=== PATIENT | female | born 1940 | race African-American/Black ===

== ENCOUNTER 2017-03-29 13:45 | Inpatient (IN) | payer OTHER ==
--- NOTE | 2017-03-29 14:21 | PDOC ---
History of Present Illness <Flor Liang - Last Filed: 03/29/17 16:38> - General History Source: Patient, Family Exam Limitations: No Limitations - History of Present Illness Initial Comments: 03/29/17 14:46 CC: R HIP PAIN, Difficulty ambulating, sent by PCP for CT concerning for septic arthritis Patient is a 76 y.o. female with a PMH of HTN, ESRD (on T,Th,Sat HD), HLD, Ovarian CA who presents today via daughter after daughter recieved a phone call from PMD, Dr. Driscoll, that patient's R hip "was gone." Patient provides a copy of CT and MRI reports with CT showing pleural effusion concerning for septic arthritis. Patient notes she has been unable to ambulate for approximately 1 month. Patient denies any subjective fever, chills, nausea of vomiting. Patient's daughter @ bedside who often assists her mother with ADL's notes that she has not noticed any erythema or swelling of the R hip though she has noted some tenderness to palpation. PMD: Dr. Driscoll Past Surgical: R knee replacement (2009); Hysterectomy (date unknown) Social: (-) nicotine, (-) alcohol, (-) marijuana/cocaine/heroin <Nemo Keane - Last Filed: 03/29/17 19:17> - General Chief Complaint: Pain Stated Complaint: ADMIT (PCP SENT) Time Seen by Provider: 03/29/17 14:05 Past History <Flor Liang - Last Filed: 03/29/17 16:38> - Past Medical History Anemia: Yes Asthma: No Cancer: No Cardiac Disorders: Yes (HTN) CVA: No COPD: No CHF: No Dementia: No Diabetes: Yes Dialysis: Yes (M-W-F) GI Disorders: No Disorders: No HTN: Yes Hypercholesterolemia: Yes Liver Disease: No Seizures: No Thyroid Disease: No - Surgical History Abdominal Surgery: No Cholecystectomy: Yes Lung Surgery: No Orthopedic Surgery: Yes (RT KNEE REPLACEMENT) - Immunization History Immunization Up to Date: Yes - Psycho/Social/Smoking Cessation Hx Anxiety: No Suicidal Ideation: No Smoking History: Never smoked Have you smoked in the past 12 months: No Number of Cigarettes Smoked Daily: 0 Hx Alcohol Use: No Drug/Substance Use Hx: No Substance Use Type: None Hx Substance Use Treatment: No <Nemo eKane - Last Filed: 03/29/17 19:17> - Past Medical History Allergies/Adverse Reactions: Allergies Allergy/AdvReac Type Severity Reaction Status Date / Time No Known Drug Allergies Allergy Verified 03/29/17 13:49 Home Medications: Ambulatory Orders Amlodipine Besylate [Norvasc -] 10 mg PO DAILY 08/02/14 Losartan Potassium 100 mg PO DAILY 08/02/14 Ranitidine HCl 150 mg PO BID #0 08/06/14 Atorvastatin Ca [Lipitor] 10 mg PO HS 03/29/17 Labetalol HCl [Normodyne -] 300 mg PO BID 03/29/17 Sevelamer Carbonate [Renvela] 800 mg PO TID 03/29/17 Review of Systems - Review of Systems Constitutional: No: Chills, Diaphoresis, Fever, Malaise HEENTM: No: Blurred Vision, Double Vision, Tinnitus, Hearing Loss Respiratory: No: Cough, Orthopnea, Shortness of Breath, Wheezing Cardiac (ROS): No: Chest Pain, Edema, Lightheadedness, Palpitations ABD/GI: No: Constipated, Diarrhea : No: Burning, Dysuria Musculoskeletal: No: Back Pain, Gout, Joint Pain, Joint Swelling Psychiatric: No: Anxiety, Depression All Other Systems: Reviewed and Negative <Betsy Keaneica - Last Filed: 03/29/17 19:17> *Physical Exam - Vital Signs Last Vital Signs Temp Pulse Resp BP Pulse Ox 97.7 F 62 20 144/72 97 03/29/17 13:46 03/29/17 13:46 03/29/17 13:46 03/29/17 13:46 03/29/17 13:46 <Flor Liang - Last Filed: 03/29/17 16:38> - Vital Signs Last Vital Signs Temp Pulse Resp BP Pulse Ox 97.7 F 62 20 144/72 97 03/29/17 13:46 03/29/17 13:46 03/29/17 13:46 03/29/17 13:46 03/29/17 13:46 - Physical Exam General Appearance: Yes: Nourished, Appropriately Dressed HEENT: positive: EOMI, NI Neck: positive: Trachea midline, Supple Respiratory/Chest: positive: Lungs Clear, Normal Breath Sounds Cardiovascular: positive: Regular Rhythm, Regular Rate, S1, S2 Gastrointestinal/Abdominal: positive: Flat, Soft Musculoskeletal: positive: Decreased Range of Motion (Neurovascularly intact in B/L LE (3+ pedal pulses) ), Other Extremity: positive: Tender (R hip TTP, no appreciable erythema, swelling ), Other. negative: Swelling, Erythema Integumentary: positive: Normal Color, Dry, Warm, Other (Full integumentary examination revealed no ulcers) Neurologic: positive: manager manufacturing II-XII NML intact, Fully Oriented, Alert, Other (B/L LE strength 4/5) <Nemo Keane - Last Filed: 03/29/17 19:17> ED Treatment Course - LABORATORY CBC & Chemistry Diagram: 03/29/17 14:45 03/29/17 14:45 - ADDITIONAL ORDERS Additional order review: Laboratory Results 03/29/17 03/29/17 16:00 14:45 Sodium 131 L Potassium 4.6 Chloride 91 L D Carbon Dioxide 30 Anion Gap 10 BUN 32 H D Creatinine 5.1 H D Random Glucose 101 Calcium 9.9 D C-Reactive Protein 0.7 H 03/29/17 14:45 RBC 4.03 D MCV 89.7 MCHC 32.7 RDW 17.3 H MPV 8.5 D Neutrophils % 59.4 Lymphocytes % 26.2 D Monocytes % 9.2 Eosinophils % 3.7 Basophils % 1.5 <Flor Liang - Last Filed: 03/29/17 16:38> - LABORATORY CBC & Chemistry Diagram: 03/29/17 14:45 03/29/17 14:45 <Nemo Keane - Last Filed: 03/29/17 19:17> Medical Decision Making - Medical Decision Making 03/29/17 14:58 Patient is a 76 y.o. female who presents for CT concerning for R hip septic arthritis. On PE patient is neurovascularly intact and has limited ROM of RLE without any appreciable erythema or swelling of R hip. Bilateral LE strength is 4/5 Full integumentary exam shows no ulcerations thus not a likely source of infection. Phone call by received Dr. Guidry (ID) - will evaluate patient @ bedside in ED - holding Abx until that time. Differential Diagnosis includes Avascular necrosis of the hip vs. Septic arthritis of hip joint vs. spinal pathology. PLAN 1. Blood Cultures x2 2. CBC, BMP 3. ESR, CRP 4. CXR, EKG - for admission 03/29/17 16:16 Patient's CBC remarkable for no leukocytosis. Patient remains afebrile. Patient evaluated by Dr. Shaw (avionics integration engineer for patient's PCP Dr. Driscoll) will be admitted to inpatient medicine service. 03/29/17 18:[address] Guidry in ED -Lumbar spine MRI showed possible osteomyelitis of lumbar spine. <Nemo Keane - Last Filed: 03/29/17 19:17> *DC/Admit/Observation/Transfer - Discharge Dispostion Admit: Yes <Flor Liang - Last Filed: 03/29/17 16:38> - Discharge Dispostion Admit: Yes - Attestations Physician Attestion: Physician Attestation: All decision making and procedures as documented in this note were under my medical decision making. - Dr. Nemo Keane 03/29/17 18:09 <Nemo Keane - Last Filed: 03/29/17 19:17> Diagnosis at time of Disposition: Osteomyelitis - Referrals
[2017-03-29 15:05] LABS: BASOPHIL 1.5 % (0-2.0); EOSINOPHIL 3.7 % (0-4.5); MCH 29.4 pg (25.7-33.7); MCHC 32.7 g/dl (32.0-36.0); MEAN CELL VOLUME 89.7 fl (80-96); MEAN PLT VOLUME 8.5 fl (7.5-11.1); NEUTROPHILS 59.4 % (42.8-82.8); PLATELET COUNT 186 K/MM3 (134-434); RDW 17.3 % (11.6-15.6); WHITE BLOOD COUNT 5.4 K/mm3 (4.0-10.0)
[2017-03-29 15:25] LABS: ANION GAP 10 (8-16); CALCIUM 9.9 mg/dL (8.5-10.1); CO2 30 mmol/L (21-32); CREATININE 5.1 mg/dL (0.55-1.02); GLUCOSE,RANDOM 101 mg/dL (74-106)
--- NOTE | 2017-03-29 16:15 | HP ---
Admitting History and Physical - Primary Care Physician PCP: Gautam Driscoll - Admission Chief Complaint: My hip hurts History of Present Illness: Ms Crain is a very pleasant 76 year old female who was asked to come in by her PCP Dr Driscoll for concern for a R septic hip joint. She says that approximately 2 weeks ago she developed pain in her R hip. She has not had any trauma to the area. She has not noticed any skin breakage either. She says it came on spontaneously. She describes the pain as an ache, constant, 8/10, radiating to her mid thigh. She says the pain is making it difficult for her to ambulate. She was seen by Dr Driscoll and had an MRI of the spine and CT scan of the hip performed last week. After results were obtained, Dr Driscoll requested patient go to the hospital but at that time she was not feeling bad enough and declined. However the pain and difficulty walking worsened and she was asked to come in again today which she did. Aside from pain she is without complaint. She denies fevers, chills, lightheadedness, dizziness, falls, passing out, chest pain or pressure, shortness of breath, coughing, abdominal pain, nausea, vomiting, anorexia, diarrhea, or swelling. She says she has chronic constipation and this has not changed. She does not make urine secondary to ESRD. History Source: Patient Limitations to Obtaining History: No Limitations - Past Medical History Cardiovascular: Yes: HTN, Hyperlipdemia Renal/: Yes: Renal Failure, Hemodialysis Heme/Onc: Yes: Other (ovarian cancer s/p tahbswo) Endocrine: Yes: Diabetes Mellitus (diet controlled) - Past Surgical History Past Surgical History: Yes: AV Fistula/Graft (recent), Hysterectomy (for ovar ca ), Joint Replacement (R knee), Oopherectomy (for ovar ca), Upper Endoscopy ( several mos ago, negative) - Smoking History Smoking history: Never smoked Have you smoked in the past 12 months: No Aproximately how many cigarettes per day: 0 - Alcohol/Substance Use Hx Alcohol Use: No History of Substance Use: reports: None - Social History ADL: Support Services History of Recent Travel: No Home Medications - Allergies Allergies/Adverse Reactions: Allergies Allergy/AdvReac Type Severity Reaction Status Date / Time No Known Drug Allergies Allergy Verified 03/29/17 13:49 - Home Medications Home Medications: Ambulatory Orders Amlodipine Besylate [Norvasc -] 10 mg PO DAILY 08/02/14 Ferrous Sulfate [Feosol] 325 mg PO TID 08/02/14 Losartan Potassium 25 mg PO DAILY 08/02/14 Pantoprazole Sodium [Protonix -] 40 mg PO DAILY 08/02/14 Simvastatin [Zocor -] 20 mg PO DAILY 08/02/14 Labetalol HCl [Normodyne -] 200 mg PO BID #0 08/06/14 Ranitidine HCl 150 mg PO BID #0 08/06/14 Docusate Sodium [Colace -] 100 mg PO HS 08/19/14 Magnesium Oxide 400 mg PO DAILY 02/27/15 Family Disease History - Family Disease History Family Disease History: Diabetes: Sister, Heart Disease: Sister, Other: Mother ( hypertension) Review of Systems Findings/Remarks: Full review of systems obtained, as per HPI and otherwise negative Physical Examination Vital Signs: Vital Signs Temperature 36.5 C 03/29/17 13:46 Pulse Rate 62 03/29/17 13:46 Respiratory Rate 20 03/29/17 13:46 Blood Pressure 144/72 03/29/17 13:46 O2 Sat by Pulse Oximetry (%) 97 03/29/17 13:46 Constitutional: Yes: Well Nourished, No Distress, Calm Eyes: Yes: Conjunctiva Clear, EOM Intact, PERRL HENT: Yes: Atraumatic, Normocephalic Cardiovascular: Yes: Regular Rate and Rhythm. No: Gallop, Murmur, Rub Respiratory: Yes: Regular, CTA Bilaterally. No: Rales, Rhonchi, Wheezes Gastrointestinal: Yes: Normal Bowel Sounds, Soft. No: Distention, Tenderness Extremities: Yes: WNL Edema: No Integumentary: Yes: WNL. No: Rash Labs: CBC, BMP 03/29/17 14:45 03/29/17 14:45 Imaging - Results Cat Scan: Report Reviewed MRI: Report Reviewed Problem List - Problems (1) Avascular necrosis Assessment/Plan: -patient presents with R hip pain and abnormal CT scan -while concern for septic joint, patient does not appear septic at this time -no signs of infection -possible avascular necrosis, but needs evaluation for possible septic joint -admit to the hospital -ID consulted to evaluate -blood cultures -ortho consult -pain control and PT Code(s): M87.00 - IDIOPATHIC ASEPTIC NECROSIS OF UNSPECIFIED BONE (2) Diabetes Assessment/Plan: -diet controlled -diabetic diet Code(s): E11.9 - TYPE 2 DIABETES MELLITUS WITHOUT COMPLICATIONS (3) ESRD (end stage renal disease) Assessment/Plan: -consult nephrology -continue HD per schedule Code(s): N18.6 - END STAGE RENAL DISEASE (4) Hyperlipidemia Assessment/Plan: -continue lipitor Code(s): E78.5 - HYPERLIPIDEMIA, UNSPECIFIED (5) Hypertension Assessment/Plan: -continue amlodipine, losartan, and labetalol -monitor Code(s): I10 - ESSENTIAL (PRIMARY) HYPERTENSION (6) GERD (gastroesophageal reflux disease) Assessment/Plan: -continue ranitidine Code(s): K21.9 - GASTRO-ESOPHAGEAL REFLUX DISEASE WITHOUT ESOPHAGITIS
--- NOTE | 2017-03-29 16:37 | PDOC ---
Attending Attestation - Resident Resident Name: Nemo Keane - ED Attending Attestation I have performed the following: I have examined & evaluated the patient, The case was reviewed & discussed with the resident, I agree w/resident's findings & plan, Exceptions are as noted - HPI HPI: 03/29/17 16:35 76 yo female with a PMH of HTN, ESRD (on T,Th,Sat HD), HLD, Ovarian CA here with c/o hip pain cant walk . had recent mri concerns for hip effusion, possible septic arthritis. no f/c no other compalints. - Physicial Exam PE: 03/29/17 16:37 awake alert lungs clear heart RRR no mrg abd soft nt nd . ext wwp - Medical Decision Making 03/29/17 16:37 plan will admit for possible ir tap. per IDn, no abx as of yet labs cultures.
[2017-03-29] MEDS ORDERED: HEPARIN NA (PORCINE) 5,000 UNITS/ML 1ML VIAL ONE (18:00)
[2017-03-29] MEDS: HEPARIN NA (PORCINE) 5,000 UNITS/ML 1ML VIAL SQ SCH (18:01)
--- NOTE | 2017-03-29 18:55 | CONSULT ---
Consult Consult Specialty:: infectious diseases Reason for Consultation:: pain in hip - History of Present Illness Chief Complaint: hip pain History of Present Illness: 76 year old female who was asked to come in concern for a R septic hip joint. She says that approximately 2 weeks ago she developed pain in her R hip. She has not had any trauma to the area. She has not noticed any skin breakage either. She says it came on spontaneously. She describes the pain as an ache, constant, 8/10, radiating to her mid thigh. She says the pain is making it difficult for her to ambulate. She was seen by Dr Driscoll and had an MRI of the spine and CT scan of the hip performed last week. After results were obtained, Dr Driscoll requested patient go to the hospital but at that time she was not feeling bad enough and declined. However the pain and difficulty walking worsened and she was asked to come in again today which she did. Aside from pain she is without complaint. She denies fevers, chills, lightheadedness, dizziness, falls, passing out, chest pain or pressure, shortness of breath, coughing, abdominal pain, nausea, vomiting, anorexia, diarrhea, or swelling. patient complaining of r hip pain which is still present .apart from hip pain patient has no other issues no fever,the left side does not have any pain - History Source History Provided By: Patient, Medical Record Limitations to Obtaining History: Poor Historian - Past Medical History Cardio/Vascular: Yes: HTN, Hyperlipdemia Renal/: Yes: Renal Failure, Hemodialysis Endocrine: Yes: Diabetes Mellitus (diet controlled) - Past Surgical History Past Surgical History: Yes: AV Fistula/Graft (recent), Hysterectomy (for ovar ca ), Joint Replacement (R knee), Oopherectomy (for ovar ca), Upper Endoscopy ( several mos ago, negative) - Alcohol/Substance Use Hx Alcohol Use: No History of Substance Use: reports: None - Smoking History Smoking history: Never smoked Have you smoked in the past 12 months: No Aproximately how many cigarettes per day: 0 - Social History Usual Living Arrangement: With Child ADL: Support Services History of Recent Travel: No Home Medications - Allergies Allergies/Adverse Reactions: Allergies Allergy/AdvReac Type Severity Reaction Status Date / Time No Known Drug Allergies Allergy Verified 03/29/17 13:49 - Home Medications Home Medications: Ambulatory Orders Amlodipine Besylate [Norvasc -] 10 mg PO DAILY 08/02/14 Losartan Potassium 100 mg PO DAILY 08/02/14 Ranitidine HCl 150 mg PO BID #0 08/06/14 Atorvastatin Ca [Lipitor] 10 mg PO HS 03/29/17 Labetalol HCl [Normodyne -] 300 mg PO BID 03/29/17 Sevelamer Carbonate [Renvela -] 800 mg PO TID 03/29/17 Docusate Sodium [Colace -] 100 mg PO BID #60 cap 03/30/17 Oxycodone HCl [Roxicodone -] 5 mg PO Q4H PRN #30 tablet MDD 30mg 03/30/17 Polyethylene Glycol 3350 [Miralax 119 gm Btl -] 17 gm PO DAILY #1 bottle Family Disease History - Family Disease History Family Disease History: Diabetes: Sister, Heart Disease: Sister, Other: Mother ( hypertension) Review of Systems - Review of Systems Constitutional: reports: No Symptoms Eyes: reports: No Symptoms HENT: reports: No Symptoms Neck: reports: No Symptoms Cardiovascular: reports: No Symptoms Respiratory: reports: No Symptoms Gastrointestinal: reports: No Symptoms Genitourinary: reports: No Symptoms Musculoskeletal: reports: Joint Pain (rt hip) Integumentary: reports: No Symptoms Neurological: reports: No Symptoms Endocrine: reports: No Symptoms Hematology/Lymphatic: reports: No Symptoms Psychiatric: reports: No Symptoms Physical Exam Vital Signs: Vital Signs Temperature 98.0 F 03/29/17 18:16 Pulse Rate 64 03/29/17 18:38 Respiratory Rate 20 03/29/17 18:38 Blood Pressure 160/73 03/29/17 18:38 O2 Sat by Pulse Oximetry (%) 95 03/29/17 18:38 Constitutional: Yes: Calm, Moderate Distress Eyes: Yes: Conjunctiva Clear HENT: Yes: Atraumatic Neck: Yes: Supple Respiratory: Yes: Regular, CTA Bilaterally Gastrointestinal: Yes: Normal Bowel Sounds, Soft Musculoskeletal: Yes: Other Extremities: Yes: Other Neurological: Yes: Alert, Oriented Psychiatric: Yes: Alert, Oriented Imaging - Results Cat Scan: Report Reviewed, Image Reviewed MRI: Report Reviewed, Image Reviewed Assessment/Plan Problem List - Problems (1) Avascular necrosis Code(s): M87.00 - IDIOPATHIC ASEPTIC NECROSIS OF UNSPECIFIED BONE (2) Diabetes Code(s): E11.9 - TYPE 2 DIABETES MELLITUS WITHOUT COMPLICATIONS (3) ESRD (end stage renal disease) Code(s): N18.6 - END STAGE RENAL DISEASE (4) Hyperlipidemia Code(s): E78.5 - HYPERLIPIDEMIA, UNSPECIFIED (5) Hypertension Code(s): I10 - ESSENTIAL (PRIMARY) HYPERTENSION (6) GERD (gastroesophageal reflux disease) Code(s): K21.9 - GASTRO-ESOPHAGEAL REFLUX DISEASE WITHOUT ESOPHAGITIS changes in the lumbar spine looked at the mri i do not think patient has septic joint,but interestingly patient does have changes in the lumbar region and i am worried looking at the images there could be destruction of vertebras which could be discitis ,osteo or also could be malignancy or just plain artritis destruction her crp and other lab work is normal but her changes are little worrisome plan will not start on any abx i suggest patient get bone biopsy to figure out what exactly is happening rest continue to monitor ortho to see the patient
[2017-03-29 21:02] VITALS: BMI 25.0
[2017-03-29] MEDS: LABETALOL HCL 100 MG TABLET (FP) PO SCH (21:12)
[2017-03-29] MEDS: DOCUSATE SODIUM 100 MG CAPSULE (FP) PO SCH (21:12)
[2017-03-29] MEDS: ATORVASTATIN CA 10 MG TABLET (FP) PO SCH (21:13)
[2017-03-29] MEDS: SEVELAMER CARBONATE 800 MG TAB (FP) PO SCH (21:13)
[2017-03-29] MEDS: oxyCODONE HCL 5 MG TABLET PO PRN (21:13)
[2017-03-30] MEDS: HEPARIN NA (PORCINE) 5,000 UNITS/ML 1ML VIAL SQ SCH ×3 (02:42→18:39)
[2017-03-30] MEDS: oxyCODONE HCL 5 MG TABLET PO PRN ×2 (05:48→21:12)
[2017-03-30] MEDS: SEVELAMER CARBONATE 800 MG TAB (FP) PO SCH ×3 (08:14→17:15)
[2017-03-30 08:43] LABS: EOSINOPHIL 5.9 % (0-4.5); MCH 29.3 pg (25.7-33.7); MCHC 32.9 g/dl (32.0-36.0); MEAN CELL VOLUME 89.3 fl (80-96); MEAN PLT VOLUME 8.6 fl (7.5-11.1); PLATELET COUNT 137 K/MM3 (134-434); WHITE BLOOD COUNT 4.4 K/mm3 (4.0-10.0)
--- NOTE | 2017-03-30 09:00 | CONSULT ---
Consult - text type - Consultation Consultation Note: FULL CONSULT DICTATED IMP: RA RIGHT HIP WITH SEVERE CHANGES AND PROTRUSIO. NO EVIDENCE OF INFECTION PLAN: PATIENT NEEDS AND ELECTIVE TOTAL HIP REPLACEMENT. WE WILL SCHEDULE THE PATIENT ELECTIVELY UPON DC
[2017-03-30 09:06] LABS: ANION GAP 13 (8-16); CALCIUM 9.6 mg/dL (8.5-10.1); CO2 29 mmol/L (21-32); GLUCOSE,RANDOM 76 mg/dL (74-106); MAGNESIUM 2.6 mg/dL (1.8-2.4); PHOSPHOROUS 4.3 mg/dL (2.5-4.9)
--- NOTE | 2017-03-30 09:28 | CONS ---
DATE OF CONSULTATION: 03/30/2017 ORTHOPEDIC CONSULTATION HISTORY OF PRESENT ILLNESS: This is a 76-year-old rheumatoid arthritic patient complaining of worsening pain in her right hip. No recent history of fall or trauma. No fever, no chills. Patient has undergone a right total knee replacement many years ago and was doing quite well there. PHYSICAL EXAMINATION: She has poor motion in all planes of her right hip. No erythema, swelling, ecchymosis. No point tenderness. She has a wound length discrepancy of approximately 1.5 cm., left greater than right. She has excellent range of motion of her right knee with a total knee replacement scar, well healed. No point tenderness. Good stability. Calf is soft, nontender, neurovascularly intact. IMAGING: X-rays which I reviewed in the hospital showed a severely arthritic right hip with protrusio acetabulum. The right total knee replacement appears to be well placed with no evidence of loosening. LABORATORY DATA: Labs appear to be within normal limits. Normal white count. No effusion. 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 Risks, benefits, and alternatives were discussed with the patient. Patient will need an elective right total hip replacement. This can be done electively as an outpatient. Patient can be out of bed, weightbearing as tolerated, and discharged. DEL JEFFRIES M.D. [id number]
[2017-03-30] MEDS: RANITIDINE HCL 150 MG TABLET (FP) PO SCH (09:48)
[2017-03-30] MEDS: amLODIPine BESYLATE 10 MG TABLET (FP) PO SCH (09:49)
[2017-03-30] MEDS: LABETALOL HCL 100 MG TABLET (FP) PO SCH ×2 (09:49→21:12)
[2017-03-30] MEDS: LOSARTAN POTASSIUM 50 MG TABLET (FP) PO SCH (09:49)
[2017-03-30] MEDS: DOCUSATE SODIUM 100 MG CAPSULE (FP) PO SCH ×2 (09:49→21:12)
--- NOTE | 2017-03-30 10:54 | EKG ---
Test Reason : Blood Pressure : / mmHG Vent. Rate : 059 BPM Atrial Rate : 059 BPM P-R Int : 200 ms QRS Dur : 090 ms QT Int : 456 ms P-R-T Axes : 048 -20 121 degrees QTc Int : 451 ms SINUS BRADYCARDIA WITH PREMATURE ATRIAL COMPLEXES MODERATE VOLTAGE CRITERIA FOR LVH, MAY BE NORMAL VARIANT CANNOT RULE OUT SEPTAL INFARCT (CITED ON OR BEFORE 12-AUG-2014) ABNORMAL ECG WHEN COMPARED WITH ECG OF 12-AUG-2014 18:11, PREMATURE ATRIAL COMPLEXES ARE NOW PRESENT Confirmed by ALVARO MOULTON MD ([id number]) on 03/30/2017 10:53:47 AM Referred By: Confirmed By:ALVARO MOULTON MD
[2017-03-30] MEDS: POLYETHYLENE GLYCOL 3350 119 GM BTL PO SCH (11:12)
--- NOTE | 2017-03-30 12:47 | CON.NEP ---
Consult Consult Specialty:: Nephrology Referred by:: Dr. Shaw Reason for Consultation:: ESRD on HD - History of Present Illness Chief Complaint: Hip pain History of Present Illness: This is a 76 year old woman with PMhx of ESRD on HD (TTS at [facility]) x 5 years, Hypertension, Ovarian Ca who presented with hip pain and outpatient imaging studies consistent with joint effusion concerning for septic joint. Pt states that he hip has been painful and ambulation had been worsening x 2 weeks. No fever or chills. Last dialysis was Monday w/o complication. - History Source History Provided By: Patient Limitations to Obtaining History: No Limitations - Past Medical History Cardio/Vascular: Yes: HTN, Hyperlipdemia Renal/: Yes: Renal Failure, Hemodialysis Endocrine: Yes: Diabetes Mellitus (diet controlled) - Past Surgical History Past Surgical History: Yes: AV Fistula/Graft (recent), Hysterectomy (for ovar ca ), Joint Replacement (R knee), Oopherectomy (for ovar ca), Upper Endoscopy ( several mos ago, negative) - Alcohol/Substance Use Hx Alcohol Use: No History of Substance Use: reports: None - Smoking History Smoking history: Never smoked Have you smoked in the past 12 months: No Aproximately how many cigarettes per day: 0 - Social History Usual Living Arrangement: With Child ADL: Support Services History of Recent Travel: No Home Medications - Allergies Allergies/Adverse Reactions: Allergies Allergy/AdvReac Type Severity Reaction Status Date / Time No Known Drug Allergies Allergy Verified 03/29/17 13:49 - Home Medications Home Medications: Ambulatory Orders Amlodipine Besylate [Norvasc -] 10 mg PO DAILY 08/02/14 Losartan Potassium 100 mg PO DAILY 08/02/14 Ranitidine HCl 150 mg PO BID #0 08/06/14 Atorvastatin Ca [Lipitor] 10 mg PO HS 03/29/17 Labetalol HCl [Normodyne -] 300 mg PO BID 03/29/17 Sevelamer Carbonate [Renvela -] 800 mg PO TID 03/29/17 Docusate Sodium [Colace -] 100 mg PO BID #60 cap 03/30/17 Oxycodone HCl [Roxicodone -] 5 mg PO Q4H PRN #30 tablet MDD 30mg 03/30/17 Polyethylene Glycol 3350 [Miralax 119 gm Btl -] 17 gm PO DAILY #1 bottle Family Disease History - Family Disease History Family Disease History: Diabetes: Sister, Heart Disease: Sister, Other: Mother ( hypertension) Review of Systems - Review of Systems Constitutional: reports: No Symptoms Eyes: reports: No Symptoms HENT: reports: No Symptoms Neck: reports: No Symptoms Cardiovascular: reports: No Symptoms Respiratory: reports: No Symptoms Gastrointestinal: reports: No Symptoms Genitourinary: reports: No Symptoms Musculoskeletal: reports: Joint Pain Integumentary: reports: No Symptoms Neurological: reports: No Symptoms Nephrology Consult - Height Height: 5 ft 5 in - Weight Weight: 150 lb 4 oz - BMI Body Mass Index (BMI): 25.0 - Lab Results Anion Gap: Anion Gap Anion Gap 13 (8-16) 03/30/17 07:30 - Imaging Chest X-ray: Report Reviewed - Physical Examination Vital Signs: Vital Signs Temperature 97.8 F 03/30/17 11:50 Pulse Rate 58 L 03/30/17 12:25 Respiratory Rate 18 03/30/17 12:25 Blood Pressure 131/68 03/30/17 12:25 O2 Sat by Pulse Oximetry (%) 96 03/29/17 20:50 Constitutional: Yes: Well Nourished, No Distress, Calm Eyes: Yes: Conjunctiva Clear HENT: Yes: Atraumatic, Normocephalic Neck: Yes: Supple Cardiovascular: Yes: Regular Rate and Rhythm, S1, S2. No: JVD, Murmur, Rub Respiratory: Yes: Regular, CTA Bilaterally. No: Rales, Wheezes Gastrointestinal: Yes: Normal Bowel Sounds, Soft Neurological: Yes: Alert, Oriented Problem List - Problems (1) Avascular necrosis Code(s): M87.00 - IDIOPATHIC ASEPTIC NECROSIS OF UNSPECIFIED BONE (2) Diabetes Code(s): E11.9 - TYPE 2 DIABETES MELLITUS WITHOUT COMPLICATIONS (3) ESRD (end stage renal disease) Code(s): N18.6 - END STAGE RENAL DISEASE (4) Hypertension Code(s): I10 - ESSENTIAL (PRIMARY) HYPERTENSION Assessment/Plan 76 year old woman with PMhx of ESRD on HD (TTS at [facility]) x 5 years, Hypertension, Ovarian Ca who presented with hip pain and outpatient imaging studies consistent with joint effusion concerning for septic joint. #ESRD on HD Pt for her maintenance dialysis today as inpatient will plan for 3.5 hour treatment with UF as tolerated Dose all meds for intermittent HD #Degenerative Hip joint for elective hip replacement as outpatient no evidence of septic joint as per Ortho pain control Supportive care #CKD related Anemia Hgb is at goal no SHARA needed at this time #Hypertenion Continue Labetalol, Losartan, Amlodipine #Renal Osteodystrophy Continue Renvela with meals Thanks Asa Smith DO
--- NOTE | 2017-03-30 14:41 | PN ---
Progress Note, Physician Chief Complaint: Ms Crain has no new complaints. Still with pain in her right hip. No cp, sob, n/ v. Walked with PT today. Confirmed that she does not have pain in her back or numbness. - Current Medication List Current Medications: Active Medications Acetaminophen (Tylenol -) 650 mg PO Q4H PRN PRN Reason: FEVER OR PAIN Amlodipine Besylate (Norvasc -) 10 mg PO DAILY [facility] Last Admin: 03/30/17 09:49 Dose: 10 mg Atorvastatin Calcium (Lipitor -) 10 mg PO HS [facility] Last Admin: 03/29/17 21:13 Dose: 10 mg Docusate Sodium (Colace -) 100 mg PO BID [facility] Last Admin: 03/30/17 09:49 Dose: 100 mg Heparin Sodium (Porcine) (Heparin -) 5,000 unit SQ Q8H-IV [facility] Last Admin: 03/30/17 09:49 Dose: 5,000 unit Labetalol HCl (Normodyne -) 300 mg PO BID [facility] Last Admin: 03/30/17 09:49 Dose: 300 mg Losartan Potassium (Cozaar -) 100 mg PO DAILY [facility] Last Admin: 03/30/17 09:49 Dose: 100 mg Oxycodone HCl (Roxicodone -) 5 mg PO Q4H PRN PRN Reason: PAIN Last Admin: 03/30/17 05:48 Dose: 5 mg Polyethylene Glycol (Miralax (For Daily Use) -) 17 gm PO DAILY [facility] Last Admin: 03/30/17 11:12 Dose: 17 gm Ranitidine HCl (Zantac -) 150 mg PO DAILY [facility] Last Admin: 03/30/17 09:48 Dose: 150 mg Sevelamer Carbonate (Renvela -) 800 mg PO TIDCM [facility] Last Admin: 03/30/17 12:45 Dose: Not Given - Objective Vital Signs: Vital Signs Temperature 36.6 C 03/30/17 11:50 Pulse Rate 58 L 03/30/17 14:25 Respiratory Rate 18 03/30/17 14:25 Blood Pressure 128/74 03/30/17 14:25 O2 Sat by Pulse Oximetry (%) 96 03/30/17 12:09 Constitutional: Yes: Well Nourished, No Distress, Calm Cardiovascular: Yes: Regular Rate and Rhythm. No: Gallop, Murmur, Rub Respiratory: Yes: Regular, CTA Bilaterally. No: Rales, Rhonchi, Wheezes Gastrointestinal: Yes: Normal Bowel Sounds, Soft. No: Distention, Tenderness Extremities: Yes: WNL Edema: No Labs: CBC, BMP 03/30/17 07:30 03/30/17 07:30 Problem List - Problems (1) Discitis of lumbosacral region Code(s): M46.47 - DISCITIS, UNSPECIFIED, LUMBOSACRAL REGION (2) Rheumatoid arthritis involving both hips Code(s): M06.9 - RHEUMATOID ARTHRITIS, UNSPECIFIED (3) Diabetes Code(s): E11.9 - TYPE 2 DIABETES MELLITUS WITHOUT COMPLICATIONS (4) ESRD (end stage renal disease) Code(s): N18.6 - END STAGE RENAL DISEASE (5) Hyperlipidemia Code(s): E78.5 - HYPERLIPIDEMIA, UNSPECIFIED (6) Hypertension Code(s): I10 - ESSENTIAL (PRIMARY) HYPERTENSION (7) GERD (gastroesophageal reflux disease) Code(s): K21.9 - GASTRO-ESOPHAGEAL REFLUX DISEASE WITHOUT ESOPHAGITIS Assessment/Plan (1) Lumbrosacral discitis with destruction Assessment/Plan: -case d/w Dr Guidry and MRI reviewed -will obtain biopsy as concern for infection or malignancy -holdign on antibiotics until after biopsy (2) Rheumatoid arthritis of the R hip -appreciate ortho assistance -outpatient elective hip replacement -continue PT while here (3) Diabetes Assessment/Plan: -diet controlled -diabetic diet Code(s): E11.9 - TYPE 2 DIABETES MELLITUS WITHOUT COMPLICATIONS (4) ESRD (end stage renal disease) Assessment/Plan: -case d/w Dr Smith - TRS Code(s): N18.6 - END STAGE RENAL DISEASE (5) Hyperlipidemia Assessment/Plan: -continue lipitor Code(s): E78.5 - HYPERLIPIDEMIA, UNSPECIFIED (6) Hypertension Assessment/Plan: -continue amlodipine, losartan, and labetalol -monitor Code(s): I10 - ESSENTIAL (PRIMARY) HYPERTENSION (7) GERD (gastroesophageal reflux disease) Assessment/Plan: -continue ranitidine Code(s): K21.9 - GASTRO-ESOPHAGEAL REFLUX DISEASE WITHOUT ESOPHAGITIS
--- NOTE | 2017-03-30 15:24 | PN ---
Progress Note, Physician History of Present Illness: patient stable no new issues plan is for bone biopsy - Current Medication List Current Medications: Active Medications Acetaminophen (Tylenol -) 650 mg PO Q4H PRN PRN Reason: FEVER OR PAIN Amlodipine Besylate (Norvasc -) 10 mg PO DAILY [facility] Last Admin: 03/30/17 09:49 Dose: 10 mg Atorvastatin Calcium (Lipitor -) 10 mg PO HS [facility] Last Admin: 03/29/17 21:13 Dose: 10 mg Docusate Sodium (Colace -) 100 mg PO BID [facility] Last Admin: 03/30/17 09:49 Dose: 100 mg Heparin Sodium (Porcine) (Heparin -) 5,000 unit SQ Q8H-IV [facility] Last Admin: 03/30/17 09:49 Dose: 5,000 unit Labetalol HCl (Normodyne -) 300 mg PO BID [facility] Last Admin: 03/30/17 09:49 Dose: 300 mg Losartan Potassium (Cozaar -) 100 mg PO DAILY [facility] Last Admin: 03/30/17 09:49 Dose: 100 mg Oxycodone HCl (Roxicodone -) 5 mg PO Q4H PRN PRN Reason: PAIN Last Admin: 03/30/17 05:48 Dose: 5 mg Polyethylene Glycol (Miralax (For Daily Use) -) 17 gm PO DAILY [facility] Last Admin: 03/30/17 11:12 Dose: 17 gm Ranitidine HCl (Zantac -) 150 mg PO DAILY [facility] Last Admin: 03/30/17 09:48 Dose: 150 mg Sevelamer Carbonate (Renvela -) 800 mg PO TIDCM [facility] Last Admin: 03/30/17 12:45 Dose: Not Given - Objective Vital Signs: Vital Signs Temperature 97.8 F 03/30/17 11:50 Pulse Rate 58 L 03/30/17 14:55 Respiratory Rate 18 03/30/17 14:55 Blood Pressure 144/74 03/30/17 14:55 O2 Sat by Pulse Oximetry (%) 96 03/30/17 12:09 Constitutional: Yes: No Distress, Calm Cardiovascular: Yes: Regular Rate and Rhythm Respiratory: Yes: Regular, CTA Bilaterally Gastrointestinal: Yes: Normal Bowel Sounds, Soft Musculoskeletal: Yes: WNL Extremities: Yes: Other Neurological: Yes: Alert, Oriented Psychiatric: Yes: Alert, Oriented Assessment/Plan Problem List - Problems (1) Avascular necrosis Code(s): M87.00 - IDIOPATHIC ASEPTIC NECROSIS OF UNSPECIFIED BONE (2) Diabetes Code(s): E11.9 - TYPE 2 DIABETES MELLITUS WITHOUT COMPLICATIONS (3) ESRD (end stage renal disease) Code(s): N18.6 - END STAGE RENAL DISEASE (4) Hyperlipidemia Code(s): E78.5 - HYPERLIPIDEMIA, UNSPECIFIED (5) Hypertension Code(s): I10 - ESSENTIAL (PRIMARY) HYPERTENSION (6) GERD (gastroesophageal reflux disease) Code(s): K21.9 - GASTRO-ESOPHAGEAL REFLUX DISEASE WITHOUT ESOPHAGITIS changes in the lumbar spine plan await for biopsy rest continue current mgmt
[2017-03-30] MEDS: ATORVASTATIN CA 10 MG TABLET (FP) PO SCH (21:12)
[2017-03-31 06:06] LABS: HEP B SURFACE AB Reactive (.)
[2017-03-31] MEDS: oxyCODONE HCL 5 MG TABLET PO PRN ×2 (08:10→12:35)
[2017-03-31] MEDS: ACETAMINOPHEN 325 MG TABLET (FP) PO PRN ×2 (08:11→12:35)
[2017-03-31] MEDS: SEVELAMER CARBONATE 800 MG TAB (FP) PO SCH ×3 (08:12→17:16)
[2017-03-31 08:48] LABS: BASOPHIL 1.4 % (0-2.0); EOSINOPHIL 4.5 % (0-4.5); MCHC 32.5 g/dl (32.0-36.0); MEAN CELL VOLUME 89.3 fl (80-96); MEAN PLT VOLUME 8.3 fl (7.5-11.1); NEUTROPHILS 53.8 % (42.8-82.8); PLATELET COUNT 148 K/MM3 (134-434); RDW 17.1 % (11.6-15.6); WHITE BLOOD COUNT 4.4 K/mm3 (4.0-10.0)
[2017-03-31] MEDS: LABETALOL HCL 100 MG TABLET (FP) PO SCH ×2 (08:59→21:09)
[2017-03-31] MEDS: DOCUSATE SODIUM 100 MG CAPSULE (FP) PO SCH ×2 (08:59→21:09)
[2017-03-31] MEDS: LOSARTAN POTASSIUM 50 MG TABLET (FP) PO SCH (08:59)
[2017-03-31] MEDS: amLODIPine BESYLATE 10 MG TABLET (FP) PO SCH (08:59)
[2017-03-31] MEDS: RANITIDINE HCL 150 MG TABLET (FP) PO SCH (08:59)
[2017-03-31] MEDS: POLYETHYLENE GLYCOL 3350 119 GM BTL PO SCH (09:02)
[2017-03-31 09:19] LABS: MAGNESIUM 2.4 mg/dL (1.8-2.4); PHOSPHOROUS 3.4 mg/dL (2.5-4.9)
[2017-03-31 10:02] LABS: INR 1.09 (0.82-1.09)
[2017-03-31 10:36] LABS: ANION GAP 12 (8-16); CO2 30 mmol/L (21-32); CREATININE 4.2 mg/dL (0.55-1.02); GLUCOSE,RANDOM 84 mg/dL (74-106)
--- NOTE | 2017-03-31 11:59 | PN ---
Progress Note (short form) - Note Progress Note: Ortho Pt seen and examined feeling better today decr pain, incr rom nvi a/p right hip severe djd with protrusio PT pain control elective thr as outpt if continues to have pain may d/c from ortho pov d/w Dr. Huerta
--- NOTE | 2017-03-31 12:23 | PN ---
Progress Note (short form) - Note Progress Note: Renal Follow up for ESRD on HD Pt seen and examined at the bedside reports continued hip discomfort that is helped by pain meds no sob, chest pain s/p dialysis yesterday w/o complication Vital Signs Temperature 98.2 F 03/31/17 07:59 Pulse Rate 64 03/31/17 07:59 Respiratory Rate 18 03/31/17 07:59 Blood Pressure 180/76 03/31/17 07:59 O2 Sat by Pulse Oximetry (%) 96 03/31/17 08:46 Intake & Output 03/28/17 03/29/17 03/30/17 03/31/17 23:59 23:59 23:59 23:59 Intake Total 200 800 325 Balance 200 800 325 Weight 150 lb 4 oz 150 lb 4 oz Gen: NAD CVS: RRR Lungs: CTA Abd: soft NT Ext: No edema CBC, BMP 03/31/17 07:00 03/31/17 07:00 Current Medications Acetaminophen (Tylenol -) 650 mg PO Q4H PRN PRN Reason: FEVER OR PAIN Last Admin: 03/31/17 08:11 Dose: 650 mg Amlodipine Besylate (Norvasc -) 10 mg PO DAILY [facility] Last Admin: 03/31/17 08:59 Dose: 10 mg Atorvastatin Calcium (Lipitor -) 10 mg PO HS [facility] Last Admin: 03/30/17 21:12 Dose: 10 mg Docusate Sodium (Colace -) 100 mg PO BID [facility] Last Admin: 03/31/17 08:59 Dose: 100 mg Heparin Sodium (Porcine) (Heparin -) 5,000 unit SQ Q8H-IV [facility] Last Admin: 03/30/17 18:39 Dose: 5,000 unit Labetalol HCl (Normodyne -) 300 mg PO BID [facility] Last Admin: 03/31/17 08:59 Dose: 300 mg Losartan Potassium (Cozaar -) 100 mg PO DAILY [facility] Last Admin: 03/31/17 08:59 Dose: 100 mg Oxycodone HCl (Roxicodone -) 5 mg PO Q4H PRN PRN Reason: PAIN Last Admin: 03/31/17 08:10 Dose: 5 mg Polyethylene Glycol (Miralax (For Daily Use) -) 17 gm PO DAILY [facility] Last Admin: 03/31/17 09:02 Dose: 17 gm Ranitidine HCl (Zantac -) 150 mg PO DAILY [facility] Last Admin: 03/31/17 08:59 Dose: 150 mg Sevelamer Carbonate (Renvela -) 800 mg PO TIDCM [facility] Last Admin: 03/31/17 11:40 Dose: 800 mg A/P 76 year old woman with PMhx of ESRD on HD (TTS at [facility]) x 5 years, Hypertension, Ovarian Ca who presented with hip pain and outpatient imaging studies consistent with joint effusion concerning for septic joint. #ESRD on HD s/p dialysis yesterday, no acute indication for dialysis today will maintain on TTS schedule while inpatient dose all meds for intermittent HD #Degenerative Hip joint for elective hip replacement as outpatient no evidence of septic joint as per Ortho #Hypertenion Continue Labetalol, Losartan, Amlodipine BP elevated overnight, related to pain? trend BP after she gets all her meds this am #Renal Osteodystrophy Continue Renvela with meals Thanks Asa Smith DO Problem List - Problems (1) Diabetes Code(s): E11.9 - TYPE 2 DIABETES MELLITUS WITHOUT COMPLICATIONS (2) ESRD (end stage renal disease) Code(s): N18.6 - END STAGE RENAL DISEASE (3) Hypertension Code(s): I10 - ESSENTIAL (PRIMARY) HYPERTENSION
--- NOTE | 2017-03-31 12:29 | PN ---
Progress Note, Physician Chief Complaint: Ms Crain has no new complaints. Still with pain in her R hip. No cp, sob, n/v. - Current Medication List Current Medications: Active Medications Acetaminophen (Tylenol -) 650 mg PO Q4H PRN PRN Reason: FEVER OR PAIN Last Admin: 03/31/17 08:11 Dose: 650 mg Amlodipine Besylate (Norvasc -) 10 mg PO DAILY [facility] Last Admin: 03/31/17 08:59 Dose: 10 mg Atorvastatin Calcium (Lipitor -) 10 mg PO HS [facility] Last Admin: 03/30/17 21:12 Dose: 10 mg Docusate Sodium (Colace -) 100 mg PO BID [facility] Last Admin: 03/31/17 08:59 Dose: 100 mg Heparin Sodium (Porcine) (Heparin -) 5,000 unit SQ Q8H-IV [facility] Last Admin: 03/30/17 18:39 Dose: 5,000 unit Labetalol HCl (Normodyne -) 300 mg PO BID [facility] Last Admin: 03/31/17 08:59 Dose: 300 mg Losartan Potassium (Cozaar -) 100 mg PO DAILY [facility] Last Admin: 03/31/17 08:59 Dose: 100 mg Oxycodone HCl (Roxicodone -) 5 mg PO Q4H PRN PRN Reason: PAIN Last Admin: 03/31/17 08:10 Dose: 5 mg Polyethylene Glycol (Miralax (For Daily Use) -) 17 gm PO DAILY [facility] Last Admin: 03/31/17 09:02 Dose: 17 gm Ranitidine HCl (Zantac -) 150 mg PO DAILY [facility] Last Admin: 03/31/17 08:59 Dose: 150 mg Sevelamer Carbonate (Renvela -) 800 mg PO TIDCM [facility] Last Admin: 03/31/17 11:40 Dose: 800 mg - Objective Vital Signs: Vital Signs Temperature 36.8 C 03/31/17 07:59 Pulse Rate 64 03/31/17 07:59 Respiratory Rate 18 03/31/17 07:59 Blood Pressure 180/76 03/31/17 07:59 O2 Sat by Pulse Oximetry (%) 96 03/31/17 08:46 Constitutional: Yes: Well Nourished, No Distress, Calm Cardiovascular: Yes: Regular Rate and Rhythm. No: Gallop, Murmur, Rub Respiratory: Yes: Regular, CTA Bilaterally. No: Rales, Rhonchi, Wheezes Gastrointestinal: Yes: Normal Bowel Sounds, Soft. No: Distention, Tenderness Extremities: Yes: WNL Edema: No Labs: CBC, BMP 03/31/17 07:00 03/31/17 07:00 INR, PTT INR 1.09 (0.82-1.09) 03/31/17 07:00 Problem List - Problems (1) Discitis of lumbosacral region Code(s): M46.47 - DISCITIS, UNSPECIFIED, LUMBOSACRAL REGION (2) Rheumatoid arthritis involving both hips Code(s): M06.9 - RHEUMATOID ARTHRITIS, UNSPECIFIED (3) Diabetes Code(s): E11.9 - TYPE 2 DIABETES MELLITUS WITHOUT COMPLICATIONS (4) ESRD (end stage renal disease) Code(s): N18.6 - END STAGE RENAL DISEASE (5) Hyperlipidemia Code(s): E78.5 - HYPERLIPIDEMIA, UNSPECIFIED (6) Hypertension Code(s): I10 - ESSENTIAL (PRIMARY) HYPERTENSION (7) GERD (gastroesophageal reflux disease) Code(s): K21.9 - GASTRO-ESOPHAGEAL REFLUX DISEASE WITHOUT ESOPHAGITIS Assessment/Plan (1) Lumbrosacral discitis with destruction Assessment/Plan: -planning for biopsy today (2) Rheumatoid arthritis of the R hip -appreciate ortho assistance -outpatient elective hip replacement -continue PT while here (3) Diabetes Assessment/Plan: -diet controlled -diabetic diet Code(s): E11.9 - TYPE 2 DIABETES MELLITUS WITHOUT COMPLICATIONS (4) ESRD (end stage renal disease) Assessment/Plan: -nephrology following -HD TRS Code(s): N18.6 - END STAGE RENAL DISEASE (5) Hyperlipidemia Assessment/Plan: -continue lipitor Code(s): E78.5 - HYPERLIPIDEMIA, UNSPECIFIED (6) Hypertension Assessment/Plan: -continue amlodipine, losartan, and labetalol -monitor Code(s): I10 - ESSENTIAL (PRIMARY) HYPERTENSION (7) GERD (gastroesophageal reflux disease) Assessment/Plan: -continue ranitidine Code(s): K21.9 - GASTRO-ESOPHAGEAL REFLUX DISEASE WITHOUT ESOPHAGITIS
--- NOTE | 2017-03-31 13:32 | PN ---
Progress Note, Physician History of Present Illness: patient stable daughter in room pain continues patient for biopsy today - Current Medication List Current Medications: Active Medications Acetaminophen (Tylenol -) 650 mg PO Q4H PRN PRN Reason: FEVER OR PAIN Last Admin: 03/31/17 12:35 Dose: 650 mg Amlodipine Besylate (Norvasc -) 10 mg PO DAILY [facility] Last Admin: 03/31/17 08:59 Dose: 10 mg Atorvastatin Calcium (Lipitor -) 10 mg PO HS [facility] Last Admin: 03/30/17 21:12 Dose: 10 mg Docusate Sodium (Colace -) 100 mg PO BID [facility] Last Admin: 03/31/17 08:59 Dose: 100 mg Heparin Sodium (Porcine) (Heparin -) 5,000 unit SQ Q8H-IV [facility] Last Admin: 03/30/17 18:39 Dose: 5,000 unit Labetalol HCl (Normodyne -) 300 mg PO BID [facility] Last Admin: 03/31/17 08:59 Dose: 300 mg Losartan Potassium (Cozaar -) 100 mg PO DAILY [facility] Last Admin: 03/31/17 08:59 Dose: 100 mg Oxycodone HCl (Roxicodone -) 5 mg PO Q4H PRN PRN Reason: PAIN Last Admin: 03/31/17 12:35 Dose: 5 mg Polyethylene Glycol (Miralax (For Daily Use) -) 17 gm PO DAILY [facility] Last Admin: 03/31/17 09:02 Dose: 17 gm Ranitidine HCl (Zantac -) 150 mg PO DAILY [facility] Last Admin: 03/31/17 08:59 Dose: 150 mg Sevelamer Carbonate (Renvela -) 800 mg PO TIDCM [facility] Last Admin: 03/31/17 11:40 Dose: 800 mg - Objective Vital Signs: Vital Signs Temperature 98.8 F 03/31/17 13:28 Pulse Rate 60 03/31/17 12:00 Respiratory Rate 18 03/31/17 12:00 Blood Pressure 165/79 03/31/17 12:00 O2 Sat by Pulse Oximetry (%) 96 03/31/17 08:46 Constitutional: Yes: No Distress, Calm Cardiovascular: Yes: Regular Rate and Rhythm Respiratory: Yes: Regular, CTA Bilaterally Gastrointestinal: Yes: Normal Bowel Sounds, Soft Musculoskeletal: Yes: Other Extremities: Yes: Other Neurological: Yes: Alert, Oriented Psychiatric: Yes: Alert Labs: CBC, BMP 03/31/17 07:00 03/31/17 07:00 INR, PTT INR 1.09 (0.82-1.09) 03/31/17 07:00 Assessment/Plan Problem List - Problems (1) Avascular necrosis Code(s): M87.00 - IDIOPATHIC ASEPTIC NECROSIS OF UNSPECIFIED BONE (2) Diabetes Code(s): E11.9 - TYPE 2 DIABETES MELLITUS WITHOUT COMPLICATIONS (3) ESRD (end stage renal disease) Code(s): N18.6 - END STAGE RENAL DISEASE (4) Hyperlipidemia Code(s): E78.5 - HYPERLIPIDEMIA, UNSPECIFIED (5) Hypertension Code(s): I10 - ESSENTIAL (PRIMARY) HYPERTENSION (6) GERD (gastroesophageal reflux disease) Code(s): K21.9 - GASTRO-ESOPHAGEAL REFLUX DISEASE WITHOUT ESOPHAGITIS changes in the lumbar spine plan await for biopsy rest continue current mgmt once we have biopsy then further mgmt
[2017-03-31] MEDS: HEPARIN NA (PORCINE) 5,000 UNITS/ML 1ML VIAL SQ SCH (17:16)
[2017-03-31] MEDS: ATORVASTATIN CA 10 MG TABLET (FP) PO SCH (21:09)
[2017-04-01] MEDS: HEPARIN NA (PORCINE) 5,000 UNITS/ML 1ML VIAL SQ SCH ×3 (01:53→18:43)
[2017-04-01] MEDS: SEVELAMER CARBONATE 800 MG TAB (FP) PO SCH ×3 (07:42→17:26)
[2017-04-01 09:29] LABS: MCH 29.4 pg (25.7-33.7); MCHC 32.7 g/dl (32.0-36.0); MEAN CELL VOLUME 89.9 fl (80-96); MEAN PLT VOLUME 8.9 fl (7.5-11.1); PLATELET COUNT 141 K/MM3 (134-434); RDW 17.2 % (11.6-15.6); WHITE BLOOD COUNT 4.7 K/mm3 (4.0-10.0)
[2017-04-01 09:55] LABS: ALBUMIN 2.6 g/dl (3.4-5.0); ALK PHOS 76 U/L (45-117); ANION GAP 12 (8-16); BILIRUBIN,TOTAL 2.1 mg/dL (0.2-1.0); CALCIUM 9.5 mg/dL (8.5-10.1); CO2 29 mmol/L (21-32); CREATININE 5.4 mg/dL (0.55-1.02); GLUCOSE,RANDOM 140 mg/dL (74-106); PHOSPHOROUS 3.8 mg/dL (2.5-4.9); SGOT/AST 17 U/L (15-37); SGPT/ALT 12 U/L (12-78); TOT PROT 6.9 g/dl (6.4-8.2)
--- NOTE | 2017-04-01 10:59 | PN ---
Physical Exam: Hospitalist covering Dr. Shaw. SUBJECTIVE: Patient seen and examined. Complaining of back pain. No fevers/ chills. OBJECTIVE: Vital Signs Period Temp Pulse Resp BP Sys/Jha Pulse Ox Last 24 Hr 98.4 F-99.0 F 53-63 16-20 162-185/70-92 97-97 GENERAL: The patient is awake, alert, and fully oriented, in no acute distress. HEAD: Normal with no signs of trauma. EYES: PERRL, extraocular movements intact, sclera anicteric, conjunctiva clear. No ptosis. ENT: Ears normal, nares patent, oropharynx clear without exudates, moist mucous membranes. NECK: Trachea midline, full range of motion, supple. LUNGS: Breath sounds equal, clear to auscultation bilaterally, no wheezes, no crackles, no accessory muscle use. HEART: Regular rate and rhythm, S1, S2 . Soft systolic murmur. No rub or gallop. ABDOMEN: Soft, nontender, nondistended, normoactive bowel sounds, no guarding, no rebound, no hepatosplenomegaly, no masses. EXTREMITIES: 2+ pulses, warm, well-perfused, no edema. NEUROLOGICAL: Cranial nerves II through XII grossly intact. 5/5 upper and lower extremity strength bilaterally, no saddle anesthesia. Normal speech, gait not observed. PSYCH: Normal mood, normal affect. SKIN: Warm, dry, normal turgor, no rashes or lesions noted Laboratory Results - last 24 hr 04/01/17 04/01/17 07:45 07:45 WBC 4.7 RBC 3.51 L Hgb 10.3 L Hct 31.5 L MCV 89.9 MCH 29.4 MCHC 32.7 RDW 17.2 H Plt Count 141 MPV 8.9 Sodium 134 L Potassium 4.1 Chloride 93 L Carbon Dioxide 29 Anion Gap 12 BUN 35 H D Creatinine 5.4 H D Creat Clearance w eGFR 7.68 Random Glucose 140 H D Calcium 9.5 Phosphorus 3.8 Total Bilirubin 2.1 H D AST 17 ALT 12 D Alkaline Phosphatase 76 D Total Protein 6.9 Albumin 2.6 L Active Medications Generic Name Dose Route Start Last Admin Trade Name Freq PRN Reason Stop Dose Admin Acetaminophen 650 mg 03/29/17 16:06 03/31/17 12:35 Tylenol - PO 650 mg Q4H PRN Administration FEVER OR PAIN Amlodipine Besylate 10 mg 03/30/17 10:00 03/31/17 08:59 Norvasc - PO 10 mg DAILY NOE Administration Atorvastatin Calcium 10 mg 03/29/17 22:00 03/31/17 21:09 Lipitor - PO 10 mg HS NOE Administration Docusate Sodium 100 mg 03/29/17 22:00 03/31/17 21:09 Colace - PO 100 mg BID NOE Administration Heparin Sodium (Porcine) 5,000 unit 03/29/17 18:00 04/01/17 01:53 Heparin - SQ 5,000 unit Q8H-IV NOE Administration Labetalol HCl 300 mg 03/29/17 22:00 03/31/17 21:09 Normodyne - PO 300 mg BID NOE Administration Losartan Potassium 100 mg 03/30/17 10:00 03/31/17 08:59 Cozaar - PO 100 mg DAILY NOE Administration Oxycodone HCl 5 mg 03/29/17 16:06 03/31/17 12:35 Roxicodone - PO 5 mg Q4H PRN Administration PAIN Polyethylene Glycol 17 gm 03/30/17 10:00 03/31/17 09:02 Miralax (For Daily Use) - PO 17 gm DAILY NOE Administration Ranitidine HCl 150 mg 03/30/17 10:00 03/31/17 08:59 Zantac - PO 150 mg DAILY NOE Administration Sevelamer Carbonate 800 mg 03/29/17 17:30 04/01/17 07:42 Renvela - PO Not Given TIDCM NOE ASSESSMENT/PLAN: 76 year old female with possible discitis. Assessment/Plan (1) Lumbrosacral discitis with destruction Assessment/Plan: -Observe off abx per ID -Plan for biopsy Monday (2) Rheumatoid arthritis of the R hip -No septic arthritis per orthopedics -Plan per elective THR (3) Diabetes Assessment/Plan: -Diet-controlled Code(s): E11.9 - TYPE 2 DIABETES MELLITUS WITHOUT COMPLICATIONS (4) ESRD (end stage renal disease) Assessment/Plan: -HD today -Nephrology following Code(s): N18.6 - END STAGE RENAL DISEASE (5) Hyperlipidemia Assessment/Plan: -Continue Lipitor Code(s): E78.5 - HYPERLIPIDEMIA, UNSPECIFIED (6) Hypertension Assessment/Plan: -Continue amlodipine, losartan, and labetalol -BP above goal; re-assess s/p HD, may need to titrate regimen Code(s): I10 - ESSENTIAL (PRIMARY) HYPERTENSION (7) GERD (gastroesophageal reflux disease) Assessment/Plan: -Continue ranitidine Code(s): K21.9 - GASTRO-ESOPHAGEAL REFLUX DISEASE WITHOUT ESOPHAGITIS Ppx: [facility] Dispo: Observation status. Visit type - Emergency Visit Emergency Visit: Yes ED Registration Date: 03/30/17 Care time: The patient presented to the Emergency Department on the above date and was hospitalized for further evaluation of their emergent condition. - New Patient This patient is new to me today: Yes Date on this admission: 04/02/17 - Critical Care Critical Care patient: No
--- NOTE | 2017-04-01 11:24 | PN ---
Progress Note (short form) - Note Progress Note: Renal Follow up for ESRD on HD Pt seen and examined during dialysis BP 160/80s access with good flow pt w/o complaints Vital Signs Temperature 98.4 F 04/01/17 06:00 Pulse Rate 53 L 04/01/17 10:10 Respiratory Rate 18 04/01/17 10:10 Blood Pressure 178/76 04/01/17 10:10 O2 Sat by Pulse Oximetry (%) 97 04/01/17 06:40 Intake & Output 03/29/17 03/30/17 03/31/17 04/01/17 23:59 23:59 23:59 23:59 Intake Total 528 669 0955 300 Balance 434 244 6757 300 Weight 150 lb 4 oz 150 lb 4 oz Gen: NAD CVS: RRR Lungs: CTA Abd: soft NT Ext: No edema CBC, BMP 04/01/17 07:45 Laboratory Tests 04/01/17 07:45 Sodium 134 L Potassium 4.1 Chloride 93 L Carbon Dioxide 29 Anion Gap 12 BUN 35 H D Creatinine 5.4 H D Calcium 9.5 Phosphorus 3.8 Current Medications Acetaminophen (Tylenol -) 650 mg PO Q4H PRN PRN Reason: FEVER OR PAIN Last Admin: 03/31/17 12:35 Dose: 650 mg Amlodipine Besylate (Norvasc -) 10 mg PO DAILY [facility] Last Admin: 03/31/17 08:59 Dose: 10 mg Atorvastatin Calcium (Lipitor -) 10 mg PO HS [facility] Last Admin: 03/31/17 21:09 Dose: 10 mg Docusate Sodium (Colace -) 100 mg PO BID [facility] Last Admin: 03/31/17 21:09 Dose: 100 mg Heparin Sodium (Porcine) (Heparin -) 5,000 unit SQ Q8H-IV [facility]E Last Admin: 04/01/17 01:53 Dose: 5,000 unit Labetalol HCl (Normodyne -) 300 mg PO BID [facility] Last Admin: 03/31/17 21:09 Dose: 300 mg Losartan Potassium (Cozaar -) 100 mg PO DAILY [facility] Last Admin: 03/31/17 08:59 Dose: 100 mg Oxycodone HCl (Roxicodone -) 5 mg PO Q4H PRN PRN Reason: PAIN Last Admin: 03/31/17 12:35 Dose: 5 mg Polyethylene Glycol (Miralax (For Daily Use) -) 17 gm PO DAILY [facility] Last Admin: 03/31/17 09:02 Dose: 17 gm Ranitidine HCl (Zantac -) 150 mg PO DAILY [facility] Last Admin: 03/31/17 08:59 Dose: 150 mg Sevelamer Carbonate (Renvela -) 800 mg PO TIDCM [facility] Last Admin: 04/01/17 07:42 Dose: Not Given A/P 76 year old woman with PMhx of ESRD on HD (TTS at [facility]) x 5 years, Hypertension, Ovarian Ca who presented with hip pain and outpatient imaging studies consistent with joint effusion concerning for septic joint. #ESRD on HD tolerating dialysis well will maintain on TTS schedule as inpatient #Degenerative Hip joint for elective hip replacement as outpatient no evidence of septic joint as per Ortho #Hypertenion Continue Labetalol, Losartan d/c amlodpine, start nifedpine xl 30mg Daily goal BP < 140/90 #Renal Osteodystrophy Continue Renvela with meals Thanks Asa Smith DO Problem List - Problems (1) Diabetes Code(s): E11.9 - TYPE 2 DIABETES MELLITUS WITHOUT COMPLICATIONS (2) ESRD (end stage renal disease) Code(s): N18.6 - END STAGE RENAL DISEASE (3) Hypertension Code(s): I10 - ESSENTIAL (PRIMARY) HYPERTENSION
[2017-04-01 11:35] LABS: CREATININE 1.9 mg/dL (0.55-1.02)
[2017-04-01] MEDS: NIFEdipine E.R. 30 MG TABLET (FP) PO SCH (11:44)
[2017-04-01] MEDS: RANITIDINE HCL 150 MG TABLET (FP) PO SCH (11:44)
[2017-04-01] MEDS: LABETALOL HCL 100 MG TABLET (FP) PO SCH ×2 (11:45→21:40)
[2017-04-01] MEDS: DOCUSATE SODIUM 100 MG CAPSULE (FP) PO SCH ×2 (11:45→21:45)
[2017-04-01] MEDS: LOSARTAN POTASSIUM 50 MG TABLET (FP) PO SCH (11:45)
[2017-04-01] MEDS: POLYETHYLENE GLYCOL 3350 119 GM BTL PO SCH (11:45)
[2017-04-01] MEDS: amLODIPine BESYLATE 10 MG TABLET (FP) PO SCH (11:59)
--- NOTE | 2017-04-01 12:34 | PN ---
Progress Note, Physician History of Present Illness: patient stable no new issues - Current Medication List Current Medications: Active Medications Acetaminophen (Tylenol -) 650 mg PO Q4H PRN PRN Reason: FEVER OR PAIN Last Admin: 03/31/17 12:35 Dose: 650 mg Atorvastatin Calcium (Lipitor -) 10 mg PO HS [facility] Last Admin: 03/31/17 21:09 Dose: 10 mg Docusate Sodium (Colace -) 100 mg PO BID [facility] Last Admin: 04/01/17 11:45 Dose: 100 mg Heparin Sodium (Porcine) (Heparin -) 5,000 unit SQ Q8H-IV [facility] Last Admin: 04/01/17 11:45 Dose: 5,000 unit Labetalol HCl (Normodyne -) 300 mg PO BID [facility] Last Admin: 04/01/17 11:45 Dose: 300 mg Losartan Potassium (Cozaar -) 100 mg PO DAILY [facility] Last Admin: 04/01/17 11:45 Dose: 100 mg Nifedipine (Procardia Xl -) 30 mg PO DAILY [facility] Last Admin: 04/01/17 11:44 Dose: 30 mg Oxycodone HCl (Roxicodone -) 5 mg PO Q4H PRN PRN Reason: PAIN Last Admin: 03/31/17 12:35 Dose: 5 mg Polyethylene Glycol (Miralax (For Daily Use) -) 17 gm PO DAILY [facility] Last Admin: 04/01/17 11:45 Dose: 17 gm Ranitidine HCl (Zantac -) 150 mg PO DAILY [facility] Last Admin: 04/01/17 11:44 Dose: 150 mg Sevelamer Carbonate (Renvela -) 800 mg PO TIDCM [facility] Last Admin: 04/01/17 11:44 Dose: 800 mg - Objective Vital Signs: Vital Signs Temperature 98.4 F 04/01/17 06:00 Pulse Rate 55 L 04/01/17 10:55 Respiratory Rate 18 04/01/17 10:55 Blood Pressure 184/76 04/01/17 10:55 O2 Sat by Pulse Oximetry (%) 97 04/01/17 06:40 Constitutional: Yes: No Distress, Calm Cardiovascular: Yes: Regular Rate and Rhythm Respiratory: Yes: Regular, CTA Bilaterally Gastrointestinal: Yes: Normal Bowel Sounds, Soft Musculoskeletal: Yes: Other Extremities: Yes: Other Neurological: Yes: Alert, Oriented Psychiatric: Yes: Alert, Oriented Labs: CBC, BMP 08/26/17 07:45 04/01/17 11:00 INR, PTT INR 1.09 (0.82-1.09) 03/31/17 07:00 Assessment/Plan Problem List - Problems (1) Avascular necrosis Code(s): M87.00 - IDIOPATHIC ASEPTIC NECROSIS OF UNSPECIFIED BONE (2) Diabetes Code(s): E11.9 - TYPE 2 DIABETES MELLITUS WITHOUT COMPLICATIONS (3) ESRD (end stage renal disease) Code(s): N18.6 - END STAGE RENAL DISEASE (4) Hyperlipidemia Code(s): E78.5 - HYPERLIPIDEMIA, UNSPECIFIED (5) Hypertension Code(s): I10 - ESSENTIAL (PRIMARY) HYPERTENSION (6) GERD (gastroesophageal reflux disease) Code(s): K21.9 - GASTRO-ESOPHAGEAL REFLUX DISEASE WITHOUT ESOPHAGITIS r/o discitis of the spine plan await for repeat mri'once we have repeat procedure then we will decide further plan
[2017-04-01] MEDS: oxyCODONE HCL 5 MG TABLET PO PRN (13:13)
[2017-04-01] MEDS: ATORVASTATIN CA 10 MG TABLET (FP) PO SCH (21:45)
[2017-04-02] MEDS: HEPARIN NA (PORCINE) 5,000 UNITS/ML 1ML VIAL SQ SCH ×3 (02:06→17:22)
[2017-04-02] MEDS: SEVELAMER CARBONATE 800 MG TAB (FP) PO SCH ×3 (08:07→17:22)
[2017-04-02 08:13] LABS: BASOPHIL 1.4 % (0-2.0); EOSINOPHIL 4.8 % (0-4.5); MCH 29.3 pg (25.7-33.7); MCHC 32.8 g/dl (32.0-36.0); MEAN CELL VOLUME 89.2 fl (80-96); MEAN PLT VOLUME 8.4 fl (7.5-11.1); NEUTROPHILS 50.6 % (42.8-82.8); PLATELET COUNT 134 K/MM3 (134-434); RDW 16.9 % (11.6-15.6); WHITE BLOOD COUNT 4.6 K/mm3 (4.0-10.0)
[2017-04-02 08:43] LABS: ANION GAP 10 (8-16); CO2 29 mmol/L (21-32); CREATININE 4.1 mg/dL (0.55-1.02); GLUCOSE,RANDOM 75 mg/dL (74-106)
[2017-04-02] MEDS: NIFEdipine E.R. 30 MG TABLET (FP) PO SCH (09:21)
[2017-04-02] MEDS: RANITIDINE HCL 150 MG TABLET (FP) PO SCH (09:21)
[2017-04-02] MEDS: POLYETHYLENE GLYCOL 3350 119 GM BTL PO SCH (09:21)
[2017-04-02] MEDS: LOSARTAN POTASSIUM 50 MG TABLET (FP) PO SCH (09:21)
[2017-04-02] MEDS: DOCUSATE SODIUM 100 MG CAPSULE (FP) PO SCH ×2 (09:21→21:05)
[2017-04-02] MEDS: LABETALOL HCL 100 MG TABLET (FP) PO SCH ×2 (09:21→21:05)
--- NOTE | 2017-04-02 10:48 | PN ---
Physical Exam: SUBJECTIVE: Patient seen and examined. Pain is controlled with oxycodone. No BM since admission. OBJECTIVE: HTN up to 207 systolic today. Vital Signs Period Temp Pulse Resp BP Sys/Jha Pulse Ox Last 24 Hr 97.7 F-98.4 F 55-65 18-18 160-192/75-85 97 GENERAL: The patient is awake, alert, and fully oriented, in no acute distress. EYES: PERRL, extraocular movements intact, sclera anicteric, conjunctiva clear. No ptosis. ENT: Ears normal, nares patent, oropharynx clear without exudates, moist mucous membranes. NECK: Trachea midline, full range of motion, supple. LUNGS: Breath sounds equal, clear to auscultation bilaterally, no wheezes, no crackles, no accessory muscle use. HEART: Regular rate and rhythm, S1, S2, soft systolic murmur, no rub or gallop. ABDOMEN: Soft, nontender, nondistended, normoactive bowel sounds, no guarding, no rebound, no hepatosplenomegaly, no masses. EXTREMITIES: 2+ pulses, warm, well-perfused, no edema. NEUROLOGICAL: Cranial nerves II through XII grossly intact. Normal speech, gait not observed. PSYCH: Normal mood, normal affect. SKIN: Warm, dry, normal turgor, no rashes or lesions noted. Laboratory Results - last 24 hr 04/01/17 04/02/17 04/02/17 11:00 07:40 07:40 WBC 4.6 RBC 3.51 L Hgb 10.3 L Hct 31.3 L MCV 89.2 MCH 29.3 MCHC 32.8 RDW 16.9 H Plt Count 134 MPV 8.4 Neutrophils % 50.6 Lymphocytes % 32.4 Monocytes % 10.8 H Eosinophils % 4.8 H Basophils % 1.4 Sodium 132 L Potassium 4.2 Chloride 93 L Carbon Dioxide 29 Anion Gap 10 BUN 9 D 23 H D Creatinine 1.9 H D 4.1 H D Random Glucose 75 D Calcium 9.0 Active Medications Generic Name Dose Route Start Last Admin Trade Name Freq PRN Reason Stop Dose Admin Acetaminophen 650 mg 03/29/17 16:06 03/31/17 12:35 Tylenol - PO 650 mg Q4H PRN Administration FEVER OR PAIN Atorvastatin Calcium 10 mg 03/29/17 22:00 04/01/17 21:45 Lipitor - PO 10 mg HS NOE Administration Docusate Sodium 100 mg 03/29/17 22:00 04/02/17 09:21 Colace - PO 100 mg BID NOE Administration Heparin Sodium (Porcine) 5,000 unit 03/29/17 18:00 04/02/17 09:22 Heparin - SQ 5,000 unit Q8H-IV NOE Administration Labetalol HCl 300 mg 03/29/17 22:00 04/02/17 09:21 Normodyne - PO 300 mg BID NOE Administration Losartan Potassium 100 mg 03/30/17 10:00 04/02/17 09:21 Cozaar - PO 100 mg DAILY NOE Administration Nifedipine 30 mg 04/01/17 11:30 04/02/17 09:21 Procardia Xl - PO 30 mg DAILY NOE Administration Oxycodone HCl 5 mg 03/29/17 16:06 04/01/17 13:13 Roxicodone - PO 5 mg Q4H PRN Administration PAIN Polyethylene Glycol 17 gm 03/30/17 10:00 04/02/17 09:21 Miralax (For Daily Use) - PO 17 gm DAILY NOE Administration Ranitidine HCl 150 mg 03/30/17 10:00 04/02/17 09:21 Zantac - PO 150 mg DAILY NOE Administration Sevelamer Carbonate 800 mg 03/29/17 17:30 04/02/17 08:07 Renvela - PO 800 mg TIDCM NOE Administration ASSESSMENT/PLAN: 76 year old female with possible discitis. Assessment/Plan (1) Lumbrosacral discitis with destruction Assessment/Plan: -Observe off abx per ID -Plan for biopsy tomorrow (2) Rheumatoid arthritis of the R hip -No septic arthritis per orthopedics -Plan per elective THR (3) Diabetes Assessment/Plan: -Diet-controlled Code(s): E11.9 - TYPE 2 DIABETES MELLITUS WITHOUT COMPLICATIONS (4) ESRD (end stage renal disease) Assessment/Plan: -HD yesterday -Nephrology following Code(s): N18.6 - END STAGE RENAL DISEASE (5) Hyperlipidemia Assessment/Plan: -Continue Lipitor Code(s): E78.5 - HYPERLIPIDEMIA, UNSPECIFIED (6) Hypertension Assessment/Plan: -Persistently above goal -Continue Losartan, and Labetalol -Increase Nifedipine ER to 60mg daily Code(s): I10 - ESSENTIAL (PRIMARY) HYPERTENSION (7) GERD (gastroesophageal reflux disease) Assessment/Plan: -Continue ranitidine Code(s): K21.9 - GASTRO-ESOPHAGEAL REFLUX DISEASE WITHOUT ESOPHAGITIS Ppx: Hold [facility] for biopsy. Dispo: Observation status. Visit type - Emergency Visit Emergency Visit: Yes ED Registration Date: 03/30/17 Care time: The patient presented to the Emergency Department on the above date and was hospitalized for further evaluation of their emergent condition. - New Patient This patient is new to me today: No - Critical Care Critical Care patient: No
[2017-04-02] MEDS ORDERED: NIFEdipine E.R. 30 MG TABLET (FP) PO ONE (12:48)
--- NOTE | 2017-04-02 12:58 | PN ---
Progress Note, Physician History of Present Illness: patient stable no new issues - Current Medication List Current Medications: Active Medications Acetaminophen (Tylenol -) 650 mg PO Q4H PRN PRN Reason: FEVER OR PAIN Last Admin: 03/31/17 12:35 Dose: 650 mg Atorvastatin Calcium (Lipitor -) 10 mg PO HS [facility] Last Admin: 04/01/17 21:45 Dose: 10 mg Docusate Sodium (Colace -) 100 mg PO BID [facility] Last Admin: 04/02/17 09:21 Dose: 100 mg Heparin Sodium (Porcine) (Heparin -) 5,000 unit SQ Q8H-IV [facility] Last Admin: 04/02/17 09:22 Dose: 5,000 unit Labetalol HCl (Normodyne -) 300 mg PO BID [facility] Last Admin: 04/02/17 09:21 Dose: 300 mg Losartan Potassium (Cozaar -) 100 mg PO DAILY [facility] Last Admin: 04/02/17 09:21 Dose: 100 mg Nifedipine (Procardia Xl -) 60 mg PO DAILY [facility] Nifedipine (Procardia Xl -) 30 mg PO ONCE ONE Stop: 04/02/17 12:49 Oxycodone HCl (Roxicodone -) 5 mg PO Q4H PRN PRN Reason: PAIN Last Admin: 04/01/17 13:13 Dose: 5 mg Polyethylene Glycol (Miralax (For Daily Use) -) 17 gm PO DAILY [facility] Last Admin: 04/02/17 09:21 Dose: 17 gm Ranitidine HCl (Zantac -) 150 mg PO DAILY [facility] Last Admin: 04/02/17 09:21 Dose: 150 mg Senna (Senna -) 1 tab PO [facility] Sevelamer Carbonate (Renvela -) 800 mg PO TIDCM [facility] Last Admin: 04/02/17 11:56 Dose: 800 mg - Objective Vital Signs: Vital Signs Temperature 98.1 F 04/02/17 10:00 Pulse Rate 66 04/02/17 10:00 Respiratory Rate 18 04/02/17 10:00 Blood Pressure 207/87 04/02/17 10:00 O2 Sat by Pulse Oximetry (%) 97 04/01/17 15:00 Constitutional: Yes: No Distress, Calm Cardiovascular: Yes: Regular Rate and Rhythm Respiratory: Yes: Regular, CTA Bilaterally Gastrointestinal: Yes: Normal Bowel Sounds, Soft Musculoskeletal: Yes: WNL Extremities: Yes: Other Neurological: Yes: Alert, Oriented Psychiatric: Yes: Alert, Oriented Labs: CBC, BMP 04/02/17 07:40 04/02/17 07:40 INR, PTT INR 1.09 (0.82-1.09) 03/31/17 07:00 Assessment/Plan Problem List - Problems (1) Avascular necrosis Code(s): M87.00 - IDIOPATHIC ASEPTIC NECROSIS OF UNSPECIFIED BONE (2) Diabetes Code(s): E11.9 - TYPE 2 DIABETES MELLITUS WITHOUT COMPLICATIONS (3) ESRD (end stage renal disease) Code(s): N18.6 - END STAGE RENAL DISEASE (4) Hyperlipidemia Code(s): E78.5 - HYPERLIPIDEMIA, UNSPECIFIED (5) Hypertension Code(s): I10 - ESSENTIAL (PRIMARY) HYPERTENSION (6) GERD (gastroesophageal reflux disease) Code(s): K21.9 - GASTRO-ESOPHAGEAL REFLUX DISEASE WITHOUT ESOPHAGITIS r/o discitis of the spine plan repeat mri awaited final plan after that family in room rest as per primary team
[2017-04-02] MEDS: ATORVASTATIN CA 10 MG TABLET (FP) PO SCH (21:05)
[2017-04-02] MEDS: SENNOSIDES 8.6MG TABLET (FP) PO SCH (21:05)
[2017-04-03 07:20] LABS: BASOPHIL 0.7 % (0-2.0); EOSINOPHIL 4.3 % (0-4.5); MCH 29.7 pg (25.7-33.7); MCHC 33.5 g/dl (32.0-36.0); MEAN CELL VOLUME 88.8 fl (80-96); MEAN PLT VOLUME 8.6 fl (7.5-11.1); NEUTROPHILS 50.7 % (42.8-82.8); PLATELET COUNT 141 K/MM3 (134-434); RDW 16.3 % (11.6-15.6); WHITE BLOOD COUNT 4.9 K/mm3 (4.0-10.0)
[2017-04-03] MEDS: SEVELAMER CARBONATE 800 MG TAB (FP) PO SCH ×3 (07:52→17:05)
[2017-04-03 07:58] LABS: CALCIUM 9.4 mg/dL (8.5-10.1)
[2017-04-03 08:01] LABS: ANION GAP 15 (8-16); CO2 28 mmol/L (21-32); CREATININE 5.2 mg/dL (0.55-1.02); GLUCOSE,RANDOM 73 mg/dL (74-106)
[2017-04-03 08:06] LABS: INR 1.03 (0.82-1.09); PROTHROMBIN TIME (PATIENT) 11.3 SEC (9.98-11.88)
[2017-04-03] MEDS ORDERED: PT OWN MED DRAWER 7, Y5N ONE (09:24)
[2017-04-03] MEDS: LABETALOL HCL 100 MG TABLET (FP) PO SCH ×2 (09:25→21:25)
[2017-04-03] MEDS: DOCUSATE SODIUM 100 MG CAPSULE (FP) PO SCH ×2 (09:25→21:25)
[2017-04-03] MEDS: LOSARTAN POTASSIUM 50 MG TABLET (FP) PO SCH (09:25)
[2017-04-03] MEDS: RANITIDINE HCL 150 MG TABLET (FP) PO SCH (09:25)
[2017-04-03] MEDS: POLYETHYLENE GLYCOL 3350 119 GM BTL PO SCH (09:26)
[2017-04-03] MEDS ORDERED: NIFEdipine E.R 60 MG TABLET (UD) PO SCH (10:00)
[2017-04-03] MEDS: ACETAMINOPHEN 325 MG TABLET (FP) PO PRN (11:24)
[2017-04-03] MEDS: oxyCODONE HCL 5 MG TABLET PO PRN (11:25)
--- NOTE | 2017-04-03 11:52 | PN ---
Progress Note (short form) - Note Progress Note: Renal Follow up for ESRD on HD Pt seen and examined at the bedside reports some back and hip discomfort no fevers, CP, SOB, N/V/D Pt denies drinking a lot of water last dialysis was Monday Vital Signs Temperature 99.3 F 04/03/17 07:49 Pulse Rate 66 04/03/17 07:49 Respiratory Rate 18 04/03/17 07:49 Blood Pressure 163/83 04/03/17 07:49 O2 Sat by Pulse Oximetry (%) 98 04/03/17 08:43 Intake & Output 03/31/17 04/01/17 04/02/17 04/03/17 23:59 23:59 23:59 23:59 Intake Total 1150 850 500 100 Balance 1150 850 500 100 Gen: NAD CVS: RRR Lungs: CTA Abd: soft NT Ext: No edema CBC, BMP 04/03/17 06:00 04/03/17 05:40 Current Medications Acetaminophen (Tylenol -) 650 mg PO Q4H PRN PRN Reason: FEVER OR PAIN Last Admin: 04/03/17 11:24 Dose: 650 mg Atorvastatin Calcium (Lipitor -) 10 mg PO HS [facility] Last Admin: 04/02/17 21:05 Dose: 10 mg Docusate Sodium (Colace -) 100 mg PO BID [facility] Last Admin: 04/03/17 09:25 Dose: 100 mg Heparin Sodium (Porcine) (Heparin -) 5,000 unit SQ Q8H-IV [facility] Last Admin: 04/02/17 17:22 Dose: 5,000 unit Labetalol HCl (Normodyne -) 300 mg PO BID [facility] Last Admin: 04/03/17 09:25 Dose: 300 mg Losartan Potassium (Cozaar -) 100 mg PO DAILY [facility] Last Admin: 04/03/17 09:25 Dose: 100 mg Nifedipine (Procardia Xl -) 60 mg PO DAILY [facility] Last Admin: 04/03/17 09:26 Dose: 60 mg Oxycodone HCl (Roxicodone -) 5 mg PO Q4H PRN PRN Reason: PAIN Last Admin: 04/03/17 11:25 Dose: 5 mg Polyethylene Glycol (Miralax (For Daily Use) -) 17 gm PO DAILY [facility] Last Admin: 04/03/17 09:26 Dose: 17 gm Ranitidine HCl (Zantac -) 150 mg PO DAILY [facility] Last Admin: 04/03/17 09:25 Dose: 150 mg Senna (Senna -) 1 tab PO HS [facility] Last Admin: 04/02/17 21:05 Dose: 1 tab Sevelamer Carbonate (Renvela -) 800 mg PO TIDCM [facility] Last Admin: 04/03/17 11:22 Dose: 800 mg A/P 76 year old woman with PMhx of ESRD on HD (TTS at [facility]) x 5 years, Hypertension, Ovarian Ca who presented with hip pain and outpatient imaging studies consistent with joint effusion concerning for septic joint. #ESRD on HD no acute indication for dialysis today next treatment is for tomorrow dose all meds for intermittent HD #Degenerative Hip joint/Lumbar Osteomylitis for elective hip replacement as outpatient no evidence of septic joint as per Ortho MRI findings noted Pending Biopsy #Hypertenion Continue Labetalol, Losartan BP remains above gaol increased Nifedpine XL to 60mg BID #Renal Osteodystrophy Continue Renvela with meals Thanks Asa Smith DO Problem List - Problems (1) Diabetes Code(s): E11.9 - TYPE 2 DIABETES MELLITUS WITHOUT COMPLICATIONS (2) ESRD (end stage renal disease) Code(s): N18.6 - END STAGE RENAL DISEASE (3) Hypertension Code(s): I10 - ESSENTIAL (PRIMARY) HYPERTENSION
--- NOTE | 2017-04-03 12:15 | PN ---
Progress Note, Physician History of Present Illness: patient stable no new issues - Current Medication List Current Medications: Active Medications Acetaminophen (Tylenol -) 650 mg PO Q4H PRN PRN Reason: FEVER OR PAIN Last Admin: 04/03/17 11:24 Dose: 650 mg Atorvastatin Calcium (Lipitor -) 10 mg PO HS [facility] Last Admin: 04/02/17 21:05 Dose: 10 mg Docusate Sodium (Colace -) 100 mg PO BID [facility] Last Admin: 04/03/17 09:25 Dose: 100 mg Heparin Sodium (Porcine) (Heparin -) 5,000 unit SQ Q8H-IV [facility] Last Admin: 04/02/17 17:22 Dose: 5,000 unit Labetalol HCl (Normodyne -) 300 mg PO BID [facility] Last Admin: 04/03/17 09:25 Dose: 300 mg Losartan Potassium (Cozaar -) 100 mg PO DAILY [facility] Last Admin: 04/03/17 09:25 Dose: 100 mg Nifedipine (Procardia Xl -) 60 mg PO BID [facility] Oxycodone HCl (Roxicodone -) 5 mg PO Q4H PRN PRN Reason: PAIN Last Admin: 04/03/17 11:25 Dose: 5 mg Polyethylene Glycol (Miralax (For Daily Use) -) 17 gm PO DAILY [facility] Last Admin: 04/03/17 09:26 Dose: 17 gm Ranitidine HCl (Zantac -) 150 mg PO DAILY [facility] Last Admin: 04/03/17 09:25 Dose: 150 mg Senna (Senna -) 1 tab PO HS [facility] Last Admin: 04/02/17 21:05 Dose: 1 tab Sevelamer Carbonate (Renvela -) 800 mg PO TIDCM [facility] Last Admin: 04/03/17 11:22 Dose: 800 mg - Objective Vital Signs: Vital Signs Temperature 99.3 F 04/03/17 07:49 Pulse Rate 66 04/03/17 07:49 Respiratory Rate 18 04/03/17 07:49 Blood Pressure 163/83 04/03/17 07:49 O2 Sat by Pulse Oximetry (%) 98 04/03/17 08:43 Constitutional: Yes: No Distress, Calm Eyes: Yes: Conjunctiva Clear Cardiovascular: Yes: Regular Rate and Rhythm Respiratory: Yes: Regular, CTA Bilaterally Gastrointestinal: Yes: Normal Bowel Sounds, Soft Musculoskeletal: Yes: WNL Extremities: Yes: WNL Neurological: Yes: Alert, Oriented Psychiatric: Yes: Alert, Oriented Labs: CBC, BMP 04/03/17 06:00 04/03/17 05:40 INR, PTT INR 1.03 (0.82-1.09) 04/03/17 06:00 - ....Imaging MRI: Report Reviewed, Image Reviewed Assessment/Plan Problem List - Problems (1) Avascular necrosis Code(s): M87.00 - IDIOPATHIC ASEPTIC NECROSIS OF UNSPECIFIED BONE (2) Diabetes Code(s): E11.9 - TYPE 2 DIABETES MELLITUS WITHOUT COMPLICATIONS (3) ESRD (end stage renal disease) Code(s): N18.6 - END STAGE RENAL DISEASE (4) Hyperlipidemia Code(s): E78.5 - HYPERLIPIDEMIA, UNSPECIFIED (5) Hypertension Code(s): I10 - ESSENTIAL (PRIMARY) HYPERTENSION (6) GERD (gastroesophageal reflux disease) Code(s): K21.9 - GASTRO-ESOPHAGEAL REFLUX DISEASE WITHOUT ESOPHAGITIS r/o discitis of the spine repeat mri note noted patient as suspected has mri/or discitits patient needs a biopsy rest as per primary
--- NOTE | 2017-04-03 12:41 | PN ---
Progress Note, Physician Chief Complaint: Ms Crain has no new complaints. Still with pain in her R hip. No cp, sob, n/v. - Current Medication List Current Medications: Active Medications Acetaminophen (Tylenol -) 650 mg PO Q4H PRN PRN Reason: FEVER OR PAIN Last Admin: 04/03/17 11:24 Dose: 650 mg Atorvastatin Calcium (Lipitor -) 10 mg PO HS [facility] Last Admin: 04/02/17 21:05 Dose: 10 mg Docusate Sodium (Colace -) 100 mg PO BID [facility] Last Admin: 04/03/17 09:25 Dose: 100 mg Heparin Sodium (Porcine) (Heparin -) 5,000 unit SQ Q8H-IV [facility] Last Admin: 04/02/17 17:22 Dose: 5,000 unit Labetalol HCl (Normodyne -) 300 mg PO BID [facility] Last Admin: 04/03/17 09:25 Dose: 300 mg Losartan Potassium (Cozaar -) 100 mg PO DAILY [facility] Last Admin: 04/03/17 09:25 Dose: 100 mg Nifedipine (Procardia Xl -) 60 mg PO BID [facility] Oxycodone HCl (Roxicodone -) 5 mg PO Q4H PRN PRN Reason: PAIN Last Admin: 04/03/17 11:25 Dose: 5 mg Polyethylene Glycol (Miralax (For Daily Use) -) 17 gm PO DAILY [facility] Last Admin: 04/03/17 09:26 Dose: 17 gm Ranitidine HCl (Zantac -) 150 mg PO DAILY [facility] Last Admin: 04/03/17 09:25 Dose: 150 mg Senna (Senna -) 1 tab PO HS [facility] Last Admin: 04/02/17 21:05 Dose: 1 tab Sevelamer Carbonate (Renvela -) 800 mg PO TIDCM [facility] Last Admin: 04/03/17 11:22 Dose: 800 mg - Objective Vital Signs: Vital Signs Temperature 37.4 C 04/03/17 07:49 Pulse Rate 66 04/03/17 07:49 Respiratory Rate 18 04/03/17 07:49 Blood Pressure 163/83 04/03/17 07:49 O2 Sat by Pulse Oximetry (%) 98 04/03/17 08:43 Constitutional: Yes: Well Nourished, No Distress, Calm Cardiovascular: Yes: Regular Rate and Rhythm. No: Gallop, Murmur, Rub Respiratory: Yes: Regular, CTA Bilaterally. No: Rales, Rhonchi, Wheezes Gastrointestinal: Yes: Normal Bowel Sounds, Soft. No: Distention, Tenderness Extremities: Yes: WNL Edema: No Labs: INR, PTT INR 1.03 (0.82-1.09) 04/03/17 06:00 Problem List - Problems (1) Discitis of lumbosacral region Code(s): M46.47 - DISCITIS, UNSPECIFIED, LUMBOSACRAL REGION (2) Rheumatoid arthritis involving both hips Code(s): M06.9 - RHEUMATOID ARTHRITIS, UNSPECIFIED (3) Diabetes Code(s): E11.9 - TYPE 2 DIABETES MELLITUS WITHOUT COMPLICATIONS (4) ESRD (end stage renal disease) Code(s): N18.6 - END STAGE RENAL DISEASE (5) Hyperlipidemia Code(s): E78.5 - HYPERLIPIDEMIA, UNSPECIFIED (6) Hypertension Code(s): I10 - ESSENTIAL (PRIMARY) HYPERTENSION (7) GERD (gastroesophageal reflux disease) Code(s): K21.9 - GASTRO-ESOPHAGEAL REFLUX DISEASE WITHOUT ESOPHAGITIS Assessment/Plan (1) Lumbrosacral discitis with destruction Assessment/Plan: -planning for biopsy today -evaluate for possible infectious process (2) Rheumatoid arthritis of the R hip -appreciate ortho assistance -outpatient elective hip replacement -continue PT while here (3) Diabetes Assessment/Plan: -diet controlled -diabetic diet Code(s): E11.9 - TYPE 2 DIABETES MELLITUS WITHOUT COMPLICATIONS (4) ESRD (end stage renal disease) Assessment/Plan: -nephrology following -HD TRS Code(s): N18.6 - END STAGE RENAL DISEASE (5) Hyperlipidemia Assessment/Plan: -continue lipitor Code(s): E78.5 - HYPERLIPIDEMIA, UNSPECIFIED (6) Hypertension Assessment/Plan: -continue losartan and labetalol -amlodipine changed to nifedipine -monitor for improvement Code(s): I10 - ESSENTIAL (PRIMARY) HYPERTENSION (7) GERD (gastroesophageal reflux disease) Assessment/Plan: -continue ranitidine Code(s): K21.9 - GASTRO-ESOPHAGEAL REFLUX DISEASE WITHOUT ESOPHAGITIS
[2017-04-03] MEDS: ATORVASTATIN CA 10 MG TABLET (FP) PO SCH (21:25)
[2017-04-03] MEDS: NIFEdipine E.R. 30 MG TABLET (FP) PO SCH (21:25)
[2017-04-03] MEDS: SENNOSIDES 8.6MG TABLET (FP) PO SCH (21:25)
[2017-04-04] MEDS ORDERED: LABETALOL HCL 100 MG TABLET (FP) PO ONE (01:56)
--- NOTE | 2017-04-04 02:13 | HOSP ---
Physical Examination Vital Signs: Vital Signs Temperature 98.2 F 04/03/17 22:00 Pulse Rate 70 04/03/17 22:00 Respiratory Rate 20 04/04/17 00:00 Blood Pressure 176/85 04/03/17 22:00 O2 Sat by Pulse Oximetry (%) 98 04/04/17 00:00 Hospitalist Encounter Assessment: Paged by RN. Patient found to have BP 200's/100's. Repeat BP was 200's/95. Patient asymptomatic. Patient given 1x dose of labetelol 100 mg PO Visit type - Emergency Visit Emergency Visit: No - New Patient This patient is new to me today: Yes Date on this admission: 04/04/17 - Critical Care Critical Care patient: No
[2017-04-04] MEDS: SEVELAMER CARBONATE 800 MG TAB (FP) PO SCH ×3 (09:00→17:50)
[2017-04-04] MEDS: NIFEdipine E.R. 30 MG TABLET (FP) PO SCH ×2 (09:54→21:28)
[2017-04-04] MEDS: LOSARTAN POTASSIUM 50 MG TABLET (FP) PO SCH (09:54)
[2017-04-04] MEDS: DOCUSATE SODIUM 100 MG CAPSULE (FP) PO SCH ×2 (11:42→21:26)
[2017-04-04] MEDS: RANITIDINE HCL 150 MG TABLET (FP) PO SCH (11:42)
[2017-04-04] MEDS: SPIRONOLACTONE 25 MG TABLET (FP) PO SCH (11:43)
[2017-04-04] MEDS: LABETALOL HCL 100 MG TABLET (FP) PO SCH ×2 (11:43→21:26)
[2017-04-04] MEDS: POLYETHYLENE GLYCOL 3350 119 GM BTL PO SCH (11:43)
--- NOTE | 2017-04-04 12:41 | PN ---
Progress Note (short form) - Note Progress Note: Renal Follow up for ESRD on HD Pt seen and examined at the bedside went down to IR for bone biopsy but was not able to have the procedure done because of very elevated BPs Pt without any acute complaints at this time was given BP dose of Nifedipine last night Vital Signs Temperature 98.5 F 04/04/17 09:50 Pulse Rate 67 04/04/17 11:40 Respiratory Rate 18 04/04/17 11:40 Blood Pressure 193/94 04/04/17 11:40 O2 Sat by Pulse Oximetry (%) 100 04/04/17 10:54 Intake & Output 04/01/17 04/02/17 04/03/17 04/04/17 23:59 23:59 23:59 23:59 Intake Total 850 500 550 0 Balance 850 500 550 0 Gen: NAD CVS: RRR Lungs: CTA Abd: soft NT Ext: No edema CBC, BMP 04/03/17 06:00 04/03/17 05:40 Laboratory Tests 04/03/17 05:40 Calcium 9.4 Current Medications Acetaminophen (Tylenol -) 650 mg PO Q4H PRN PRN Reason: FEVER OR PAIN Last Admin: 04/03/17 11:24 Dose: 650 mg Atorvastatin Calcium (Lipitor -) 10 mg PO HS [facility] Last Admin: 04/03/17 21:25 Dose: 10 mg Docusate Sodium (Colace -) 100 mg PO BID [facility] Last Admin: 04/04/17 11:42 Dose: 100 mg Heparin Sodium (Porcine) (Heparin -) 5,000 unit SQ Q8H-IV [facility] Last Admin: 04/02/17 17:22 Dose: 5,000 unit Labetalol HCl (Normodyne -) 300 mg PO BID [facility] Last Admin: 04/04/17 11:43 Dose: 300 mg Losartan Potassium (Cozaar -) 100 mg PO DAILY [facility] Last Admin: 04/04/17 09:54 Dose: 100 mg Nifedipine (Procardia Xl -) 60 mg PO BID [facility] Last Admin: 04/04/17 09:54 Dose: 60 mg Oxycodone HCl (Roxicodone -) 5 mg PO Q4H PRN PRN Reason: PAIN Last Admin: 04/03/17 11:25 Dose: 5 mg Polyethylene Glycol (Miralax (For Daily Use) -) 17 gm PO DAILY [facility] Last Admin: 04/04/17 11:43 Dose: Not Given Ranitidine HCl (Zantac -) 150 mg PO DAILY [facility] Last Admin: 04/04/17 11:42 Dose: 150 mg Senna (Senna -) 1 tab PO HS [facility] Last Admin: 04/03/17 21:25 Dose: 1 tab Sevelamer Carbonate (Renvela -) 800 mg PO TIDCM [facility] Last Admin: 04/04/17 11:42 Dose: 800 mg Spironolactone (Aldactone -) 25 mg PO DAILY [facility] Last Admin: 04/04/17 11:43 Dose: 25 mg A/P 76 year old woman with PMhx of ESRD on HD (TTS at [facility]) x 5 years, Hypertension, Ovarian Ca who presented with hip pain and outpatient imaging studies consistent with joint effusion concerning for septic joint. #ESRD on HD for dialysis today with gaol UF of 2.5-3L as tolerated #Degenerative Hip joint/Lumbar Osteomylitis IR biopsy deferred to tomorrow because of uncontrolled hypertenson #Hypertenion BP remains above goal Nifedipne increased to 60mg BID (max dose), on Losartan 100mg, Labetalol Cannot titrate BB because of HR Will add aldactone 25mg This am goal BP < 140/90 will UF as tolerated with HD as well if BP remains high prior to procedure tomorrow can given PRN Hydralazine #Renal Osteodystrophy Continue Renvela with meals Thanks Asa Smith DO Problem List - Problems (1) Diabetes Code(s): E11.9 - TYPE 2 DIABETES MELLITUS WITHOUT COMPLICATIONS (2) ESRD (end stage renal disease) Code(s): N18.6 - END STAGE RENAL DISEASE (3) Hypertension Code(s): I10 - ESSENTIAL (PRIMARY) HYPERTENSION
--- NOTE | 2017-04-04 13:10 | PN ---
Progress Note, Physician History of Present Illness: stable for biopsy today - Current Medication List Current Medications: Active Medications Acetaminophen (Tylenol -) 650 mg PO Q4H PRN PRN Reason: FEVER OR PAIN Last Admin: 04/03/17 11:24 Dose: 650 mg Atorvastatin Calcium (Lipitor -) 10 mg PO HS [facility] Last Admin: 04/03/17 21:25 Dose: 10 mg Docusate Sodium (Colace -) 100 mg PO BID [facility] Last Admin: 04/04/17 11:42 Dose: 100 mg Heparin Sodium (Porcine) (Heparin -) 5,000 unit SQ Q8H-IV [facility] Last Admin: 04/02/17 17:22 Dose: 5,000 unit Labetalol HCl (Normodyne -) 300 mg PO BID [facility] Last Admin: 04/04/17 11:43 Dose: 300 mg Losartan Potassium (Cozaar -) 100 mg PO DAILY [facility] Last Admin: 04/04/17 09:54 Dose: 100 mg Nifedipine (Procardia Xl -) 60 mg PO BID [facility] Last Admin: 04/04/17 09:54 Dose: 60 mg Oxycodone HCl (Roxicodone -) 5 mg PO Q4H PRN PRN Reason: PAIN Last Admin: 04/03/17 11:25 Dose: 5 mg Polyethylene Glycol (Miralax (For Daily Use) -) 17 gm PO DAILY [facility] Last Admin: 04/04/17 11:43 Dose: Not Given Ranitidine HCl (Zantac -) 150 mg PO DAILY [facility] Last Admin: 04/04/17 11:42 Dose: 150 mg Senna (Senna -) 1 tab PO HS [facility] Last Admin: 04/03/17 21:25 Dose: 1 tab Sevelamer Carbonate (Renvela -) 800 mg PO TIDCM [facility] Last Admin: 04/04/17 11:42 Dose: 800 mg Spironolactone (Aldactone -) 25 mg PO DAILY [facility] Last Admin: 04/04/17 11:43 Dose: 25 mg - Objective Vital Signs: Vital Signs Temperature 98.5 F 04/04/17 09:50 Pulse Rate 66 04/04/17 12:56 Respiratory Rate 18 04/04/17 12:56 Blood Pressure 157/71 04/04/17 12:56 O2 Sat by Pulse Oximetry (%) 100 04/04/17 10:54 Constitutional: Yes: No Distress, Calm Cardiovascular: Yes: Regular Rate and Rhythm Respiratory: Yes: Regular, CTA Bilaterally Gastrointestinal: Yes: Normal Bowel Sounds, Soft Musculoskeletal: Yes: WNL Extremities: Yes: WNL Neurological: Yes: Alert, Oriented Psychiatric: Yes: Alert, Oriented Labs: INR, PTT INR 1.03 (0.82-1.09) 04/03/17 06:00 - ....Imaging MRI: Report Reviewed, Image Reviewed Assessment/Plan Problem List - Problems (1) Avascular necrosis Code(s): M87.00 - IDIOPATHIC ASEPTIC NECROSIS OF UNSPECIFIED BONE (2) Diabetes Code(s): E11.9 - TYPE 2 DIABETES MELLITUS WITHOUT COMPLICATIONS (3) ESRD (end stage renal disease) Code(s): N18.6 - END STAGE RENAL DISEASE (4) Hyperlipidemia Code(s): E78.5 - HYPERLIPIDEMIA, UNSPECIFIED (5) Hypertension Code(s): I10 - ESSENTIAL (PRIMARY) HYPERTENSION (6) GERD (gastroesophageal reflux disease) Code(s): K21.9 - GASTRO-ESOPHAGEAL REFLUX DISEASE WITHOUT ESOPHAGITIS discitis of the spine r/o osteo plan we will start patient on vanco post biopsy once we have the biopsy culture and sensitivity then we will decide rest as per primary
[2017-04-04 13:55] LABS: MCH 29.2 pg (25.7-33.7); MCHC 32.7 g/dl (32.0-36.0); MEAN CELL VOLUME 89.4 fl (80-96); MEAN PLT VOLUME 8.5 fl (7.5-11.1); PLATELET COUNT 137 K/MM3 (134-434); RDW 16.9 % (11.6-15.6)
[2017-04-04 14:35] LABS: ANION GAP 11 (8-16); CO2 29 mmol/L (21-32); CREATININE 6.5 mg/dL (0.55-1.02); GLUCOSE,RANDOM 99 mg/dL (74-106); MAGNESIUM 2.4 mg/dL (1.8-2.4)
--- NOTE | 2017-04-04 17:16 | PN ---
Progress Note, Physician Chief Complaint: Ms Crain has no new complaints. No cp, sob, n/v. Hip pain currently controlled - Current Medication List Current Medications: Active Medications Acetaminophen (Tylenol -) 650 mg PO Q4H PRN PRN Reason: FEVER OR PAIN Last Admin: 04/03/17 11:24 Dose: 650 mg Atorvastatin Calcium (Lipitor -) 10 mg PO HS [facility] Last Admin: 04/03/17 21:25 Dose: 10 mg Docusate Sodium (Colace -) 100 mg PO BID [facility] Last Admin: 04/04/17 11:42 Dose: 100 mg Heparin Sodium (Porcine) (Heparin -) 5,000 unit SQ Q8H-IV [facility] Last Admin: 04/02/17 17:22 Dose: 5,000 unit Labetalol HCl (Normodyne -) 300 mg PO BID [facility] Last Admin: 04/04/17 11:43 Dose: 300 mg Losartan Potassium (Cozaar -) 100 mg PO DAILY [facility] Last Admin: 04/04/17 09:54 Dose: 100 mg Nifedipine (Procardia Xl -) 60 mg PO BID [facility] Last Admin: 04/04/17 09:54 Dose: 60 mg Oxycodone HCl (Roxicodone -) 5 mg PO Q4H PRN PRN Reason: PAIN Last Admin: 04/03/17 11:25 Dose: 5 mg Polyethylene Glycol (Miralax (For Daily Use) -) 17 gm PO DAILY [facility] Last Admin: 04/04/17 11:43 Dose: Not Given Ranitidine HCl (Zantac -) 150 mg PO DAILY [facility] Last Admin: 04/04/17 11:42 Dose: 150 mg Senna (Senna -) 1 tab PO HS [facility] Last Admin: 04/03/17 21:25 Dose: 1 tab Sevelamer Carbonate (Renvela -) 800 mg PO TIDCM [facility] Last Admin: 04/04/17 11:42 Dose: 800 mg Spironolactone (Aldactone -) 25 mg PO DAILY [facility] Last Admin: 04/04/17 11:43 Dose: 25 mg - Objective Vital Signs: Vital Signs Temperature 36.8 C 04/04/17 13:00 Pulse Rate 66 04/04/17 16:40 Respiratory Rate 18 04/04/17 16:40 Blood Pressure 173/84 04/04/17 16:40 O2 Sat by Pulse Oximetry (%) 100 04/04/17 10:54 Constitutional: Yes: Well Nourished, No Distress, Calm Cardiovascular: Yes: Regular Rate and Rhythm. No: Gallop, Murmur, Rub Respiratory: Yes: Regular, CTA Bilaterally. No: Rales, Rhonchi, Wheezes Gastrointestinal: Yes: Normal Bowel Sounds, Soft. No: Distention, Tenderness Extremities: Yes: WNL Edema: No Labs: CBC, BMP 04/04/17 13:00 04/04/17 13:00 INR, PTT INR 1.03 (0.82-1.09) 04/03/17 06:00 Problem List - Problems (1) Discitis of lumbosacral region Code(s): M46.47 - DISCITIS, UNSPECIFIED, LUMBOSACRAL REGION (2) Rheumatoid arthritis involving both hips Code(s): M06.9 - RHEUMATOID ARTHRITIS, UNSPECIFIED (3) Diabetes Code(s): E11.9 - TYPE 2 DIABETES MELLITUS WITHOUT COMPLICATIONS (4) ESRD (end stage renal disease) Code(s): N18.6 - END STAGE RENAL DISEASE (5) Hyperlipidemia Code(s): E78.5 - HYPERLIPIDEMIA, UNSPECIFIED (6) Hypertension Code(s): I10 - ESSENTIAL (PRIMARY) HYPERTENSION (7) GERD (gastroesophageal reflux disease) Code(s): K21.9 - GASTRO-ESOPHAGEAL REFLUX DISEASE WITHOUT ESOPHAGITIS Assessment/Plan (1) Lumbrosacral discitis with destruction Assessment/Plan: -biopsy cancelled secondary to elevated blood pressure -attempt tomorrow (2) Rheumatoid arthritis of the R hip -appreciate ortho assistance -outpatient elective hip replacement -continue PT while here (3) Diabetes Assessment/Plan: -diet controlled -diabetic diet Code(s): E11.9 - TYPE 2 DIABETES MELLITUS WITHOUT COMPLICATIONS (4) ESRD (end stage renal disease) Assessment/Plan: -nephrology following -HD TRS Code(s): N18.6 - END STAGE RENAL DISEASE (5) Hyperlipidemia Assessment/Plan: -continue lipitor Code(s): E78.5 - HYPERLIPIDEMIA, UNSPECIFIED (6) Hypertension Assessment/Plan: -elevated -Dr Smith aware and aldactone added Code(s): I10 - ESSENTIAL (PRIMARY) HYPERTENSION (7) GERD (gastroesophageal reflux disease) Assessment/Plan: -continue ranitidine Code(s): K21.9 - GASTRO-ESOPHAGEAL REFLUX DISEASE WITHOUT ESOPHAGITIS
[2017-04-04] MEDS: ATORVASTATIN CA 10 MG TABLET (FP) PO SCH (21:26)
[2017-04-04] MEDS: SENNOSIDES 8.6MG TABLET (FP) PO SCH (21:26)
[2017-04-05] MEDS: HEPARIN NA (PORCINE) 5,000 UNITS/ML 1ML VIAL SQ SCH ×3 (02:13→09:18)
[2017-04-05 08:00] LABS: BASOPHIL 0.3 % (0-2.0); EOSINOPHIL 2.4 % (0-4.5); MCH 29.6 pg (25.7-33.7); MCHC 33.1 g/dl (32.0-36.0); MEAN CELL VOLUME 89.4 fl (80-96); MEAN PLT VOLUME 8.4 fl (7.5-11.1); NEUTROPHILS 68.7 % (42.8-82.8); PLATELET COUNT 136 K/MM3 (134-434); RDW 16.6 % (11.6-15.6); WHITE BLOOD COUNT 6.9 K/mm3 (4.0-10.0)
[2017-04-05 08:30] LABS: ANION GAP 11 (8-16); CALCIUM 9.2 mg/dL (8.5-10.1); CO2 32 mmol/L (21-32); GLUCOSE,RANDOM 72 mg/dL (74-106); MAGNESIUM 2.2 mg/dL (1.8-2.4)
[2017-04-05 08:31] LABS: CREATININE 4.6 mg/dL (0.55-1.02); PHOSPHOROUS 2.9 mg/dL (2.5-4.9)
[2017-04-05] MEDS: SEVELAMER CARBONATE 800 MG TAB (FP) PO SCH ×3 (09:06→17:12)
[2017-04-05] MEDS: SPIRONOLACTONE 25 MG TABLET (FP) PO SCH (09:07)
[2017-04-05] MEDS: DOCUSATE SODIUM 100 MG CAPSULE (FP) PO SCH ×2 (09:07→21:27)
[2017-04-05] MEDS: RANITIDINE HCL 150 MG TABLET (FP) PO SCH (09:07)
[2017-04-05] MEDS: LOSARTAN POTASSIUM 50 MG TABLET (FP) PO SCH (09:07)
[2017-04-05] MEDS: LABETALOL HCL 100 MG TABLET (FP) PO SCH ×2 (09:07→21:27)
[2017-04-05] MEDS: NIFEdipine E.R. 30 MG TABLET (FP) PO SCH ×2 (09:07→21:26)
[2017-04-05] MEDS: POLYETHYLENE GLYCOL 3350 119 GM BTL PO SCH (09:11)
--- NOTE | 2017-04-05 11:53 | EKG ---
Test Reason : Blood Pressure : / mmHG Vent. 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
--- NOTE | 2017-04-05 13:35 | PN ---
Progress Note, Physician Chief Complaint: Ms Crain has no new complaints. No cp, sob, n/v. Hip pain currently controlled - Current Medication List Current Medications: Active Medications Acetaminophen (Tylenol -) 650 mg PO Q4H PRN PRN Reason: FEVER OR PAIN Last Admin: 04/03/17 11:24 Dose: 650 mg Atorvastatin Calcium (Lipitor -) 10 mg PO HS [facility] Last Admin: 04/04/17 21:26 Dose: 10 mg Docusate Sodium (Colace -) 100 mg PO BID [facility] Last Admin: 04/05/17 09:07 Dose: 100 mg Heparin Sodium (Porcine) (Heparin -) 5,000 unit SQ Q8H-IV [facility] Last Admin: 04/05/17 09:18 Dose: Not Given Labetalol HCl (Normodyne -) 300 mg PO BID [facility] Last Admin: 04/05/17 09:07 Dose: 300 mg Losartan Potassium (Cozaar -) 100 mg PO DAILY [facility] Last Admin: 04/05/17 09:07 Dose: 100 mg Nifedipine (Procardia Xl -) 60 mg PO BID [facility] Last Admin: 04/05/17 09:07 Dose: 60 mg Oxycodone HCl (Roxicodone -) 5 mg PO Q4H PRN PRN Reason: PAIN Last Admin: 04/03/17 11:25 Dose: 5 mg Polyethylene Glycol (Miralax (For Daily Use) -) 17 gm PO DAILY [facility] Last Admin: 04/04/17 11:43 Dose: Not Given Ranitidine HCl (Zantac -) 150 mg PO DAILY [facility] Last Admin: 04/05/17 09:07 Dose: 150 mg Senna (Senna -) 1 tab PO HS [facility] Last Admin: 04/04/17 21:26 Dose: 1 tab Sevelamer Carbonate (Renvela -) 800 mg PO TIDCM [facility] Last Admin: 04/05/17 09:06 Dose: Not Given Spironolactone (Aldactone -) 25 mg PO DAILY [facility] Last Admin: 04/05/17 09:07 Dose: 25 mg - Objective Vital Signs: Vital Signs Temperature 37.0 C 04/05/17 09:00 Pulse Rate 77 04/05/17 09:00 Respiratory Rate 18 04/05/17 09:00 Blood Pressure 179/89 04/05/17 09:00 O2 Sat by Pulse Oximetry (%) 97 04/05/17 09:00 Constitutional: Yes: Well Nourished, No Distress, Calm Cardiovascular: Yes: Regular Rate and Rhythm. No: Gallop, Murmur, Rub Respiratory: Yes: Regular, CTA Bilaterally. No: Rales, Rhonchi, Wheezes Gastrointestinal: Yes: Normal Bowel Sounds, Soft. No: Distention, Tenderness Extremities: Yes: WNL Edema: No Labs: CBC, BMP 04/05/17 06:00 04/05/17 06:00 INR, PTT INR 1.03 (0.82-1.09) 04/03/17 06:00 Problem List - Problems (1) Discitis of lumbosacral region Code(s): M46.47 - DISCITIS, UNSPECIFIED, LUMBOSACRAL REGION (2) Rheumatoid arthritis involving both hips Code(s): M06.9 - RHEUMATOID ARTHRITIS, UNSPECIFIED (3) Diabetes Code(s): E11.9 - TYPE 2 DIABETES MELLITUS WITHOUT COMPLICATIONS (4) ESRD (end stage renal disease) Code(s): N18.6 - END STAGE RENAL DISEASE (5) Hyperlipidemia Code(s): E78.5 - HYPERLIPIDEMIA, UNSPECIFIED (6) Hypertension Code(s): I10 - ESSENTIAL (PRIMARY) HYPERTENSION (7) GERD (gastroesophageal reflux disease) Code(s): K21.9 - GASTRO-ESOPHAGEAL REFLUX DISEASE WITHOUT ESOPHAGITIS Assessment/Plan (1) Lumbrosacral discitis with destruction Assessment/Plan: -unable to obtain biopsy, secondary to hypertension and changes on telemetry monitoring -patient asymptomatic and EKG performed, unchanged -will d/w ID about feasability of obtaining biopsy -? possible empiric antibiotics (2) Rheumatoid arthritis of the R hip -appreciate ortho assistance -outpatient elective hip replacement -continue PT while here (3) Diabetes Assessment/Plan: -diet controlled -diabetic diet Code(s): E11.9 - TYPE 2 DIABETES MELLITUS WITHOUT COMPLICATIONS (4) ESRD (end stage renal disease) Assessment/Plan: -nephrology following -HD TRS Code(s): N18.6 - END STAGE RENAL DISEASE (5) Hyperlipidemia Assessment/Plan: -continue lipitor Code(s): E78.5 - HYPERLIPIDEMIA, UNSPECIFIED (6) Hypertension Assessment/Plan: -continues to elevate during attempts at biopsy -may be secondary to positioning (patient lying on stomach, increased CO2 retention and compression or aorta) -Dr Smith following and to adjust as needed -? benefit from hydralazine -aldactone added this hospital stay Code(s): I10 - ESSENTIAL (PRIMARY) HYPERTENSION (7) GERD (gastroesophageal reflux disease) Assessment/Plan: -continue ranitidine Code(s): K21.9 - GASTRO-ESOPHAGEAL REFLUX DISEASE WITHOUT ESOPHAGITIS
--- NOTE | 2017-04-05 13:54 | PN ---
Progress Note (short form) - Note Progress Note: Renal Follow up for ESRD on HD Pt seen and examined at the bedside s/p IR bone biopsy this am BP has been better s/p dialysis yesterday Vital Signs Temperature 98.6 F 04/05/17 09:00 Pulse Rate 77 04/05/17 09:00 Respiratory Rate 18 04/05/17 09:00 Blood Pressure 179/89 04/05/17 09:00 O2 Sat by Pulse Oximetry (%) 97 04/05/17 09:00 Gen: NAD Ext: No edema CBC, BMP 04/05/17 06:00 04/05/17 06:00 Current Medications Acetaminophen (Tylenol -) 650 mg PO Q4H PRN PRN Reason: FEVER OR PAIN Last Admin: 04/03/17 11:24 Dose: 650 mg Atorvastatin Calcium (Lipitor -) 10 mg PO HS [facility] Last Admin: 04/04/17 21:26 Dose: 10 mg Docusate Sodium (Colace -) 100 mg PO BID [facility] Last Admin: 04/05/17 09:07 Dose: 100 mg Heparin Sodium (Porcine) (Heparin -) 5,000 unit SQ Q8H-IV [facility] Last Admin: 04/05/17 09:18 Dose: Not Given Labetalol HCl (Normodyne -) 300 mg PO BID [facility] Last Admin: 04/05/17 09:07 Dose: 300 mg Losartan Potassium (Cozaar -) 100 mg PO DAILY [facility] Last Admin: 04/05/17 09:07 Dose: 100 mg Nifedipine (Procardia Xl -) 60 mg PO BID [facility] Last Admin: 04/05/17 09:07 Dose: 60 mg Oxycodone HCl (Roxicodone -) 5 mg PO Q4H PRN PRN Reason: PAIN Last Admin: 04/03/17 11:25 Dose: 5 mg Polyethylene Glycol (Miralax (For Daily Use) -) 17 gm PO DAILY [facility] Last Admin: 04/04/17 11:43 Dose: Not Given Ranitidine HCl (Zantac -) 150 mg PO DAILY [facility] Last Admin: 04/05/17 09:07 Dose: 150 mg Senna (Senna -) 1 tab PO HS [facility] Last Admin: 04/04/17 21:26 Dose: 1 tab Sevelamer Carbonate (Renvela -) 800 mg PO TIDCM [facility] Last Admin: 04/05/17 09:06 Dose: Not Given Spironolactone (Aldactone -) 25 mg PO DAILY [facility] Last Admin: 04/05/17 09:07 Dose: 25 mg A/P 76 year old woman with PMhx of ESRD on HD (TTS at [facility]) x 5 years, Hypertension, Ovarian Ca who presented with hip pain and outpatient imaging studies consistent with joint effusion concerning for septic joint. #ESRD on HD no acute indication for dialysis today next treatment planned for tomorrow #Degenerative Hip joint/Lumbar Osteomylitis s/p IR bone biopsy today f/u pathology being followed by ID, ABx as needed once path is reviewed #Hypertenion BP improved today continue Losartan, Procardia, Labetalol, Aldactone Low salt diet pain control w/o NSIADs if possible #Renal Osteodystrophy Continue Renvela with meals Trend Phos levels Thanks Asa Smith DO Problem List - Problems (1) Diabetes Code(s): E11.9 - TYPE 2 DIABETES MELLITUS WITHOUT COMPLICATIONS (2) ESRD (end stage renal disease) Code(s): N18.6 - END STAGE RENAL DISEASE (3) Hypertension Code(s): I10 - ESSENTIAL (PRIMARY) HYPERTENSION
[2017-04-05] MEDS ORDERED: hydrALAZINE HCL 10 MG TABLET PO PRN (14:11)
[2017-04-05] MEDS: ATORVASTATIN CA 10 MG TABLET (FP) PO SCH (21:27)
[2017-04-05] MEDS: SENNOSIDES 8.6MG TABLET (FP) PO SCH (21:27)
[2017-04-06] MEDS: HEPARIN NA (PORCINE) 5,000 UNITS/ML 1ML VIAL SQ SCH ×3 (07:22→17:55)
[2017-04-06] MEDS: SEVELAMER CARBONATE 800 MG TAB (FP) PO SCH ×3 (07:59→17:55)
[2017-04-06 08:42] LABS: BASOPHIL 0.9 % (0-2.0); EOSINOPHIL 3.7 % (0-4.5); MCH 29.4 pg (25.7-33.7); MCHC 32.7 g/dl (32.0-36.0); MEAN CELL VOLUME 89.7 fl (80-96); MEAN PLT VOLUME 8.6 fl (7.5-11.1); NEUTROPHILS 59.7 % (42.8-82.8); PLATELET COUNT 128 K/MM3 (134-434); RDW 16.3 % (11.6-15.6); WHITE BLOOD COUNT 5.6 K/mm3 (4.0-10.0)
[2017-04-06 09:07] LABS: ANION GAP 12 (8-16); CALCIUM 9.1 mg/dL (8.5-10.1); CO2 29 mmol/L (21-32); CREATININE 5.8 mg/dL (0.55-1.02); GLUCOSE,RANDOM 64 mg/dL (74-106); MAGNESIUM 2.4 mg/dL (1.8-2.4); PHOSPHOROUS 3.6 mg/dL (2.5-4.9)
[2017-04-06] MEDS: NIFEdipine E.R. 30 MG TABLET (FP) PO SCH ×2 (12:26→21:39)
[2017-04-06] MEDS: LABETALOL HCL 100 MG TABLET (FP) PO SCH ×2 (12:26→21:39)
[2017-04-06] MEDS: LOSARTAN POTASSIUM 50 MG TABLET (FP) PO SCH (12:26)
[2017-04-06] MEDS: RANITIDINE HCL 150 MG TABLET (FP) PO SCH (12:26)
[2017-04-06] MEDS: SPIRONOLACTONE 25 MG TABLET (FP) PO SCH (12:27)
[2017-04-06] MEDS: DOCUSATE SODIUM 100 MG CAPSULE (FP) PO SCH ×2 (12:27→21:38)
[2017-04-06] MEDS: POLYETHYLENE GLYCOL 3350 119 GM BTL PO SCH (12:27)
--- NOTE | 2017-04-06 12:27 | PN ---
Progress Note, Physician Chief Complaint: Ms Crain has no new complaints. No cp, sob, n/v. Saying she is ready to go home. - Current Medication List Current Medications: Active Medications Acetaminophen (Tylenol -) 650 mg PO Q4H PRN PRN Reason: FEVER OR PAIN Last Admin: 04/03/17 11:24 Dose: 650 mg Atorvastatin Calcium (Lipitor -) 10 mg PO HS [facility] Last Admin: 04/05/17 21:27 Dose: 10 mg Docusate Sodium (Colace -) 100 mg PO BID [facility] Last Admin: 04/05/17 21:27 Dose: 100 mg Heparin Sodium (Porcine) (Heparin -) 5,000 unit SQ Q8H-IV [facility] Last Admin: 04/06/17 12:01 Dose: Not Given Hydralazine HCl (Apresoline -) 10 mg PO Q6H PRN PRN Reason: HYPERTENSION Labetalol HCl (Normodyne -) 300 mg PO BID [facility] Last Admin: 04/05/17 21:27 Dose: 300 mg Losartan Potassium (Cozaar -) 100 mg PO DAILY [facility] Last Admin: 04/05/17 09:07 Dose: 100 mg Nifedipine (Procardia Xl -) 60 mg PO BID [facility] Last Admin: 04/05/17 21:26 Dose: 60 mg Oxycodone HCl (Roxicodone -) 5 mg PO Q4H PRN PRN Reason: PAIN Last Admin: 04/03/17 11:25 Dose: 5 mg Polyethylene Glycol (Miralax (For Daily Use) -) 17 gm PO DAILY [facility] Last Admin: 04/05/17 09:11 Dose: Not Given Ranitidine HCl (Zantac -) 150 mg PO DAILY [facility] Last Admin: 04/05/17 09:07 Dose: 150 mg Senna (Senna -) 1 tab PO HS [facility] Last Admin: 04/05/17 21:27 Dose: 1 tab Sevelamer Carbonate (Renvela -) 800 mg PO TIDCM [facility] Last Admin: 04/06/17 07:59 Dose: Not Given Spironolactone (Aldactone -) 25 mg PO DAILY [facility] Last Admin: 04/05/17 09:07 Dose: 25 mg - Objective Vital Signs: Vital Signs Temperature 36.9 C 04/06/17 11:35 Pulse Rate 66 04/06/17 11:35 Respiratory Rate 18 04/06/17 11:35 Blood Pressure 185/81 04/06/17 11:35 O2 Sat by Pulse Oximetry (%) 100 04/05/17 20:22 Constitutional: Yes: Well Nourished, No Distress, Calm Cardiovascular: Yes: Regular Rate and Rhythm. No: Gallop, Murmur, Rub Respiratory: Yes: Regular, CTA Bilaterally. No: Rales, Rhonchi, Wheezes Gastrointestinal: Yes: Normal Bowel Sounds, Soft. No: Distention, Tenderness Extremities: Yes: WNL Edema: No Labs: CBC, BMP 04/06/17 08:00 04/06/17 08:00 INR, PTT INR 1.03 (0.82-1.09) 04/03/17 06:00 Problem List - Problems (1) Discitis of lumbosacral region Code(s): M46.47 - DISCITIS, UNSPECIFIED, LUMBOSACRAL REGION (2) Rheumatoid arthritis involving both hips Code(s): M06.9 - RHEUMATOID ARTHRITIS, UNSPECIFIED (3) Diabetes Code(s): E11.9 - TYPE 2 DIABETES MELLITUS WITHOUT COMPLICATIONS (4) ESRD (end stage renal disease) Code(s): N18.6 - END STAGE RENAL DISEASE (5) Hyperlipidemia Code(s): E78.5 - HYPERLIPIDEMIA, UNSPECIFIED (6) Hypertension Code(s): I10 - ESSENTIAL (PRIMARY) HYPERTENSION (7) GERD (gastroesophageal reflux disease) Code(s): K21.9 - GASTRO-ESOPHAGEAL REFLUX DISEASE WITHOUT ESOPHAGITIS Assessment/Plan (1) Lumbrosacral discitis with destruction Assessment/Plan: -attempting to obtain biopsy but may not be able -will d/w ID about other options (2) Rheumatoid arthritis of the R hip -appreciate ortho assistance -outpatient elective hip replacement -continue PT while here (3) Diabetes Assessment/Plan: -diet controlled -diabetic diet Code(s): E11.9 - TYPE 2 DIABETES MELLITUS WITHOUT COMPLICATIONS (4) ESRD (end stage renal disease) Assessment/Plan: -nephrology following -HD TRS Code(s): N18.6 - END STAGE RENAL DISEASE (5) Hyperlipidemia Assessment/Plan: -continue lipitor Code(s): E78.5 - HYPERLIPIDEMIA, UNSPECIFIED (6) Hypertension Assessment/Plan: -nephrology following and managing -still elevated -? if would benefit from scheduled hydralazine Code(s): I10 - ESSENTIAL (PRIMARY) HYPERTENSION (7) GERD (gastroesophageal reflux disease) Assessment/Plan: -continue ranitidine Code(s): K21.9 - GASTRO-ESOPHAGEAL REFLUX DISEASE WITHOUT ESOPHAGITIS
--- NOTE | 2017-04-06 13:34 | PN ---
Progress Note (short form) - Note Progress Note: Renal Follow up for ESRD on HD Pt seen and examined during dialysis BP 170's/80's, access with good flow, Pressures WNL UF goal is 3L pt without any acute complaints. Vital Signs Temperature 98.5 F 04/06/17 11:35 Pulse Rate 66 04/06/17 11:35 Respiratory Rate 18 04/06/17 11:35 Blood Pressure 185/81 04/06/17 11:35 O2 Sat by Pulse Oximetry (%) 98 04/06/17 09:00 Intake & Output 04/03/17 04/04/17 04/05/17 04/06/17 23:59 23:59 23:59 23:59 Intake Total 550 120 400 Output Total 0 0 Balance 550 120 400 Gen: NAD CVS: RRR Lungs: CTA Ext: No edema CBC, BMP 04/06/17 08:00 04/06/17 08:00 Current Medications Acetaminophen (Tylenol -) 650 mg PO Q4H PRN PRN Reason: FEVER OR PAIN Last Admin: 04/03/17 11:24 Dose: 650 mg Atorvastatin Calcium (Lipitor -) 10 mg PO HS [facility] Last Admin: 04/05/17 21:27 Dose: 10 mg Docusate Sodium (Colace -) 100 mg PO BID [facility] Last Admin: 04/06/17 12:27 Dose: 100 mg Heparin Sodium (Porcine) (Heparin -) 5,000 unit SQ Q8H-IV [facility] Last Admin: 04/06/17 12:01 Dose: Not Given Hydralazine HCl (Apresoline -) 10 mg PO Q6H PRN PRN Reason: HYPERTENSION Labetalol HCl (Normodyne -) 300 mg PO BID [facility] Last Admin: 04/06/17 12:26 Dose: 300 mg Losartan Potassium (Cozaar -) 100 mg PO DAILY [facility] Last Admin: 04/06/17 12:26 Dose: 100 mg Nifedipine (Procardia Xl -) 60 mg PO BID [facility] Last Admin: 04/06/17 12:26 Dose: 60 mg Oxycodone HCl (Roxicodone -) 5 mg PO Q4H PRN PRN Reason: PAIN Last Admin: 04/03/17 11:25 Dose: 5 mg Polyethylene Glycol (Miralax (For Daily Use) -) 17 gm PO DAILY [facility] Last Admin: 04/06/17 12:27 Dose: 17 gm Ranitidine HCl (Zantac -) 150 mg PO DAILY [facility] Last Admin: 04/06/17 12:26 Dose: 150 mg Senna (Senna -) 1 tab PO HS [facility] Last Admin: 04/05/17 21:27 Dose: 1 tab Sevelamer Carbonate (Renvela -) 800 mg PO TIDCM [facility] Last Admin: 04/06/17 12:27 Dose: 800 mg Spironolactone (Aldactone -) 25 mg PO DAILY [facility] Last Admin: 04/06/17 12:27 Dose: 25 mg A/P 76 year old woman with PMhx of ESRD on HD (TTS at [facility]) x 5 years, Hypertension, Ovarian Ca who presented with hip pain and outpatient imaging studies consistent with joint effusion concerning for septic joint. #ESRD on HD Tolerated dialysis well today UF goal is 3L Next scheduled dialysis is monday dose all meds for intermittent HD #Degenerative Hip joint/Lumbar Osteomylitis Bone biopsy unable to be performed because of elevated BP pain control #Hypertenion BP remained high during dialysis, will get all BP meds following and can trend BP during the day PRN hydralazine #Renal Osteodystrophy Continue Renvela with meals Thanks Asa Smith DO Problem List - Problems (1) Diabetes Code(s): E11.9 - TYPE 2 DIABETES MELLITUS WITHOUT COMPLICATIONS (2) ESRD (end stage renal disease) Code(s): N18.6 - END STAGE RENAL DISEASE (3) Hypertension Code(s): I10 - ESSENTIAL (PRIMARY) HYPERTENSION
--- NOTE | 2017-04-06 14:10 | PN ---
Progress Note, Physician History of Present Illness: stable still not got biopsy - Current Medication List Current Medications: Active Medications Acetaminophen (Tylenol -) 650 mg PO Q4H PRN PRN Reason: FEVER OR PAIN Last Admin: 04/03/17 11:24 Dose: 650 mg Atorvastatin Calcium (Lipitor -) 10 mg PO HS [facility] Last Admin: 04/05/17 21:27 Dose: 10 mg Docusate Sodium (Colace -) 100 mg PO BID [facility] Last Admin: 04/06/17 12:27 Dose: 100 mg Heparin Sodium (Porcine) (Heparin -) 5,000 unit SQ Q8H-IV [facility] Last Admin: 04/06/17 12:01 Dose: Not Given Hydralazine HCl (Apresoline -) 10 mg PO Q6H PRN PRN Reason: HYPERTENSION Labetalol HCl (Normodyne -) 300 mg PO BID [facility] Last Admin: 04/06/17 12:26 Dose: 300 mg Losartan Potassium (Cozaar -) 100 mg PO DAILY [facility] Last Admin: 04/06/17 12:26 Dose: 100 mg Nifedipine (Procardia Xl -) 60 mg PO BID [facility] Last Admin: 04/06/17 12:26 Dose: 60 mg Oxycodone HCl (Roxicodone -) 5 mg PO Q4H PRN PRN Reason: PAIN Last Admin: 04/03/17 11:25 Dose: 5 mg Polyethylene Glycol (Miralax (For Daily Use) -) 17 gm PO DAILY [facility] Last Admin: 04/06/17 12:27 Dose: 17 gm Ranitidine HCl (Zantac -) 150 mg PO DAILY [facility] Last Admin: 04/06/17 12:26 Dose: 150 mg Senna (Senna -) 1 tab PO HS [facility] Last Admin: 04/05/17 21:27 Dose: 1 tab Sevelamer Carbonate (Renvela -) 800 mg PO TIDCM [facility] Last Admin: 04/06/17 12:27 Dose: 800 mg Spironolactone (Aldactone -) 25 mg PO DAILY [facility] Last Admin: 04/06/17 12:27 Dose: 25 mg - Objective Vital Signs: Vital Signs Temperature 98.2 F 04/06/17 14:00 Pulse Rate 68 04/06/17 14:00 Respiratory Rate 17 04/06/17 14:00 Blood Pressure 149/66 04/06/17 14:00 O2 Sat by Pulse Oximetry (%) 98 04/06/17 09:00 Constitutional: Yes: No Distress, Calm Cardiovascular: Yes: Regular Rate and Rhythm Respiratory: Yes: Regular, CTA Bilaterally Gastrointestinal: Yes: Normal Bowel Sounds, Soft Musculoskeletal: Yes: WNL Extremities: Yes: Other Neurological: Yes: Alert, Oriented Psychiatric: Yes: Alert, Oriented Labs: CBC, BMP 04/06/17 08:00 04/06/17 08:00 INR, PTT INR 1.03 (0.82-1.09) 04/03/17 06:00 Assessment/Plan Problem List - Problems (1) Avascular necrosis Code(s): M87.00 - IDIOPATHIC ASEPTIC NECROSIS OF UNSPECIFIED BONE (2) Diabetes Code(s): E11.9 - TYPE 2 DIABETES MELLITUS WITHOUT COMPLICATIONS (3) ESRD (end stage renal disease) Code(s): N18.6 - END STAGE RENAL DISEASE (4) Hyperlipidemia Code(s): E78.5 - HYPERLIPIDEMIA, UNSPECIFIED (5) Hypertension Code(s): I10 - ESSENTIAL (PRIMARY) HYPERTENSION (6) GERD (gastroesophageal reflux disease) Code(s): K21.9 - GASTRO-ESOPHAGEAL REFLUX DISEASE WITHOUT ESOPHAGITIS discitis of the spine r/o osteo plan await for biopsy rest as per primary
[2017-04-06] MEDS: SENNOSIDES 8.6MG TABLET (FP) PO SCH (21:38)
[2017-04-06] MEDS: ATORVASTATIN CA 10 MG TABLET (FP) PO SCH (21:38)
[2017-04-07] MEDS: HEPARIN NA (PORCINE) 5,000 UNITS/ML 1ML VIAL SQ SCH ×3 (01:05→17:08)
[2017-04-07] MEDS: SEVELAMER CARBONATE 800 MG TAB (FP) PO SCH ×3 (07:55→17:06)
[2017-04-07] MEDS ORDERED: PT OWN MED DRAWER 7, Y5N ONE (10:09)
[2017-04-07] MEDS: LABETALOL HCL 100 MG TABLET (FP) PO SCH ×2 (10:12→21:48)
[2017-04-07] MEDS: LOSARTAN POTASSIUM 50 MG TABLET (FP) PO SCH (10:12)
[2017-04-07] MEDS: RANITIDINE HCL 150 MG TABLET (FP) PO SCH (10:13)
[2017-04-07] MEDS: NIFEdipine E.R. 30 MG TABLET (FP) PO SCH ×2 (10:13→21:48)
[2017-04-07] MEDS: SPIRONOLACTONE 25 MG TABLET (FP) PO SCH (10:13)
[2017-04-07] MEDS: DOCUSATE SODIUM 100 MG CAPSULE (FP) PO SCH ×2 (10:13→21:48)
[2017-04-07] MEDS: POLYETHYLENE GLYCOL 3350 119 GM BTL PO SCH (10:14)
--- NOTE | 2017-04-07 12:44 | PN ---
Progress Note, Physician Chief Complaint: Ms Crain has no new complaints. No cp, sob, n/v. Tolerated biopsy without difficulty. - Current Medication List Current Medications: Active Medications Acetaminophen (Tylenol -) 650 mg PO Q4H PRN PRN Reason: FEVER OR PAIN Last Admin: 04/03/17 11:24 Dose: 650 mg Atorvastatin Calcium (Lipitor -) 10 mg PO HS [facility] Last Admin: 04/06/17 21:38 Dose: 10 mg Docusate Sodium (Colace -) 100 mg PO BID [facility] Last Admin: 04/07/17 10:13 Dose: 100 mg Heparin Sodium (Porcine) (Heparin -) 5,000 unit SQ Q8H-IV [facility] Last Admin: 04/07/17 10:13 Dose: 5,000 unit Hydralazine HCl (Apresoline -) 10 mg PO Q6H PRN PRN Reason: HYPERTENSION Labetalol HCl (Normodyne -) 300 mg PO BID [facility] Last Admin: 04/07/17 10:12 Dose: 300 mg Losartan Potassium (Cozaar -) 100 mg PO DAILY [facility] Last Admin: 04/07/17 10:12 Dose: 100 mg Nifedipine (Procardia Xl -) 60 mg PO BID [facility] Last Admin: 04/07/17 10:13 Dose: 60 mg Oxycodone HCl (Roxicodone -) 5 mg PO Q4H PRN PRN Reason: PAIN Last Admin: 04/03/17 11:25 Dose: 5 mg Polyethylene Glycol (Miralax (For Daily Use) -) 17 gm PO DAILY [facility] Last Admin: 04/07/17 10:14 Dose: 17 gm Ranitidine HCl (Zantac -) 150 mg PO DAILY [facility] Last Admin: 04/07/17 10:13 Dose: 150 mg Senna (Senna -) 1 tab PO HS [facility] Last Admin: 04/06/17 21:38 Dose: 1 tab Sevelamer Carbonate (Renvela -) 800 mg PO TIDCM [facility] Last Admin: 04/07/17 12:02 Dose: 800 mg Spironolactone (Aldactone -) 25 mg PO DAILY [facility] Last Admin: 04/07/17 10:13 Dose: 25 mg - Objective Vital Signs: Vital Signs Temperature 36.6 C 04/07/17 08:00 Pulse Rate 70 04/07/17 08:00 Respiratory Rate 18 04/07/17 08:00 Blood Pressure 160/76 04/07/17 08:00 O2 Sat by Pulse Oximetry (%) 100 04/06/17 20:23 Constitutional: Yes: Well Nourished, No Distress, Calm Cardiovascular: Yes: Regular Rate and Rhythm. No: Gallop, Murmur, Rub Respiratory: Yes: Regular, CTA Bilaterally. No: Rales, Rhonchi, Wheezes Gastrointestinal: Yes: Normal Bowel Sounds, Soft. No: Distention, Tenderness Extremities: Yes: WNL Edema: No Labs: CBC, BMP 04/06/17 08:00 04/06/17 08:00 INR, PTT INR 1.03 (0.82-1.09) 04/03/17 06:00 Problem List - Problems (1) Discitis of lumbosacral region Code(s): M46.47 - DISCITIS, UNSPECIFIED, LUMBOSACRAL REGION (2) Rheumatoid arthritis involving both hips Code(s): M06.9 - RHEUMATOID ARTHRITIS, UNSPECIFIED (3) Diabetes Code(s): E11.9 - TYPE 2 DIABETES MELLITUS WITHOUT COMPLICATIONS (4) ESRD (end stage renal disease) Code(s): N18.6 - END STAGE RENAL DISEASE (5) Hyperlipidemia Code(s): E78.5 - HYPERLIPIDEMIA, UNSPECIFIED (6) Hypertension Code(s): I10 - ESSENTIAL (PRIMARY) HYPERTENSION (7) GERD (gastroesophageal reflux disease) Code(s): K21.9 - GASTRO-ESOPHAGEAL REFLUX DISEASE WITHOUT ESOPHAGITIS Assessment/Plan (1) Lumbrosacral discitis with destruction Assessment/Plan: -biopsy obtained -await results -will d/w Dr Guidry about disposition and possible antibiotic regimen (2) Rheumatoid arthritis of the R hip -appreciate ortho assistance -outpatient elective hip replacement -continue PT while here (3) Diabetes Assessment/Plan: -diet controlled -diabetic diet Code(s): E11.9 - TYPE 2 DIABETES MELLITUS WITHOUT COMPLICATIONS (4) ESRD (end stage renal disease) Assessment/Plan: -nephrology following -HD TRS Code(s): N18.6 - END STAGE RENAL DISEASE (5) Hyperlipidemia Assessment/Plan: -continue lipitor Code(s): E78.5 - HYPERLIPIDEMIA, UNSPECIFIED (6) Hypertension Assessment/Plan: -nephrology following and managing Code(s): I10 - ESSENTIAL (PRIMARY) HYPERTENSION (7) GERD (gastroesophageal reflux disease) Assessment/Plan: -continue ranitidine Code(s): K21.9 - GASTRO-ESOPHAGEAL REFLUX DISEASE WITHOUT ESOPHAGITIS
--- NOTE | 2017-04-07 14:18 | PN ---
Progress Note (short form) - Note Progress Note: Renal Follow up for ESRD on HD Pt seen and examined at the bedside s/p biopsy yesterday pt without any acute complaints continues to have some hip discomfort no N/V/D, CP, SOb, Abd pain s/p dialysis yesterday Vital Signs Temperature 98 F 04/07/17 08:00 Pulse Rate 70 04/07/17 08:00 Respiratory Rate 18 04/07/17 08:00 Blood Pressure 160/76 04/07/17 08:00 O2 Sat by Pulse Oximetry (%) 96 04/07/17 09:00 Intake & Output 04/04/17 04/05/17 04/06/17 04/07/17 23:59 23:59 23:59 23:59 Intake Total 120 400 550 100 Output Total 0 0 0 Balance 120 400 550 100 Gen: NAD CVS: RRR Lungs: CTA Ext: No edema CBC, BMP 04/06/17 08:00 04/06/17 08:00 Laboratory Tests 04/06/17 08:00 Calcium 9.1 Phosphorus 3.6 D Magnesium 2.4 Current Medications Acetaminophen (Tylenol -) 650 mg PO Q4H PRN PRN Reason: FEVER OR PAIN Last Admin: 04/03/17 11:24 Dose: 650 mg Atorvastatin Calcium (Lipitor -) 10 mg PO HS [facility] Last Admin: 04/06/17 21:38 Dose: 10 mg Docusate Sodium (Colace -) 100 mg PO BID [facility] Last Admin: 04/07/17 10:13 Dose: 100 mg Heparin Sodium (Porcine) (Heparin -) 5,000 unit SQ Q8H-IV [facility] Last Admin: 04/07/17 10:13 Dose: 5,000 unit Hydralazine HCl (Apresoline -) 10 mg PO Q6H PRN PRN Reason: HYPERTENSION Labetalol HCl (Normodyne -) 300 mg PO BID [facility] Last Admin: 04/07/17 10:12 Dose: 300 mg Losartan Potassium (Cozaar -) 100 mg PO DAILY [facility] Last Admin: 04/07/17 10:12 Dose: 100 mg Nifedipine (Procardia Xl -) 60 mg PO BID [facility] Last Admin: 04/07/17 10:13 Dose: 60 mg Oxycodone HCl (Roxicodone -) 5 mg PO Q4H PRN PRN Reason: PAIN Last Admin: 04/03/17 11:25 Dose: 5 mg Polyethylene Glycol (Miralax (For Daily Use) -) 17 gm PO DAILY [facility] Last Admin: 04/07/17 10:14 Dose: 17 gm Ranitidine HCl (Zantac -) 150 mg PO DAILY [facility] Last Admin: 04/07/17 10:13 Dose: 150 mg Senna (Senna -) 1 tab PO HS [facility] Last Admin: 04/06/17 21:38 Dose: 1 tab Sevelamer Carbonate (Renvela -) 800 mg PO TIDCM [facility] Last Admin: 04/07/17 12:02 Dose: 800 mg Spironolactone (Aldactone -) 25 mg PO DAILY [facility] Last Admin: 04/07/17 10:13 Dose: 25 mg A/P 76 year old woman with PMhx of ESRD on HD (TTS at [facility]) x 5 years, Hypertension, Ovarian Ca who presented with hip pain and outpatient imaging studies consistent with joint effusion concerning for septic joint. #ESRD on HD no acute indication for dialysis today, next treatment planned for tomorrow #Degenerative Hip joint/Lumbar Osteomylitis Bone biopsy done, results pending #Hypertenion BP improved, continue Nifedipine, Labetalol, Aldactone, Losartan Goal BP < 140/90 #Renal Osteodystrophy Continue Renvela with meals Thanks Asa Smith DO Problem List - Problems (1) Diabetes Code(s): E11.9 - TYPE 2 DIABETES MELLITUS WITHOUT COMPLICATIONS (2) ESRD (end stage renal disease) Code(s): N18.6 - END STAGE RENAL DISEASE (3) Hypertension Code(s): I10 - ESSENTIAL (PRIMARY) HYPERTENSION
--- NOTE | 2017-04-07 15:10 | PN ---
Progress Note, Physician History of Present Illness: patient post biopsy tolerated procedure no complaints - Current Medication List Current Medications: Active Medications Acetaminophen (Tylenol -) 650 mg PO Q4H PRN PRN Reason: FEVER OR PAIN Last Admin: 04/03/17 11:24 Dose: 650 mg Atorvastatin Calcium (Lipitor -) 10 mg PO HS [facility] Last Admin: 04/06/17 21:38 Dose: 10 mg Docusate Sodium (Colace -) 100 mg PO BID [facility] Last Admin: 04/07/17 10:13 Dose: 100 mg Epoetin Kin (Epogen -) 4,000 units IVPUSH ONCE ONE Stop: 04/08/17 06:01 Heparin Sodium (Porcine) (Heparin -) 5,000 unit SQ Q8H-IV [facility] Last Admin: 04/07/17 10:13 Dose: 5,000 unit Hydralazine HCl (Apresoline -) 10 mg PO Q6H PRN PRN Reason: HYPERTENSION Labetalol HCl (Normodyne -) 300 mg PO BID [facility] Last Admin: 04/07/17 10:12 Dose: 300 mg Losartan Potassium (Cozaar -) 100 mg PO DAILY [facility] Last Admin: 04/07/17 10:12 Dose: 100 mg Nifedipine (Procardia Xl -) 60 mg PO BID [facility] Last Admin: 04/07/17 10:13 Dose: 60 mg Oxycodone HCl (Roxicodone -) 5 mg PO Q4H PRN PRN Reason: PAIN Last Admin: 04/03/17 11:25 Dose: 5 mg Polyethylene Glycol (Miralax (For Daily Use) -) 17 gm PO DAILY [facility] Last Admin: 04/07/17 10:14 Dose: 17 gm Ranitidine HCl (Zantac -) 150 mg PO DAILY [facility] Last Admin: 04/07/17 10:13 Dose: 150 mg Senna (Senna -) 1 tab PO HS [facility] Last Admin: 04/06/17 21:38 Dose: 1 tab Sevelamer Carbonate (Renvela -) 800 mg PO TIDCM [facility] Last Admin: 04/07/17 12:02 Dose: 800 mg Spironolactone (Aldactone -) 25 mg PO DAILY [facility] Last Admin: 04/07/17 10:13 Dose: 25 mg - Objective Vital Signs: Vital Signs Temperature 98.0 F 04/07/17 14:00 Pulse Rate 65 04/07/17 14:00 Respiratory Rate 20 04/07/17 14:00 Blood Pressure 140/66 04/07/17 14:00 O2 Sat by Pulse Oximetry (%) 96 04/07/17 09:00 Constitutional: Yes: No Distress, Calm Cardiovascular: Yes: Regular Rate and Rhythm Respiratory: Yes: Regular, CTA Bilaterally Gastrointestinal: Yes: Normal Bowel Sounds, Soft Musculoskeletal: Yes: Other Extremities: Yes: Other Neurological: Yes: Alert, Oriented Psychiatric: Yes: Alert, Oriented Labs: CBC, BMP 04/06/17 08:00 04/06/17 08:00 INR, PTT INR 1.03 (0.82-1.09) 04/03/17 06:00 Assessment/Plan Problem List - Problems (1) Avascular necrosis Code(s): M87.00 - IDIOPATHIC ASEPTIC NECROSIS OF UNSPECIFIED BONE (2) Diabetes Code(s): E11.9 - TYPE 2 DIABETES MELLITUS WITHOUT COMPLICATIONS (3) ESRD (end stage renal disease) Code(s): N18.6 - END STAGE RENAL DISEASE (4) Hyperlipidemia Code(s): E78.5 - HYPERLIPIDEMIA, UNSPECIFIED (5) Hypertension Code(s): I10 - ESSENTIAL (PRIMARY) HYPERTENSION (6) GERD (gastroesophageal reflux disease) Code(s): K21.9 - GASTRO-ESOPHAGEAL REFLUX DISEASE WITHOUT ESOPHAGITIS discitis of the spine r/o osteo plan await for cx reports once we have reports then will decide on further mgmt
[2017-04-07] MEDS: SENNOSIDES 8.6MG TABLET (FP) PO SCH (21:48)
[2017-04-07] MEDS: ATORVASTATIN CA 10 MG TABLET (FP) PO SCH (21:48)
[2017-04-08] MEDS: HEPARIN NA (PORCINE) 5,000 UNITS/ML 1ML VIAL SQ SCH ×3 (01:34→17:20)
[2017-04-08] MEDS: SEVELAMER CARBONATE 800 MG TAB (FP) PO SCH ×3 (07:28→17:16)
[2017-04-08] MEDS ORDERED: EPOETIN ALFA 2,000 UNITS/1 ML VIAL IVPUSH ONE (08:00)
[2017-04-08 09:10] LABS: MCH 29.2 pg (25.7-33.7); MCHC 32.5 g/dl (32.0-36.0); MEAN CELL VOLUME 89.7 fl (80-96); MEAN PLT VOLUME 8.9 fl (7.5-11.1); PLATELET COUNT 164 K/MM3 (134-434); RDW 16.4 % (11.6-15.6); WHITE BLOOD COUNT 4.7 K/mm3 (4.0-10.0)
[2017-04-08 09:24] LABS: ANION GAP 13 (8-16); CALCIUM 9.8 mg/dL (8.5-10.1); CO2 30 mmol/L (21-32); CREATININE 5.8 mg/dL (0.55-1.02); GLUCOSE,RANDOM 129 mg/dL (74-106); PHOSPHOROUS 2.6 mg/dL (2.5-4.9)
--- NOTE | 2017-04-08 11:09 | PN ---
Progress Note, Physician History of Present Illness: Received biopsy of lumbar disc yesterday. Other than some pain, feeling OK, currently receiving dialysis. - Current Medication List Current Medications: Active Medications Acetaminophen (Tylenol -) 650 mg PO Q4H PRN PRN Reason: FEVER OR PAIN Last Admin: 04/03/17 11:24 Dose: 650 mg Atorvastatin Calcium (Lipitor -) 10 mg PO HS [facility] Last Admin: 04/07/17 21:48 Dose: 10 mg Docusate Sodium (Colace -) 100 mg PO BID [facility] Last Admin: 04/07/17 21:48 Dose: 100 mg Heparin Sodium (Porcine) (Heparin -) 5,000 unit SQ Q8H-IV [facility] Last Admin: 04/08/17 01:34 Dose: 5,000 unit Hydralazine HCl (Apresoline -) 10 mg PO Q6H PRN PRN Reason: HYPERTENSION Labetalol HCl (Normodyne -) 300 mg PO BID [facility] Last Admin: 04/07/17 21:48 Dose: 300 mg Losartan Potassium (Cozaar -) 100 mg PO DAILY [facility] Last Admin: 04/07/17 10:12 Dose: 100 mg Nifedipine (Procardia Xl -) 60 mg PO BID [facility] Last Admin: 04/07/17 21:48 Dose: 60 mg Oxycodone HCl (Roxicodone -) 5 mg PO Q4H PRN PRN Reason: PAIN Last Admin: 04/03/17 11:25 Dose: 5 mg Polyethylene Glycol (Miralax (For Daily Use) -) 17 gm PO DAILY [facility] Last Admin: 04/07/17 10:14 Dose: 17 gm Ranitidine HCl (Zantac -) 150 mg PO DAILY [facility] Last Admin: 04/07/17 10:13 Dose: 150 mg Senna (Senna -) 1 tab PO HS [facility] Last Admin: 04/07/17 21:48 Dose: 1 tab Sevelamer Carbonate (Renvela -) 800 mg PO TIDCM [facility] Last Admin: 04/08/17 07:28 Dose: Not Given Spironolactone (Aldactone -) 25 mg PO DAILY [facility] Last Admin: 04/07/17 10:13 Dose: 25 mg - Objective Vital Signs: Vital Signs Temperature 98.2 F 04/08/17 07:55 Pulse Rate 60 04/08/17 10:30 Respiratory Rate 18 04/08/17 10:30 Blood Pressure 151/66 04/08/17 10:30 O2 Sat by Pulse Oximetry (%) 96 04/07/17 21:00 Constitutional: Yes: No Distress, Calm HENT: Yes: Atraumatic, Normocephalic Neck: Yes: Supple, Trachea Midline Cardiovascular: Yes: Regular Rate and Rhythm, S1, S2. No: Murmur Respiratory: Yes: Regular, CTA Bilaterally. No: Rales, Rhonchi, Wheezes Gastrointestinal: Yes: Normal Bowel Sounds, Soft. No: Distention, Tenderness Extremities: Yes: Other (left arm AV graft) Edema: No Neurological: Yes: Alert, Oriented Labs: CBC, BMP 04/08/17 08:49 04/08/17 08:49 INR, PTT INR 1.03 (0.82-1.09) 04/03/17 06:00 Assessment/Plan Current Active Problems Discitis of lumbosacral region (Acute) GERD (gastroesophageal reflux disease) (Acute) Osteomyelitis (Acute) Rheumatoid arthritis involving both hips (Acute) ESRD on dialysis -cont abx -awaiting biopsy results for further treatment planning
[2017-04-08] MEDS: LOSARTAN POTASSIUM 50 MG TABLET (FP) PO SCH (12:25)
[2017-04-08] MEDS: NIFEdipine E.R. 30 MG TABLET (FP) PO SCH ×2 (12:25→21:07)
[2017-04-08] MEDS: RANITIDINE HCL 150 MG TABLET (FP) PO SCH (12:26)
[2017-04-08] MEDS: LABETALOL HCL 100 MG TABLET (FP) PO SCH ×2 (12:26→21:08)
[2017-04-08] MEDS: DOCUSATE SODIUM 100 MG CAPSULE (FP) PO SCH ×2 (12:26→21:07)
[2017-04-08] MEDS: SPIRONOLACTONE 25 MG TABLET (FP) PO SCH (12:26)
[2017-04-08] MEDS: POLYETHYLENE GLYCOL 3350 119 GM BTL PO SCH (12:27)
--- NOTE | 2017-04-08 12:43 | PN ---
Progress Note, Physician Chief Complaint: The patient seen on dialysis in the Acute unit. BP stable. Orders reviewed with the RN. Still with back pain. Had bone biopsy. Results pending. - Current Medication List Current Medications: Active Medications Acetaminophen (Tylenol -) 650 mg PO Q4H PRN PRN Reason: FEVER OR PAIN Last Admin: 04/03/17 11:24 Dose: 650 mg Atorvastatin Calcium (Lipitor -) 10 mg PO HS [facility] Last Admin: 04/07/17 21:48 Dose: 10 mg Docusate Sodium (Colace -) 100 mg PO BID [facility] Last Admin: 04/08/17 12:26 Dose: 100 mg Heparin Sodium (Porcine) (Heparin -) 5,000 unit SQ Q8H-IV [facility] Last Admin: 04/08/17 12:26 Dose: 5,000 unit Hydralazine HCl (Apresoline -) 10 mg PO Q6H PRN PRN Reason: HYPERTENSION Labetalol HCl (Normodyne -) 300 mg PO BID [facility] Last Admin: 04/08/17 12:26 Dose: 300 mg Losartan Potassium (Cozaar -) 100 mg PO DAILY [facility] Last Admin: 04/08/17 12:25 Dose: 100 mg Nifedipine (Procardia Xl -) 60 mg PO BID [facility] Last Admin: 04/08/17 12:25 Dose: 60 mg Oxycodone HCl (Roxicodone -) 5 mg PO Q4H PRN PRN Reason: PAIN Last Admin: 04/03/17 11:25 Dose: 5 mg Polyethylene Glycol (Miralax (For Daily Use) -) 17 gm PO DAILY [facility] Last Admin: 04/08/17 12:27 Dose: 17 gm Ranitidine HCl (Zantac -) 150 mg PO DAILY [facility] Last Admin: 04/08/17 12:26 Dose: 150 mg Senna (Senna -) 1 tab PO HS [facility] Last Admin: 04/07/17 21:48 Dose: 1 tab Sevelamer Carbonate (Renvela -) 800 mg PO TIDCM [facility] Last Admin: 04/08/17 12:26 Dose: 800 mg Spironolactone (Aldactone -) 25 mg PO DAILY [facility] Last Admin: 04/08/17 12:26 Dose: 25 mg - Objective Vital Signs: Vital Signs Temperature 98 F 04/08/17 12:24 Pulse Rate 74 04/08/17 12:24 Respiratory Rate 18 04/08/17 12:24 Blood Pressure 164/78 04/08/17 12:24 O2 Sat by Pulse Oximetry (%) 98 04/08/17 07:30 Constitutional: Yes: Well Nourished, No Distress, Anxious, Pallor Eyes: Yes: Conjunctiva Clear HENT: Yes: Normocephalic Neck: Yes: Trachea Midline Cardiovascular: Yes: S1, S2 Respiratory: Yes: Regular, CTA Bilaterally, Diminished Gastrointestinal: Yes: Normal Bowel Sounds, Soft Musculoskeletal: Yes: Back Pain, Muscle Pain Neurological: Yes: Alert, Oriented Psychiatric: Yes: Alert, Oriented Labs: CBC, BMP 04/08/17 08:49 04/08/17 08:49 INR, PTT INR 1.03 (0.82-1.09) 04/03/17 06:00 Problem List - Problems (1) Discitis of lumbosacral region Code(s): M46.47 - DISCITIS, UNSPECIFIED, LUMBOSACRAL REGION (2) Osteomyelitis Code(s): M86.9 - OSTEOMYELITIS, UNSPECIFIED (3) Rheumatoid arthritis involving both hips Code(s): M06.9 - RHEUMATOID ARTHRITIS, UNSPECIFIED (4) AVF (arteriovenous fistula) Code(s): I77.0 - ARTERIOVENOUS FISTULA, ACQUIRED (5) Anemia Code(s): D64.9 - ANEMIA, UNSPECIFIED (6) Diabetes Code(s): E11.9 - TYPE 2 DIABETES MELLITUS WITHOUT COMPLICATIONS (7) ESRD (end stage renal disease) Code(s): N18.6 - END STAGE RENAL DISEASE (8) Osteoarthritis Code(s): M19.90 - UNSPECIFIED OSTEOARTHRITIS, UNSPECIFIED SITE Assessment/Plan 76 y/o female with ESRD admitted with severe back pain, with focal lesions of the spine. Biopsy of the bone done, results pending. Hemodialysis in progress. Tolerates well. Orders reviewed with the RN. Concur with the current management. Will follow with you. Ursula Echavarria MD
--- NOTE | 2017-04-08 15:02 | PN ---
Progress Note, Physician History of Present Illness: Pt seen and examined. Chart/labs/imaging reviewed. Pt is s/p biopsy. Remains afebrile, states she is without pain. Can ambulate with walker now. Has no specific complaints. - Current Medication List Current Medications: Active Medications Acetaminophen (Tylenol -) 650 mg PO Q4H PRN PRN Reason: FEVER OR PAIN Last Admin: 04/03/17 11:24 Dose: 650 mg Atorvastatin Calcium (Lipitor -) 10 mg PO HS [facility] Last Admin: 04/07/17 21:48 Dose: 10 mg Docusate Sodium (Colace -) 100 mg PO BID [facility] Last Admin: 04/08/17 12:26 Dose: 100 mg Heparin Sodium (Porcine) (Heparin -) 5,000 unit SQ Q8H-IV [facility] Last Admin: 04/08/17 12:26 Dose: 5,000 unit Hydralazine HCl (Apresoline -) 10 mg PO Q6H PRN PRN Reason: HYPERTENSION Labetalol HCl (Normodyne -) 300 mg PO BID [facility] Last Admin: 04/08/17 12:26 Dose: 300 mg Losartan Potassium (Cozaar -) 100 mg PO DAILY [facility] Last Admin: 04/08/17 12:25 Dose: 100 mg Nifedipine (Procardia Xl -) 60 mg PO BID [facility] Last Admin: 04/08/17 12:25 Dose: 60 mg Oxycodone HCl (Roxicodone -) 5 mg PO Q4H PRN PRN Reason: PAIN Last Admin: 04/03/17 11:25 Dose: 5 mg Polyethylene Glycol (Miralax (For Daily Use) -) 17 gm PO DAILY [facility] Last Admin: 04/08/17 12:27 Dose: 17 gm Ranitidine HCl (Zantac -) 150 mg PO DAILY [facility] Last Admin: 04/08/17 12:26 Dose: 150 mg Senna (Senna -) 1 tab PO HS [facility] Last Admin: 04/07/17 21:48 Dose: 1 tab Sevelamer Carbonate (Renvela -) 800 mg PO TIDCM [facility] Last Admin: 04/08/17 12:26 Dose: 800 mg Spironolactone (Aldactone -) 25 mg PO DAILY [facility] Last Admin: 04/08/17 12:26 Dose: 25 mg - Objective Vital Signs: Vital Signs Temperature 98.8 F 04/08/17 13:58 Pulse Rate 72 04/08/17 13:58 Respiratory Rate 20 04/08/17 13:58 Blood Pressure 159/78 04/08/17 13:58 O2 Sat by Pulse Oximetry (%) 98 04/08/17 07:30 Constitutional: Yes: No Distress, Calm Eyes: Yes: WNL HENT: Yes: Atraumatic Neck: Yes: WNL Cardiovascular: Yes: Regular Rate and Rhythm Respiratory: Yes: CTA Bilaterally Gastrointestinal: Yes: Normal Bowel Sounds, Soft Genitourinary: Yes: WNL Musculoskeletal: Yes: Other (no lumbar spinal/paraspinal tenderness) Extremities: Yes: WNL Integumentary: Yes: WNL Neurological: Yes: Alert, Oriented Labs: CBC, BMP 04/08/17 08:49 04/08/17 08:49 INR, PTT INR 1.03 (0.82-1.09) 04/03/17 06:00 Problem List - Problems (1) Discitis of lumbosacral region Code(s): M46.47 - DISCITIS, UNSPECIFIED, LUMBOSACRAL REGION (2) Rheumatoid arthritis involving both hips Code(s): M06.9 - RHEUMATOID ARTHRITIS, UNSPECIFIED (3) Anemia Code(s): D64.9 - ANEMIA, UNSPECIFIED (4) ESRD (end stage renal disease) Code(s): N18.6 - END STAGE RENAL DISEASE Assessment/Plan Pt s/p spinal biopsy remains clinically stable follow up biopsy/culture results monitor for now
[2017-04-08] MEDS: SENNOSIDES 8.6MG TABLET (FP) PO SCH (21:07)
[2017-04-08] MEDS: ATORVASTATIN CA 10 MG TABLET (FP) PO SCH (21:07)
[2017-04-09] MEDS: HEPARIN NA (PORCINE) 5,000 UNITS/ML 1ML VIAL SQ SCH ×3 (02:32→17:07)
--- NOTE | 2017-04-09 08:35 | PN ---
Progress Note, Physician History of Present Illness: Feels OK, gets back pain, but waxes and wanes in intensity. - Current Medication List Current Medications: Active Medications Acetaminophen (Tylenol -) 650 mg PO Q4H PRN PRN Reason: FEVER OR PAIN Last Admin: 04/03/17 11:24 Dose: 650 mg Atorvastatin Calcium (Lipitor -) 10 mg PO HS [facility] Last Admin: 04/08/17 21:07 Dose: 10 mg Docusate Sodium (Colace -) 100 mg PO BID [facility] Last Admin: 04/08/17 21:07 Dose: 100 mg Heparin Sodium (Porcine) (Heparin -) 5,000 unit SQ Q8H-IV [facility] Last Admin: 04/09/17 02:32 Dose: 5,000 unit Hydralazine HCl (Apresoline -) 10 mg PO Q6H PRN PRN Reason: HYPERTENSION Labetalol HCl (Normodyne -) 300 mg PO BID [facility] Last Admin: 04/08/17 21:08 Dose: 300 mg Losartan Potassium (Cozaar -) 100 mg PO DAILY [facility] Last Admin: 04/08/17 12:25 Dose: 100 mg Nifedipine (Procardia Xl -) 60 mg PO BID [facility] Last Admin: 04/08/17 21:07 Dose: 60 mg Oxycodone HCl (Roxicodone -) 5 mg PO Q4H PRN PRN Reason: PAIN Last Admin: 04/03/17 11:25 Dose: 5 mg Polyethylene Glycol (Miralax (For Daily Use) -) 17 gm PO DAILY [facility] Last Admin: 04/08/17 12:27 Dose: 17 gm Ranitidine HCl (Zantac -) 150 mg PO DAILY [facility] Last Admin: 04/08/17 12:26 Dose: 150 mg Senna (Senna -) 1 tab PO HS [facility] Last Admin: 04/08/17 21:07 Dose: 1 tab Sevelamer Carbonate (Renvela -) 800 mg PO TIDCM [facility] Last Admin: 04/08/17 17:16 Dose: 800 mg Spironolactone (Aldactone -) 25 mg PO DAILY [facility] Last Admin: 04/08/17 12:26 Dose: 25 mg - Objective Vital Signs: Vital Signs Temperature 98.7 F 04/09/17 06:00 Pulse Rate 80 04/09/17 06:00 Respiratory Rate 20 04/09/17 06:00 Blood Pressure 159/89 04/09/17 06:00 O2 Sat by Pulse Oximetry (%) 98 04/08/17 20:02 Constitutional: Yes: No Distress, Calm HENT: Yes: Atraumatic, Normocephalic Cardiovascular: Yes: Regular Rate and Rhythm, S1, S2. No: Murmur Respiratory: Yes: Regular, CTA Bilaterally Gastrointestinal: Yes: Normal Bowel Sounds, Soft. No: Distention, Tenderness Extremities: Yes: Other (left UE AVG) Edema: No Neurological: Yes: Alert, Oriented Labs: CBC, BMP 04/08/17 08:49 04/08/17 08:49 INR, PTT INR 1.03 (0.82-1.09) 04/03/17 06:00 Assessment/Plan Current Active Problems Discitis of lumbosacral region (Acute) GERD (gastroesophageal reflux disease) (Acute) Osteomyelitis (Acute) Rheumatoid arthritis involving both hips (Acute) ESRD on dialysis -cont abx -awaiting biopsy results/ culture
[2017-04-09] MEDS: LABETALOL HCL 100 MG TABLET (FP) PO SCH ×2 (09:16→21:16)
[2017-04-09] MEDS: NIFEdipine E.R. 30 MG TABLET (FP) PO SCH ×2 (09:17→21:16)
[2017-04-09] MEDS: RANITIDINE HCL 150 MG TABLET (FP) PO SCH (09:17)
[2017-04-09] MEDS: SPIRONOLACTONE 25 MG TABLET (FP) PO SCH (09:17)
[2017-04-09] MEDS: LOSARTAN POTASSIUM 50 MG TABLET (FP) PO SCH (09:17)
[2017-04-09] MEDS: DOCUSATE SODIUM 100 MG CAPSULE (FP) PO SCH ×2 (09:17→21:12)
[2017-04-09] MEDS: SEVELAMER CARBONATE 800 MG TAB (FP) PO SCH ×3 (09:17→17:07)
[2017-04-09] MEDS: POLYETHYLENE GLYCOL 3350 119 GM BTL PO SCH (09:18)
--- NOTE | 2017-04-09 12:59 | PN ---
Progress Note, Physician History of Present Illness: Pt states she feels well. Denies having any specific complaints. Able to walk with walker. Denies back pain. - Current Medication List Current Medications: Active Medications Acetaminophen (Tylenol -) 650 mg PO Q4H PRN PRN Reason: FEVER OR PAIN Last Admin: 04/03/17 11:24 Dose: 650 mg Atorvastatin Calcium (Lipitor -) 10 mg PO HS [facility] Last Admin: 04/08/17 21:07 Dose: 10 mg Docusate Sodium (Colace -) 100 mg PO BID [facility] Last Admin: 04/09/17 09:17 Dose: 100 mg Heparin Sodium (Porcine) (Heparin -) 5,000 unit SQ Q8H-IV [facility] Last Admin: 04/09/17 09:16 Dose: 5,000 unit Hydralazine HCl (Apresoline -) 10 mg PO Q6H PRN PRN Reason: HYPERTENSION Labetalol HCl (Normodyne -) 300 mg PO BID [facility] Last Admin: 04/09/17 09:16 Dose: 300 mg Losartan Potassium (Cozaar -) 100 mg PO DAILY [facility] Last Admin: 04/09/17 09:17 Dose: 100 mg Nifedipine (Procardia Xl -) 60 mg PO BID [facility] Last Admin: 04/09/17 09:17 Dose: 60 mg Oxycodone HCl (Roxicodone -) 5 mg PO Q4H PRN PRN Reason: PAIN Last Admin: 04/03/17 11:25 Dose: 5 mg Polyethylene Glycol (Miralax (For Daily Use) -) 17 gm PO DAILY [facility] Last Admin: 04/09/17 09:18 Dose: 17 gm Ranitidine HCl (Zantac -) 150 mg PO DAILY [facility] Last Admin: 04/09/17 09:17 Dose: 150 mg Senna (Senna -) 1 tab PO HS [facility] Last Admin: 04/08/17 21:07 Dose: 1 tab Sevelamer Carbonate (Renvela -) 800 mg PO TIDCM [facility] Last Admin: 04/09/17 09:17 Dose: 800 mg Spironolactone (Aldactone -) 25 mg PO DAILY [facility] Last Admin: 04/09/17 09:17 Dose: 25 mg - Objective Vital Signs: Vital Signs Temperature 98.1 F 04/09/17 08:00 Pulse Rate 74 04/09/17 08:00 Respiratory Rate 20 04/09/17 08:00 Blood Pressure 157/67 04/09/17 08:00 O2 Sat by Pulse Oximetry (%) 98 04/09/17 08:00 Constitutional: Yes: No Distress, Calm HENT: Yes: WNL Neck: Yes: WNL Cardiovascular: Yes: WNL Respiratory: Yes: WNL Gastrointestinal: Yes: WNL Musculoskeletal: Yes: Other (denies back pain) Integumentary: Yes: WNL Neurological: Yes: Alert, Oriented Psychiatric: Yes: Alert, Oriented Labs: CBC, BMP 04/08/17 08:49 04/08/17 08:49 INR, PTT INR 1.03 (0.82-1.09) 04/03/17 06:00 Microbiology 04/06/17 17:00 Gram Stain - Final Aspirate Body Fluid Culture - Preliminary NO AEROBIC GROWTH, 24 HRS Anaerobic Culture - Final NO ANAEROBES WERE ISOLATED Problem List - Problems (1) Discitis of lumbosacral region Code(s): M46.47 - DISCITIS, UNSPECIFIED, LUMBOSACRAL REGION (2) Rheumatoid arthritis involving both hips Code(s): M06.9 - RHEUMATOID ARTHRITIS, UNSPECIFIED (3) Anemia Code(s): D64.9 - ANEMIA, UNSPECIFIED (4) ESRD (end stage renal disease) Code(s): N18.6 - END STAGE RENAL DISEASE Assessment/Plan Pt remains stable No growth on aspirate thus far continue monitor for now
--- NOTE | 2017-04-09 14:35 | PN ---
Progress Note, Physician Chief Complaint: The patient seen on her bed. Comfortable. Denies any new complaints. Has back pain. - Current Medication List Current Medications: Active Medications Acetaminophen (Tylenol -) 650 mg PO Q4H PRN PRN Reason: FEVER OR PAIN Last Admin: 04/03/17 11:24 Dose: 650 mg Atorvastatin Calcium (Lipitor -) 10 mg PO HS [facility] Last Admin: 04/08/17 21:07 Dose: 10 mg Docusate Sodium (Colace -) 100 mg PO BID [facility] Last Admin: 04/09/17 09:17 Dose: 100 mg Heparin Sodium (Porcine) (Heparin -) 5,000 unit SQ Q8H-IV [facility] Last Admin: 04/09/17 09:16 Dose: 5,000 unit Hydralazine HCl (Apresoline -) 10 mg PO Q6H PRN PRN Reason: HYPERTENSION Labetalol HCl (Normodyne -) 300 mg PO BID [facility] Last Admin: 04/09/17 09:16 Dose: 300 mg Losartan Potassium (Cozaar -) 100 mg PO DAILY [facility] Last Admin: 04/09/17 09:17 Dose: 100 mg Nifedipine (Procardia Xl -) 60 mg PO BID [facility] Last Admin: 04/09/17 09:17 Dose: 60 mg Oxycodone HCl (Roxicodone -) 5 mg PO Q4H PRN PRN Reason: PAIN Last Admin: 04/03/17 11:25 Dose: 5 mg Polyethylene Glycol (Miralax (For Daily Use) -) 17 gm PO DAILY [facility] Last Admin: 04/09/17 09:18 Dose: 17 gm Ranitidine HCl (Zantac -) 150 mg PO DAILY [facility] Last Admin: 04/09/17 09:17 Dose: 150 mg Senna (Senna -) 1 tab PO HS [facility] Last Admin: 04/08/17 21:07 Dose: 1 tab Sevelamer Carbonate (Renvela -) 800 mg PO TIDCM [facility] Last Admin: 04/09/17 13:17 Dose: 800 mg Spironolactone (Aldactone -) 25 mg PO DAILY [facility] Last Admin: 04/09/17 09:17 Dose: 25 mg - Objective Vital Signs: Vital Signs Temperature 98.5 F 04/09/17 14:26 Pulse Rate 66 04/09/17 14:26 Respiratory Rate 20 04/09/17 08:00 Blood Pressure 158/74 04/09/17 14:26 O2 Sat by Pulse Oximetry (%) 98 04/09/17 08:00 Constitutional: Yes: Anxious, Mild Distress Eyes: Yes: Conjunctiva Clear HENT: Yes: Normocephalic Cardiovascular: Yes: Regular Rate and Rhythm, S1, S2 Respiratory: Yes: Regular, CTA Bilaterally Gastrointestinal: Yes: Normal Bowel Sounds, Soft Musculoskeletal: Yes: Back Pain Labs: CBC, BMP 04/08/17 08:49 04/08/17 08:49 INR, PTT INR 1.03 (0.82-1.09) 04/03/17 06:00 Problem List - Problems (1) Discitis of lumbosacral region Code(s): M46.47 - DISCITIS, UNSPECIFIED, LUMBOSACRAL REGION (2) Osteomyelitis Code(s): M86.9 - OSTEOMYELITIS, UNSPECIFIED (3) Rheumatoid arthritis involving both hips Code(s): M06.9 - RHEUMATOID ARTHRITIS, UNSPECIFIED (4) AVF (arteriovenous fistula) Code(s): I77.0 - ARTERIOVENOUS FISTULA, ACQUIRED (5) Anemia Code(s): D64.9 - ANEMIA, UNSPECIFIED (6) Diabetes Code(s): E11.9 - TYPE 2 DIABETES MELLITUS WITHOUT COMPLICATIONS (7) ESRD (end stage renal disease) Code(s): N18.6 - END STAGE RENAL DISEASE (8) Osteoarthritis Code(s): M19.90 - UNSPECIFIED OSTEOARTHRITIS, UNSPECIFIED SITE Assessment/Plan 76 y/o female with ESRD admitted with severe back pain, with focal lesions of the spine. Biopsy of the bone done, Culture and Histopathology results pending. Hemodialysis was given yesterday. Next HD on Monday. Concur with the current management. Will follow with you. Ursula Echavarria MD
[2017-04-09] MEDS: ATORVASTATIN CA 10 MG TABLET (FP) PO SCH (21:12)
[2017-04-09] MEDS: SENNOSIDES 8.6MG TABLET (FP) PO SCH (21:12)
[2017-04-10] MEDS: HEPARIN NA (PORCINE) 5,000 UNITS/ML 1ML VIAL SQ SCH ×3 (02:05→17:21)
[2017-04-10] MEDS: SEVELAMER CARBONATE 800 MG TAB (FP) PO SCH ×3 (08:08→17:21)
[2017-04-10] MEDS: LOSARTAN POTASSIUM 50 MG TABLET (FP) PO SCH (09:17)
[2017-04-10] MEDS: DOCUSATE SODIUM 100 MG CAPSULE (FP) PO SCH ×2 (09:17→21:48)
[2017-04-10] MEDS: SPIRONOLACTONE 25 MG TABLET (FP) PO SCH (09:17)
[2017-04-10] MEDS: LABETALOL HCL 100 MG TABLET (FP) PO SCH ×2 (09:20→21:47)
[2017-04-10] MEDS: NIFEdipine E.R. 30 MG TABLET (FP) PO SCH ×2 (09:21→21:48)
[2017-04-10] MEDS: RANITIDINE HCL 150 MG TABLET (FP) PO SCH (09:21)
--- NOTE | 2017-04-10 10:43 | PN ---
Progress Note (short form) - Note Progress Note: Renal Follow up for ESRD on HD Pt seen and examined at the bedside no acute complaints s/p dialysis on Monday denies any sob, chest pain, and pain, N/V has hip pain off and on Vital Signs Temperature 98.3 F 04/10/17 05:19 Pulse Rate 68 04/10/17 05:19 Respiratory Rate 20 04/10/17 05:19 Blood Pressure 168/78 04/10/17 05:19 O2 Sat by Pulse Oximetry (%) 99 04/09/17 21:00 Intake & Output 04/07/17 04/08/17 04/09/17 04/10/17 23:59 23:59 23:59 23:59 Intake Total 700 450 675 Output Total 0 0 Balance 700 450 675 Gen: NAD CVS: RRR Lungs: CTA Ext: No edema CBC, BMP 04/08/17 08:49 04/08/17 08:49 Laboratory Tests 04/08/17 08:49 Calcium 9.8 Phosphorus 2.6 D Current Medications Acetaminophen (Tylenol -) 650 mg PO Q4H PRN PRN Reason: FEVER OR PAIN Last Admin: 04/03/17 11:24 Dose: 650 mg Atorvastatin Calcium (Lipitor -) 10 mg PO HS [facility] Last Admin: 04/09/17 21:12 Dose: 10 mg Docusate Sodium (Colace -) 100 mg PO BID [facility] Last Admin: 04/10/17 09:17 Dose: 100 mg Heparin Sodium (Porcine) (Heparin -) 5,000 unit SQ Q8H-IV [facility] Last Admin: 04/10/17 02:05 Dose: 5,000 unit Hydralazine HCl (Apresoline -) 10 mg PO Q6H PRN PRN Reason: HYPERTENSION Labetalol HCl (Normodyne -) 300 mg PO BID [facility] Last Admin: 04/10/17 09:20 Dose: 300 mg Losartan Potassium (Cozaar -) 100 mg PO DAILY [facility] Last Admin: 04/10/17 09:17 Dose: 100 mg Nifedipine (Procardia Xl -) 60 mg PO BID [facility] Last Admin: 04/10/17 09:21 Dose: 60 mg Oxycodone HCl (Roxicodone -) 5 mg PO Q4H PRN PRN Reason: PAIN Last Admin: 04/03/17 11:25 Dose: 5 mg Polyethylene Glycol (Miralax (For Daily Use) -) 17 gm PO DAILY [facility] Last Admin: 04/09/17 09:18 Dose: 17 gm Ranitidine HCl (Zantac -) 150 mg PO DAILY [facility] Last Admin: 04/10/17 09:21 Dose: 150 mg Senna (Senna -) 1 tab PO HS [facility] Last Admin: 04/09/17 21:12 Dose: 1 tab Sevelamer Carbonate (Renvela -) 800 mg PO TIDCM [facility] Last Admin: 04/10/17 08:08 Dose: 800 mg Spironolactone (Aldactone -) 25 mg PO DAILY [facility] Last Admin: 04/10/17 09:17 Dose: 25 mg A/P 76 year old woman with PMhx of ESRD on HD (TTS at [facility]) x 5 years, Hypertension, Ovarian Ca who presented with hip pain and outpatient imaging studies consistent with joint effusion concerning for septic joint. #ESRD on HD next dialysis planned for tomorrow dose all meds for intermittent Hd #Degenerative Hip joint/Lumbar Osteomylitis Bone biopsy done, results pending #Hypertenion BP improved, continue Nifedipine, Labetalol, Aldactone, Losartan Goal BP < 140/90 #Renal Osteodystrophy Continue Renvela with meals Thanks Asa Smith DO Problem List - Problems (1) Diabetes Code(s): E11.9 - TYPE 2 DIABETES MELLITUS WITHOUT COMPLICATIONS (2) ESRD (end stage renal disease) Code(s): N18.6 - END STAGE RENAL DISEASE (3) Hypertension Code(s): I10 - ESSENTIAL (PRIMARY) HYPERTENSION
--- NOTE | 2017-04-10 11:41 | PN ---
Progress Note, Physician History of Present Illness: Feeling OK, pain on and off in back and hip. - Current Medication List Current Medications: Active Medications Acetaminophen (Tylenol -) 650 mg PO Q4H PRN PRN Reason: FEVER OR PAIN Last Admin: 04/03/17 11:24 Dose: 650 mg Atorvastatin Calcium (Lipitor -) 10 mg PO HS [facility] Last Admin: 04/09/17 21:12 Dose: 10 mg Docusate Sodium (Colace -) 100 mg PO BID [facility] Last Admin: 04/10/17 09:17 Dose: 100 mg Epoetin Kin (Epogen -) 4,000 units IVPUSH ONCE ONE Stop: 04/11/17 06:01 Heparin Sodium (Porcine) (Heparin -) 5,000 unit SQ Q8H-IV [facility] Last Admin: 04/10/17 02:05 Dose: 5,000 unit Hydralazine HCl (Apresoline -) 10 mg PO Q6H PRN PRN Reason: HYPERTENSION Labetalol HCl (Normodyne -) 300 mg PO BID [facility] Last Admin: 04/10/17 09:20 Dose: 300 mg Losartan Potassium (Cozaar -) 100 mg PO DAILY [facility] Last Admin: 04/10/17 09:17 Dose: 100 mg Nifedipine (Procardia Xl -) 60 mg PO BID [facility] Last Admin: 04/10/17 09:21 Dose: 60 mg Oxycodone HCl (Roxicodone -) 5 mg PO Q4H PRN PRN Reason: PAIN Last Admin: 04/03/17 11:25 Dose: 5 mg Polyethylene Glycol (Miralax (For Daily Use) -) 17 gm PO DAILY [facility] Last Admin: 04/09/17 09:18 Dose: 17 gm Ranitidine HCl (Zantac -) 150 mg PO DAILY [facility] Last Admin: 04/10/17 09:21 Dose: 150 mg Senna (Senna -) 1 tab PO HS [facility] Last Admin: 04/09/17 21:12 Dose: 1 tab Sevelamer Carbonate (Renvela -) 800 mg PO TIDCM [facility] Last Admin: 04/10/17 08:08 Dose: 800 mg Spironolactone (Aldactone -) 25 mg PO DAILY [facility] Last Admin: 04/10/17 09:17 Dose: 25 mg - Objective Vital Signs: Vital Signs Temperature 98.3 F 04/10/17 05:19 Pulse Rate 68 04/10/17 05:19 Respiratory Rate 20 04/10/17 05:19 Blood Pressure 168/78 04/10/17 05:19 O2 Sat by Pulse Oximetry (%) 99 04/09/17 21:00 Constitutional: Yes: No Distress, Calm Neck: Yes: Supple, Trachea Midline Cardiovascular: Yes: Regular Rate and Rhythm, S1, S2. No: Murmur Respiratory: Yes: Regular, CTA Bilaterally. No: Rales, Rhonchi, Wheezes Gastrointestinal: Yes: Normal Bowel Sounds, Soft. No: Distention, Tenderness Extremities: Yes: Other (left UE AVG) Edema: No Labs: CBC, BMP 04/08/17 08:49 04/08/17 08:49 INR, PTT INR 1.03 (0.82-1.09) 04/03/17 06:00 Assessment/Plan Current Active Problems Discitis of lumbosacral region (Acute) GERD (gastroesophageal reflux disease) (Acute) Osteomyelitis (Acute) Rheumatoid arthritis involving both hips (Acute) ESRD on dialysis -cont abx -awaiting biopsy results/ culture -if no osteomyelitis then ?d/c planning -ID following
[2017-04-10] MEDS: POLYETHYLENE GLYCOL 3350 119 GM BTL PO SCH (11:49)
[2017-04-10] MEDS ORDERED: PT OWN MED DRAWER 7, Y5N ONE (12:47)
--- NOTE | 2017-04-10 15:42 | PN ---
Progress Note, Physician History of Present Illness: patient post biopsy no issues - Current Medication List Current Medications: Active Medications Acetaminophen (Tylenol -) 650 mg PO Q4H PRN PRN Reason: FEVER OR PAIN Last Admin: 04/03/17 11:24 Dose: 650 mg Atorvastatin Calcium (Lipitor -) 10 mg PO HS [facility] Last Admin: 04/09/17 21:12 Dose: 10 mg Docusate Sodium (Colace -) 100 mg PO BID [facility] Last Admin: 04/10/17 09:17 Dose: 100 mg Epoetin Kin (Epogen -) 4,000 units IVPUSH ONCE ONE Stop: 04/11/17 06:01 Heparin Sodium (Porcine) (Heparin -) 5,000 unit SQ Q8H-IV [facility] Last Admin: 04/10/17 09:15 Dose: 5,000 unit Hydralazine HCl (Apresoline -) 10 mg PO Q6H PRN PRN Reason: HYPERTENSION Labetalol HCl (Normodyne -) 300 mg PO BID [facility] Last Admin: 04/10/17 09:20 Dose: 300 mg Losartan Potassium (Cozaar -) 100 mg PO DAILY [facility] Last Admin: 04/10/17 09:17 Dose: 100 mg Nifedipine (Procardia Xl -) 60 mg PO BID [facility] Last Admin: 04/10/17 09:21 Dose: 60 mg Oxycodone HCl (Roxicodone -) 5 mg PO Q4H PRN PRN Reason: PAIN Last Admin: 04/03/17 11:25 Dose: 5 mg Polyethylene Glycol (Miralax (For Daily Use) -) 17 gm PO DAILY [facility] Last Admin: 04/10/17 11:49 Dose: 17 gm Ranitidine HCl (Zantac -) 150 mg PO DAILY [facility] Last Admin: 04/10/17 09:21 Dose: 150 mg Senna (Senna -) 1 tab PO HS [facility] Last Admin: 04/09/17 21:12 Dose: 1 tab Sevelamer Carbonate (Renvela -) 800 mg PO TIDCM [facility] Last Admin: 04/10/17 11:48 Dose: 800 mg Spironolactone (Aldactone -) 25 mg PO DAILY [facility] Last Admin: 04/10/17 09:17 Dose: 25 mg - Objective Vital Signs: Vital Signs Temperature 98.8 F 04/10/17 10:00 Pulse Rate 72 04/10/17 10:00 Respiratory Rate 20 04/10/17 10:00 Blood Pressure 154/89 04/10/17 10:00 O2 Sat by Pulse Oximetry (%) 96 04/10/17 09:00 Constitutional: Yes: No Distress, Calm Cardiovascular: Yes: Regular Rate and Rhythm Respiratory: Yes: Regular, CTA Bilaterally Gastrointestinal: Yes: Normal Bowel Sounds, Soft Musculoskeletal: Yes: WNL Extremities: Yes: Other Neurological: Yes: Alert, Oriented Psychiatric: Yes: Alert, Oriented Labs: CBC, BMP 04/08/17 08:49 04/08/17 08:49 INR, PTT INR 1.03 (0.82-1.09) 04/03/17 06:00 Assessment/Plan Problem List - Problems (1) Avascular necrosis Code(s): M87.00 - IDIOPATHIC ASEPTIC NECROSIS OF UNSPECIFIED BONE (2) Diabetes Code(s): E11.9 - TYPE 2 DIABETES MELLITUS WITHOUT COMPLICATIONS (3) ESRD (end stage renal disease) Code(s): N18.6 - END STAGE RENAL DISEASE (4) Hyperlipidemia Code(s): E78.5 - HYPERLIPIDEMIA, UNSPECIFIED (5) Hypertension Code(s): I10 - ESSENTIAL (PRIMARY) HYPERTENSION (6) GERD (gastroesophageal reflux disease) Code(s): K21.9 - GASTRO-ESOPHAGEAL REFLUX DISEASE WITHOUT ESOPHAGITIS discitis of the spine r/o osteo plan still cx results not showing anything will treat patient as discitits/osteo patient should get 1 gm of vanco during dialysis total of 14 doses
[2017-04-10] MEDS: SENNOSIDES 8.6MG TABLET (FP) PO SCH (21:48)
[2017-04-10] MEDS: ATORVASTATIN CA 10 MG TABLET (FP) PO SCH (21:48)
[2017-04-11] MEDS: HEPARIN NA (PORCINE) 5,000 UNITS/ML 1ML VIAL SQ SCH ×3 (02:37→17:22)
[2017-04-11] MEDS ORDERED: PT OWN MED DRAWER 7, Y5N ONE (08:07)
[2017-04-11] MEDS: SEVELAMER CARBONATE 800 MG TAB (FP) PO SCH ×3 (08:08→17:21)
[2017-04-11 09:12] LABS: MCH 29.1 pg (25.7-33.7); MCHC 32.4 g/dl (32.0-36.0); MEAN CELL VOLUME 89.8 fl (80-96); MEAN PLT VOLUME 8.2 fl (7.5-11.1); PLATELET COUNT 192 K/MM3 (134-434); RDW 16.3 % (11.6-15.6); WHITE BLOOD COUNT 5.1 K/mm3 (4.0-10.0)
[2017-04-11] MEDS ORDERED: VANCOMYCIN 1,000 MG in SODIUM CHLORIDE 250 ML IVPB SCH (09:25)
[2017-04-11] MEDS ORDERED: VANCOMYCIN 1,000 MG in DEXTROSE 5%-WATER - 250 ML IVPB ONE (09:30)
[2017-04-11 09:36] LABS: ANION GAP 11 (8-16); CO2 31 mmol/L (21-32); GLUCOSE,RANDOM 119 mg/dL (74-106); PHOSPHOROUS 2.3 mg/dL (2.5-4.9)
[2017-04-11 09:38] LABS: CALCIUM 9.4 mg/dL (8.5-10.1); CREATININE 6.8 mg/dL (0.55-1.02); MAGNESIUM 2.3 mg/dL (1.8-2.4)
[2017-04-11] MEDS ORDERED: EPOETIN ALFA 2,000 UNITS/1 ML VIAL IVPUSH ONE (10:00)
--- NOTE | 2017-04-11 11:18 | PN ---
Progress Note (short form) - Note Progress Note: Renal Follow up for ESRD on HD Pt seen and examined during dialysis BP very high 190's/80's AVF with good flow, pressures WNL Goal UF is 3L pt without complaints getting Vanco with HD Vital Signs Temperature 98.1 F 04/11/17 05:33 Pulse Rate 56 L 04/11/17 10:50 Respiratory Rate 18 04/11/17 10:50 Blood Pressure 181/79 04/11/17 10:50 O2 Sat by Pulse Oximetry (%) 95 04/10/17 20:37 Intake & Output 04/08/17 04/09/17 04/10/17 04/11/17 23:59 23:59 23:59 23:59 Intake Total 450 675 350 Output Total 0 Balance 450 675 350 Gen: NAD CVS: RRR Lungs: CTA Ext: No edema CBC, BMP 04/11/17 08:30 04/11/17 08:30 Laboratory Tests 04/11/17 08:30 Calcium 9.4 Phosphorus 2.3 L Magnesium 2.3 Current Medications Acetaminophen (Tylenol -) 650 mg PO Q4H PRN PRN Reason: FEVER OR PAIN Last Admin: 04/03/17 11:24 Dose: 650 mg Atorvastatin Calcium (Lipitor -) 10 mg PO HS [facility] Last Admin: 04/10/17 21:48 Dose: 10 mg Docusate Sodium (Colace -) 100 mg PO BID [facility] Last Admin: 04/10/17 21:48 Dose: 100 mg Heparin Sodium (Porcine) (Heparin -) 5,000 unit SQ Q8H-IV [facility] Last Admin: 04/11/17 02:37 Dose: 5,000 unit Hydralazine HCl (Apresoline -) 10 mg PO Q6H PRN PRN Reason: HYPERTENSION Vancomycin HCl 1,000 mg/ (Sodium Chloride) 250 mls @ 166.667 mls/hr IVPB TuThSa [facility] Stop: 05/09/17 10:54 Labetalol HCl (Normodyne -) 300 mg PO BID [facility] Last Admin: 04/10/17 21:47 Dose: 300 mg Losartan Potassium (Cozaar -) 100 mg PO DAILY [facility] Last Admin: 04/10/17 09:17 Dose: 100 mg Nifedipine (Procardia Xl -) 60 mg PO BID [facility] Last Admin: 04/10/17 21:48 Dose: 60 mg Oxycodone HCl (Roxicodone -) 5 mg PO Q4H PRN PRN Reason: PAIN Last Admin: 04/03/17 11:25 Dose: 5 mg Polyethylene Glycol (Miralax (For Daily Use) -) 17 gm PO DAILY [facility] Last Admin: 04/10/17 11:49 Dose: 17 gm Ranitidine HCl (Zantac -) 150 mg PO DAILY [facility] Last Admin: 04/10/17 09:21 Dose: 150 mg Senna (Senna -) 1 tab PO HS [facility] Last Admin: 04/10/17 21:48 Dose: 1 tab Sevelamer Carbonate (Renvela -) 800 mg PO TIDCM [facility] Last Admin: 04/11/17 08:08 Dose: 800 mg Spironolactone (Aldactone -) 25 mg PO DAILY [facility] Last Admin: 04/10/17 09:17 Dose: 25 mg A/P 76 year old woman with PMhx of ESRD on HD (TTS at [facility]) x 5 years, Hypertension, Ovarian Ca who presented with hip pain and outpatient imaging studies consistent with joint effusion concerning for septic joint. #ESRD on HD Pt is tolerating dialysis well UF goal is 3L Access with good function #Degenerative Hip joint/Lumbar Osteomylitis Bone biopsy done, results pending started on IV Vanco as per ID to get 14 doses with HD, will make arrangements to continue as outpatient with HD unit #Hypertenion BP improved, continue Nifedipine, Labetalol, Aldactone, Losartan Goal BP < 140/90 did not get BP meds this am, asked HD nurse to get and give now #Renal Osteodystrophy Continue Renvela with meals Thanks Asa Smith DO Problem List - Problems (1) Diabetes Code(s): E11.9 - TYPE 2 DIABETES MELLITUS WITHOUT COMPLICATIONS (2) ESRD (end stage renal disease) Code(s): N18.6 - END STAGE RENAL DISEASE (3) Hypertension Code(s): I10 - ESSENTIAL (PRIMARY) HYPERTENSION
[2017-04-11] MEDS: LABETALOL HCL 100 MG TABLET (FP) PO SCH (11:33)
[2017-04-11] MEDS: SPIRONOLACTONE 25 MG TABLET (FP) PO SCH (11:33)
[2017-04-11] MEDS: LOSARTAN POTASSIUM 50 MG TABLET (FP) PO SCH (11:33)
[2017-04-11] MEDS: NIFEdipine E.R. 30 MG TABLET (FP) PO SCH (11:33)
[2017-04-11] MEDS: RANITIDINE HCL 150 MG TABLET (FP) PO SCH (12:33)
[2017-04-11] MEDS: POLYETHYLENE GLYCOL 3350 119 GM BTL PO SCH (12:34)
[2017-04-11] MEDS: DOCUSATE SODIUM 100 MG CAPSULE (FP) PO SCH (12:34)
[2017-04-11 13:03] LABS: CREATININE 2.3 mg/dL (0.55-1.02)
--- NOTE | 2017-04-11 13:59 | DS ---
Physical Examination Vital Signs: Vital Signs Temperature 36.7 C 04/11/17 05:33 Pulse Rate 61 04/11/17 12:20 Respiratory Rate 18 04/11/17 12:20 Blood Pressure 183/85 04/11/17 12:20 O2 Sat by Pulse Oximetry (%) 95 04/10/17 20:37 Constitutional: Yes: Well Nourished, No Distress, Calm Cardiovascular: Yes: Regular Rate and Rhythm. No: Gallop, Murmur, Rub Respiratory: Yes: Regular, CTA Bilaterally. No: Rales, Rhonchi, Wheezes Gastrointestinal: Yes: Normal Bowel Sounds, Soft. No: Distention, Tenderness Extremities: Yes: WNL Edema: No Labs: CBC, BMP 04/11/17 08:30 04/11/17 12:00 Discharge Summary Reason For Visit: SEPTIC ARTHRITIS Current Active Problems Discitis of lumbosacral region (Acute) GERD (gastroesophageal reflux disease) (Acute) Osteomyelitis (Acute) Rheumatoid arthritis involving both hips (Acute) Hospital Course: (1) Lumbrosacral discitis with destruction (2) Rheumatoid arthritis of the R hip (3) Diabetes Code(s): E11.9 - TYPE 2 DIABETES MELLITUS WITHOUT COMPLICATIONS (4) ESRD (end stage renal disease) Code(s): N18.6 - END STAGE RENAL DISEASE (5) Hyperlipidemia Code(s): E78.5 - HYPERLIPIDEMIA, UNSPECIFIED (6) Hypertension Code(s): I10 - ESSENTIAL (PRIMARY) HYPERTENSION (7) GERD (gastroesophageal reflux disease) Code(s): K21.9 - GASTRO-ESOPHAGEAL REFLUX DISEASE WITHOUT ESOPHAGITIS Ms Crain is a very pleasant 76 year old female who was sent in after being found to have lumbrosacreal discitis with destruction on MRI. She was seen by ID as there was concern for possible osteomyelitis. A repeat MRI was performed which was unchanged. After multiple attempts biopsy was obtained. Currently awaiting results but patient is stable. Will have vancomycin with HD for 14 doses and close follow up as an outpatient. She also was hypertensive and aldactone was added as well. There was destruction of her right hip and she will have outpatient follow up with orthopedics as well. She is currently stable for discharge home. 32 minutes spent in preparation of this discharge Condition: Good - Instructions Diet, Activity, Other Instructions: resume previous diet and activity Referrals: Gautam Driscoll MD [Primary Care Provider] - Castro Huerta MD [Staff Physician] - Disposition: HOME - Home Medications Comprehensive Discharge Medication List: Ambulatory Orders Amlodipine Besylate [Norvasc -] 10 mg PO DAILY 08/02/14 Losartan Potassium 100 mg PO DAILY 08/02/14 Ranitidine HCl 150 mg PO BID #0 08/06/14 Atorvastatin Ca [Lipitor] 10 mg PO HS 03/29/17 Labetalol HCl [Normodyne -] 300 mg PO BID 03/29/17 Sevelamer Carbonate [Renvela -] 800 mg PO TID 03/29/17 Docusate Sodium [Colace -] 100 mg PO BID #60 cap 03/30/17 Oxycodone HCl [Roxicodone -] 5 mg PO Q4H PRN #30 tablet MDD 30mg 03/30/17 Polyethylene Glycol 3350 [Miralax 119 gm Btl -] 17 gm PO DAILY #1 bottle
--- NOTE | 2017-04-11 14:25 | PN ---
Progress Note, Physician History of Present Illness: doing well no complaints - Current Medication List Current Medications: Active Medications Acetaminophen (Tylenol -) 650 mg PO Q4H PRN PRN Reason: FEVER OR PAIN Last Admin: 04/03/17 11:24 Dose: 650 mg Atorvastatin Calcium (Lipitor -) 10 mg PO HS [facility] Last Admin: 04/10/17 21:48 Dose: 10 mg Docusate Sodium (Colace -) 100 mg PO BID [facility] Last Admin: 04/11/17 12:34 Dose: 100 mg Heparin Sodium (Porcine) (Heparin -) 5,000 unit SQ Q8H-IV [facility] Last Admin: 04/11/17 12:31 Dose: Not Given Hydralazine HCl (Apresoline -) 10 mg PO Q6H PRN PRN Reason: HYPERTENSION Vancomycin HCl 1,000 mg/ (Sodium Chloride) 250 mls @ 166.667 mls/hr IVPB TuTa [facility] [place] Stop: 05/09/17 10:54 Labetalol HCl (Normodyne -) 300 mg PO BID [facility] [place] Last Admin: 04/11/17 11:33 Dose: 300 mg Losartan Potassium (Cozaar -) 100 mg PO DAILY [facility] Last Admin: 04/11/17 11:33 Dose: 100 mg Nifedipine (Procardia Xl -) 60 mg PO BID [facility] [place] Last Admin: 04/11/17 11:33 Dose: 60 mg Oxycodone HCl (Roxicodone -) 5 mg PO Q4H PRN PRN Reason: PAIN Last Admin: 04/03/17 11:25 Dose: 5 mg Polyethylene Glycol (Miralax (For Daily Use) -) 17 gm PO DAILY [facility] Last Admin: 04/11/17 12:34 Dose: 17 gm Ranitidine HCl (Zantac -) 150 mg PO DAILY [facility] Last Admin: 04/11/17 12:33 Dose: 150 mg Senna (Senna -) 1 tab PO HS [facility] [place] Last Admin: 04/10/17 21:48 Dose: 1 tab Sevelamer Carbonate (Renvela -) 800 mg PO TIDCM [facility] [place] Last Admin: 04/11/17 12:33 Dose: 800 mg Spironolactone (Aldactone -) 25 mg PO DAILY [facility] Last Admin: 04/11/17 11:33 Dose: 25 mg - Objective Vital Signs: Vital Signs Temperature 98.1 F 04/11/17 05:33 Pulse Rate 61 04/11/17 12:20 Respiratory Rate 18 04/11/17 12:20 Blood Pressure 183/85 04/11/17 12:20 O2 Sat by Pulse Oximetry (%) 95 04/10/17 20:37 Constitutional: Yes: No Distress, Calm Cardiovascular: Yes: Regular Rate and Rhythm Respiratory: Yes: Regular, CTA Bilaterally Gastrointestinal: Yes: Normal Bowel Sounds, Soft Musculoskeletal: Yes: Other Extremities: Yes: Other Neurological: Yes: Alert, Oriented Psychiatric: Yes: Alert, Oriented Labs: CBC, BMP 04/11/17 08:30 04/11/17 12:00 INR, PTT INR 1.03 (0.82-1.09) 04/03/17 06:00 Assessment/Plan Problem List - Problems (1) Avascular necrosis Code(s): M87.00 - IDIOPATHIC ASEPTIC NECROSIS OF UNSPECIFIED BONE (2) Diabetes Code(s): E11.9 - TYPE 2 DIABETES MELLITUS WITHOUT COMPLICATIONS (3) ESRD (end stage renal disease) Code(s): N18.6 - END STAGE RENAL DISEASE (4) Hyperlipidemia Code(s): E78.5 - HYPERLIPIDEMIA, UNSPECIFIED (5) Hypertension Code(s): I10 - ESSENTIAL (PRIMARY) HYPERTENSION (6) GERD (gastroesophageal reflux disease) Code(s): K21.9 - GASTRO-ESOPHAGEAL REFLUX DISEASE WITHOUT ESOPHAGITIS discitis of the spine r/o osteo plan still cx results not showing anything will treat patient as discitits/osteo patient should get 1 gm of vanco during dialysis total of 14 doses
[2017-04-11 14:46] VITALS: BP 160/74; PULSE 64; TEMP 97.7
== END 2017-04-11 18:02 | disposition home or self-care (01) | DRG 564 ==
LOC: JER 13:45 → JERBED 16:39 → UNDOADMOB 16:39 → INTOOBSV 16:39 → JERBED 19:35 → J6S 19:35 → JERBED 03-30 12:08 → J6S 03-30 12:08 → OBSVTOIN 04-03 12:10
PROVIDERS: ADMIT Internal Medicine; ATTEND Internal Medicine
PROC: 5A1D60Z (ICD-10-PCS; 2017-04-04)
PROC: 0SB Lower Joints, Excision (ICD-10-PCS; principal; 2017-04-06)
PROC: 0S923ZX Drainage of Lumbar Vertebral Disc, Percutaneous Approach, Diagnostic (ICD-10-PCS; 2017-04-06)
DX: M24.7 Protrusio acetabuli (principal); N18.6 End stage renal disease; M87.00 Idiopathic aseptic necrosis of unspecified bone; I12.0 Hypertensive chronic kidney disease with stage 5 chronic kidney disease or end stage renal disease; E87.1 Hypo-osmolality and hyponatremia; M46.26 Osteomyelitis of vertebra, lumbar region; M16.11 Unilateral primary osteoarthritis, right hip; M46.47 Discitis, unspecified, lumbosacral region; E11.22 Type 2 diabetes mellitus with diabetic chronic kidney disease; E78.5 Hyperlipidemia, unspecified; K21.9 Gastro-esophageal reflux disease without esophagitis; M06.851 Other specified rheumatoid arthritis, right hip; E11.69 Type 2 diabetes mellitus with other specified complication; Z85.43 Personal history of malignant neoplasm of ovary; Z96.651 Presence of right artificial knee joint; Z90.721 Acquired absence of ovaries, unilateral; Z99.2 Dependence on renal dialysis
CPT/HCPCS: 20225; 36415; 71010-TC; 72148-TC; 73721-RT-TC; 76098-TC; 80048; 80053; 82565; 83735; 84100; 84520; 85025; 85027; 85610; 85651; 85730; 86140; 86704; 86706; 86708; 86803; 87040; 87070; 87075; 87102; 87116; 87205; 87206; 87210; 87340; 87899; 93005; 93010; 97116-GP; 97161-GP; 99285-25; G0378; J0885; J1644

== ENCOUNTER 2018-07-18 16:10 | Inpatient (IN) | payer OTHER ==
--- NOTE | 2018-07-18 16:29 | PDOC ---
Rapid Medical Evaluation Medical Evaluation: Allergies Allergy/AdvReac Type Severity Reaction Status Date / Time No Known Drug Allergies Allergy Verified 03/29/17 13:49 07/18/18 16:18 I have performed a brief in-person evaluation of this patient. The patient presents with a chief complaint of: Currently on bactrim for L foot wound, ecoli on cx per daughter, here because wound more painful and discolored , no f/c. H/o diet controlled DM, ESRD via fistula (T/R/S), up to date w/ HD Pertinent physical exam findings:stable, defer to ED provider I have ordered the following:labs/xr The patient will proceed to the ED for further evaluation Discharge Disposition - Diagnosis Foot ulcer Qualifiers: Laterality: left Non-pressure ulcer stage: unspecified non-pressure ulcer stage Qualified Code(s): L97.529 - Non-pressure chronic ulcer of other part of left foot with unspecified severity - Referrals - Patient Instructions - Post Discharge Activity
[2018-07-18] MEDS ORDERED: VANCOMYCIN 1,000 MG in DEXTROSE 5%-WATER - 250 ML IVPB ONE (17:29)
[2018-07-18] MEDS ORDERED: PIPERACILLIN/TAZOB 3.375 GM 3.375 GM in DEXTROSE 5%-WATER - 50 ML IVPB SCH (17:30)
[2018-07-18 17:42] LABS: BASO % 0.7 % (0-2.0); EOS % 1.6 % (0-4.5); HEMATOCRIT 27.4 % (32.4-45.2); HEMOGLOBIN 9.6 GM/dL (10.7-15.3); LYMPH % 12.5 % (8-40); MCH 31.5 pg (25.7-33.7); MEAN CELL VOLUME 89.9 fl (80-96); MEAN PLT VOLUME 7.8 fl (7.5-11.1); MONO % 8.2 % (3.8-10.2); PLATELET COUNT 291 K/MM3 (134-434); RBC 3.05 M/mm3 (3.60-5.2); RDW 16.9 % (11.6-15.6); WHITE BLOOD COUNT 9.7 K/mm3 (4.0-10.0)
[2018-07-18] MEDS ORDERED: PIPERACILLIN/TAZOB 3.375 GM 3.375 GM/50 ML BAG IVPB ONE (17:57)
[2018-07-18 18:06] LABS: ALBUMIN 2.6 g/dl (3.4-5.0); ALK PHOS 115 U/L (45-117); ANION GAP 12 MMOL/L (8-16); BILIRUBIN,TOTAL 2.3 mg/dL (0.2-1); BLOOD UREA NITROGEN 38 mg/dL (7-18); CALCIUM 8.9 mg/dL (8.5-10.1); CHLORIDE 98 mmol/L (98-107); CO2 29 mmol/L (21-32); GLUCOSE,RANDOM 113 mg/dL (74-106); POTASSIUM 3.8 mmol/L (3.5-5.1); SGOT/AST 34 U/L (15-37); SGPT/ALT 22 U/L (13-61); SODIUM 139 mmol/L (136-145); TOT PROT 7.1 g/dl (6.4-8.2)
--- NOTE | 2018-07-18 18:23 | PDOC ---
History of Present Illness - General Chief Complaint: Wound Stated Complaint: L. 4th/5th toe wound Time Seen by Provider: 07/18/18 16:32 History Source: Patient Exam Limitations: No Limitations - History of Present Illness Initial Comments: 07/18/18 17:18 77-year-old female with history of end-stage renal disease and diet-controlled diabetes receives dialysis Monday and Monday presents to the emergency room with a nonhealing left fourth toe wound achievement on Bactrim for the past 13 days by her staff counselor. When her daughter came to visit today and patient had complaints of toe pain with skin discoloration along with home health aid stating her toe was black the daughter called the staff counselor who referred her to the emergency room for further evaluation. Patient denies fever , chills but states is unable to feel the left fourth toe tip and has a throbbing pain to the base of her toe Timing/Duration: getting worse Severity: moderate Associated Symptoms: reports: other Past History - Travel Traveled outside of the country in the last 30 days: No Close contact w/someone who was outside of country & ill: No - Past Medical History Allergies/Adverse Reactions: Allergies Allergy/AdvReac Type Severity Reaction Status Date / Time No Known Drug Allergies Allergy Verified 07/18/18 16:35 Home Medications: Ambulatory Orders Amlodipine Besylate [Norvasc -] 10 mg PO DAILY 08/02/14 Atorvastatin Ca [Lipitor] 10 mg PO HS 03/29/17 Labetalol HCl [Normodyne -] 300 mg PO DAILY 03/29/17 Sevelamer Carbonate [Renvela -] 800 mg PO TID 03/29/17 Vancomycin 1,000 mg IVPB TuThSa vial 04/11/17 Anemia: Yes Asthma: No Cancer: No Cardiac Disorders: Yes (HTN) CVA: No COPD: No CHF: No Dementia: No Diabetes: Yes Dialysis: Yes () GI Disorders: No Disorders: No HTN: Yes (ESRD) Hypercholesterolemia: Yes Liver Disease: No Seizures: No Thyroid Disease: No - Surgical History Abdominal Surgery: No Cholecystectomy: Yes Lung Surgery: No Orthopedic Surgery: Yes (RT KNEE REPLACEMENT) - Immunization History Immunization Up to Date: Yes - Suicide/Smoking/Psychosocial Hx Smoking History: Never smoked Have you smoked in the past 12 months: No Number of Cigarettes Smoked Daily: 0 Information on smoking cessation initiated: No Hx Alcohol Use: No Drug/Substance Use Hx: No Substance Use Type: None Hx Substance Use Treatment: No Patient Lives Alone: No Lives with/in: [employer] Review of Systems - Review of Systems Able to Perform ROS?: Yes Constitutional: No: Symptoms Reported HEENTM: No: Symptoms Reported Respiratory: No: Symptoms reported Cardiac (ROS): No: Symptoms Reported Musculoskeletal: Yes: Joint Pain (lt 4 th toe) Integumentary: Yes: Change in Color Neurological: Yes: Numbness (to lt 4th toe) *Physical Exam - Vital Signs Last Vital Signs Temp Pulse Resp BP Pulse Ox 97.5 F L 63 16 112/59 L 100 07/18/18 16:29 07/18/18 16:29 07/18/18 16:29 07/18/18 16:29 07/18/18 16:29 - Physical Exam General Appearance: Yes: Nourished, Appropriately Dressed. No: Apparent Distress HEENT: positive: EOMI, NI, TMs Normal, Pharynx Normal. negative: Pale Conjunctivae Neck: positive: Supple Respiratory/Chest: positive: Lungs Clear, Normal Breath Sounds. negative: Respiratory Distress, Accessory Muscle Use Cardiovascular: positive: Regular Rhythm, Regular Rate. negative: Murmur Integumentary: positive: Other (Noted hardened black eschar to the left toe generally. Surrounding skin hyperpigmented) Neurologic: positive: Normal Mood/Affect Moderate Sedation - Procedure Monitoring Vital Signs: Procedure Monitoring Vital Signs Temperature 97.5 F L 07/18/18 16:29 Pulse Rate 63 07/18/18 16:29 Respiratory Rate 16 07/18/18 16:29 Blood Pressure 112/59 L 07/18/18 16:29 O2 Sat by Pulse Oximetry (%) 100 07/18/18 16:29 ED Treatment Course - LABORATORY CBC & Chemistry Diagram: 07/20/18 06:00 07/19/18 06:30 - ADDITIONAL ORDERS Additional order review: Laboratory Results 07/18/18 07/18/18 17:20 17:20 Sodium 139 Potassium 3.8 Chloride 98 Carbon Dioxide 29 Anion Gap 12 BUN 38 H Creatinine 4.0 H Creat Clearance w eGFR 10.83 Random Glucose 113 H Calcium 8.9 Total Bilirubin 2.3 H AST 34 ALT 22 Alkaline Phosphatase 115 C-Reactive Protein 3.6 H Total Protein 7.1 Albumin 2.6 L 07/18/18 17:20 RBC 3.05 L MCV 89.9 MCHC 35.0 RDW 16.9 H MPV 7.8 Neutrophils % 77.0 D Lymphocytes % 12.5 D Monocytes % 8.2 Eosinophils % 1.6 Basophils % 0.7 - RADIOLOGY Radiology Studies Ordered: Category Date Time Status LOWER EXTREMITY CT W/O CONTR [CT] Stat CT Scan 07/18/18 17:34 Ordered Medical Decision Making - Medical Decision Making 07/18/18 17:21 Chief complaint: Worsening left fourth toe wound despite being on Bactrim for the past 13 days. Patient now with dark blackened hard skin to the area. Patient with diabetes and end-stage renal disease. Patient last dialysis was yesterday. Exam: Noted generalized blackened eschar to left fourth toe. Plan: Labs, imaging including a lower extremity CT, IV Zosyn and Vanco. Pt concerning for gangrene. Will place consult to hospitalist for admission. 07/18/18 18:24 Laboratory Tests 07/18/18 07/18/18 07/18/18 17:20 17:20 17:20 WBC 9.7 Hgb 9.6 L Hct 27.4 L RDW 16.9 H Plt Count 291 D Absolute Neuts (auto) 7.5 Neutrophils % 77.0 D Monocytes % 8.2 Nucleated RBC % 1 H ESR Pending Sodium Potassium Carbon Dioxide Anion Gap BUN Creatinine Random Glucose Calcium Total Bilirubin AST ALT Alkaline Phosphatase C-Reactive Protein 3.6 H Total Protein Albumin 07/18/18 17:20 WBC Hgb Hct RDW Plt Count Absolute Neuts (auto) Neutrophils % Monocytes % Nucleated RBC % ESR Sodium 139 Potassium 3.8 Carbon Dioxide 29 Anion Gap 12 BUN 38 H Creatinine 4.0 H Random Glucose 113 H Calcium 8.9 Total Bilirubin 2.3 H AST 34 ALT 22 Alkaline Phosphatase 115 C-Reactive Protein Total Protein 7.1 Albumin 2.6 L 07/18/18 18:38 Spoke to hospitalist and will admit to inpt m/s *DC/Admit/Observation/Transfer Diagnosis at time of Disposition: Chronic kidney disease, stage 5, kidney failure, Failure of outpatient treatment Foot ulcer Qualifiers: Laterality: left Non-pressure ulcer stage: unspecified non-pressure ulcer stage Qualified Code(s): L97.529 - Non-pressure chronic ulcer of other part of left foot with unspecified severity - Discharge Dispostion Decision to Admit order: Yes - Referrals - Patient Instructions - Post Discharge Activity
[2018-07-18] MEDS ORDERED: VANCOMYCIN 1 GRAM (PRE-DOCKED) 1,000 MG/250 ML BAG IVPB ONE (18:43)
[2018-07-18] MEDS ORDERED: SEVELAMER CARBONATE 800 MG TAB (FP) PO SCH (19:00)
[2018-07-18] MEDS ORDERED: ACETAMINOPHEN 325 MG TABLET (FP) PO PRN (20:31)
--- NOTE | 2018-07-18 21:15 | HP ---
CHIEF COMPLAINT: Left foot wound/pain PCP: Americo HISTORY OF PRESENT ILLNESS: 77 yo Female with PMH of ESRD (HD on ,,), NIDDM, HTN, HLD, admitted with Left 4th toe wound and pain for 1 month. She states that she has been seen by her vehicle body maker who began oral bactrim about two weeks ago which has not led to any improvement. Her daughter visited her today and noted the wound to look worse than it had and her mother was complaining of pain so she called the vehicle body maker who recommended going to the ED for evaluation and likely IV Abx. She also states that for about one month she has had small ulcerations form in the skin on her arms and some on her legs. She does not know what is causing them and initially attributed them to her diet. She states they are nonpruritic and mostly nonpainful and says they occur and heal randomly with multiple ulcers in different stages of healing. She currently denies any fevers, chills, SOB, chest pain, n/v/d. Of note she states she has been on dialysis for about 6 years or so but only recently had her AVF created in the left arm in November or so of this year. She thinks that a port was used for her dialysis prior to the AVF. She endorses occasional urine production. ER course was notable for: (1) Vanc/Zosyn (2) X-ray, CT noted gas/air consistent with gas forming infection (3) Recent Travel: none PAST MEDICAL HISTORY: ESRD (HD on ,,S), NIDDM, HTN, HLD PAST SURGICAL HISTORY: Cholecystectomy, R knee replacement Social History: Smoking: Denies ever Alcohol: Rare Drugs: Denies Family History: Allergies No Known Drug Allergies Allergy (Verified 07/18/18 16:35) HOME MEDICATIONS: Home Medications Medication Instructions Recorded Amlodipine Besylate [Norvasc -] 10 mg PO DAILY 08/02/14 Atorvastatin Ca [Lipitor] 10 mg PO HS 03/29/17 Labetalol HCl [Normodyne -] 300 mg PO DAILY 03/29/17 Sevelamer Carbonate [Renvela -] 800 mg PO TID 03/29/17 Vancomycin 1,000 mg IVPB TuThSa vial 04/11/17 REVIEW OF SYSTEMS CONSTITUTIONAL: Absent: fever, chills, diaphoresis, generalized weakness, malaise, loss of appetite, weight change HEENT: Absent: rhinorrhea, nasal congestion, throat pain, throat swelling, difficulty swallowing, mouth swelling, ear pain, eye pain, visual changes CARDIOVASCULAR: Absent: chest pain, syncope, palpitations, irregular heart rate, lightheadedness , peripheral edema RESPIRATORY: Absent: cough, shortness of breath, dyspnea with exertion, orthopnea, wheezing, stridor, hemoptysis GASTROINTESTINAL: Absent: abdominal pain, abdominal distension, nausea, vomiting, diarrhea, constipation, melena, hematochezia GENITOURINARY: Absent: dysuria, frequency, urgency, hesitancy, hematuria, flank pain, genital pain MUSCULOSKELETAL: Absent: myalgia, arthralgia, joint swelling, back pain, neck pain SKIN: numerous skin ulcerations, wound left fourth toe Absent: rash, itching, pallor HEMATOLOGIC/IMMUNOLOGIC: Absent: easy bleeding, easy bruising, lymphadenopathy, frequent infections ENDOCRINE: Absent: unexplained weight gain, unexplained weight loss, heat intolerance, cold intolerance NEUROLOGIC: Absent: headache, focal weakness or paresthesias, dizziness, unsteady gait, seizure, mental status changes, bladder or bowel incontinence PSYCHIATRIC: Absent: anxiety, depression, suicidal or homicidal ideation, hallucinations. PHYSICAL EXAMINATION Vital Signs - 24 hr 07/18/18 16:29 Temperature 97.5 F L Pulse Rate 63 Respiratory 16 Rate Blood Pressure 112/59 L O2 Sat by Pulse 100 Oximetry (%) GENERAL: A&O, no acute distress HEAD: Normocephalic, atraumatic. EYES: PERRL, no scleral icterus EARS, NOSE, THROAT: oropharynx clear without exudates. Moist mucous membranes. NECK: supple without lymphadenopathy LUNGS: CTA b/l, no crackles or wheezes HEART: Regular rate and rhythm, normal S1 and S2 without murmur ABDOMEN: Soft, nontender to palpation, normoactive bowel sounds MUSCULOSKELETAL: No bony deformities or tenderness. EXTREMITIES: 1+ palpable pulses in b/l DP, warm, well-perfused. No peripheral edema. Eschar surrounding left 4th toe and extending proximally into the distal foot. No fluctuance noted, malodorous NEUROLOGICAL: Cranial nerves II-XII grossly intact. Normal speech. PSYCHIATRIC: Cooperative. Good eye contact. Appropriate mood and affect. SKIN: Warm, dry, no rashes or lesions noted Laboratory Results - last 24 hr 07/18/18 07/18/18 07/18/18 17:20 17:20 17:20 WBC 9.7 RBC 3.05 L Hgb 9.6 L Hct 27.4 L MCV 89.9 MCH 31.5 MCHC 35.0 RDW 16.9 H Plt Count 291 D MPV 7.8 Absolute Neuts (auto) 7.5 Neutrophils % 77.0 D Lymphocytes % 12.5 D Monocytes % 8.2 Eosinophils % 1.6 Basophils % 0.7 Nucleated RBC % 1 H ESR 94 H Sodium Potassium Chloride Carbon Dioxide Anion Gap BUN Creatinine Creat Clearance w eGFR Random Glucose Calcium Total Bilirubin AST ALT Alkaline Phosphatase C-Reactive Protein 3.6 H Total Protein Albumin 07/18/18 17:20 WBC RBC Hgb Hct MCV MCH MCHC RDW Plt Count MPV Absolute Neuts (auto) Neutrophils % Lymphocytes % Monocytes % Eosinophils % Basophils % Nucleated RBC % ESR Sodium 139 Potassium 3.8 Chloride 98 Carbon Dioxide 29 Anion Gap 12 BUN 38 H Creatinine 4.0 H Creat Clearance w eGFR 10.83 Random Glucose 113 H Calcium 8.9 Total Bilirubin 2.3 H AST 34 ALT 22 Alkaline Phosphatase 115 C-Reactive Protein Total Protein 7.1 Albumin 2.6 L ASSESSMENT/PLAN: 77 yo Female with PMH of ESRD (HD on ,,), NIDDM, HTN, HLD, admitted with Left 4th toe wound and pain for 1 month. Necrotic left 4th Toe secondary to likely Gas forming infection, rule out osteomyelitis -Pt failed outpatient therapy with Bactrim -CT scan noted with air in the soft tissue surrounding toe -Podiatry consulted for evaluation of Gas Gangrene -Discussed case with podiatry, unable to evaluate tonight but will plan for possible OR tomorrow -Vascular surgery consulted, discussed with Dr. Rodriguez -Pt currently stable, afebrile with no white count and palpable pulses -Does not feel this is emergent for OR or immediate evaluation at this time, will see the pt first thing in the morning -Will monitor for any signs of rapidly worsening infection/clinical decline and recall if necessary -ID consulted -WBC count 9.7, Afebrile -Vanc/Zosyn/Clinda -NPO for OR likely in AM -Stat Lactic Acid pending -ESR 94, CRP 3.6 ESRD on HD -HD on ,, -Pt will require HD tomorrow -Renally dose Abx -Nephrology consulted NIDDM -BGMs ACHS -A1C -Insulin Sliding Scale for glycemic control HTN -Hold home amlodipine for now with somewhat low b.p. -Restart as needed HLD -Lipitor 10 mg PO HS Anemia -Stable, likely secondary to ESRD -Will monitor H/H DVT Prophylaxis -Heparin 5000 units SQ TID FEN -Fluids: NS @ 50 cc/hr, monitor for fluid overload -Electrolytes: No electrolyte abnormalities, BMP in AM -Nutrition: NPO Disposition Med/Surg Visit type - Emergency Visit Emergency Visit: Yes ED Registration Date: 07/18/18 Care time: The patient presented to the Emergency Department on the above date and was hospitalized for further evaluation of their emergent condition. - New Patient This patient is new to me today: Yes Date on this admission: 07/23/18 - Critical Care Critical Care patient: No
--- NOTE | 2018-07-18 21:16 | PN ---
Teaching Attending Note Name of Resident: Max Miller ATTENDING PHYSICIAN STATEMENT I saw and evaluated the patient. I reviewed the resident's note and discussed the case with the resident. I agree with the resident's findings and plan as documented. SUBJECTIVE: Seen and examined; please refer to the resident note for further information. Briefly, this is a 77 y/o AAF with a PMH significant for ESRD on HD (TTS, LUE AVF, dry weight not documented) presents with a 4th toe wound that has been resistent to Bactrim tx (got from water main pipe layer earlier this month). She has been compliant with meds. Unfortunately she is a poor historian and family isn't present at the time of our encounter so it is difficult to delineate the trajectory of her illness. She admits to pain in the area that is worse with movement and palpation. Our service discussed the case with podiatry and surgery who will see the patient in the AM. Air seen on CT suspicious for gas- forming infection. Admit to medicine on tele given the risk of decompensation. 10 sys ROS done and negative aside from HPI PMH and PSH reviewed FH asked and noncontributory Social history reviewed Medication list reviewed with resident and is pending reconciliation OBJECTIVE: VS, labs, imaging reviewed Mild distress, AAO, resting comfortably in bed. RRR s1/2 no mgr 4th toe is black with hazy margins up the metatarsal; painful to palpation, minimal movement when prompted. NT ND +BS Lungs CTAB w/ sym exp CN2-12 wnl, no fnd Labs reviewed; elevated ESR in 90s with normal white count. BMP stereotyped of ESRD without any profound electrolyte abnormalities CT shows air at the 4th toe suspicious for gas-forming infection XR reviewed ASSESSMENT AND PLAN: Mrs. Crain is a 77 y/o AAF presenting with a likely gas-forming infection in her 4th toe 1) Acute DM foot infection with likely gas forming organism -NPO, IVF (low rate for ESRD), ID/sgy/podiatry consults -Blood cultures pending -ESR elevated; trend WBC -Likely will need operative intervention. This was discussed with consultants overnight. Continue with vanc/zosyn/clinda. Further tx per ID and sgy -Check venous and arterial dopplers 2) DM -SSI 3) ESRD -Consult her oven roaster for HD; monitor BMP and UOP 4) HTN -Hold antihypertensives; resume when clinically appropriate. FENA -NS@50 -PRN replete -NPO -OOBTC Full Code
[2018-07-18] MEDS ORDERED: ATORVASTATIN CA 10 MG TABLET (FP) PO SCH (22:00)
[2018-07-18] MEDS ORDERED: SODIUM CHLORIDE 1,000 ML IV SCH (22:15)
[2018-07-18] MEDS: CLINDAMYCIN 600MG PREMIX IVPB 600 MG/50 ML BAG IVPB SCH ×2 (22:30→23:03)
[2018-07-19 00:07] VITALS: BMI 26.4
[2018-07-19] MEDS ORDERED: PIPERACILLIN/TAZOBACTAM 2.25 GM VIAL IVPB ONE ×3 (01:07→18:24)
[2018-07-19] MEDS ORDERED: DEXTROSE 5%-WATER - 50 ML IVPB ONE ×3 (01:07→18:25)
[2018-07-19 01:19] LABS: ANION GAP 10 MMOL/L (8-16); BLOOD UREA NITROGEN 41 mg/dL (7-18); CALCIUM 8.8 mg/dL (8.5-10.1); CHLORIDE 98 mmol/L (98-107); CO2 29 mmol/L (21-32); CREATININE 4.3 mg/dL (0.55-1.3); GLUCOSE,RANDOM 83 mg/dL (74-106); POTASSIUM 3.8 mmol/L (3.5-5.1); SODIUM 138 mmol/L (136-145)
[2018-07-19] MEDS: CLINDAMYCIN 600MG PREMIX IVPB 600 MG/50 ML BAG IVPB SCH ×3 (01:52→19:56)
[2018-07-19] MEDS ORDERED: PIPERACILLIN/TAZOB 2.25 GM 2.25 GM in DEXTROSE 5%-WATER - 50 ML IVPB SCH (02:00)
[2018-07-19] MEDS: HEPARIN NA (PORCINE) 5,000 UNITS/ML 1ML VIAL SQ SCH ×3 (05:14→21:03)
[2018-07-19] MEDS ORDERED: DEXTROSE 50%-WATER - 25 GM/50 ML VIAL IVPUSH ONE (05:16)
[2018-07-19] MEDS ORDERED: DEXTROSE 50%-WATER 25 GM/50 ML DISP.SYRIN ONE (05:25)
[2018-07-19] MEDS ORDERED: DEXTROSE 50%-WATER 25 GM/50 ML DISP.SYRIN IVPUSH ONE (05:30)
[2018-07-19] MEDS ORDERED: HEPARIN NA (PORCINE) 5,000 UNITS/ML 1ML VIAL SQ SCH (06:00)
[2018-07-19 08:28] LABS: HEMATOCRIT 26.1 % (32.4-45.2); HEMOGLOBIN 9.1 GM/dL (10.7-15.3); MCH 31.6 pg (25.7-33.7); MCHC 34.8 g/dl (32.0-36.0); MEAN CELL VOLUME 90.9 fl (80-96); MEAN PLT VOLUME 7.8 fl (7.5-11.1); PLATELET COUNT 243 K/MM3 (134-434); RBC 2.87 M/mm3 (3.60-5.2); WHITE BLOOD COUNT 9.9 K/mm3 (4.0-10.0)
[2018-07-19] MEDS: SEVELAMER CARBONATE 800 MG TAB (FP) PO SCH ×3 (09:00→19:09)
[2018-07-19] MEDS: PIPERACILLIN/TAZOB 2.25 GM 2.25 GM in DEXTROSE 5%-WATER - 50 ML IVPB SCH ×2 (09:02→19:09)
[2018-07-19] MEDS: ACETAMINOPHEN 325 MG TABLET (FP) PO PRN ×2 (09:03→18:27)
[2018-07-19 09:10] LABS: ANION GAP 13 MMOL/L (8-16); BLOOD UREA NITROGEN 42 mg/dL (7-18); CALCIUM 8.6 mg/dL (8.5-10.1); CHLORIDE 98 mmol/L (98-107); CO2 27 mmol/L (21-32); CREATININE 4.5 mg/dL (0.55-1.3); GLUCOSE,RANDOM 112 mg/dL (74-106); MAGNESIUM 2.4 mg/dL (1.8-2.4); POTASSIUM 3.3 mmol/L (3.5-5.1); SODIUM 138 mmol/L (136-145)
[2018-07-19] MEDS ORDERED: SODIUM CHLORIDE 0.9%/KCL 20 MEQ/1,000 ML INFUS.BAG IV SCH (09:22)
--- NOTE | 2018-07-19 09:35 | PN ---
Physical Exam: SUBJECTIVE: Patient seen and examined at bedside. Events noted. No events on tele. No new complaints. Denies CP,ELLIS, SOB, palpitations, abdominal pain, nausea or vomiting. OBJECTIVE: Vital Signs Period Temp Pulse Resp BP Sys/Jha Pulse Ox Last 24 Hr 97.5 F-98.2 F 57-67 16-18 101-136/50-64 95-100 GENERAL: Awake and alert, NAD HEAD: NCAT EYES: PERRL, EOMI, sclera anicteric, conjunctiva clear. No ptosis. ENT: moist mucous membranes. NECK: supple, no jvd LUNGS: CTAB, no wheezes, no crackles, no accessory muscle use. HEART: RRR, S1, S2 without murmur, rub or gallop. ABDOMEN: Soft, obese,nontender, nondistended, normoactive bowel sounds EXTREMITIES: 1+ pulses bilat. gangrenous 4th toe of left foot +foul smelling. NEUROLOGICAL: Cranial nerves II through XII grossly intact. Normal speech, gait not observed. PSYCH: Normal mood, normal affect. SKIN: stage 2 sacral decubitus ulcer. Multiple circular wounds on arms and legs with white plaques. Laboratory Results - last 24 hr 07/18/1818 07/18/18 17:20 17:20 17:20 WBC 9.7 RBC 3.05 L Hgb 9.6 L Hct 27.4 L MCV 89.9 MCH 31.5 MCHC 35.0 RDW 16.9 H Plt Count 291 D MPV 7.8 Absolute Neuts (auto) 7.5 Neutrophils % 77.0 D Lymphocytes % 12.5 D Monocytes % 8.2 Eosinophils % 1.6 Basophils % 0.7 Nucleated RBC % 1 H ESR 94 H Sodium Potassium Chloride Carbon Dioxide Anion Gap BUN Creatinine Creat Clearance w eGFR POC Glucometer Random Glucose Hemoglobin A1c % Lactic Acid Calcium Magnesium Total Bilirubin AST ALT Alkaline Phosphatase C-Reactive Protein 3.6 H Total Protein Albumin 07/18/1818 07/19/18 17:20 00:35 00:35 WBC RBC Hgb Hct MCV MCH MCHC RDW Plt Count MPV Absolute Neuts (auto) Neutrophils % Lymphocytes % Monocytes % Eosinophils % Basophils % Nucleated RBC % ESR Sodium 139 138 Potassium 3.8 3.8 Chloride 98 98 Carbon Dioxide 29 29 Anion Gap 12 10 BUN 38 H 41 H Creatinine 4.0 H 4.3 H Creat Clearance w eGFR 10.83 9.96 POC Glucometer Random Glucose 113 H 83 Hemoglobin A1c % Lactic Acid 1.0 Calcium 8.9 8.8 Magnesium Total Bilirubin 2.3 H AST 34 ALT 22 Alkaline Phosphatase 115 C-Reactive Protein Total Protein 7.1 Albumin 2.6 L 07/19/18 07/19/18 07/19/18 05:12 06:00 06:00 WBC RBC Hgb Hct MCV MCH MCHC RDW Plt Count MPV Absolute Neuts (auto) Neutrophils % Lymphocytes % Monocytes % Eosinophils % Basophils % Nucleated RBC % ESR Sodium Potassium Chloride Carbon Dioxide Anion Gap BUN Creatinine Creat Clearance w eGFR POC Glucometer 67 112 Random Glucose Hemoglobin A1c % 4.7 Lactic Acid Calcium Magnesium Total Bilirubin AST ALT Alkaline Phosphatase C-Reactive Protein Total Protein Albumin 07/19/18 07/19/18 06:30 06:30 WBC 9.9 RBC 2.87 L Hgb 9.1 L Hct 26.1 L MCV 90.9 MCH 31.6 MCHC 34.8 RDW 17.0 H Plt Count 243 MPV 7.8 Absolute Neuts (auto) Neutrophils % Lymphocytes % Monocytes % Eosinophils % Basophils % Nucleated RBC % ESR Sodium 138 Potassium 3.3 L Chloride 98 Carbon Dioxide 27 Anion Gap 13 BUN 42 H Creatinine 4.5 H Creat Clearance w eGFR 9.45 POC Glucometer Random Glucose 112 H Hemoglobin A1c % Lactic Acid Calcium 8.6 Magnesium 2.4 Total Bilirubin AST ALT Alkaline Phosphatase C-Reactive Protein Total Protein Albumin Active Medications Generic Name Dose Route Start Last Admin Trade Name Freq PRN Reason Stop Dose Admin Acetaminophen 650 mg 07/19/18 04:17 07/19/18 09:03 Tylenol - PO 650 mg Q4H PRN Administration FEVER Atorvastatin Calcium 10 mg 07/19/18 22:00 Lipitor - PO HS [facility] Heparin Sodium (Porcine) 5,000 unit 07/19/18 06:00 07/19/18 05:14 Heparin - SQ Not Given TID [facility] Clindamycin Phosphate 600 mg in 50 mls @ 100 mls/hr 07/19/18 10:00 Cleocin 600 Mg Premix Ivpb - IVPB Q8H-IV NOE Protocol Piperacillin Sod/Tazobactam 50 mls @ 100 mls/hr 07/19/18 10:00 07/19/18 09:02 Sod 2.25 gm/ Dextrose IVPB 100 mls/hr Q8H-IV NOE Administration Protocol Potassium Chloride 20 meq/ 1,010 mls @ 50 mls/hr 07/19/18 09:22 Sodium Chloride IVPB 07/19/18 22:13 ASDIR NOE Sevelamer Carbonate 800 mg 07/19/18 08:00 07/19/18 09:00 Renvela - PO Not Given TIDCM NOE ASSESSMENT/PLAN: 77 yo Female with PMH of ESRD (HD on ,,S), NIDDM, HTN, HLD, admitted with Left 4th toe wound and pain for 1 month. Problem List - Problems (1) Gas gangrene of foot Assessment/Plan: CT imaging shows air in soft tissue surrounding tube, * Zosyn,. Vanco and Clinda ; ID on board. * Vascular Dr. Rodriguez ; CTA pending * Podiatry consulted and will wait for vascular to schedule amputation. * NPO for OR in AM * ESR 94 CRP3.6 * Lactic acid pending. (2) ESRD (end stage renal disease) Assessment/Plan: * Nephrology consulted * HD on ,,S * Pt will require HD tomorrow * renally dose Abx (3) Anemia Assessment/Plan: stable; 2/2 ESRD * will monitor H/H (4) Diabetes Assessment/Plan: * ADA renal diet * ISS ACHS * BGM ACHS (5) Hyperlipidemia Assessment/Plan: lipitor 10mg HS (6) Hypertension Assessment/Plan: BP meds on hold for low BP * Will resume Amlodipine PRN (7) DVT prophylaxis Assessment/Plan: Heparin SQ TID Visit type - Emergency Visit Emergency Visit: Yes ED Registration Date: 07/18/18 Care time: The patient presented to the Emergency Department on the above date and was hospitalized for further evaluation of their emergent condition. - New Patient This patient is new to me today: Yes Date on this admission: 07/19/18 - Critical Care Critical Care patient: No
[2018-07-19] MEDS ORDERED: amLODIPine BESYLATE 10 MG TABLET (FP) PO SCH (10:00)
[2018-07-19] MEDS ORDERED: LABETALOL HCL 200 MG TABLET (FP) PO SCH (10:00)
--- NOTE | 2018-07-19 10:32 | CONSULT ---
Consult Consult Specialty:: Podiatry Reason for Consultation:: Gangarene left foot - History of Present Illness Chief Complaint: Pain - History Source History Provided By: Medical Record - Past Medical History Cardio/Vascular: Yes: HTN, Hyperlipdemia Renal/: Yes: Renal Failure, Hemodialysis Endocrine: Yes: Diabetes Mellitus (diet controlled) - Past Surgical History Past Surgical History: Yes: AV Fistula/Graft (recent), Hysterectomy (for ovar ca ), Joint Replacement (R knee), Oopherectomy (for ovar ca), Upper Endoscopy ( several mos ago, negative) - Alcohol/Substance Use Hx Alcohol Use: No History of Substance Use: reports: None - Smoking History Smoking history: Never smoked Have you smoked in the past 12 months: No Aproximately how many cigarettes per day: 0 - Social History Usual Living Arrangement: With Child ADL: Support Services History of Recent Travel: No Home Medications - Allergies Allergies/Adverse Reactions: Allergies Allergy/AdvReac Type Severity Reaction Status Date / Time No Known Drug Allergies Allergy Verified 07/18/18 16:35 - Home Medications Home Medications: Ambulatory Orders Amlodipine Besylate [Norvasc -] 10 mg PO DAILY 08/02/14 Atorvastatin Ca [Lipitor] 10 mg PO HS 03/29/17 Labetalol HCl [Normodyne -] 300 mg PO DAILY 03/29/17 Sevelamer Carbonate [Renvela -] 800 mg PO TID 03/29/17 Vancomycin 1,000 mg IVPB TuThSa vial 04/11/17 Family Disease History - Family Disease History Family Disease History: Diabetes: Sister, Heart Disease: Sister, Other: Mother ( hypertension) Physical Exam Vital Signs: Vital Signs Temperature 97.6 F 07/19/18 09:10 Pulse Rate 61 07/19/18 09:10 Respiratory Rate 18 07/19/18 09:10 Blood Pressure 132/62 07/19/18 09:10 O2 Sat by Pulse Oximetry (%) 98 07/18/18 22:00 Extremities: Yes: Other (+gangarene left foot, +dry, +no clinical signs of acute distress from gas in foot, non palpable pulses,) Labs: CBC, BMP 07/19/18 06:30 07/19/18 06:30 Imaging - Results X-ray: Image Reviewed Cat Scan: Image Reviewed Assessment/Plan gangarene pvd Discussed with Dr. Rodriguez. Would like to evaluate vascular status before any intervention. Will follow. Dry steril dressing for now on left foot.
--- NOTE | 2018-07-19 10:56 | PN ---
Progress Note (short form) - Note Progress Note: Vascular Surgery Pt seen and examined. Left foot 4th toe gangrene no palpable pulses. Palpable popliteal pulse. Will order CTA for today -- then pt can get HD Pt will probably need angioplasty zenobia. Pt has normal WBC, and is afebrile. Boris kang DO
[2018-07-19] MEDS ORDERED: SODIUM CHLORIDE 250 ML IV PRN ×2 (11:19→15:33)
[2018-07-19 11:55] LABS: PHOSPHOROUS 3.6 mg/dL (2.5-4.9)
--- NOTE | 2018-07-19 12:48 | EKG ---
Test Reason : Blood Pressure : / mmHG Vent. 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
--- NOTE | 2018-07-19 13:59 | CON.ID ---
Consult Consult Specialty:: infectious diseases Reason for Consultation:: gangrene of the foot - History of Present Illness Chief Complaint: paing swelling erythem and discoloration of the foot History of Present Illness: 77 yo Female with PMH of ESRD (HD on T,Th,S), NIDDM, HTN, HLD, admitted with Left 4th toe wound and pain for 1 month. She states that she has been seen by her air defense control officer who began oral bactrim about two weeks ago which has not led to any improvement. Her daughter visited her today and noted the wound to look worse than it had and her mother was complaining of pain so she called the air defense control officer who recommended going to the ED for evaluation and likely IV Abx. She also states that for about one month she has had small ulcerations form in the skin on her arms and some on her legs. She does not know what is causing them and initially attributed them to her diet. She states they are nonpruritic and mostly nonpainful and says they occur and heal randomly with multiple ulcers in different stages of healing. She currently denies any fevers, chills, SOB, chest pain, n/v/d. Of note she states she has been on dialysis for about 6 years or so but only recently had her AVF created in the left arm in November or so of this year. She thinks that a port was used for her dialysis prior to the AVF. She endorses occasional urine production. patient other garcia stable - History Source History Provided By: Patient, Family Member Limitations to Obtaining History: No Limitations - Past Medical History Cardio/Vascular: Yes: HTN, Hyperlipdemia Renal/: Yes: Renal Failure, Hemodialysis Endocrine: Yes: Diabetes Mellitus (diet controlled) - Past Surgical History Past Surgical History: Yes: AV Fistula/Graft (recent), Hysterectomy (for ovar ca ), Joint Replacement (R knee), Oopherectomy (for ovar ca), Upper Endoscopy ( several mos ago, negative) - Alcohol/Substance Use Hx Alcohol Use: No History of Substance Use: reports: None - Smoking History Smoking history: Never smoked Have you smoked in the past 12 months: No Aproximately how many cigarettes per day: 0 - Social History Usual Living Arrangement: With Child ADL: Support Services History of Recent Travel: No Home Medications - Allergies Allergies/Adverse Reactions: Allergies Allergy/AdvReac Type Severity Reaction Status Date / Time No Known Drug Allergies Allergy Verified 07/18/18 16:35 - Home Medications Home Medications: Ambulatory Orders RX: Amlodipine Besylate [Norvasc -] 10 mg PO DAILY 08/02/14 RX: Atorvastatin Ca [Lipitor] 10 mg PO HS 03/29/17 RX: Labetalol HCl [Normodyne -] 300 mg PO DAILY 03/29/17 RX: Sevelamer Carbonate [Renvela -] 800 mg PO TID 03/29/17 RX: Vancomycin 1,000 mg IVPB TuThSa vial 04/11/17 Family Disease History - Family Disease History Family Disease History: Diabetes: Sister, Heart Disease: Sister, Other: Mother ( hypertension) Review of Systems - Review of Systems Constitutional: reports: No Symptoms Eyes: reports: No Symptoms HENT: reports: No Symptoms Neck: reports: No Symptoms Cardiovascular: reports: No Symptoms Respiratory: reports: No Symptoms Gastrointestinal: reports: No Symptoms Genitourinary: reports: No Symptoms Musculoskeletal: reports: Other Integumentary: reports: Change in Color, Erythema, Wound Neurological: reports: No Symptoms Endocrine: reports: No Symptoms Hematology/Lymphatic: reports: No Symptoms Psychiatric: reports: No Symptoms Physical Exam Vital Signs: Vital Signs Temperature 98.1 F 07/19/18 13:45 Pulse Rate 64 07/19/18 13:45 Respiratory Rate 16 07/19/18 13:45 Blood Pressure 133/68 07/19/18 13:45 O2 Sat by Pulse Oximetry (%) 96 07/19/18 09:00 Constitutional: Yes: Well Nourished, No Distress, Calm Cardiovascular: Yes: Regular Rate and Rhythm Respiratory: Yes: Regular, CTA Bilaterally Gastrointestinal: Yes: Normal Bowel Sounds, Soft Musculoskeletal: Yes: WNL Extremities: Yes: Erythema, Other (discoloration of the foot) Wound/Incision: Yes: Other (patient with discoloration of the foot which looks like gangrene) Neurological: Yes: Alert, Oriented Psychiatric: Yes: Alert, Oriented Labs: CBC, BMP 07/19/18 06:30 07/19/18 06:30 Imaging - Results Chest X-ray: Report Reviewed, Image Reviewed X-ray: Report Reviewed, Image Reviewed Cat Scan: Report Reviewed, Image Reviewed Assessment/Plan 77 yo Female with PMH of ESRD (HD on T,,S), NIDDM, HTN, HLD, admitted with Left 4th toe wound and pain for 1 month. Necrotic left 4th Toe ESRD on HD NIDDM HTN HLD plan will start patient on abx wound care patient needs amputation podiatry vascular rest as per the team
--- NOTE | 2018-07-19 14:18 | PN ---
Teaching Attending Note Name of Resident: Jose Mccann ATTENDING PHYSICIAN STATEMENT I saw and evaluated the patient. I reviewed the resident's note and discussed the case with the resident. I agree with the resident's findings and plan as documented. SUBJECTIVE: Ms Crain says her foot is hurting. She also notes multiple painful ulcerations along her arms. No cp, sob, n/v. 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 - OTHER DISORDERS OF CALCIUM METABOLISM (3) Chronic kidney disease, stage 5, kidney failure Code(s): N18.5 - CHRONIC KIDNEY DISEASE, STAGE 5 (4) GERD (gastroesophageal reflux disease) Code(s): K21.9 - GASTRO-ESOPHAGEAL REFLUX DISEASE WITHOUT ESOPHAGITIS (5) Hyperlipidemia Code(s): E78.5 - HYPERLIPIDEMIA, UNSPECIFIED (6) Hypertension Code(s): I10 - ESSENTIAL (PRIMARY) HYPERTENSION (7) Osteoarthritis Code(s): M19.90 - UNSPECIFIED OSTEOARTHRITIS, UNSPECIFIED SITE (8) Rheumatoid arthritis involving both hips Code(s): M06.9 - RHEUMATOID ARTHRITIS, UNSPECIFIED (9) Hypokalemia Code(s): E87.6 - HYPOKALEMIA
[2018-07-19] MEDS ORDERED: EPOETIN ALFA 10,000 UNIT/1 ML VIAL IVPUSH ONE (15:45)
--- NOTE | 2018-07-19 16:53 | CONSULT ---
Consult - text type - Consultation Consultation Note: Renal Consult for ESRD on HD This is a 77 year old AA woman with hx of ESRD on HD, DM, hypertension who presented with worsening infection of her foot. As per daughter they first noticed bruising of the foot 3 weeks ago. Was taking oral Abx. Last dialysis was Monday. No N/V/D. No SOB or CP. PMhx: as above Allergies: NKDA Family Hx: NC Social hx: No T/A/D ROS: as per HPI Home Medications Medication Instructions Recorded Amlodipine Besylate [Norvasc -] 10 mg PO DAILY 08/02/14 Atorvastatin Ca [Lipitor] 10 mg PO HS 03/29/17 Labetalol HCl [Normodyne -] 300 mg PO DAILY 03/29/17 Sevelamer Carbonate [Renvela -] 800 mg PO TID 03/29/17 Vancomycin 1,000 mg IVPB TuThSa vial 04/11/17 Vital Signs Temperature 97.7 F 07/19/18 15:00 Pulse Rate 60 07/19/18 16:15 Respiratory Rate 18 07/19/18 16:15 Blood Pressure 115/66 07/19/18 16:15 O2 Sat by Pulse Oximetry (%) 96 07/19/18 09:00 NAD awake and alert neck supple RRR CTA No LE edmea foot in dressing CBC, BMP 07/19/18 06:30 07/19/18 06:30 Current Medications Acetaminophen (Tylenol -) 650 mg PO Q4H PRN PRN Reason: FEVER Last Admin: 07/19/18 09:03 Dose: 650 mg Atorvastatin Calcium (Lipitor -) 10 mg PO [facility] Heparin Sodium (Porcine) (Heparin -) 5,000 unit SQ TID NOE Last Admin: 07/19/18 15:00 Dose: 5,000 unit Clindamycin Phosphate (Cleocin 600 Mg Premix Ivpb -) 600 mg in 50 mls @ 100 mls /hr IVPB Q8H-IV NOE; Protocol Last Admin: 07/19/18 10:25 Dose: 100 mls/hr Piperacillin Sod/Tazobactam (Sod 2.25 gm/ Dextrose) 50 mls @ 100 mls/hr IVPB Q8H-IV NOE; Protocol Last Admin: 07/19/18 09:02 Dose: 100 mls/hr Potassium Chloride/Sodium Chloride (Ns+20 Meq Kcl -) 20 meq in 1,000 mls @ 50 mls/hr IV ASDIR NOE Stop: 07/19/18 22:13 Last Admin: 07/19/18 10:24 Dose: 50 mls/hr Sodium Chloride (Normal Saline -) 250 mls @ 3,000 mls/hr IV PRN PRN PRN Reason: Hypotension during Dialysis Stop: 07/20/18 15:32 Sodium Chloride (Normal Saline -) 1,000 mls @ 50 mls/hr IV ASDIR NOE Sevelamer Carbonate (Renvela -) 800 mg PO TIDCM [facility] Last Admin: 07/19/18 12:00 Dose: Not Given 77 year old AA woman with hx of ESRD on HD, DM, hypertension who presented with worsening infection of her foot #Gangrene of LE #suspected arterial insuffiency of LE #ESRD on HD #DM #Anemia #Renal Osteodystrophy Continue Abx as per ID for CTA of LE today HD following CT scan VAscular follow up supportive care Renal diet can d/c IVF once able to tolerate diet Asa Smith DO
[2018-07-19] MEDS: ATORVASTATIN CA 10 MG TABLET (FP) PO SCH (21:04)
[2018-07-19] MEDS ORDERED: oxyCODONE HCL 5 MG TABLET PO ONE (21:45)
[2018-07-19] MEDS ORDERED: SODIUM CHLORIDE 1,000 ML IV SCH (22:10)
[2018-07-20] MEDS ORDERED: DEXTROSE 5%-WATER - 50 ML IVPB ONE ×3 (01:02→17:17)
[2018-07-20] MEDS ORDERED: PIPERACILLIN/TAZOBACTAM 2.25 GM VIAL IVPB ONE ×3 (01:02→17:17)
[2018-07-20] MEDS: CLINDAMYCIN 600MG PREMIX IVPB 600 MG/50 ML BAG IVPB SCH ×3 (01:12→09:31)
[2018-07-20] MEDS: PIPERACILLIN/TAZOB 2.25 GM 2.25 GM in DEXTROSE 5%-WATER - 50 ML IVPB SCH ×3 (01:56→18:30)
[2018-07-20 04:20] LABS: SERUM IRON SATURATION 21 % (15-55); TOTAL IRON BINDING CAPACITY 197 ug/dL (250-450); UIBC 156 ug/dL (118-369)
[2018-07-20] MEDS: HEPARIN NA (PORCINE) 5,000 UNITS/ML 1ML VIAL SQ SCH ×3 (05:12→21:48)
[2018-07-20] MEDS ORDERED: DEXTROSE 50%-WATER - 25 GM/50 ML VIAL IVPUSH ONE (05:43)
[2018-07-20] MEDS ORDERED: DEXTROSE 50%-WATER 25 GM/50 ML DISP.SYRIN IVPUSH ONE (05:43)
[2018-07-20] MEDS ORDERED: DEXTROSE 50%-WATER 25 GM/50 ML DISP.SYRIN ONE (05:44)
[2018-07-20 07:21] LABS: BASO % 0.7 % (0-2.0); EOS % 2.2 % (0-4.5); HEMATOCRIT 28.3 % (32.4-45.2); HEMOGLOBIN 9.3 GM/dL (10.7-15.3); LYMPH % 13.4 % (8-40); MCH 30.3 pg (25.7-33.7); MCHC 32.9 g/dl (32.0-36.0); MEAN CELL VOLUME 92.2 fl (80-96); MEAN PLT VOLUME 7.2 fl (7.5-11.1); MONO % 9.9 % (3.8-10.2); NEUT % 73.8 % (42.8-82.8); PLATELET COUNT 240 K/MM3 (134-434); RBC 3.07 M/mm3 (3.60-5.2); RDW 16.7 % (11.6-15.6); WHITE BLOOD COUNT 9.6 K/mm3 (4.0-10.0)
[2018-07-20 08:01] LABS: ALBUMIN 2.4 g/dl (3.4-5.0); ALK PHOS 98 U/L (45-117); ANION GAP 9 MMOL/L (8-16); BILIRUBIN,TOTAL 1.4 mg/dL (0.2-1); BLOOD UREA NITROGEN 20 mg/dL (7-18); CALCIUM 8.7 mg/dL (8.5-10.1); CHLORIDE 99 mmol/L (98-107); CO2 29 mmol/L (21-32); GLUCOSE,RANDOM 90 mg/dL (74-106); POTASSIUM 3.3 mmol/L (3.5-5.1); SGOT/AST 29 U/L (15-37); SGPT/ALT 20 U/L (13-61); SODIUM 137 mmol/L (136-145); TOT PROT 6.8 g/dl (6.4-8.2)
[2018-07-20] MEDS: SEVELAMER CARBONATE 800 MG TAB (FP) PO SCH ×3 (08:31→17:24)
[2018-07-20] MEDS: ACETAMINOPHEN 325 MG TABLET (FP) PO PRN (09:30)
[2018-07-20] MEDS ORDERED: oxyCODONE HCL 5 MG TABLET PO PRN (10:48)
[2018-07-20] MEDS: POLYETHYLENE GLYCOL 3350 119 GM BTL PO SCH ×2 (10:48→21:49)
--- NOTE | 2018-07-20 11:42 | PN ---
Progress Note (short form) - Note Progress Note: Renal follow up for ESRD on HD Pt seen and examined at the bedside had some pain in her foot from time to time no sob, cp, fever, chills on IVF, remains NPO Vital Signs Temperature 98.3 F 07/20/18 09:00 Pulse Rate 68 07/20/18 09:00 Respiratory Rate 16 07/20/18 09:00 Blood Pressure 152/62 07/20/18 09:00 O2 Sat by Pulse Oximetry (%) 98 07/19/18 20:08 Intake & Output 07/17/18 07/18/18 07/19/18 07/20/18 23:59 23:59 23:59 23:59 Intake Total 50 895 475 Balance 50 895 475 Weight 72.178 kg 72.121 kg NAD awake and alert No Le edema left foot with necrotic toe CBC, BMP 07/20/18 06:00 07/20/18 06:00 Current Medications Acetaminophen (Tylenol -) 650 mg PO Q4H PRN PRN Reason: FEVER Last Admin: 07/20/18 09:30 Dose: 650 mg Atorvastatin Calcium (Lipitor -) 10 mg PO HS NOE Last Admin: 07/19/18 21:04 Dose: 10 mg Heparin Sodium (Porcine) (Heparin -) 5,000 unit SQ TID NOE Last Admin: 07/20/18 05:12 Dose: Not Given Clindamycin Phosphate (Cleocin 600 Mg Premix Ivpb -) 600 mg in 50 mls @ 100 mls /hr IVPB Q8H-IV NOE; Protocol Last Admin: 07/20/18 09:31 Dose: 100 mls/hr Piperacillin Sod/Tazobactam (Sod 2.25 gm/ Dextrose) 50 mls @ 100 mls/hr IVPB Q8H-IV NOE; Protocol Last Admin: 07/20/18 10:47 Dose: 100 mls/hr Oxycodone HCl (Roxicodone -) 2.5 mg PO Q6H PRN PRN Reason: PAIN LEVEL 7 - 10 Polyethylene Glycol (Miralax (For Daily Use) -) 17 gm PO BID NOE Last Admin: 07/20/18 10:48 Dose: 17 gm Sevelamer Carbonate (Renvela -) 800 mg PO TIDCM NOE Last Admin: 07/20/18 08:31 Dose: Not Given 77 year old AA woman with hx of ESRD on HD, DM, hypertension who presented with worsening infection of her foot #Gangrene of LE #suspected arterial insuffiency of LE #ESRD on HD #DM #Anemia #Renal Osteodystrophy s/p dialysis yesterday, tolerated it well no indication for [employer] today Vascular follow up and angiogram CTA read pending continue Abx as per ID Renal diet continue Renvela with meals Asa Smith DO
--- NOTE | 2018-07-20 13:44 | PN ---
Progress Note (short form) - Note Progress Note: Patient seen with family present. vss, Tmax 98.3 +gangarene, +pvd, -drainage, +dry, extending to mid foot over 4th metatarsal, wbc=9.6 PVD Gangarene Pt being optimized for vascular intervention than debridement of foot once revascularized. Will follow. Family present throughout.
--- NOTE | 2018-07-20 14:46 | PN ---
Progress Note, Physician History of Present Illness: stable tolerating dialysis probably for angio today - Current Medication List Current Medications: Active Medications Acetaminophen (Tylenol -) 650 mg PO Q4H PRN PRN Reason: FEVER Last Admin: 07/20/18 09:30 Dose: 650 mg Atorvastatin Calcium (Lipitor -) 10 mg PO HS [facility] Last Admin: 07/19/18 21:04 Dose: 10 mg Heparin Sodium (Porcine) (Heparin -) 5,000 unit SQ TID [facility] Last Admin: 07/20/18 05:12 Dose: Not Given Clindamycin Phosphate (Cleocin 600 Mg Premix Ivpb -) 600 mg in 50 mls @ 100 mls /hr IVPB Q8H-IV NOE; Protocol Last Admin: 07/20/18 09:31 Dose: 100 mls/hr Piperacillin Sod/Tazobactam (Sod 2.25 gm/ Dextrose) 50 mls @ 100 mls/hr IVPB Q8H-IV NOE; Protocol Last Admin: 07/20/18 10:47 Dose: 100 mls/hr Oxycodone HCl (Roxicodone -) 2.5 mg PO Q6H PRN PRN Reason: PAIN LEVEL 7 - 10 Polyethylene Glycol (Miralax (For Daily Use) -) 17 gm PO BID [facility] Last Admin: 07/20/18 10:48 Dose: 17 gm Sevelamer Carbonate (Renvela -) 800 mg PO TIDCM [facility] Last Admin: 07/20/18 12:28 Dose: Not Given - Objective Vital Signs: Vital Signs Temperature 98.3 F 07/20/18 09:00 Pulse Rate 68 07/20/18 09:00 Respiratory Rate 16 07/20/18 09:00 Blood Pressure 152/62 07/20/18 09:00 O2 Sat by Pulse Oximetry (%) 98 07/19/18 20:08 Constitutional: Yes: No Distress, Calm Cardiovascular: Yes: Regular Rate and Rhythm Respiratory: Yes: Regular, CTA Bilaterally Gastrointestinal: Yes: Normal Bowel Sounds, Soft Musculoskeletal: Yes: Other Extremities: Yes: Other Integumentary: Yes: Erythema, Other (gangrene of the 4th toe) Wound/Incision: Yes: Clean/Dry Neurological: Yes: Alert, Oriented Psychiatric: Yes: Alert, Oriented Labs: CBC, BMP 07/20/18 06:00 12/14/18 06:00 Assessment/Plan 77 yo Female with PMH of ESRD (HD on T,Th,S), NIDDM, HTN, HLD, admitted with Left 4th toe wound and pain for 1 month. Necrotic left 4th Toe ESRD on HD NIDDM HTN HLD plan abx wound care patient needs amputation podiatry vascular rest as per the team await for angio
--- NOTE | 2018-07-20 16:19 | PN ---
Physical Exam: SUBJECTIVE: Patient seen and examined at bedside. Events noted. No events on tele. No new complaints. Denies CP,ELLIS, SOB, palpitations, abdominal pain, nausea or vomiting. OBJECTIVE: Vital Signs Period Temp Pulse Resp BP Sys/Jha Pulse Ox Last 24 Hr 97.5 F-98.2 F 57-67 16-18 101-136/50-64 95-100 GENERAL: Awake and alert, NAD HEAD: NCAT EYES: PERRL, EOMI, sclera anicteric, conjunctiva clear. No ptosis. ENT: moist mucous membranes. NECK: supple, no jvd LUNGS: CTAB, no wheezes, no crackles, no accessory muscle use. HEART: RRR, S1, S2 without murmur, rub or gallop. ABDOMEN: Soft, obese,nontender, nondistended, normoactive bowel sounds EXTREMITIES: 1+ pulses bilat. gangrenous 4th toe of left foot +foul smelling. NEUROLOGICAL: Cranial nerves II through XII grossly intact. Normal speech, gait not observed. PSYCH: Normal mood, normal affect. SKIN: stage 2 sacral decubitus ulcer. Multiple circular wounds on arms and legs with white plaques. Laboratory Results - last 24 hr 07/19/18 07/19/18 07/19/18 11:33 16:06 20:41 WBC RBC Hgb Hct MCV MCH MCHC RDW Plt Count MPV Absolute Neuts (auto) Neutrophils % Lymphocytes % Monocytes % Eosinophils % Basophils % Nucleated RBC % Sodium Potassium Chloride Carbon Dioxide Anion Gap BUN Creatinine Creat Clearance w eGFR POC Glucometer 136 200 Random Glucose Calcium Iron 41 TIBC 197 L Iron Saturation 21 Total Bilirubin AST ALT Alkaline Phosphatase Total Protein Albumin 07/20/18 07/20/18 07/20/18 05:38 06:00 06:00 WBC 9.6 RBC 3.07 L Hgb 9.3 L Hct 28.3 L MCV 92.2 MCH 30.3 MCHC 32.9 RDW 16.7 H Plt Count 240 MPV 7.2 L Absolute Neuts (auto) 7.1 Neutrophils % 73.8 Lymphocytes % 13.4 Monocytes % 9.9 Eosinophils % 2.2 Basophils % 0.7 Nucleated RBC % 0 Sodium 137 Potassium 3.3 L Chloride 99 Carbon Dioxide 29 Anion Gap 9 BUN 20 H Creatinine 3.0 H Creat Clearance w eGFR 15.09 POC Glucometer 65 Random Glucose 90 Calcium 8.7 Iron TIBC Iron Saturation Total Bilirubin 1.4 H AST 29 ALT 20 Alkaline Phosphatase 98 Total Protein 6.8 Albumin 2.4 L 07/20/18 07/20/18 06:21 11:27 WBC RBC Hgb Hct MCV MCH MCHC RDW Plt Count MPV Absolute Neuts (auto) Neutrophils % Lymphocytes % Monocytes % Eosinophils % Basophils % Nucleated RBC % Sodium Potassium Chloride Carbon Dioxide Anion Gap BUN Creatinine Creat Clearance w eGFR POC Glucometer 110 82 Random Glucose Calcium Iron TIBC Iron Saturation Total Bilirubin AST ALT Alkaline Phosphatase Total Protein Albumin Active Medications Generic Name Dose Route Start Last Admin Trade Name Freq PRN Reason Stop Dose Admin Acetaminophen 650 mg 07/19/18 04:17 07/20/18 09:30 Tylenol - PO 650 mg Q4H PRN Administration FEVER Atorvastatin Calcium 10 mg 07/19/18 22:00 07/19/18 21:04 Lipitor - PO 10 mg HS NOE Administration Heparin Sodium (Porcine) 5,000 unit 07/19/18 06:00 07/20/18 05:12 Heparin - SQ Not Given TID NOE Clindamycin Phosphate 600 mg in 50 mls @ 100 mls/hr 07/19/18 10:00 07/20/18 09:31 Cleocin 600 Mg Premix Ivpb - IVPB 100 mls/hr Q8H-IV NOE Administration Protocol Piperacillin Sod/Tazobactam 50 mls @ 100 mls/hr 07/19/18 10:00 07/20/18 10:47 Sod 2.25 gm/ Dextrose IVPB 100 mls/hr Q8H-IV NOE Administration Protocol Oxycodone HCl 5 mg 07/20/18 15:41 Roxicodone - PO Q4H PRN PAIN LEVEL 7 - 10 Polyethylene Glycol 17 gm 07/20/18 10:45 07/20/18 10:48 Miralax (For Daily Use) - PO 17 gm BID NOE Administration Sevelamer Carbonate 800 mg 07/19/18 08:00 07/20/18 12:28 Renvela - PO Not Given TIDCM NOE ASSESSMENT/PLAN: 77 yo Female with PMH of ESRD (HD on T,Th,S), NIDDM, HTN, HLD, admitted with Left 4th toe wound and pain for 1 month. Problem List - Problems (1) Gas gangrene of foot Assessment/Plan: CT imaging shows air in soft tissue surrounding tube, * Zosyn,. Vanco and Clinda ; ID on board. * Vascular Dr. Rodriguez ; CTA shows very poor circulation. * Will need most likely BKA for monday. * Will obtain Echo for pre-op evaluation. (2) ESRD (end stage renal disease) Assessment/Plan: * Nephrology consulted * HD on T,,S * Pt will require HD tomorrow * renally dose Abx (3) Anemia Assessment/Plan: stable; 2/2 ESRD * will monitor H/H (4) Diabetes Assessment/Plan: * ADA renal diet * ISS ACHS * BGM ACHS (5) Hyperlipidemia Assessment/Plan: lipitor 10mg HS (6) Hypertension Assessment/Plan: BP meds on hold for low BP * Will resume Amlodipine PRN (7) DVT prophylaxis Assessment/Plan: Heparin SQ TID Visit type - Emergency Visit Emergency Visit: Yes ED Registration Date: 07/18/18 Care time: The patient presented to the Emergency Department on the above date and was hospitalized for further evaluation of their emergent condition. - New Patient This patient is new to me today: No - Critical Care Critical Care patient: No
--- NOTE | 2018-07-20 16:27 | PN ---
Teaching Attending Note Name of Resident: Jose Mccann ATTENDING PHYSICIAN STATEMENT I saw and evaluated the patient. I reviewed the resident's note and discussed the case with the resident. I agree with the resident's findings and plan as documented. SUBJECTIVE: Ms Crain is having some pain in her foot today. Also complains of constipation. 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 - OTHER DISORDERS OF CALCIUM METABOLISM (3) Chronic kidney disease, stage 5, kidney failure Code(s): N18.5 - CHRONIC KIDNEY DISEASE, STAGE 5 (4) GERD (gastroesophageal reflux disease) Code(s): K21.9 - GASTRO-ESOPHAGEAL REFLUX DISEASE WITHOUT ESOPHAGITIS (5) Hyperlipidemia Code(s): E78.5 - HYPERLIPIDEMIA, UNSPECIFIED Qualifiers: Hyperlipidemia type: pure hypercholesterolemia Qualified Code(s): E78.00 - Pure hypercholesterolemia, unspecified; E78.0 - Pure hypercholesterolemia (6) Hypertension Code(s): I10 - ESSENTIAL (PRIMARY) HYPERTENSION Qualifiers: Hypertension type: essential hypertension Qualified Code(s): I10 - Essential (primary) hypertension (7) Osteoarthritis Code(s): M19.90 - UNSPECIFIED OSTEOARTHRITIS, UNSPECIFIED SITE (8) Rheumatoid arthritis involving both hips Code(s): M06.9 - RHEUMATOID ARTHRITIS, UNSPECIFIED (9) Hypokalemia Code(s): E87.6 - HYPOKALEMIA
--- NOTE | 2018-07-20 17:11 | PN ---
Progress Note (short form) - Note Progress Note: VAscular surgery Pt seen and examined. Spoke to daughters at bedside. CTA official result pending. Looks like pt has tibial disease in left foot. Please clear from medical and cardiology standpoint for angiogram. Boris Rodriguez DO
[2018-07-20] MEDS: ATORVASTATIN CA 10 MG TABLET (FP) PO SCH (21:49)
[2018-07-20] MEDS: oxyCODONE HCL 5 MG TABLET PO PRN (21:57)
[2018-07-21] MEDS ORDERED: PIPERACILLIN/TAZOBACTAM 2.25 GM VIAL IVPB ONE ×3 (02:16→16:37)
[2018-07-21] MEDS: CLINDAMYCIN 600MG PREMIX IVPB 600 MG/50 ML BAG IVPB SCH ×3 (02:28→18:16)
[2018-07-21] MEDS: PIPERACILLIN/TAZOB 2.25 GM 2.25 GM in DEXTROSE 5%-WATER - 50 ML IVPB SCH ×3 (02:29→17:14)
[2018-07-21 03:16] LABS: HBSAG SCREEN Negative (Negative); HEP B CORE AB, TOT Negative (Negative)
[2018-07-21] MEDS: oxyCODONE HCL 5 MG TABLET PO PRN ×3 (03:58→21:19)
[2018-07-21] MEDS: HEPARIN NA (PORCINE) 5,000 UNITS/ML 1ML VIAL SQ SCH ×3 (06:46→21:18)
[2018-07-21] MEDS: ACETAMINOPHEN 325 MG TABLET (FP) PO PRN (06:58)
[2018-07-21] MEDS ORDERED: DEXTROSE 5%-WATER - 50 ML IVPB ONE ×2 (09:14→16:38)
[2018-07-21] MEDS: SEVELAMER CARBONATE 800 MG TAB (FP) PO SCH ×3 (09:25→16:34)
[2018-07-21] MEDS: POLYETHYLENE GLYCOL 3350 119 GM BTL PO SCH ×2 (09:26→21:25)
--- NOTE | 2018-07-21 09:54 | PN ---
Progress Note, Physician Chief Complaint: Ms Crain is without complaint. No cp, sob, n/v. Still without BM. - Current Medication List Current Medications: Active Medications Acetaminophen (Tylenol -) 650 mg PO Q4H PRN PRN Reason: FEVER Last Admin: 07/21/18 06:58 Dose: 650 mg Atorvastatin Calcium (Lipitor -) 10 mg PO HS NOE Last Admin: 07/20/18 21:49 Dose: 10 mg Epoetin Kin (Epogen -) 10,000 unit IVPUSH ONCE ONE Stop: 07/21/18 08:42 Heparin Sodium (Porcine) (Heparin -) 5,000 unit SQ TID NOE Last Admin: 07/21/18 06:46 Dose: 5,000 unit Clindamycin Phosphate (Cleocin 600 Mg Premix Ivpb -) 600 mg in 50 mls @ 100 mls /hr IVPB Q8H-IV NOE; Protocol Last Admin: 07/21/18 09:23 Dose: 100 mls/hr Piperacillin Sod/Tazobactam (Sod 2.25 gm/ Dextrose) 50 mls @ 100 mls/hr IVPB Q8H-IV NOE; Protocol Last Admin: 07/21/18 09:22 Dose: 100 mls/hr Sodium Chloride (Normal Saline -) 250 mls @ 3,000 mls/hr IV PRN PRN PRN Reason: Hypotension during Dialysis Stop: 07/22/18 08:41 Oxycodone HCl (Roxicodone -) 5 mg PO Q4H PRN PRN Reason: PAIN LEVEL 7 - 10 Last Admin: 07/21/18 03:58 Dose: 5 mg Polyethylene Glycol (Miralax (For Daily Use) -) 17 gm PO BID NOE Last Admin: 07/21/18 09:26 Dose: 17 gm Sevelamer Carbonate (Renvela -) 800 mg PO TIDCM NOE Last Admin: 07/21/18 09:25 Dose: 800 mg - Objective Vital Signs: Vital Signs Temperature 36.6 C 07/21/18 08:12 Pulse Rate 62 07/21/18 08:12 Respiratory Rate 18 07/21/18 08:12 Blood Pressure 131/54 L 07/21/18 08:12 O2 Sat by Pulse Oximetry (%) 94 L 07/21/18 08:15 Constitutional: Yes: Well Nourished, No Distress, Calm Cardiovascular: Yes: Regular Rate and Rhythm. No: Gallop, Murmur, Rub Respiratory: Yes: Regular, CTA Bilaterally. No: Rales, Rhonchi, Wheezes Gastrointestinal: Yes: Normal Bowel Sounds, Soft. No: Distention, Tenderness Extremities: Yes: Other (ulceration on all extremities, gangrene of R 4th toe) Edema: No Labs: CBC, BMP 07/20/18 06:00 07/20/18 06:00 Problem List - Problems (1) Gas gangrene of foot Assessment/Plan: -appreciate vascular surgery and podiatry assistance -continue zosyn and clindamycin -will consult cardiology for cardiac clearance -medically optimized for surgery -planning for BKA Code(s): A48.0 - GAS GANGRENE (2) Calciphylaxis Assessment/Plan: -noted -nephrology following Code(s): E83.59 - OTHER DISORDERS OF CALCIUM METABOLISM (3) Chronic kidney disease, stage 5, kidney failure Assessment/Plan: -nephrology following -continue HD Code(s): N18.5 - CHRONIC KIDNEY DISEASE, STAGE 5 (4) GERD (gastroesophageal reflux disease) Assessment/Plan: -controlled Code(s): K21.9 - GASTRO-ESOPHAGEAL REFLUX DISEASE WITHOUT ESOPHAGITIS (5) Hyperlipidemia Assessment/Plan: -continue lipitor Code(s): E78.5 - HYPERLIPIDEMIA, UNSPECIFIED Qualifiers: Hyperlipidemia type: pure hypercholesterolemia Qualified Code(s): E78.00 - Pure hypercholesterolemia, unspecified; E78.0 - Pure hypercholesterolemia (6) Hypertension Assessment/Plan: -blood pressure labile but controlled this am -continue current management Code(s): I10 - ESSENTIAL (PRIMARY) HYPERTENSION Qualifiers: Hypertension type: essential hypertension Qualified Code(s): I10 - Essential (primary) hypertension (7) Hypokalemia Assessment/Plan: -resolved Code(s): E87.6 - HYPOKALEMIA
--- NOTE | 2018-07-21 09:59 | PN ---
Progress Note (short form) - Note Progress Note: Renal follow up for ESRD on HD Pt seen and examined at the bedside no acute complaints denies any sob, cp, abd pain Vital Signs Temperature 98 F 07/21/18 08:12 Pulse Rate 62 07/21/18 08:12 Respiratory Rate 18 07/21/18 08:12 Blood Pressure 131/54 L 07/21/18 08:12 O2 Sat by Pulse Oximetry (%) 94 L 07/21/18 08:15 NAD awake and alert No Le edema left foot with necrotic toe CBC, BMP 07/20/18 06:00 07/20/18 06:00 Current Medications Acetaminophen (Tylenol -) 650 mg PO Q4H PRN PRN Reason: FEVER Last Admin: 07/21/18 06:58 Dose: 650 mg Atorvastatin Calcium (Lipitor -) 10 mg PO HS NOE Last Admin: 07/20/18 21:49 Dose: 10 mg Epoetin Kin (Epogen -) 10,000 unit IVPUSH ONCE ONE Stop: 07/21/18 08:42 Heparin Sodium (Porcine) (Heparin -) 5,000 unit SQ TID NOE Last Admin: 07/21/18 06:46 Dose: 5,000 unit Clindamycin Phosphate (Cleocin 600 Mg Premix Ivpb -) 600 mg in 50 mls @ 100 mls /hr IVPB Q8H-IV NOE; Protocol Last Admin: 07/21/18 09:23 Dose: 100 mls/hr Piperacillin Sod/Tazobactam (Sod 2.25 gm/ Dextrose) 50 mls @ 100 mls/hr IVPB Q8H-IV NOE; Protocol Last Admin: 07/21/18 09:22 Dose: 100 mls/hr Sodium Chloride (Normal Saline -) 250 mls @ 3,000 mls/hr IV PRN PRN PRN Reason: Hypotension during Dialysis Stop: 07/22/18 08:41 Oxycodone HCl (Roxicodone -) 5 mg PO Q4H PRN PRN Reason: PAIN LEVEL 7 - 10 Last Admin: 07/21/18 03:58 Dose: 5 mg Polyethylene Glycol (Miralax (For Daily Use) -) 17 gm PO BID NOE Last Admin: 07/21/18 09:26 Dose: 17 gm Sevelamer Carbonate (Renvela -) 800 mg PO TIDCM NOE Last Admin: 07/21/18 09:25 Dose: 800 mg 77 year old AA woman with hx of ESRD on HD, DM, hypertension who presented with worsening infection of her foot #Gangrene of LE #suspected arterial insuffiency of LE #ESRD on HD #DM #Anemia #Renal Osteodystrophy for dialysis today continue renal diet will give SHARA with HD for anemia vascular follow up, for angiogram dose all meds for intermittent HD Asa Smith DO
--- NOTE | 2018-07-21 11:36 | CONSULT ---
Consult Consult Specialty:: Cardiology Referred by:: Vascular surgery Reason for Consultation:: Pre-operative cardiovascular evaluation - History of Present Illness Chief Complaint: Left foot pain History of Present Illness: 77 yo AA female History of ESRD on HD, NIDDM, HTN and HPL Now admitted with left foot/toe gangrene that will require peripheral angiography She reports no prior CV history. No prior WV, PCI/CABG, CVA She ambulates with a walker and denies chest pains or dyspnea No other CV complaints such as dizziness, syncope, palpitations No known valvular heart disease or CHF - History Source History Provided By: Patient, Medical Record Limitations to Obtaining History: No Limitations - Past Medical History Cardio/Vascular: Yes: HTN, Hyperlipdemia Renal/: Yes: Renal Failure, Hemodialysis Endocrine: Yes: Diabetes Mellitus (diet controlled) - Past Surgical History Past Surgical History: Yes: AV Fistula/Graft (recent), Hysterectomy (for ovar ca ), Joint Replacement (R knee), Oopherectomy (for ovar ca), Upper Endoscopy ( several mos ago, negative) - Alcohol/Substance Use Hx Alcohol Use: No History of Substance Use: reports: None - Smoking History Smoking history: Never smoked Have you smoked in the past 12 months: No Aproximately how many cigarettes per day: 0 - Social History Usual Living Arrangement: With Child ADL: Support Services History of Recent Travel: No Home Medications - Allergies Allergies/Adverse Reactions: Allergies Allergy/AdvReac Type Severity Reaction Status Date / Time No Known Drug Allergies Allergy Verified 07/18/18 16:35 - Home Medications Home Medications: Ambulatory Orders Amlodipine Besylate [Norvasc -] 10 mg PO DAILY 08/02/14 Atorvastatin Ca [Lipitor] 10 mg PO HS 03/29/17 Labetalol HCl [Normodyne -] 300 mg PO DAILY 03/29/17 Sevelamer Carbonate [Renvela -] 800 mg PO TID 03/29/17 Vancomycin 1,000 mg IVPB TuThSa vial 04/11/17 Family Disease History - Family Disease History Family Disease History: Diabetes: Sister, Heart Disease: Sister, Other: Mother ( hypertension) Physical Exam Vital Signs: Vital Signs Temperature 98 F 07/21/18 08:12 Pulse Rate 62 07/21/18 08:12 Respiratory Rate 18 07/21/18 08:12 Blood Pressure 131/54 L 07/21/18 08:12 O2 Sat by Pulse Oximetry (%) 94 L 07/21/18 08:15 Constitutional: Yes: No Distress, Calm Eyes: Yes: WNL HENT: Yes: WNL Neck: Yes: WNL Cardiovascular: Yes: Regular Rate and Rhythm, Murmur ((+) 2/6 systolic murmur at RUSB) Respiratory: Yes: CTA Bilaterally Gastrointestinal: Yes: Normal Bowel Sounds Musculoskeletal: Yes: WNL Extremities: Yes: Other (Left 4th toe with dry gangrenous changes) Edema: LLE: Trace, RLE: Trace Labs: CBC, BMP 07/20/18 06:00 07/20/18 06:00 Imaging - Results EKG: Image Reviewed (ECG done on 07/24/2018 at 19:56 showed NSR at 62/min with anteroseptal Qs and T wave inversions in I and aVL.) Assessment/Plan 77 yo A female with ESRD on HD, NIDDM, HTN and HPL now admitted with gangrenous left 4th toe that will require a peripheral angiogram with possible BKA. 1) Pre-operative assessment for presumed BKA -Has multiple cardiovascular risk factors with ESRD o HD, NIDDM, HTN, HPL and presumed PAD and a calculated RCRI of 2 (CKD and DM) -Has an abnormal ECG suggestive of possible CAD (anteroseptal Q pattern) -I am unable to accurately assess her functional capacity given her unerlyling issue of toe gangrene and that she ambulation with a walker These aspect in total would point towards pursuing a further non-invasive risk stratification approach, irrespective of this surgical procedure Will order stress MPI.
[2018-07-21 12:03] LABS: BASO % 0.7 % (0-2.0); EOS % 2.6 % (0-4.5); HEMATOCRIT 27.6 % (32.4-45.2); HEMOGLOBIN 9.6 GM/dL (10.7-15.3); LYMPH % 12.4 % (8-40); MCH 31.8 pg (25.7-33.7); MCHC 34.7 g/dl (32.0-36.0); MEAN CELL VOLUME 91.7 fl (80-96); MEAN PLT VOLUME 7.7 fl (7.5-11.1); MONO % 11.6 % (3.8-10.2); NEUT % 72.7 % (42.8-82.8); PLATELET COUNT 293 K/MM3 (134-434); RBC 3.02 M/mm3 (3.60-5.2); RDW 16.8 % (11.6-15.6); WHITE BLOOD COUNT 9.4 K/mm3 (4.0-10.0)
[2018-07-21 12:31] LABS: ALBUMIN 2.3 g/dl (3.4-5.0); ALK PHOS 97 U/L (45-117); ANION GAP 12 MMOL/L (8-16); BILIRUBIN,TOTAL 1.4 mg/dL (0.2-1); BLOOD UREA NITROGEN 30 mg/dL (7-18); CALCIUM 8.7 mg/dL (8.5-10.1); CHLORIDE 95 mmol/L (98-107); CO2 28 mmol/L (21-32); CREATININE 4.2 mg/dL (0.55-1.3); GLUCOSE,RANDOM 159 mg/dL (74-106); PHOSPHOROUS 4.7 mg/dL (2.5-4.9); POTASSIUM 4.2 mmol/L (3.5-5.1); SGOT/AST 33 U/L (15-37); SGPT/ALT 24 U/L (13-61); SODIUM 135 mmol/L (136-145)
[2018-07-21] MEDS ORDERED: SODIUM CHLORIDE 250 ML IV PRN (12:37)
[2018-07-21] MEDS ORDERED: EPOETIN ALFA 10,000 UNIT/1 ML VIAL IVPUSH ONE (12:45)
--- NOTE | 2018-07-21 14:48 | PN ---
Progress Note, Physician History of Present Illness: stable vascular note note patient tolerating dialysis no other issues - Current Medication List Current Medications: Active Medications Acetaminophen (Tylenol -) 650 mg PO Q4H PRN PRN Reason: FEVER Last Admin: 07/21/18 06:58 Dose: 650 mg Atorvastatin Calcium (Lipitor -) 10 mg PO HS [facility] Last Admin: 07/20/18 21:49 Dose: 10 mg Heparin Sodium (Porcine) (Heparin -) 5,000 unit SQ TID [facility] Last Admin: 07/21/18 06:46 Dose: 5,000 unit Clindamycin Phosphate (Cleocin 600 Mg Premix Ivpb -) 600 mg in 50 mls @ 100 mls /hr IVPB Q8H-IV NOE; Protocol Last Admin: 07/21/18 09:23 Dose: 100 mls/hr Piperacillin Sod/Tazobactam (Sod 2.25 gm/ Dextrose) 50 mls @ 100 mls/hr IVPB Q8H-IV NOE; Protocol Last Admin: 07/21/18 09:22 Dose: 100 mls/hr Sodium Chloride (Normal Saline -) 250 mls @ 3,000 mls/hr IV PRN PRN PRN Reason: Hypotension during Dialysis Stop: 07/22/18 12:36 Oxycodone HCl (Roxicodone -) 5 mg PO Q4H PRN PRN Reason: PAIN LEVEL 7 - 10 Last Admin: 07/21/18 03:58 Dose: 5 mg Polyethylene Glycol (Miralax (For Daily Use) -) 17 gm PO BID [facility] Last Admin: 07/21/18 09:26 Dose: 17 gm Sevelamer Carbonate (Renvela -) 800 mg PO TIDCM [facility] Last Admin: 07/21/18 09:25 Dose: 800 mg - Objective Vital Signs: Vital Signs Temperature 98.8 F 07/21/18 11:25 Pulse Rate 68 07/21/18 14:30 Respiratory Rate 18 07/21/18 14:30 Blood Pressure 148/75 07/21/18 14:30 O2 Sat by Pulse Oximetry (%) 94 L 07/21/18 08:15 Constitutional: Yes: No Distress, Calm Cardiovascular: Yes: S1, S2 Gastrointestinal: Yes: Normal Bowel Sounds, Soft Musculoskeletal: Yes: WNL Extremities: Yes: Erythema (improving), Other (gangrene) Neurological: Yes: Alert, Oriented Psychiatric: Yes: Alert, Oriented Labs: CBC, BMP 07/21/18 11:30 07/21/18 11:30 Assessment/Plan 77 yo Female with PMH of ESRD (HD on ,,S), NIDDM, HTN, HLD, admitted with Left 4th toe wound and pain for 1 month. Necrotic left 4th Toe ESRD on HD NIDDM HTN HLD plan abx await for final plan podiatry rest as per the team
[2018-07-21] MEDS: ATORVASTATIN CA 10 MG TABLET (FP) PO SCH (21:18)
[2018-07-22] MEDS ORDERED: DEXTROSE 5%-WATER - 50 ML IVPB ONE ×3 (00:43→17:10)
[2018-07-22] MEDS ORDERED: PIPERACILLIN/TAZOBACTAM 2.25 GM VIAL IVPB ONE ×3 (00:43→17:10)
[2018-07-22] MEDS: PIPERACILLIN/TAZOB 2.25 GM 2.25 GM in DEXTROSE 5%-WATER - 50 ML IVPB SCH ×3 (01:09→17:25)
[2018-07-22] MEDS: CLINDAMYCIN 600MG PREMIX IVPB 600 MG/50 ML BAG IVPB SCH (01:09)
[2018-07-22] MEDS: oxyCODONE HCL 5 MG TABLET PO PRN ×3 (06:18→21:13)
[2018-07-22] MEDS: HEPARIN NA (PORCINE) 5,000 UNITS/ML 1ML VIAL SQ SCH ×3 (06:21→21:13)
[2018-07-22] MEDS: SEVELAMER CARBONATE 800 MG TAB (FP) PO SCH ×3 (08:43→17:24)
[2018-07-22] MEDS: POLYETHYLENE GLYCOL 3350 119 GM BTL PO SCH ×2 (09:12→21:15)
--- NOTE | 2018-07-22 09:57 | PN ---
Progress Note (short form) - Note Progress Note: Renal follow up for ESRD on HD Pt seen and examined at the bedside no acute complaints denies any sob, cp, abd pain s/p dialysis yesterday with 2kg UF Vital Signs Temperature 98.4 F 07/22/18 08:00 Pulse Rate 73 07/22/18 08:00 Respiratory Rate 18 07/22/18 08:00 Blood Pressure 147/75 07/22/18 08:00 O2 Sat by Pulse Oximetry (%) 94 L 07/21/18 20:47 NAD awake and alert No Le edema CBC, BMP 07/21/18 11:30 07/21/18 11:30 Current Medications Acetaminophen (Tylenol -) 650 mg PO Q4H PRN PRN Reason: FEVER Last Admin: 07/21/18 06:58 Dose: 650 mg Atorvastatin Calcium (Lipitor -) 10 mg PO HS [facility] Last Admin: 07/21/18 21:18 Dose: 10 mg Heparin Sodium (Porcine) (Heparin -) 5,000 unit SQ TID [facility] Last Admin: 07/22/18 06:21 Dose: 5,000 unit Clindamycin Phosphate (Cleocin 600 Mg Premix Ivpb -) 600 mg in 50 mls @ 100 mls /hr IVPB Q8H-IV NOE; Protocol Last Admin: 07/22/18 01:09 Dose: 100 mls/hr Piperacillin Sod/Tazobactam (Sod 2.25 gm/ Dextrose) 50 mls @ 100 mls/hr IVPB Q8H-IV NOE; Protocol Last Admin: 07/22/18 09:10 Dose: 100 mls/hr Sodium Chloride (Normal Saline -) 250 mls @ 3,000 mls/hr IV PRN PRN PRN Reason: Hypotension during Dialysis Stop: 07/22/18 12:36 Oxycodone HCl (Roxicodone -) 5 mg PO Q4H PRN PRN Reason: PAIN LEVEL 7 - 10 Last Admin: 07/22/18 06:18 Dose: 5 mg Polyethylene Glycol (Miralax (For Daily Use) -) 17 gm PO BID [facility] Last Admin: 07/22/18 09:12 Dose: 17 gm Sevelamer Carbonate (Renvela -) 800 mg PO TIDCM [facility] Last Admin: 07/22/18 08:43 Dose: 800 mg 77 year old AA woman with hx of ESRD on HD, DM, hypertension who presented with worsening infection of her foot #Gangrene of LE #suspected arterial insufficiency of LE #ESRD on HD #DM #Anemia #Renal Osteodystrophy s/p dialysis yesterday, no indication for STEREOTYPER today. Next planned dialysis is Monday for stress test as per cardiology for pre-procedure clearance will continue SHARA with HD for Anemia continue Abx as per Id pain control Asa Smith DO
--- NOTE | 2018-07-22 10:17 | PN ---
Progress Note, Physician History of Present Illness: No complaints Tele: No events - Current Medication List Current Medications: Active Medications Acetaminophen (Tylenol -) 650 mg PO Q4H PRN PRN Reason: FEVER Last Admin: 07/21/18 06:58 Dose: 650 mg Atorvastatin Calcium (Lipitor -) 10 mg PO HS [facility] Last Admin: 07/21/18 21:18 Dose: 10 mg Heparin Sodium (Porcine) (Heparin -) 5,000 unit SQ TID NO[facility] Last Admin: 07/22/18 06:21 Dose: 5,000 unit Piperacillin Sod/Tazobactam (Sod 2.25 gm/ Dextrose) 50 mls @ 100 mls/hr IVPB Q8H-IV NOE; Protocol Last Admin: 07/22/18 09:10 Dose: 100 mls/hr Sodium Chloride (Normal Saline -) 250 mls @ 3,000 mls/hr IV PRN PRN PRN Reason: Hypotension during Dialysis Stop: 07/22/18 12:36 Oxycodone HCl (Roxicodone -) 5 mg PO Q4H PRN PRN Reason: PAIN LEVEL 7 - 10 Last Admin: 07/22/18 06:18 Dose: 5 mg Polyethylene Glycol (Miralax (For Daily Use) -) 17 gm PO BID [facility] Last Admin: 07/22/18 09:12 Dose: 17 gm Sevelamer Carbonate (Renvela -) 800 mg PO TIDCM [facility] Last Admin: 07/22/18 08:43 Dose: 800 mg - Objective Vital Signs: Vital Signs Temperature 98.4 F 07/22/18 08:00 Pulse Rate 73 07/22/18 08:00 Respiratory Rate 18 07/22/18 08:00 Blood Pressure 147/75 07/22/18 08:00 O2 Sat by Pulse Oximetry (%) 94 L 07/21/18 20:47 Constitutional: Yes: No Distress, Calm Eyes: Yes: WNL HENT: Yes: WNL Neck: Yes: WNL Cardiovascular: Yes: Regular Rate and Rhythm Respiratory: Yes: CTA Bilaterally Gastrointestinal: Yes: WNL Extremities: Yes: Other (Left 4th oes gangrene) Labs: CBC, BMP 07/21/18 11:30 07/21/18 11:30 Assessment/Plan 77 yo A female with ESRD on HD, NIDDM, HTN and HPL now admitted with gangrenous left 4th toe that will require a peripheral angiogram with possible BKA. 1) Left toe gangrene -Abx as per primary team -Pre-op for ?BKA with abnormal ECG and inability to assess functional capacity -For pharma stress MPI tomorrow 2) HTN -Well controlled (not on meds) -Continue to follow HPL -Stable on low intensity statin ESRD -HD as per primary team
--- NOTE | 2018-07-22 12:01 | PN ---
Progress Note, Physician Chief Complaint: Ms Crain is without complaint. No cp, sob, n/v. +bm today. - Current Medication List Current Medications: Active Medications Acetaminophen (Tylenol -) 650 mg PO Q4H PRN PRN Reason: FEVER Last Admin: 07/21/18 06:58 Dose: 650 mg Atorvastatin Calcium (Lipitor -) 10 mg PO HS NOE Last Admin: 07/21/18 21:18 Dose: 10 mg Heparin Sodium (Porcine) (Heparin -) 5,000 unit SQ TID NOE Last Admin: 07/22/18 06:21 Dose: 5,000 unit Piperacillin Sod/Tazobactam (Sod 2.25 gm/ Dextrose) 50 mls @ 100 mls/hr IVPB Q8H-IV NOE; Protocol Last Admin: 07/22/18 09:10 Dose: 100 mls/hr Sodium Chloride (Normal Saline -) 250 mls @ 3,000 mls/hr IV PRN PRN PRN Reason: Hypotension during Dialysis Stop: 07/22/18 12:36 Oxycodone HCl (Roxicodone -) 5 mg PO Q4H PRN PRN Reason: PAIN LEVEL 7 - 10 Last Admin: 07/22/18 11:56 Dose: 5 mg Polyethylene Glycol (Miralax (For Daily Use) -) 17 gm PO BID [facility] Last Admin: 07/22/18 09:12 Dose: 17 gm Sevelamer Carbonate (Renvela -) 800 mg PO TIDCM [facility] Last Admin: 07/22/18 11:56 Dose: 800 mg - Objective Vital Signs: Vital Signs Temperature 36.9 C 07/22/18 08:00 Pulse Rate 73 07/22/18 08:00 Respiratory Rate 18 07/22/18 08:00 Blood Pressure 147/75 07/22/18 08:00 O2 Sat by Pulse Oximetry (%) 94 L 07/22/18 09:00 Constitutional: Yes: Well Nourished, No Distress, Calm Cardiovascular: Yes: Regular Rate and Rhythm. No: Gallop, Murmur, Rub Respiratory: Yes: Regular, CTA Bilaterally. No: Rales, Rhonchi, Wheezes Gastrointestinal: Yes: Normal Bowel Sounds, Soft. No: Distention, Tenderness Extremities: Yes: Other (L 4th toe ulceration, multiple areas of ulceration on extremities) Edema: No Labs: CBC, BMP 07/21/18 11:30 07/21/18 11:30 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 - OTHER DISORDERS OF CALCIUM METABOLISM (3) Chronic kidney disease, stage 5, kidney failure Code(s): N18.5 - CHRONIC KIDNEY DISEASE, STAGE 5 (4) GERD (gastroesophageal reflux disease) Code(s): K21.9 - GASTRO-ESOPHAGEAL REFLUX DISEASE WITHOUT ESOPHAGITIS (5) Hyperlipidemia Code(s): E78.5 - HYPERLIPIDEMIA, UNSPECIFIED Qualifiers: Hyperlipidemia type: pure hypercholesterolemia Qualified Code(s): E78.00 - Pure hypercholesterolemia, unspecified; E78.0 - Pure hypercholesterolemia (6) Hypertension Code(s): I10 - ESSENTIAL (PRIMARY) HYPERTENSION Qualifiers: Hypertension type: essential hypertension Qualified Code(s): I10 - Essential (primary) hypertension (7) Hypokalemia Code(s): E87.6 - HYPOKALEMIA Assessment/Plan (1) Gas gangrene of foot Assessment/Plan: -appreciate vascular surgery and podiatry assistance -continue zosyn and clindamycin -case d/w Dr Murphy, would benefit from stress testing prior to surgery -ECHO and stress test ordered for tomorrow -defer to surgery timing of R BKA Code(s): A48.0 - GAS GANGRENE (2) Calciphylaxis Assessment/Plan: -noted -nephrology following Code(s): E83.59 - OTHER DISORDERS OF CALCIUM METABOLISM (3) Chronic kidney disease, stage 5, kidney failure Assessment/Plan: -nephrology following -continue HD Code(s): N18.5 - CHRONIC KIDNEY DISEASE, STAGE 5 (4) GERD (gastroesophageal reflux disease) Assessment/Plan: -controlled Code(s): K21.9 - GASTRO-ESOPHAGEAL REFLUX DISEASE WITHOUT ESOPHAGITIS (5) Hyperlipidemia Assessment/Plan: -continue lipitor Code(s): E78.5 - HYPERLIPIDEMIA, UNSPECIFIED Qualifiers: Hyperlipidemia type: pure hypercholesterolemia Qualified Code(s): E78.00 - Pure hypercholesterolemia, unspecified; E78.0 - Pure hypercholesterolemia (6) Hypertension Assessment/Plan: -controlled today -continue current management Code(s): I10 - ESSENTIAL (PRIMARY) HYPERTENSION Qualifiers: Hypertension type: essential hypertension Qualified Code(s): I10 - Essential (primary) hypertension (7) Hypokalemia Assessment/Plan: -resolved Code(s): E87.6 - HYPOKALEMIA
--- NOTE | 2018-07-22 14:01 | PN ---
Progress Note, Physician History of Present Illness: stable no complaints - Current Medication List Current Medications: Active Medications Acetaminophen (Tylenol -) 650 mg PO Q4H PRN PRN Reason: FEVER Last Admin: 07/21/18 06:58 Dose: 650 mg Atorvastatin Calcium (Lipitor -) 10 mg PO HS NOE Last Admin: 07/21/18 21:18 Dose: 10 mg Heparin Sodium (Porcine) (Heparin -) 5,000 unit SQ TID NO[facility] Last Admin: 07/22/18 13:41 Dose: 5,000 unit Piperacillin Sod/Tazobactam (Sod 2.25 gm/ Dextrose) 50 mls @ 100 mls/hr IVPB Q8H-IV NOE; Protocol Last Admin: 07/22/18 09:10 Dose: 100 mls/hr Oxycodone HCl (Roxicodone -) 5 mg PO Q4H PRN PRN Reason: PAIN LEVEL 7 - 10 Last Admin: 07/22/18 11:56 Dose: 5 mg Polyethylene Glycol (Miralax (For Daily Use) -) 17 gm PO BID [facility] Last Admin: 07/22/18 09:12 Dose: 17 gm Sevelamer Carbonate (Renvela -) 800 mg PO TIDCM [facility] Last Admin: 07/22/18 11:56 Dose: 800 mg - Objective Vital Signs: Vital Signs Temperature 98.4 F 07/22/18 08:00 Pulse Rate 73 07/22/18 08:00 Respiratory Rate 18 07/22/18 08:00 Blood Pressure 147/75 07/22/18 08:00 O2 Sat by Pulse Oximetry (%) 94 L 07/22/18 09:00 Constitutional: Yes: No Distress, Calm Cardiovascular: Yes: S1, S2 Respiratory: Yes: Regular, CTA Bilaterally Gastrointestinal: Yes: Normal Bowel Sounds, Soft Musculoskeletal: Yes: WNL Extremities: Yes: Other Wound/Incision: Yes: Other Neurological: Yes: Alert, Oriented Psychiatric: Yes: Alert, Oriented Labs: CBC, BMP 07/21/18 11:30 07/21/18 11:30 Assessment/Plan Problem List - Problems (1) gangrene of foot Code(s): A48.0 - GAS GANGRENE (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 - OTHER DISORDERS OF CALCIUM METABOLISM (3) Chronic kidney disease, stage 5, kidney failure Code(s): N18.5 - CHRONIC KIDNEY DISEASE, STAGE 5 (4) GERD (gastroesophageal reflux disease) Code(s): K21.9 - GASTRO-ESOPHAGEAL REFLUX DISEASE WITHOUT ESOPHAGITIS (5) Hyperlipidemia Code(s): E78.5 - HYPERLIPIDEMIA, UNSPECIFIED Qualifiers: Hyperlipidemia type: pure hypercholesterolemia Qualified Code(s): E78.00 - Pure hypercholesterolemia, unspecified; E78.0 - Pure hypercholesterolemia (6) Hypertension Code(s): I10 - ESSENTIAL (PRIMARY) HYPERTENSION Qualifiers: Hypertension type: essential hypertension Qualified Code(s): I10 - Essential (primary) hypertension (7) Osteoarthritis Code(s): M19.90 - UNSPECIFIED OSTEOARTHRITIS, UNSPECIFIED SITE (8) Rheumatoid arthritis involving both hips Code(s): M06.9 - RHEUMATOID ARTHRITIS, UNSPECIFIED (9) Hypokalemia Code(s): E87.6 - HYPOKALEMIA plan continue abx await for final paln wound care dialysis rest as per the team
[2018-07-22] MEDS: ACETAMINOPHEN 325 MG TABLET (FP) PO PRN (17:06)
[2018-07-22] MEDS: ATORVASTATIN CA 10 MG TABLET (FP) PO SCH (21:13)
[2018-07-23] MEDS ORDERED: DEXTROSE 5%-WATER - 50 ML IVPB ONE ×3 (00:32→16:57)
[2018-07-23] MEDS ORDERED: PIPERACILLIN/TAZOBACTAM 2.25 GM VIAL IVPB ONE ×3 (00:32→16:56)
[2018-07-23] MEDS: PIPERACILLIN/TAZOB 2.25 GM 2.25 GM in DEXTROSE 5%-WATER - 50 ML IVPB SCH ×3 (01:01→17:00)
[2018-07-23] MEDS: HEPARIN NA (PORCINE) 5,000 UNITS/ML 1ML VIAL SQ SCH ×3 (06:14→21:45)
[2018-07-23 06:52] LABS: ANION GAP 8 MMOL/L (8-16); BLOOD UREA NITROGEN 22 mg/dL (7-18); CALCIUM 8.8 mg/dL (8.5-10.1); CHLORIDE 98 mmol/L (98-107); CO2 30 mmol/L (21-32); CREATININE 3.9 mg/dL (0.55-1.3); GLUCOSE,RANDOM 67 mg/dL (74-106); MAGNESIUM 2.2 mg/dL (1.8-2.4); PHOSPHOROUS 4.4 mg/dL (2.5-4.9); POTASSIUM 4.6 mmol/L (3.5-5.1); SODIUM 136 mmol/L (136-145)
[2018-07-23 06:53] LABS: BASO % 0.6 % (0-2.0); HEMATOCRIT 29.2 % (32.4-45.2); HEMOGLOBIN 9.4 GM/dL (10.7-15.3); LYMPH % 15.6 % (8-40); MCH 30.6 pg (25.7-33.7); MCHC 32.2 g/dl (32.0-36.0); MEAN CELL VOLUME 94.9 fl (80-96); MEAN PLT VOLUME 7.2 fl (7.5-11.1); MONO % 11.4 % (3.8-10.2); NEUT % 70.4 % (42.8-82.8); PLATELET COUNT 249 K/MM3 (134-434); RBC 3.08 M/mm3 (3.60-5.2); RDW 17.1 % (11.6-15.6); WHITE BLOOD COUNT 9.5 K/mm3 (4.0-10.0)
[2018-07-23] MEDS: oxyCODONE HCL 5 MG TABLET PO PRN ×3 (08:33→18:06)
[2018-07-23] MEDS: SEVELAMER CARBONATE 800 MG TAB (FP) PO SCH ×3 (08:44→17:00)
--- NOTE | 2018-07-23 08:52 | SPA.PREOP ---
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 Planned Procedure: LLE angiogram, possible angioplasty, possible stent Surgeon: Boris Rodriguez Last Vital Signs Temp Pulse Resp BP Pulse Ox 97.6 F 77 20 163/90 98 07/23/18 06:00 07/23/18 06:00 07/23/18 06:00 07/23/18 06:00 07/22/18 21:00 Lab Results WBC 9.5 K/mm3 (4.0-10.0) 07/23/18 05:30 RBC 3.08 M/mm3 (3.60-5.2) L 07/23/18 05:30 Hgb 9.4 GM/dL (10.7-15.3) L 07/23/18 05:30 Hct 29.2 % (32.4-45.2) L 07/23/18 05:30 MCV 94.9 fl (80-96) 07/23/18 05:30 MCHC 32.2 g/dl (32.0-36.0) 07/23/18 05:30 RDW 17.1 % (11.6-15.6) H 07/23/18 05:30 Plt Count 249 K/MM3 (134-434) 07/23/18 05:30 Sodium 136 mmol/L (136-145) 07/23/18 05:30 Potassium 4.6 mmol/L (3.5-5.1) 07/23/18 05:30 Chloride 98 mmol/L (98-107) 07/23/18 05:30 Carbon Dioxide 30 mmol/L (21-32) 07/23/18 05:30 Anion Gap 8 MMOL/L (8-16) 07/23/18 05:30 BUN 22 mg/dL (7-18) H 07/23/18 05:30 Creatinine 3.9 mg/dL (0.55-1.3) H 07/23/18 05:30 Random Glucose 67 mg/dL (74-106) L 07/23/18 05:30 Calcium 8.8 mg/dL (8.5-10.1) 07/23/18 05:30 - ASSESSMENT/PLAN 1. Make NPO after midnight except po meds 2. GI/DVT PPX 3. Medical optimization / clearance 4. Type and screen 5. Consent to be obtained by surgeon after risks, benefits and alternatives discussed with patient and or Health Care Proxy. 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
--- NOTE | 2018-07-23 08:57 | PN ---
Progress Note, Physician - Current Medication List Current Medications: Active Medications Acetaminophen (Tylenol -) 650 mg PO Q4H PRN PRN Reason: FEVER Last Admin: 07/22/18 17:06 Dose: 650 mg Atorvastatin Calcium (Lipitor -) 10 mg PO HS [facility] Last Admin: 07/22/18 21:13 Dose: 10 mg Heparin Sodium (Porcine) (Heparin -) 5,000 unit SQ TID [facility] Last Admin: 07/23/18 06:14 Dose: 5,000 unit Piperacillin Sod/Tazobactam (Sod 2.25 gm/ Dextrose) 50 mls @ 100 mls/hr IVPB Q8H-IV NOE; Protocol Last Admin: 07/23/18 01:01 Dose: 100 mls/hr Oxycodone HCl (Roxicodone -) 5 mg PO Q4H PRN PRN Reason: PAIN LEVEL 7 - 10 Last Admin: 07/23/18 08:33 Dose: 5 mg Polyethylene Glycol (Miralax (For Daily Use) -) 17 gm PO BID [facility] Last Admin: 07/22/18 21:15 Dose: Not Given Sevelamer Carbonate (Renvela -) 800 mg PO TIDCM [facility] Last Admin: 07/23/18 08:44 Dose: Not Given - Objective Vital Signs: Vital Signs Temperature 98.2 F 07/23/18 08:30 Pulse Rate 74 07/23/18 08:30 Respiratory Rate 20 07/23/18 08:30 Blood Pressure 142/65 07/23/18 08:30 O2 Sat by Pulse Oximetry (%) 97 07/23/18 08:30 Labs: CBC, BMP 07/23/18 05:30 07/23/18 05:30 Assessment/Plan 77 yo A female with ESRD on HD, NIDDM, HTN and HPL now admitted with gangrenous left 4th toe that will require a peripheral angiogram with possible BKA. Left toe gangrene, preop for angiogram, ? angioplasty, ? BKA: -Abx as per primary team -Pre-op for ?BKA with abnormal ECG and inability to assess functional capacity -For pharma stress MPI tomorrow HTN -reasonably controlled (not on meds) -observe trend HPL -Stable on low intensity statin ESRD -HD as per primary team
[2018-07-23] MEDS: POLYETHYLENE GLYCOL 3350 119 GM BTL PO SCH ×2 (10:00→21:45)
[2018-07-23] MEDS ORDERED: REGADENOSON 0.4 MG/5 ML PRE-FILLED SYRINGE IVPUSH ONE ×2 (10:00→10:03)
--- NOTE | 2018-07-23 10:53 | ECHO ---
Name: REJI LY Exam:Adult Echocardiogram Study Date: 07/23/2018 07:26 AM Age: 77 yrs Reason For Study: LV Function Height: 65 in Weight: 159 lb BSA: 1.8 m2 MMode/2D Measurements & Calculations IVSd: 2.2 cm Ao root diam: 3.1 cm LVIDd: 3.1 cm LA dimension: 2.4 cm LVIDs: 2.1 cm LVPWd: 1.4 cm EDV(Teich): 38.4 ml LAV (MOD-bp): 66.8 ml ESV(Teich): 14.8 ml Doppler Measurements & Calculations MV E max emeka: 107.0 cm/sec AI P1/2t: 715.4 msec MV A max emeka: 101.9 cm/sec MV E/A: 1.1 MV dec time: 0.19 sec AI max emeka: 260.6 cm/sec TR max emeka: 133.0 cm/sec AI max P.2 mmHg TR max P.1 mmHg AI dec slope: 106.7 cm/sec2 Med Peak E' Emeka: 7.7 cm/sec PI Vmax: 164.2 cm/sec Med E/e': 13.9 Lat Peak E' Emeka: 6.2 cm/sec Lat E/e': 17.3 Procedure A complete two-dimensional transthoracic echocardiogram was performed (2D, M-mode, Doppler and color flow Doppler). Left Ventricle The left ventricle is normal in size. There is severe concentric left ventricular hypertrophy. Left ventricular systolic function is normal. Ejection Fraction = 60-65%. No regional wall motion abnormal ities noted. Right Ventricle The right ventricle is normal size. The right ventricular systolic function is normal. Atria The left atrial size is normal. Right atrial size is normal. Mitral Valve There is mild mitral annular calcification. There is mild mitral regurgitation. Tricuspid Valve The tricuspid valve is normal in structure and function. No tricuspid regurgitation. Aortic Valve There is mild aortic sclerosis.;. Mild aortic regurgitation. Pulmonic Valve The pulmonic valve is not well visualized. Mild pulmonic valvular regurgitation. Great Vessels The aortic root is normal size. Pericardium/Pleura There is no pericardial effusion. Interpretation Summary The left ventricle is normal in size. There is severe concentric left ventricular hypertrophy. Left ventricular systolic function is normal. No regional wall motion abnormalities noted. Ejection Fraction = 60-65%. The right ventricular systolic function is normal. The left atrial size is normal. Right atrial size is normal. There is mild mitral annular calcification. There is mild mitral regurgitation. There is mild aortic sclerosis. Mild aortic regurgitation. Mild pulmonic valvular regurgitation. There is no pericardial effusion. Previous study is not available for comparison Tony Ruiz MD 07/23/2018 10:51 AM
--- NOTE | 2018-07-23 13:40 | PN ---
Progress Note, Physician History of Present Illness: patient stable patient echo done today cardiac clearance probably for surgery today - Current Medication List Current Medications: Active Medications Acetaminophen (Tylenol -) 650 mg PO Q4H PRN PRN Reason: FEVER Last Admin: 07/22/18 17:06 Dose: 650 mg Atorvastatin Calcium (Lipitor -) 10 mg PO HS NOE Last Admin: 07/22/18 21:13 Dose: 10 mg Heparin Sodium (Porcine) (Heparin -) 5,000 unit SQ TID NOE Last Admin: 07/23/18 13:11 Dose: 5,000 unit Piperacillin Sod/Tazobactam (Sod 2.25 gm/ Dextrose) 50 mls @ 100 mls/hr IVPB Q8H-IV NOE; Protocol Last Admin: 07/23/18 13:08 Dose: 100 mls/hr Oxycodone HCl (Roxicodone -) 5 mg PO Q4H PRN PRN Reason: PAIN LEVEL 7 - 10 Last Admin: 07/23/18 13:11 Dose: 5 mg Polyethylene Glycol (Miralax (For Daily Use) -) 17 gm PO BID [facility] Last Admin: 07/23/18 10:00 Dose: Not Given Sevelamer Carbonate (Renvela -) 800 mg PO TIDCM [facility] Last Admin: 07/23/18 13:07 Dose: 800 mg - Objective Vital Signs: Vital Signs Temperature 98.2 F 07/23/18 08:30 Pulse Rate 74 07/23/18 08:30 Respiratory Rate 20 07/23/18 08:30 Blood Pressure 142/65 07/23/18 08:30 O2 Sat by Pulse Oximetry (%) 97 07/23/18 08:30 Constitutional: Yes: No Distress, Calm Cardiovascular: Yes: Regular Rate and Rhythm Respiratory: Yes: Regular, CTA Bilaterally Gastrointestinal: Yes: Normal Bowel Sounds, Soft Musculoskeletal: Yes: WNL Extremities: Yes: Other Wound/Incision: Yes: Other Neurological: Yes: Alert, Oriented Psychiatric: Yes: Alert, Oriented Labs: CBC, BMP 07/23/18 05:30 07/23/18 05:30 Assessment/Plan 77 yo Female with PMH of ESRD (HD on T,Th,S), NIDDM, HTN, HLD, admitted with Left 4th toe wound and pain for 1 month. Necrotic left 4th Toe ESRD on HD NIDDM HTN HLD plan continue abx await for surgery rest as as per the team cx to be send post op
[2018-07-23] MEDS ORDERED: VANCOMYCIN 1,250 MG in DEXTROSE 5%-WATER - 250 ML IVPB ONE (13:43)
--- NOTE | 2018-07-23 15:14 | PN ---
Progress Note (short form) - Note Progress Note: Progress Note, Physician History of Present Illness: No complaints, no chest pain palps. dizziness, lightheadedness Tele: No events, sinus Current Medications Acetaminophen (Tylenol -) 650 mg PO Q4H PRN PRN Reason: FEVER Last Admin: 07/22/18 17:06 Dose: 650 mg Atorvastatin Calcium (Lipitor -) 10 mg PO HS [facility] Last Admin: 07/22/18 21:13 Dose: 10 mg Heparin Sodium (Porcine) (Heparin -) 5,000 unit SQ TID NOE Last Admin: 07/23/18 13:11 Dose: 5,000 unit Piperacillin Sod/Tazobactam (Sod 2.25 gm/ Dextrose) 50 mls @ 100 mls/hr IVPB Q8H-IV NOE; Protocol Last Admin: 07/23/18 13:08 Dose: 100 mls/hr Oxycodone HCl (Roxicodone -) 5 mg PO Q4H PRN PRN Reason: PAIN LEVEL 7 - 10 Last Admin: 07/23/18 13:11 Dose: 5 mg Polyethylene Glycol (Miralax (For Daily Use) -) 17 gm PO BID [facility] Last Admin: 07/23/18 10:00 Dose: Not Given Sevelamer Carbonate (Renvela -) 800 mg PO TIDCM [facility] Last Admin: 07/23/18 13:07 Dose: 800 mg Vital Signs Period Temp Pulse Resp BP Sys/Jha Pulse Ox Last 24 Hr 97.6 F-98.8 F 71-78 18-20 134-187/54-90 97-98 Constitutional: Yes: No Distress, Calm Eyes: Yes: WNL HENT: Yes: WNL Neck: Yes: WNL Cardiovascular: Yes: Regular Rate and Rhythm Respiratory: Yes: CTA Bilaterally Gastrointestinal: Yes: WNL Extremities: Yes: Other (Left 4th oes gangrene) echo 07/2018 severe conc LVH, nl LVfunction, mild MR, mild AR mibi 07/2018 mod zone of inferolateral fixed defect c/w diaphragmatic attenuation, EF 87% Assessment/Plan 77 yo A female with ESRD on HD, NIDDM, HTN and HPL now admitted with gangrenous left 4th toe that will require a peripheral angiogram with possible BKA. Left toe gangrene -Abx as per primary team -Pre-op for ?BKA with abnormal ECG and inability to assess functional capacity - echo shows nl EF, mibi with no ischemia, no further testing prior to peripheral angiogram and possible BKA, may proceed as planned HTN - controlled (not on meds) -Continue to follow HPL -Stable on low intensity statin ESRD -HD as per primary team
--- NOTE | 2018-07-23 15:53 | PN ---
Progress Note, Physician Chief Complaint: Ms Crain is without complaint. No cp, sob, n/v. - Current Medication List Current Medications: Active Medications Acetaminophen (Tylenol -) 650 mg PO Q4H PRN PRN Reason: FEVER Last Admin: 07/22/18 17:06 Dose: 650 mg Atorvastatin Calcium (Lipitor -) 10 mg PO HS [facility] Last Admin: 07/22/18 21:13 Dose: 10 mg Heparin Sodium (Porcine) (Heparin -) 5,000 unit SQ TID NOE Last Admin: 07/23/18 13:11 Dose: 5,000 unit Piperacillin Sod/Tazobactam (Sod 2.25 gm/ Dextrose) 50 mls @ 100 mls/hr IVPB Q8H-IV NOE; Protocol Last Admin: 07/23/18 13:08 Dose: 100 mls/hr Polyethylene Glycol (Miralax (For Daily Use) -) 17 gm PO BID [facility] Last Admin: 07/23/18 10:00 Dose: Not Given Sevelamer Carbonate (Renvela -) 800 mg PO TIDCM [facility] Last Admin: 07/23/18 13:07 Dose: 800 mg - Objective Vital Signs: Vital Signs Temperature 36.7 C 07/23/18 14:20 Pulse Rate 78 07/23/18 14:20 Respiratory Rate 18 07/23/18 14:20 Blood Pressure 187/77 H 07/23/18 14:20 O2 Sat by Pulse Oximetry (%) 97 07/23/18 08:30 Constitutional: Yes: Well Nourished, No Distress, Calm Cardiovascular: Yes: Regular Rate and Rhythm. No: Gallop, Murmur, Rub Respiratory: Yes: Regular, CTA Bilaterally. No: Rales, Rhonchi, Wheezes Gastrointestinal: Yes: Normal Bowel Sounds, Soft. No: Distention, Tenderness Extremities: Yes: Other (gangrenous 4th toe L foot) Edema: No Labs: CBC, BMP 07/23/18 05:30 07/23/18 05:30 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 - OTHER DISORDERS OF CALCIUM METABOLISM (3) Chronic kidney disease, stage 5, kidney failure Code(s): N18.5 - CHRONIC KIDNEY DISEASE, STAGE 5 (4) GERD (gastroesophageal reflux disease) Code(s): K21.9 - GASTRO-ESOPHAGEAL REFLUX DISEASE WITHOUT ESOPHAGITIS (5) Hyperlipidemia Code(s): E78.5 - HYPERLIPIDEMIA, UNSPECIFIED Qualifiers: Hyperlipidemia type: pure hypercholesterolemia Qualified Code(s): E78.00 - Pure hypercholesterolemia, unspecified; E78.0 - Pure hypercholesterolemia (6) Hypertension Code(s): I10 - ESSENTIAL (PRIMARY) HYPERTENSION Qualifiers: Hypertension type: essential hypertension Qualified Code(s): I10 - Essential (primary) hypertension (7) Hypokalemia Code(s): E87.6 - HYPOKALEMIA Assessment/Plan (1) Gas gangrene of foot Assessment/Plan: -appreciate vascular surgery and podiatry assistance -continue zosyn and clindamycin -stress test and ECHO performed and reviewed -vascular surgery to decide on timing of BKA Code(s): A48.0 - GAS GANGRENE (2) Calciphylaxis Assessment/Plan: -noted -nephrology following Code(s): E83.59 - OTHER DISORDERS OF CALCIUM METABOLISM (3) Chronic kidney disease, stage 5, kidney failure Assessment/Plan: -nephrology following -continue HD Code(s): N18.5 - CHRONIC KIDNEY DISEASE, STAGE 5 (4) GERD (gastroesophageal reflux disease) Assessment/Plan: -controlled Code(s): K21.9 - GASTRO-ESOPHAGEAL REFLUX DISEASE WITHOUT ESOPHAGITIS (5) Hyperlipidemia Assessment/Plan: -continue lipitor Code(s): E78.5 - HYPERLIPIDEMIA, UNSPECIFIED Qualifiers: Hyperlipidemia type: pure hypercholesterolemia Qualified Code(s): E78.00 - Pure hypercholesterolemia, unspecified; E78.0 - Pure hypercholesterolemia (6) Hypertension Assessment/Plan: -elevated today -may need HD today for control Code(s): I10 - ESSENTIAL (PRIMARY) HYPERTENSION Qualifiers: Hypertension type: essential hypertension Qualified Code(s): I10 - Essential (primary) hypertension (7) Hypokalemia Assessment/Plan: -resolved Code(s): E87.6 - HYPOKALEMIA Case d/w resident who is also seeing today and plan formulated.
--- NOTE | 2018-07-23 16:02 | PN ---
Physical Exam: SUBJECTIVE: Patient seen and examined after she had the stress test this afternoon. No complaints. Denies chest pain, sob, cough, palpitation, abdominal pain, nausea or vomiting. No acute overnight events. OBJECTIVE: Vital Signs Period Temp Pulse Resp BP Sys/Jha Pulse Ox Last 24 Hr 97.6 F-98.8 F 71-78 18-20 134-187/54-90 97-98 GENERAL: Elderly female, is awake, alert, and fully oriented, in no acute distress. HEAD: Normal with no signs of trauma. EYES: EOM intact ,no pallor or icterus. ENT: Ears normal, moist mucous membranes. NECK: Supple. LUNGS: B.L Breath sounds equal, clear to auscultation bilaterally, no wheezes, no crackles, no accessory muscle use. HEART: Regular rate and rhythm, S1, S2 without murmur, rub or gallop. ABDOMEN: Soft, nontender, nondistended, normoactive bowel sounds, no guarding, no rebound, no hepatosplenomegaly, no masses. UPPER EXTREMITIES: Left upper forearm-fistula functioning, 2+ pulses, warm, well -perfused, no edema. LOWER EXTREMITIES: Dressing applied over the LLE (patient refused to be examined as dressing had just been placed) NEUROLOGICAL: Cranial nerves II through XII grossly intact. Normal speech, gait not observed. PSYCH: Normal mood, normal affect. SKIN: Warm, dry, normal turgor, no rashes or lesions noted Laboratory Results - last 24 hr 07/22/18 07/22/18 07/23/18 17:01 20:37 05:09 WBC RBC Hgb Hct MCV MCH MCHC RDW Plt Count MPV Absolute Neuts (auto) Neutrophils % Lymphocytes % Monocytes % Eosinophils % Basophils % Nucleated RBC % Sodium Potassium Chloride Carbon Dioxide Anion Gap BUN Creatinine Creat Clearance w eGFR POC Glucometer 88 119 77 Random Glucose Calcium Phosphorus Magnesium 07/23/18 07/23/18 07/23/18 05:30 05:30 13:02 WBC 9.5 RBC 3.08 L Hgb 9.4 L Hct 29.2 L MCV 94.9 MCH 30.6 MCHC 32.2 RDW 17.1 H Plt Count 249 MPV 7.2 L Absolute Neuts (auto) 6.7 Neutrophils % 70.4 Lymphocytes % 15.6 D Monocytes % 11.4 H Eosinophils % 2.0 Basophils % 0.6 Nucleated RBC % 0 Sodium 136 Potassium 4.6 Chloride 98 Carbon Dioxide 30 Anion Gap 8 BUN 22 H Creatinine 3.9 H Creat Clearance w eGFR 11.15 POC Glucometer 89 Random Glucose 67 L Calcium 8.8 Phosphorus 4.4 Magnesium 2.2 Active Medications Generic Name Dose Route Start Last Admin Trade Name Freq PRN Reason Stop Dose Admin Acetaminophen 650 mg 07/19/18 04:17 07/22/18 17:06 Tylenol - PO 650 mg Q4H PRN Administration FEVER Atorvastatin Calcium 10 mg 07/19/18 22:00 07/22/18 21:13 Lipitor - PO 10 mg HS NOE Administration Heparin Sodium (Porcine) 5,000 unit 07/19/18 06:00 07/23/18 13:11 Heparin - SQ 5,000 unit TID NOE Administration Piperacillin Sod/Tazobactam 50 mls @ 100 mls/hr 07/19/18 10:00 07/23/18 13:08 Sod 2.25 gm/ Dextrose IVPB 100 mls/hr Q8H-IV NOE Administration Protocol Oxycodone HCl 5 mg 07/23/18 15:53 Roxicodone - PO Q4H PRN PAIN LEVEL 6-10 Polyethylene Glycol 17 gm 07/20/18 10:45 07/23/18 10:00 Miralax (For Daily Use) - PO Not Given BID NOE Sevelamer Carbonate 800 mg 07/19/18 08:00 07/23/18 13:07 Renvela - PO 800 mg TIDCM NOE Administration ASSESSMENT/PLAN: Patient is a 77 year old female PMHx of ESRD (T,Th,S), DM, HTN, HLD, admitted with Left 4th toe wound and pain for a month. 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 EF 87 % NPO after breakfast Type and screen Medically cleared from cardio standpoint. Ortho planning for amputation. CT angio at 4pm tomorrow. # Hypertension-controlled Diet controlled # ESRD (TTS) Creatinine 4.2---> 3.9 Continue Sevelamer Avoid nephrotoxic drugs # Hyperlipidemia Continue Statin 10mg # FEN Not on IV fluids, Can tolerate PO Electrolytes WNl Renal diet # Prophylaxis For DVT: ON Heparin sq 5000 TID For GI: Not indicated # Code Status: Full Code Illness, Investigation and PLan of care explained to the patient. She verbalized understanding. Case discussed with Dr. Shaw. Problem List - Problems (1) Chronic kidney disease, stage 5, kidney failure Code(s): N18.5 - CHRONIC KIDNEY DISEASE, STAGE 5 (2) DVT prophylaxis Code(s): [id number] - (3) Foot ulcer Code(s): L97.509 - NON-PRESSURE CHRONIC ULCER OTH PRT UNSP FOOT W UNSP SEVERITY Qualifiers: Laterality: left Non-pressure ulcer stage: unspecified non-pressure ulcer stage Qualified Code(s): L97.529 - Non-pressure chronic ulcer of other part of left foot with unspecified severity (4) Gas gangrene of foot Code(s): A48.0 - GAS GANGRENE (5) Hypokalemia Code(s): E87.6 - HYPOKALEMIA (6) ESRD (end stage renal disease) Code(s): N18.6 - END STAGE RENAL DISEASE Visit type - Emergency Visit Emergency Visit: Yes ED Registration Date: 07/18/18 Care time: The patient presented to the Emergency Department on the above date and was hospitalized for further evaluation of their emergent condition. - New Patient This patient is new to me today: Yes Date on this admission: 07/23/18 - Critical Care Critical Care patient: No - Discharge Referral Referred to [facility] Med P.C.: No
[2018-07-23 17:05] LABS: INR 1.16 (0.83-1.09); PROTHROMBIN TIME (PATIENT) 13.7 SEC (9.7-13.0)
[2018-07-23] MEDS ORDERED: PT OWN MED DRAWER 7, Y5N ONE (18:57)
--- NOTE | 2018-07-23 19:33 | PN ---
Progress Note (short form) - Note Progress Note: Patient seen in bed. vss, Tmax 98.2 +gangarene, +pvd, -drainage, +dry, extending to mid foot over 4th metatarsal, wbc=9.5 PVD Gangarene Angiogram tomorrow. Pt being optimized for vascular intervention than debridement of foot once re-vascularized. Will follow.
[2018-07-23] MEDS: ATORVASTATIN CA 10 MG TABLET (FP) PO SCH (21:45)
[2018-07-23] MEDS: CLINDAMYCIN 600MG PREMIX IVPB 600 MG/50 ML BAG IVPB SCH (21:45)
[2018-07-24] MEDS ORDERED: DEXTROSE 5%-WATER - 50 ML IVPB ONE ×2 (01:23→08:59)
[2018-07-24] MEDS ORDERED: PIPERACILLIN/TAZOBACTAM 2.25 GM VIAL IVPB ONE ×2 (01:23→08:59)
[2018-07-24] MEDS: PIPERACILLIN/TAZOB 2.25 GM 2.25 GM in DEXTROSE 5%-WATER - 50 ML IVPB SCH ×2 (01:30→09:03)
[2018-07-24] MEDS: CLINDAMYCIN 600MG PREMIX IVPB 600 MG/50 ML BAG IVPB SCH ×3 (02:31→22:03)
[2018-07-24] MEDS ORDERED: SODIUM CHLORIDE 250 ML IV PRN ×2 (06:00→23:00)
[2018-07-24] MEDS ORDERED: EPOETIN ALFA 10,000 UNIT/1 ML VIAL IVPUSH ONE ×2 (06:00→23:00)
[2018-07-24] MEDS: HEPARIN NA (PORCINE) 5,000 UNITS/ML 1ML VIAL SQ SCH ×2 (06:42→22:03)
[2018-07-24] MEDS: SEVELAMER CARBONATE 800 MG TAB (FP) PO SCH ×2 (09:02→12:00)
[2018-07-24] MEDS: POLYETHYLENE GLYCOL 3350 119 GM BTL PO SCH ×2 (09:03→22:03)
[2018-07-24] MEDS: oxyCODONE HCL 5 MG TABLET PO PRN (09:04)
--- NOTE | 2018-07-24 10:40 | PN ---
Progress Note (short form) - Note Progress Note: Renal follow up for ESRD on HD Pt seen and examined at the bedside no acute complaints Vital Signs Temperature 97.5 F L 07/24/18 08:40 Pulse Rate 84 07/24/18 08:40 Respiratory Rate 20 07/24/18 08:40 Blood Pressure 149/62 07/24/18 08:40 O2 Sat by Pulse Oximetry (%) 93 L 07/23/18 21:00 NAD awake and alert no Le edema CBC, BMP 07/23/18 05:30 07/23/18 05:30 77 year old AA woman with hx of ESRD on HD, DM, hypertension who presented with worsening infection of her foot #Gangrene of LE #suspected arterial insufficiency of LE #ESRD on HD #DM #Anemia #Renal Osteodystrophy for Hd today with UF as tolerated angiogram to be done today but later in the afternoon, if any signs of volume overload following angiogram can arrange for additional HD/UF tomorrow SHARA with HD for management of edema Asa Smith DO
--- NOTE | 2018-07-24 10:45 | PN ---
Progress Note (short form) - Note Progress Note: History of Present Illness: no chest pain, palps, dizziness, lightheadedness Current Medications Acetaminophen (Tylenol -) 650 mg PO Q4H PRN PRN Reason: FEVER Last Admin: 07/22/18 17:06 Dose: 650 mg Atorvastatin Calcium (Lipitor -) 10 mg PO HS NOE Last Admin: 07/23/18 21:45 Dose: 10 mg Epoetin Kin (Procrit -) 10,000 unit IVPUSH ONCE ONE Stop: 07/24/18 06:01 Heparin Sodium (Porcine) (Heparin -) 5,000 unit SQ TID NOE Last Admin: 07/24/18 06:42 Dose: Not Given Piperacillin Sod/Tazobactam (Sod 2.25 gm/ Dextrose) 50 mls @ 100 mls/hr IVPB Q8H-IV NOE; Protocol Last Admin: 07/24/18 09:03 Dose: 100 mls/hr Clindamycin Phosphate (Cleocin 600 Mg Premix Ivpb -) 600 mg in 50 mls @ 100 mls /hr IVPB Q6H-IV NOE; Protocol Last Admin: 07/24/18 09:03 Dose: 100 mls/hr Sodium Chloride (Normal Saline -) 250 mls @ 3,000 mls/hr IV PRN PRN PRN Reason: Hypotension during Dialysis Stop: 07/25/18 06:00 Oxycodone HCl (Roxicodone -) 5 mg PO Q4H PRN PRN Reason: PAIN LEVEL 6-10 Last Admin: 07/24/18 09:04 Dose: 5 mg Polyethylene Glycol (Miralax (For Daily Use) -) 17 gm PO BID NOE Last Admin: 07/24/18 09:03 Dose: 17 gm Sevelamer Carbonate (Renvela -) 800 mg PO TIDCM NOE Last Admin: 07/24/18 09:02 Dose: 800 mg Vital Signs Period Temp Pulse Resp BP Sys/Jha Pulse Ox Last 24 Hr 97.5 F-98.5 F 75-84 18-20 139-187/62-88 93 Constitutional: Yes: No Distress, Calm Eyes: Yes: WNL HENT: Yes: WNL Neck: Yes: WNL Cardiovascular: Yes: Regular Rate and Rhythm Respiratory: Yes: CTA Bilaterally Gastrointestinal: Yes: WNL Extremities: Yes: Other (Left 4th oes gangrene) echo 07/2018 severe conc LVH, nl LVfunction, mild MR, mild AR mibi 07/2018 mod zone of inferolateral fixed defect c/w diaphragmatic attenuation, EF 87% Tele: No events, sinus Assessment/Plan 77 yo A female with ESRD on HD, NIDDM, HTN and HPL now admitted with gangrenous left 4th toe that will require a peripheral angiogram with possible BKA. Left toe gangrene -Abx as per primary team -Pre-op for ?BKA with abnormal ECG and inability to assess functional capacity - echo shows nl EF, mibi with no ischemia, no further testing prior to peripheral angiogram and possible BKA, may proceed as planned - angiogram scheduled for this afternoon HTN - controlled (not on meds) -Continue to follow HPL -Stable on low intensity statin ESRD -HD as per primary team
--- NOTE | 2018-07-24 12:08 | PN ---
Physical Exam: SUBJECTIVE: Patient seen and examined at bed side this morning. Ate breakfast. Feels better. Has pain in the left foot on/off. Denies chest pain, sob, cough, palpitation, abdominal pain, nausea or vomiting. BM yesterday. ] Now NPO for Angiogram of the left foot this afternoon at 4 pm. No acute overnight events. OBJECTIVE: Vital Signs Period Temp Pulse Resp BP Sys/Jha Pulse Ox Last 24 Hr 97.5 F-98.5 F 75-84 18-20 139-187/62-88 93-95 GENERAL: Elderly female, is awake, alert, and fully oriented, in no acute distress. HEAD: Normal with no signs of trauma. EYES: EOM intact , pallor +, No icterus. ENT: Ears normal, moist mucous membranes. NECK: Supple. LUNGS: B.L Breath sounds equal, clear to auscultation bilaterally, no wheezes, no crackles, no accessory muscle use. HEART: Regular rate and rhythm, S1, S2 without murmur, rub or gallop. ABDOMEN: Soft, nontender, no organomegaly, BS + UPPER EXTREMITIES: Left upper forearm-fistula functioning, 2+ pulses, warm, well -perfused, no edema. LOWER EXTREMITIES: Dressing applied over the LLE (patient refused to be examined due to pain) NEUROLOGICAL: No facial droop. Normal speech, gait not observed. PSYCH: Normal mood, normal affect. SKIN: Warm, dry, normal turgor, no rashes or lesions noted Laboratory Results - last 24 hr 07/23/18 07/23/18 07/23/18 13:02 16:00 16:00 PT with INR 13.70 H INR 1.16 H POC Glucometer 89 Blood Type AB POSITIVE Antibody Screen Negative 07/23/18 07/23/18 07/24/18 16:46 21:43 05:28 PT with INR INR POC Glucometer 122 119 76 Blood Type Antibody Screen Active Medications Generic Name Dose Route Start Last Admin Trade Name Freq PRN Reason Stop Dose Admin Acetaminophen 650 mg 07/19/18 04:17 07/22/18 17:06 Tylenol - PO 650 mg Q4H PRN Administration FEVER Atorvastatin Calcium 10 mg 07/19/18 22:00 07/23/18 21:45 Lipitor - PO 10 mg HS NOE Administration Epoetin Kin 10,000 unit 07/24/18 06:00 Procrit - IVPUSH 07/24/18 06:01 ONCE ONE Heparin Sodium (Porcine) 5,000 unit 07/19/18 06:00 07/24/18 06:42 Heparin - SQ Not Given TID NOE Piperacillin Sod/Tazobactam 50 mls @ 100 mls/hr 07/19/18 10:00 07/24/18 09:03 Sod 2.25 gm/ Dextrose IVPB 100 mls/hr Q8H-IV NOE Administration Protocol Clindamycin Phosphate 600 mg in 50 mls @ 100 mls/hr 07/23/18 21:00 07/24/18 09:03 Cleocin 600 Mg Premix Ivpb - IVPB 100 mls/hr Q6H-IV NOE Administration Protocol Sodium Chloride 250 mls @ 3,000 mls/hr 07/24/18 06:00 Normal Saline - IV 07/25/18 06:00 PRN PRN Hypotension during Dialysis Oxycodone HCl 5 mg 07/23/18 15:53 07/24/18 09:04 Roxicodone - PO 5 mg Q4H PRN Administration PAIN LEVEL 6-10 Polyethylene Glycol 17 gm 07/20/18 10:45 07/24/18 09:03 Miralax (For Daily Use) - PO 17 gm BID NOE Administration Sevelamer Carbonate 800 mg 07/19/18 08:00 07/24/18 09:02 Renvela - PO 800 mg TIDCM NOE Administration ASSESSMENT/PLAN: Patient is a 77 year old female PMHx of ESRD (T,Th,S), DM, HTN, HLD, admitted with Left 4th toe wound and pain for a month. 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 EF 87 % NPO after breakfast for Angiogram at 4pm today. Heparin on hold. HD after the procedure. Planning for amputation depending on the angioplasty result. # Hypertension-controlled Diet controlled # ESRD (TTS) Creatinine 4.2---> 3.9--- pending Continue Sevelamer Avoid nephrotoxic drugs # Hyperlipidemia Continue Statin 10mg # FEN Not on IV fluids. Electrolytes WNl NPO # Prophylaxis For DVT: ON Heparin sq 5000 TID (will hold heparin today) For GI: Not indicated # Code Status: Full Code Illness, Investigation and PLan of care explained to the patient. She verbalized understanding. Case discussed with Dr. Shaw. Problem List - Problems (1) Chronic kidney disease, stage 5, kidney failure Code(s): N18.5 - CHRONIC KIDNEY DISEASE, STAGE 5 (2) DVT prophylaxis Code(s): [id number] - (3) Foot ulcer Code(s): L97.509 - NON-PRESSURE CHRONIC ULCER OTH PRT UNSP FOOT W UNSP SEVERITY Qualifiers: Laterality: left Non-pressure ulcer stage: unspecified non-pressure ulcer stage Qualified Code(s): L97.529 - Non-pressure chronic ulcer of other part of left foot with unspecified severity (4) Gas gangrene of foot Code(s): A48.0 - GAS GANGRENE (5) Hypokalemia Code(s): E87.6 - HYPOKALEMIA (6) ESRD (end stage renal disease) Code(s): N18.6 - END STAGE RENAL DISEASE Visit type - Emergency Visit Emergency Visit: Yes ED Registration Date: 07/18/18 Care time: The patient presented to the Emergency Department on the above date and was hospitalized for further evaluation of their emergent condition. - New Patient This patient is new to me today: No - Critical Care Critical Care patient: No - Discharge Referral Referred to [facility] Med P.C.: No
--- NOTE | 2018-07-24 14:40 | PN ---
Teaching Attending Note Name of Resident: Pati Salazar ATTENDING PHYSICIAN STATEMENT I saw and evaluated the patient. I reviewed the resident's note and discussed the case with the resident. I agree with the resident's findings and plan as documented. SUBJECTIVE: Ms Crain is without complaint today and says she is feeling fine. No cp, sob, n/v. 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 - OTHER DISORDERS OF CALCIUM METABOLISM (3) Chronic kidney disease, stage 5, kidney failure Code(s): N18.5 - CHRONIC KIDNEY DISEASE, STAGE 5 (4) GERD (gastroesophageal reflux disease) Code(s): K21.9 - GASTRO-ESOPHAGEAL REFLUX DISEASE WITHOUT ESOPHAGITIS (5) Hyperlipidemia Code(s): E78.5 - HYPERLIPIDEMIA, UNSPECIFIED Qualifiers: Hyperlipidemia type: pure hypercholesterolemia Qualified Code(s): E78.00 - Pure hypercholesterolemia, unspecified; E78.0 - Pure hypercholesterolemia (6) Hypertension Code(s): I10 - ESSENTIAL (PRIMARY) HYPERTENSION Qualifiers: Hypertension type: essential hypertension Qualified Code(s): I10 - Essential (primary) hypertension (7) Hypokalemia Code(s): E87.6 - HYPOKALEMIA
[2018-07-24] MEDS ORDERED: HEPARIN NA (PORCINE) 5,000 UNITS/ML 1ML VIAL ONE ×3 (15:10→16:51)
[2018-07-24] MEDS ORDERED: LIDOCAINE HCL 1%, 10 MG/ML (20ML VIAL) ONE (15:18)
[2018-07-24] MEDS ORDERED: MIDAZOLAM HCL 2 MG/2 ML SINGLE DOSE VIAL ONE (15:32)
[2018-07-24] MEDS ORDERED: LIDOCAINE HCL 1%, 10 MG/ML (20ML VIAL) INF ONE (15:57)
--- NOTE | 2018-07-24 17:54 | OP ---
Operative Note - Note: Operative Date: 07/24/18 Pre-Operative Diagnosis: Left foot gangrene Operation: Aortogram, LLE angiogram, Anterior tibial artery angioplasty Findings: Anterior tibial artery occlusion. Good dopplerable pulse in Pacu Post-Operative Diagnosis: Same as Pre-op Surgeon: Boris Rodriguez Anesthesia: Fractional Estimated Blood Loss (mls): 75 Operative Report Dictated: Yes
--- NOTE | 2018-07-24 18:38 | PN ---
Progress Note, Physician History of Present Illness: stable for angio and ballon angio - Current Medication List Current Medications: Active Medications Acetaminophen (Tylenol -) 650 mg PO Q4H PRN PRN Reason: FEVER Last Admin: 07/22/18 17:06 Dose: 650 mg Atorvastatin Calcium (Lipitor -) 10 mg PO HS [facility] Last Admin: 07/23/18 21:45 Dose: 10 mg Clopidogrel Bisulfate (Plavix -) 75 mg PO DAILY [facility] Epoetin Kin (Procrit -) 10,000 unit IVPUSH ONCE ONE Stop: 07/24/18 06:01 Fentanyl (Sublimaze Injection -) 25 mcg IVPUSH [id number] PRN PRN Reason: PAIN-PACU ORDER X 4 DOSES ONLY Heparin Sodium (Porcine) (Heparin -) 5,000 unit SQ TID [facility] Last Admin: 07/24/18 06:42 Dose: Not Given Piperacillin Sod/Tazobactam (Sod 2.25 gm/ Dextrose) 50 mls @ 100 mls/hr IVPB Q8H-IV NOE; Protocol Last Admin: 07/24/18 09:03 Dose: 100 mls/hr Clindamycin Phosphate (Cleocin 600 Mg Premix Ivpb -) 600 mg in 50 mls @ 100 mls /hr IVPB Q6H-IV NOE; Protocol Last Admin: 07/24/18 09:03 Dose: 100 mls/hr Sodium Chloride (Normal Saline -) 250 mls @ 3,000 mls/hr IV PRN PRN PRN Reason: Hypotension during Dialysis Stop: 07/25/18 06:00 Oxycodone HCl (Roxicodone -) 5 mg PO Q4H PRN PRN Reason: PAIN LEVEL 6-10 Last Admin: 07/24/18 09:04 Dose: 5 mg Polyethylene Glycol (Miralax (For Daily Use) -) 17 gm PO BID [facility] Last Admin: 07/24/18 09:03 Dose: 17 gm Sevelamer Carbonate (Renvela -) 800 mg PO TIDCM [facility] Last Admin: 07/24/18 12:00 Dose: Not Given - Objective Vital Signs: Vital Signs Temperature 97.6 F 07/24/18 14:01 Pulse Rate 82 07/24/18 14:06 Respiratory Rate 16 07/24/18 14:01 Blood Pressure 153/80 07/24/18 14:06 O2 Sat by Pulse Oximetry (%) 95 07/24/18 09:00 Constitutional: Yes: No Distress, Calm Cardiovascular: Yes: Regular Rate and Rhythm Respiratory: Yes: Regular, CTA Bilaterally Gastrointestinal: Yes: Normal Bowel Sounds, Soft Musculoskeletal: Yes: WNL Extremities: Yes: Other Neurological: Yes: Alert, Oriented Psychiatric: Yes: Alert, Oriented Labs: CBC, BMP 07/23/18 05:30 07/23/18 05:30 INR, PTT INR 1.16 (0.83-1.09) H 07/23/18 16:00 Assessment/Plan 77 yo Female with PMH of ESRD (HD on T,Th,S), NIDDM, HTN, HLD, admitted with Left 4th toe wound and pain for 1 month. Necrotic left 4th Toe ESRD on HD NIDDM HTN HLD plan continue abx ballon angio as per vascular rest as per theam final plan awaited
--- NOTE | 2018-07-24 18:41 | PN ---
Progress Note (short form) - Note Progress Note: Vascular Surgery S/P tibial artery angioplasty Pt has strong DP pulse in forefoot. Would watch forefoot now. See if it starts to heal. Pt can also get HBO. If it gets worse, pt can get toe amputation. Boris kang DO
[2018-07-24] MEDS ORDERED: INSULIN SLIDING SCALE (NOVOLOG) 1 VIAL SQ ONE (18:48)
[2018-07-24] MEDS ORDERED: ACETAMINOPHEN 325 MG TABLET (FP) PO PRN (18:57)
[2018-07-24] MEDS ORDERED: oxyCODONE HCL 5 MG TABLET PO PRN (18:57)
[2018-07-24] MEDS ORDERED: ATORVASTATIN CA 10 MG TABLET (FP) PO SCH (22:00)
[2018-07-24 22:12] LABS: ANION GAP 10 MMOL/L (8-16); BLOOD UREA NITROGEN 37 mg/dL (7-18); CALCIUM 8.2 mg/dL (8.5-10.1); CHLORIDE 95 mmol/L (98-107); CO2 28 mmol/L (21-32); CREATININE 5.4 mg/dL (0.55-1.3); GLUCOSE,RANDOM 99 mg/dL (74-106); POTASSIUM 4.9 mmol/L (3.5-5.1); SODIUM 134 mmol/L (136-145)
[2018-07-24 22:22] LABS: HEMATOCRIT 25.3 % (32.4-45.2); HEMOGLOBIN 8.8 GM/dL (10.7-15.3); MCH 32.2 pg (25.7-33.7); MCHC 34.8 g/dl (32.0-36.0); MEAN CELL VOLUME 92.7 fl (80-96); MEAN PLT VOLUME 7.5 fl (7.5-11.1); PLATELET COUNT 242 K/MM3 (134-434); RBC 2.73 M/mm3 (3.60-5.2); RDW 17.3 % (11.6-15.6); WHITE BLOOD COUNT 8.4 K/mm3 (4.0-10.0)
[2018-07-24 22:24] LABS: INR 1.19 (0.83-1.09); PROTHROMBIN TIME (PATIENT) 14.1 SEC (9.7-13.0)
[2018-07-25] MEDS ORDERED: PIPERACILLIN/TAZOBACTAM 2.25 GM VIAL IVPB ONE ×3 (01:12→16:48)
[2018-07-25] MEDS ORDERED: DEXTROSE 5%-WATER - 50 ML IVPB ONE ×3 (01:12→16:48)
[2018-07-25] MEDS: PIPERACILLIN/TAZOB 2.25 GM 2.25 GM in DEXTROSE 5%-WATER - 50 ML IVPB SCH ×4 (01:29→17:07)
[2018-07-25] MEDS: CLINDAMYCIN 600MG PREMIX IVPB 600 MG/50 ML BAG IVPB SCH ×5 (02:03→22:10)
[2018-07-25 02:28] LABS: CREATININE 1.7 mg/dL (0.55-1.3)
[2018-07-25] MEDS: HEPARIN NA (PORCINE) 5,000 UNITS/ML 1ML VIAL SQ SCH ×3 (05:43→22:10)
[2018-07-25] MEDS: SEVELAMER CARBONATE 800 MG TAB (FP) PO SCH ×4 (07:17→17:07)
[2018-07-25 08:04] LABS: ANION GAP 11 MMOL/L (8-16); BLOOD UREA NITROGEN 13 mg/dL (7-18); CALCIUM 8.5 mg/dL (8.5-10.1); CHLORIDE 96 mmol/L (98-107); CO2 30 mmol/L (21-32); CREATININE 2.9 mg/dL (0.55-1.3); GLUCOSE,RANDOM 77 mg/dL (74-106); POTASSIUM 3.9 mmol/L (3.5-5.1); SODIUM 136 mmol/L (136-145)
[2018-07-25] MEDS: CLOPIDOGREL BISULFATE 75 MG TABLET (FP) PO SCH ×2 (08:24→09:39)
--- NOTE | 2018-07-25 08:34 | PN ---
Progress Note (short form) - Note Progress Note: POD 1, s/p Aortogram, LLE angiogram, Anterior tibial artery angioplasty for L foot gangrene Pt seen and examined states she is feeling well after surgery yesterday. Reports less pain in L foot. Tolerating PO. Has not been oob. Denies cp/sob, n/v /d. Vital Signs Temp 99.1 F 07/25/18 07:00 Pulse 90 07/25/18 07:00 Resp 18 07/25/18 07:00 BP 144/67 07/25/18 07:00 Pulse Ox 95 07/24/18 20:32 Intake & Output 07/24/18 07/24/18 07/25/18 11:59 23:59 11:59 Intake Total 620 170 350 Balance 620 170 350 Intake: IV 0 IVPB 100 50 100 Oral 520 120 250 Other: Voiding Method Diaper Diaper Incontinent # Unmeasured Voids Void 1 1 Bowel Movement Yes # Bowel Movements 1 CBC, BMP 07/25/18 05:50 Gen: awake, alert, nad. Laying in bed in nad Resp: unlabored Groin: R groin with dressing c/d/i. No palpable hematoma, no thrill. L foot with dry gangrene of 2nd/3rd toes extending onto forefoot. No erythema, no drainage. Minimal edema. A/P: 77 y/o F w/ PMHx of ESRD (T,Th,S), DM, HTN, HLD, admitted with Left 4th toe wound and pain for a month, now s/p POD 1, s/p Aortogram, LLE angiogram, Anterior tibial artery angioplasty for L foot gangrene. -[place] areas of dry gangrene with Betadine solution -Keep dry 4x4 gauze between toes at all times -Pt should f/u with Dr Rodriguez within 1 week after d/c
[2018-07-25 09:02] LABS: HEMATOCRIT 28.2 % (32.4-45.2); HEMOGLOBIN 8.9 GM/dL (10.7-15.3); MCH 29.9 pg (25.7-33.7); MCHC 31.5 g/dl (32.0-36.0); MEAN PLT VOLUME 7.7 fl (7.5-11.1); PLATELET COUNT 236 K/MM3 (134-434); RBC 2.97 M/mm3 (3.60-5.2); WHITE BLOOD COUNT 10.2 K/mm3 (4.0-10.0)
[2018-07-25] MEDS: POLYETHYLENE GLYCOL 3350 119 GM BTL PO SCH ×2 (09:39→22:09)
--- NOTE | 2018-07-25 09:58 | PN ---
Progress Note (short form) - Note Progress Note: History of Present Illness: s/p tibial artery angioplasty yesterday. no chest pain, palps, dizziness, lightheadedness Current Medications Acetaminophen (Tylenol -) 650 mg PO Q4H PRN PRN Reason: FEVER Atorvastatin Calcium (Lipitor -) 10 mg PO HS [facility] Last Admin: 07/24/18 22:02 Dose: 10 mg Clopidogrel Bisulfate (Plavix -) 75 mg PO DAILY [facility] Last Admin: 07/25/18 09:39 Dose: 75 mg Heparin Sodium (Porcine) (Heparin -) 5,000 unit SQ TID [facility] Last Admin: 07/25/18 05:43 Dose: 5,000 unit Clindamycin Phosphate (Cleocin 600 Mg Premix Ivpb -) 600 mg in 50 mls @ 100 mls /hr IVPB Q6H-IV [facility]; Protocol Last Admin: 07/25/18 09:38 Dose: 100 mls/hr Piperacillin Sod/Tazobactam (Sod 2.25 gm/ Dextrose) 50 mls @ 100 mls/hr IVPB Q8H-IV [facility]; Protocol Last Admin: 07/25/18 09:37 Dose: 100 mls/hr Oxycodone HCl (Roxicodone -) 5 mg PO Q4H PRN PRN Reason: PAIN LEVEL 6-10 Last Admin: 07/25/18 09:39 Dose: 5 mg Polyethylene Glycol (Miralax (For Daily Use) -) 17 gm PO BID [facility] Last Admin: 07/25/18 09:39 Dose: Not Given Sevelamer Carbonate (Renvela -) 800 mg PO TIDCM [facility] Last Admin: 07/25/18 09:39 Dose: 800 mg Vital Signs Period Temp Pulse Resp BP Sys/Jha Pulse Ox Last 24 Hr 97.6 F-99.1 F 55-94 - 135-195/57-93 95-100 Constitutional: Yes: No Distress, Calm Eyes: Yes: WNL HENT: Yes: WNL Neck: Yes: WNL Cardiovascular: Yes: Regular Rate and Rhythm Respiratory: Yes: CTA Bilaterally Gastrointestinal: Yes: WNL Extremities: Yes: Other (Left 4th oes gangrene) echo 07/2018 severe conc LVH, nl LVfunction, mild MR, mild AR mibi 07/2018 mod zone of inferolateral fixed defect c/w diaphragmatic attenuation, EF 87% Tele: No events, sinus Assessment/Plan 77 yo A female with ESRD on HD, NIDDM, HTN and HPL now admitted with gangrenous left 4th toe that will require a peripheral angiogram with possible BKA. Left toe gangrene -Abx as per primary team - s/p tibial artery angioplasty, plan per vascular HTN - controlled (not on meds) -Continue to follow HPL -Stable on low intensity statin ESRD -HD as per primary team
--- NOTE | 2018-07-25 12:37 | PN ---
Physical Exam: SUBJECTIVE: Patient seen and examined at bed side this morning. States she feels better. Her pain in the left leg is better. Denies chest pain, sob, cough , palpitation, abdominal pain, nausea or vomiting. No acute overnight events. OBJECTIVE: Vital Signs Period Temp Pulse Resp BP Sys/Jha Pulse Ox Last 24 Hr 97.6 F-99.1 F 55-94 12-18 135-195/57-93 95-100 GENERAL: Elderly female, is awake, alert, and fully oriented, in no acute distress. HEAD: Normal with no signs of trauma. EYES: EOM intact , pallor +, No icterus. ENT: Ears normal, moist mucous membranes. NECK: Supple. LUNGS: B.L Breath sounds equal, clear to auscultation bilaterally, no wheezes, no crackles, no accessory muscle use. HEART: Regular rate and rhythm, S1, S2 without murmur, rub or gallop. ABDOMEN: Soft, nontender, no organomegaly, BS + UPPER EXTREMITIES: Left upper forearm-fistula functioning, 2+ pulses, warm, well -perfused, no edema. LOWER EXTREMITIES: LEFT: blackish discoloration from the 3 Left digits till the bases. NEUROLOGICAL: No facial droop. Normal speech, gait not observed. PSYCH: Normal mood, normal affect. SKIN: Warm, dry, normal turgor, no rashes or lesions noted Laboratory Results - last 24 hr 07/24/18 07/24/18 07/24/18 19:05 21:30 21:30 WBC 8.4 RBC 2.73 L Hgb 8.8 L Hct 25.3 L MCV 92.7 MCH 32.2 MCHC 34.8 RDW 17.3 H Plt Count 242 MPV 7.5 PT with INR 14.10 H INR 1.19 H Sodium Potassium Chloride Carbon Dioxide Anion Gap BUN Creatinine Creat Clearance w eGFR POC Glucometer 76 Random Glucose Calcium 07/24/18 07/24/18 07/25/18 21:30 22:01 01:00 WBC RBC Hgb Hct MCV MCH MCHC RDW Plt Count MPV PT with INR INR Sodium 134 L Potassium 4.9 Chloride 95 L Carbon Dioxide 28 Anion Gap 10 BUN 37 H 9 Creatinine 5.4 H 1.7 H Creat Clearance w eGFR 7.66 POC Glucometer 145 Random Glucose 99 Calcium 8.2 L 07/25/18 07/25/18 07/25/18 05:49 05:50 05:50 WBC 10.2 H RBC 2.97 L Hgb 8.9 L Hct 28.2 L MCV 95.0 MCH 29.9 MCHC 31.5 L RDW 17.0 H Plt Count 236 MPV 7.7 PT with INR INR Sodium 136 Potassium 3.9 Chloride 96 L Carbon Dioxide 30 Anion Gap 11 BUN 13 Creatinine 2.9 H Creat Clearance w eGFR 15.69 POC Glucometer 80 Random Glucose 77 Calcium 8.5 07/25/18 11:47 WBC RBC Hgb Hct MCV MCH MCHC RDW Plt Count MPV PT with INR INR Sodium Potassium Chloride Carbon Dioxide Anion Gap BUN Creatinine Creat Clearance w eGFR POC Glucometer 141 Random Glucose Calcium Active Medications Generic Name Dose Route Start Last Admin Trade Name Freq PRN Reason Stop Dose Admin Acetaminophen 650 mg 07/24/18 18:57 Tylenol - PO Q4H PRN FEVER Atorvastatin Calcium 10 mg 07/24/18 22:00 07/24/18 22:02 Lipitor - PO 10 mg HS NOE Administration Clopidogrel Bisulfate 75 mg 07/24/18 18:00 07/25/18 09:39 Plavix - PO 75 mg DAILY NOE Administration Heparin Sodium (Porcine) 5,000 unit 07/24/18 22:00 07/25/18 05:43 Heparin - SQ 5,000 unit TID NOE Administration Clindamycin Phosphate 600 mg in 50 mls @ 100 mls/hr 07/24/18 21:00 07/25/18 09:38 Cleocin 600 Mg Premix Ivpb - IVPB 100 mls/hr Q6H-IV NOE Administration Protocol Piperacillin Sod/Tazobactam 50 mls @ 100 mls/hr 07/25/18 02:00 07/25/18 09:37 Sod 2.25 gm/ Dextrose IVPB 100 mls/hr Q8H-IV NOE Administration Protocol Oxycodone HCl 5 mg 07/24/18 18:57 07/25/18 09:39 Roxicodone - PO 5 mg Q4H PRN Administration PAIN LEVEL 6-10 Polyethylene Glycol 17 gm 07/24/18 22:00 07/25/18 09:39 Miralax (For Daily Use) - PO Not Given BID NOE Sevelamer Carbonate 800 mg 07/25/18 08:00 07/25/18 09:39 Renvela - PO 800 mg TIDCM NOE Administration Lower ext CT 07/18/18 shows Air/Gas accumulation is seen within the soft tissues surrounding the fourth toe consistent with gas forming infection Stress test done 07/23: Overall negative pharmacologic stress test. EF 87 % ASSESSMENT/PLAN: Patient is a 77 year old female PMHx of ESRD (T,Th,S), DM, HTN, HLD, admitted with Left 4th toe wound and pain for a month. 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 Heparin sq started post procedure. Amputation if it gets worse. # Leukocytosis 10.2 Could be reactive. On antibiotics. # Hypertension-controlled Diet controlled # ESRD (TTS) Creatinine 2.9 today. HD was done yesterday 07/24/18 post Angio Continue Sevelamer 800 mg PO TID Avoid nephrotoxic drugs Fluid restriction 1.2L/day # Hyperlipidemia Continue Statin 10mg # FEN Not on IV fluids, can tolerate PO. Electrolytes WNl Sodium/Diabetic diet # Prophylaxis For DVT: On Heparin sq 5000 TID For GI: Not indicated # Code Status: Full Code # Dispo: Admitted in Tele- no acute events since admission. Will downgrade to Med-Surg. Illness, Investigation and Plan of care explained to the patient. She verbalized understanding. Case discussed with Dr. Moon. Problem List - Problems (1) Chronic kidney disease, stage 5, kidney failure Code(s): N18.5 - CHRONIC KIDNEY DISEASE, STAGE 5 (2) DVT prophylaxis Code(s): [id number] - (3) Foot ulcer Code(s): L97.509 - NON-PRESSURE CHRONIC ULCER OTH PRT UNSP FOOT W UNSP SEVERITY Qualifiers: Laterality: left Non-pressure ulcer stage: unspecified non-pressure ulcer stage Qualified Code(s): L97.529 - Non-pressure chronic ulcer of other part of left foot with unspecified severity (4) Gas gangrene of foot Code(s): A48.0 - GAS GANGRENE (5) Hypokalemia Code(s): E87.6 - HYPOKALEMIA (6) ESRD (end stage renal disease) Code(s): N18.6 - END STAGE RENAL DISEASE Visit type - Emergency Visit Emergency Visit: Yes ED Registration Date: 07/18/18 Care time: The patient presented to the Emergency Department on the above date and was hospitalized for further evaluation of their emergent condition. - New Patient This patient is new to me today: No - Critical Care Critical Care patient: No - Discharge Referral Referred to [facility] Med [facility] No
[2018-07-25] MEDS ORDERED: ACETAMINOPHEN 325 MG TABLET (FP) PO PRN (12:47)
[2018-07-25] MEDS ORDERED: SODIUM CHLORIDE 250 ML IV PRN (13:29)
--- NOTE | 2018-07-25 13:29 | PN ---
Progress Note (short form) - Note Progress Note: Renal follow up for ESRD on HD Pt seen and examined at the bedside no acute complaints, denies any sob s/p angiogram and angioplasty yesterday s/p dialysis yesterday Vital Signs Temperature 97.5 F L 07/24/18 08:40 Pulse Rate 84 07/24/18 08:40 Respiratory Rate 20 07/24/18 08:40 Blood Pressure 149/62 07/24/18 08:40 O2 Sat by Pulse Oximetry (%) 93 L 07/23/18 21:00 NAD on NC O awake and alert no Le edema 07/25/18 05:50 07/25/18 05:50 Current Medications Acetaminophen (Tylenol -) 650 mg PO Q4H PRN PRN Reason: FEVER Atorvastatin Calcium (Lipitor -) 10 mg PO HS NOE Clopidogrel Bisulfate (Plavix -) 75 mg PO DAILY NOE Heparin Sodium (Porcine) (Heparin -) 5,000 unit SQ TID NOE Clindamycin Phosphate (Cleocin 600 Mg Premix Ivpb -) 600 mg in 50 mls @ 100 mls /hr IVPB Q6H-IV NOE; Protocol Piperacillin Sod/Tazobactam (Sod 2.25 gm/ Dextrose) 50 mls @ 100 mls/hr IVPB Q8H-IV NOE; Protocol Oxycodone HCl (Roxicodone -) 5 mg PO Q4H PRN PRN Reason: PAIN LEVEL 6-10 Polyethylene Glycol (Miralax (For Daily Use) -) 17 gm PO BID NOE Sevelamer Carbonate (Renvela -) 800 mg PO TIDCM [facility] 77 year old AA woman with hx of ESRD on HD, DM, hypertension who presented with worsening infection of her foot #Gangrene of LE #suspected arterial insufficiency of LE #ESRD on HD #DM #Anemia #Renal Osteodystrophy no acute indication for dialysis today next session to be done tomorrow continue Abx as per ID wound care Renal diet, 1.2L Fluis restriction Asa Smith DO
--- NOTE | 2018-07-25 14:10 | PN ---
Teaching Attending Note Name of Resident: Pati Salazar ATTENDING PHYSICIAN STATEMENT I saw and evaluated the patient. I reviewed the resident's note and discussed the case with the resident. I agree with the resident's findings and plan as documented. SUBJECTIVE: Patient has no complaints. She denies pain in her left foot. OBJECTIVE: Vital Signs Period Temp Pulse Resp BP Sys/Jha Pulse Ox Last 24 Hr 97.7 F-99.1 F 55-94 12-18 135-195/57-93 95-100 HEART: S1S2, RRR LUNGS: Clear ABDOMEN: Soft, non-tender, non-distended, normal BS EXTREMITIES: No edema, left foot warm, gangrene of left 3rd and 4th toes extending to the dorsal surface of the foot Laboratory Results - last 24 hr 07/24/18 07/24/18 07/24/18 19:05 21:30 21:30 WBC 8.4 RBC 2.73 L Hgb 8.8 L Hct 25.3 L MCV 92.7 MCH 32.2 MCHC 34.8 RDW 17.3 H Plt Count 242 MPV 7.5 PT with INR 14.10 H INR 1.19 H Sodium Potassium Chloride Carbon Dioxide Anion Gap BUN Creatinine Creat Clearance w eGFR POC Glucometer 76 Random Glucose Calcium 07/24/18 07/24/18 07/25/18 21:30 22:01 01:00 WBC RBC Hgb Hct MCV MCH MCHC RDW Plt Count MPV PT with INR INR Sodium 134 L Potassium 4.9 Chloride 95 L Carbon Dioxide 28 Anion Gap 10 BUN 37 H 9 Creatinine 5.4 H 1.7 H Creat Clearance w eGFR 7.66 POC Glucometer 145 Random Glucose 99 Calcium 8.2 L 07/25/18 07/25/18 07/25/18 05:49 05:50 05:50 WBC 10.2 H RBC 2.97 L Hgb 8.9 L Hct 28.2 L MCV 95.0 MCH 29.9 MCHC 31.5 L RDW 17.0 H Plt Count 236 MPV 7.7 PT with INR INR Sodium 136 Potassium 3.9 Chloride 96 L Carbon Dioxide 30 Anion Gap 11 BUN 13 Creatinine 2.9 H Creat Clearance w eGFR 15.69 POC Glucometer 80 Random Glucose 77 Calcium 8.5 07/25/18 11:47 WBC RBC Hgb Hct MCV MCH MCHC RDW Plt Count MPV PT with INR INR Sodium Potassium Chloride Carbon Dioxide Anion Gap BUN Creatinine Creat Clearance w eGFR POC Glucometer 141 Random Glucose Calcium Current Medications Generic Name Dose Route Start Last Admin Trade Name Zeny PRN Reason Stop Dose Admin Acetaminophen 650 mg 07/25/18 12:47 Tylenol - PO Q4H PRN FEVER Atorvastatin Calcium 10 mg 07/25/18 22:00 Lipitor - PO HS NOE Clopidogrel Bisulfate 75 mg 07/26/18 10:00 Plavix - PO DAILY NOE Epoetin Kin 10,000 unit 07/26/18 08:00 Procrit - IVPUSH 07/26/18 08:01 ONCE ONE Heparin Sodium (Porcine) 5,000 unit 07/25/18 14:00 Heparin - SQ TID NOE Clindamycin Phosphate 600 mg in 50 mls @ 100 mls/hr 07/25/18 15:00 Cleocin 600 Mg Premix Ivpb - IVPB Q6H-IV NOE Protocol Piperacillin Sod/Tazobactam 50 mls @ 100 mls/hr 07/25/18 18:00 Sod 2.25 gm/ Dextrose IVPB Q8H-IV NOE Protocol Sodium Chloride 250 mls @ 3,000 mls/hr 07/25/18 13:29 Normal Saline - IV 07/26/18 13:29 PRN PRN Hypotension during Dialysis Oxycodone HCl 5 mg 07/25/18 12:47 Roxicodone - PO Q4H PRN PAIN LEVEL 6-10 Polyethylene Glycol 17 gm 07/25/18 22:00 Miralax (For Daily Use) - PO BID NOE Sevelamer Carbonate 800 mg 07/25/18 17:30 Renvela - PO TIDCM [facility] ASSESSMENT AND PLAN: This is a 77 year old woman with a history of ESRD, type 2 DM, HTN, hyperlipidemia who presented to the ED with pain in her left foot. 1. PAD with gas gangrene of left 4th toe - s/p tibial artery angioplasty 07/24 - Continue Zosyn, Clindamycin, Plavix - Will monitor for healing - Consider hyperbaric oxygen therapy 2. Hypertension - On no meds - Will monitor BP 3. ESRD with renal osteodystrophy - Continue HD, Renvela 4. Hyperlipidemia - Continue Lipitor 5. Type 2 DM - Diet controlled 6. Anemia secondary to chronic illness/CKD - Continue Procrit
--- NOTE | 2018-07-25 15:04 | PN ---
Progress Note, Physician History of Present Illness: stable no complaints - Current Medication List Current Medications: Active Medications Acetaminophen (Tylenol -) 650 mg PO Q4H PRN PRN Reason: FEVER Atorvastatin Calcium (Lipitor -) 10 mg PO HS NOE Clopidogrel Bisulfate (Plavix -) 75 mg PO DAILY NOE Epoetin Kin (Procrit -) 10,000 unit IVPUSH ONCE ONE Stop: 07/26/18 08:01 Heparin Sodium (Porcine) (Heparin -) 5,000 unit SQ TID NOE Clindamycin Phosphate (Cleocin 600 Mg Premix Ivpb -) 600 mg in 50 mls @ 100 mls /hr IVPB Q6H-IV NOE; Protocol Piperacillin Sod/Tazobactam (Sod 2.25 gm/ Dextrose) 50 mls @ 100 mls/hr IVPB Q8H-IV NOE; Protocol Sodium Chloride (Normal Saline -) 250 mls @ 3,000 mls/hr IV PRN PRN PRN Reason: Hypotension during Dialysis Stop: 07/26/18 13:29 Oxycodone HCl (Roxicodone -) 5 mg PO Q4H PRN PRN Reason: PAIN LEVEL 6-10 Polyethylene Glycol (Miralax (For Daily Use) -) 17 gm PO BID NOE Sevelamer Carbonate (Renvela -) 800 mg PO TIDCM [facility] - Objective Vital Signs: Vital Signs Temperature 99.1 F 07/25/18 09:45 Pulse Rate 91 H 07/25/18 09:45 Respiratory Rate 18 07/25/18 09:45 Blood Pressure 135/61 07/25/18 09:45 O2 Sat by Pulse Oximetry (%) 98 07/25/18 09:00 Constitutional: Yes: No Distress, Calm Cardiovascular: Yes: S1, S2 Respiratory: Yes: Regular, CTA Bilaterally Gastrointestinal: Yes: Normal Bowel Sounds, Soft Musculoskeletal: Yes: WNL Extremities: Yes: Other Integumentary: Yes: Erythema, Other Wound/Incision: Yes: Other Neurological: Yes: Alert, Oriented Psychiatric: Yes: Alert, Oriented Labs: CBC, BMP 07/25/18 05:50 07/25/18 05:50 INR, PTT INR 1.19 (0.83-1.09) H 07/24/18 21:30 Assessment/Plan Problem List - Problems (1) gas gangrene of foot Code(s): A48.0 - GAS GANGRENE (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 - OTHER DISORDERS OF CALCIUM METABOLISM (3) Chronic kidney disease, stage 5, kidney failure Code(s): N18.5 - CHRONIC KIDNEY DISEASE, STAGE 5 (4) GERD (gastroesophageal reflux disease) Code(s): K21.9 - GASTRO-ESOPHAGEAL REFLUX DISEASE WITHOUT ESOPHAGITIS (5) Hyperlipidemia Code(s): E78.5 - HYPERLIPIDEMIA, UNSPECIFIED Qualifiers: Hyperlipidemia type: pure hypercholesterolemia Qualified Code(s): E78.00 - Pure hypercholesterolemia, unspecified; E78.0 - Pure hypercholesterolemia (6) Hypertension Code(s): I10 - ESSENTIAL (PRIMARY) HYPERTENSION Qualifiers: Hypertension type: essential hypertension Qualified Code(s): I10 - Essential (primary) hypertension (7) Osteoarthritis Code(s): M19.90 - UNSPECIFIED OSTEOARTHRITIS, UNSPECIFIED SITE (8) Rheumatoid arthritis involving both hips Code(s): M06.9 - RHEUMATOID ARTHRITIS, UNSPECIFIED (9) Hypokalemia Code(s): E87.6 - HYPOKALEMIA plan continue abx await for final paln wound care dialysis rest as per the team needs amputation
[2018-07-25] MEDS: ATORVASTATIN CA 10 MG TABLET (FP) PO SCH (22:10)
[2018-07-26] MEDS ORDERED: PIPERACILLIN/TAZOBACTAM 2.25 GM VIAL IVPB ONE ×3 (01:20→17:43)
[2018-07-26] MEDS ORDERED: DEXTROSE 5%-WATER - 50 ML IVPB ONE ×3 (01:20→17:43)
[2018-07-26] MEDS: PIPERACILLIN/TAZOB 2.25 GM 2.25 GM in DEXTROSE 5%-WATER - 50 ML IVPB SCH ×3 (01:43→18:13)
[2018-07-26] MEDS: CLINDAMYCIN 600MG PREMIX IVPB 600 MG/50 ML BAG IVPB SCH ×4 (02:12→20:32)
[2018-07-26] MEDS: oxyCODONE HCL 5 MG TABLET PO PRN ×2 (05:14→10:30)
[2018-07-26] MEDS: HEPARIN NA (PORCINE) 5,000 UNITS/ML 1ML VIAL SQ SCH ×3 (05:14→22:35)
[2018-07-26] MEDS: SEVELAMER CARBONATE 800 MG TAB (FP) PO SCH ×3 (08:30→18:13)
[2018-07-26] MEDS: CLOPIDOGREL BISULFATE 75 MG TABLET (FP) PO SCH (10:11)
--- NOTE | 2018-07-26 10:46 | PN ---
Progress Note (short form) - Note Progress Note: History of Present Illness: no chest pain, palps, dizziness, lightheadedness, sob Current Medications Generic Name Dose Route Start Last Admin Trade Name Megaq PRN Reason Stop Dose Admin Acetaminophen 650 mg 07/25/18 12:47 Tylenol - PO Q4H PRN FEVER Atorvastatin Calcium 10 mg 07/25/18 22:00 07/25/18 22:10 Lipitor - PO 10 mg HS NOE Administration Clopidogrel Bisulfate 75 mg 07/26/18 10:00 Plavix - PO DAILY NOE Epoetin Kin 10,000 unit 07/26/18 08:00 Procrit - IVPUSH 07/26/18 08:01 ONCE ONE Heparin Sodium (Porcine) 5,000 unit 07/25/18 14:00 07/26/18 05:14 Heparin - SQ 5,000 unit TID NOE Administration Clindamycin Phosphate 600 mg in 50 mls @ 100 mls/hr 07/25/18 15:00 07/26/18 02:12 Cleocin 600 Mg Premix Ivpb - IVPB 100 mls/hr Q6H-IV NOE Administration Protocol Piperacillin Sod/Tazobactam 50 mls @ 100 mls/hr 07/25/18 18:00 07/26/18 01:43 Sod 2.25 gm/ Dextrose IVPB 100 mls/hr Q8H-IV NOE Administration Protocol Sodium Chloride 250 mls @ 3,000 mls/hr 07/25/18 13:29 Normal Saline - IV 07/26/18 13:29 PRN PRN Hypotension during Dialysis Oxycodone HCl 5 mg 07/25/18 12:47 07/26/18 05:14 Roxicodone - PO 5 mg Q4H PRN Administration PAIN LEVEL 6-10 Polyethylene Glycol 17 gm 07/25/18 22:00 07/25/18 22:09 Miralax (For Daily Use) - PO Not Given BID NOE Sevelamer Carbonate 800 mg 07/25/18 17:30 07/25/18 17:07 Renvela - PO 800 mg TIDCM NOE Administration Vital Signs Period Temp Pulse Resp BP Sys/Jha Pulse Ox Last 24 Hr 97.9 F-99.6 F 77-96 18-20 113-151/58-86 nad no jvd rrr s1s2 no mrg cta bl nl eff aaox3 no le edema abd nt nd pos bs no jaundice diaphoresis CBC, BMP 07/25/18 05:50 07/25/18 05:50 echo 07/2018 severe conc LVH, nl LVfunction, mild MR, mild AR mibi 07/2018 mod zone of inferolateral fixed defect c/w diaphragmatic attenuation, EF 87% Tele: sr Assessment/Plan 77 yo A female with ESRD on HD, NIDDM, HTN and HPL now admitted with gangrenous left 4th toe that will require a peripheral angiogram with possible BKA. Left toe gangrene -Abx as per primary team - s/p tibial artery angioplasty, plan per vascular-->HBO, med rx for now HTN - controlled (not on meds) -Continue to follow HPL -Stable on low intensity statin ESRD -HD as per primary team cardiac garcia nick, dc tele
--- NOTE | 2018-07-26 11:05 | PN ---
Progress Note (short form) - Note Progress Note: Patient seen in bed. No distress. vss, Tmax 98.1 +gangarene 4th toe complete left, 3rd toe demarcating left, +changes tip of great toe today left, +pvd, -drainage, +dry, extending to mid foot over 4th metatarsal, wbc=10.2 PVD Gangarene Discussed with vascular. Will allow to demarcate. Will consider debridement once stabilizes. No evidence of gas. Dressing as per vascular.
[2018-07-26] MEDS: POLYETHYLENE GLYCOL 3350 119 GM BTL PO SCH ×2 (11:12→22:35)
[2018-07-26] MEDS ORDERED: EPOETIN ALFA 10,000 UNIT/1 ML VIAL IVPUSH ONE (11:15)
--- NOTE | 2018-07-26 11:54 | PN ---
Teaching Attending Note Name of Resident: Pati Salazar ATTENDING PHYSICIAN STATEMENT I saw and evaluated the patient. I reviewed the resident's note and discussed the case with the resident. I agree with the resident's findings and plan as documented. SUBJECTIVE: Patient has no complaints. OBJECTIVE: Vital Signs Period Temp Pulse Resp BP Sys/Jha Pulse Ox Last 24 Hr 97.9 F-99.6 F 77-96 18-20 113-151/58-86 98 HEART: S1S2, RRR LUNGS: Clear ABDOMEN: Soft, non-tender, non-distended, normal BS EXTREMITIES: No edema, left foot warm, gangrene of left 3rd and 4th toes extending to the dorsal surface of the foot Laboratory Results - last 24 hr 07/25/18 07/25/18 07/25/18 11:47 17:15 20:56 POC Glucometer 141 153 159 07/26/18 05:27 POC Glucometer 82 Current Medications Generic Name Dose Route Start Last Admin Trade Name Freq PRN Reason Stop Dose Admin Acetaminophen 650 mg 07/25/18 12:47 Tylenol - PO Q4H PRN FEVER Atorvastatin Calcium 10 mg 07/25/18 22:00 07/25/18 22:10 Lipitor - PO 10 mg HS NOE Administration Clopidogrel Bisulfate 75 mg 07/26/18 10:00 07/26/18 10:11 Plavix - PO 75 mg DAILY NOE Administration Heparin Sodium (Porcine) 5,000 unit 07/25/18 14:00 07/26/18 05:14 Heparin - SQ 5,000 unit TID NOE Administration Clindamycin Phosphate 600 mg in 50 mls @ 100 mls/hr 07/25/18 15:00 07/26/18 09:09 Cleocin 600 Mg Premix Ivpb - IVPB 100 mls/hr Q6H-IV NOE Administration Protocol Piperacillin Sod/Tazobactam 50 mls @ 100 mls/hr 07/25/18 18:00 07/26/18 11:10 Sod 2.25 gm/ Dextrose IVPB 100 mls/hr Q8H-IV NOE Administration Protocol Sodium Chloride 250 mls @ 3,000 mls/hr 07/25/18 13:29 Normal Saline - IV 07/26/18 13:29 PRN PRN Hypotension during Dialysis Oxycodone HCl 5 mg 07/25/18 12:47 07/26/18 10:30 Roxicodone - PO 5 mg Q4H PRN Administration PAIN LEVEL 6-10 Polyethylene Glycol 17 gm 07/25/18 22:00 07/26/18 11:12 Miralax (For Daily Use) - PO Not Given BID NOE Sevelamer Carbonate 800 mg 07/25/18 17:30 07/26/18 11:12 Renvela - PO 800 mg TIDCM ONE Administration ASSESSMENT AND PLAN: This is a 77 year old woman with a history of ESRD, type 2 DM, HTN, hyperlipidemia who presented to the ED with pain in her left foot. 1. 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 Hypertension - On no meds - Continue to monitor BP 3. ESRD with renal osteodystrophy - Continue HD, Renvela 4. Hyperlipidemia - Continue Lipitor 5. Type 2 DM - Diet controlled 6. Anemia secondary to chronic illness/CKD - Continue Procrit
--- NOTE | 2018-07-26 12:26 | PN ---
Progress Note (short form) - Note Progress Note: Renal follow up for ESRD on HD Pt seen and examined during dialysis BP stable, goal UF is 2.5L access with good flow pt without any acute complaints Vital Signs Temperature 98.4 F 07/26/18 11:20 Pulse Rate 66 07/26/18 12:00 Respiratory Rate 16 07/26/18 12:00 Blood Pressure 149/68 07/26/18 12:00 O2 Sat by Pulse Oximetry (%) 98 07/26/18 10:00 Intake & Output 07/23/18 07/24/18 07/25/18 07/26/18 23:59 23:59 23:59 23:59 Intake Total 0685 850 8124 160 Balance 0816 277 0176 160 NAD no Le edema CBC, BMP 07/25/18 05:50 07/25/18 05:50 Current Medications Acetaminophen (Tylenol -) 650 mg PO Q4H PRN PRN Reason: FEVER Atorvastatin Calcium (Lipitor -) 10 mg PO HS NOE Last Admin: 07/25/18 22:10 Dose: 10 mg Clopidogrel Bisulfate (Plavix -) 75 mg PO DAILY NOE Last Admin: 07/26/18 10:11 Dose: 75 mg Heparin Sodium (Porcine) (Heparin -) 5,000 unit SQ TID NOE Last Admin: 07/26/18 05:14 Dose: 5,000 unit Clindamycin Phosphate (Cleocin 600 Mg Premix Ivpb -) 600 mg in 50 mls @ 100 mls /hr IVPB Q6H-IV NOE; Protocol Last Admin: 07/26/18 09:09 Dose: 100 mls/hr Piperacillin Sod/Tazobactam (Sod 2.25 gm/ Dextrose) 50 mls @ 100 mls/hr IVPB Q8H-IV NOE; Protocol Last Admin: 07/26/18 11:10 Dose: 100 mls/hr Sodium Chloride (Normal Saline -) 250 mls @ 3,000 mls/hr IV PRN PRN PRN Reason: Hypotension during Dialysis Stop: 07/26/18 13:29 Oxycodone HCl (Roxicodone -) 5 mg PO Q4H PRN PRN Reason: PAIN LEVEL 6-10 Last Admin: 07/26/18 10:30 Dose: 5 mg Polyethylene Glycol (Miralax (For Daily Use) -) 17 gm PO BID NOE Last Admin: 07/26/18 11:12 Dose: Not Given Sevelamer Carbonate (Renvela -) 800 mg PO TIDCM [facility] Last Admin: 07/26/18 11:12 Dose: 800 mg 77 year old AA woman with hx of ESRD on HD, DM, hypertension who presented with worsening infection of her foot #Gangrene of LE #suspected arterial insufficiency of LE #ESRD on HD #DM #Anemia #Renal Osteodystrophy Tolerating dialysis well, UF as tolerated will maintain on TTS HD schedule while inpatient dose all meds for intermittent HD Renal diet, 1.2L fluid restriction Vascular follow up on IV Abx Asa Smith DO
[2018-07-26 12:58] LABS: HEMATOCRIT 24.5 % (32.4-45.2); HEMOGLOBIN 7.8 GM/dL (10.7-15.3); MCH 30.6 pg (25.7-33.7); MEAN CELL VOLUME 95.6 fl (80-96); MEAN PLT VOLUME 7.6 fl (7.5-11.1); PLATELET COUNT 211 K/MM3 (134-434); RBC 2.56 M/mm3 (3.60-5.2); RDW 17.6 % (11.6-15.6); WHITE BLOOD COUNT 9.9 K/mm3 (4.0-10.0)
[2018-07-26 13:22] LABS: ANION GAP 8 MMOL/L (8-16); BLOOD UREA NITROGEN 25 mg/dL (7-18); CALCIUM 8.4 mg/dL (8.5-10.1); CHLORIDE 94 mmol/L (98-107); CO2 33 mmol/L (21-32); CREATININE 4.3 mg/dL (0.55-1.3); GLUCOSE,RANDOM 107 mg/dL (74-106); POTASSIUM 4.1 mmol/L (3.5-5.1); SODIUM 135 mmol/L (136-145)
--- NOTE | 2018-07-26 14:45 | PN ---
Physical Exam: SUBJECTIVE: Patient seen and examined at bed side this morning. Feels better. NO complaints. Denies chest pain, sob, cough, palpitation, abdominal pain, nausea or vomiting. No BM today. No acute overnight events. OBJECTIVE: Vital Signs Period Temp Pulse Resp BP Sys/Jha Pulse Ox Last 24 Hr 97.9 F-99.6 F 66-88 16-20 122-151/58-86 98 GENERAL: Elderly female, is awake, alert, and fully oriented, in no acute distress. HEAD: Normal with no signs of trauma. EYES: EOM intact , pallor +, No icterus. ENT: Ears normal, moist mucous membranes. NECK: Supple. LUNGS: B.L Breath sounds equal, clear to auscultation bilaterally, no wheezes, no crackles, no accessory muscle use. HEART: Regular rate and rhythm, S1, S2 without murmur, rub or gallop. ABDOMEN: Soft, nontender, no organomegaly, BS + UPPER EXTREMITIES: Left upper forearm-fistula functioning, 2+ pulses, warm, well -perfused, no edema. LOWER EXTREMITIES: LEFT: blackish discoloration from the 3 Left digits till the bases, DP TP + by doppler. NEUROLOGICAL: No facial droop. Normal speech, gait not observed. PSYCH: Normal mood, normal affect. SKIN: Warm, dry, normal turgor, no rashes or lesions noted Laboratory Results - last 24 hr 07/25/18 07/25/18 07/26/18 17:15 20:56 05:27 WBC RBC Hgb Hct MCV MCH MCHC RDW Plt Count MPV Sodium Potassium Chloride Carbon Dioxide Anion Gap BUN Creatinine Creat Clearance w eGFR POC Glucometer 153 159 82 Random Glucose Calcium 07/26/18 07/26/18 11:30 11:30 WBC 9.9 RBC 2.56 L Hgb 7.8 L Hct 24.5 L MCV 95.6 MCH 30.6 MCHC 32.0 RDW 17.6 H Plt Count 211 MPV 7.6 Sodium 135 L Potassium 4.1 Chloride 94 L Carbon Dioxide 33 H Anion Gap 8 BUN 25 H Creatinine 4.3 H Creat Clearance w eGFR 9.96 POC Glucometer Random Glucose 107 H Calcium 8.4 L Active Medications Generic Name Dose Route Start Last Admin Trade Name Freq PRN Reason Stop Dose Admin Acetaminophen 650 mg 07/25/18 12:47 Tylenol - PO Q4H PRN FEVER Atorvastatin Calcium 10 mg 07/25/18 22:00 07/25/18 22:10 Lipitor - PO 10 mg HS NOE Administration Clopidogrel Bisulfate 75 mg 07/26/18 10:00 07/26/18 10:11 Plavix - PO 75 mg DAILY NOE Administration Heparin Sodium (Porcine) 5,000 unit 07/25/18 14:00 07/26/18 05:14 Heparin - SQ 5,000 unit TID NOE Administration Clindamycin Phosphate 600 mg in 50 mls @ 100 mls/hr 07/25/18 15:00 07/26/18 09:09 Cleocin 600 Mg Premix Ivpb - IVPB 100 mls/hr Q6H-IV NOE Administration Protocol Piperacillin Sod/Tazobactam 50 mls @ 100 mls/hr 07/25/18 18:00 07/26/18 11:10 Sod 2.25 gm/ Dextrose IVPB 100 mls/hr Q8H-IV NOE Administration Protocol Oxycodone HCl 5 mg 07/25/18 12:47 07/26/18 10:30 Roxicodone - PO 5 mg Q4H PRN Administration PAIN LEVEL 6-10 Polyethylene Glycol 17 gm 07/25/18 22:00 07/26/18 11:12 Miralax (For Daily Use) - PO Not Given BID NOE Sevelamer Carbonate 800 mg 07/25/18 17:30 07/26/18 11:12 Renvela - PO 800 mg TIDCM NOE Administration ASSESSMENT/PLAN: Lower ext CT 07/18/18 shows Air/Gas accumulation is seen within the soft tissues surrounding the fourth toe consistent with gas forming infection Stress test done 07/23: Overall negative pharmacologic stress test. EF 87 % ASSESSMENT/PLAN: Patient is a 77 year old female PMHx of ESRD (T,Th,S), DM, HTN, HLD, admitted with Left 4th toe wound and pain for a month. 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 Heparin sq started post procedure. Seen by Podiatry today. Amputation if it gets worse. # Leukocytosis resolved # Hypertension-controlled Diet controlled # ESRD (TTS) Creatinine 4.3 today. HD today Continue Sevelamer 800 mg PO TID Avoid nephrotoxic drugs Fluid restriction 1.2L/day # Hyperlipidemia Continue Statin 10mg # FEN Not on IV fluids, can tolerate PO. Electrolytes WNl Sodium/Diabetic diet # Prophylaxis For DVT: On Heparin sq 5000 TID For GI: Not indicated # Code Status: Full Code # Dispo: Admitted in Tele- no acute events since admission. Will downgrade to Med-Surg. Illness, Investigation and Plan of care explained to the patient. She verbalized understanding. Case discussed with Dr. Moon. Problem List - Problems (1) Chronic kidney disease, stage 5, kidney failure Code(s): N18.5 - CHRONIC KIDNEY DISEASE, STAGE 5 (2) DVT prophylaxis Code(s): [id number] - (3) Foot ulcer Code(s): L97.509 - NON-PRESSURE CHRONIC ULCER OTH PRT UNSP FOOT W UNSP SEVERITY Qualifiers: Laterality: left Non-pressure ulcer stage: unspecified non-pressure ulcer stage Qualified Code(s): L97.529 - Non-pressure chronic ulcer of other part of left foot with unspecified severity (4) Gas gangrene of foot Code(s): A48.0 - GAS GANGRENE (5) Hypokalemia Code(s): E87.6 - HYPOKALEMIA (6) ESRD (end stage renal disease) Code(s): N18.6 - END STAGE RENAL DISEASE Visit type - Emergency Visit Emergency Visit: Yes ED Registration Date: 07/18/18 Care time: The patient presented to the Emergency Department on the above date and was hospitalized for further evaluation of their emergent condition. - New Patient This patient is new to me today: No - Critical Care Critical Care patient: No - Discharge Referral Referred to [facility] Med [facility] No
--- NOTE | 2018-07-26 14:57 | PN ---
Progress Note, Physician History of Present Illness: stable no complaints - Current Medication List Current Medications: Active Medications Acetaminophen (Tylenol -) 650 mg PO Q4H PRN PRN Reason: FEVER Atorvastatin Calcium (Lipitor -) 10 mg PO HS [facility] Last Admin: 07/25/18 22:10 Dose: 10 mg Clopidogrel Bisulfate (Plavix -) 75 mg PO DAILY [facility] Last Admin: 07/26/18 10:11 Dose: 75 mg Heparin Sodium (Porcine) (Heparin -) 5,000 unit SQ TID [facility] Last Admin: 07/26/18 05:14 Dose: 5,000 unit Clindamycin Phosphate (Cleocin 600 Mg Premix Ivpb -) 600 mg in 50 mls @ 100 mls /hr IVPB Q6H-IV [facility]; Protocol Last Admin: 07/26/18 09:09 Dose: 100 mls/hr Piperacillin Sod/Tazobactam (Sod 2.25 gm/ Dextrose) 50 mls @ 100 mls/hr IVPB Q8H-IV NOE; Protocol Last Admin: 07/26/18 11:10 Dose: 100 mls/hr Oxycodone HCl (Roxicodone -) 5 mg PO Q4H PRN PRN Reason: PAIN LEVEL 6-10 Last Admin: 07/26/18 10:30 Dose: 5 mg Polyethylene Glycol (Miralax (For Daily Use) -) 17 gm PO BID [facility] Last Admin: 07/26/18 11:12 Dose: Not Given Sevelamer Carbonate (Renvela -) 800 mg PO TIDCM [facility] Last Admin: 07/26/18 11:12 Dose: 800 mg - Objective Vital Signs: Vital Signs Temperature 98.4 F 07/26/18 11:20 Pulse Rate 66 07/26/18 14:30 Respiratory Rate 18 07/26/18 14:30 Blood Pressure 135/60 07/26/18 14:30 O2 Sat by Pulse Oximetry (%) 98 07/26/18 10:00 Constitutional: Yes: No Distress, Calm Cardiovascular: Yes: Regular Rate and Rhythm Respiratory: Yes: Regular, CTA Bilaterally Gastrointestinal: Yes: Normal Bowel Sounds, Soft Musculoskeletal: Yes: Other Extremities: Yes: Other Neurological: Yes: Alert, Oriented Psychiatric: Yes: Alert, Oriented Labs: CBC, BMP 07/26/18 11:30 07/26/18 11:30 INR, PTT INR 1.19 (0.83-1.09) H 07/24/18 21:30 Assessment/Plan Problem List - Problems (1) gas gangrene of foot Code(s): A48.0 - GAS GANGRENE (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 - OTHER DISORDERS OF CALCIUM METABOLISM (3) Chronic kidney disease, stage 5, kidney failure Code(s): N18.5 - CHRONIC KIDNEY DISEASE, STAGE 5 (4) GERD (gastroesophageal reflux disease) Code(s): K21.9 - GASTRO-ESOPHAGEAL REFLUX DISEASE WITHOUT ESOPHAGITIS (5) Hyperlipidemia Code(s): E78.5 - HYPERLIPIDEMIA, UNSPECIFIED Qualifiers: Hyperlipidemia type: pure hypercholesterolemia Qualified Code(s): E78.00 - Pure hypercholesterolemia, unspecified; E78.0 - Pure hypercholesterolemia (6) Hypertension Code(s): I10 - ESSENTIAL (PRIMARY) HYPERTENSION Qualifiers: Hypertension type: essential hypertension Qualified Code(s): I10 - Essential (primary) hypertension (7) Osteoarthritis Code(s): M19.90 - UNSPECIFIED OSTEOARTHRITIS, UNSPECIFIED SITE (8) Rheumatoid arthritis involving both hips Code(s): M06.9 - RHEUMATOID ARTHRITIS, UNSPECIFIED (9) Hypokalemia Code(s): E87.6 - HYPOKALEMIA plan continue abx await for final paln wound care dialysis rest as per the team needs amputation
[2018-07-26] MEDS: ATORVASTATIN CA 10 MG TABLET (FP) PO SCH (22:35)
[2018-07-27] MEDS ORDERED: PIPERACILLIN/TAZOBACTAM 2.25 GM VIAL IVPB ONE ×3 (02:17→16:39)
[2018-07-27] MEDS ORDERED: DEXTROSE 5%-WATER - 50 ML IVPB ONE ×3 (02:17→16:39)
[2018-07-27] MEDS: CLINDAMYCIN 600MG PREMIX IVPB 600 MG/50 ML BAG IVPB SCH ×4 (02:32→21:24)
[2018-07-27] MEDS: PIPERACILLIN/TAZOB 2.25 GM 2.25 GM in DEXTROSE 5%-WATER - 50 ML IVPB SCH ×3 (02:32→16:59)
[2018-07-27] MEDS: oxyCODONE HCL 5 MG TABLET PO PRN (02:42)
[2018-07-27] MEDS ORDERED: PT OWN MED DRAWER 7, Y5N ONE (06:44)
[2018-07-27] MEDS: HEPARIN NA (PORCINE) 5,000 UNITS/ML 1ML VIAL SQ SCH ×3 (06:57→21:23)
[2018-07-27 07:40] LABS: HEMATOCRIT 27.1 % (32.4-45.2); HEMOGLOBIN 8.5 GM/dL (10.7-15.3); MCH 30.2 pg (25.7-33.7); MCHC 31.2 g/dl (32.0-36.0); MEAN CELL VOLUME 96.7 fl (80-96); MEAN PLT VOLUME 7.4 fl (7.5-11.1); PLATELET COUNT 235 K/MM3 (134-434); RBC 2.81 M/mm3 (3.60-5.2); RDW 17.9 % (11.6-15.6); WHITE BLOOD COUNT 10.1 K/mm3 (4.0-10.0)
[2018-07-27 08:10] LABS: ANION GAP 12 MMOL/L (8-16); BLOOD UREA NITROGEN 14 mg/dL (7-18); CALCIUM 8.7 mg/dL (8.5-10.1); CHLORIDE 97 mmol/L (98-107); CO2 29 mmol/L (21-32); GLUCOSE,RANDOM 66 mg/dL (74-106); POTASSIUM 3.9 mmol/L (3.5-5.1); SODIUM 138 mmol/L (136-145)
[2018-07-27] MEDS: SEVELAMER CARBONATE 800 MG TAB (FP) PO SCH ×3 (08:59→17:01)
--- NOTE | 2018-07-27 10:42 | PN ---
Progress Note (short form) - Note Progress Note: History of Present Illness: no chest pain, palps, dizziness, lightheadedness, sob Current Medications Acetaminophen (Tylenol -) 650 mg PO Q4H PRN PRN Reason: FEVER Atorvastatin Calcium (Lipitor -) 10 mg PO HS [facility] Last Admin: 07/26/18 22:35 Dose: 10 mg Clopidogrel Bisulfate (Plavix -) 75 mg PO DAILY [facility] Last Admin: 07/26/18 10:11 Dose: 75 mg Heparin Sodium (Porcine) (Heparin -) 5,000 unit SQ TID [facility] Last Admin: 07/27/18 06:57 Dose: 5,000 unit Clindamycin Phosphate (Cleocin 600 Mg Premix Ivpb -) 600 mg in 50 mls @ 100 mls /hr IVPB Q6H-IV NOE; Protocol Last Admin: 07/27/18 02:32 Dose: 100 mls/hr Piperacillin Sod/Tazobactam (Sod 2.25 gm/ Dextrose) 50 mls @ 100 mls/hr IVPB Q8H-IV NOE; Protocol Last Admin: 07/27/18 02:32 Dose: 100 mls/hr Oxycodone HCl (Roxicodone -) 5 mg PO Q4H PRN PRN Reason: PAIN LEVEL 6-10 Last Admin: 07/27/18 02:42 Dose: 5 mg Polyethylene Glycol (Miralax (For Daily Use) -) 17 gm PO BID [facility] Last Admin: 07/26/18 22:35 Dose: Not Given Sevelamer Carbonate (Renvela -) 800 mg PO TIDCM [facility] Last Admin: 07/26/18 18:13 Dose: 800 mg Vital Signs Period Temp Pulse Resp BP Sys/Jha Pulse Ox Last 24 Hr 97.6 F-99.6 F 66-84 16-20 123-150/54-74 98 nad no jvd rrr s1s2 no mrg cta bl nl eff aaox3 no le edema abd nt nd pos bs no jaundice diaphoresis CBC, BMP 07/27/18 06:15 07/27/18 06:15 echo 07/2018 severe conc LVH, nl LVfunction, mild MR, mild AR mibi 07/2018 mod zone of inferolateral fixed defect c/w diaphragmatic attenuation, EF 87% Tele: sr Assessment/Plan 77 yo A female with ESRD on HD, NIDDM, HTN and HPL now admitted with gangrenous left 4th toe that will require a peripheral angiogram with possible BKA. Left toe gangrene -Abx as per primary team - s/p tibial artery angioplasty, plan per vascular-->HBO, med rx for now HTN - controlled (not on meds) -Continue to follow HPL -Stable on low intensity statin ESRD -HD as per primary team cardiac garcia stable, dc tele
[2018-07-27] MEDS: CLOPIDOGREL BISULFATE 75 MG TABLET (FP) PO SCH (10:58)
[2018-07-27] MEDS: POLYETHYLENE GLYCOL 3350 119 GM BTL PO SCH ×2 (10:59→21:24)
--- NOTE | 2018-07-27 12:24 | PN ---
Progress Note (short form) - Note Progress Note: Renal follow up for ESRD on HD Pt seen and examined at the bedside awake and alert no complaints feels better overall. Vital Signs Temperature 98.0 F 07/27/18 06:00 Pulse Rate 75 07/27/18 06:00 Respiratory Rate 20 07/27/18 09:00 Blood Pressure 133/54 L 07/27/18 06:00 O2 Sat by Pulse Oximetry (%) 98 07/27/18 09:00 NAD No LE edema CBC, BMP 07/27/18 06:15 07/27/18 06:15 Current Medications Acetaminophen (Tylenol -) 650 mg PO Q4H PRN PRN Reason: FEVER Atorvastatin Calcium (Lipitor -) 10 mg PO HS [facility] Last Admin: 07/26/18 22:35 Dose: 10 mg Clopidogrel Bisulfate (Plavix -) 75 mg PO DAILY [facility] Last Admin: 07/27/18 10:58 Dose: 75 mg Heparin Sodium (Porcine) (Heparin -) 5,000 unit SQ TID [facility] Last Admin: 07/27/18 06:57 Dose: 5,000 unit Clindamycin Phosphate (Cleocin 600 Mg Premix Ivpb -) 600 mg in 50 mls @ 100 mls /hr IVPB Q6H-IV [facility]; Protocol Last Admin: 07/27/18 10:59 Dose: 100 mls/hr Piperacillin Sod/Tazobactam (Sod 2.25 gm/ Dextrose) 50 mls @ 100 mls/hr IVPB Q8H-IV [facility]; Protocol Last Admin: 07/27/18 10:58 Dose: 100 mls/hr Oxycodone HCl (Roxicodone -) 5 mg PO Q4H PRN PRN Reason: PAIN LEVEL 6-10 Last Admin: 07/27/18 02:42 Dose: 5 mg Polyethylene Glycol (Miralax (For Daily Use) -) 17 gm PO BID NOE Last Admin: 07/27/18 10:59 Dose: 17 grams Sevelamer Carbonate (Renvela -) 800 mg PO TIDCM [facility] Last Admin: 07/27/18 12:13 Dose: 800 mg 77 year old AA woman with hx of ESRD on HD, DM, hypertension who presented with worsening infection of her foot #Gangrene of LE #suspected arterial insufficiency of LE #ESRD on HD #DM #Anemia #Renal Osteodystrophy s/p Angioplasty by vascular surgery will maintain on TIW HD schedule while inpatient on Zosyn and clindamycin for management of LE gangrene will continue to give epogen with dialysis for management of edema Asa Smith DO
--- NOTE | 2018-07-27 13:39 | PN ---
Progress Note (short form) - Note Progress Note: Patient seen in bed. No distress. vss, Tmax 98.0 +gangarene, unchanged from yesterday, +pvd, -drainage, +dry, extending to mid foot over 4th metatarsal, wbc=10.2 PVD Gangarene Discussed with Dr. Rodriguez. Will allow to demarcate. Dressing as per vascular.
--- NOTE | 2018-07-27 14:30 | PN ---
Teaching Attending Note Name of Resident: Pati Salazar ATTENDING PHYSICIAN STATEMENT I saw and evaluated the patient. I reviewed the resident's note and discussed the case with the resident. I agree with the resident's findings and plan as documented. SUBJECTIVE: No complaints. OBJECTIVE: Vital Signs Period Temp Pulse Resp BP Sys/Jha Pulse Ox Last 24 Hr 97.6 F-99.6 F 74-84 18-20 123-150/54-74 98-98 HEART: S1S2, RRR LUNGS: Clear ABDOMEN: Soft, non-tender, non-distended, normal BS EXTREMITIES: No edema, left foot warm, gangrene of left 3rd and 4th toes extending to the dorsal surface of the foot Laboratory Results - last 24 hr 07/26/18 07/27/18 07/27/18 21:15 05:34 06:15 WBC 10.1 H RBC 2.81 L Hgb 8.5 L Hct 27.1 L MCV 96.7 H MCH 30.2 MCHC 31.2 L RDW 17.9 H Plt Count 235 MPV 7.4 L Sodium Potassium Chloride Carbon Dioxide Anion Gap BUN Creatinine Creat Clearance w eGFR POC Glucometer 146 74 Random Glucose Calcium 07/27/18 06:15 WBC RBC Hgb Hct MCV MCH MCHC RDW Plt Count MPV Sodium 138 Potassium 3.9 Chloride 97 L Carbon Dioxide 29 Anion Gap 12 BUN 14 Creatinine 3.0 H Creat Clearance w eGFR 15.09 POC Glucometer Random Glucose 66 L Calcium 8.7 Current Medications Generic Name Dose Route Start Last Admin Trade Name Freq PRN Reason Stop Dose Admin Acetaminophen 650 mg 07/25/18 12:47 Tylenol - PO Q4H PRN FEVER Atorvastatin Calcium 10 mg 07/25/18 22:00 07/26/18 22:35 Lipitor - PO 10 mg HS NOE Administration Clopidogrel Bisulfate 75 mg 07/26/18 10:00 07/27/18 10:58 Plavix - PO 75 mg DAILY NOE Administration Heparin Sodium (Porcine) 5,000 unit 07/25/18 14:00 07/27/18 13:55 Heparin - SQ 5,000 unit TID NOE Administration Clindamycin Phosphate 600 mg in 50 mls @ 100 mls/hr 07/25/18 15:00 07/27/18 14:00 Cleocin 600 Mg Premix Ivpb - IVPB 100 mls/hr Q6H-IV NOE Administration Protocol Piperacillin Sod/Tazobactam 50 mls @ 100 mls/hr 07/25/18 18:00 07/27/18 10:58 Sod 2.25 gm/ Dextrose IVPB 100 mls/hr Q8H-IV NOE Administration Protocol Oxycodone HCl 5 mg 07/25/18 12:47 07/27/18 02:42 Roxicodone - PO 5 mg Q4H PRN Administration PAIN LEVEL 6-10 Polyethylene Glycol 17 gm 07/25/18 22:00 07/27/18 10:59 Miralax (For Daily Use) - PO 17 grams BID NOE Administration Sevelamer Carbonate 800 mg 07/25/18 17:30 07/27/18 12:13 Renvela - PO 800 mg TIDCM NOE Administration ASSESSMENT AND PLAN: This is a 77 year old woman with a history of ESRD, type 2 DM, HTN, hyperlipidemia who presented to the ED with pain in her left foot. 1. 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 Hypertension - On no meds - Continue to monitor BP 3. ESRD with renal osteodystrophy - Continue HD, Renvela 4. Hyperlipidemia - Continue Lipitor 5. Type 2 DM - Diet controlled 6. Anemia secondary to chronic illness/CKD - Continue Procrit
--- NOTE | 2018-07-27 14:57 | PN ---
Progress Note, Physician History of Present Illness: stable tolerating dialysis - Current Medication List Current Medications: Active Medications Acetaminophen (Tylenol -) 650 mg PO Q4H PRN PRN Reason: FEVER Atorvastatin Calcium (Lipitor -) 10 mg PO HS [facility] Last Admin: 07/26/18 22:35 Dose: 10 mg Clopidogrel Bisulfate (Plavix -) 75 mg PO DAILY [facility] Last Admin: 07/27/18 10:58 Dose: 75 mg Heparin Sodium (Porcine) (Heparin -) 5,000 unit SQ TID [facility] Last Admin: 07/27/18 13:55 Dose: 5,000 unit Clindamycin Phosphate (Cleocin 600 Mg Premix Ivpb -) 600 mg in 50 mls @ 100 mls /hr IVPB Q6H-IV [facility]; Protocol Last Admin: 07/27/18 14:00 Dose: 100 mls/hr Piperacillin Sod/Tazobactam (Sod 2.25 gm/ Dextrose) 50 mls @ 100 mls/hr IVPB Q8H-IV [facility]; Protocol Last Admin: 07/27/18 10:58 Dose: 100 mls/hr Oxycodone HCl (Roxicodone -) 5 mg PO Q4H PRN PRN Reason: PAIN LEVEL 6-10 Last Admin: 07/27/18 02:42 Dose: 5 mg Polyethylene Glycol (Miralax (For Daily Use) -) 17 gm PO BID [facility] Last Admin: 07/27/18 10:59 Dose: 17 grams Sevelamer Carbonate (Renvela -) 800 mg PO TIDCM [facility] Last Admin: 07/27/18 12:13 Dose: 800 mg - Objective Vital Signs: Vital Signs Temperature 98.0 F 07/27/18 14:35 Pulse Rate 82 07/27/18 14:35 Respiratory Rate 20 07/27/18 14:35 Blood Pressure 123/56 L 07/27/18 14:35 O2 Sat by Pulse Oximetry (%) 98 07/27/18 09:00 Constitutional: Yes: No Distress, Calm Cardiovascular: Yes: Regular Rate and Rhythm Respiratory: Yes: Regular, CTA Bilaterally Gastrointestinal: Yes: Normal Bowel Sounds, Soft Musculoskeletal: Yes: WNL Extremities: Yes: Other Wound/Incision: Yes: Other Neurological: Yes: Alert, Oriented Psychiatric: Yes: Alert, Oriented Labs: CBC, BMP 07/27/18 06:15 07/27/18 06:15 INR, PTT INR 1.19 (0.83-1.09) H 07/24/18 21:30 Assessment/Plan Problem List - Problems (1) gas gangrene of foot Code(s): A48.0 - GAS GANGRENE (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 - OTHER DISORDERS OF CALCIUM METABOLISM (3) Chronic kidney disease, stage 5, kidney failure Code(s): N18.5 - CHRONIC KIDNEY DISEASE, STAGE 5 (4) GERD (gastroesophageal reflux disease) Code(s): K21.9 - GASTRO-ESOPHAGEAL REFLUX DISEASE WITHOUT ESOPHAGITIS (5) Hyperlipidemia Code(s): E78.5 - HYPERLIPIDEMIA, UNSPECIFIED Qualifiers: Hyperlipidemia type: pure hypercholesterolemia Qualified Code(s): E78.00 - Pure hypercholesterolemia, unspecified; E78.0 - Pure hypercholesterolemia (6) Hypertension Code(s): I10 - ESSENTIAL (PRIMARY) HYPERTENSION Qualifiers: Hypertension type: essential hypertension Qualified Code(s): I10 - Essential (primary) hypertension (7) Osteoarthritis Code(s): M19.90 - UNSPECIFIED OSTEOARTHRITIS, UNSPECIFIED SITE (8) Rheumatoid arthritis involving both hips Code(s): M06.9 - RHEUMATOID ARTHRITIS, UNSPECIFIED (9) Hypokalemia Code(s): E87.6 - HYPOKALEMIA plan continue abx await for final paln wound care dialysis rest as per the team needs amputation
--- NOTE | 2018-07-27 17:05 | PN ---
Physical Exam: SUBJECTIVE: Patient seen and examined at bed side this morning. No complaints. Denies chest pain, sob, cough, palpitation, abdominal pain, nausea or vomiting. No BM today. No acute overnight events. OBJECTIVE: Vital Signs Period Temp Pulse Resp BP Sys/Jha Pulse Ox Last 24 Hr 97.8 F-99.6 F 75-84 18-20 123-150/54-66 98-98 GENERAL: Elderly female, is awake, alert, and fully oriented, in no acute distress. HEAD: Normal with no signs of trauma. EYES: EOM intact , pallor +, No icterus. ENT: Ears normal, moist mucous membranes. NECK: Supple. LUNGS: B.L Breath sounds equal, clear to auscultation bilaterally, no wheezes, no crackles, no accessory muscle use. HEART: Regular rate and rhythm, S1, S2 without murmur, rub or gallop. ABDOMEN: Soft, nontender, no organomegaly, BS + UPPER EXTREMITIES: Left upper forearm-fistula functioning, 2+ pulses, warm, well -perfused, no edema. LOWER EXTREMITIES: LEFT: blackish discoloration from the 3 Left digits till the bases, DP TP + by doppler. NEUROLOGICAL: No facial droop. Normal speech, gait not observed. PSYCH: Normal mood, normal affect. SKIN: Warm, dry, normal turgor, no rashes or lesions noted Laboratory Results - last 24 hr 07/26/18 07/27/18 07/27/18 21:15 05:34 06:15 WBC 10.1 H RBC 2.81 L Hgb 8.5 L Hct 27.1 L MCV 96.7 H MCH 30.2 MCHC 31.2 L RDW 17.9 H Plt Count 235 MPV 7.4 L Sodium Potassium Chloride Carbon Dioxide Anion Gap BUN Creatinine Creat Clearance w eGFR POC Glucometer 146 74 Random Glucose Calcium 07/27/18 06:15 WBC RBC Hgb Hct MCV MCH MCHC RDW Plt Count MPV Sodium 138 Potassium 3.9 Chloride 97 L Carbon Dioxide 29 Anion Gap 12 BUN 14 Creatinine 3.0 H Creat Clearance w eGFR 15.09 POC Glucometer Random Glucose 66 L Calcium 8.7 Active Medications Generic Name Dose Route Start Last Admin Trade Name Freq PRN Reason Stop Dose Admin Acetaminophen 650 mg 07/25/18 12:47 Tylenol - PO Q4H PRN FEVER Atorvastatin Calcium 10 mg 07/25/18 22:00 07/26/18 22:35 Lipitor - PO 10 mg HS NOE Administration Clopidogrel Bisulfate 75 mg 07/26/18 10:00 07/27/18 10:58 Plavix - PO 75 mg DAILY NOE Administration Heparin Sodium (Porcine) 5,000 unit 07/25/18 14:00 07/27/18 13:55 Heparin - SQ 5,000 unit TID NOE Administration Clindamycin Phosphate 600 mg in 50 mls @ 100 mls/hr 07/25/18 15:00 07/27/18 14:00 Cleocin 600 Mg Premix Ivpb - IVPB 100 mls/hr Q6H-IV NOE Administration Protocol Piperacillin Sod/Tazobactam 50 mls @ 100 mls/hr 07/25/18 18:00 07/27/18 16:59 Sod 2.25 gm/ Dextrose IVPB 100 mls/hr Q8H-IV NOE Administration Protocol Oxycodone HCl 5 mg 07/25/18 12:47 07/27/18 02:42 Roxicodone - PO 5 mg Q4H PRN Administration PAIN LEVEL 6-10 Polyethylene Glycol 17 gm 07/25/18 22:00 07/27/18 10:59 Miralax (For Daily Use) - PO 17 grams BID NOE Administration Sevelamer Carbonate 800 mg 07/25/18 17:30 07/27/18 17:01 Renvela - PO 800 mg TIDCM NOE Administration ASSESSMENT/PLAN: Lower ext CT 07/18/18 shows Air/Gas accumulation is seen within the soft tissues surrounding the fourth toe consistent with gas forming infection Stress test done 07/23: Overall negative pharmacologic stress test. EF 87 % ASSESSMENT/PLAN: Patient is a 77 year old female PMHx of ESRD (T,Th,S), DM, HTN, HLD, admitted with Left 4th toe wound and pain for a month. # Gas gangrene of left 4th toe s/p tibial artery angioplasty 07/24/2018 Continue Zosyn 2.25 gm Q8H Day 8 Continue Clindamycin 600mg IV Q6H Day 5 Continue Plavix 75 mg PO daily Diet advanced to Diabetic/sodium controlled diet. Heparin sq started post procedure. Seen by Podiatry today. Amputation if it gets worse. # Normocytic anemia likely from ESRD # Leukocytosis resolved # Hypertension-controlled Diet controlled # ESRD (TTS) Creatinine 4.3 --> 3 today. HD done yesterday 07/26/18 Continue Sevelamer 800 mg PO TID Avoid nephrotoxic drugs Fluid restriction 1.2L/day # Hyperlipidemia Continue Statin 10mg # FEN Not on IV fluids, can tolerate PO. Electrolytes WNl Sodium/Diabetic diet # Prophylaxis For DVT: On Heparin sq 5000 TID For GI: Not indicated # Code Status: Full Code # Dispo: Admitted in Tele- no acute events since admission. Will downgrade to Med-Surg. Illness, Investigation and Plan of care explained to the patient. She verbalized understanding. Case discussed with Dr. Moon. Problem List - Problems (1) Chronic kidney disease, stage 5, kidney failure Code(s): N18.5 - CHRONIC KIDNEY DISEASE, STAGE 5 (2) DVT prophylaxis Code(s): [id number] - (3) Foot ulcer Code(s): L97.509 - NON-PRESSURE CHRONIC ULCER OTH PRT UNSP FOOT W UNSP SEVERITY Qualifiers: Laterality: left Non-pressure ulcer stage: unspecified non-pressure ulcer stage Qualified Code(s): L97.529 - Non-pressure chronic ulcer of other part of left foot with unspecified severity (4) Gas gangrene of foot Code(s): A48.0 - GAS GANGRENE (5) Hypokalemia Code(s): E87.6 - HYPOKALEMIA (6) ESRD (end stage renal disease) Code(s): N18.6 - END STAGE RENAL DISEASE Visit type - Emergency Visit Emergency Visit: Yes ED Registration Date: 07/18/18 Care time: The patient presented to the Emergency Department on the above date and was hospitalized for further evaluation of their emergent condition. - New Patient This patient is new to me today: No - Critical Care Critical Care patient: No - Discharge Referral Referred to [facility] Med [facility].C[facility] No
[2018-07-27] MEDS: ATORVASTATIN CA 10 MG TABLET (FP) PO SCH (21:23)
[2018-07-28] MEDS ORDERED: PIPERACILLIN/TAZOBACTAM 2.25 GM VIAL IVPB ONE ×2 (01:20→17:09)
[2018-07-28] MEDS ORDERED: DEXTROSE 5%-WATER - 50 ML IVPB ONE ×2 (01:20→17:09)
[2018-07-28] MEDS: PIPERACILLIN/TAZOB 2.25 GM 2.25 GM in DEXTROSE 5%-WATER - 50 ML IVPB SCH ×3 (01:31→17:37)
[2018-07-28] MEDS: CLINDAMYCIN 600MG PREMIX IVPB 600 MG/50 ML BAG IVPB SCH ×4 (03:34→20:47)
[2018-07-28] MEDS: HEPARIN NA (PORCINE) 5,000 UNITS/ML 1ML VIAL SQ SCH ×3 (05:27→21:32)
[2018-07-28] MEDS ORDERED: SODIUM CHLORIDE 250 ML IV PRN (07:21)
[2018-07-28 07:55] LABS: HEMATOCRIT 26.3 % (32.4-45.2); HEMOGLOBIN 8.6 GM/dL (10.7-15.3); MCH 31.1 pg (25.7-33.7); MCHC 32.5 g/dl (32.0-36.0); MEAN CELL VOLUME 95.6 fl (80-96); MEAN PLT VOLUME 7.3 fl (7.5-11.1); PLATELET COUNT 244 K/MM3 (134-434); RBC 2.76 M/mm3 (3.60-5.2); RDW 17.7 % (11.6-15.6); WHITE BLOOD COUNT 7.7 K/mm3 (4.0-10.0)
[2018-07-28 08:26] LABS: ANION GAP 12 MMOL/L (8-16); BLOOD UREA NITROGEN 24 mg/dL (7-18); CALCIUM 8.8 mg/dL (8.5-10.1); CHLORIDE 92 mmol/L (98-107); CO2 30 mmol/L (21-32); CREATININE 4.1 mg/dL (0.55-1.3); GLUCOSE,RANDOM 97 mg/dL (74-106); POTASSIUM 3.9 mmol/L (3.5-5.1); SODIUM 133 mmol/L (136-145)
[2018-07-28] MEDS: SEVELAMER CARBONATE 800 MG TAB (FP) PO SCH ×3 (08:46→17:37)
[2018-07-28] MEDS ORDERED: EPOETIN ALFA 20,000 UNIT/1 ML VIAL IVPUSH ONE (10:00)
--- NOTE | 2018-07-28 10:15 | PN ---
Progress Note (short form) - Note Progress Note: - Note Progress Note: History of Present Illness: no chest pain, palps, dizziness, lightheadedness, sob Current Medications Acetaminophen (Tylenol -) 650 mg PO Q4H PRN PRN Reason: FEVER Atorvastatin Calcium (Lipitor -) 10 mg PO HS [facility] Last Admin: 07/27/18 21:23 Dose: 10 mg Clopidogrel Bisulfate (Plavix -) 75 mg PO DAILY [facility] Last Admin: 07/27/18 10:58 Dose: 75 mg Heparin Sodium (Porcine) (Heparin -) 5,000 unit SQ TID [facility] Last Admin: 07/28/18 05:27 Dose: 5,000 unit Clindamycin Phosphate (Cleocin 600 Mg Premix Ivpb -) 600 mg in 50 mls @ 100 mls /hr IVPB Q6H-IV [facility]; Protocol Last Admin: 07/28/18 03:34 Dose: 100 mls/hr Piperacillin Sod/Tazobactam (Sod 2.25 gm/ Dextrose) 50 mls @ 100 mls/hr IVPB Q8H-IV [facility]; Protocol Last Admin: 07/28/18 01:31 Dose: 100 mls/hr Sodium Chloride (Normal Saline -) 250 mls @ 3,000 mls/hr IV PRN PRN PRN Reason: Hypotension during Dialysis Stop: 07/28/18 18:00 Oxycodone HCl (Roxicodone -) 5 mg PO Q4H PRN PRN Reason: PAIN LEVEL 6-10 Last Admin: 07/27/18 02:42 Dose: 5 mg Polyethylene Glycol (Miralax (For Daily Use) -) 17 gm PO BID [facility] Last Admin: 07/27/18 21:24 Dose: 17 grams Sevelamer Carbonate (Renvela -) 800 mg PO TIDCM [facility] Last Admin: 07/28/18 08:46 Dose: Not Given Vital Signs Period Temp Pulse Resp BP Sys/Jha Pulse Ox Last 24 Hr 97.7 F-98.2 F 69-82 18-20 123-161/56-77 95 nad no jvd rrr s1s2 no mrg cta bl nl eff aaox3 no le edema abd nt nd pos bs no jaundice diaphoresis echo 07/2018 severe conc LVH, nl LVfunction, mild MR, mild AR mibi 07/2018 mod zone of inferolateral fixed defect c/w diaphragmatic attenuation, EF 87% Tele: sinus Assessment/Plan 77 yo A female with ESRD on HD, NIDDM, HTN and HPL now admitted with gangrenous left 4th toe that will require a peripheral angiogram with possible BKA. Left toe gangrene, preop -Abx as per primary team - s/p tibial artery angioplasty -->HBO, med rx for now - no cardiac contraindication to possible TMA or BKA, plan per vascular HTN - controlled (not on meds) -Continue to follow HPL -Stable on low intensity statin ESRD -HD as per primary team cardiac garcia nick, dc tele
--- NOTE | 2018-07-28 11:56 | PN ---
Progress Note (short form) - Note Progress Note: Patient seen in dialysis bed. No distress. vss, Tmax 98.0 +gangarene progressing, +mal ododor, +pvd, -drainage, +dry, extending to mid foot over 4th metatarsal, wbc=7.7 PVD Gangarene Patient needs at least a TMA possibly BKA left. will discuss with vascular and proceed with possible intervention..
[2018-07-28] MEDS: POLYETHYLENE GLYCOL 3350 119 GM BTL PO SCH ×2 (12:37→21:32)
--- NOTE | 2018-07-28 13:57 | PN ---
Progress Note (short form) - Note Progress Note: covering dr kaufman Problems 77 year old AA woman with hx of ESRD on HD, DM, hypertension presented with worsening infection of her foot #Gangrene of LE #suspected arterial insufficiency of LE #ESRD on HD #DM #Anemia #Renal Osteodystrophy Current Medications Acetaminophen (Tylenol -) 650 mg PO Q4H PRN PRN Reason: FEVER Atorvastatin Calcium (Lipitor -) 10 mg PO HS [facility] Last Admin: 07/27/18 21:23 Dose: 10 mg Clopidogrel Bisulfate (Plavix -) 75 mg PO DAILY [facility] Last Admin: 07/27/18 10:58 Dose: 75 mg Heparin Sodium (Porcine) (Heparin -) 5,000 unit SQ TID [facility] Last Admin: 07/28/18 05:27 Dose: 5,000 unit Clindamycin Phosphate (Cleocin 600 Mg Premix Ivpb -) 600 mg in 50 mls @ 100 mls /hr IVPB Q6H-IV [facility]; Protocol Last Admin: 07/28/18 10:00 Dose: Not Given Piperacillin Sod/Tazobactam (Sod 2.25 gm/ Dextrose) 50 mls @ 100 mls/hr IVPB Q8H-IV [facility]; Protocol Last Admin: 07/28/18 01:31 Dose: 100 mls/hr Sodium Chloride (Normal Saline -) 250 mls @ 3,000 mls/hr IV PRN PRN PRN Reason: Hypotension during Dialysis Stop: 07/28/18 18:00 Oxycodone HCl (Roxicodone -) 5 mg PO Q4H PRN PRN Reason: PAIN LEVEL 6-10 Last Admin: 07/27/18 02:42 Dose: 5 mg Polyethylene Glycol (Miralax (For Daily Use) -) 17 gm PO BID [facility] Last Admin: 07/28/18 12:37 Dose: Not Given Sevelamer Carbonate (Renvela -) 800 mg PO TIDCM [facility] Last Admin: 07/28/18 08:46 Dose: Not Given Last Vital Signs Temp Pulse Resp BP Pulse Ox 97.7 F 74 18 144/75 95 07/28/18 08:40 07/28/18 12:20 07/28/18 12:20 07/28/18 12:20 07/28/18 09:00 CBC, BMP 07/28/18 06:07/28/18 06:30 s/p uneventful hd today next hd on monday because of holiday schedule s/p Angioplasty by vascular surgery will maintain on TIW HD schedule while inpatient on Zosyn and clindamycin for management of LE gangrene will continue to give epogen with dialysis for management of edema
[2018-07-28] MEDS: CLOPIDOGREL BISULFATE 75 MG TABLET (FP) PO SCH (14:13)
--- NOTE | 2018-07-28 14:14 | PN ---
Progress Note, Physician History of Present Illness: Pt seen and examined. Events noted. Pt is s/p angioplasty. Denies Lt foot pain, remains afebrile. - Current Medication List Current Medications: Active Medications Acetaminophen (Tylenol -) 650 mg PO Q4H PRN PRN Reason: FEVER Atorvastatin Calcium (Lipitor -) 10 mg PO HS [facility] Last Admin: 07/27/18 21:23 Dose: 10 mg Clopidogrel Bisulfate (Plavix -) 75 mg PO DAILY [facility] Last Admin: 07/27/18 10:58 Dose: 75 mg Heparin Sodium (Porcine) (Heparin -) 5,000 unit SQ TID [facility] Last Admin: 07/28/18 05:27 Dose: 5,000 unit Clindamycin Phosphate (Cleocin 600 Mg Premix Ivpb -) 600 mg in 50 mls @ 100 mls /hr IVPB Q6H-IV [facility]; Protocol Last Admin: 07/28/18 10:00 Dose: Not Given Piperacillin Sod/Tazobactam (Sod 2.25 gm/ Dextrose) 50 mls @ 100 mls/hr IVPB Q8H-IV [facility]; Protocol Last Admin: 07/28/18 01:31 Dose: 100 mls/hr Sodium Chloride (Normal Saline -) 250 mls @ 3,000 mls/hr IV PRN PRN PRN Reason: Hypotension during Dialysis Stop: 07/28/18 18:00 Oxycodone HCl (Roxicodone -) 5 mg PO Q4H PRN PRN Reason: PAIN LEVEL 6-10 Last Admin: 07/27/18 02:42 Dose: 5 mg Polyethylene Glycol (Miralax (For Daily Use) -) 17 gm PO BID [facility] Last Admin: 07/28/18 12:37 Dose: Not Given Sevelamer Carbonate (Renvela -) 800 mg PO TIDCM [facility] Last Admin: 07/28/18 08:46 Dose: Not Given - Objective Vital Signs: Vital Signs Temperature 97.7 F 07/28/18 08:40 Pulse Rate 74 07/28/18 12:20 Respiratory Rate 18 07/28/18 12:20 Blood Pressure 144/75 07/28/18 12:20 O2 Sat by Pulse Oximetry (%) 95 07/28/18 09:00 Constitutional: Yes: No Distress, Calm Cardiovascular: Yes: Regular Rate and Rhythm Respiratory: Yes: Regular Gastrointestinal: Yes: Normal Bowel Sounds, Soft Extremities: Yes: Other (Lt 3rd/4th toe gangrenous +malodor) Neurological: Yes: Alert Labs: CBC, BMP 07/28/18 06:30 07/28/18 06:30 INR, PTT INR 1.19 (0.83-1.09) H 07/24/18 21:30 Problem List - Problems (1) Gas gangrene of foot Code(s): A48.0 - GAS GANGRENE (2) AVF (arteriovenous fistula) Code(s): I77.0 - ARTERIOVENOUS FISTULA, ACQUIRED (3) Anemia Code(s): D64.9 - ANEMIA, UNSPECIFIED Qualifiers: Anemia type: due to chronic kidney disease Chronic kidney disease stage: on chronic dialysis Qualified Code(s): N18.6 - End stage renal disease; D63.1 - Anemia in chronic kidney disease; Z99.2 - Dependence on renal dialysis (4) Diabetes Code(s): E11.9 - TYPE 2 DIABETES MELLITUS WITHOUT COMPLICATIONS Qualifiers: Diabetes mellitus type: type 2 Diabetes mellitus stamper blocker insulin use: without stamper blocker use Diabetes mellitus complication status: with kidney complications Diabetes mellitus complication detail: with chronic kidney disease Chronic kidney disease stage: on chronic dialysis Qualified Code(s) : E11.22 - Type 2 diabetes mellitus with diabetic chronic kidney disease; N18.6 - End stage renal disease; Z99.2 - Dependence on renal dialysis (5) ESRD (end stage renal disease) Code(s): N18.6 - END STAGE RENAL DISEASE (6) Hyperlipidemia Code(s): E78.5 - HYPERLIPIDEMIA, UNSPECIFIED Qualifiers: Hyperlipidemia type: pure hypercholesterolemia Qualified Code(s): E78.00 - Pure hypercholesterolemia, unspecified; E78.0 - Pure hypercholesterolemia (7) Hypertension Code(s): I10 - ESSENTIAL (PRIMARY) HYPERTENSION Qualifiers: Hypertension type: essential hypertension Qualified Code(s): I10 - Essential (primary) hypertension Assessment/Plan Lt 3rd/4th toe gangrene s/p angioplasty PAD ESRD on HD DM HTN HLD -- continue Zosyn/Clindamycin -- Podiatry/Vascular surgery to f/u for possible amputation -- continue wound care -- pt currently afebrile
--- NOTE | 2018-07-28 15:41 | PN ---
Physical Exam: SUBJECTIVE: Patient seen and examined. She has no complaints. OBJECTIVE: Vital Signs Period Temp Pulse Resp BP Sys/Jha Pulse Ox Last 24 Hr 97.7 F-98.5 F 68-82 18-18 134-161/65-101 95-95 GENERAL: The patient is awake, alert, and fully oriented, in no acute distress. LUNGS: Breath sounds equal, clear to auscultation bilaterally, no wheezes, no crackles, no accessory muscle use. HEART: Regular rate and rhythm, S1, S2 (+) 2/6 SM. ABDOMEN: Soft, nontender, nondistended, normoactive bowel sounds, no guarding, no rebound, no hepatosplenomegaly, no masses. EXTREMITIES: No edema, left foot warm, worsening gangrene of left 3rd and 4th toes extending to the dorsal surface of the foot Laboratory Results - last 24 hr 07/27/18 07/28/18 07/28/18 20:35 05:35 06:30 WBC 7.7 RBC 2.76 L Hgb 8.6 L Hct 26.3 L MCV 95.6 MCH 31.1 MCHC 32.5 RDW 17.7 H Plt Count 244 MPV 7.3 L Sodium Potassium Chloride Carbon Dioxide Anion Gap BUN Creatinine Creat Clearance w eGFR POC Glucometer 164 81 Random Glucose Calcium 07/28/18 06:30 WBC RBC Hgb Hct MCV MCH MCHC RDW Plt Count MPV Sodium 133 L Potassium 3.9 Chloride 92 L Carbon Dioxide 30 Anion Gap 12 BUN 24 H Creatinine 4.1 H Creat Clearance w eGFR 10.52 POC Glucometer Random Glucose 97 Calcium 8.8 Active Medications Generic Name Dose Route Start Last Admin Trade Name Freq PRN Reason Stop Dose Admin Acetaminophen 650 mg 07/25/18 12:47 Tylenol - PO Q4H PRN FEVER Atorvastatin Calcium 10 mg 07/25/18 22:00 07/27/18 21:23 Lipitor - PO 10 mg HS NOE Administration Clopidogrel Bisulfate 75 mg 07/26/18 10:00 07/28/18 14:13 Plavix - PO 75 mg DAILY [facility] Administration Heparin Sodium (Porcine) 5,000 unit 07/25/18 14:00 07/28/18 14:13 Heparin - SQ 5,000 unit TID NOE Administration Clindamycin Phosphate 600 mg in 50 mls @ 100 mls/hr 07/25/18 15:00 07/28/18 14:15 Cleocin 600 Mg Premix Ivpb - IVPB 100 mls/hr Q6H-IV [facility] Administration Protocol Piperacillin Sod/Tazobactam 50 mls @ 100 mls/hr 07/25/18 18:00 07/28/18 11:00 Sod 2.25 gm/ Dextrose IVPB Not Given Q8H-IV [facility] Protocol Sodium Chloride 250 mls @ 3,000 mls/hr 07/28/18 07:21 Normal Saline - IV 07/28/18 18:00 PRN PRN Hypotension during Dialysis Oxycodone HCl 5 mg 07/25/18 12:47 07/27/18 02:42 Roxicodone - PO 5 mg Q4H PRN Administration PAIN LEVEL 6-10 Polyethylene Glycol 17 gm 07/25/18 22:00 07/28/18 12:37 Miralax (For Daily Use) - PO Not Given BID NOE Sevelamer Carbonate 800 mg 07/25/18 17:30 07/28/18 14:12 Renvela - PO 800 mg TIDCM NOE Administration ASSESSMENT/PLAN: This is a 77 year old woman with a history of ESRD, type 2 DM, HTN, hyperlipidemia who presented to the ED with pain in her left foot. 1. 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 Hypertension - On no meds - Continue to monitor BP 3. ESRD with renal osteodystrophy - Continue HD, Renvela 4. Hyperlipidemia - Continue Lipitor 5. Type 2 DM - Diet controlled 6. Anemia secondary to chronic illness/CKD - Continue Procrit Visit type - Emergency Visit Emergency Visit: Yes ED Registration Date: 07/18/18 Care time: The patient presented to the Emergency Department on the above date and was hospitalized for further evaluation of their emergent condition. - New Patient This patient is new to me today: No - Critical Care Critical Care patient: No - Discharge Referral Referred to [facility] No
[2018-07-28] MEDS: ATORVASTATIN CA 10 MG TABLET (FP) PO SCH (21:32)
[2018-07-29] MEDS ORDERED: DEXTROSE 5%-WATER - 50 ML IVPB ONE ×3 (00:50→16:43)
[2018-07-29] MEDS ORDERED: PIPERACILLIN/TAZOBACTAM 2.25 GM VIAL IVPB ONE ×3 (00:50→16:43)
[2018-07-29] MEDS: PIPERACILLIN/TAZOB 2.25 GM 2.25 GM in DEXTROSE 5%-WATER - 50 ML IVPB SCH ×3 (01:05→17:07)
[2018-07-29] MEDS: CLINDAMYCIN 600MG PREMIX IVPB 600 MG/50 ML BAG IVPB SCH ×4 (02:09→21:38)
[2018-07-29] MEDS: HEPARIN NA (PORCINE) 5,000 UNITS/ML 1ML VIAL SQ SCH ×3 (06:17→21:38)
[2018-07-29 08:21] LABS: HEMATOCRIT 26.3 % (32.4-45.2); HEMOGLOBIN 8.5 GM/dL (10.7-15.3); MCH 30.8 pg (25.7-33.7); MCHC 32.2 g/dl (32.0-36.0); MEAN CELL VOLUME 95.6 fl (80-96); MEAN PLT VOLUME 7.4 fl (7.5-11.1); PLATELET COUNT 247 K/MM3 (134-434); RBC 2.75 M/mm3 (3.60-5.2); RDW 18.1 % (11.6-15.6); WHITE BLOOD COUNT 8.1 K/mm3 (4.0-10.0)
[2018-07-29] MEDS ORDERED: PT OWN MED DRAWER 7, Y5N ONE (08:28)
[2018-07-29] MEDS: SEVELAMER CARBONATE 800 MG TAB (FP) PO SCH ×3 (08:35→16:44)
[2018-07-29 08:47] LABS: ANION GAP 9 MMOL/L (8-16); BLOOD UREA NITROGEN 11 mg/dL (7-18); CALCIUM 8.7 mg/dL (8.5-10.1); CHLORIDE 97 mmol/L (98-107); CO2 31 mmol/L (21-32); CREATININE 2.9 mg/dL (0.55-1.3); GLUCOSE,RANDOM 90 mg/dL (74-106); POTASSIUM 3.8 mmol/L (3.5-5.1); SODIUM 137 mmol/L (136-145)
[2018-07-29] MEDS: POLYETHYLENE GLYCOL 3350 119 GM BTL PO SCH ×2 (09:13→21:37)
[2018-07-29] MEDS: CLOPIDOGREL BISULFATE 75 MG TABLET (FP) PO SCH (09:13)
--- NOTE | 2018-07-29 10:00 | PN ---
Progress Note (short form) - Note Progress Note: - Note Progress Note: History of Present Illness: no chest pain, palps, dizziness, lightheadedness, sob Current Medications Acetaminophen (Tylenol -) 650 mg PO Q4H PRN PRN Reason: FEVER Atorvastatin Calcium (Lipitor -) 10 mg PO HS [facility] Last Admin: 07/28/18 21:32 Dose: 10 mg Clopidogrel Bisulfate (Plavix -) 75 mg PO DAILY [facility] Last Admin: 07/29/18 09:13 Dose: 75 mg Heparin Sodium (Porcine) (Heparin -) 5,000 unit SQ TID [facility] Last Admin: 07/29/18 06:17 Dose: 5,000 unit Clindamycin Phosphate (Cleocin 600 Mg Premix Ivpb -) 600 mg in 50 mls @ 100 mls /hr IVPB Q6H-IV [facility]; Protocol Last Admin: 07/29/18 08:35 Dose: 100 mls/hr Piperacillin Sod/Tazobactam (Sod 2.25 gm/ Dextrose) 50 mls @ 100 mls/hr IVPB Q8H-IV [facility]; Protocol Last Admin: 07/29/18 09:13 Dose: 100 mls/hr Oxycodone HCl (Roxicodone -) 5 mg PO Q4H PRN PRN Reason: PAIN LEVEL 6-10 Last Admin: 07/27/18 02:42 Dose: 5 mg Polyethylene Glycol (Miralax (For Daily Use) -) 17 gm PO BID [facility] Last Admin: 07/29/18 09:13 Dose: Not Given Sevelamer Carbonate (Renvela -) 800 mg PO TIDCM [facility] Last Admin: 07/29/18 08:35 Dose: 800 mg Vital Signs Period Temp Pulse Resp BP Sys/Jha Pulse Ox Last 24 Hr 97.8 F-98.6 F 71-84 18-20 141-156/70-101 95-96 nad no jvd rrr s1s2 no mrg cta bl nl eff aaox3 no le edema abd nt nd pos bs no jaundice diaphoresis echo 07/2018 severe conc LVH, nl LVfunction, mild MR, mild AR mibi 07/2018 mod zone of inferolateral fixed defect c/w diaphragmatic attenuation, EF 87% Assessment/Plan 77 yo A female with ESRD on HD, NIDDM, HTN and HPL now admitted with gangrenous left 4th toe that will require a peripheral angiogram with possible BKA. Left toe gangrene, preop -Abx as per primary team - s/p tibial artery angioplasty -->HBO, med rx for now - no cardiac contraindication to possible TMA or BKA, plan per vascular HTN - controlled (not on meds) -Continue to follow HPL -Stable on low intensity statin ESRD -HD as per primary team cardiac garcia stable, dc tele
--- NOTE | 2018-07-29 10:35 | PN ---
Progress Note, Physician History of Present Illness: Pt remains alert, afebrile. She has no specific complaints. Denies pain in left foot. Tolerating antibiotics. - Current Medication List Current Medications: Active Medications Acetaminophen (Tylenol -) 650 mg PO Q4H PRN PRN Reason: FEVER Atorvastatin Calcium (Lipitor -) 10 mg PO HS [facility] Last Admin: 07/28/18 21:32 Dose: 10 mg Clopidogrel Bisulfate (Plavix -) 75 mg PO DAILY [facility] Last Admin: 07/29/18 09:13 Dose: 75 mg Heparin Sodium (Porcine) (Heparin -) 5,000 unit SQ TID [facility] Last Admin: 07/29/18 06:17 Dose: 5,000 unit Clindamycin Phosphate (Cleocin 600 Mg Premix Ivpb -) 600 mg in 50 mls @ 100 mls /hr IVPB Q6H-IV [facility]; Protocol Last Admin: 07/29/18 08:35 Dose: 100 mls/hr Piperacillin Sod/Tazobactam (Sod 2.25 gm/ Dextrose) 50 mls @ 100 mls/hr IVPB Q8H-IV [facility]; Protocol Last Admin: 07/29/18 09:13 Dose: 100 mls/hr Oxycodone HCl (Roxicodone -) 5 mg PO Q4H PRN PRN Reason: PAIN LEVEL 6-10 Last Admin: 07/27/18 02:42 Dose: 5 mg Polyethylene Glycol (Miralax (For Daily Use) -) 17 gm PO BID [facility] Last Admin: 07/29/18 09:13 Dose: Not Given Sevelamer Carbonate (Renvela -) 800 mg PO TIDCM [facility] Last Admin: 07/29/18 08:35 Dose: 800 mg - Objective Vital Signs: Vital Signs Temperature 97.8 F 07/29/18 05:38 Pulse Rate 81 07/29/18 05:38 Respiratory Rate 18 07/29/18 09:00 Blood Pressure 156/77 07/29/18 05:38 O2 Sat by Pulse Oximetry (%) 96 07/29/18 09:00 Constitutional: Yes: No Distress, Calm Cardiovascular: Yes: Regular Rate and Rhythm Respiratory: Yes: Regular Gastrointestinal: Yes: Normal Bowel Sounds, Soft Wound/Incision: Yes: Dressing Dry and Intact (Lt foot , gangrenous toe) Neurological: Yes: Alert Labs: CBC, BMP 07/29/18 07:50 07/29/18 07:50 INR, PTT INR 1.19 (0.83-1.09) H 07/24/18 21:30 Problem List - Problems (1) Gas gangrene of foot Code(s): A48.0 - GAS GANGRENE (2) AVF (arteriovenous fistula) Code(s): I77.0 - ARTERIOVENOUS FISTULA, ACQUIRED (3) Anemia Code(s): D64.9 - ANEMIA, UNSPECIFIED Qualifiers: Anemia type: due to chronic kidney disease Chronic kidney disease stage: on chronic dialysis Qualified Code(s): N18.6 - End stage renal disease; D63.1 - Anemia in chronic kidney disease; Z99.2 - Dependence on renal dialysis (4) Diabetes Code(s): E11.9 - TYPE 2 DIABETES MELLITUS WITHOUT COMPLICATIONS Qualifiers: Diabetes mellitus type: type 2 Diabetes mellitus alf insulin use: without termite renewal inspector use Diabetes mellitus complication status: with kidney complications Diabetes mellitus complication detail: with chronic kidney disease Chronic kidney disease stage: on chronic dialysis Qualified Code(s) : E11.22 - Type 2 diabetes mellitus with diabetic chronic kidney disease; N18.6 - End stage renal disease; Z99.2 - Dependence on renal dialysis (5) ESRD (end stage renal disease) Code(s): N18.6 - END STAGE RENAL DISEASE (6) Hyperlipidemia Code(s): E78.5 - HYPERLIPIDEMIA, UNSPECIFIED Qualifiers: Hyperlipidemia type: pure hypercholesterolemia Qualified Code(s): E78.00 - Pure hypercholesterolemia, unspecified; E78.0 - Pure hypercholesterolemia (7) Hypertension Code(s): I10 - ESSENTIAL (PRIMARY) HYPERTENSION Qualifiers: Hypertension type: essential hypertension Qualified Code(s): I10 - Essential (primary) hypertension Assessment/Plan Lt toe gangrene s/p angioplasty PAD ESRD on HD DM HTN HLD -- continue current antibiotics -- Podiatry following, Vascular evaluation for possible TMA vs BKA -- continue wound care -- pt currently appears stable
--- NOTE | 2018-07-29 17:30 | PN ---
Physical Exam: SUBJECTIVE: Patient seen and examined at bed side this morning. No complaints. Denies chest pain, sob, cough, palpitation, abdominal pain, nausea or vomiting. BM today. No acute overnight events. OBJECTIVE: Vital Signs Period Temp Pulse Resp BP Sys/Jha Pulse Ox Last 24 Hr 97.8 F-98.6 F 67-84 18-20 144-156/70-81 95-96 GENERAL: Elderly female, is awake, alert, and fully oriented, in no acute distress. HEAD: Normal with no signs of trauma. EYES: EOM intact , pallor +, No icterus. ENT: Ears normal, moist mucous membranes. NECK: Supple. LUNGS: B.L Breath sounds equal, clear to auscultation bilaterally, no wheezes, no crackles, no accessory muscle use. HEART: Regular rate and rhythm, S1, S2 without murmur, rub or gallop. ABDOMEN: Soft, nontender, no organomegaly, BS + UPPER EXTREMITIES: Left upper forearm-fistula functioning, 2+ pulses, warm, well -perfused, no edema. LOWER EXTREMITIES: LEFT: Dressing had just been placed , pt refusing to examine. NEUROLOGICAL: No facial droop. Normal speech, gait not observed. PSYCH: Normal mood, normal affect. SKIN: Warm, dry, normal turgor, no rashes or lesions noted Laboratory Results - last 24 hr 07/28/18 07/29/18 07/29/18 21:35 05:37 07:50 WBC 8.1 RBC 2.75 L Hgb 8.5 L Hct 26.3 L MCV 95.6 MCH 30.8 MCHC 32.2 RDW 18.1 H Plt Count 247 MPV 7.4 L Sodium Potassium Chloride Carbon Dioxide Anion Gap BUN Creatinine Creat Clearance w eGFR POC Glucometer 146 73 Random Glucose Calcium 07/29/18 07/29/18 07/29/18 07:50 11:26 16:14 WBC RBC Hgb Hct MCV MCH MCHC RDW Plt Count MPV Sodium 137 Potassium 3.8 Chloride 97 L Carbon Dioxide 31 Anion Gap 9 BUN 11 Creatinine 2.9 H Creat Clearance w eGFR 15.69 POC Glucometer 128 149 Random Glucose 90 Calcium 8.7 Active Medications Generic Name Dose Route Start Last Admin Trade Name Freq PRN Reason Stop Dose Admin Acetaminophen 650 mg 07/25/18 12:47 Tylenol - PO Q4H PRN FEVER Atorvastatin Calcium 10 mg 07/25/18 22:00 07/28/18 21:32 Lipitor - PO 10 mg HS NOE Administration Clopidogrel Bisulfate 75 mg 07/26/18 10:00 07/29/18 09:13 Plavix - PO 75 mg DAILY NOE Administration Heparin Sodium (Porcine) 5,000 unit 07/25/18 14:00 07/29/18 14:01 Heparin - SQ 5,000 unit TID NOE Administration Clindamycin Phosphate 600 mg in 50 mls @ 100 mls/hr 07/25/18 15:00 07/29/18 14:09 Cleocin 600 Mg Premix Ivpb - IVPB 100 mls/hr Q6H-IV NOE Administration Protocol Piperacillin Sod/Tazobactam 50 mls @ 100 mls/hr 07/25/18 18:00 07/29/18 17:07 Sod 2.25 gm/ Dextrose IVPB 100 mls/hr Q8H-IV NOE Administration Protocol Oxycodone HCl 5 mg 07/25/18 12:47 07/27/18 02:42 Roxicodone - PO 5 mg Q4H PRN Administration PAIN LEVEL 6-10 Polyethylene Glycol 17 gm 07/25/18 22:00 07/29/18 09:13 Miralax (For Daily Use) - PO Not Given BID [facility] Sevelamer Carbonate 800 mg 07/25/18 17:30 07/29/18 16:44 Renvela - PO 800 mg TIDCM NOE Administration ASSESSMENT/PLAN: Lower ext CT 07/18/18 shows Air/Gas accumulation is seen within the soft tissues surrounding the fourth toe consistent with gas forming infection Stress test done 07/23: Overall negative pharmacologic stress test. EF 87 % ASSESSMENT/PLAN: Patient is a 77 year old female PMHx of ESRD (T,Th,S), DM, HTN, HLD, admitted with Left 4th toe wound and pain for a month. 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 Heparin sq started post procedure. Planning for amputation. Medically stable from cardiac standpoint as per cardiology. # Normocytic anemia likely from ESRD # Leukocytosis resolved # Hypertension-controlled Diet controlled # ESRD (TTS) Creatinine 2.9. HD done yesterday. Continue Sevelamer 800 mg PO TID Avoid nephrotoxic drugs Fluid restriction 1.2L/day # Hyperlipidemia Continue Statin 10mg # FEN Not on IV fluids, can tolerate PO. Electrolytes WNl Sodium/Diabetic diet # Prophylaxis For DVT: On Heparin sq 5000 TID For GI: Not indicated # Code Status: Full Code # Dispo: Admitted in Tele- no acute events since admission. Will downgrade to Med-Surg. Illness, Investigation and Plan of care explained to the patient. She verbalized understanding. Case discussed with Dr. Moon. Problem List - Problems (1) Chronic kidney disease, stage 5, kidney failure Code(s): N18.5 - CHRONIC KIDNEY DISEASE, STAGE 5 (2) DVT prophylaxis Code(s): MMH8020 - (3) Foot ulcer Code(s): L97.509 - NON-PRESSURE CHRONIC ULCER OTH PRT UNSP FOOT W UNSP SEVERITY Qualifiers: Laterality: left Non-pressure ulcer stage: unspecified non-pressure ulcer stage Qualified Code(s): L97.529 - Non-pressure chronic ulcer of other part of left foot with unspecified severity (4) Gas gangrene of foot Code(s): A48.0 - GAS GANGRENE (5) Hypokalemia Code(s): E87.6 - HYPOKALEMIA (6) ESRD (end stage renal disease) Code(s): N18.6 - END STAGE RENAL DISEASE Visit type - Emergency Visit Emergency Visit: Yes ED Registration Date: 07/18/18 Care time: The patient presented to the Emergency Department on the above date and was hospitalized for further evaluation of their emergent condition. - New Patient This patient is new to me today: No - Critical Care Critical Care patient: No - Discharge Referral Referred to [facility] Med P.C.: No
--- NOTE | 2018-07-29 18:21 | PN ---
Teaching Attending Note Name of Resident: Pati Salazar ATTENDING PHYSICIAN STATEMENT I saw and evaluated the patient. I reviewed the resident's note and discussed the case with the resident. I agree with the resident's findings and plan as documented. SUBJECTIVE: Patient has no complaints. OBJECTIVE: Vital Signs Period Temp Pulse Resp BP Sys/Jha Pulse Ox Last 24 Hr 97.8 F-98.4 F 67-84 18-20 144-156/70-81 95-96 HEART: S1S2, RRR, (+) 2/6 SM LUNGS: Clear ABDOMEN: Soft, non-tender, non-distended, normal BS EXTREMITIES: Trace edema of LLE Laboratory Results - last 24 hr 07/28/18 07/29/18 07/29/18 21:35 05:37 07:50 WBC 8.1 RBC 2.75 L Hgb 8.5 L Hct 26.3 L MCV 95.6 MCH 30.8 MCHC 32.2 RDW 18.1 H Plt Count 247 MPV 7.4 L Sodium Potassium Chloride Carbon Dioxide Anion Gap BUN Creatinine Creat Clearance w eGFR POC Glucometer 146 73 Random Glucose Calcium 07/29/18 07/29/18 07/29/18 07:50 11:26 16:14 WBC RBC Hgb Hct MCV MCH MCHC RDW Plt Count MPV Sodium 137 Potassium 3.8 Chloride 97 L Carbon Dioxide 31 Anion Gap 9 BUN 11 Creatinine 2.9 H Creat Clearance w eGFR 15.69 POC Glucometer 128 149 Random Glucose 90 Calcium 8.7 Current Medications Generic Name Dose Route Start Last Admin Trade Name Freq PRN Reason Stop Dose Admin Acetaminophen 650 mg 07/25/18 12:47 Tylenol - PO Q4H PRN FEVER Atorvastatin Calcium 10 mg 07/25/18 22:00 07/28/18 21:32 Lipitor - PO 10 mg HS NOE Administration Clopidogrel Bisulfate 75 mg 07/26/18 10:00 07/29/18 09:13 Plavix - PO 75 mg DAILY NOE Administration Heparin Sodium (Porcine) 5,000 unit 07/25/18 14:00 07/29/18 14:01 Heparin - SQ 5,000 unit TID NOE Administration Clindamycin Phosphate 600 mg in 50 mls @ 100 mls/hr 07/25/18 15:00 07/29/18 14:09 Cleocin 600 Mg Premix Ivpb - IVPB 100 mls/hr Q6H-IV NOE Administration Protocol Piperacillin Sod/Tazobactam 50 mls @ 100 mls/hr 07/25/18 18:00 07/29/18 17:07 Sod 2.25 gm/ Dextrose IVPB 100 mls/hr Q8H-IV NOE Administration Protocol Oxycodone HCl 5 mg 07/25/18 12:47 07/27/18 02:42 Roxicodone - PO 5 mg Q4H PRN Administration PAIN LEVEL 6-10 Polyethylene Glycol 17 gm 07/25/18 22:00 07/29/18 09:13 Miralax (For Daily Use) - PO Not Given BID NOE Sevelamer Carbonate 800 mg 07/25/18 17:30 07/29/18 16:44 Renvela - PO 800 mg TIDCM NOE Administration ASSESSMENT AND PLAN: This is a 77 year old woman with a history of ESRD, type 2 DM, HTN, hyperlipidemia who presented to the ED with pain in her left foot. 1. 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 Hypertension - On no meds - Continue to monitor BP 3. ESRD with renal osteodystrophy - Continue HD, Renvela 4. Hyperlipidemia - Continue Lipitor 5. Type 2 DM - Diet controlled 6. Anemia secondary to chronic illness/CKD - Continue Procrit
[2018-07-29] MEDS ORDERED: SODIUM CHLORIDE 250 ML IV PRN (18:45)
--- NOTE | 2018-07-29 18:57 | PN ---
Progress Note (short form) - Note Progress Note: covering dr kaufman Problems 77 year old AA woman with hx of ESRD on HD, DM, hypertension presented with worsening infection of her foot #Gangrene of LE #suspected arterial insufficiency of LE #ESRD on HD #DM #Anemia #Renal Osteodystrophy Current Medications Acetaminophen (Tylenol -) 650 mg PO Q4H PRN PRN Reason: FEVER Atorvastatin Calcium (Lipitor -) 10 mg PO HS NOE Last Admin: 07/28/18 21:32 Dose: 10 mg Clopidogrel Bisulfate (Plavix -) 75 mg PO DAILY NOE Last Admin: 07/29/18 09:13 Dose: 75 mg Heparin Sodium (Porcine) (Heparin -) 5,000 unit SQ TID NOE Last Admin: 07/29/18 14:01 Dose: 5,000 unit Clindamycin Phosphate (Cleocin 600 Mg Premix Ivpb -) 600 mg in 50 mls @ 100 mls /hr IVPB Q6H-IV NOE; Protocol Last Admin: 07/29/18 14:09 Dose: 100 mls/hr Piperacillin Sod/Tazobactam (Sod 2.25 gm/ Dextrose) 50 mls @ 100 mls/hr IVPB Q8H-IV NOE; Protocol Last Admin: 07/29/18 17:07 Dose: 100 mls/hr Sodium Chloride (Normal Saline -) 250 mls @ 3,000 mls/hr IV PRN PRN PRN Reason: Hypotension during Dialysis Stop: 07/30/18 18:45 Oxycodone HCl (Roxicodone -) 5 mg PO Q4H PRN PRN Reason: PAIN LEVEL 6-10 Last Admin: 07/27/18 02:42 Dose: 5 mg Polyethylene Glycol (Miralax (For Daily Use) -) 17 gm PO BID NOE Last Admin: 07/29/18 09:13 Dose: Not Given Sevelamer Carbonate (Renvela -) 800 mg PO TIDCM [facility] Last Admin: 07/29/18 16:44 Dose: 800 mg CBC, BMP 07/29/18 07:50 07/29/18 07:50 CBC, BMP 07/28/18 06:30 07/28/18 06:30 s/p uneventful hd yesterday next hd tomorrow monday because of holiday schedule
[2018-07-29] MEDS: ATORVASTATIN CA 10 MG TABLET (FP) PO SCH (21:38)
--- NOTE | 2018-07-29 22:47 | PN ---
Progress Note (short form) - Note Progress Note: Patient seen in dialysis bed. No distress. vss, Tmax 98.7 +gangarene progressing and demarcating, +mal ododor, +pvd, -drainage, +dry, extending to mid foot over 4th metatarsal, wbc=8.1 PVD Gangarene Patient needs TMA possibly BKA left. will discuss with vascular. will follow.
[2018-07-30] MEDS ORDERED: PIPERACILLIN/TAZOBACTAM 2.25 GM VIAL IVPB ONE ×3 (01:31→18:03)
[2018-07-30] MEDS ORDERED: DEXTROSE 5%-WATER - 50 ML IVPB ONE ×3 (01:31→18:03)
[2018-07-30] MEDS: PIPERACILLIN/TAZOB 2.25 GM 2.25 GM in DEXTROSE 5%-WATER - 50 ML IVPB SCH ×3 (02:00→18:04)
[2018-07-30] MEDS: CLINDAMYCIN 600MG PREMIX IVPB 600 MG/50 ML BAG IVPB SCH ×4 (03:10→20:26)
[2018-07-30] MEDS: HEPARIN NA (PORCINE) 5,000 UNITS/ML 1ML VIAL SQ SCH ×3 (06:06→21:04)
[2018-07-30] MEDS: SEVELAMER CARBONATE 800 MG TAB (FP) PO SCH ×3 (08:05→18:04)
--- NOTE | 2018-07-30 10:55 | PN ---
Progress Note (short form) - Note Progress Note: History of Present Illness: no chest pain, palps, dizziness, lightheadedness, sob Current Medications Generic Name Dose Route Start Last Admin Trade Name Megaq PRN Reason Stop Dose Admin Acetaminophen 650 mg 07/25/18 12:47 Tylenol - PO Q4H PRN FEVER Atorvastatin Calcium 10 mg 07/25/18 22:00 07/29/18 21:38 Lipitor - PO 10 mg HS NOE Administration Clopidogrel Bisulfate 75 mg 07/26/18 10:00 07/29/18 09:13 Plavix - PO 75 mg DAILY NOE Administration Heparin Sodium (Porcine) 5,000 unit 07/25/18 14:00 07/30/18 06:06 Heparin - SQ 5,000 unit TID NOE Administration Clindamycin Phosphate 600 mg in 50 mls @ 100 mls/hr 07/25/18 15:00 07/30/18 03:10 Cleocin 600 Mg Premix Ivpb - IVPB 100 mls/hr Q6H-IV NOE Administration Protocol Piperacillin Sod/Tazobactam 50 mls @ 100 mls/hr 07/25/18 18:00 07/30/18 02:00 Sod 2.25 gm/ Dextrose IVPB 100 mls/hr Q8H-IV NOE Administration Protocol Sodium Chloride 250 mls @ 3,000 mls/hr 07/29/18 18:45 Normal Saline - IV 07/30/18 18:45 PRN PRN Hypotension during Dialysis Oxycodone HCl 5 mg 07/25/18 12:47 07/27/18 02:42 Roxicodone - PO 5 mg Q4H PRN Administration PAIN LEVEL 6-10 Polyethylene Glycol 17 gm 07/25/18 22:00 07/29/18 21:37 Miralax (For Daily Use) - PO Not Given BID NOE Sevelamer Carbonate 800 mg 07/25/18 17:30 07/30/18 08:05 Renvela - PO 800 mg TIDCM NOE Administration Vital Signs Period Temp Pulse Resp BP Sys/Jha Pulse Ox Last 24 Hr 97.9 F-98.7 F 77-84 16-18 146-160/75-84 98-98 nad no jvd rrr s1s2 no mrg cta bl nl eff aaox3 no le edema abd nt nd pos bs no jaundice diaphoresis CBC, BMP 07/29/18 07:50 07/29/18 07:50 echo 07/2018 severe conc LVH, nl LVfunction, mild MR, mild AR mibi 07/2018 mod zone of inferolateral fixed defect c/w diaphragmatic attenuation, EF 87% Assessment/Plan 77 yo A female with ESRD on HD, NIDDM, HTN and HPL now admitted with gangrenous left 4th toe that will require a peripheral angiogram with possible BKA. Left toe gangrene, preop -Abx as per primary team - s/p tibial artery angioplasty -->HBO, med rx for now - no cardiac contraindication to possible TMA or BKA, plan per vascular HTN - controlled (not on meds) -Continue to follow HPL -Stable on low intensity statin ESRD -HD as per primary team
--- NOTE | 2018-07-30 10:58 | PN ---
Progress Note (short form) - Note Progress Note: Patient seen in dialysis bed. No distress. vss, Tmax 98.2 +gangarene progressing and demarcating, +mal ododor, +pvd, -drainage, +dry, extending to mid foot over 4th metatarsal, wbc=8.1 PVD Gangarene Patient needs TMA possibly BKA left. will discuss with vascular. Spoke to her daughter Mariia Crain after texting her other daughter to call me. [place] and could not talk. Mariia called me in office and we discussed options. Explained that TMA may not work. Gave her option of TMA vs BKA. They will decide by Monday 8am. They have my cell number if any questions. INR and xray ordered. Patient on schedule for 9:30am Monday. Please optimize for OR and clear. NPO after Midnight tomorrow.
[2018-07-30] MEDS: POLYETHYLENE GLYCOL 3350 119 GM BTL PO SCH ×2 (13:04→21:05)
[2018-07-30] MEDS: CLOPIDOGREL BISULFATE 75 MG TABLET (FP) PO SCH (13:04)
--- NOTE | 2018-07-30 15:43 | PN ---
Progress Note, Physician History of Present Illness: patient stable no new issues plan for surgery - Current Medication List Current Medications: Active Medications Acetaminophen (Tylenol -) 650 mg PO Q4H PRN PRN Reason: FEVER Atorvastatin Calcium (Lipitor -) 10 mg PO HS [facility] Last Admin: 07/29/18 21:38 Dose: 10 mg Clopidogrel Bisulfate (Plavix -) 75 mg PO DAILY [facility] Last Admin: 07/30/18 13:04 Dose: 75 mg Heparin Sodium (Porcine) (Heparin -) 5,000 unit SQ TID [facility] Last Admin: 07/30/18 14:17 Dose: 5,000 unit Clindamycin Phosphate (Cleocin 600 Mg Premix Ivpb -) 600 mg in 50 mls @ 100 mls /hr IVPB Q6H-IV [facility]; Protocol Last Admin: 07/30/18 15:26 Dose: Not Given Piperacillin Sod/Tazobactam (Sod 2.25 gm/ Dextrose) 50 mls @ 100 mls/hr IVPB Q8H-IV [facility]; Protocol Last Admin: 07/30/18 13:17 Dose: 100 mls/hr Sodium Chloride (Normal Saline -) 250 mls @ 3,000 mls/hr IV PRN PRN PRN Reason: Hypotension during Dialysis Stop: 07/30/18 18:45 Oxycodone HCl (Roxicodone -) 5 mg PO Q4H PRN PRN Reason: PAIN LEVEL 6-10 Last Admin: 07/27/18 02:42 Dose: 5 mg Polyethylene Glycol (Miralax (For Daily Use) -) 17 gm PO BID [facility] Last Admin: 07/30/18 13:04 Dose: Not Given Sevelamer Carbonate (Renvela -) 800 mg PO TIDCM [facility] Last Admin: 07/30/18 12:25 Dose: 800 mg - Objective Vital Signs: Vital Signs Temperature 98.2 F 07/30/18 14:00 Pulse Rate 87 07/30/18 14:00 Respiratory Rate 18 07/30/18 14:00 Blood Pressure 110/57 L 07/30/18 14:00 O2 Sat by Pulse Oximetry (%) 98 07/30/18 09:26 Constitutional: Yes: No Distress, Calm Cardiovascular: Yes: Regular Rate and Rhythm Respiratory: Yes: Regular, CTA Bilaterally Gastrointestinal: Yes: Normal Bowel Sounds, Soft Musculoskeletal: Yes: WNL Extremities: Yes: Other Neurological: Yes: Alert, Oriented Psychiatric: Yes: Alert, Oriented Labs: CBC, BMP 07/29/18 07:50 07/29/18 07:50 INR, PTT INR 1.19 (0.83-1.09) H 07/24/18 21:30 Assessment/Plan 77 yo Female with PMH of ESRD (HD on T,Th,S), NIDDM, HTN, HLD, admitted with Left 4th toe wound and pain for 1 month. Necrotic left 4th Toe ESRD on HD NIDDM HTN HLD plan continue abx plan for surgery
--- NOTE | 2018-07-30 17:31 | PN ---
Progress Note (short form) - Note Progress Note: covering dr kaufman Problems 77 year old AA woman with hx of ESRD on HD, DM, hypertension presented with worsening infection of her foot #Gangrene of LE #suspected arterial insufficiency of LE #ESRD on HD #DM #Anemia #Renal Osteodystrophy Current Medications Acetaminophen (Tylenol -) 650 mg PO Q4H PRN PRN Reason: FEVER Atorvastatin Calcium (Lipitor -) 10 mg PO HS NOE Last Admin: 07/29/18 21:38 Dose: 10 mg Clopidogrel Bisulfate (Plavix -) 75 mg PO DAILY NOE Last Admin: 07/30/18 13:04 Dose: 75 mg Heparin Sodium (Porcine) (Heparin -) 5,000 unit SQ TID NOE Last Admin: 07/30/18 14:17 Dose: 5,000 unit Clindamycin Phosphate (Cleocin 600 Mg Premix Ivpb -) 600 mg in 50 mls @ 100 mls /hr IVPB Q6H-IV NOE; Protocol Last Admin: 07/30/18 15:26 Dose: Not Given Piperacillin Sod/Tazobactam (Sod 2.25 gm/ Dextrose) 50 mls @ 100 mls/hr IVPB Q8H-IV NOE; Protocol Last Admin: 07/30/18 13:17 Dose: 100 mls/hr Sodium Chloride (Normal Saline -) 250 mls @ 3,000 mls/hr IV PRN PRN PRN Reason: Hypotension during Dialysis Stop: 07/30/18 18:45 Oxycodone HCl (Roxicodone -) 5 mg PO Q4H PRN PRN Reason: PAIN LEVEL 6-10 Last Admin: 07/27/18 02:42 Dose: 5 mg Polyethylene Glycol (Miralax (For Daily Use) -) 17 gm PO BID NOE Last Admin: 07/30/18 13:04 Dose: Not Given Sevelamer Carbonate (Renvela -) 800 mg PO TIDCM [facility] Last Admin: 07/30/18 12:25 Dose: 800 mg Last Vital Signs Temp Pulse Resp BP Pulse Ox 98.2 F 87 18 110/57 L 98 07/30/18 14:00 07/30/18 14:00 07/30/18 14:00 07/30/18 14:00 07/30/18 09:26 Lungs clear Heart reg Abd soft ext no edema CBC, BMP 07/29/18 07:50 07/29/18 07:50 IMP-ESRD PAD uneventful hd today next HD monday
--- NOTE | 2018-07-30 18:20 | PN ---
Physical Exam: SUBJECTIVE: Patient seen and examined. She has no complaints. OBJECTIVE: Vital Signs Period Temp Pulse Resp BP Sys/Jha Pulse Ox Last 24 Hr 97.4 F-98.7 F 62-87 16-18 110-160/47-84 98-98 GENERAL: The patient is awake, alert, and fully oriented, in no acute distress. LUNGS: Breath sounds equal, clear to auscultation bilaterally, no wheezes, no crackles, no accessory muscle use. HEART: Regular rate and rhythm, S1, S2 (+) 2/6 SM. ABDOMEN: Soft, nontender, nondistended, normoactive bowel sounds, no guarding, no rebound, no hepatosplenomegaly, no masses. EXTREMITIES: No edema, left foot warm, gangrene of left 3rd and 4th toes extending to the dorsal surface of the foot over 4th metatarsal Laboratory Results - last 24 hr 07/29/18 07/30/18 07/30/18 21:22 05:09 12:38 POC Glucometer 100 79 116 07/30/18 16:49 POC Glucometer 143 Active Medications Generic Name Dose Route Start Last Admin Trade Name Freq PRN Reason Stop Dose Admin Acetaminophen 650 mg 07/25/18 12:47 Tylenol - PO Q4H PRN FEVER Atorvastatin Calcium 10 mg 07/25/18 22:00 07/29/18 21:38 Lipitor - PO 10 mg HS NOE Administration Clopidogrel Bisulfate 75 mg 07/26/18 10:00 07/30/18 13:04 Plavix - PO 75 mg DAILY NOE Administration Heparin Sodium (Porcine) 5,000 unit 07/25/18 14:00 07/30/18 14:17 Heparin - SQ 5,000 unit TID NOE Administration Clindamycin Phosphate 600 mg in 50 mls @ 100 mls/hr 07/25/18 15:00 07/30/18 15:26 Cleocin 600 Mg Premix Ivpb - IVPB Not Given Q6H-IV NOE Protocol Piperacillin Sod/Tazobactam 50 mls @ 100 mls/hr 07/25/18 18:00 07/30/18 18:04 Sod 2.25 gm/ Dextrose IVPB 100 mls/hr Q8H-IV NOE Administration Protocol Sodium Chloride 250 mls @ 3,000 mls/hr 07/29/18 18:45 Normal Saline - IV 07/30/18 18:45 PRN PRN Hypotension during Dialysis Oxycodone HCl 5 mg 07/25/18 12:47 07/27/18 02:42 Roxicodone - PO 5 mg Q4H PRN Administration PAIN LEVEL 6-10 Polyethylene Glycol 17 gm 07/25/18 22:00 07/30/18 13:04 Miralax (For Daily Use) - PO Not Given BID NOE Sevelamer Carbonate 800 mg 07/25/18 17:30 07/30/18 18:04 Renvela - PO 800 mg TIDCM NOE Administration ASSESSMENT/PLAN: ASSESSMENT/PLAN: This is a 77 year old woman with a history of ESRD, type 2 DM, HTN, hyperlipidemia who presented to the ED with pain in her left foot. 1. 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 Hypertension - On no meds - Continue to monitor BP 3. ESRD with renal osteodystrophy - Continue HD, Renvela 4. Hyperlipidemia - Continue Lipitor 5. Type 2 DM - Diet controlled 6. Anemia secondary to chronic illness/CKD - Continue Procrit Visit type - Emergency Visit Emergency Visit: Yes ED Registration Date: 07/18/18 Care time: The patient presented to the Emergency Department on the above date and was hospitalized for further evaluation of their emergent condition. - New Patient This patient is new to me today: No - Critical Care Critical Care patient: No - Discharge Referral Referred to [facility] Med P.C.: No
[2018-07-30] MEDS: ATORVASTATIN CA 10 MG TABLET (FP) PO SCH (21:04)
[2018-07-31] MEDS ORDERED: PIPERACILLIN/TAZOBACTAM 2.25 GM VIAL IVPB ONE ×3 (01:13→17:08)
[2018-07-31] MEDS ORDERED: DEXTROSE 5%-WATER - 50 ML IVPB ONE ×3 (01:13→17:08)
[2018-07-31] MEDS: PIPERACILLIN/TAZOB 2.25 GM 2.25 GM in DEXTROSE 5%-WATER - 50 ML IVPB SCH ×3 (01:35→17:10)
[2018-07-31] MEDS: CLINDAMYCIN 600MG PREMIX IVPB 600 MG/50 ML BAG IVPB SCH ×4 (02:12→20:46)
[2018-07-31] MEDS: HEPARIN NA (PORCINE) 5,000 UNITS/ML 1ML VIAL SQ SCH ×3 (05:37→21:01)
[2018-07-31 08:11] LABS: HEMATOCRIT 27.6 % (32.4-45.2); HEMOGLOBIN 9.3 GM/dL (10.7-15.3); MCH 32.5 pg (25.7-33.7); MCHC 33.8 g/dl (32.0-36.0); MEAN CELL VOLUME 96.2 fl (80-96); MEAN PLT VOLUME 7.4 fl (7.5-11.1); PLATELET COUNT 298 K/MM3 (134-434); RBC 2.87 M/mm3 (3.60-5.2); RDW 18.1 % (11.6-15.6)
[2018-07-31] MEDS: SEVELAMER CARBONATE 800 MG TAB (FP) PO SCH ×3 (08:28→17:10)
[2018-07-31 08:38] LABS: INR 1.2 (0.83-1.09); PROTHROMBIN TIME (PATIENT) 14.2 SEC (9.7-13.0)
[2018-07-31 08:43] LABS: ANION GAP 12 MMOL/L (8-16); BLOOD UREA NITROGEN 13 mg/dL (7-18); CALCIUM 8.5 mg/dL (8.5-10.1); CHLORIDE 99 mmol/L (98-107); CO2 30 mmol/L (21-32); CREATININE 2.8 mg/dL (0.55-1.3); GLUCOSE,RANDOM 97 mg/dL (74-106); POTASSIUM 3.7 mmol/L (3.5-5.1); SODIUM 141 mmol/L (136-145)
--- NOTE | 2018-07-31 09:24 | PN ---
Physical Exam: SUBJECTIVE: Patient seen and examined at bed side this morning. No complaints. Eating breakfast. Denies chest pain, sob, cough, palpitation, abdominal pain, nausea or vomiting. BM today. This morning had an episode of hypertension (on two seperate readings BP was 180 /90 mmHg and 185/99 mmHg with HR of 55-60 bpm, completely asymptomatic. Patient was restarted on Home Amlodipine and dose increased to 10mg Daily. OBJECTIVE: Vital Signs Period Temp Pulse Resp BP Sys/Jha Pulse Ox Last 24 Hr 97.4 F-98.2 F 62-87 18-20 110-190/57-97 96-98 GENERAL: Elderly female, is awake, alert, and fully oriented, in no acute distress. HEAD: Normal with no signs of trauma. EYES: EOM intact , pallor +, No icterus. ENT: Ears normal, moist mucous membranes. NECK: Supple. LUNGS: B.L Breath sounds equal, clear to auscultation bilaterally, no wheezes, no crackles, no accessory muscle use. HEART: Regular rate and rhythm, S1, S2 without murmur, rub or gallop. ABDOMEN: Soft, nontender, no organomegaly, BS + UPPER EXTREMITIES: Left upper forearm-fistula functioning, 2+ pulses, warm, well -perfused, no edema. LOWER EXTREMITIES: LEFT: Gangrene of L second and third digit, blackish discoloration till the mid foot. NEUROLOGICAL: No facial droop. Normal speech, gait not observed. PSYCH: Normal mood, normal affect. SKIN: Warm, dry, normal turgor, no rashes or lesions noted Laboratory Results - last 24 hr 07/30/18 07/30/18 07/31/18 12:38 16:49 05:31 WBC RBC Hgb Hct MCV MCH MCHC RDW Plt Count MPV PT with INR INR Sodium Potassium Chloride Carbon Dioxide Anion Gap BUN Creatinine Creat Clearance w eGFR POC Glucometer 116 143 73 Random Glucose Calcium 07/31/18 07/31/18 07/31/18 07:50 07:50 07:50 WBC 7.0 RBC 2.87 L Hgb 9.3 L Hct 27.6 L MCV 96.2 H MCH 32.5 MCHC 33.8 RDW 18.1 H Plt Count 298 D MPV 7.4 L PT with INR 14.20 H INR 1.20 H Sodium 141 Potassium 3.7 Chloride 99 Carbon Dioxide 30 Anion Gap 12 BUN 13 Creatinine 2.8 H Creat Clearance w eGFR 16.34 POC Glucometer Random Glucose 97 Calcium 8.5 Active Medications Generic Name Dose Route Start Last Admin Trade Name Freq PRN Reason Stop Dose Admin Acetaminophen 650 mg 07/25/18 12:47 Tylenol - PO Q4H PRN FEVER Amlodipine Besylate 10 mg 07/31/18 10:00 Norvasc - PO DAILY NOE Atorvastatin Calcium 10 mg 07/25/18 22:00 07/30/18 21:04 Lipitor - PO 10 mg HS NOE Administration Clopidogrel Bisulfate 75 mg 07/26/18 10:00 07/30/18 13:04 Plavix - PO 75 mg DAILY NOE Administration Heparin Sodium (Porcine) 5,000 unit 07/25/18 14:00 07/31/18 05:37 Heparin - SQ 5,000 unit TID NOE Administration Clindamycin Phosphate 600 mg in 50 mls @ 100 mls/hr 07/25/18 15:00 07/31/18 08:28 Cleocin 600 Mg Premix Ivpb - IVPB 100 mls/hr Q6H-IV NOE Administration Protocol Piperacillin Sod/Tazobactam 50 mls @ 100 mls/hr 07/25/18 18:00 07/31/18 01:35 Sod 2.25 gm/ Dextrose IVPB 100 mls/hr Q8H-IV NOE Administration Protocol Sodium Chloride 250 mls @ 3,000 mls/hr 07/29/18 18:45 Normal Saline - IV 07/30/18 18:45 PRN PRN Hypotension during Dialysis Oxycodone HCl 5 mg 07/25/18 12:47 07/27/18 02:42 Roxicodone - PO 5 mg Q4H PRN Administration PAIN LEVEL 6-10 Polyethylene Glycol 17 gm 07/25/18 22:00 07/30/18 21:05 Miralax (For Daily Use) - PO Not Given BID [facility] Sevelamer Carbonate 800 mg 07/25/18 17:30 07/31/18 08:28 Renvela - PO 800 mg TIDCM NOE Administration ASSESSMENT/PLAN: Lower ext CT 07/18/18 shows Air/Gas accumulation is seen within the soft tissues surrounding the fourth toe consistent with gas forming infection Stress test done 07/23: Overall negative pharmacologic stress test. EF 87 % Patient is a 77 year old female PMHx of ESRD (T,Th,S), DM, HTN, HLD, admitted with Left 4th toe wound and pain for a month. # Hypertension Patient was taking Amlodipine and Labetolol at home and currently was being monitored off antihypertensives as her BP was in normal range. This morning had 2 episodes of high BP on two separate readings. Added Amlodipine 10mg PO daily (used to take 5mg at home), will continue to monitor. # Gas gangrene of left 4th toe s/p tibial artery angioplasty 07/24/2018 Continue Zosyn 2.25 gm Q8H Day 12 Continue Clindamycin 600mg IV Q6H Day 9 Continue Plavix 75 mg PO daily Continue Diabetic/sodium controlled diet. Heparin sq Planning for amputation. Medically stable from cardiac standpoint as per cardiology. Will discuss with Dr. Rodriguez tomorrow regarding the amputation. # Normocytic anemia likely from ESRD # Leukocytosis resolved # ESRD (MWF) Creatinine 2.8. HD done yesterday. Continue Sevelamer 800 mg PO TID Avoid nephrotoxic drugs Fluid restriction 1.2L/day # Hyperlipidemia Continue Statin 10mg # FEN Not on IV fluids, can tolerate PO. Electrolytes WNl Sodium/Diabetic diet # Prophylaxis For DVT: On Heparin sq 5000 TID For GI: Not indicated # Code Status: Full Code # Dispo: Admitted in Tele-can be transferred to Med-Surg. Illness, Investigation and Plan of care explained to the patient. She verbalized understanding. Case discussed with Dr. Moon. Problem List - Problems (1) Chronic kidney disease, stage 5, kidney failure Code(s): N18.5 - CHRONIC KIDNEY DISEASE, STAGE 5 (2) DVT prophylaxis Code(s): CCG3088 - (3) Foot ulcer Code(s): L97.509 - NON-PRESSURE CHRONIC ULCER OTH PRT UNSP FOOT W UNSP SEVERITY Qualifiers: Laterality: left Non-pressure ulcer stage: unspecified non-pressure ulcer stage Qualified Code(s): L97.529 - Non-pressure chronic ulcer of other part of left foot with unspecified severity (4) Gas gangrene of foot Code(s): A48.0 - GAS GANGRENE (5) Hypokalemia Code(s): E87.6 - HYPOKALEMIA (6) ESRD (end stage renal disease) Code(s): N18.6 - END STAGE RENAL DISEASE Visit type - Emergency Visit Emergency Visit: Yes ED Registration Date: 07/18/18 Care time: The patient presented to the Emergency Department on the above date and was hospitalized for further evaluation of their emergent condition. - New Patient This patient is new to me today: No - Critical Care Critical Care patient: No - Discharge Referral Referred to [facility] No
[2018-07-31] MEDS: amLODIPine BESYLATE 10 MG TABLET (FP) PO SCH (09:33)
[2018-07-31] MEDS: CLOPIDOGREL BISULFATE 75 MG TABLET (FP) PO SCH (09:34)
[2018-07-31] MEDS: POLYETHYLENE GLYCOL 3350 119 GM BTL PO SCH ×2 (09:34→21:01)
--- NOTE | 2018-07-31 10:35 | PN ---
Progress Note (short form) - Note Progress Note: Progress Note: History of Present Illness: no chest pain, palps, dizziness, lightheadedness, sob Current Medications Acetaminophen (Tylenol -) 650 mg PO Q4H PRN PRN Reason: FEVER Amlodipine Besylate (Norvasc -) 10 mg PO DAILY [facility] Last Admin: 07/31/18 09:33 Dose: 10 mg Atorvastatin Calcium (Lipitor -) 10 mg PO HS [facility] Last Admin: 07/30/18 21:04 Dose: 10 mg Clopidogrel Bisulfate (Plavix -) 75 mg PO DAILY [facility] Last Admin: 07/31/18 09:34 Dose: 75 mg Heparin Sodium (Porcine) (Heparin -) 5,000 unit SQ TID [facility] Last Admin: 07/31/18 05:37 Dose: 5,000 unit Clindamycin Phosphate (Cleocin 600 Mg Premix Ivpb -) 600 mg in 50 mls @ 100 mls /hr IVPB Q6H-IV NOE; Protocol Last Admin: 07/31/18 08:28 Dose: 100 mls/hr Piperacillin Sod/Tazobactam (Sod 2.25 gm/ Dextrose) 50 mls @ 100 mls/hr IVPB Q8H-IV NOE; Protocol Last Admin: 07/31/18 09:33 Dose: 100 mls/hr Sodium Chloride (Normal Saline -) 250 mls @ 3,000 mls/hr IV PRN PRN PRN Reason: Hypotension during Dialysis Stop: 07/30/18 18:45 Oxycodone HCl (Roxicodone -) 5 mg PO Q4H PRN PRN Reason: PAIN LEVEL 6-10 Last Admin: 07/27/18 02:42 Dose: 5 mg Polyethylene Glycol (Miralax (For Daily Use) -) 17 gm PO BID [facility] Last Admin: 07/31/18 09:34 Dose: Not Given Sevelamer Carbonate (Renvela -) 800 mg PO TIDCM [facility] Last Admin: 07/31/18 08:28 Dose: 800 mg Vital Signs Period Temp Pulse Resp BP Sys/Jha Pulse Ox Last 24 Hr 97.4 F-98.2 F 68-87 18-20 110-190/57-97 96-97 nad no jvd rrr s1s2 no mrg cta bl nl eff aaox3 no le edema abd nt nd pos bs no jaundice diaphoresis CBC, BMP 1223/18 07:50 07/29/18 07:50 echo 07/2018 severe conc LVH, nl LVfunction, mild MR, mild AR mibi 07/2018 mod zone of inferolateral fixed defect c/w diaphragmatic attenuation, EF 87% Assessment/Plan 77 yo A female with ESRD on HD, NIDDM, HTN and HPL now admitted with gangrenous left 4th toe that will require a peripheral angiogram with possible BKA. Left toe gangrene, preop -Abx as per primary team - s/p tibial artery angioplasty -->HBO, med rx for now - no cardiac contraindication to possible TMA or BKA, plan per vascular HTN - controlled on amlodipine -Continue to follow HPL -Stable on low intensity statin ESRD -HD as per primary team
--- NOTE | 2018-07-31 15:37 | PN ---
Teaching Attending Note Name of Resident: aPti Salazar ATTENDING PHYSICIAN STATEMENT I saw and evaluated the patient. I reviewed the resident's note and discussed the case with the resident. I agree with the resident's findings and plan as documented. SUBJECTIVE: Patient has no complaints. OBJECTIVE: Vital Signs Period Temp Pulse Resp BP Sys/Jha Pulse Ox Last 24 Hr 97.4 F-98.4 F 79-84 18-20 129-190/57-97 96-97 HEART: S1S2, RRR LUNGS: Clear ABDOMENL Soft, non-tender, non-distended, normal BS EXREMITIES: Trace edema LLE. Gangrene of left 3rd and 4th toes extending to dorsal surface of left foot over 4th metatarsal Laboratory Results - last 24 hr 07/30/18 07/31/18 07/31/18 16:49 05:31 07:50 WBC RBC Hgb Hct MCV MCH MCHC RDW Plt Count MPV PT with INR 14.20 H INR 1.20 H Sodium Potassium Chloride Carbon Dioxide Anion Gap BUN Creatinine Creat Clearance w eGFR POC Glucometer 143 73 Random Glucose Calcium 07/31/18 07/31/18 07/31/18 07:50 07:50 12:09 WBC 7.0 RBC 2.87 L Hgb 9.3 L Hct 27.6 L MCV 96.2 H MCH 32.5 MCHC 33.8 RDW 18.1 H Plt Count 298 D MPV 7.4 L PT with INR INR Sodium 141 Potassium 3.7 Chloride 99 Carbon Dioxide 30 Anion Gap 12 BUN 13 Creatinine 2.8 H Creat Clearance w eGFR 16.34 POC Glucometer 136 Random Glucose 97 Calcium 8.5 Current Medications Generic Name Dose Route Start Last Admin Trade Name Freq PRN Reason Stop Dose Admin Acetaminophen 650 mg 07/25/18 12:47 Tylenol - PO Q4H PRN FEVER Amlodipine Besylate 10 mg 07/31/18 10:00 07/31/18 09:33 Norvasc - PO 10 mg DAILY NOE Administration Atorvastatin Calcium 10 mg 07/25/18 22:00 07/30/18 21:04 Lipitor - PO 10 mg HS NOE Administration Clopidogrel Bisulfate 75 mg 07/26/18 10:00 07/31/18 09:34 Plavix - PO 75 mg DAILY NOE Administration Heparin Sodium (Porcine) 5,000 unit 07/25/18 14:00 07/31/18 14:40 Heparin - SQ 5,000 unit TID NOE Administration Clindamycin Phosphate 600 mg in 50 mls @ 100 mls/hr 07/25/18 15:00 07/31/18 14:40 Cleocin 600 Mg Premix Ivpb - IVPB 100 mls/hr Q6H-IV NOE Administration Protocol Piperacillin Sod/Tazobactam 50 mls @ 100 mls/hr 07/25/18 18:00 07/31/18 09:33 Sod 2.25 gm/ Dextrose IVPB 100 mls/hr Q8H-IV NOE Administration Protocol Sodium Chloride 250 mls @ 3,000 mls/hr 07/29/18 18:45 Normal Saline - IV 07/30/18 18:45 PRN PRN Hypotension during Dialysis Oxycodone HCl 5 mg 07/25/18 12:47 07/27/18 02:42 Roxicodone - PO 5 mg Q4H PRN Administration PAIN LEVEL 6-10 Polyethylene Glycol 17 gm 07/25/18 22:00 07/31/18 09:34 Miralax (For Daily Use) - PO Not Given BID NOE Sevelamer Carbonate 800 mg 07/25/18 17:30 07/31/18 12:10 Renvela - PO 800 mg TIDCM NOE Administration ASSESSMENT AND PLAN: This is a 77 year old woman with a history of ESRD, type 2 DM, HTN, hyperlipidemia who presented to the ED with pain in her left foot. 1. 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 Hypertension - BP has been increasing - Restart Norvsac 3. ESRD with renal osteodystrophy - Continue HD, Renvela 4. Hyperlipidemia - Continue Lipitor 5. Type 2 DM - Diet controlled 6. Anemia secondary to chronic illness/CKD - Continue Procrit
--- NOTE | 2018-07-31 17:19 | PN ---
Progress Note (short form) - Note Progress Note: covering dr kaufman Problems 77 year old AA woman with hx of ESRD on HD, DM, hypertension presented with worsening infection of her foot Gangrene of LE suspected arterial insufficiency of LE Anemia Renal Osteodystrophy Current Medications Acetaminophen (Tylenol -) 650 mg PO Q4H PRN PRN Reason: FEVER Amlodipine Besylate (Norvasc -) 10 mg PO DAILY [facility] Last Admin: 07/31/18 09:33 Dose: 10 mg Atorvastatin Calcium (Lipitor -) 10 mg PO HS NOE Last Admin: 07/30/18 21:04 Dose: 10 mg Clopidogrel Bisulfate (Plavix -) 75 mg PO DAILY [facility] Last Admin: 07/31/18 09:34 Dose: 75 mg Heparin Sodium (Porcine) (Heparin -) 5,000 unit SQ TID NOE Last Admin: 07/31/18 14:40 Dose: 5,000 unit Clindamycin Phosphate (Cleocin 600 Mg Premix Ivpb -) 600 mg in 50 mls @ 100 mls /hr IVPB Q6H-IV NOE; Protocol Last Admin: 07/31/18 14:40 Dose: 100 mls/hr Piperacillin Sod/Tazobactam (Sod 2.25 gm/ Dextrose) 50 mls @ 100 mls/hr IVPB Q8H-IV NOE; Protocol Last Admin: 07/31/18 17:10 Dose: 100 mls/hr Sodium Chloride (Normal Saline -) 250 mls @ 3,000 mls/hr IV PRN PRN PRN Reason: Hypotension during Dialysis Stop: 07/30/18 18:45 Oxycodone HCl (Roxicodone -) 5 mg PO Q4H PRN PRN Reason: PAIN LEVEL 6-10 Last Admin: 07/27/18 02:42 Dose: 5 mg Polyethylene Glycol (Miralax (For Daily Use) -) 17 gm PO BID [facility] Last Admin: 07/31/18 09:34 Dose: Not Given Sevelamer Carbonate (Renvela -) 800 mg PO TIDCM [facility] Last Admin: 07/31/18 17:10 Dose: 800 mg Last Vital Signs Temp Pulse Resp BP Pulse Ox 98.4 F 84 18 139/86 97 07/31/18 14:00 07/31/18 14:00 07/31/18 14:00 07/31/18 14:00 07/31/18 08:31 Lungs clear Heart reg Abd soft ext no edema CBC, BMP 07/29/18 07:50 07/29/18 07:50 IMP-ESRD PAD uneventful hd today next HD monday
[2018-07-31] MEDS ORDERED: SODIUM CHLORIDE 250 ML IV PRN (17:20)
[2018-07-31] MEDS: ATORVASTATIN CA 10 MG TABLET (FP) PO SCH (21:01)
[2018-08-01] MEDS ORDERED: DEXTROSE 5%-WATER - 50 ML IVPB ONE ×3 (01:04→17:10)
[2018-08-01] MEDS ORDERED: PIPERACILLIN/TAZOBACTAM 2.25 GM VIAL IVPB ONE ×3 (01:04→17:10)
[2018-08-01] MEDS: PIPERACILLIN/TAZOB 2.25 GM 2.25 GM in DEXTROSE 5%-WATER - 50 ML IVPB SCH ×3 (01:17→17:15)
[2018-08-01] MEDS: CLINDAMYCIN 600MG PREMIX IVPB 600 MG/50 ML BAG IVPB SCH ×2 (02:08→08:36)
[2018-08-01] MEDS: HEPARIN NA (PORCINE) 5,000 UNITS/ML 1ML VIAL SQ SCH ×2 (06:03→22:04)
[2018-08-01] MEDS: amLODIPine BESYLATE 10 MG TABLET (FP) PO SCH ×2 (06:57→09:19)
[2018-08-01 07:35] LABS: HEMATOCRIT 26.8 % (32.4-45.2); HEMOGLOBIN 9.2 GM/dL (10.7-15.3); MCH 33.1 pg (25.7-33.7); MCHC 34.3 g/dl (32.0-36.0); MEAN CELL VOLUME 96.6 fl (80-96); MEAN PLT VOLUME 7.7 fl (7.5-11.1); PLATELET COUNT 303 K/MM3 (134-434); RBC 2.78 M/mm3 (3.60-5.2); RDW 18.6 % (11.6-15.6); WHITE BLOOD COUNT 6.2 K/mm3 (4.0-10.0)
[2018-08-01 08:35] LABS: ANION GAP 8 MMOL/L (8-16); BLOOD UREA NITROGEN 20 mg/dL (7-18); CHLORIDE 98 mmol/L (98-107); CO2 30 mmol/L (21-32); CREATININE 3.8 mg/dL (0.55-1.3); GLUCOSE,RANDOM 73 mg/dL (74-106); POTASSIUM 4.5 mmol/L (3.5-5.1); SODIUM 137 mmol/L (136-145)
[2018-08-01] MEDS: SEVELAMER CARBONATE 800 MG TAB (FP) PO SCH ×3 (08:36→17:15)
--- NOTE | 2018-08-01 09:53 | PN ---
Progress Note (short form) - Note Progress Note: Patient seen in bed. No distress. vss, Tmax 98.4 +gangarene progressing and demarcating, +mal ododor, +pvd, -drainage, +dry, extending to mid foot over 4th metatarsal, wbc=8.1 PVD Gangarene Patient BP elevated. Xray not done. Spoke with family about planned procedure and modifications as necessary intra op. Explained step garcia fashion. Three toes, necrotic tissue, then possible toes 1&2 AND tma possible. Option of BKA given. Refusing BKA at this time. Both sisters and father present. They will sign consent added to Monday schedule Cancelled for today. Please stabilize BP and maximize pt for or Monday. Xray being done today. Will follow. Continue dressing changes.
--- NOTE | 2018-08-01 09:58 | PN ---
Progress Note (short form) - Note Progress Note: Progress Note: History of Present Illness: no chest pain, palps, dizziness, lightheadedness, sob Current Medications Acetaminophen (Tylenol -) 650 mg PO Q4H PRN PRN Reason: FEVER Amlodipine Besylate (Norvasc -) 10 mg PO DAILY [facility] Last Admin: 08/01/18 09:19 Dose: Not Given Atorvastatin Calcium (Lipitor -) 10 mg PO HS [facility] Last Admin: 07/31/18 21:01 Dose: 10 mg Clopidogrel Bisulfate (Plavix -) 75 mg PO DAILY [facility] Last Admin: 07/31/18 09:34 Dose: 75 mg Heparin Sodium (Porcine) (Heparin -) 5,000 unit SQ TID [facility] Last Admin: 08/01/18 06:03 Dose: Not Given Clindamycin Phosphate (Cleocin 600 Mg Premix Ivpb -) 600 mg in 50 mls @ 100 mls /hr IVPB Q6H-IV NOE; Protocol Last Admin: 08/01/18 08:36 Dose: 100 mls/hr Piperacillin Sod/Tazobactam (Sod 2.25 gm/ Dextrose) 50 mls @ 100 mls/hr IVPB Q8H-IV NOE; Protocol Last Admin: 08/01/18 01:17 Dose: 100 mls/hr Sodium Chloride (Normal Saline -) 250 mls @ 3,000 mls/hr IV PRN PRN PRN Reason: Hypotension during Dialysis Stop: 08/01/18 17:20 Oxycodone HCl (Roxicodone -) 5 mg PO Q4H PRN PRN Reason: PAIN LEVEL 6-10 Last Admin: 07/27/18 02:42 Dose: 5 mg Polyethylene Glycol (Miralax (For Daily Use) -) 17 gm PO BID [facility] Last Admin: 07/31/18 21:01 Dose: Not Given Sevelamer Carbonate (Renvela -) 800 mg PO TIDCM [facility] Last Admin: 08/01/18 08:36 Dose: Not Given Vital Signs Period Temp Pulse Resp BP Sys/Jha Pulse Ox Last 24 Hr 97.5 F-98.4 F 76-84 18-20 139-180/77-86 96 nad no jvd rrr s1s2 no mrg cta bl nl eff aaox3 no le edema abd nt nd pos bs no jaundice diaphoresis echo 07/2018 severe conc LVH, nl LVfunction, mild MR, mild AR mibi 07/2018 mod zone of inferolateral fixed defect c/w diaphragmatic attenuation, EF 87% Assessment/Plan 77 yo A female with ESRD on HD, NIDDM, HTN and HPL now admitted with gangrenous left 4th toe that will require a peripheral angiogram with possible BKA. Left toe gangrene, preop -Abx as per primary team - s/p tibial artery angioplasty -->HBO, med rx for now - no cardiac contraindication to possible TMA or BKA, plan per vascular HTN - elevated today on amlodipine - restart home labetolol 300 mg BID -Continue to follow HPL -Stable on low intensity statin ESRD -HD as per primary team
[2018-08-01] MEDS: POLYETHYLENE GLYCOL 3350 119 GM BTL PO SCH ×2 (11:07→22:04)
--- NOTE | 2018-08-01 12:27 | PN ---
Progress Note, Physician History of Present Illness: patient stable doing well no complaints - Current Medication List Current Medications: Active Medications Acetaminophen (Tylenol -) 650 mg PO Q4H PRN PRN Reason: FEVER Amlodipine Besylate (Norvasc -) 10 mg PO DAILY [facility] Last Admin: 08/01/18 09:19 Dose: Not Given Atorvastatin Calcium (Lipitor -) 10 mg PO HS [facility] Last Admin: 07/31/18 21:01 Dose: 10 mg Clopidogrel Bisulfate (Plavix -) 75 mg PO DAILY [facility] Last Admin: 07/31/18 09:34 Dose: 75 mg Heparin Sodium (Porcine) (Heparin -) 5,000 unit SQ TID [facility] Last Admin: 08/01/18 06:03 Dose: Not Given Piperacillin Sod/Tazobactam (Sod 2.25 gm/ Dextrose) 50 mls @ 100 mls/hr IVPB Q8H-IV [facility]; Protocol Last Admin: 08/01/18 11:07 Dose: 100 mls/hr Sodium Chloride (Normal Saline -) 250 mls @ 3,000 mls/hr IV PRN PRN PRN Reason: Hypotension during Dialysis Stop: 08/01/18 17:20 Labetalol HCl (Normodyne -) 300 mg PO BID [facility] Oxycodone HCl (Roxicodone -) 5 mg PO Q4H PRN PRN Reason: PAIN LEVEL 6-10 Last Admin: 07/27/18 02:42 Dose: 5 mg Polyethylene Glycol (Miralax (For Daily Use) -) 17 gm PO BID [facility] Last Admin: 08/01/18 11:07 Dose: 17 grams Sevelamer Carbonate (Renvela -) 800 mg PO TIDCM [facility] Last Admin: 08/01/18 08:36 Dose: Not Given - Objective Vital Signs: Vital Signs Temperature 97.5 F L 08/01/18 09:16 Pulse Rate 76 08/01/18 09:16 Respiratory Rate 18 08/01/18 09:16 Blood Pressure 180/84 H 08/01/18 09:16 O2 Sat by Pulse Oximetry (%) 96 07/31/18 21:00 Constitutional: Yes: No Distress, Calm Cardiovascular: Yes: Regular Rate and Rhythm Respiratory: Yes: Regular, CTA Bilaterally Gastrointestinal: Yes: Normal Bowel Sounds, Soft Musculoskeletal: Yes: WNL Extremities: Yes: Other Wound/Incision: Yes: Other Neurological: Yes: Alert, Oriented Psychiatric: Yes: Alert, Oriented Labs: CBC, BMP 08/01/18 06:10 08/01/18 06:10 INR, PTT INR 1.20 (0.83-1.09) H 07/31/18 07:50 Assessment/Plan Problem List - Problems (1) gas gangrene of foot Code(s): A48.0 - GAS GANGRENE (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 - OTHER DISORDERS OF CALCIUM METABOLISM (3) Chronic kidney disease, stage 5, kidney failure Code(s): N18.5 - CHRONIC KIDNEY DISEASE, STAGE 5 (4) GERD (gastroesophageal reflux disease) Code(s): K21.9 - GASTRO-ESOPHAGEAL REFLUX DISEASE WITHOUT ESOPHAGITIS (5) Hyperlipidemia Code(s): E78.5 - HYPERLIPIDEMIA, UNSPECIFIED Qualifiers: Hyperlipidemia type: pure hypercholesterolemia Qualified Code(s): E78.00 - Pure hypercholesterolemia, unspecified; E78.0 - Pure hypercholesterolemia (6) Hypertension Code(s): I10 - ESSENTIAL (PRIMARY) HYPERTENSION Qualifiers: Hypertension type: essential hypertension Qualified Code(s): I10 - Essential (primary) hypertension (7) Osteoarthritis Code(s): M19.90 - UNSPECIFIED OSTEOARTHRITIS, UNSPECIFIED SITE (8) Rheumatoid arthritis involving both hips Code(s): M06.9 - RHEUMATOID ARTHRITIS, UNSPECIFIED (9) Hypokalemia Code(s): E87.6 - HYPOKALEMIA plan continue abx await for final paln wound care dialysis rest as per the team patient doing well will change clinda to oral
[2018-08-01] MEDS: LABETALOL HCL 100 MG TABLET (FP) PO SCH ×2 (13:14→22:05)
--- NOTE | 2018-08-01 16:53 | PN ---
Physical Exam: SUBJECTIVE: Patient seen and examined at bed side this morning. No complaints. Denies chest pain, sob, cough, palpitation, abdominal pain, nausea or vomiting. BM yesterday. No acute overnight events. OBJECTIVE: Vital Signs Period Temp Pulse Resp BP Sys/Jha Pulse Ox Last 24 Hr 97.4 F-98.4 F 76-83 18-20 155-180/76-86 96-97 GENERAL: Elderly female, is awake, alert, and fully oriented, in no acute distress. HEAD: Normal with no signs of trauma. EYES: EOM intact , pallor +, No icterus. ENT: Ears normal, moist mucous membranes. NECK: Supple. LUNGS: B.L Breath sounds equal, clear to auscultation bilaterally, no wheezes, no crackles, no accessory muscle use. HEART: Regular rate and rhythm, S1, S2 without murmur, rub or gallop. ABDOMEN: Soft, nontender, no organomegaly, BS + UPPER EXTREMITIES: Left upper forearm-fistula functioning, 2+ pulses, warm, well -perfused, no edema. LOWER EXTREMITIES: LEFT: Gangrene of L second and third digit, blackish discoloration till the mid foot. NEUROLOGICAL: No facial droop. Normal speech, gait not observed. PSYCH: Normal mood, normal affect. SKIN: Warm, dry, normal turgor, no rashes or lesions noted Laboratory Results - last 24 hr 07/31/18 07/31/18 08/01/18 17:17 20:33 06:04 WBC RBC Hgb Hct MCV MCH MCHC RDW Plt Count MPV Sodium Potassium Chloride Carbon Dioxide Anion Gap BUN Creatinine Creat Clearance w eGFR POC Glucometer 99 141 78 Random Glucose Calcium 08/01/18 08/01/18 08/01/18 06:10 06:10 11:17 WBC 6.2 RBC 2.78 L Hgb 9.2 L Hct 26.8 L MCV 96.6 H MCH 33.1 MCHC 34.3 RDW 18.6 H Plt Count 303 MPV 7.7 Sodium 137 Potassium 4.5 Chloride 98 Carbon Dioxide 30 Anion Gap 8 BUN 20 H Creatinine 3.8 H Creat Clearance w eGFR 11.49 POC Glucometer 99 Random Glucose 73 L Calcium 9.0 08/01/18 16:19 WBC RBC Hgb Hct MCV MCH MCHC RDW Plt Count MPV Sodium Potassium Chloride Carbon Dioxide Anion Gap BUN Creatinine Creat Clearance w eGFR POC Glucometer 149 Random Glucose Calcium Active Medications Generic Name Dose Route Start Last Admin Trade Name Freq PRN Reason Stop Dose Admin Acetaminophen 650 mg 07/25/18 12:47 Tylenol - PO Q4H PRN FEVER Amlodipine Besylate 10 mg 07/31/18 10:00 08/01/18 09:19 Norvasc - PO Not Given DAILY NOE Atorvastatin Calcium 10 mg 07/25/18 22:00 07/31/18 21:01 Lipitor - PO 10 mg HS NOE Administration Clindamycin HCl 300 mg 08/01/18 18:00 Cleocin - PO Q6HPO NOE Clopidogrel Bisulfate 75 mg 07/26/18 10:00 07/31/18 09:34 Plavix - PO 75 mg DAILY NOE Administration Heparin Sodium (Porcine) 5,000 unit 07/25/18 14:00 08/01/18 06:03 Heparin - SQ Not Given TID NOE Piperacillin Sod/Tazobactam 50 mls @ 100 mls/hr 07/25/18 18:00 08/01/18 11:07 Sod 2.25 gm/ Dextrose IVPB 100 mls/hr Q8H-IV NOE Administration Protocol Sodium Chloride 250 mls @ 3,000 mls/hr 07/31/18 17:20 Normal Saline - IV 08/01/18 17:20 PRN PRN Hypotension during Dialysis Labetalol HCl 300 mg 08/01/18 12:00 08/01/18 13:14 Normodyne - PO 300 mg BID NOE Administration Oxycodone HCl 5 mg 07/25/18 12:47 07/27/18 02:42 Roxicodone - PO 5 mg Q4H PRN Administration PAIN LEVEL 6-10 Polyethylene Glycol 17 gm 07/25/18 22:00 08/01/18 11:07 Miralax (For Daily Use) - PO 17 grams BID NOE Administration Sevelamer Carbonate 800 mg 07/25/18 17:30 08/01/18 12:28 Renvela - PO 800 mg TIDCM NOE Administration ASSESSMENT/PLAN: Lower ext CT 07/18/18 shows Air/Gas accumulation is seen within the soft tissues surrounding the fourth toe consistent with gas forming infection Stress test done 07/23: Overall negative pharmacologic stress test. EF 87 % Patient is a 77 year old female PMHx of ESRD (T,Th,S), DM, HTN, HLD, admitted with Left 4th toe wound and pain for a month. 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 Will optimize. Surgery on Monday, hold plavix Continue Zosyn 2.25 gm Q8H Day 13 Switched IV to PO Clindamycin Day 1 (completed 10 day of IV Clindamycin) Hold Plavix 75 mg PO daily Continue Diabetic/sodium controlled diet. Heparin sq # Hypertension Started on Amlodipine 10mg daily since 07/31 due to HTN. Was off amlodipine during this admission due to hypotensive episodes. Started Labetolol 300 mg PO Daily today # Normocytic anemia likely from ESRD # Leukocytosis resolved # ESRD (TTS) HD as per nephro Continue Sevelamer 800 mg PO TID Avoid nephrotoxic drugs Fluid restriction 1.2L/day # Hyperlipidemia Continue Statin 10mg # FEN Not on IV fluids, can tolerate PO. Electrolytes WNl Sodium/Diabetic diet # Prophylaxis For DVT: On Heparin sq 5000 TID For GI: Not indicated # Code Status: Full Code # Dispo: Admitted in Tele-can be transferred to Med-Surg. Illness, Investigation and Plan of care explained to the patient. She verbalized understanding. Case discussed with Dr. Shaw. Problem List - Problems (1) Chronic kidney disease, stage 5, kidney failure Code(s): N18.5 - CHRONIC KIDNEY DISEASE, STAGE 5 (2) DVT prophylaxis Code(s): [id number] - (3) Foot ulcer Code(s): L97.509 - NON-PRESSURE CHRONIC ULCER OTH PRT UNSP FOOT W UNSP SEVERITY Qualifiers: Laterality: left Non-pressure ulcer stage: unspecified non-pressure ulcer stage Qualified Code(s): L97.529 - Non-pressure chronic ulcer of other part of left foot with unspecified severity (4) Gas gangrene of foot Code(s): A48.0 - GAS GANGRENE (5) Hypokalemia Code(s): E87.6 - HYPOKALEMIA (6) ESRD (end stage renal disease) Code(s): N18.6 - END STAGE RENAL DISEASE Visit type - Emergency Visit Emergency Visit: Yes ED Registration Date: 07/18/18 Care time: The patient presented to the Emergency Department on the above date and was hospitalized for further evaluation of their emergent condition. - New Patient This patient is new to me today: No - Critical Care Critical Care patient: No - Discharge Referral Referred to [facility] No
[2018-08-01] MEDS: CLINDAMYCIN HCL 150 MG CAPSULE (FP) PO SCH (17:15)
--- NOTE | 2018-08-01 17:57 | PN ---
Teaching Attending Note Name of Resident: Pati Salazar ATTENDING PHYSICIAN STATEMENT I saw and evaluated the patient. I reviewed the resident's note and discussed the case with the resident. I agree with the resident's findings and plan as documented. SUBJECTIVE: Ms Crain is without complaint. Denies cp, sob, n/v. 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 - OTHER DISORDERS OF CALCIUM METABOLISM (3) Chronic kidney disease, stage 5, kidney failure Code(s): N18.5 - CHRONIC KIDNEY DISEASE, STAGE 5 (4) GERD (gastroesophageal reflux disease) Code(s): K21.9 - GASTRO-ESOPHAGEAL REFLUX DISEASE WITHOUT ESOPHAGITIS (5) Hyperlipidemia Code(s): E78.5 - HYPERLIPIDEMIA, UNSPECIFIED Qualifiers: Hyperlipidemia type: pure hypercholesterolemia Qualified Code(s): E78.00 - Pure hypercholesterolemia, unspecified; E78.0 - Pure hypercholesterolemia (6) Hypertension Code(s): I10 - ESSENTIAL (PRIMARY) HYPERTENSION Qualifiers: Hypertension type: essential hypertension Qualified Code(s): I10 - Essential (primary) hypertension (7) Hypokalemia Code(s): E87.6 - HYPOKALEMIA
[2018-08-01] MEDS: ATORVASTATIN CA 10 MG TABLET (FP) PO SCH (22:05)
[2018-08-02] MEDS: CLINDAMYCIN HCL 150 MG CAPSULE (FP) PO SCH ×5 (00:59→23:04)
[2018-08-02] MEDS ORDERED: DEXTROSE 5%-WATER - 50 ML IVPB ONE ×2 (01:03→17:15)
[2018-08-02] MEDS ORDERED: PIPERACILLIN/TAZOBACTAM 2.25 GM VIAL IVPB ONE ×2 (01:03→17:14)
[2018-08-02] MEDS: PIPERACILLIN/TAZOB 2.25 GM 2.25 GM in DEXTROSE 5%-WATER - 50 ML IVPB SCH ×3 (01:20→17:18)
[2018-08-02] MEDS: HEPARIN NA (PORCINE) 5,000 UNITS/ML 1ML VIAL SQ SCH ×2 (06:24→14:28)
[2018-08-02 08:36] LABS: ANION GAP 12 MMOL/L (8-16); BLOOD UREA NITROGEN 27 mg/dL (7-18); CHLORIDE 96 mmol/L (98-107); CO2 27 mmol/L (21-32); CREATININE 4.7 mg/dL (0.55-1.3); GLUCOSE,RANDOM 76 mg/dL (74-106); POTASSIUM 4.8 mmol/L (3.5-5.1); SODIUM 135 mmol/L (136-145)
[2018-08-02] MEDS: SEVELAMER CARBONATE 800 MG TAB (FP) PO SCH ×3 (10:05→17:18)
--- NOTE | 2018-08-02 10:18 | PN ---
Progress Note (short form) - Note Progress Note: Renal follow up for ESRD on HD Pt seen and examined during dialysis. BP is stable, goal UF is ~2.5L pt without complaints no cp, sob, abd pain, N/V/D Vital Signs Temperature 98.2 F 08/02/18 05:36 Pulse Rate 72 08/02/18 05:36 Respiratory Rate 18 08/02/18 05:36 Blood Pressure 140/64 08/02/18 05:36 O2 Sat by Pulse Oximetry (%) 98 08/01/18 21:00 NAD awake and alert trace Le edema CBC, BMP 08/01/18 06:10 08/02/18 07:00 Current Medications Acetaminophen (Tylenol -) 650 mg PO Q4H PRN PRN Reason: FEVER Amlodipine Besylate (Norvasc -) 10 mg PO DAILY [facility] Last Admin: 08/01/18 09:19 Dose: Not Given Atorvastatin Calcium (Lipitor -) 10 mg PO HS [facility] Last Admin: 08/01/18 22:05 Dose: 10 mg Clindamycin HCl (Cleocin -) 300 mg PO Q6HPO [facility] Last Admin: 08/02/18 06:24 Dose: 300 mg Clopidogrel Bisulfate (Plavix -) 75 mg PO DAILY [facility] Last Admin: 07/31/18 09:34 Dose: 75 mg Heparin Sodium (Porcine) (Heparin -) 5,000 unit SQ TID [facility] Last Admin: 08/02/18 06:24 Dose: 5,000 unit Piperacillin Sod/Tazobactam (Sod 2.25 gm/ Dextrose) 50 mls @ 100 mls/hr IVPB Q8H-IV NOE; Protocol Last Admin: 08/02/18 01:20 Dose: 100 mls/hr Sodium Chloride (Normal Saline -) 250 mls @ 3,000 mls/hr IV PRN PRN PRN Reason: Hypotension during Dialysis Stop: 08/01/18 17:20 Labetalol HCl (Normodyne -) 300 mg PO BID [facility] Last Admin: 08/01/18 22:05 Dose: 300 mg Oxycodone HCl (Roxicodone -) 5 mg PO Q4H PRN PRN Reason: PAIN LEVEL 6-10 Last Admin: 07/27/18 02:42 Dose: 5 mg Polyethylene Glycol (Miralax (For Daily Use) -) 17 gm PO BID [facility] Last Admin: 08/01/18 22:04 Dose: 17 grams Sevelamer Carbonate (Renvela -) 800 mg PO TIDCM [facility] Last Admin: 08/02/18 10:05 Dose: Not Given 77 year old AA woman with hx of ESRD on HD, DM, hypertension who presented with worsening infection of her foot #Gangrene of LE #arterial insufficiency of LE #ESRD on HD #DM #Anemia #Renal Osteodystrophy tolerating dialysis well this am BP improved today, continue labetalol 300mg BID and Amlodipine 10mg Daily for debridement/toe amputations tomorrow will continue SHARA with HD today Abx as per ID continue renvela with meals Asa Smith DO
--- NOTE | 2018-08-02 11:24 | PN ---
Progress Note (short form) - Note Progress Note: History of Present Illness: no chest pain, palps, dizziness, lightheadedness, sob Current Medications Generic Name Dose Route Start Last Admin Trade Name Freq PRN Reason Stop Dose Admin Acetaminophen 650 mg 07/25/18 12:47 Tylenol - PO Q4H PRN FEVER Amlodipine Besylate 10 mg 07/31/18 10:00 08/01/18 09:19 Norvasc - PO Not Given DAILY NOE Atorvastatin Calcium 10 mg 07/25/18 22:00 08/01/18 22:05 Lipitor - PO 10 mg HS NOE Administration Clindamycin HCl 300 mg 08/01/18 18:00 08/02/18 06:24 Cleocin - PO 300 mg Q6HPO NOE Administration Clopidogrel Bisulfate 75 mg 07/26/18 10:00 07/31/18 09:34 Plavix - PO 75 mg DAILY NOE Administration Heparin Sodium (Porcine) 5,000 unit 08/01/18 22:00 08/02/18 06:24 Heparin - SQ 5,000 unit TID NOE Administration Piperacillin Sod/Tazobactam 50 mls @ 100 mls/hr 07/25/18 18:00 08/02/18 01:20 Sod 2.25 gm/ Dextrose IVPB 100 mls/hr Q8H-IV NOE Administration Protocol Sodium Chloride 250 mls @ 3,000 mls/hr 07/31/18 17:20 Normal Saline - IV 08/01/18 17:20 PRN PRN Hypotension during Dialysis Labetalol HCl 300 mg 08/01/18 12:00 08/01/18 22:05 Normodyne - PO 300 mg BID NOE Administration Oxycodone HCl 5 mg 07/25/18 12:47 07/27/18 02:42 Roxicodone - PO 5 mg Q4H PRN Administration PAIN LEVEL 6-10 Polyethylene Glycol 17 gm 07/25/18 22:00 08/01/18 22:04 Miralax (For Daily Use) - PO 17 grams BID NOE Administration Sevelamer Carbonate 800 mg 07/25/18 17:30 08/02/18 10:05 Renvela - PO Not Given TIDCM NOE Vital Signs Period Temp Pulse Resp BP Sys/Jha Pulse Ox Last 24 Hr 97.4 F-98.4 F 66-83 18-18 140-174/61-86 98 nad no jvd rrr s1s2 no mrg cta bl nl eff aaox3 no le edema abd nt nd pos bs no jaundice diaphoresis CBC, BMP 08/01/18 06:10 08/02/18 07:00 echo 07/2018 severe conc LVH, nl LVfunction, mild MR, mild AR mibi 07/2018 mod zone of inferolateral fixed defect c/w diaphragmatic attenuation, EF 87% Assessment/Plan 77 yo A female with ESRD on HD, NIDDM, HTN and HPL now admitted with gangrenous left 4th toe that will require a peripheral angiogram with possible BKA. Left toe gangrene, preop -Abx as per primary team -s/p tibial artery angioplasty -no cardiac contraindication to possible TMA or BKA, plan per vascular HTN -controlled -Continue to monitor HPL -Stable on low intensity statin ESRD -HD as per primary team
--- NOTE | 2018-08-02 12:08 | PN ---
Progress Note, Physician History of Present Illness: stable no new issues - Current Medication List Current Medications: Active Medications Acetaminophen (Tylenol -) 650 mg PO Q4H PRN PRN Reason: FEVER Amlodipine Besylate (Norvasc -) 10 mg PO DAILY [facility] Last Admin: 08/01/18 09:19 Dose: Not Given Atorvastatin Calcium (Lipitor -) 10 mg PO HS [facility] Last Admin: 08/01/18 22:05 Dose: 10 mg Clindamycin HCl (Cleocin -) 300 mg PO Q6HPO [facility] Last Admin: 08/02/18 06:24 Dose: 300 mg Clopidogrel Bisulfate (Plavix -) 75 mg PO DAILY [facility] Last Admin: 07/31/18 09:34 Dose: 75 mg Heparin Sodium (Porcine) (Heparin -) 5,000 unit SQ TID [facility] Last Admin: 08/02/18 06:24 Dose: 5,000 unit Piperacillin Sod/Tazobactam (Sod 2.25 gm/ Dextrose) 50 mls @ 100 mls/hr IVPB Q8H-IV [facility]; Protocol Last Admin: 08/02/18 01:20 Dose: 100 mls/hr Sodium Chloride (Normal Saline -) 250 mls @ 3,000 mls/hr IV PRN PRN PRN Reason: Hypotension during Dialysis Stop: 08/01/18 17:20 Labetalol HCl (Normodyne -) 300 mg PO BID [facility] Last Admin: 08/01/18 22:05 Dose: 300 mg Oxycodone HCl (Roxicodone -) 5 mg PO Q4H PRN PRN Reason: PAIN LEVEL 6-10 Last Admin: 07/27/18 02:42 Dose: 5 mg Polyethylene Glycol (Miralax (For Daily Use) -) 17 gm PO BID [facility] Last Admin: 08/01/18 22:04 Dose: 17 grams Sevelamer Carbonate (Renvela -) 800 mg PO TIDCM [facility] Last Admin: 08/02/18 10:05 Dose: Not Given - Objective Vital Signs: Vital Signs Temperature 97.7 F 08/02/18 09:30 Pulse Rate 66 08/02/18 11:15 Respiratory Rate 18 08/02/18 11:15 Blood Pressure 155/64 08/02/18 11:15 O2 Sat by Pulse Oximetry (%) 98 08/01/18 21:00 Constitutional: Yes: No Distress, Calm Cardiovascular: Yes: Regular Rate and Rhythm Respiratory: Yes: Regular, CTA Bilaterally Gastrointestinal: Yes: Normal Bowel Sounds, Soft Musculoskeletal: Yes: Other Extremities: Yes: Other Neurological: Yes: Alert, Oriented Psychiatric: Yes: Alert, Oriented Labs: CBC, BMP 08/01/18 06:10 08/02/18 07:00 INR, PTT INR 1.20 (0.83-1.09) H 07/31/18 07:50 Assessment/Plan Problem List - Problems (1) gas gangrene of foot Code(s): A48.0 - GAS GANGRENE (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 - OTHER DISORDERS OF CALCIUM METABOLISM (3) Chronic kidney disease, stage 5, kidney failure Code(s): N18.5 - CHRONIC KIDNEY DISEASE, STAGE 5 (4) GERD (gastroesophageal reflux disease) Code(s): K21.9 - GASTRO-ESOPHAGEAL REFLUX DISEASE WITHOUT ESOPHAGITIS (5) Hyperlipidemia Code(s): E78.5 - HYPERLIPIDEMIA, UNSPECIFIED Qualifiers: Hyperlipidemia type: pure hypercholesterolemia Qualified Code(s): E78.00 - Pure hypercholesterolemia, unspecified; E78.0 - Pure hypercholesterolemia (6) Hypertension Code(s): I10 - ESSENTIAL (PRIMARY) HYPERTENSION Qualifiers: Hypertension type: essential hypertension Qualified Code(s): I10 - Essential (primary) hypertension (7) Osteoarthritis Code(s): M19.90 - UNSPECIFIED OSTEOARTHRITIS, UNSPECIFIED SITE (8) Rheumatoid arthritis involving both hips Code(s): M06.9 - RHEUMATOID ARTHRITIS, UNSPECIFIED (9) Hypokalemia Code(s): E87.6 - HYPOKALEMIA plan continue abx await for final paln wound care dialysis rest as per the team patient doing well
[2018-08-02] MEDS: LABETALOL HCL 100 MG TABLET (FP) PO SCH ×2 (14:27→23:04)
[2018-08-02] MEDS: amLODIPine BESYLATE 10 MG TABLET (FP) PO SCH (14:28)
--- NOTE | 2018-08-02 14:43 | PN ---
Teaching Attending Note Name of Resident: Pati Salazar ATTENDING PHYSICIAN STATEMENT I saw and evaluated the patient. I reviewed the resident's note and discussed the case with the resident. I agree with the resident's findings and plan as documented. SUBJECTIVE: Ms Crain is without complaint today. She denies cp, sob, n/v. 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 - OTHER DISORDERS OF CALCIUM METABOLISM (3) Chronic kidney disease, stage 5, kidney failure Code(s): N18.5 - CHRONIC KIDNEY DISEASE, STAGE 5 (4) GERD (gastroesophageal reflux disease) Code(s): K21.9 - GASTRO-ESOPHAGEAL REFLUX DISEASE WITHOUT ESOPHAGITIS (5) Hyperlipidemia Code(s): E78.5 - HYPERLIPIDEMIA, UNSPECIFIED Qualifiers: Hyperlipidemia type: pure hypercholesterolemia Qualified Code(s): E78.00 - Pure hypercholesterolemia, unspecified; E78.0 - Pure hypercholesterolemia (6) Hypertension Code(s): I10 - ESSENTIAL (PRIMARY) HYPERTENSION Qualifiers: Hypertension type: essential hypertension Qualified Code(s): I10 - Essential (primary) hypertension (7) Hypokalemia Code(s): E87.6 - HYPOKALEMIA
--- NOTE | 2018-08-02 14:56 | PN ---
Physical Exam: SUBJECTIVE: Patient seen and examined at bed side this morning. No complaints. No acute overnight events. OBJECTIVE: Vital Signs Period Temp Pulse Resp BP Sys/Jha Pulse Ox Last 24 Hr 96.3 F-98.4 F 66-82 18-18 132-166/61-106 95-98 GENERAL: Elderly female, is awake, alert, and fully oriented, in no acute distress. HEAD: Normal with no signs of trauma. EYES: EOM intact , pallor +, No icterus. ENT: Ears normal, moist mucous membranes. NECK: Supple. LUNGS: B.L Breath sounds equal, clear to auscultation bilaterally, no wheezes, no crackles, no accessory muscle use. HEART: Regular rate and rhythm, S1, S2 without murmur, rub or gallop. ABDOMEN: Soft, nontender, no organomegaly, BS + UPPER EXTREMITIES: Left upper forearm-fistula functioning, 2+ pulses, warm, well -perfused, no edema. LOWER EXTREMITIES: LEFT: Gangrene of L second and third digit, blackish discoloration till the mid foot. NEUROLOGICAL: No facial droop. Normal speech, gait not observed. PSYCH: Normal mood, normal affect. SKIN: Warm, dry, normal turgor, no rashes or lesions noted Laboratory Results - last 24 hr 08/01/18 08/01/18 08/02/18 16:19 22:03 05:34 Sodium Potassium Chloride Carbon Dioxide Anion Gap BUN Creatinine Creat Clearance w eGFR POC Glucometer 149 131 85 Random Glucose Calcium 08/02/18 07:00 Sodium 135 L Potassium 4.8 Chloride 96 L Carbon Dioxide 27 Anion Gap 12 BUN 27 H Creatinine 4.7 H Creat Clearance w eGFR 8.99 POC Glucometer Random Glucose 76 Calcium 9.0 Active Medications Generic Name Dose Route Start Last Admin Trade Name Freq PRN Reason Stop Dose Admin Acetaminophen 650 mg 07/25/18 12:47 Tylenol - PO Q4H PRN FEVER Amlodipine Besylate 10 mg 07/31/18 10:00 08/02/18 14:28 Norvasc - PO 10 mg DAILY NOE Administration Atorvastatin Calcium 10 mg 07/25/18 22:00 08/01/18 22:05 Lipitor - PO 10 mg HS NOE Administration Clindamycin HCl 300 mg 08/01/18 18:00 08/02/18 14:28 Cleocin - PO 300 mg Q6HPO NOE Administration Clopidogrel Bisulfate 75 mg 07/26/18 10:00 07/31/18 09:34 Plavix - PO 75 mg DAILY NOE Administration Heparin Sodium (Porcine) 5,000 unit 08/01/18 22:00 08/02/18 14:28 Heparin - SQ 5,000 unit TID NEO Administration Piperacillin Sod/Tazobactam 50 mls @ 100 mls/hr 07/25/18 18:00 08/02/18 01:20 Sod 2.25 gm/ Dextrose IVPB 100 mls/hr Q8H-IV NOE Administration Protocol Sodium Chloride 250 mls @ 3,000 mls/hr 07/31/18 17:20 Normal Saline - IV 08/01/18 17:20 PRN PRN Hypotension during Dialysis Labetalol HCl 300 mg 08/01/18 12:00 08/02/18 14:27 Normodyne - PO 300 mg BID NOE Administration Oxycodone HCl 5 mg 07/25/18 12:47 07/27/18 02:42 Roxicodone - PO 5 mg Q4H PRN Administration PAIN LEVEL 6-10 Polyethylene Glycol 17 gm 07/25/18 22:00 08/01/18 22:04 Miralax (For Daily Use) - PO 17 grams BID NOE Administration Sevelamer Carbonate 800 mg 07/25/18 17:30 08/02/18 14:28 Renvela - PO 800 mg TIDCM NOE Administration ASSESSMENT/PLAN: Lower ext CT 07/18/18 shows Air/Gas accumulation is seen within the soft tissues surrounding the fourth toe consistent with gas forming infection Stress test done 07/23: Overall negative pharmacologic stress test. EF 87 % Patient is a 77 year old female PMHx of ESRD (T,Th,S), DM, HTN, HLD, admitted with Left 4th toe wound and pain for a month. 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 Hold plavix and Hold heparin. Continue Zosyn 2.25 gm Q8H Day 14 Switched IV to PO Clindamycin Day 2 (completed 10 day of IV Clindamycin) Hold Plavix 75 mg PO daily Continue Diabetic/sodium controlled diet. Heparin sq on hold. # Hypertension Started on Amlodipine 10mg daily since 07/31 due to HTN. Started Labetolol 300 mg PO Daily today # Normocytic anemia likely from ESRD # Leukocytosis resolved # ESRD (TTS) HD as per nephro Continue Sevelamer 800 mg PO TID Avoid nephrotoxic drugs Fluid restriction 1.2L/day # Hyperlipidemia Continue Statin 10mg # FEN Not on IV fluids, can tolerate PO. Electrolytes WNl Sodium/Diabetic diet # Prophylaxis For DVT: Heparin on hold for amputation. For GI: Not indicated # Code Status: Full Code # Dispo: Admitted in Tele-can be transferred to Med-Surg. Illness, Investigation and Plan of care explained to the patient. She verbalized understanding. Case discussed with Dr. Shaw. Problem List - Problems (1) Chronic kidney disease, stage 5, kidney failure Code(s): N18.5 - CHRONIC KIDNEY DISEASE, STAGE 5 (2) DVT prophylaxis Code(s): LSL0580 - (3) Foot ulcer Code(s): L97.509 - NON-PRESSURE CHRONIC ULCER OTH PRT UNSP FOOT W UNSP SEVERITY Qualifiers: Laterality: left Non-pressure ulcer stage: unspecified non-pressure ulcer stage Qualified Code(s): L97.529 - Non-pressure chronic ulcer of other part of left foot with unspecified severity (4) Gas gangrene of foot Code(s): A48.0 - GAS GANGRENE (5) Hypokalemia Code(s): E87.6 - HYPOKALEMIA (6) ESRD (end stage renal disease) Code(s): N18.6 - END STAGE RENAL DISEASE Visit type - Emergency Visit Emergency Visit: Yes ED Registration Date: 07/18/18 Care time: The patient presented to the Emergency Department on the above date and was hospitalized for further evaluation of their emergent condition. - New Patient This patient is new to me today: No - Critical Care Critical Care patient: No - Discharge Referral Referred to [facility] No
[2018-08-02] MEDS: POLYETHYLENE GLYCOL 3350 119 GM BTL PO SCH ×2 (15:12→23:04)
[2018-08-02] MEDS: ATORVASTATIN CA 10 MG TABLET (FP) PO SCH (23:04)
[2018-08-03] MEDS ORDERED: DEXTROSE 5%-WATER - 50 ML IVPB ONE ×2 (00:46→17:14)
[2018-08-03] MEDS ORDERED: PIPERACILLIN/TAZOBACTAM 2.25 GM VIAL IVPB ONE ×2 (00:46→17:14)
[2018-08-03] MEDS: PIPERACILLIN/TAZOB 2.25 GM 2.25 GM in DEXTROSE 5%-WATER - 50 ML IVPB SCH ×3 (01:03→20:24)
[2018-08-03] MEDS: CLINDAMYCIN HCL 150 MG CAPSULE (FP) PO SCH ×3 (05:01→17:18)
[2018-08-03 06:41] LABS: BASO % 1.1 % (0-2.0); HEMATOCRIT 26.5 % (32.4-45.2); HEMOGLOBIN 8.5 GM/dL (10.7-15.3); LYMPH % 17.7 % (8-40); MCH 31.1 pg (25.7-33.7); MCHC 31.9 g/dl (32.0-36.0); MEAN CELL VOLUME 97.4 fl (80-96); MEAN PLT VOLUME 7.3 fl (7.5-11.1); MONO % 10.6 % (3.8-10.2); NEUT % 66.6 % (42.8-82.8); PLATELET COUNT 278 K/MM3 (134-434); RBC 2.73 M/mm3 (3.60-5.2); RDW 18.7 % (11.6-15.6)
[2018-08-03 06:52] LABS: INR 1.18 (0.83-1.09); PROTHROMBIN TIME (PATIENT) 13.9 SEC (9.7-13.0)
[2018-08-03 07:21] LABS: ANION GAP 9 MMOL/L (8-16); BLOOD UREA NITROGEN 17 mg/dL (7-18); CALCIUM 8.1 mg/dL (8.5-10.1); CHLORIDE 97 mmol/L (98-107); CO2 34 mmol/L (21-32); CREATININE 3.1 mg/dL (0.55-1.3); GLUCOSE,RANDOM 86 mg/dL (74-106); PHOSPHOROUS 4.2 mg/dL (2.5-4.9); POTASSIUM 4.3 mmol/L (3.5-5.1); SODIUM 140 mmol/L (136-145)
[2018-08-03] MEDS: SEVELAMER CARBONATE 800 MG TAB (FP) PO SCH ×3 (08:08→17:18)
[2018-08-03] MEDS ORDERED: BUPIVACAINE HCL/PF 0.5% (5MG/ML) 10 ML VIAL ONE (08:50)
[2018-08-03] MEDS ORDERED: LIDOCAINE HCL 1%, 10 MG/ML (20ML VIAL) ONE (08:50)
[2018-08-03] MEDS ORDERED: LIDOCAINE HCL/PF 2% SDV 5ML VIAL ONE (09:08)
[2018-08-03] MEDS ORDERED: PROPOFOL 20 ML ONE (09:08)
[2018-08-03] MEDS ORDERED: MIDAZOLAM HCL 2 MG/2 ML SINGLE DOSE VIAL ONE (09:08)
[2018-08-03] MEDS ORDERED: BUPIVACAINE HCL/PF 0.5% (5MG/ML) 10 ML VIAL NR ONE (09:30)
[2018-08-03] MEDS ORDERED: LIDOCAINE HCL 1%, 10 MG/ML (20ML VIAL) NR ONE (09:30)
[2018-08-03] MEDS ORDERED: BACITRACIN 50,000 UNITS VIAL NR ONE (10:15)
[2018-08-03] MEDS ORDERED: LIDOCAINE HCL 1%, 10 MG/ML (20ML VIAL) INF ONE (10:20)
[2018-08-03] MEDS ORDERED: SODIUM CHLORIDE 1,000 ML IV SCH ×2 (10:45→11:00)
[2018-08-03] MEDS ORDERED: SODIUM CHLORIDE 250 ML IV PRN (11:00)
--- NOTE | 2018-08-03 11:34 | OP ---
Operative Note - Note: Operative Date: 08/03/18 Pre-Operative Diagnosis: gangarene, om left foot Operation: transmetatarsal amputation 3,4,5 left foot, debridement of necrotic tissue Findings: necrotic tissue, foul odor, soft bone, Post-Operative Diagnosis: Same as Pre-op Surgeon: Remi Paul Framing Manager: Nael Ford Anesthesia: Local, MAC Specimens Removed: bone and soft tissue Estimated Blood Loss (mls): 10 Instrument used (Debridements only): saw, 15 blade Drains & Tubes with Location: 08/10" iodoform packing Operative Report Dictated: Yes
[2018-08-03] MEDS: oxyCODONE HCL 5 MG TABLET PO PRN ×3 (11:54→20:45)
--- NOTE | 2018-08-03 12:24 | PN ---
Progress Note (short form) - Note Progress Note: History of Present Illness: no chest pain, palps, dizziness, lightheadedness, sob Current Medications Generic Name Dose Route Start Last Admin Trade Name Freq PRN Reason Stop Dose Admin Acetaminophen 650 mg 08/03/18 11:00 Tylenol - PO Q4H PRN FEVER Amlodipine Besylate 10 mg 08/04/18 10:00 Norvasc - PO DAILY NOE Atorvastatin Calcium 10 mg 08/03/18 22:00 Lipitor - PO HS NOE Clindamycin HCl 300 mg 08/03/18 12:00 08/03/18 11:53 Cleocin - PO 300 mg Q6HPO NOE Administration Clopidogrel Bisulfate 75 mg 08/04/18 10:00 Plavix - PO DAILY NOE Sodium Chloride 250 mls @ 3,000 mls/hr 08/03/18 11:00 Normal Saline - IV PRN PRN Hypotension during Dialysis Piperacillin Sod/Tazobactam 50 mls @ 100 mls/hr 08/03/18 18:00 Sod 2.25 gm/ Dextrose IVPB Q8H-IV NOE Protocol Labetalol HCl 300 mg 08/03/18 22:00 Normodyne - PO BID NOE Oxycodone HCl 5 mg 08/03/18 11:00 08/03/18 11:54 Roxicodone - PO 5 mg Q4H PRN Administration PAIN LEVEL 6-10 Polyethylene Glycol 17 gm 08/03/18 22:00 Miralax (For Daily Use) - PO BID NOE Sevelamer Carbonate 800 mg 08/03/18 12:00 08/03/18 11:53 Renvela - PO 800 mg TIDCM NOE Administration Vital Signs Period Temp Pulse Resp BP Sys/Jha Pulse Ox Last 24 Hr 96.3 F-98.3 F 66-82 15-21 120-162/60-106 95-100 nad no jvd rrr s1s2 no mrg cta bl nl eff aaox3 no le edema abd nt nd pos bs no jaundice diaphoresis CBC, BMP 08/03/18 05:45 08/03/18 05:45 echo 07/2018 severe conc LVH, nl LVfunction, mild MR, mild AR mibi 07/2018 mod zone of inferolateral fixed defect c/w diaphragmatic attenuation, EF 87% Assessment/Plan 77 yo A female with ESRD on HD, NIDDM, HTN and HPL now admitted with gangrenous left 4th toe that will require a peripheral angiogram with possible BKA. Left toe gangrene: -s/p TMA 08/03 -Abx as per primary team HTN -controlled -Continue to monitor HPL -Stable on low intensity statin ESRD -HD as per renal
--- NOTE | 2018-08-03 13:06 | PN ---
Progress Note, Physician History of Present Illness: patient stable no new issues - Current Medication List Current Medications: Active Medications Acetaminophen (Tylenol -) 650 mg PO Q4H PRN PRN Reason: FEVER Amlodipine Besylate (Norvasc -) 10 mg PO DAILY [facility] Atorvastatin Calcium (Lipitor -) 10 mg PO HS [facility] Clindamycin HCl (Cleocin -) 300 mg PO Q6HPO [facility] Last Admin: 08/03/18 11:53 Dose: 300 mg Clopidogrel Bisulfate (Plavix -) 75 mg PO DAILY [facility] Sodium Chloride (Normal Saline -) 250 mls @ 3,000 mls/hr IV PRN PRN PRN Reason: Hypotension during Dialysis Piperacillin Sod/Tazobactam (Sod 2.25 gm/ Dextrose) 50 mls @ 100 mls/hr IVPB Q8H-IV NOE; Protocol Labetalol HCl (Normodyne -) 300 mg PO BID [facility] Oxycodone HCl (Roxicodone -) 5 mg PO Q4H PRN PRN Reason: PAIN LEVEL 6-10 Last Admin: 08/03/18 11:54 Dose: 5 mg Polyethylene Glycol (Miralax (For Daily Use) -) 17 gm PO BID [facility] Sevelamer Carbonate (Renvela -) 800 mg PO TIDCM [facility] Last Admin: 08/03/18 11:53 Dose: 800 mg - Objective Vital Signs: Vital Signs Temperature 97.7 F 08/03/18 12:30 Pulse Rate 71 08/03/18 12:30 Respiratory Rate 18 08/03/18 12:30 Blood Pressure 154/79 08/03/18 12:30 O2 Sat by Pulse Oximetry (%) 97 08/03/18 12:31 Constitutional: Yes: No Distress, Calm HENT: Yes: Atraumatic Neck: Yes: Supple, Trachea Midline Cardiovascular: Yes: Regular Rate and Rhythm Respiratory: Yes: Regular, CTA Bilaterally Gastrointestinal: Yes: Normal Bowel Sounds, Soft Musculoskeletal: Yes: WNL Extremities: Yes: Other Wound/Incision: Yes: Dressing Dry and Intact Labs: CBC, BMP 08/03/18 05:45 08/03/18 05:45 INR, PTT INR 1.18 (0.83-1.09) H 08/03/18 05:45 Assessment/Plan Problem List - Problems (1) gas gangrene of foot Code(s): A48.0 - GAS GANGRENE (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 - OTHER DISORDERS OF CALCIUM METABOLISM (3) Chronic kidney disease, stage 5, kidney failure Code(s): N18.5 - CHRONIC KIDNEY DISEASE, STAGE 5 (4) GERD (gastroesophageal reflux disease) Code(s): K21.9 - GASTRO-ESOPHAGEAL REFLUX DISEASE WITHOUT ESOPHAGITIS (5) Hyperlipidemia Code(s): E78.5 - HYPERLIPIDEMIA, UNSPECIFIED Qualifiers: Hyperlipidemia type: pure hypercholesterolemia Qualified Code(s): E78.00 - Pure hypercholesterolemia, unspecified; E78.0 - Pure hypercholesterolemia (6) Hypertension Code(s): I10 - ESSENTIAL (PRIMARY) HYPERTENSION Qualifiers: Hypertension type: essential hypertension Qualified Code(s): I10 - Essential (primary) hypertension (7) Osteoarthritis Code(s): M19.90 - UNSPECIFIED OSTEOARTHRITIS, UNSPECIFIED SITE (8) Rheumatoid arthritis involving both hips Code(s): M06.9 - RHEUMATOID ARTHRITIS, UNSPECIFIED (9) Hypokalemia Code(s): E87.6 - HYPOKALEMIA plan continue abx await for final plan wound care dialysis rest as per the team patient doing well will deescalate abx
--- NOTE | 2018-08-03 13:21 | OP ---
DATE OF OPERATION: 08/03/2018 SURGEON: Remi Paul DPM ASSISTANTS: Nael Ford DPM and Dr. Ailyn Portillo, PGY-3 PREOPERATIVE DIAGNOSIS: Left forefoot gangrene with osteomyelitis. POSTOPERATIVE DIAGNOSIS: Left forefoot gangrene with osteomyelitis. PROCEDURE: Amputation of left foot 3rd, 4th, and 5th toes; possible tarsometatarsal amputation. ANESTHESIA: Local with MAC. PATHOLOGY: Bone and soft tissue. ESTIMATED BLOOD LOSS: About 5 mL. HEMOSTASIS: None. MATERIALS USED: 3-0 nylon suture, 1/4-inch Iodoform packing, Xeroform, and postoperative dressing such as 4x4 sterile gauze, Kerlix, and Jonathan. INJECTABLES: 24 mL of a 1:1 mixture of 1% lidocaine plain and 0.5% Marcaine plain injected preoperatively and 4 mL of 1% lidocaine plain injected postoperatively. CONDITION OF PATIENT: Stable. COMPLICATIONS: None. DESCRIPTION: The patient was brought to the operating room and placed on the operating table in a supine position. Following IV sedation, local anesthesia was obtained using a 1:1 mixture of 1% lidocaine plain and 0.5% Marcaine plain preoperatively; 24 mL total was injected throughout the surgical site. The left foot was then scrubbed, prepped, and draped in the usual aseptic manner. Attention was first directed to the left foot 3rd and 4th and 5th toes. Using number-15 blade, a linear incision was made around the 3rd, 4th, and 5th toes and the toes were disarticulated at the metatarsophalangeal joint and the gangrenous toes were sent to Pathology. Next, the soft tissue on dorsal aspect of the 3rd, 4th, and 5th toes was assessed and appeared to be necrotic dorsally. At this time, using number-15 blade, an incision was made on the dorsal aspect all the way to the mid-foot, mid-shaft of the 3rd, 4th, and 5th metatarsals, and the plantar flap was preserved at the level of metatarsophalangeal joint. Using sagittal saw, the 3rd, 4th, 5th metatarsals were resected at the level of mid-shaft area and sent to Pathology. At this time, the remaining necrotic tissue was cleaned, and some bleeding noted at the remaining soft tissue. The plantar flap appeared to be healthy with viable tissue and some bleeding. At this time, the wound was irrigated with copious amount of normal saline with bacitracin in it and retention sutures applied using 3-0 nylon suture across the plantar flap with the dorsal incision, and the plantar flap was moved dorsally. Distally, the wound was packed with 1/4-inch Iodoform packing. Postoperative dressing was applied. Prior to that, 4 mL of 1% lidocaine plain was infiltrated throughout the surgical site, and postoperative dressing such as Xeroform, 4 x 4's, sterile gauze, Kerlix, and abdominal pad and Jonathan bandage applied. Patient tolerated the procedure and anesthesia well and was transferred to the postanesthesia care unit with vital signs stable and vascular status intact to the left lower extremity. Patient will be transferred to the floor and will be followed by Medicine and podiatry team. Ailyn Portillo, PGY-2 dictating for PATTIE Farah DPM [id number]
--- NOTE | 2018-08-03 15:55 | PN ---
Physical Exam: SUBJECTIVE: Patient seen and examined at bed side soon after her surgery. States she has not pain. Eating lunch. Denies chest pain, sob, cough , palpitation, abdominal pain, nausea or vomiting. No acute overnight events. OBJECTIVE: Vital Signs Period Temp Pulse Resp BP Sys/Jha Pulse Ox Last 24 Hr 97.4 F-98.3 F 66-73 15-21 120-162/60-79 95-100 GENERAL: Elderly female, is awake, alert, and fully oriented, in no acute distress. HEAD: Normal with no signs of trauma. EYES: EOM intact , pallor +, No icterus. ENT: Ears normal, moist mucous membranes. NECK: Supple. LUNGS: B.L Breath sounds equal, clear to auscultation bilaterally, no wheezes, no crackles, no accessory muscle use. HEART: Regular rate and rhythm, S1, S2 without murmur, rub or gallop. ABDOMEN: Soft, nontender, no organomegaly, BS + UPPER EXTREMITIES: Left upper forearm-fistula functioning, 2+ pulses, warm, well -perfused, no edema. LOWER EXTREMITIES: LEFT: dressing applied after the surgery. NEUROLOGICAL: No facial droop. Normal speech, gait not observed. PSYCH: Normal mood, normal affect. SKIN: Warm, dry, normal turgor, no rashes or lesions noted Laboratory Results - last 24 hr 08/02/18 08/02/18 08/03/18 17:15 20:48 05:10 WBC RBC Hgb Hct MCV MCH MCHC RDW Plt Count MPV Absolute Neuts (auto) Neutrophils % Lymphocytes % Monocytes % Eosinophils % Basophils % Nucleated RBC % PT with INR INR Sodium Potassium Chloride Carbon Dioxide Anion Gap BUN Creatinine Creat Clearance w eGFR POC Glucometer 134 164 96 Random Glucose Calcium Phosphorus Blood Type Antibody Screen 08/03/18 08/03/18 08/03/18 05:45 05:45 05:45 WBC 6.0 RBC 2.73 L Hgb 8.5 L Hct 26.5 L MCV 97.4 H MCH 31.1 MCHC 31.9 L RDW 18.7 H Plt Count 278 MPV 7.3 L Absolute Neuts (auto) 4.0 Neutrophils % 66.6 Lymphocytes % 17.7 Monocytes % 10.6 H Eosinophils % 4.0 D Basophils % 1.1 Nucleated RBC % 0 PT with INR 13.90 H INR 1.18 H Sodium 140 Potassium 4.3 Chloride 97 L Carbon Dioxide 34 H Anion Gap 9 BUN 17 Creatinine 3.1 H Creat Clearance w eGFR 14.53 POC Glucometer Random Glucose 86 Calcium 8.1 L Phosphorus 4.2 Blood Type Antibody Screen 08/03/18 05:45 WBC RBC Hgb Hct MCV MCH MCHC RDW Plt Count MPV Absolute Neuts (auto) Neutrophils % Lymphocytes % Monocytes % Eosinophils % Basophils % Nucleated RBC % PT with INR INR Sodium Potassium Chloride Carbon Dioxide Anion Gap BUN Creatinine Creat Clearance w eGFR POC Glucometer Random Glucose Calcium Phosphorus Blood Type AB POSITIVE Antibody Screen Negative Active Medications Generic Name Dose Route Start Last Admin Trade Name Freq PRN Reason Stop Dose Admin Acetaminophen 650 mg 08/03/18 11:00 Tylenol - PO Q4H PRN FEVER Amlodipine Besylate 10 mg 08/04/18 10:00 Norvasc - PO DAILY NOE Atorvastatin Calcium 10 mg 08/03/18 22:00 Lipitor - PO HS NOE Clindamycin HCl 300 mg 08/03/18 12:00 08/03/18 11:53 Cleocin - PO 300 mg Q6HPO NOE Administration Clopidogrel Bisulfate 75 mg 08/04/18 10:00 Plavix - PO DAILY [facility] Sodium Chloride 250 mls @ 3,000 mls/hr 08/03/18 11:00 Normal Saline - IV PRN PRN Hypotension during Dialysis Piperacillin Sod/Tazobactam 50 mls @ 100 mls/hr 08/03/18 18:00 Sod 2.25 gm/ Dextrose IVPB Q8H-IV [facility] Protocol Labetalol HCl 300 mg 08/03/18 22:00 Normodyne - PO BID [facility] Oxycodone HCl 5 mg 08/03/18 11:00 08/03/18 11:54 Roxicodone - PO 5 mg Q4H PRN Administration PAIN LEVEL 6-10 Polyethylene Glycol 17 gm 08/03/18 22:00 Miralax (For Daily Use) - PO BID [facility] Sevelamer Carbonate 800 mg 08/03/18 12:00 08/03/18 11:53 Renvela - PO 800 mg TIDCM NOE Administration ASSESSMENT/PLAN: Lower ext CT 07/18/18 shows Air/Gas accumulation is seen within the soft tissues surrounding the fourth toe consistent with gas forming infection Stress test done 07/23: Overall negative pharmacologic stress test. EF 87 % Patient is a 77 year old female PMHx of ESRD (T,Th,S), DM, HTN, HLD, admitted with Left 4th toe wound and pain for a month. 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 Continue Diabetic/sodium controlled diet. # Hypertension Started on Amlodipine 10mg daily since 07/31 due to HTN. Started Labetolol 300 mg PO Daily today # Normocytic anemia likely from ESRD # Leukocytosis resolved # ESRD (TTS) HD as per nephro Continue Sevelamer 800 mg PO TID Avoid nephrotoxic drugs Fluid restriction 1.2L/day # Hyperlipidemia Continue Statin 10mg # FEN Not on IV fluids, can tolerate PO. Electrolytes WNl Sodium/Diabetic diet # Prophylaxis For DVT: Heparin on hold, restart as per surgeon. For GI: Not indicated # Code Status: Full Code # Dispo: Admitted in Med-Surg. Illness, Investigation and Plan of care explained to the patient. She verbalized understanding. Case discussed with Dr. Shaw. Problem List - Problems (1) Chronic kidney disease, stage 5, kidney failure Code(s): N18.5 - CHRONIC KIDNEY DISEASE, STAGE 5 (2) DVT prophylaxis Code(s): MIV9005 - (3) Foot ulcer Code(s): L97.509 - NON-PRESSURE CHRONIC ULCER OTH PRT UNSP FOOT W UNSP SEVERITY Qualifiers: Laterality: left Non-pressure ulcer stage: unspecified non-pressure ulcer stage Qualified Code(s): L97.529 - Non-pressure chronic ulcer of other part of left foot with unspecified severity (4) Gas gangrene of foot Code(s): A48.0 - GAS GANGRENE (5) Hypokalemia Code(s): E87.6 - HYPOKALEMIA (6) ESRD (end stage renal disease) Code(s): N18.6 - END STAGE RENAL DISEASE Visit type - Emergency Visit Emergency Visit: Yes ED Registration Date: 07/18/18 Care time: The patient presented to the Emergency Department on the above date and was hospitalized for further evaluation of their emergent condition. - New Patient This patient is new to me today: No - Critical Care Critical Care patient: No - Discharge Referral Referred to [facility] Med [facility] No
--- NOTE | 2018-08-03 17:22 | PN ---
Teaching Attending Note Name of Resident: Pati Salazar ATTENDING PHYSICIAN STATEMENT I saw and evaluated the patient. I reviewed the resident's note and discussed the case with the resident. I agree with the resident's findings and plan as documented. SUBJECTIVE: Ms Crain is without complaint. Denies cp, sob, n/v. 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 - OTHER DISORDERS OF CALCIUM METABOLISM (3) Chronic kidney disease, stage 5, kidney failure Code(s): N18.5 - CHRONIC KIDNEY DISEASE, STAGE 5 (4) GERD (gastroesophageal reflux disease) Code(s): K21.9 - GASTRO-ESOPHAGEAL REFLUX DISEASE WITHOUT ESOPHAGITIS (5) Hyperlipidemia Code(s): E78.5 - HYPERLIPIDEMIA, UNSPECIFIED Qualifiers: Hyperlipidemia type: pure hypercholesterolemia Qualified Code(s): E78.00 - Pure hypercholesterolemia, unspecified; E78.0 - Pure hypercholesterolemia (6) Hypertension Code(s): I10 - ESSENTIAL (PRIMARY) HYPERTENSION Qualifiers: Hypertension type: essential hypertension Qualified Code(s): I10 - Essential (primary) hypertension (7) Hypokalemia Code(s): E87.6 - HYPOKALEMIA
[2018-08-03] MEDS: ACETAMINOPHEN 325 MG TABLET (FP) PO PRN (20:00)
[2018-08-03] MEDS: POLYETHYLENE GLYCOL 3350 119 GM BTL PO SCH ×2 (20:23→22:13)
[2018-08-03] MEDS: LABETALOL HCL 100 MG TABLET (FP) PO SCH ×2 (20:24→22:12)
[2018-08-03] MEDS: CLOPIDOGREL BISULFATE 75 MG TABLET (FP) PO SCH (20:24)
[2018-08-03] MEDS: amLODIPine BESYLATE 10 MG TABLET (FP) PO SCH (20:24)
[2018-08-03] MEDS: ATORVASTATIN CA 10 MG TABLET (FP) PO SCH (22:12)
[2018-08-04] MEDS: oxyCODONE HCL 5 MG TABLET PO PRN ×5 (00:25→23:31)
[2018-08-04] MEDS: CLINDAMYCIN HCL 150 MG CAPSULE (FP) PO SCH ×5 (00:25→23:32)
[2018-08-04] MEDS ORDERED: PIPERACILLIN/TAZOBACTAM 2.25 GM VIAL IVPB ONE ×3 (00:28→16:49)
[2018-08-04] MEDS ORDERED: DEXTROSE 5%-WATER - 50 ML IVPB ONE ×3 (00:29→16:49)
[2018-08-04] MEDS: PIPERACILLIN/TAZOB 2.25 GM 2.25 GM in DEXTROSE 5%-WATER - 50 ML IVPB SCH ×3 (01:12→18:37)
[2018-08-04] MEDS ORDERED: SODIUM CHLORIDE 250 ML IV PRN (07:46)
[2018-08-04 08:24] LABS: HEMATOCRIT 26.1 % (32.4-45.2); HEMOGLOBIN 8.3 GM/dL (10.7-15.3); MCH 31.2 pg (25.7-33.7); MCHC 31.6 g/dl (32.0-36.0); MEAN CELL VOLUME 98.7 fl (80-96); MEAN PLT VOLUME 7.1 fl (7.5-11.1); PLATELET COUNT 268 K/MM3 (134-434); RBC 2.64 M/mm3 (3.60-5.2); RDW 18.7 % (11.6-15.6); WHITE BLOOD COUNT 8.1 K/mm3 (4.0-10.0)
[2018-08-04] MEDS: ACETAMINOPHEN 325 MG TABLET (FP) PO PRN (08:50)
[2018-08-04 08:52] LABS: ANION GAP 8 MMOL/L (8-16); BLOOD UREA NITROGEN 25 mg/dL (7-18); CALCIUM 8.2 mg/dL (8.5-10.1); CHLORIDE 98 mmol/L (98-107); CO2 31 mmol/L (21-32); CREATININE 4.3 mg/dL (0.55-1.3); GLUCOSE,RANDOM 97 mg/dL (74-106); POTASSIUM 4.2 mmol/L (3.5-5.1); SODIUM 137 mmol/L (136-145)
--- NOTE | 2018-08-04 09:50 | PN ---
Progress Note, Physician Chief Complaint: day 1 s/p TMA under MAC - Current Medication List Current Medications: Active Medications Acetaminophen (Tylenol -) 650 mg PO Q4H PRN PRN Reason: FEVER Last Admin: 08/04/18 08:50 Dose: 650 mg Amlodipine Besylate (Norvasc -) 10 mg PO DAILY [facility] Atorvastatin Calcium (Lipitor -) 10 mg PO HS [facility] Last Admin: 08/03/18 22:12 Dose: 10 mg Clindamycin HCl (Cleocin -) 300 mg PO Q6HPO [facility] Last Admin: 08/04/18 05:38 Dose: 300 mg Clopidogrel Bisulfate (Plavix -) 75 mg PO DAILY [facility] Epoetin Kin (Epogen -) 20,000 unit IVPUSH ONCE ONE Stop: 08/04/18 07:47 Sodium Chloride (Normal Saline -) 250 mls @ 3,000 mls/hr IV PRN PRN PRN Reason: Hypotension during Dialysis Piperacillin Sod/Tazobactam (Sod 2.25 gm/ Dextrose) 50 mls @ 100 mls/hr IVPB Q8H-IV NOE; Protocol Last Admin: 08/04/18 01:12 Dose: 100 mls/hr Sodium Chloride (Normal Saline -) 250 mls @ 3,000 mls/hr IV PRN PRN PRN Reason: Hypotension during Dialysis Stop: 08/05/18 07:46 Labetalol HCl (Normodyne -) 300 mg PO BID [facility] Last Admin: 08/03/18 22:12 Dose: 300 mg Oxycodone HCl (Roxicodone -) 5 mg PO Q4H PRN PRN Reason: PAIN LEVEL 6-10 Last Admin: 08/04/18 05:38 Dose: 5 mg Polyethylene Glycol (Miralax (For Daily Use) -) 17 gm PO BID [facility] Last Admin: 08/03/18 22:13 Dose: 17 gm Sevelamer Carbonate (Renvela -) 800 mg PO TIDCM [facility] Last Admin: 08/03/18 17:18 Dose: 800 mg - Objective Vital Signs: Vital Signs Temperature 98.1 F 08/04/18 07:52 Pulse Rate 78 08/04/18 07:52 Respiratory Rate 19 08/04/18 07:52 Blood Pressure 150/90 08/04/18 07:52 O2 Sat by Pulse Oximetry (%) 100 08/03/18 21:00 Labs: CBC, BMP 08/04/18 07:15 08/04/18 07:15 INR, PTT INR 1.18 (0.83-1.09) H 08/03/18 05:45 Assessment/Plan doing well after ankle block/MAC for TMA. No issues/complications from anesthetic
[2018-08-04] MEDS: amLODIPine BESYLATE 10 MG TABLET (FP) PO SCH (10:06)
[2018-08-04] MEDS: SEVELAMER CARBONATE 800 MG TAB (FP) PO SCH ×3 (10:06→16:59)
[2018-08-04] MEDS ORDERED: EPOETIN ALFA 20,000 UNIT/1 ML VIAL IVPUSH ONE (10:30)
[2018-08-04] MEDS: LABETALOL HCL 100 MG TABLET (FP) PO SCH ×2 (10:34→22:24)
--- NOTE | 2018-08-04 12:58 | PN ---
Progress Note, Physician Chief Complaint: Ms Crain is without complaint. No cp, sob, n/v. - Current Medication List Current Medications: Active Medications Acetaminophen (Tylenol -) 650 mg PO Q4H PRN PRN Reason: FEVER Last Admin: 08/04/18 08:50 Dose: 650 mg Amlodipine Besylate (Norvasc -) 10 mg PO DAILY [facility] BEDS AT [facility] Last Admin: 08/04/18 10:06 Dose: 10 mg Atorvastatin Calcium (Lipitor -) 10 mg PO HS [facility] 234 BEDS AT [facility] Last Admin: 08/03/18 22:12 Dose: 10 mg Clindamycin HCl (Cleocin -) 300 mg PO Q6HPO [facility] 234 BEDS AT [facility] Last Admin: 08/04/18 05:38 Dose: 300 mg Clopidogrel Bisulfate (Plavix -) 75 mg PO DAILY [facility] 234 BEDS AT [facility] Piperacillin Sod/Tazobactam (Sod 2.25 gm/ Dextrose) 50 mls @ 100 mls/hr IVPB Q8H-IV [facility]; Protocol Last Admin: 08/04/18 01:12 Dose: 100 mls/hr Sodium Chloride (Normal Saline -) 250 mls @ 3,000 mls/hr IV PRN PRN PRN Reason: Hypotension during Dialysis Stop: 08/05/18 07:46 Labetalol HCl (Normodyne -) 300 mg PO BID [facility] 234 BEDS [facility] Last Admin: 08/04/18 10:34 Dose: 300 mg Oxycodone HCl (Roxicodone -) 5 mg PO Q4H PRN PRN Reason: PAIN LEVEL 6-10 Last Admin: 08/04/18 10:09 Dose: 5 mg Polyethylene Glycol (Miralax (For Daily Use) -) 17 gm PO BID [facility] BEDS [facility] Last Admin: 08/03/18 22:13 Dose: 17 gm Sevelamer Carbonate (Renvela -) 800 mg PO TIDCM [facility] 234 BEDS AT [facility] Last Admin: 08/04/18 10:06 Dose: 800 mg - Objective Vital Signs: Vital Signs Temperature 36.6 C 08/04/18 08:45 Pulse Rate 71 08/04/18 10:30 Respiratory Rate 18 08/04/18 10:30 Blood Pressure 195/94 H 08/04/18 10:30 O2 Sat by Pulse Oximetry (%) 100 08/04/18 09:00 Constitutional: Yes: Well Nourished, No Distress, Calm Cardiovascular: Yes: Regular Rate and Rhythm. No: Gallop, Murmur, Rub Respiratory: Yes: Regular, CTA Bilaterally. No: Rales, Rhonchi, Wheezes Gastrointestinal: Yes: Normal Bowel Sounds, Soft. 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 - OTHER DISORDERS OF CALCIUM METABOLISM (3) Chronic kidney disease, stage 5, kidney failure Code(s): N18.5 - CHRONIC KIDNEY DISEASE, STAGE 5 (4) GERD (gastroesophageal reflux disease) Code(s): K21.9 - GASTRO-ESOPHAGEAL REFLUX DISEASE WITHOUT ESOPHAGITIS (5) Hyperlipidemia Code(s): E78.5 - HYPERLIPIDEMIA, UNSPECIFIED Qualifiers: Hyperlipidemia type: pure hypercholesterolemia Qualified Code(s): E78.00 - Pure hypercholesterolemia, unspecified; E78.0 - Pure hypercholesterolemia (6) Hypertension Code(s): I10 - ESSENTIAL (PRIMARY) HYPERTENSION Qualifiers: Hypertension type: essential hypertension Qualified Code(s): I10 - Essential (primary) hypertension (7) Hypokalemia Code(s): E87.6 - HYPOKALEMIA Assessment/Plan (1) Gas gangrene of foot Assessment/Plan: -s/p amputation -case d/w ID -stop abx tomorrow -plavix restarted -PT evaluation Code(s): A48.0 - GAS GANGRENE (2) Calciphylaxis Assessment/Plan: -noted -nephrology following Code(s): E83.59 - OTHER DISORDERS OF CALCIUM METABOLISM (3) Chronic kidney disease, stage 5, kidney failure Assessment/Plan: -nephrology following -continue HD, received HD today Code(s): N18.5 - CHRONIC KIDNEY DISEASE, STAGE 5 (4) GERD (gastroesophageal reflux disease) Assessment/Plan: -controlled Code(s): K21.9 - GASTRO-ESOPHAGEAL REFLUX DISEASE WITHOUT ESOPHAGITIS (5) Hyperlipidemia Assessment/Plan: -continue lipitor Code(s): E78.5 - HYPERLIPIDEMIA, UNSPECIFIED Qualifiers: Hyperlipidemia type: pure hypercholesterolemia Qualified Code(s): E78.00 - Pure hypercholesterolemia, unspecified; E78.0 - Pure hypercholesterolemia (6) Hypertension Assessment/Plan: -continue current regimen Code(s): I10 - ESSENTIAL (PRIMARY) HYPERTENSION Qualifiers: Hypertension type: essential hypertension Qualified Code(s): I10 - Essential (primary) hypertension (7) Hypokalemia Assessment/Plan: -resolved Code(s): E87.6 - HYPOKALEMIA
[2018-08-04] MEDS: POLYETHYLENE GLYCOL 3350 119 GM BTL PO SCH ×2 (13:26→22:24)
[2018-08-04] MEDS: CLOPIDOGREL BISULFATE 75 MG TABLET (FP) PO SCH (13:30)
--- NOTE | 2018-08-04 13:41 | PN ---
Progress Note (short form) - Note Progress Note: Renal follow up for ESRD on HD Pt seen and examined during dialysis. tolearting HD well access with good flow BP ok Vital Signs Temperature 97.8 F 08/04/18 13:18 Pulse Rate 73 08/04/18 13:18 Respiratory Rate 18 08/04/18 13:18 Blood Pressure 156/71 08/04/18 13:18 O2 Sat by Pulse Oximetry (%) 100 08/04/18 09:00 NAD awake and alert neck supple foot in dressing CBC, BMP 08/04/18 07:15 08/04/18 07:15 Current Medications Acetaminophen (Tylenol -) 650 mg PO Q4H PRN PRN Reason: FEVER Last Admin: 08/04/18 08:50 Dose: 650 mg Amlodipine Besylate (Norvasc -) 10 mg PO DAILY [facility] Last Admin: 08/04/18 10:06 Dose: 10 mg Atorvastatin Calcium (Lipitor -) 10 mg PO HS [facility] Last Admin: 08/03/18 22:12 Dose: 10 mg Clindamycin HCl (Cleocin -) 300 mg PO Q6HPO NOE Last Admin: 08/04/18 13:29 Dose: 300 mg Clopidogrel Bisulfate (Plavix -) 75 mg PO DAILY [facility] Last Admin: 08/04/18 13:30 Dose: 75 mg Piperacillin Sod/Tazobactam (Sod 2.25 gm/ Dextrose) 50 mls @ 100 mls/hr IVPB Q8H-IV NOE; Protocol Last Admin: 08/04/18 13:30 Dose: 100 mls/hr Sodium Chloride (Normal Saline -) 250 mls @ 3,000 mls/hr IV PRN PRN PRN Reason: Hypotension during Dialysis Stop: 08/05/18 07:46 Labetalol HCl (Normodyne -) 300 mg PO BID [facility] Last Admin: 08/04/18 10:34 Dose: 300 mg Oxycodone HCl (Roxicodone -) 5 mg PO Q4H PRN PRN Reason: PAIN LEVEL 6-10 Last Admin: 08/04/18 10:09 Dose: 5 mg Polyethylene Glycol (Miralax (For Daily Use) -) 17 gm PO BID NOE Last Admin: 08/04/18 13:26 Dose: 17 gm Sevelamer Carbonate (Renvela -) 800 mg PO TIDCM [facility] Last Admin: 08/04/18 13:29 Dose: 800 mg 77 year old AA woman with hx of ESRD on HD, DM, hypertension who presented with worsening infection of her foot #Gangrene of LE #arterial insufficiency of LE #ESRD on HD #DM #Anemia #Renal Osteodystrophy tolerating HD well pain control as needed will continue HD 3x weekly continue abx as per ELLI Smith DO
--- NOTE | 2018-08-04 13:54 | PN ---
Progress Note, Physician History of Present Illness: stable no new issues post op doing well - Current Medication List Current Medications: Active Medications Acetaminophen (Tylenol -) 650 mg PO Q4H PRN PRN Reason: FEVER Last Admin: 08/04/18 08:50 Dose: 650 mg Amlodipine Besylate (Norvasc -) 10 mg PO DAILY [facility] Last Admin: 08/04/18 10:06 Dose: 10 mg Atorvastatin Calcium (Lipitor -) 10 mg PO HS [facility] Last Admin: 08/03/18 22:12 Dose: 10 mg Clindamycin HCl (Cleocin -) 300 mg PO Q6HPO [facility] Last Admin: 08/04/18 13:29 Dose: 300 mg Clopidogrel Bisulfate (Plavix -) 75 mg PO DAILY [facility] Last Admin: 08/04/18 13:30 Dose: 75 mg Piperacillin Sod/Tazobactam (Sod 2.25 gm/ Dextrose) 50 mls @ 100 mls/hr IVPB Q8H-IV NOE; Protocol Last Admin: 08/04/18 13:30 Dose: 100 mls/hr Sodium Chloride (Normal Saline -) 250 mls @ 3,000 mls/hr IV PRN PRN PRN Reason: Hypotension during Dialysis Stop: 08/05/18 07:46 Labetalol HCl (Normodyne -) 300 mg PO BID [facility] Last Admin: 08/04/18 10:34 Dose: 300 mg Oxycodone HCl (Roxicodone -) 5 mg PO Q4H PRN PRN Reason: PAIN LEVEL 6-10 Last Admin: 08/04/18 10:09 Dose: 5 mg Polyethylene Glycol (Miralax (For Daily Use) -) 17 gm PO BID [facility] Last Admin: 08/04/18 13:26 Dose: 17 gm Sevelamer Carbonate (Renvela -) 800 mg PO TIDCM [facility] Last Admin: 08/04/18 13:29 Dose: 800 mg - Objective Vital Signs: Vital Signs Temperature 97.8 F 08/04/18 13:18 Pulse Rate 73 08/04/18 13:18 Respiratory Rate 18 08/04/18 13:18 Blood Pressure 156/71 08/04/18 13:18 O2 Sat by Pulse Oximetry (%) 100 08/04/18 09:00 Constitutional: Yes: No Distress, Calm, Obese Cardiovascular: Yes: S1, S2 Respiratory: Yes: Regular, CTA Bilaterally Gastrointestinal: Yes: Normal Bowel Sounds, Soft Musculoskeletal: Yes: WNL Extremities: Yes: Other Wound/Incision: Yes: Other Neurological: Yes: Alert, Oriented Psychiatric: Yes: Alert, Oriented Labs: CBC, BMP 08/04/18 07:15 08/04/18 07:15 INR, PTT INR 1.18 (0.83-1.09) H 08/03/18 05:45 Assessment/Plan Problem List - Problems (1) gas gangrene of foot Code(s): A48.0 - GAS GANGRENE (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 - OTHER DISORDERS OF CALCIUM METABOLISM (3) Chronic kidney disease, stage 5, kidney failure Code(s): N18.5 - CHRONIC KIDNEY DISEASE, STAGE 5 (4) GERD (gastroesophageal reflux disease) Code(s): K21.9 - GASTRO-ESOPHAGEAL REFLUX DISEASE WITHOUT ESOPHAGITIS (5) Hyperlipidemia Code(s): E78.5 - HYPERLIPIDEMIA, UNSPECIFIED Qualifiers: Hyperlipidemia type: pure hypercholesterolemia Qualified Code(s): E78.00 - Pure hypercholesterolemia, unspecified; E78.0 - Pure hypercholesterolemia (6) Hypertension Code(s): I10 - ESSENTIAL (PRIMARY) HYPERTENSION Qualifiers: Hypertension type: essential hypertension Qualified Code(s): I10 - Essential (primary) hypertension (7) Osteoarthritis Code(s): M19.90 - UNSPECIFIED OSTEOARTHRITIS, UNSPECIFIED SITE (8) Rheumatoid arthritis involving both hips Code(s): M06.9 - RHEUMATOID ARTHRITIS, UNSPECIFIED (9) Hypokalemia Code(s): E87.6 - HYPOKALEMIA plan can stop abx tomorrow wound care dialysis rest as per the team final plan awaited
[2018-08-04] MEDS: ATORVASTATIN CA 10 MG TABLET (FP) PO SCH (22:24)
[2018-08-05] MEDS ORDERED: PIPERACILLIN/TAZOBACTAM 2.25 GM VIAL IVPB ONE ×2 (01:47→09:38)
[2018-08-05] MEDS ORDERED: DEXTROSE 5%-WATER - 50 ML IVPB ONE ×2 (01:47→09:38)
[2018-08-05] MEDS: PIPERACILLIN/TAZOB 2.25 GM 2.25 GM in DEXTROSE 5%-WATER - 50 ML IVPB SCH ×2 (01:58→10:06)
[2018-08-05] MEDS: CLINDAMYCIN HCL 150 MG CAPSULE (FP) PO SCH ×2 (06:01→12:02)
[2018-08-05 07:48] LABS: BASO % 1.2 % (0-2.0); HEMATOCRIT 28.1 % (32.4-45.2); HEMOGLOBIN 9.6 GM/dL (10.7-15.3); LYMPH % 11.2 % (8-40); MCH 33.1 pg (25.7-33.7); MCHC 34.2 g/dl (32.0-36.0); MEAN CELL VOLUME 96.8 fl (80-96); MEAN PLT VOLUME 7.8 fl (7.5-11.1); MONO % 9.1 % (3.8-10.2); NEUT % 72.5 % (42.8-82.8); PLATELET COUNT 303 K/MM3 (134-434); RDW 18.4 % (11.6-15.6); WHITE BLOOD COUNT 8.9 K/mm3 (4.0-10.0)
[2018-08-05] MEDS: SEVELAMER CARBONATE 800 MG TAB (FP) PO SCH ×3 (08:31→18:00)
[2018-08-05] MEDS: oxyCODONE HCL 5 MG TABLET PO PRN ×2 (08:31→20:57)
[2018-08-05 08:34] LABS: ANION GAP 11 MMOL/L (8-16); BLOOD UREA NITROGEN 12 mg/dL (7-18); CALCIUM 8.9 mg/dL (8.5-10.1); CHLORIDE 94 mmol/L (98-107); CO2 30 mmol/L (21-32); GLUCOSE,RANDOM 82 mg/dL (74-106); MAGNESIUM 2.1 mg/dL (1.8-2.4); PHOSPHOROUS 3.9 mg/dL (2.5-4.9); POTASSIUM 3.8 mmol/L (3.5-5.1); SODIUM 136 mmol/L (136-145)
[2018-08-05] MEDS: ACETAMINOPHEN 325 MG TABLET (FP) PO PRN ×2 (10:05→20:31)
[2018-08-05] MEDS: POLYETHYLENE GLYCOL 3350 119 GM BTL PO SCH ×2 (10:06→22:32)
[2018-08-05] MEDS: amLODIPine BESYLATE 10 MG TABLET (FP) PO SCH (10:06)
[2018-08-05] MEDS: LABETALOL HCL 100 MG TABLET (FP) PO SCH ×2 (10:06→22:32)
[2018-08-05] MEDS: CLOPIDOGREL BISULFATE 75 MG TABLET (FP) PO SCH (10:06)
--- NOTE | 2018-08-05 11:06 | PN ---
Progress Note (short form) - Note Progress Note: History of Present Illness: no chest pain, palps, dizziness, lightheadedness, sob Current Medications Generic Name Dose Route Start Last Admin Trade Name Freq PRN Reason Stop Dose Admin Acetaminophen 650 mg 08/03/18 11:00 08/05/18 10:05 Tylenol - PO 650 mg Q4H PRN Administration FEVER Amlodipine Besylate 10 mg 08/04/18 10:00 08/05/18 10:06 Norvasc - PO 10 mg DAILY NOE Administration Atorvastatin Calcium 10 mg 08/03/18 22:00 08/04/18 22:24 Lipitor - PO 10 mg HS NOE Administration Clindamycin HCl 300 mg 08/03/18 12:00 08/05/18 06:01 Cleocin - PO 300 mg Q6HPO NOE Administration Clopidogrel Bisulfate 75 mg 08/04/18 10:00 08/05/18 10:06 Plavix - PO 75 mg DAILY NOE Administration Piperacillin Sod/Tazobactam 50 mls @ 100 mls/hr 08/03/18 18:00 08/05/18 10:06 Sod 2.25 gm/ Dextrose IVPB 100 mls/hr Q8H-IV NOE Administration Protocol Labetalol HCl 300 mg 08/03/18 22:00 08/05/18 10:06 Normodyne - PO 300 mg BID NOE Administration Oxycodone HCl 5 mg 08/03/18 11:00 08/05/18 08:31 Roxicodone - PO 5 mg Q4H PRN Administration PAIN LEVEL 6-10 Polyethylene Glycol 17 gm 08/03/18 22:00 08/05/18 10:06 Miralax (For Daily Use) - PO 17 gm BID NOE Administration Sevelamer Carbonate 800 mg 08/03/18 12:00 08/05/18 08:31 Renvela - PO 800 mg TIDCM NOE Administration Vital Signs Period Temp Pulse Resp BP Sys/Jha Pulse Ox Last 24 Hr 97.5 F-98.6 F 68-80 18-20 107-179/57-97 100 nad no jvd rrr s1s2 no mrg cta bl nl eff aaox3 no le edema abd nt nd pos bs no jaundice diaphoresis CBC, BMP 08/05/18 06:45 08/05/18 06:45 echo 07/2018 severe conc LVH, nl LVfunction, mild MR, mild AR mibi 07/2018 mod zone of inferolateral fixed defect c/w diaphragmatic attenuation, EF 87% Assessment/Plan 77 yo A female with ESRD on HD, NIDDM, HTN and HPL now admitted with gangrenous left 4th toe that will require a peripheral angiogram with possible BKA. Left toe gangrene: -s/p TMA 08/03 -Abx completed HTN -controlled HPL -Stable on low intensity statin ESRD -HD as per renal
--- NOTE | 2018-08-05 13:19 | PN ---
Progress Note (short form) - Note Progress Note: POD#2 vss, Tmax 98.7 +packing intact, +retention sutures in place, -drainage, -mal odor PVD POD#2 Packing pulled. Betadine dressing change. Will follow. Betadine dressing change daily. May be dc from Podiatry standpoint.
--- NOTE | 2018-08-05 13:25 | PN ---
Progress Note, Physician Chief Complaint: Ms Crain is without complaint. No cp, sob, n/v. - Current Medication List Current Medications: Active Medications Acetaminophen (Tylenol -) 650 mg PO Q4H PRN PRN Reason: FEVER Last Admin: 08/05/18 10:05 Dose: 650 mg Amlodipine Besylate (Norvasc -) 10 mg PO DAILY [facility] Last Admin: 08/05/18 10:06 Dose: 10 mg Atorvastatin Calcium (Lipitor -) 10 mg PO HS [facility] Last Admin: 08/04/18 22:24 Dose: 10 mg Clindamycin HCl (Cleocin -) 300 mg PO Q6HPO [facility] Last Admin: 08/05/18 12:02 Dose: 300 mg Clopidogrel Bisulfate (Plavix -) 75 mg PO DAILY [facility] Last Admin: 08/05/18 10:06 Dose: 75 mg Piperacillin Sod/Tazobactam (Sod 2.25 gm/ Dextrose) 50 mls @ 100 mls/hr IVPB Q8H-IV [facility]; Protocol Last Admin: 08/05/18 10:06 Dose: 100 mls/hr Labetalol HCl (Normodyne -) 300 mg PO BID [facility] Last Admin: 08/05/18 10:06 Dose: 300 mg Oxycodone HCl (Roxicodone -) 5 mg PO Q4H PRN PRN Reason: PAIN LEVEL 6-10 Last Admin: 08/05/18 08:31 Dose: 5 mg Polyethylene Glycol (Miralax (For Daily Use) -) 17 gm PO BID [facility] Last Admin: 08/05/18 10:06 Dose: 17 gm Sevelamer Carbonate (Renvela -) 800 mg PO TIDCM [facility] Last Admin: 08/05/18 12:02 Dose: 800 mg - Objective Vital Signs: Vital Signs Temperature 36.4 C L 08/05/18 07:00 Pulse Rate 80 08/05/18 07:00 Respiratory Rate 20 08/05/18 07:00 Blood Pressure 161/66 08/05/18 07:00 O2 Sat by Pulse Oximetry (%) 100 08/04/18 21:00 Constitutional: Yes: Well Nourished, No Distress, Calm Cardiovascular: Yes: Regular Rate and Rhythm. No: Gallop, Murmur, Rub Respiratory: Yes: Regular, CTA Bilaterally. No: Rales, Rhonchi, Wheezes Gastrointestinal: Yes: Normal Bowel Sounds, Soft. 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 - OTHER DISORDERS OF CALCIUM METABOLISM (3) Chronic kidney disease, stage 5, kidney failure Code(s): N18.5 - CHRONIC KIDNEY DISEASE, STAGE 5 (4) GERD (gastroesophageal reflux disease) Code(s): K21.9 - GASTRO-ESOPHAGEAL REFLUX DISEASE WITHOUT ESOPHAGITIS (5) Hyperlipidemia Code(s): E78.5 - HYPERLIPIDEMIA, UNSPECIFIED Qualifiers: Hyperlipidemia type: pure hypercholesterolemia Qualified Code(s): E78.00 - Pure hypercholesterolemia, unspecified; E78.0 - Pure hypercholesterolemia (6) Hypertension Code(s): I10 - ESSENTIAL (PRIMARY) HYPERTENSION Qualifiers: Hypertension type: essential hypertension Qualified Code(s): I10 - Essential (primary) hypertension (7) Hypokalemia Code(s): E87.6 - HYPOKALEMIA Assessment/Plan (1) Gas gangrene of foot Assessment/Plan: -plan for discharge tomorrow to [facility] Code(s): A48.0 - GAS GANGRENE (2) Calciphylaxis Assessment/Plan: -noted -nephrology following Code(s): E83.59 - OTHER DISORDERS OF CALCIUM METABOLISM (3) Chronic kidney disease, stage 5, kidney failure Assessment/Plan: -nephrology following -continue HD Code(s): N18.5 - CHRONIC KIDNEY DISEASE, STAGE 5 (4) GERD (gastroesophageal reflux disease) Assessment/Plan: -controlled Code(s): K21.9 - GASTRO-ESOPHAGEAL REFLUX DISEASE WITHOUT ESOPHAGITIS (5) Hyperlipidemia Assessment/Plan: -continue lipitor Code(s): E78.5 - HYPERLIPIDEMIA, UNSPECIFIED Qualifiers: Hyperlipidemia type: pure hypercholesterolemia Qualified Code(s): E78.00 - Pure hypercholesterolemia, unspecified; E78.0 - Pure hypercholesterolemia (6) Hypertension Assessment/Plan: -continue current regimen Code(s): I10 - ESSENTIAL (PRIMARY) HYPERTENSION Qualifiers: Hypertension type: essential hypertension Qualified Code(s): I10 - Essential (primary) hypertension (7) Hypokalemia Assessment/Plan: -resolved Code(s): E87.6 - HYPOKALEMIA
--- NOTE | 2018-08-05 15:15 | PN ---
Progress Note, Physician History of Present Illness: stable no issues - Current Medication List Current Medications: Active Medications Acetaminophen (Tylenol -) 650 mg PO Q4H PRN PRN Reason: FEVER Last Admin: 08/05/18 10:05 Dose: 650 mg Amlodipine Besylate (Norvasc -) 10 mg PO DAILY [facility] Last Admin: 08/05/18 10:06 Dose: 10 mg Atorvastatin Calcium (Lipitor -) 10 mg PO HS [facility] Last Admin: 08/04/18 22:24 Dose: 10 mg Clindamycin HCl (Cleocin -) 300 mg PO Q6HPO [facility] Last Admin: 08/05/18 12:02 Dose: 300 mg Clopidogrel Bisulfate (Plavix -) 75 mg PO DAILY [facility] Last Admin: 08/05/18 10:06 Dose: 75 mg Piperacillin Sod/Tazobactam (Sod 2.25 gm/ Dextrose) 50 mls @ 100 mls/hr IVPB Q8H-IV [facility]; Protocol Last Admin: 08/05/18 10:06 Dose: 100 mls/hr Labetalol HCl (Normodyne -) 300 mg PO BID [facility] Last Admin: 08/05/18 10:06 Dose: 300 mg Oxycodone HCl (Roxicodone -) 5 mg PO Q4H PRN PRN Reason: PAIN LEVEL 6-10 Last Admin: 08/05/18 08:31 Dose: 5 mg Polyethylene Glycol (Miralax (For Daily Use) -) 17 gm PO BID [facility] Last Admin: 08/05/18 10:06 Dose: 17 gm Sevelamer Carbonate (Renvela -) 800 mg PO TIDCM [facility] Last Admin: 08/05/18 12:02 Dose: 800 mg - Objective Vital Signs: Vital Signs Temperature 97.5 F L 08/05/18 07:00 Pulse Rate 80 08/05/18 07:00 Respiratory Rate 20 08/05/18 07:00 Blood Pressure 161/66 08/05/18 07:00 O2 Sat by Pulse Oximetry (%) 100 08/04/18 21:00 Constitutional: Yes: No Distress, Calm Cardiovascular: Yes: S1, S2 Respiratory: Yes: Regular, CTA Bilaterally Gastrointestinal: Yes: Normal Bowel Sounds, Soft Musculoskeletal: Yes: WNL Extremities: Yes: Other Wound/Incision: Yes: Dressing Dry and Intact Neurological: Yes: Alert, Oriented Psychiatric: Yes: Alert, Oriented Labs: CBC, BMP 08/05/18 06:45 08/05/18 06:45 INR, PTT INR 1.18 (0.83-1.09) H 08/03/18 05:45 Assessment/Plan Problem List - Problems (1) gas gangrene of foot Code(s): A48.0 - GAS GANGRENE (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 - OTHER DISORDERS OF CALCIUM METABOLISM (3) Chronic kidney disease, stage 5, kidney failure Code(s): N18.5 - CHRONIC KIDNEY DISEASE, STAGE 5 (4) GERD (gastroesophageal reflux disease) Code(s): K21.9 - GASTRO-ESOPHAGEAL REFLUX DISEASE WITHOUT ESOPHAGITIS (5) Hyperlipidemia Code(s): E78.5 - HYPERLIPIDEMIA, UNSPECIFIED Qualifiers: Hyperlipidemia type: pure hypercholesterolemia Qualified Code(s): E78.00 - Pure hypercholesterolemia, unspecified; E78.0 - Pure hypercholesterolemia (6) Hypertension Code(s): I10 - ESSENTIAL (PRIMARY) HYPERTENSION Qualifiers: Hypertension type: essential hypertension Qualified Code(s): I10 - Essential (primary) hypertension (7) Osteoarthritis Code(s): M19.90 - UNSPECIFIED OSTEOARTHRITIS, UNSPECIFIED SITE (8) Rheumatoid arthritis involving both hips Code(s): M06.9 - RHEUMATOID ARTHRITIS, UNSPECIFIED (9) Hypokalemia Code(s): E87.6 - HYPOKALEMIA plan stopped abx wound care dialysis rest as per the team final plan awaited
[2018-08-05] MEDS: ATORVASTATIN CA 10 MG TABLET (FP) PO SCH (22:32)
[2018-08-06] MEDS: oxyCODONE HCL 5 MG TABLET PO PRN (04:21)
[2018-08-06] MEDS: ACETAMINOPHEN 325 MG TABLET (FP) PO PRN (04:22)
[2018-08-06 07:42] LABS: EOS % 6.2 % (0-4.5); HEMATOCRIT 26.3 % (32.4-45.2); HEMOGLOBIN 8.4 GM/dL (10.7-15.3); LYMPH % 11.8 % (8-40); MCH 31.4 pg (25.7-33.7); MCHC 32.1 g/dl (32.0-36.0); MEAN CELL VOLUME 97.8 fl (80-96); MEAN PLT VOLUME 7.3 fl (7.5-11.1); MONO % 10.1 % (3.8-10.2); NEUT % 70.9 % (42.8-82.8); PLATELET COUNT 246 K/MM3 (134-434); RBC 2.69 M/mm3 (3.60-5.2); WHITE BLOOD COUNT 9.3 K/mm3 (4.0-10.0)
[2018-08-06 08:09] LABS: ANION GAP 8 MMOL/L (8-16); BLOOD UREA NITROGEN 19 mg/dL (7-18); CALCIUM 8.7 mg/dL (8.5-10.1); CHLORIDE 95 mmol/L (98-107); CO2 32 mmol/L (21-32); CREATININE 4.2 mg/dL (0.55-1.3); GLUCOSE,RANDOM 72 mg/dL (74-106); MAGNESIUM 2.3 mg/dL (1.8-2.4); POTASSIUM 3.8 mmol/L (3.5-5.1); SODIUM 135 mmol/L (136-145)
[2018-08-06] MEDS ORDERED: EPOETIN ALFA 20,000 UNIT/1 ML VIAL IVPUSH ONE ×2 (08:35→11:00)
[2018-08-06] MEDS ORDERED: SODIUM CHLORIDE 250 ML IV PRN (08:35)
[2018-08-06] MEDS: SEVELAMER CARBONATE 800 MG TAB (FP) PO SCH ×3 (08:55→17:12)
[2018-08-06] MEDS: amLODIPine BESYLATE 10 MG TABLET (FP) PO SCH ×2 (10:15→16:08)
[2018-08-06] MEDS: POLYETHYLENE GLYCOL 3350 119 GM BTL PO SCH ×2 (10:15→22:06)
[2018-08-06] MEDS: CLOPIDOGREL BISULFATE 75 MG TABLET (FP) PO SCH ×2 (10:15→16:08)
[2018-08-06] MEDS: LABETALOL HCL 100 MG TABLET (FP) PO SCH ×2 (10:15→22:06)
--- NOTE | 2018-08-06 11:31 | PN ---
Progress Note (short form) - Note Progress Note: Renal follow up for ESRD on HD Pt seen and examined during dialysis. BP stable 15 minutes into treatment access with good flow pt without any acute complaints Vital Signs Temperature 98.4 F 08/06/18 06:00 Pulse Rate 66 08/06/18 06:00 Respiratory Rate 18 08/06/18 06:00 Blood Pressure 128/56 L 08/06/18 06:00 O2 Sat by Pulse Oximetry (%) 100 08/05/18 21:00 NAD no LE edema CBC, BMP 08/06/18 06:50 08/06/18 06:50 Current Medications Acetaminophen (Tylenol -) 650 mg PO Q4H PRN PRN Reason: FEVER Last Admin: 08/06/18 04:22 Dose: 650 mg Amlodipine Besylate (Norvasc -) 10 mg PO DAILY [facility] Last Admin: 08/06/18 10:15 Dose: Not Given Atorvastatin Calcium (Lipitor -) 10 mg PO HS [facility] Last Admin: 08/05/18 22:32 Dose: 10 mg Clopidogrel Bisulfate (Plavix -) 75 mg PO DAILY [facility] Last Admin: 08/06/18 10:15 Dose: Not Given Sodium Chloride (Normal Saline -) 250 mls @ 3,000 mls/hr IV PRN PRN PRN Reason: Hypotension during Dialysis Stop: 08/07/18 08:35 Labetalol HCl (Normodyne -) 300 mg PO BID [facility] Last Admin: 08/06/18 10:15 Dose: Not Given Polyethylene Glycol (Miralax (For Daily Use) -) 17 gm PO BID [facility] Last Admin: 08/06/18 10:15 Dose: Not Given Sevelamer Carbonate (Renvela -) 800 mg PO TIDCM [facility] Last Admin: 08/06/18 08:55 Dose: 800 mg 77 year old AA woman with hx of ESRD on HD, DM, hypertension who presented with worsening infection of her foot #Gangrene of LE #arterial insufficiency of LE requiring TMA #ESRD on HD #DM #Anemia #Renal Osteodystrophy Tolerating dialysis well today, UF goal is 2.5L Continue Renal diet and 1.2L fluid restriction Will continue HD 3x weekly while inpatient Continue high shirley SHARA with HD, no acute indication for transfusion Continue renvela tid with meals Abx as per ID discharge planning as per primary Asa Smith DO
--- NOTE | 2018-08-06 14:01 | DS ---
Physical Exam: SUBJECTIVE: Patient seen and examined at bed side this morning. No complaints. Denies chest pain, sob, cough ,palpitation, abdominal pain, nausea or vomiting. No acute overnight events. OBJECTIVE: Vital Signs Period Temp Pulse Resp BP Sys/Jha Pulse Ox Last 24 Hr 97.4 F-98.7 F 62-74 18-18 120-154/55-77 100 PHYSICAL EXAM GENERAL: Elderly female, is awake, alert, and fully oriented, in no acute distress. HEAD: Normal with no signs of trauma. EYES: EOM intact , pallor +, No icterus. ENT: Ears normal, moist mucous membranes. NECK: Supple. LUNGS: B/L Breath sounds equal, clear to auscultation bilaterally, no wheezes, no crackles, no accessory muscle use. HEART: Regular rate and rhythm, S1, S2 without murmur, rub or gallop. ABDOMEN: Soft, nontender, no organomegaly, BS + UPPER EXTREMITIES: Left upper forearm-fistula functioning, 2+ pulses, warm, well -perfused, no edema. LOWER EXTREMITIES: LEFT: dressing in place, no soakage. NEUROLOGICAL: No facial droop. Normal speech, gait not observed. PSYCH: Normal mood, normal affect. SKIN: Warm, dry, normal turgor, no rashes or lesions noted LABS Laboratory Results - last 24 hr 08/05/18 08/05/18 08/06/18 18:02 20:59 05:58 WBC RBC Hgb Hct MCV MCH MCHC RDW Plt Count MPV Absolute Neuts (auto) Neutrophils % Lymphocytes % Monocytes % Eosinophils % Basophils % Nucleated RBC % Sodium Potassium Chloride Carbon Dioxide Anion Gap BUN Creatinine Creat Clearance w eGFR POC Glucometer 93 120 83 Random Glucose Calcium Phosphorus Magnesium 08/06/18 08/06/18 06:50 06:50 WBC 9.3 RBC 2.69 L Hgb 8.4 L Hct 26.3 L MCV 97.8 H MCH 31.4 MCHC 32.1 RDW 18.0 H Plt Count 246 MPV 7.3 L Absolute Neuts (auto) 6.6 Neutrophils % 70.9 Lymphocytes % 11.8 Monocytes % 10.1 Eosinophils % 6.2 H Basophils % 1.0 Nucleated RBC % 0 Sodium 135 L Potassium 3.8 Chloride 95 L Carbon Dioxide 32 Anion Gap 8 BUN 19 H Creatinine 4.2 H Creat Clearance w eGFR 10.24 POC Glucometer Random Glucose 72 L Calcium 8.7 Phosphorus 5.0 H Magnesium 2.[address] 07/18/18 shows Air/Gas accumulation is seen within the soft tissues surrounding the fourth toe consistent with gas forming infection Stress test done 07/23: Overall negative pharmacologic stress test. EF 87 % HOSPITAL COURSE: Date of Admission:07/18/18 Date of Discharge: 08/06/18 Patient is a 77 year old female PMHx of ESRD (T,Th,S), DM, HTN, HLD, admitted with Left 4th toe wound and pain for a month. Lower ext CT was done which showed Air/Gas accumulation is seen within the soft tissues surrounding the fourth toe consistent with gas forming infection. IV Zosyn and IV Clindamycin was started. Vascular surgeon and Podiatry was consulted. Tibial artery angioplasty was done on 07/24/2018. Since there was no improvement, transmetatarsal amputation of L foot 3rd 4th 5th digits and debridement of necrotic tissue was done on 08/03/18. Patient did well after surgery, there were no complications. Antibiotic course was completed. Plavix 75 mg started. Hypertension: Initially on admission, she was hypotensive so her home meds were held. Home dose Amlodipine 10mg and Labetolol 300 mg was restarted with good control in BP. Normocytic anemia likely from ESRD. H/H was stable, didn't require BT. ESRD (TTS) HD was done TTS. Sevelamer 800 mg PO TID was continued. Fluid restriction 1.2L/day Hyperlipidemia Continued Statin 10mg Patient is hemodynamically stable. Can be discharged to [facility] for short term rehabilitation. Plan of care explained to the patient. She verbalized understanding. Minutes to complete discharge: 45 Discharge Summary Reason For Visit: FAILURE OF OUT PATIENT TREATMENT Current Active Problems Calciphylaxis (Acute) Chronic kidney disease, stage 5, kidney failure (Acute) DVT prophylaxis (Acute) Failure of outpatient treatment (Acute) Foot ulcer (Acute) Gas gangrene of foot (Acute) Headache (Acute) Hypokalemia (Acute) Tibial artery disease (Acute) Condition: Improved - Instructions Diet, Activity, Other Instructions: You were admitted for the treatment of gas gangrene of the left 2-4th digits. Treated with IV antibiotics and angioplasty but it didn't get better. Hence was amputated. Please follow the instructions below: 1. You do not need antibiotics as you have completed the course 2. Betadine dressing change daily. 3. Follow up with your primary care physician, [employer] and [employer] 4. Continue your home medications and we added Plavix to your home medications. 5. Fall precautions. 6. Follow renal diet If your symptoms get worse or you develop any new symptoms, please call 911 and come to the ED immediately. Referrals: Gautam Driscoll MD [Primary Care Provider] - 1 Week Asa Smith MD [Staff Physician] - 1 Week Remi Paul DPM [Staff Physician] - 1 Week Disposition: [facility]ILITY - Home Medications Comprehensive Discharge Medication List: Ambulatory Orders Amlodipine Besylate [Norvasc -] 10 mg PO DAILY 08/02/14 Atorvastatin Ca [Lipitor] 10 mg PO HS 03/29/17 Labetalol HCl [Normodyne -] 300 mg PO DAILY 03/29/17 Sevelamer Carbonate [Renvela -] 800 mg PO TID 03/29/17 Acetaminophen [Tylenol .Regular Strength -] 650 mg PO Q4H PRN tablet 08/06/18 Clopidogrel Bisulfate [Clopidogrel] 75 mg PO DAILY #30 tablet 08/06/18 Problem List - Problems (1) Chronic kidney disease, stage 5, kidney failure Code(s): N18.5 - CHRONIC KIDNEY DISEASE, STAGE 5 (2) DVT prophylaxis Code(s): [id number] - (3) Foot ulcer Code(s): L97.509 - NON-PRESSURE CHRONIC ULCER OTH PRT UNSP FOOT W UNSP SEVERITY Qualifiers: Laterality: left Non-pressure ulcer stage: unspecified non-pressure ulcer stage Qualified Code(s): L97.529 - Non-pressure chronic ulcer of other part of left foot with unspecified severity (4) Gas gangrene of foot Code(s): A48.0 - GAS GANGRENE (5) Hypokalemia Code(s): E87.6 - HYPOKALEMIA (6) ESRD (end stage renal disease) Code(s): N18.6 - END STAGE RENAL DISEASE This patient is new to me today: Yes Date on this admission: 08/06/18 Emergency Visit: No Critical Care patient: No - Discharge Referral Referred to [facility] No
--- NOTE | 2018-08-06 15:15 | PN ---
Teaching Attending Note Name of Resident: Pati Salazar ATTENDING PHYSICIAN STATEMENT I saw and evaluated the patient. I reviewed the resident's note and discussed the case with the resident. I agree with the resident's findings and plan as documented. SUBJECTIVE: Ms Crain is without complaint. No cp, sob, n/v. OBJECTIVE: Gen: nad Pulm: ctab w/o w/r/r CV: rrr w/o m/r/g Abd: +bs, s/nt/nd Ext: LLE wrapped Ms Crain is a very pleasant 77 year old female who comes in with L 4th toe gas gangrene. She was placed on IV antibiotics by ID. She was seen by vascular surgery and podiatry. She underwent angiogram to attempt stenting. This was unsuccessful so she underwent amputation. She tolerated this without difficulty. She finished her antibiotics. She is safe for discharge to SNF. 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 - OTHER DISORDERS OF CALCIUM METABOLISM (3) Chronic kidney disease, stage 5, kidney failure Code(s): N18.5 - CHRONIC KIDNEY DISEASE, STAGE 5 (4) GERD (gastroesophageal reflux disease) Code(s): K21.9 - GASTRO-ESOPHAGEAL REFLUX DISEASE WITHOUT ESOPHAGITIS (5) Hyperlipidemia Code(s): E78.5 - HYPERLIPIDEMIA, UNSPECIFIED Qualifiers: Hyperlipidemia type: pure hypercholesterolemia Qualified Code(s): E78.00 - Pure hypercholesterolemia, unspecified; E78.0 - Pure hypercholesterolemia (6) Hypertension Code(s): I10 - ESSENTIAL (PRIMARY) HYPERTENSION Qualifiers: Hypertension type: essential hypertension Qualified Code(s): I10 - Essential (primary) hypertension (7) Hypokalemia Code(s): E87.6 - HYPOKALEMIA
--- NOTE | 2018-08-06 15:24 | PN ---
Progress Note (short form) - Note Progress Note: History of Present Illness: no chest pain, palps, dizziness, lightheadedness, sob Current Medications Generic Name Dose Route Start Last Admin Trade Name Freq PRN Reason Stop Dose Admin Acetaminophen 650 mg 08/03/18 11:00 08/06/18 04:22 Tylenol - PO 650 mg Q4H PRN Administration FEVER Amlodipine Besylate 10 mg 08/04/18 10:00 08/06/18 10:15 Norvasc - PO Not Given DAILY NOE Atorvastatin Calcium 10 mg 08/03/18 22:00 08/05/18 22:32 Lipitor - PO 10 mg HS NOE Administration Clopidogrel Bisulfate 75 mg 08/04/18 10:00 08/06/18 10:15 Plavix - PO Not Given DAILY NOE Sodium Chloride 250 mls @ 3,000 mls/hr 08/06/18 08:35 Normal Saline - IV 08/07/18 08:35 PRN PRN Hypotension during Dialysis Labetalol HCl 300 mg 08/03/18 22:00 08/06/18 10:15 Normodyne - PO Not Given BID NOE Polyethylene Glycol 17 gm 08/03/18 22:00 08/06/18 10:15 Miralax (For Daily Use) - PO Not Given BID NOE Sevelamer Carbonate 800 mg 08/03/18 12:00 08/06/18 12:54 Renvela - PO Not Given TIDCM NOE Vital Signs Period Temp Pulse Resp BP Sys/Jha Pulse Ox Last 24 Hr 97.4 F-98.7 F 62-82 - 120-163/55-90 100 nad no jvd rrr s1s2 no mrg cta bl nl eff aaox3 no le edema abd nt nd pos bs no jaundice diaphoresis CBC, BMP 08/06/18 06:50 08/06/18 06:50 echo 07/2018 severe conc LVH, nl LVfunction, mild MR, mild AR mibi 07/2018 mod zone of inferolateral fixed defect c/w diaphragmatic attenuation, EF 87% Assessment/Plan 77 yo A female with ESRD on HD, NIDDM, HTN and HPL now admitted with gangrenous left 4th toe that will require a peripheral angiogram with possible BKA. Left toe gangrene: -s/p TMA 08/03 -Abx completed HTN -controlled HPL -Stable on low intensity statin ESRD -HD as per renal stable for snf
--- NOTE | 2018-08-06 17:49 | PN ---
Progress Note, Physician History of Present Illness: stable doing well seen by podiatry dressing intact no complaints - Current Medication List Current Medications: Active Medications Acetaminophen (Tylenol -) 650 mg PO Q4H PRN PRN Reason: FEVER Last Admin: 08/06/18 04:22 Dose: 650 mg Amlodipine Besylate (Norvasc -) 10 mg PO DAILY [facility] Last Admin: 08/06/18 16:08 Dose: 10 mg Atorvastatin Calcium (Lipitor -) 10 mg PO HS [facility] Last Admin: 08/05/18 22:32 Dose: 10 mg Clopidogrel Bisulfate (Plavix -) 75 mg PO DAILY [facility] Last Admin: 08/06/18 16:08 Dose: 75 mg Sodium Chloride (Normal Saline -) 250 mls @ 3,000 mls/hr IV PRN PRN PRN Reason: Hypotension during Dialysis Stop: 08/07/18 08:35 Labetalol HCl (Normodyne -) 300 mg PO BID [facility] Last Admin: 08/06/18 10:15 Dose: Not Given Polyethylene Glycol (Miralax (For Daily Use) -) 17 gm PO BID [facility] Last Admin: 08/06/18 10:15 Dose: Not Given Sevelamer Carbonate (Renvela -) 800 mg PO TIDCM [facility] Last Admin: 08/06/18 17:12 Dose: 800 mg - Objective Vital Signs: Vital Signs Temperature 99.4 F 08/06/18 16:10 Pulse Rate 84 08/06/18 16:10 Respiratory Rate 20 08/06/18 16:10 Blood Pressure 136/78 08/06/18 16:10 O2 Sat by Pulse Oximetry (%) 100 08/05/18 21:00 Constitutional: Yes: No Distress, Calm Cardiovascular: Yes: Regular Rate and Rhythm Respiratory: Yes: Regular, CTA Bilaterally Gastrointestinal: Yes: Normal Bowel Sounds, Soft Musculoskeletal: Yes: Other Extremities: Yes: Other Wound/Incision: Yes: Dressing Dry and Intact Neurological: Yes: Alert, Oriented Psychiatric: Yes: Alert, Oriented Labs: CBC, BMP 08/06/18 06:50 08/06/18 06:50 INR, PTT INR 1.18 (0.83-1.09) H 08/03/18 05:45 Assessment/Plan Problem List - Problems (1) gas gangrene of foot Code(s): A48.0 - GAS GANGRENE (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 - OTHER DISORDERS OF CALCIUM METABOLISM (3) Chronic kidney disease, stage 5, kidney failure Code(s): N18.5 - CHRONIC KIDNEY DISEASE, STAGE 5 (4) GERD (gastroesophageal reflux disease) Code(s): K21.9 - GASTRO-ESOPHAGEAL REFLUX DISEASE WITHOUT ESOPHAGITIS (5) Hyperlipidemia Code(s): E78.5 - HYPERLIPIDEMIA, UNSPECIFIED Qualifiers: Hyperlipidemia type: pure hypercholesterolemia Qualified Code(s): E78.00 - Pure hypercholesterolemia, unspecified; E78.0 - Pure hypercholesterolemia (6) Hypertension Code(s): I10 - ESSENTIAL (PRIMARY) HYPERTENSION Qualifiers: Hypertension type: essential hypertension Qualified Code(s): I10 - Essential (primary) hypertension (7) Osteoarthritis Code(s): M19.90 - UNSPECIFIED OSTEOARTHRITIS, UNSPECIFIED SITE (8) Rheumatoid arthritis involving both hips Code(s): M06.9 - RHEUMATOID ARTHRITIS, UNSPECIFIED (9) Hypokalemia Code(s): E87.6 - HYPOKALEMIA plan stable off of abx wound care dialysis rest as per the team
[2018-08-06] MEDS: ATORVASTATIN CA 10 MG TABLET (FP) PO SCH (22:06)
[2018-08-07] MEDS: ACETAMINOPHEN 325 MG TABLET (FP) PO PRN ×2 (00:55→08:54)
[2018-08-07] MEDS: SEVELAMER CARBONATE 800 MG TAB (FP) PO SCH ×2 (08:54→12:19)
[2018-08-07] MEDS: LABETALOL HCL 100 MG TABLET (FP) PO SCH (09:14)
[2018-08-07] MEDS: CLOPIDOGREL BISULFATE 75 MG TABLET (FP) PO SCH (09:14)
[2018-08-07] MEDS: amLODIPine BESYLATE 10 MG TABLET (FP) PO SCH (09:14)
[2018-08-07] MEDS: POLYETHYLENE GLYCOL 3350 119 GM BTL PO SCH (09:14)
[2018-08-07 09:26] VITALS: BP 158/85; PULSE 75; TEMP 98.2
--- NOTE | 2018-08-07 10:34 | PN ---
Progress Note, Physician Chief Complaint: toe wound History of Present Illness: denies cp, sob, palpitations, syncope - Current Medication List Current Medications: Active Medications Acetaminophen (Tylenol -) 650 mg PO Q4H PRN PRN Reason: FEVER Last Admin: 08/07/18 08:54 Dose: 650 mg Amlodipine Besylate (Norvasc -) 10 mg PO DAILY [facility] Last Admin: 08/07/18 09:14 Dose: 10 mg Atorvastatin Calcium (Lipitor -) 10 mg PO HS [facility] Last Admin: 08/06/18 22:06 Dose: 10 mg Clopidogrel Bisulfate (Plavix -) 75 mg PO DAILY [facility] Last Admin: 08/07/18 09:14 Dose: 75 mg Labetalol HCl (Normodyne -) 300 mg PO BID [facility] Last Admin: 08/07/18 09:14 Dose: 300 mg Polyethylene Glycol (Miralax (For Daily Use) -) 17 gm PO BID [facility] Last Admin: 08/07/18 09:14 Dose: Not Given Sevelamer Carbonate (Renvela -) 800 mg PO TIDCM [facility] Last Admin: 08/07/18 08:54 Dose: 800 mg - Objective Vital Signs: Vital Signs Temperature 98.2 F 08/07/18 09:00 Pulse Rate 75 08/07/18 09:00 Respiratory Rate 20 08/07/18 09:00 Blood Pressure 158/85 08/07/18 09:00 O2 Sat by Pulse Oximetry (%) 100 08/06/18 21:00 Constitutional: Yes: No Distress, Calm, Obese Cardiovascular: Yes: Regular Rate and Rhythm, S1, S2. No: Gallop, Murmur Respiratory: Yes: Regular, CTA Bilaterally. No: Accessory Muscle Use, Wheezes Extremities: No: Cold Edema: No Neurological: Yes: Alert, Oriented Psychiatric: No: Agitated Labs: CBC, BMP 08/06/18 06:50 08/06/18 06:50 INR, PTT INR 1.18 (0.83-1.09) H 08/03/18 05:45 Assessment/Plan echo 07/2018 severe conc LVH, nl LVfunction, mild MR, mild AR mibi 07/2018 mod zone of inferolateral fixed defect c/w diaphragmatic attenuation, EF 87% Assessment/Plan 77 yo A female with ESRD on HD, NIDDM, HTN and HPL now admitted with gangrenous left 4th toe Left toe gangrene: -s/p TMA 08/03 -Abx completed HTN -controlled -same plan HPL -Stable on low intensity statin -same plan ESRD -HD as per renal
--- NOTE | 2018-08-07 12:36 | PN ---
Progress Note (short form) - Note Progress Note: Renal follow up for ESRD on HD Pt seen and examined at the bedside no acute complaints Vital Signs Temperature 98.2 F 08/07/18 09:00 Pulse Rate 75 08/07/18 09:00 Respiratory Rate 20 08/07/18 09:00 Blood Pressure 158/85 08/07/18 09:00 O2 Sat by Pulse Oximetry (%) 100 08/06/18 21:00 NAD awake and alert no LE edema CBC, BMP 08/06/18 06:50 08/06/18 06:50 Current Medications Acetaminophen (Tylenol -) 650 mg PO Q4H PRN PRN Reason: FEVER Last Admin: 08/07/18 08:54 Dose: 650 mg Amlodipine Besylate (Norvasc -) 10 mg PO DAILY [facility] Last Admin: 08/07/18 09:14 Dose: 10 mg Atorvastatin Calcium (Lipitor -) 10 mg PO HS [facility] Last Admin: 08/06/18 22:06 Dose: 10 mg Clopidogrel Bisulfate (Plavix -) 75 mg PO DAILY [facility] Last Admin: 08/07/18 09:14 Dose: 75 mg Labetalol HCl (Normodyne -) 300 mg PO BID [facility] Last Admin: 08/07/18 09:14 Dose: 300 mg Polyethylene Glycol (Miralax (For Daily Use) -) 17 gm PO BID [facility] Last Admin: 08/07/18 09:14 Dose: Not Given Sevelamer Carbonate (Renvela -) 800 mg PO TIDCM [facility] Last Admin: 08/07/18 12:19 Dose: 800 mg 77 year old AA woman with hx of ESRD on HD, DM, hypertension who presented with worsening infection of her foot #Gangrene of LE #arterial insufficiency of LE requiring TMA #ESRD on HD #DM #Anemia #Renal Osteodystrophy no indication for SASH 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
--- NOTE | 2018-08-07 13:15 | PN ---
Progress Note, Physician History of Present Illness: patient stable no new issues - Current Medication List Current Medications: Active Medications Acetaminophen (Tylenol -) 650 mg PO Q4H PRN PRN Reason: FEVER Last Admin: 08/07/18 08:54 Dose: 650 mg Amlodipine Besylate (Norvasc -) 10 mg PO DAILY [facility] Last Admin: 08/07/18 09:14 Dose: 10 mg Atorvastatin Calcium (Lipitor -) 10 mg PO HS [facility] Last Admin: 08/06/18 22:06 Dose: 10 mg Clopidogrel Bisulfate (Plavix -) 75 mg PO DAILY [facility] Last Admin: 08/07/18 09:14 Dose: 75 mg Labetalol HCl (Normodyne -) 300 mg PO BID [facility] Last Admin: 08/07/18 09:14 Dose: 300 mg Polyethylene Glycol (Miralax (For Daily Use) -) 17 gm PO BID [facility] Last Admin: 08/07/18 09:14 Dose: Not Given Sevelamer Carbonate (Renvela -) 800 mg PO TIDCM [facility] Last Admin: 08/07/18 12:19 Dose: 800 mg - Objective Vital Signs: Vital Signs Temperature 98.2 F 08/07/18 09:00 Pulse Rate 75 08/07/18 09:00 Respiratory Rate 20 08/07/18 09:00 Blood Pressure 158/85 08/07/18 09:00 O2 Sat by Pulse Oximetry (%) 100 08/07/18 09:00 Constitutional: Yes: No Distress, Calm, Obese Cardiovascular: Yes: S1, S2 Respiratory: Yes: Regular, CTA Bilaterally Gastrointestinal: Yes: Normal Bowel Sounds, Soft Musculoskeletal: Yes: WNL Extremities: Yes: Other Wound/Incision: Yes: Dressing Dry and Intact Neurological: Yes: Alert, Oriented Psychiatric: Yes: Alert, Oriented Labs: CBC, BMP 08/06/18 06:50 08/06/18 06:50 INR, PTT INR 1.18 (0.83-1.09) H 08/03/18 05:45 Assessment/Plan Problem List - Problems (1) gas gangrene of foot Code(s): A48.0 - GAS GANGRENE (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 - OTHER DISORDERS OF CALCIUM METABOLISM (3) Chronic kidney disease, stage 5, kidney failure Code(s): N18.5 - CHRONIC KIDNEY DISEASE, STAGE 5 (4) GERD (gastroesophageal reflux disease) Code(s): K21.9 - GASTRO-ESOPHAGEAL REFLUX DISEASE WITHOUT ESOPHAGITIS (5) Hyperlipidemia Code(s): E78.5 - HYPERLIPIDEMIA, UNSPECIFIED Qualifiers: Hyperlipidemia type: pure hypercholesterolemia Qualified Code(s): E78.00 - Pure hypercholesterolemia, unspecified; E78.0 - Pure hypercholesterolemia (6) Hypertension Code(s): I10 - ESSENTIAL (PRIMARY) HYPERTENSION Qualifiers: Hypertension type: essential hypertension Qualified Code(s): I10 - Essential (primary) hypertension (7) Osteoarthritis Code(s): M19.90 - UNSPECIFIED OSTEOARTHRITIS, UNSPECIFIED SITE (8) Rheumatoid arthritis involving both hips Code(s): M06.9 - RHEUMATOID ARTHRITIS, UNSPECIFIED (9) Hypokalemia Code(s): E87.6 - HYPOKALEMIA plan wound care physio rest as per the team stable
--- NOTE | 2018-08-07 13:33 | DS ---
Physical Examination Vital Signs: Vital Signs Temperature 36.8 C 08/07/18 09:00 Pulse Rate 75 08/07/18 09:00 Respiratory Rate 20 08/07/18 09:00 Blood Pressure 158/85 08/07/18 09:00 O2 Sat by Pulse Oximetry (%) 100 08/07/18 09:00 Constitutional: Yes: Well Nourished, No Distress, Calm Cardiovascular: Yes: Regular Rate and Rhythm. No: Gallop, Murmur, Rub Respiratory: Yes: Regular, CTA Bilaterally. No: Rales, Rhonchi, Wheezes Gastrointestinal: Yes: Normal Bowel Sounds, Soft. No: Distention, Tenderness Extremities: Yes: Other (LLE wrapped) Edema: No Labs: CBC, BMP 08/06/18 06:50 08/06/18 06:50 Discharge Summary Reason For Visit: FAILURE OF OUT PATIENT TREATMENT Current Active Problems Calciphylaxis (Acute) Chronic kidney disease, stage 5, kidney failure (Acute) DVT prophylaxis (Acute) Failure of outpatient treatment (Acute) Foot ulcer (Acute) Gas gangrene of foot (Acute) Headache (Acute) Hypokalemia (Acute) Tibial artery disease (Acute) Hospital Course: Please refer to discharge summary dictated on 08/06. Patient was discharged but did not go to SNF. Currently is doing well and medically stable. She is safe for discharge to SNF today. Condition: Improved - Instructions Diet, Activity, Other Instructions: You were admitted for the treatment of gas gangrene of the left 2-4th digits. Treated with IV antibiotics and angioplasty but it didn't get better. Hence was amputated. Please follow the instructions below: 1. You do not need antibiotics as you have completed the course 2. Betadine dressing change daily. 3. Follow up with your primary care physician, building services coordinator and annual campaign manager 4. Continue your home medications and we added Plavix to your home medications. 5. Fall precautions. 6. Follow renal diet If your symptoms get worse or you develop any new symptoms, please call 911 and come to the ED immediately. Referrals: Gautam Driscoll MD [Primary Care Provider] - 1 Week Asa Smith MD [Staff Physician] - 1 Week Remi Paul DPM [Staff Physician] - 1 Week [facility]position: [facility] - Home Medications Comprehensive Discharge Medication List: Ambulatory Orders Amlodipine Besylate [Norvasc -] 10 mg PO DAILY 08/02/14 Atorvastatin Ca [Lipitor] 10 mg PO HS 03/29/17 Labetalol HCl [Normodyne -] 300 mg PO DAILY 03/29/17 Sevelamer Carbonate [Renvela -] 800 mg PO TID 03/29/17 Acetaminophen [Tylenol .Regular Strength -] 650 mg PO Q4H PRN tablet 08/06/18 Clopidogrel Bisulfate [Clopidogrel] 75 mg PO DAILY #30 tablet 08/06/18
--- NOTE | 2018-08-08 15:30 | PATH ---
Surgical Pathology Report Patient Name: REJI LY [facility]. Rec. #: [id number] /Age/Gender: 1940 (Age: 77) / F Account: [id number] Location: [address] [place] [address]/[facility] Taken: 08/03/2018 Received: 08/03/2018 Reported: 08/08/2018 Physicians: PATTIE Farah M.D. Specimen(s) Received A: NECROTIC TISSUE LEFT FOOT B: 3RD AND 4TH TOE LEFT FOOT C: 5TH TOE LEFT FOOT D: 3RD METATARSAL HEAD LEFT FOOT E: 4TH METATARSAL HEAD LEFT FOOT F: 5TH METATARSAL HEAD LEFT FOOT Clinical History Gangrene, osteomyelitis left foot Final Diagnosis A. FOOT, LEFT, NECROTIC TISSUE, DEBRIDEMENT: SKIN AND SUBCUTANEOUS TISSUE WITH MARKED ACUTE INFLAMMATION AND GANGRENOUS NECROSIS. B. FOOT, LEFT, THIRD AND FOURTH TOES, TRANSMETATARSAL AMPUTATION: THIRD AND FOURTH DIGITS WITH MARKED ACUTE INFLAMMATION, GANGRENOUS NECROSIS, AND MILD TO MODERATE ACUTE OSTEOMYELITIS EXTENDING TO SURGICAL MARGINS. C. FOOT, LEFT, FIFTH TOE, AMPUTATION: DIGIT WITH MARKED ACUTE INFLAMMATION, GANGRENOUS NECROSIS, AND MILD ACUTE OSTEOMYELITIS EXTENDING TO SURGICAL MARGIN. MODERATE CALCIFIC ATHEROSCLEROSIS. D. FOOT, LEFT, THIRD METATARSAL HEAD, EXCISION: BONE WITH FATTY MARROW. NO ACUTE OSTEOMYELITIS IDENTIFIED. FIBROADIPOSE TISSUE, DENSE FIBROCONNECTIVE TISSUE, AND SKELETAL MUSCLE WITH FOCAL REACTIVE CHANGES. E. FOOT, LEFT, FOURTH METATARSAL HEAD, EXCISION: SEGMENT OF BONE WITH MILD ACUTE OSTEOMYELITIS AND REACTIVE CHANGES. F. FOOT, LEFT, FIFTH METATARSAL HEAD, EXCISION: BONE WITH FATTY MARROW AND FOCAL REACTIVE CHANGES. NO ACUTE OSTEOMYELITIS IDENTIFIED. Electronically Signed Maria Elena Gonzalez M.D. Gross Description A. Received in formalin labeled "necrotic tissue left foot," is a 4.0 x 3.8 x 0.2 cm black see, gangrenous portion of skin. Home Health Administrator sections are submitted in one cassette. B. Received in formalin labeled "third and fourth toes left foot," is a 4.5 x 3.5 x 1.9 cm transmetatarsal amputation specimen including 2 digits. The entire epidermal surface displays a black-see, gangrenous lesion involving skin and soft tissue margin. The lesion involves the underlying bone. Home Health Administrator sections are submitted in 4 cassettes as follows: 1-skin and soft tissue margin; 2-cross section of both digits, following decalcification; 3-third digit bone margin, following decalcification; 4-fourth digit bone margin, following decalcification. C. Received in formalin labeled "fifth toe left foot," is a 4.0 x 1.7 x 1.6 cm toe amputation specimen. The specimen displays a 2.5 cm in greatest dimension black see, gangrenous lesion which appears to involve the skin and soft tissue margin. The lesion possibly involves the underlying bone. Home Health Administrator sections are submitted in 3 cassettes as follows: 1-skin and soft tissue margin; 2-bone margin, following decalcification; 3-lesion with underlying bone, following decalcification. D. Received in formalin labeled "third metatarsal head left foot," is a 3.0 x 1.5 x 1.0 cm portion of bone with smooth articular cartilage at one end and smooth trabecular bone at the opposing end. Home Health Administrator sections are submitted in 2 cassettes as follows: 1-end with articular cartilage, following decalcification; 2-end with trabecular bone, following decalcification. E. Received in formalin labeled "fourth metatarsal head left foot," is a 2.8 x 1.6 I 1.3 cm portion of bone with smooth articular cartilage at one end and smooth trabecular bone at the opposing end. Home Health Administrator sections are submitted in 2 cassettes as follows: 1-end with articular cartilage, following decalcification; 2-end with trabecular bone, following decalcification. F. Received in formalin labeled "fifth metatarsal head left foot," is a 3.1 x 1.4 x 1.3 cm portion of bone with smooth articular cartilage at one end and smooth trabecular bone at the opposing end. Home Health Administrator sections are submitted in 2 cassettes as follows: 1-end with articular cartilage, following decalcification; 2-end with trabecular bone, following decalcification. 08/06/2018 saudi08/06/2018
--- NOTE | 2018-08-08 15:46 | OP ---
DATE OF OPERATION: 07/24/2018 PREOPERATIVE DIAGNOSIS: Left foot gangrene. POSTOPERATIVE DIAGNOSIS: Left foot gangrene. PROCEDURES: Aortogram. Left lower extremity angiogram. Tibial artery angioplasty. SURGEON: Boris Blake DO ANESTHESIA: Fractional. BLOOD LOSS: 50 mL. INDICATION FOR PROCEDURE: The patient is a 77-year-old female that comes in with left foot gangrene. It was decided that she would need an angiogram. The patient's family was consented for the procedure, understanding all risks, benefits, and alternatives. DESCRIPTION OF PROCEDURE: She was then taken to the operating room. Once in the operating room, she was laid on the operating table in a supine manner, and the area of the right and left groin was prepped and draped in a sterile surgical manner. We then injected 10 mL of lidocaine 1% over the right common femoral artery. We then used a Micropuncture needle and punctured the right common femoral artery. Micropuncture wire was inserted. Micropuncture sheath was inserted. A 0.035 floppy guide wire was inserted into the aorta followed by a 5-Palestinian sheath. We then inserted an Omni Flush catheter into the aorta and shot an aortogram via hand injection which showed that the aorta and the iliac arteries were without any disease. We then took our wire and brought it up and over to the left common femoral artery and our Omni Flush catheter followed. We then shot an angiogram of the left lower extremity which showed that the common femoral artery, the profunda, and the SFA were patent. The popliteal artery was patent. Patient had severe tibial disease, but had an anterior tibial artery that was diseased at the takeoff and then did go down into the foot. At this point, we decided that patient would need a tibial artery angioplasty. We next went ahead and placed a 0.035 stiff guide wire into the SFA. Removed our Omni Flush catheter. Placed a 6 x 45 crossover sheath. Five-thousand units of IV heparin was administered to the patient. We then went ahead and placed a 0.035 stiff guide wire down to the tibioperoneal trunk. We then went ahead and using a Quick-Cross catheter selectively navigated through and cross our anterior tibial artery lesion at the takeoff. We then exchanged for a steamboat pilot wire. We then used a 2.5 x 10 Ultraverse balloon and performed angioplasty of the anterior tibial artery and its takeoff. Completion angiogram now showed that the anterior tibial artery was patent and has good, brisk flow into the forefoot. At this point, there was no more intervention needed. We brought our sheath up and over. A StarClose device was successfully deployed in the right common femoral artery. Pressure was held for 5 minutes. After there was no more bleeding, the areas were then dried and Dermabond was placed. Patient tolerated the procedure without complication. Patient transferred to PACU in stable condition. BORIS BLAKE DO [id number]
== END 2018-08-07 16:52 | DRG 239 ==
LOC: JER 16:10 → JERBED 18:29 → J5S 21:17 → J4S 07-19 00:14 → J6S 08-03 11:40
PROVIDERS: ADMIT Internal Medicine; ATTEND Internal Medicine
PROC: 047Q341 Dilation of Left Anterior Tibial Artery with Drug-eluting Intraluminal Device, using Drug-Coated Balloon, Percutaneous Approach (ICD-10-PCS; 2018-07-24)
PROC: 047Q3ZZ Dilation of Left Anterior Tibial Artery, Percutaneous Approach (ICD-10-PCS; 2018-07-24)
PROC: 0Y6U0Z0 Detachment at Left 3rd Toe, Complete, Open Approach (ICD-10-PCS; 2018-08-03)
PROC: 0Y6N0ZD Detachment at Left Foot, Partial 4th Ray, Open Approach (ICD-10-PCS; 2018-08-03)
PROC: 0Y6N0ZF Detachment at Left Foot, Partial 5th Ray, Open Approach (ICD-10-PCS; 2018-08-03)
PROC: 0Y6Y0Z0 Detachment at Left 5th Toe, Complete, Open Approach (ICD-10-PCS; 2018-08-03)
PROC: 0Y6W0Z0 Detachment at Left 4th Toe, Complete, Open Approach (ICD-10-PCS; 2018-08-03)
PROC: 0SBN0ZZ Excision of Left Metatarsal-Phalangeal Joint, Open Approach (ICD-10-PCS; 2018-08-03)
PROC: 0Y6N0ZC Detachment at Left Foot, Partial 3rd Ray, Open Approach (ICD-10-PCS; principal; 2018-08-03 09:00)
DX: E11.52 Type 2 diabetes mellitus with diabetic peripheral angiopathy with gangrene (principal); A48.0 Gas gangrene; N18.6 End stage renal disease; I12.0 Hypertensive chronic kidney disease with stage 5 chronic kidney disease or end stage renal disease; E11.621 Type 2 diabetes mellitus with foot ulcer; E11.22 Type 2 diabetes mellitus with diabetic chronic kidney disease; L97.529 Non-pressure chronic ulcer of other part of left foot with unspecified severity; Z99.2 Dependence on renal dialysis; I77.89 Other specified disorders of arteries and arterioles; E83.59 Other disorders of calcium metabolism; E87.6 Hypokalemia; K21.9 Gastro-esophageal reflux disease without esophagitis; E78.5 Hyperlipidemia, unspecified; M06.9 Rheumatoid arthritis, unspecified; N25.0 Renal osteodystrophy; D63.1 Anemia in chronic kidney disease; D72.829 Elevated white blood cell count, unspecified
CPT/HCPCS: 36415; 73630-TC-LT; 73700-TC-RT; 75635-TC; 76000-TC-FY; 78452-TC; 80048; 80053; 82565; 82728; 82962; 83036; 83540; 83550; 83605; 83735; 84100; 84520; 85025; 85027; 85610; 85651; 86140; 86704; 86706; 86708; 86803; 86850; 86900; 86901; 87070; 87205; 87340; 88304-TC; 88305-TC; 88311-TC; 93005; 93010; 93017; 93306-TC; 93926-TC; 93970-TC; 94760; 97116-GP; 97162-GP; 99282-25; A9502; J0885; J1644; J2785; J7030

== ENCOUNTER 2018-09-06 09:51 | Inpatient (IN) | payer OTHER ==
--- NOTE | 2018-09-06 10:10 | PDOC ---
History of Present Illness - General History Source: Patient Exam Limitations: No Limitations <Danica Storey - Last Filed: 09/06/18 10:10> <Ivan Jimenez - Last Filed: 09/06/18 10:16> - General Stated Complaint: WOUND Time Seen by Provider: 09/06/18 10:08 Past History - Past Medical History Anemia: Yes Asthma: No Cancer: No Cardiac Disorders: Yes (HTN) CVA: No COPD: No CHF: No Dementia: No Diabetes: Yes Dialysis: Yes (t--mon) GI Disorders: No Disorders: No HTN: Yes (ESRD) Hypercholesterolemia: Yes Liver Disease: No Seizures: No Thyroid Disease: No - Surgical History Abdominal Surgery: No Cholecystectomy: Yes Lung Surgery: No Orthopedic Surgery: Yes (RT KNEE REPLACEMENT) - Immunization History Immunization Up to Date: Yes - Suicide/Smoking/Psychosocial Hx Smoking History: Unknown if ever smoked Have you smoked in the past 12 months: No Number of Cigarettes Smoked Daily: 0 Hx Alcohol Use: No Drug/Substance Use Hx: No Substance Use Type: None Hx Substance Use Treatment: No <Danica Storey - Last Filed: 09/06/18 10:10> <Ivan Jimenez - Last Filed: 09/06/18 10:16> - Past Medical History Allergies/Adverse Reactions: Allergies Allergy/AdvReac Type Severity Reaction Status Date / Time No Known Drug Allergies Allergy Verified 09/06/18 10:08 Home Medications: Ambulatory Orders Amlodipine Besylate [Norvasc -] 10 mg PO DAILY 08/02/14 Atorvastatin Ca [Lipitor] 10 mg PO HS 03/29/17 Labetalol HCl [Normodyne -] 300 mg PO DAILY 03/29/17 Sevelamer Carbonate [Renvela -] 800 mg PO TID 03/29/17 Acetaminophen [Tylenol .Regular Strength -] 650 mg PO Q4H PRN tablet 08/06/18 Clopidogrel Bisulfate [Clopidogrel] 75 mg PO DAILY #30 tablet 08/06/18 Calcium Acetate [Phoslo -] 667 mg PO TID 08/23/18 Collagenase Clostridium Hist. [Santyl] 1 applic TP DAILY 08/23/18 Ferrous Sulfate 325 mg PO DAILY 08/23/18 Povidone-Iodine [Betadine -] DAILY 08/23/18 *Physical Exam - Vital Signs Last Vital Signs Temp Pulse Resp BP Pulse Ox 97.5 F L 67 18 110/66 98 09/06/18 10:08 09/06/18 10:08 09/06/18 10:08 09/06/18 10:08 09/06/18 10:08 <Danica Storey - Last Filed: 09/06/18 10:10> - Vital Signs Last Vital Signs Temp Pulse Resp BP Pulse Ox 97.5 F L 67 18 110/66 98 09/06/18 10:08 09/06/18 10:08 09/06/18 10:08 09/06/18 10:08 09/06/18 10:08 <Ivan Jimenez - Last Filed: 09/06/18 10:16> Moderate Sedation - Procedure Monitoring Vital Signs: Procedure Monitoring Vital Signs Temperature 97.5 F L 09/06/18 10:08 Pulse Rate 67 09/06/18 10:08 Respiratory Rate 18 09/06/18 10:08 Blood Pressure 110/66 09/06/18 10:08 O2 Sat by Pulse Oximetry (%) 98 09/06/18 10:08 <Danica Storey - Last Filed: 09/06/18 10:10> - Procedure Monitoring Vital Signs: Procedure Monitoring Vital Signs Temperature 97.5 F L 09/06/18 10:08 Pulse Rate 09/06/18 10:08 Respiratory Rate 18 09/06/18 10:08 Blood Pressure 110/66 09/06/18 10:08 O2 Sat by Pulse Oximetry (%) 98 09/06/18 10:08 <Ivan Jimenez - Last Filed: 09/06/18 10:16>
--- NOTE | 2018-09-06 10:32 | PDOC ---
History of Present Illness - General History Source: Patient Exam Limitations: No Limitations - History of Present Illness Initial Comments: 09/06/18 10:33 Ms Crain is a 77 yo F h/o ESRD (T,Th,S), DM, HTN, HLD, PVD s/p recent admission for toe pain, found to have soft tissue air/gas surrounding the 4th toe, consistent with gas forming infection, s/p amputation of 3rd, 4th, 5th digits. Pt was discharged to [facility] for rehab Pt was seen in follow up on 08/23 where she was not noted to have cellulitis or drainage, early dry gangrenous changed of 2nd toe, wound noted mid incision. Sutures removed and wound was debrided. Pt seen in follow up again on 08/30 where wound was noted to be necrotic Pt seen in follow up on 09/06 and sent to the ER to be admitted due to wound progression and necrosis pt denies fevers or chills No pain in the foot PMH: ESRD (T,Th,S), DM, HTN, HLD, PVD PSH: AV fistula, TAHBSO, Amputation of toes Meds: Please see MAR ALL: NKDA Social: denies tobacco, alcohol, drug use ROS: GENERAL/CONSTITUTIONAL: No: fever, chills, weakness, loss of appetite. HEAD, EYES, EARS, NOSE AND THROAT: No: change in vision, ear pain, discharge, sore throat, throat swelling. CARDIOVASCULAR: No: chest pain, lightheadedness, palpitations, syncope RESPIRATORY: No: cough, shortness of breath, wheezing, hemoptysis, stridor. GASTROINTESTINAL: No: nausea, vomiting, diarrhea, abdominal pain GENITOURINARY: No: dysuria, hematuria, frequency, urgency, flank pain. MUSCULOSKELETAL: No: back pain, neck pain, joint pain, muscle swelling or pain SKIN: Yes: wound necrosis No: lesions, pallor, rash or easy bruising. NEUROLOGIC: No: headache, vertigo, paresthesias, weakness ENDOCRINE: No: unexplained weight gain or loss HEMATOLOGIC/LYMPHATIC: No: anemia, easy bleeding, swelling nodes. PE: GENERAL: The patient is in no acute distress. HEAD: Normal EYES: PERRLA, EOMI, sclera anicteric, conjunctiva clear. ENT: Ears normal, nares patent, oropharynx clear without exudates. Moist mucous membranes. NECK: Normal range of motion, (+) JVD LUNGS: Breath sounds equal, clear to auscultation bilaterally. No wheezes, and no crackles. HEART:Regular rate and rhythm, normal S1 and S2 without murmur, rub or gallop. ABDOMEN: Soft, nontender, normoactive bowel sounds. EXTREMITIES: Normal range of motion, no edema. Foot wound NEUROLOGICAL: Cranial nerves II through XII grossly intact. Normal speech. No focal neurological deficits. MUSCULOSKELETAL: Back non-tender to palpation SKIN: Absent toes 3, 4, 5 2nd toe necrotic Dorsum of foor 5cm open wound No erythema No drainage 09/06/18 10:37 09/06/18 11:00 09/06/18 11:02 09/06/18 11:03 09/06/18 11:13 <Danica Storey - Last Filed: 09/06/18 12:21> <Mary Currie - Last Filed: 09/06/18 12:36> - General Chief Complaint: Wound Stated Complaint: WOUND Time Seen by Provider: 09/06/18 10:08 Past History - Past Medical History Anemia: Yes Asthma: No Cancer: No Cardiac Disorders: Yes (HTN) CVA: No COPD: No CHF: No Dementia: No Diabetes: Yes Dialysis: Yes () GI Disorders: No Disorders: No HTN: Yes (ESRD) Hypercholesterolemia: Yes Liver Disease: No Seizures: No Thyroid Disease: No - Surgical History Abdominal Surgery: No Cholecystectomy: Yes Lung Surgery: No Orthopedic Surgery: Yes (RT KNEE REPLACEMENT) - Immunization History Immunization Up to Date: Yes - Suicide/Smoking/Psychosocial Hx Smoking History: Unknown if ever smoked Have you smoked in the past 12 months: No Number of Cigarettes Smoked Daily: 0 Hx Alcohol Use: No Drug/Substance Use Hx: No Substance Use Type: None Hx Substance Use Treatment: No <Danica Storey - Last Filed: 09/06/18 12:21> <Mary Currie - Last Filed: 09/06/18 12:36> - Past Medical History Allergies/Adverse Reactions: Allergies Allergy/AdvReac Type Severity Reaction Status Date / Time No Known Drug Allergies Allergy Verified 09/06/18 10:08 Home Medications: Ambulatory Orders Amlodipine Besylate [Norvasc -] 10 mg PO DAILY 08/02/14 Atorvastatin Ca [Lipitor] 10 mg PO HS 03/29/17 Labetalol HCl [Normodyne -] 300 mg PO DAILY 03/29/17 Sevelamer Carbonate [Renvela -] 800 mg PO TID 03/29/17 Acetaminophen [Tylenol .Regular Strength -] 650 mg PO Q4H PRN tablet 08/06/18 Clopidogrel Bisulfate [Clopidogrel] 75 mg PO DAILY #30 tablet 08/06/18 Calcium Acetate [Phoslo -] 667 mg PO TID 08/23/18 Collagenase Clostridium Hist. [Santyl] 1 applic TP DAILY 08/23/18 Ferrous Sulfate 325 mg PO DAILY 08/23/18 *Physical Exam - Vital Signs Last Vital Signs Temp Pulse Resp BP Pulse Ox 97.5 F L 67 18 110/66 98 09/06/18 10:08 09/06/18 10:08 09/06/18 10:08 09/06/18 10:08 09/06/18 10:08 <Danica Storey - Last Filed: 09/06/18 12:21> - Vital Signs Last Vital Signs Temp Pulse Resp BP Pulse Ox 97.5 F L 67 18 110/66 98 09/06/18 10:08 09/06/18 10:08 09/06/18 10:08 09/06/18 10:08 09/06/18 10:08 <Mary Currie - Last Filed: 09/06/18 12:36> Moderate Sedation - Procedure Monitoring Vital Signs: Procedure Monitoring Vital Signs Temperature 97.5 F L 09/06/18 10:08 Pulse Rate 09/06/18 10:08 Respiratory Rate 18 09/06/18 10:08 Blood Pressure 110/66 09/06/18 10:08 O2 Sat by Pulse Oximetry (%) 98 09/06/18 10:08 <Danica Storey - Last Filed: 09/06/18 12:21> - Procedure Monitoring Vital Signs: Procedure Monitoring Vital Signs Temperature 97.5 F L 09/06/18 10:08 Pulse Rate 67 09/06/18 10:08 Respiratory Rate 18 09/06/18 10:08 Blood Pressure 110/66 09/06/18 10:08 O2 Sat by Pulse Oximetry (%) 98 09/06/18 10:08 <Mary Currie - Last Filed: 09/06/18 12:36> ED Treatment Course - LABORATORY CBC & Chemistry Diagram: 09/06/18 10:30 09/06/18 11:25 - RADIOLOGY Radiology Studies Ordered: Category Date Time Status CHEST X-RAY PORTABLE* [RAD] Stat Radiology 09/06/18 10:19 Ordered <Danica Storey - Last Filed: 09/06/18 12:21> - LABORATORY CBC & Chemistry Diagram: 09/06/18 10:30 09/06/18 11:25 - ADDITIONAL ORDERS Additional order review: Laboratory Results 09/06/18 09/06/18 09/06/18 11:25 10:30 10:30 PT with INR 13.20 H INR 1.12 H Sodium 136 Cancelled Potassium 3.8 Cancelled Chloride 96 L Cancelled Carbon Dioxide 28 Cancelled Anion Gap 12 Cancelled BUN 57 H Cancelled Creatinine 4.8 H Cancelled Creat Clearance w eGFR 8.77 Cancelled Random Glucose 103 Cancelled Calcium 9.5 Cancelled Total Bilirubin 0.7 Cancelled AST 24 Cancelled ALT 23 Cancelled Alkaline Phosphatase 159 H Cancelled Total Protein 8.0 Cancelled Albumin 2.7 L Cancelled 09/06/18 10:30 RBC 3.98 MCV 92.8 MCHC 33.4 RDW 18.2 H MPV 8.2 D Neutrophils % 59.1 Lymphocytes % 23.8 D Monocytes % 11.7 H Eosinophils % 4.3 Basophils % 1.1 - Medications Given in the ED: ED Medications Discontinued Medications Generic Name Dose Route Start Last Admin Trade Name Freq PRN Reason Stop Dose Admin Acetaminophen 975 mg 09/06/18 11:54 09/06/18 11:59 Tylenol - PO 09/06/18 11:55 975 mg ONCE ONE Administration Piperacillin Sod/Tazobactam 50 mls @ 100 mls/hr 09/06/18 11:34 09/06/18 11:51 Sod 2.25 gm/ Dextrose IVPB 09/06/18 12:03 100 mls/hr ONCE ONE Administration Protocol Vancomycin HCl 1,000 mg 09/06/18 11:34 09/06/18 11:59 Vancomycin (Pre-Docked) IVPB 09/06/18 11:35 1,000 mg ONCE ONE Administration Protocol <Mary Currie - Last Filed: 09/06/18 12:36> Medical Decision Making - Medical Decision Making 09/06/18 10:31 EKG: NSR rate of 66 bpm, axis nml, intervals abnormal - pr:208ms (prolonged), QRS: 82ms, QTc: 440ms, no st elevation or depression, T wave inversion I, aVL 09/06/18 11:12 CXR - no air space opacities 09/06/18 11:12 Laboratory Tests 09/06/18 10:30 WBC 5.1 Hgb 12.4 Hct 37.0 D Plt Count 216 09/06/18 11:26 Laboratory Tests 09/06/18 10:30 PT with INR 13.20 H INR 1.12 H 09/06/18 11:[address] Guidry Recommends broad coverage - Vanc/Zosyn for now Awaiting foot x ray 09/06/18 11:49 CMP is hemolyzed 09/06/18 12:21 Laboratory Tests 09/06/18 11:25 Sodium 136 Potassium 3.8 Chloride 96 L Carbon Dioxide 28 Anion Gap 12 BUN 57 H Creatinine 4.8 H Random Glucose 103 Will admit to hospitalist <Danica Storey - Last Filed: 09/06/18 12:21> - Medical Decision Making 09/06/18 12:[address] Smith, awaiting call back. 09/06/18 12:[address] Smith. <Mary Currie - Last Filed: 09/06/18 12:36> *DC/Admit/Observation/Transfer - Discharge Dispostion Decision to Admit order: Yes <Danica Storey - Last Filed: 09/06/18 12:21> - Attestations Scribe Attestion: 09/06/18 12:29 Documentation prepared by Mary Currie, acting as medical tech for Danica Storey MD. <Mary Currie - Last Filed: 09/06/18 12:36> Diagnosis at time of Disposition: Gangrene - Discharge Dispostion Condition at time of disposition: Stable - Referrals Referrals: Gautam Driscoll MD [Primary Care Provider] -
[2018-09-06 11:09] LABS: BASO % 1.1 % (0-2.0); EOS % 4.3 % (0-4.5); HEMOGLOBIN 12.4 GM/dL (10.7-15.3); LYMPH % 23.8 % (8-40); MCHC 33.4 g/dl (32.0-36.0); MEAN CELL VOLUME 92.8 fl (80-96); MEAN PLT VOLUME 8.2 fl (7.5-11.1); MONO % 11.7 % (3.8-10.2); NEUT % 59.1 % (42.8-82.8); PLATELET COUNT 216 K/MM3 (134-434); RBC 3.98 M/mm3 (3.60-5.2); RDW 18.2 % (11.6-15.6); WHITE BLOOD COUNT 5.1 K/mm3 (4.0-10.0)
[2018-09-06 11:23] LABS: INR 1.12 (0.83-1.09); PROTHROMBIN TIME (PATIENT) 13.2 SEC (9.7-13.0)
[2018-09-06] MEDS ORDERED: PIPERACILLIN/TAZOB 2.25 GM 2.25 GM in DEXTROSE 5%-WATER - 50 ML IVPB ONE (11:34)
[2018-09-06] MEDS ORDERED: VANCOMYCIN 1 GM in D5W (PRE-DOCKED) 1,000 MG/250 ML IVPB ONE (11:34)
[2018-09-06] MEDS ORDERED: PIPERACILLIN/TAZOB 2.25 GM 2.25 GM/50 ML BAG IVPB ONE (11:47)
[2018-09-06] MEDS ORDERED: VANCOMYCIN 1 GRAM (PRE-DOCKED) 1,000 MG/250 ML BAG IVPB ONE (11:48)
[2018-09-06] MEDS ORDERED: ACETAMINOPHEN 325 MG TABLET (FP) PO ONE (11:54)
[2018-09-06] MEDS ORDERED: ACETAMINOPHEN 325 MG TABLET (FP) ONE (11:55)
[2018-09-06 12:08] LABS: ALBUMIN 2.7 g/dl (3.4-5.0); ALK PHOS 159 U/L (45-117); ANION GAP 12 MMOL/L (8-16); BILIRUBIN,TOTAL 0.7 mg/dL (0.2-1); BLOOD UREA NITROGEN 57 mg/dL (7-18); CALCIUM 9.5 mg/dL (8.5-10.1); CHLORIDE 96 mmol/L (98-107); CO2 28 mmol/L (21-32); CREATININE 4.8 mg/dL (0.55-1.3); GLUCOSE,RANDOM 103 mg/dL (74-106); POTASSIUM 3.8 mmol/L (3.5-5.1); SGOT/AST 24 U/L (15-37); SGPT/ALT 23 U/L (13-61); SODIUM 136 mmol/L (136-145)
--- NOTE | 2018-09-06 13:02 | HP ---
Admitting History and Physical - Primary Care Physician PCP: Gautam Driscoll - Admission History of Present Illness: 77 year old female with PMH of ESRD on HD, NIDDM, HTN, HLD, recent transmetatarsal amputation of L foot 3rd 4th 5th digits on 08/03/18 presents with gangrenous changes to left 2nd digit. Pt was discharged to SNF last admission and was following up with at [facility], he noticed progressive changes to the 2nd toe and sent pt to the ED for admission. Pt reports she is feeling well, without any complaint. Denies any chest pain, sob, dizziness, lightheadedness, fever/chills, abdominal pain, n/v/d, dysuria, numbness/tingling, worsening lower extremities pain. History Source: Medical Record - Past Medical History Cardiovascular: Yes: HTN, Hyperlipdemia Gastrointestinal: Yes: GERD Renal/: Yes: Renal Failure, Hemodialysis Reproductive: Yes: Other (ovarian cancer s/p tahbswo) Endocrine: Yes: Diabetes Mellitus - Past Surgical History Past Surgical History: Yes: AV Fistula/Graft, Hysterectomy, Joint Replacement ( R knee), Oopherectomy Additional Past Surgical History: transmetatarsal amputation of L foot 3rd 4th 5th digits- 08/03/18. - Smoking History Smoking history: Never smoked Have you smoked in the past 12 months: No Aproximately how many cigarettes per day: 0 - Alcohol/Substance Use Hx Alcohol Use: No History of Substance Use: reports: None - Social History ADL: Support Services History of Recent Travel: No Home Medications - Allergies Allergies/Adverse Reactions: Allergies Allergy/AdvReac Type Severity Reaction Status Date / Time No Known Drug Allergies Allergy Verified 09/06/18 10:08 - Home Medications Home Medications: Ambulatory Orders Amlodipine Besylate [Norvasc -] 10 mg PO DAILY 08/02/14 Atorvastatin Ca [Lipitor] 10 mg PO HS 03/29/17 Labetalol HCl [Normodyne -] 300 mg PO BID 03/29/17 Sevelamer Carbonate [Renvela -] 800 mg PO TID 03/29/17 Acetaminophen [Tylenol .Regular Strength -] 650 mg PO Q4H PRN tablet 08/06/18 Clopidogrel Bisulfate [Clopidogrel] 75 mg PO DAILY #30 tablet 08/06/18 Calcium Acetate [Phoslo -] 667 mg PO TID 08/23/18 Collagenase Clostridium Hist. [Santyl] 1 applic TP DAILY 08/23/18 Ferrous Sulfate 325 mg PO DAILY 08/23/18 Family Disease History - Family Disease History Family Disease History: Diabetes: Sister, Heart Disease: Sister, Other: Mother ( hypertension) Review of Systems Findings/Remarks: as per hpi Physical Examination Vital Signs: Vital Signs Temperature 97.5 F L 09/06/18 10:08 Pulse Rate 67 09/06/18 10:08 Respiratory Rate 18 09/06/18 10:08 Blood Pressure 110/66 09/06/18 10:08 O2 Sat by Pulse Oximetry (%) 98 09/06/18 10:08 Constitutional: Yes: Well Nourished, No Distress, Calm Cardiovascular: Yes: Regular Rate and Rhythm Respiratory: Yes: WNL, Regular, CTA Bilaterally. No: Accessory Muscle Use, SOB , Tachypnea, Wheezes Gastrointestinal: Yes: WNL, Normal Bowel Sounds, Soft. No: Distention, Tenderness Renal/: Yes: WNL Extremities: Yes: Amputation (left metatarsal 3,4,5th), Other (black/blue discoloration to left 1st,2nd digit, Right 4th) Edema: No Peripheral Pulses WNL: No Peripheral Pulses: Left Doralis Pedis: 2+ (doppler), Right Dorsalis Pedis: 2+ ( doppler) Integumentary: Yes: Other (LLE metatarsal wound) Wound/Incision: Yes: Clean/Dry Neurological: Yes: WNL, Alert, Oriented Psychiatric: Yes: WNL, Alert, Oriented Labs: CBC, BMP 09/06/18 10:30 09/06/18 11:25 Problem List - Problems (1) Wound infection Assessment/Plan: worsening discoloration to left 2nd/1st digit CT LLE- edematous changes of soft tissue of foot, low suspicion for osteomyelitis antibx per ID podiatry/vascular consulted and aware Code(s): T14.8XXA - OTHER INJURY OF UNSPECIFIED BODY REGION, INITIAL ENCOUNTER; L08.9 - LOCAL INFECTION OF THE SKIN AND SUBCUTANEOUS TISSUE, UNSP (2) ESRD (end stage renal disease) on dialysis Assessment/Plan: nephrology following Code(s): N18.6 - END STAGE RENAL DISEASE; Z99.2 - DEPENDENCE ON RENAL DIALYSIS (3) Calciphylaxis Assessment/Plan: chronic nephrology following Code(s): E83.59 - OTHER DISORDERS OF CALCIUM METABOLISM (4) Hypertension Assessment/Plan: controlled continue home meds Code(s): I10 - ESSENTIAL (PRIMARY) HYPERTENSION Qualifiers: Hypertension type: essential hypertension Qualified Code(s): I10 - Essential (primary) hypertension (5) Diabetes Assessment/Plan: BGM Insulin sliding scale diabetic diet Code(s): E11.9 - TYPE 2 DIABETES MELLITUS WITHOUT COMPLICATIONS Qualifiers: Diabetes mellitus type: type 2 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 insulin use: without chcf use Diabetes mellitus complication status: with kidney complications Diabetes mellitus complication detail: with chronic kidney disease Chronic kidney disease stage: on chronic dialysis Qualified Code(s) : E11.22 - Type 2 diabetes mellitus with diabetic chronic kidney disease; N18.6 - End stage renal disease; Z99.2 - Dependence on renal dialysis (6) Hyperlipidemia Assessment/Plan: stable continue statin Code(s): E78.5 - HYPERLIPIDEMIA, UNSPECIFIED Qualifiers: Hyperlipidemia type: pure hypercholesterolemia Qualified Code(s): E78.00 - Pure hypercholesterolemia, unspecified; E78.0 - Pure hypercholesterolemia (7) GERD (gastroesophageal reflux disease) Assessment/Plan: stable Code(s): K21.9 - GASTRO-ESOPHAGEAL REFLUX DISEASE WITHOUT ESOPHAGITIS Qualifiers: Esophagitis presence: without esophagitis Qualified Code(s): K21.9 - Gastro -esophageal reflux disease without esophagitis
--- NOTE | 2018-09-06 14:13 | EKG ---
Test Reason : Blood Pressure : / mmHG Vent. Rate : 066 BPM Atrial Rate : 066 BPM P-R Int : 202 ms QRS Dur : 082 ms QT Int : 420 ms P-R-T Axes : 047 -28 101 degrees QTc Int : 440 ms POOR DATA QUALITY, INTERPRETATION MAY BE ADVERSELY AFFECTED SINUS RHYTHM WITH PREMATURE ATRIAL COMPLEXES MODERATE VOLTAGE CRITERIA FOR LVH, MAY BE NORMAL VARIANT CANNOT RULE OUT SEPTAL INFARCT (CITED ON OR BEFORE 12-AUG-2014) T WAVE ABNORMALITY, CONSIDER LATERAL ISCHEMIA ABNORMAL ECG WHEN COMPARED WITH ECG OF 18-JUL-2018 19:56, PREMATURE ATRIAL COMPLEXES ARE NOW PRESENT SERIAL CHANGES OF SEPTAL INFARCT PRESENT Confirmed by SAIGE PRIETO, ALVARO ([id number]) on 09/06/2018 2:13:33 PM Referred By: Confirmed By:ALVARO MOULTON MD
--- NOTE | 2018-09-06 14:58 | CONSULT ---
Consult - text type - Consultation Consultation Note: Renal Consult for ESRD on HD This is a 77 year old woman with hx of ESRD, DM, HTN, HLD s/p recent TMA of left foot for gas forming infection presented with worsening wound infection. PMhx: as above Allergies: NKDA Family Hx: NC social Hx: No T/A/D ROS: as per HPI Home Medications Medication Instructions Recorded Amlodipine Besylate [Norvasc -] 10 mg PO DAILY 08/02/14 Atorvastatin Ca [Lipitor] 10 mg PO HS 03/29/17 Labetalol HCl [Normodyne -] 300 mg PO DAILY 03/29/17 Sevelamer Carbonate [Renvela -] 800 mg PO TID 03/29/17 Acetaminophen [Tylenol .Regular 650 mg PO Q4H PRN tablet 08/06/18 Strength -] Clopidogrel Bisulfate [Clopidogrel] 75 mg PO DAILY #30 tablet 08/06/18 Calcium Acetate [Phoslo -] 667 mg PO TID 08/23/18 Collagenase Clostridium Hist. 1 applic TP DAILY 08/23/18 [Santyl] Ferrous Sulfate 325 mg PO DAILY 08/23/18 Vital Signs Temperature 98.0 F 09/06/18 13:36 Pulse Rate 66 09/06/18 13:36 Respiratory Rate 18 09/06/18 13:36 Blood Pressure 140/63 09/06/18 13:36 O2 Sat by Pulse Oximetry (%) 96 09/06/18 13:36 Intake & Output 09/03/18 09/04/18 09/05/18 09/06/18 23:59 23:59 23:59 23:59 Weight 67.3 kg CBC, BMP 09/06/18 10:30 09/06/18 11:25 Current Medications Heparin Sodium (Porcine) (Heparin -) 5,000 unit SQ Q8H-IV NOE Sodium Chloride (Normal Saline -) 250 mls @ 3,000 mls/hr IV PRN PRN PRN Reason: Hypotension during Dialysis Stop: 09/07/18 14:53 Vancomycin HCl 500 mg/ (Dextrose) 100 mls @ 100 mls/hr IVPB ONCE ONE; Protocol Stop: 09/06/18 15:53 77 year old woman with hx of ESRD, DM, HTN, HLD s/p recent TMA of left foot for gas forming infection presented with worsening wound infection. #ESRD on HD #LE Wound infection #HTN #DM For dialysis today as inpatient Will redose Vanco 500mg post HD Podiatry and vascular follow up Dose all meds for intermittent HD Asa Smith DO
--- NOTE | 2018-09-06 14:59 | CON.ID ---
Consult Consult Specialty:: infectious diseases Referred by:: Abigail Reason for Consultation:: breakdown of the wound of the left leg - History of Present Illness Chief Complaint: brek down of the left foot wound with slough History of Present Illness: 77 year old female with PMH of ESRD on HD, NIDDM, HTN, HLD, recent transmetatarsal amputation of L foot 3rd 4th 5th digits on 08/03/18 presents with wound break down to left 2nd digit. Pt was discharged to SNF last admission and was following up with at Wound center, he noticed progressive changes to the 2nd toe and sent pt to the ED for admission. Pt reports she is feeling well, without any complaint. Denies any chest pain, sob, dizziness, lightheadedness, fever/chills, abdominal pain, n/v/d, dysuria, numbness/tingling, worsening lower extremities pain. patient was worked and on the left foot you ahve dorsalis present but post tibial absent patients wound has completely broken down and there is slough in the wound - History Source History Provided By: Patient Limitations to Obtaining History: No Limitations - Past Medical History Cardio/Vascular: Yes: HTN, Hyperlipdemia Gastrointestinal: Yes: GERD Renal/: Yes: Renal Failure, Hemodialysis Endocrine: Yes: Diabetes Mellitus - Past Surgical History Past Surgical History: Yes: AV Fistula/Graft, Hysterectomy, Joint Replacement ( R knee), Oopherectomy - Alcohol/Substance Use Hx Alcohol Use: No History of Substance Use: reports: None - Smoking History Smoking history: Unknown if ever smoked Have you smoked in the past 12 months: No Aproximately how many cigarettes per day: 0 - Social History Usual Living Arrangement: With Child ADL: Support Services History of Recent Travel: No Home Medications - Allergies Allergies/Adverse Reactions: Allergies Allergy/AdvReac Type Severity Reaction Status Date / Time No Known Drug Allergies Allergy Verified 09/06/18 10:08 - Home Medications Home Medications: Ambulatory Orders Amlodipine Besylate [Norvasc -] 10 mg PO DAILY 08/02/14 Atorvastatin Ca [Lipitor] 10 mg PO HS 03/29/17 Labetalol HCl [Normodyne -] 300 mg PO DAILY 03/29/17 Sevelamer Carbonate [Renvela -] 800 mg PO TID 03/29/17 Acetaminophen [Tylenol .Regular Strength -] 650 mg PO Q4H PRN tablet 08/06/18 Clopidogrel Bisulfate [Clopidogrel] 75 mg PO DAILY #30 tablet 08/06/18 Calcium Acetate [Phoslo -] 667 mg PO TID 08/23/18 Collagenase Clostridium Hist. [Santyl] 1 applic TP DAILY 08/23/18 Ferrous Sulfate 325 mg PO DAILY 08/23/18 Family Disease History - Family Disease History Family Disease History: Diabetes: Sister, Heart Disease: Sister, Other: Mother ( hypertension) Review of Systems - Review of Systems Constitutional: reports: No Symptoms Eyes: reports: No Symptoms HENT: reports: No Symptoms Neck: reports: No Symptoms Cardiovascular: reports: No Symptoms Respiratory: reports: No Symptoms Gastrointestinal: reports: No Symptoms Genitourinary: reports: No Symptoms Musculoskeletal: reports: Muscle Pain, Other Integumentary: reports: Erythema, Wound (break down) Endocrine: reports: No Symptoms Hematology/Lymphatic: reports: No Symptoms Psychiatric: reports: No Symptoms Physical Exam Vital Signs: Vital Signs Temperature 98.0 F 09/06/18 13:36 Pulse Rate 66 09/06/18 13:36 Respiratory Rate 18 09/06/18 13:36 Blood Pressure 140/63 09/06/18 13:36 O2 Sat by Pulse Oximetry (%) 96 09/06/18 13:36 Constitutional: Yes: Well Nourished, No Distress, Calm Cardiovascular: Yes: Regular Rate and Rhythm Respiratory: Yes: Regular, CTA Bilaterally Gastrointestinal: Yes: Normal Bowel Sounds, Soft Musculoskeletal: Yes: Other Extremities: Yes: Erythema (left foot) Integumentary: Yes: Other (wound break down) Wound/Incision: Yes: Open to air, Other (breakdown of the wound) Neurological: Yes: Alert, Oriented Psychiatric: Yes: Alert, Oriented Labs: CBC, BMP 09/06/18 10:30 09/06/18 11:25 Imaging - Results Chest X-ray: Report Reviewed, Image Reviewed Cat Scan: Report Reviewed, Image Reviewed Assessment/Plan Problem List - Problems (1) Gangrene Code(s): I96 - GANGRENE, NOT ELSEWHERE CLASSIFIED (2) ESRD (end stage renal disease) on dialysis Code(s): N18.6 - END STAGE RENAL DISEASE; Z99.2 - DEPENDENCE ON RENAL DIALYSIS (3) Calciphylaxis Code(s): E83.59 - OTHER DISORDERS OF CALCIUM METABOLISM (4) Hypertension Code(s): I10 - ESSENTIAL (PRIMARY) HYPERTENSION Qualifiers: Hypertension type: essential hypertension Qualified Code(s): I10 - Essential (primary) hypertension (5) Diabetes Code(s): E11.9 - TYPE 2 DIABETES MELLITUS WITHOUT COMPLICATIONS Qualifiers: Diabetes mellitus type: type 2 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 use: without care home use Diabetes mellitus complication status: with kidney complications Diabetes mellitus complication detail: with chronic kidney disease Chronic kidney disease stage: on chronic dialysis Qualified Code(s) : E11.22 - Type 2 diabetes mellitus with diabetic chronic kidney disease; N18.6 - End stage renal disease; Z99.2 - Dependence on renal dialysis (6) Hyperlipidemia Code(s): E78.5 - HYPERLIPIDEMIA, UNSPECIFIED Qualifiers: Hyperlipidemia type: pure hypercholesterolemia Qualified Code(s): E78.00 - Pure hypercholesterolemia, unspecified; E78.0 - Pure hypercholesterolemia (7) GERD (gastroesophageal reflux disease) Code(s): K21.9 - GASTRO-ESOPHAGEAL REFLUX DISEASE WITHOUT ESOPHAGITIS Qualifiers: Esophagitis presence: without esophagitis Qualified Code(s): K21.9 - Gastro -esophageal reflux disease without esophagitis plan patient started on iv abx will continue zosyn await for vascular and podiatry to see the patient wound care rest as per the team
[2018-09-06] MEDS ORDERED: amLODIPine BESYLATE 10 MG TABLET (FP) PO SCH (15:15)
[2018-09-06] MEDS ORDERED: LABETALOL HCL 200 MG TABLET (FP) PO SCH (15:15)
[2018-09-06] MEDS ORDERED: SODIUM CHLORIDE 250 ML IV PRN (16:36)
[2018-09-06] MEDS ORDERED: VANCOMYCIN 500 MG in DEXTROSE 5%-WATER - 100 ML IVPB ONE (16:45)
--- NOTE | 2018-09-06 16:48 | PN ---
Progress Note (short form) - Note Progress Note: Surgery 77 year old female with PMH of ESRD on HD (t,th,s), NIDDM, HTN, HLD, s/p transmetatarsal amputation of L foot digits 3-5 on 08/03/[address] Rosa presents with poor wound healing,gangrenous changes to left 2nd digit and increasing pain. Pt was discharged to SNF last admission and was following up with in wound care center, he noticed progressive changes to the 2nd toe and sent pt to the ED for admission. Pt reports she is feeling well, without any complaint. Denies any chest pain, sob, dizziness, lightheadedness, fever/chills, abdominal pain, n/v/d, dysuria, numbness/tingling, worsening lower extremities pain. She has been standing to transfer but does not ambulate. Vital Signs Temp 98 F 09/06/18 15:30 Pulse 65 09/06/18 15:35 Resp 18 09/06/18 15:35 BP 171/92 H 09/06/18 15:35 Pulse Ox 96 09/06/18 13:36 Intake & Output 09/05/18 09/06/18 09/06/18 23:59 11:59 23:59 Weight 148 lb 5.938 oz 154 lb 11.2 oz Other: Height 5 ft 5 in 5 ft 4 in Body Mass Index (BMI) 24.7 26.5 Weight Measurement Method Patient Lift Scale CBC, BMP 09/06/18 10:30 09/06/18 11:25 PE: A&Ox3 unlabored resp on RA Left LE palpable popliteal pulse, leg and foot warm to touch, compartments soft and supple and non-tender, left foot with wound extending from base of 5th metatarsal to 2nd web space. Wound 8x1.5x0.5cm with fibrinous tissue seen at base with necrotic boarders mostly at the base and dry gangrene changes extending from medial aspect of 2nd toe. Bogginess and pain to palpation over plantar surface. No active d/c or significant foul odor. Strong signal over DP with doppler, no doppler signal over PT. Right LE compartments soft, supple and non-tender, leg and foot warm to touch with no lesions, gry dangrene changes over 4th toe with no open wounds, strong doppler signal over DP and PT. <Yamilex Pope - Last Filed: 09/06/18 16:55> - Note Progress Note: Patient treated by Dr. Rodriguez with recent angiogram. Severe tibial disease. No evidence for acute change in leg. Dr. Rodriguez will see on Monday. <Jose Luis Amato - Last Filed: 09/07/18 10:25> Problem List - Problems (1) Wound infection Assessment/Plan: 77 yo s/p L toe 3-5 amputations with poor wound healing wound, right 4th toe changes with no evidence for vascular intervention. 1) All wound care and surgical debridement per podiatry 2) HD per renal 3) IV ABX per ID 4) Off load pressure sensitive area 5) Pain control Evaluation and plan discussed with Dr Amato Code(s): T14.8XXA - OTHER INJURY OF UNSPECIFIED BODY REGION, INITIAL ENCOUNTER; L08.9 - LOCAL INFECTION OF THE SKIN AND SUBCUTANEOUS TISSUE, UNSP <Yamilex Pope - Last Filed: 09/06/18 16:55>
[2018-09-06] MEDS ORDERED: CALCIUM ACETATE 667 MG CAPSULE (FP) PO SCH (17:30)
[2018-09-06] MEDS ORDERED: SEVELAMER CARBONATE 800 MG TAB (FP) PO SCH (17:30)
[2018-09-06 20:23] LABS: CREATININE 1.8 mg/dL (0.55-1.3)
[2018-09-06] MEDS: SEVELAMER CARBONATE 800 MG TAB (FP) PO SCH (21:05)
[2018-09-06] MEDS: LABETALOL HCL 100 MG TABLET (FP) PO SCH (21:05)
[2018-09-06] MEDS: amLODIPine BESYLATE 10 MG TABLET (FP) PO SCH (21:05)
[2018-09-06] MEDS: HEPARIN NA (PORCINE) 5,000 UNITS/ML 1ML VIAL SQ SCH (21:05)
[2018-09-06] MEDS: CALCIUM ACETATE 667 MG CAPSULE (FP) PO SCH (21:05)
[2018-09-06] MEDS: ATORVASTATIN CA 10 MG TABLET (FP) PO SCH (21:05)
[2018-09-06] MEDS: INSULIN SLIDING SCALE (NOVOLOG) 1 VIAL SQ SCH (21:53)
[2018-09-07] MEDS: HEPARIN NA (PORCINE) 5,000 UNITS/ML 1ML VIAL SQ SCH ×3 (05:36→21:13)
[2018-09-07] MEDS: INSULIN SLIDING SCALE (NOVOLOG) 1 VIAL SQ SCH ×4 (06:26→21:15)
[2018-09-07 07:48] LABS: EOS % 4.4 % (0-4.5); HEMATOCRIT 35.3 % (32.4-45.2); HEMOGLOBIN 11.4 GM/dL (10.7-15.3); LYMPH % 22.8 % (8-40); MCHC 32.3 g/dl (32.0-36.0); MEAN CELL VOLUME 92.9 fl (80-96); MEAN PLT VOLUME 8.1 fl (7.5-11.1); MONO % 10.3 % (3.8-10.2); NEUT % 61.5 % (42.8-82.8); PLATELET COUNT 189 K/MM3 (134-434); RDW 18.1 % (11.6-15.6); WHITE BLOOD COUNT 4.6 K/mm3 (4.0-10.0)
[2018-09-07 08:18] LABS: INR 1.11 (0.83-1.09); PROTHROMBIN TIME (PATIENT) 13.1 SEC (9.7-13.0)
[2018-09-07] MEDS: CALCIUM ACETATE 667 MG CAPSULE (FP) PO SCH ×3 (09:16→18:07)
[2018-09-07] MEDS: SEVELAMER CARBONATE 800 MG TAB (FP) PO SCH ×3 (09:16→18:13)
[2018-09-07] MEDS ORDERED: COLLAGENASE CLOSTRIDIUM HIST. 30 GRAMS TUBE TP SCH (10:00)
[2018-09-07 10:04] LABS: ANION GAP 8 MMOL/L (8-16); BLOOD UREA NITROGEN 28 mg/dL (7-18); CALCIUM 9.8 mg/dL (8.5-10.1); CHLORIDE 97 mmol/L (98-107); CO2 33 mmol/L (21-32); CREATININE 3.2 mg/dL (0.55-1.3); GLUCOSE,RANDOM 79 mg/dL (74-106); MAGNESIUM 2.3 mg/dL (1.8-2.4); PHOSPHOROUS 2.4 mg/dL (2.5-4.9); POTASSIUM 3.5 mmol/L (3.5-5.1); SODIUM 137 mmol/L (136-145)
--- NOTE | 2018-09-07 10:25 | CONSULT ---
Consult Consult Specialty:: Podiatry Reason for Consultation:: Gangarene left foot - History of Present Illness Chief Complaint: Gangarene left foot History of Present Illness: s/p amputation tma 3,4,5 left foot - History Source History Provided By: Medical Record Limitations to Obtaining History: Poor Historian - Past Medical History Cardio/Vascular: Yes: HTN, Hyperlipdemia Gastrointestinal: Yes: GERD Renal/: Yes: Renal Failure, Hemodialysis ...: No Endocrine: Yes: Diabetes Mellitus - Past Surgical History Past Surgical History: Yes: AV Fistula/Graft, Hysterectomy, Joint Replacement ( R knee), Oopherectomy - Alcohol/Substance Use Hx Alcohol Use: No History of Substance Use: reports: None - Smoking History Smoking history: Never smoked Have you smoked in the past 12 months: No Aproximately how many cigarettes per day: 0 - Social History Usual Living Arrangement: With Child ADL: Support Services History of Recent Travel: No Home Medications - Allergies Allergies/Adverse Reactions: Allergies Allergy/AdvReac Type Severity Reaction Status Date / Time No Known Drug Allergies Allergy Verified 09/06/18 10:08 - Home Medications Home Medications: Ambulatory Orders Amlodipine Besylate [Norvasc -] 10 mg PO DAILY 08/02/14 Atorvastatin Ca [Lipitor] 10 mg PO HS 03/29/17 Labetalol HCl [Normodyne -] 300 mg PO BID 03/29/17 Sevelamer Carbonate [Renvela -] 800 mg PO TID 03/29/17 Acetaminophen [Tylenol .Regular Strength -] 650 mg PO Q4H PRN tablet 08/06/18 Clopidogrel Bisulfate [Clopidogrel] 75 mg PO DAILY #30 tablet 08/06/18 Calcium Acetate [Phoslo -] 667 mg PO TID 08/23/18 Collagenase Clostridium Hist. [Santyl] 1 applic TP DAILY 08/23/18 Ferrous Sulfate 325 mg PO DAILY 08/23/18 Family Disease History - Family Disease History Family Disease History: Diabetes: Sister, Heart Disease: Sister, Other: Mother ( hypertension) Physical Exam Vital Signs: Vital Signs Temperature 99.2 F 09/07/18 03:00 Pulse Rate 72 09/07/18 03:00 Respiratory Rate 18 09/07/18 03:00 Blood Pressure 141/76 09/07/18 03:00 O2 Sat by Pulse Oximetry (%) 97 09/06/18 21:00 Extremities: Yes: Amputation, Cold, Delayed Capillary Refill Peripheral Pulses WNL: No (pvd) Wound/Incision: Yes: Other (dehiscence with necrosis and gangarene extending to big toe, +drainage proximal wound lateral aspect) Labs: CBC, BMP 09/07/18 06:00 09/07/18 08:45 Imaging - Results X-ray: Image Reviewed Cat Scan: Report Reviewed Assessment/Plan progressive gangarene Awaiting possible vascular intervention. Read and appreciated Surgical PA for Lm note. Referred back to Dr. Rodriguez who will see patient Monday. Bhanuyl to wound daily after wound c&S. Will follow. IVABX as per ID. Wound C &S.
[2018-09-07] MEDS: LABETALOL HCL 100 MG TABLET (FP) PO SCH ×2 (10:28→21:13)
[2018-09-07] MEDS: amLODIPine BESYLATE 10 MG TABLET (FP) PO SCH (10:28)
[2018-09-07] MEDS ORDERED: POTASSIUM CHLORIDE TABS 20 MEQ TABLET.ER (FP) PO ONE (11:04)
--- NOTE | 2018-09-07 11:35 | PN ---
Progress Note, Physician Chief Complaint: Pt sitting in chair in no acute distress. Denies any chest pain, sob, n/v/d - Current Medication List Current Medications: Active Medications Amlodipine Besylate (Norvasc -) 10 mg PO DAILY [facility] Last Admin: 09/07/18 10:28 Dose: 10 mg Atorvastatin Calcium (Lipitor -) 10 mg PO HS [facility] Last Admin: 09/06/18 21:05 Dose: 10 mg Calcium Acetate (Phoslo -) 667 mg PO TIDCM [facility] Last Admin: 09/07/18 09:16 Dose: 667 mg Clopidogrel Bisulfate (Plavix -) 75 mg PO DAILY [facility] Collagenase (Santyl -) 1 applic TP DAILY [facility]; Protocol Heparin Sodium (Porcine) (Heparin -) 5,000 unit SQ TID [facility] Last Admin: 09/07/18 05:36 Dose: 5,000 unit Sodium Chloride (Normal Saline -) 250 mls @ 3,000 mls/hr IV PRN PRN PRN Reason: Hypotension during Dialysis Stop: 09/07/18 16:35 Insulin Aspart (Novolog Vial Sliding Scale -) 1 vial SQ ACHS [facility]; Protocol Last Admin: 09/07/18 06:26 Dose: Not Given Labetalol HCl (Normodyne -) 300 mg PO BID [facility] Last Admin: 09/07/18 10:28 Dose: 300 mg Sevelamer Carbonate (Renvela -) 800 mg PO TIDCM [facility] Last Admin: 09/07/18 09:16 Dose: 800 mg - Objective Vital Signs: Vital Signs Temperature 98.4 F 09/07/18 10:26 Pulse Rate 69 09/07/18 10:26 Respiratory Rate 20 09/07/18 10:26 Blood Pressure 150/70 09/07/18 10:26 O2 Sat by Pulse Oximetry (%) 97 09/06/18 21:00 Constitutional: Yes: Well Nourished, No Distress, Calm Cardiovascular: Yes: Regular Rate and Rhythm Respiratory: Yes: WNL, Regular, CTA Bilaterally. No: Accessory Muscle Use, SOB , Tachypnea, Wheezes Gastrointestinal: Yes: WNL, Normal Bowel Sounds, Soft. No: Distention, Tenderness Genitourinary: Yes: WNL Extremities: Yes: WNL Edema: No Integumentary: Yes: Other (left foot wound) Wound/Incision: Yes: Dressing Dry and Intact Neurological: Yes: WNL, Alert, Oriented Psychiatric: Yes: WNL, Alert, Oriented Labs: CBC, BMP 09/07/18 06:00 09/07/18 08:45 INR, PTT INR 1.11 (0.83-1.09) H 09/07/18 06:00 Assessment/Plan (1) Wound infection Assessment/Plan: worsening discoloration to left 2nd/1st digit CT LLE- edematous changes of soft tissue of foot, low suspicion for osteomyelitis antibx per ID evaluated by vascular wound care/debridement per podiatry Code(s): T14.8XXA - OTHER INJURY OF UNSPECIFIED BODY REGION, INITIAL ENCOUNTER; L08.9 - LOCAL INFECTION OF THE SKIN AND SUBCUTANEOUS TISSUE, UNSP (2) ESRD (end stage renal disease) on dialysis Assessment/Plan: nephrology following Code(s): N18.6 - END STAGE RENAL DISEASE; Z99.2 - DEPENDENCE ON RENAL DIALYSIS (3) Calciphylaxis Assessment/Plan: chronic nephrology following Code(s): E83.59 - OTHER DISORDERS OF CALCIUM METABOLISM (4) Hypertension Assessment/Plan: controlled continue home meds Code(s): I10 - ESSENTIAL (PRIMARY) HYPERTENSION Qualifiers: Hypertension type: essential hypertension Qualified Code(s): I10 - Essential (primary) hypertension (5) Diabetes Assessment/Plan: BGM Insulin sliding scale diabetic diet Code(s): E11.9 - TYPE 2 DIABETES MELLITUS WITHOUT COMPLICATIONS Qualifiers: Diabetes mellitus type: type 2 Diabetes mellitus alf insulin use: without alf use Diabetes mellitus complication status: with kidney complications Diabetes mellitus complication detail: with chronic kidney disease Chronic kidney disease stage: on chronic dialysis Qualified Code(s) : E11.22 - Type 2 diabetes mellitus with diabetic chronic kidney disease; N18.6 - End stage renal disease; Z99.2 - Dependence on renal dialysis (6) Hyperlipidemia Assessment/Plan: stable continue statin Code(s): E78.5 - HYPERLIPIDEMIA, UNSPECIFIED Qualifiers: Hyperlipidemia type: pure hypercholesterolemia Qualified Code(s): E78.00 - Pure hypercholesterolemia, unspecified; E78.0 - Pure hypercholesterolemia (7) GERD (gastroesophageal reflux disease) Assessment/Plan: stable Code(s): K21.9 - GASTRO-ESOPHAGEAL REFLUX DISEASE WITHOUT ESOPHAGITIS Qualifiers: Esophagitis presence: without esophagitis Qualified Code(s): K21.9 - Gastro -esophageal reflux disease without esophagitis
[2018-09-07] MEDS ORDERED: INSULIN (NOVOLOG) ASPART 100 UNITS/ML 10ML VIAL ONE (11:45)
[2018-09-07] MEDS: ACETAMINOPHEN 325 MG TABLET (FP) PO PRN (12:46)
--- NOTE | 2018-09-07 13:36 | PN ---
Progress Note, Physician History of Present Illness: stable no complaints wounds looks dry - Current Medication List Current Medications: Active Medications Acetaminophen (Tylenol -) 650 mg PO Q6H PRN PRN Reason: PAIN LEVEL 1-5 Last Admin: 09/07/18 12:46 Dose: 650 mg Amlodipine Besylate (Norvasc -) 10 mg PO DAILY [facility] Last Admin: 09/07/18 10:28 Dose: 10 mg Atorvastatin Calcium (Lipitor -) 10 mg PO HS [facility] Last Admin: 09/06/18 21:05 Dose: 10 mg Calcium Acetate (Phoslo -) 667 mg PO TIDCM [facility] Last Admin: 09/07/18 12:31 Dose: 667 mg Clopidogrel Bisulfate (Plavix -) 75 mg PO DAILY [facility] Collagenase (Santyl -) 1 applic TP DAILY [facility]; Protocol Heparin Sodium (Porcine) (Heparin -) 5,000 unit SQ TID [facility] Last Admin: 09/07/18 05:36 Dose: 5,000 unit Sodium Chloride (Normal Saline -) 250 mls @ 3,000 mls/hr IV PRN PRN PRN Reason: Hypotension during Dialysis Stop: 09/07/18 16:35 Insulin Aspart (Novolog Vial Sliding Scale -) 1 vial SQ ACHS [facility]; Protocol Last Admin: 09/07/18 12:06 Dose: Not Given Labetalol HCl (Normodyne -) 300 mg PO BID [facility] Last Admin: 09/07/18 10:28 Dose: 300 mg Sevelamer Carbonate (Renvela -) 800 mg PO TIDCM [facility] Last Admin: 09/07/18 12:31 Dose: 800 mg - Objective Vital Signs: Vital Signs Temperature 98.4 F 09/07/18 10:26 Pulse Rate 69 09/07/18 10:26 Respiratory Rate 20 09/07/18 10:26 Blood Pressure 150/70 09/07/18 10:26 O2 Sat by Pulse Oximetry (%) 97 09/06/18 21:00 Constitutional: Yes: No Distress, Calm Cardiovascular: Yes: S1, S2 Respiratory: Yes: Regular, CTA Bilaterally Gastrointestinal: Yes: Normal Bowel Sounds, Soft Musculoskeletal: Yes: WNL Extremities: Yes: Other Wound/Incision: Yes: Dressing Dry and Intact, Other Neurological: Yes: Alert, Oriented Psychiatric: Yes: Alert, Oriented Labs: CBC, BMP 09/07/18 06:00 09/07/18 08:45 INR, PTT INR 1.11 (0.83-1.09) H 09/07/18 06:00 Assessment/Plan Problem List - Problems (1) Gangrene Code(s): I96 - GANGRENE, NOT ELSEWHERE CLASSIFIED (2) ESRD (end stage renal disease) on dialysis Code(s): N18.6 - END STAGE RENAL DISEASE; Z99.2 - DEPENDENCE ON RENAL DIALYSIS (3) Calciphylaxis Code(s): E83.59 - OTHER DISORDERS OF CALCIUM METABOLISM (4) Hypertension Code(s): I10 - ESSENTIAL (PRIMARY) HYPERTENSION Qualifiers: Hypertension type: essential hypertension Qualified Code(s): I10 - Essential (primary) hypertension (5) Diabetes Code(s): E11.9 - TYPE 2 DIABETES MELLITUS WITHOUT COMPLICATIONS Qualifiers: Diabetes mellitus type: type 2 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 insulin use: without senior living use Diabetes mellitus complication status: with kidney complications Diabetes mellitus complication detail: with chronic kidney disease Chronic kidney disease stage: on chronic dialysis Qualified Code(s) : E11.22 - Type 2 diabetes mellitus with diabetic chronic kidney disease; N18.6 - End stage renal disease; Z99.2 - Dependence on renal dialysis (6) Hyperlipidemia Code(s): E78.5 - HYPERLIPIDEMIA, UNSPECIFIED Qualifiers: Hyperlipidemia type: pure hypercholesterolemia Qualified Code(s): E78.00 - Pure hypercholesterolemia, unspecified; E78.0 - Pure hypercholesterolemia (7) GERD (gastroesophageal reflux disease) Code(s): K21.9 - GASTRO-ESOPHAGEAL REFLUX DISEASE WITHOUT ESOPHAGITIS Qualifiers: Esophagitis presence: without esophagitis Qualified Code(s): K21.9 - Gastro -esophageal reflux disease without esophagitis plan continue [facility] wound care vascular to see the patient rest as per the team
--- NOTE | 2018-09-07 13:46 | PN ---
Progress Note (short form) - Note Progress Note: Renal follow up for ESRD on HD Pt seen and examined at the bedside no acute complaints no sob, cp, abd pain No fever or chills s/p Hd yesterday Vital Signs Temperature 98.4 F 09/07/18 10:26 Pulse Rate 69 09/07/18 10:26 Respiratory Rate 20 09/07/18 10:26 Blood Pressure 150/70 09/07/18 10:26 O2 Sat by Pulse Oximetry (%) 97 09/06/18 21:00 Intake & Output 09/04/18 09/05/18 09/06/18 09/07/18 23:59 23:59 23:59 23:59 Weight 70.171 kg NAD awake and alert no LE edema CBC, BMP 09/07/18 06:00 09/07/18 08:45 Current Medications Acetaminophen (Tylenol -) 650 mg PO Q6H PRN PRN Reason: PAIN LEVEL 1-5 Last Admin: 09/07/18 12:46 Dose: 650 mg Amlodipine Besylate (Norvasc -) 10 mg PO DAILY [facility] Last Admin: 09/07/18 10:28 Dose: 10 mg Atorvastatin Calcium (Lipitor -) 10 mg PO HS [facility] Last Admin: 09/06/18 21:05 Dose: 10 mg Calcium Acetate (Phoslo -) 667 mg PO TIDCM [facility] Last Admin: 09/07/18 12:31 Dose: 667 mg Clopidogrel Bisulfate (Plavix -) 75 mg PO DAILY [facility] Collagenase (Santyl -) 1 applic TP DAILY [facility]; Protocol Heparin Sodium (Porcine) (Heparin -) 5,000 unit SQ TID [facility] Last Admin: 09/07/18 05:36 Dose: 5,000 unit Sodium Chloride (Normal Saline -) 250 mls @ 3,000 mls/hr IV PRN PRN PRN Reason: Hypotension during Dialysis Stop: 09/07/18 16:35 Insulin Aspart (Novolog Vial Sliding Scale -) 1 vial SQ ACHS [facility]; Protocol Last Admin: 09/07/18 12:06 Dose: Not Given Labetalol HCl (Normodyne -) 300 mg PO BID [facility] Last Admin: 09/07/18 10:28 Dose: 300 mg Sevelamer Carbonate (Renvela -) 800 mg PO TIDCM [facility] Last Admin: 09/07/18 12:31 Dose: 800 mg CBC, BMP 09/07/18 06:00 09/07/18 08:45 Current Medications Acetaminophen (Tylenol -) 650 mg PO Q6H PRN PRN Reason: PAIN LEVEL 1-5 Last Admin: 09/07/18 12:46 Dose: 650 mg Amlodipine Besylate (Norvasc -) 10 mg PO DAILY [facility] Last Admin: 09/07/18 10:28 Dose: 10 mg Atorvastatin Calcium (Lipitor -) 10 mg PO HS [facility] Last Admin: 09/06/18 21:05 Dose: 10 mg Calcium Acetate (Phoslo -) 667 mg PO TIDCM [facility] Last Admin: 09/07/18 12:31 Dose: 667 mg Clopidogrel Bisulfate (Plavix -) 75 mg PO DAILY [facility] Collagenase (Santyl -) 1 applic TP DAILY [facility]; Protocol Heparin Sodium (Porcine) (Heparin -) 5,000 unit SQ TID [facility] Last Admin: 09/07/18 05:36 Dose: 5,000 unit Sodium Chloride (Normal Saline -) 250 mls @ 3,000 mls/hr IV PRN PRN PRN Reason: Hypotension during Dialysis Stop: 09/07/18 16:35 Insulin Aspart (Novolog Vial Sliding Scale -) 1 vial SQ ACHS [facility]; Protocol Last Admin: 09/07/18 12:06 Dose: Not Given Labetalol HCl (Normodyne -) 300 mg PO BID [facility] Last Admin: 09/07/18 10:28 Dose: 300 mg Sevelamer Carbonate (Renvela -) 800 mg PO TIDCM [facility] Last Admin: 09/07/18 12:31 Dose: 800 mg 77 year old woman with hx of ESRD, DM, HTN, HLD s/p recent TMA of left foot for gas forming infection presented with worsening wound infection. #ESRD on HD #LE Wound infection #HTN #DM no acute indication for CHEMISTRY INTERN today next treatment due tomorrow will continue Vanco with HD dosed by levels continue phos binders podiatry follow up Asa Smith DO
[2018-09-07] MEDS ORDERED: PT OWN MED DRAWER 7, Y5N ONE ×2 (18:51→21:06)
[2018-09-07] MEDS: ATORVASTATIN CA 10 MG TABLET (FP) PO SCH (21:13)
[2018-09-07] MEDS: COLLAGENASE CLOSTRIDIUM HIST. 30 GRAMS TUBE TP SCH (22:20)
[2018-09-08] MEDS ORDERED: PIPERACILLIN/TAZOBACTAM 2.25 GM VIAL IVPB ONE ×3 (01:21→16:05)
[2018-09-08] MEDS ORDERED: DEXTROSE 5%-WATER - 50 ML IVPB ONE ×3 (01:21→16:05)
[2018-09-08] MEDS: PIPERACILLIN/TAZOB 2.25 GM 2.25 GM in DEXTROSE 5%-WATER - 50 ML IVPB SCH ×3 (02:27→20:29)
[2018-09-08 04:13] LABS: HEP.C VIRUS AB 0.1 s/co ratio (0.0-0.9)
[2018-09-08] MEDS: HEPARIN NA (PORCINE) 5,000 UNITS/ML 1ML VIAL SQ SCH ×3 (06:14→22:12)
[2018-09-08] MEDS: INSULIN SLIDING SCALE (NOVOLOG) 1 VIAL SQ SCH ×4 (06:17→22:19)
[2018-09-08] MEDS ORDERED: SODIUM CHLORIDE 250 ML IV PRN (07:38)
[2018-09-08] MEDS: CALCIUM ACETATE 667 MG CAPSULE (FP) PO SCH ×3 (08:45→17:35)
[2018-09-08] MEDS: SEVELAMER CARBONATE 800 MG TAB (FP) PO SCH ×3 (08:45→17:35)
[2018-09-08 09:00] LABS: BASO % 0.9 % (0-2.0); EOS % 3.8 % (0-4.5); HEMATOCRIT 34.6 % (32.4-45.2); HEMOGLOBIN 11.3 GM/dL (10.7-15.3); LYMPH % 27.5 % (8-40); MCH 30.1 pg (25.7-33.7); MCHC 32.8 g/dl (32.0-36.0); MEAN CELL VOLUME 91.8 fl (80-96); MEAN PLT VOLUME 7.9 fl (7.5-11.1); MONO % 10.5 % (3.8-10.2); NEUT % 57.3 % (42.8-82.8); PLATELET COUNT 191 K/MM3 (134-434); RBC 3.77 M/mm3 (3.60-5.2); RDW 17.9 % (11.6-15.6); WHITE BLOOD COUNT 4.1 K/mm3 (4.0-10.0)
[2018-09-08 09:30] LABS: ANION GAP 7 MMOL/L (8-16); BLOOD UREA NITROGEN 37 mg/dL (7-18); CALCIUM 9.4 mg/dL (8.5-10.1); CHLORIDE 95 mmol/L (98-107); CO2 32 mmol/L (21-32); CREATININE 4.1 mg/dL (0.55-1.3); GLUCOSE,RANDOM 80 mg/dL (74-106); POTASSIUM 4.1 mmol/L (3.5-5.1); SODIUM 134 mmol/L (136-145)
[2018-09-08] MEDS: ACETAMINOPHEN 325 MG TABLET (FP) PO PRN (10:12)
--- NOTE | 2018-09-08 11:19 | PN ---
Physical Exam: SUBJECTIVE: Patient seen and examined, no new foot pain, fevers, chills or new concerns. OBJECTIVE: Vital Signs Period Temp Pulse Resp BP Sys/Jha Pulse Ox Last 24 Hr 97.3 F-98.3 F 62-72 18-20 121-153/60-101 97 GENERAL: The patient is awake, alert, and fully oriented, in no acute distress. HEAD: Normal with no signs of trauma. EYES: PERRL, extraocular movements intact, sclera anicteric, conjunctiva clear. No ptosis. ENT: Ears normal, nares patent, oropharynx clear without exudates, moist mucous membranes. NECK: Trachea midline, full range of motion, supple. LUNGS: Breath sounds equal, clear to auscultation bilaterally, no wheezes, no crackles, no accessory muscle use. HEART: Regular rate and rhythm, S1, S2 ABDOMEN: Soft, nontender, nondistended, normoactive bowel sounds, no guarding, no rebound EXTREMITIES:left foot with wound base of 2nd digit with fibrinous base and some purulent discharge, dark skin discoloration around, unable to palpate left PT pulse, non tender, s/p amputation of left 3rd/4th/5th digits PSYCH: Normal mood, normal affect. SKIN: Warm, dry, normal turgor, no rashes or lesions noted Laboratory Results - last 24 hr 09/06/18 09/06/18 09/07/18 15:35 15:35 12:05 WBC RBC Hgb Hct MCV MCH MCHC RDW Plt Count MPV Absolute Neuts (auto) Neutrophils % Lymphocytes % Monocytes % Eosinophils % Basophils % Nucleated RBC % Sodium Potassium Chloride Carbon Dioxide Anion Gap BUN Creatinine Creat Clearance w eGFR POC Glucometer 85 Random Glucose Calcium Vancomycin Pre-Dose Hepatitis A IgM Ab Negative Hep Bs Antigen Negative Hep B Core IgM Ab Negative Hep C Ab Diagnostic <0.1 Hepatitis C Antibody 0.1 09/07/18 09/07/18 09/08/18 17:16 21:10 06:16 WBC RBC Hgb Hct MCV MCH MCHC RDW Plt Count MPV Absolute Neuts (auto) Neutrophils % Lymphocytes % Monocytes % Eosinophils % Basophils % Nucleated RBC % Sodium Potassium Chloride Carbon Dioxide Anion Gap BUN Creatinine Creat Clearance w eGFR POC Glucometer 67 76 77 Random Glucose Calcium Vancomycin Pre-Dose Hepatitis A IgM Ab Hep Bs Antigen Hep B Core IgM Ab Hep C Ab Diagnostic Hepatitis C Antibody 02/02/19 02/02/19 02/02/19 07:50 07:50 09:00 WBC 4.1 RBC 3.77 Hgb 11.3 Hct 34.6 MCV 91.8 MCH 30.1 MCHC 32.8 RDW 17.9 H Plt Count 191 MPV 7.9 Absolute Neuts (auto) 2.4 Neutrophils % 57.3 Lymphocytes % 27.5 D Monocytes % 10.5 H Eosinophils % 3.8 Basophils % 0.9 Nucleated RBC % 0 Sodium 134 L Potassium 4.1 Chloride 95 L Carbon Dioxide 32 Anion Gap 7 L BUN 37 H Creatinine 4.1 H Creat Clearance w eGFR 10.52 POC Glucometer Random Glucose 80 Calcium 9.4 Vancomycin Pre-Dose 11.6 L Hepatitis A IgM Ab Hep Bs Antigen Hep B Core IgM Ab Hep C Ab Diagnostic Hepatitis C Antibody Active Medications Generic Name Dose Route Start Last Admin Trade Name Freq PRN Reason Stop Dose Admin Acetaminophen 650 mg 09/07/18 12:26 09/08/18 10:12 Tylenol - PO 650 mg Q6H PRN Administration PAIN LEVEL 1-5 Amlodipine Besylate 10 mg 09/06/18 21:00 09/07/18 10:28 Norvasc - PO 10 mg DAILY NOE Administration Atorvastatin Calcium 10 mg 09/06/18 22:00 09/07/18 21:13 Lipitor - PO 10 mg HS NOE Administration Calcium Acetate 667 mg 09/06/18 21:00 09/08/18 08:45 Phoslo - PO 667 mg TIDCM NOE Administration Clopidogrel Bisulfate 75 mg 09/07/18 10:00 Plavix - PO DAILY NOE Collagenase 1 applic 09/07/18 10:00 09/07/18 22:20 Santyl - TP 1 applic DAILY NOE Administration Protocol Heparin Sodium (Porcine) 5,000 unit 09/06/18 22:00 09/08/18 06:14 Heparin - SQ 5,000 unit TID NOE Administration Piperacillin Sod/Tazobactam 50 mls @ 100 mls/hr 09/08/18 02:00 09/08/18 02:27 Sod 2.25 gm/ Dextrose IVPB 100 mls/hr Q8H-IV NOE Administration Protocol Sodium Chloride 250 mls @ 3,000 mls/hr 09/08/18 07:38 Normal Saline - IV 09/09/18 07:38 PRN PRN Hypotension during Dialysis Insulin Aspart 1 vial 09/06/18 22:00 09/08/18 06:17 Novolog Vial Sliding Scale - SQ Not Given ACHS [facility] Protocol Labetalol HCl 300 mg 09/06/18 22:00 09/07/18 21:13 Normodyne - PO 300 mg BID NOE Administration Sevelamer Carbonate 800 mg 09/06/18 21:00 09/08/18 08:45 Renvela - PO 800 mg TIDCM NOE Administration Microbiology 09/06/18 11:25 Blood - Peripheral Venous Blood Culture - Preliminary NO GROWTH OBTAINED AFTER 24 HOURS, INCUBATION TO CONTINUE FOR 4 DAYS. 09/06/18 10:30 Blood - Peripheral Venous Blood Culture - Preliminary NO GROWTH OBTAINED AFTER 24 HOURS, INCUBATION TO CONTINUE FOR 4 DAYS. ASSESSMENT/PLAN: 77 yof with PMHx of ESRD on HD, NIDDM, HTN, recent left 3rd/4th/5th toe amputation for gangrenous changes, followed by Dr. Paul at wound care s/p repeat debridement at the surgical wound site x 2, sent in for worsening left foot infection. -Left foot wound infection with gangrenous changes -Recent left 3rd/4th/5th toes amputation -ESRD on HD -Calciphylaxis -PAD -NIDDM -HTN Plan: Vascular surgery/podiatry input noted. Overall wound unchanged Zosyn/vancomycin per ID. s/p left tibial artery angioplasty with Dr. Rodriguez in 07/2018. HD per renal Continue plavix/statin/labetalol DVTPPX heparin Dispo pending clinical improvement and surgical plan Plan discussed with patient in detail, all questions answered. Visit type - Emergency Visit Emergency Visit: Yes ED Registration Date: 09/06/18 Care time: The patient presented to the Emergency Department on the above date and was hospitalized for further evaluation of their emergent condition. - New Patient This patient is new to me today: Yes Date on this admission: 09/08/18 - Critical Care Critical Care patient: No - Discharge Referral Referred to [facility] Med P.C.: No
[2018-09-08] MEDS: amLODIPine BESYLATE 10 MG TABLET (FP) PO SCH (13:35)
[2018-09-08] MEDS: CLOPIDOGREL BISULFATE 75 MG TABLET (FP) PO SCH (13:35)
[2018-09-08] MEDS: LABETALOL HCL 100 MG TABLET (FP) PO SCH ×2 (13:35→22:12)
--- NOTE | 2018-09-08 14:01 | PN ---
Progress Note (short form) - Note Progress Note: fu left foot. vss, tmax 99.9 +increasing gangrenous changes, +necrotic tissue, +drainage, -mal odor, wound culture pending gangarene Continue abx. Will decide with vascular best course of action due to her worsening pvd. Santyl dressing changes. Will follow.
--- NOTE | 2018-09-08 14:14 | PN ---
Progress Note, Physician Chief Complaint: The patient seen in her room. Had just returned from dialysis. Denies any new problems. History of Present Illness: 77 year old woman with hx of ESRD, DM, HTN, HLD S/p recent TMA of left foot for gas forming infection presented with worsening wound infection. - Current Medication List Current Medications: Active Medications Acetaminophen (Tylenol -) 650 mg PO Q6H PRN PRN Reason: PAIN LEVEL 1-5 Last Admin: 09/08/18 10:12 Dose: 650 mg Amlodipine Besylate (Norvasc -) 10 mg PO DAILY [facility] Last Admin: 09/08/18 13:35 Dose: 10 mg Atorvastatin Calcium (Lipitor -) 10 mg PO HS [facility] Last Admin: 09/07/18 21:13 Dose: 10 mg Calcium Acetate (Phoslo -) 667 mg PO TIDCM [facility] Last Admin: 09/08/18 13:33 Dose: 667 mg Clopidogrel Bisulfate (Plavix -) 75 mg PO DAILY [facility] Last Admin: 09/08/18 13:35 Dose: 75 mg Collagenase (Santyl -) 1 applic TP DAILY [facility]; Protocol Last Admin: 09/07/18 22:20 Dose: 1 applic Heparin Sodium (Porcine) (Heparin -) 5,000 unit SQ TID [facility] Last Admin: 09/08/18 06:14 Dose: 5,000 unit Piperacillin Sod/Tazobactam (Sod 2.25 gm/ Dextrose) 50 mls @ 100 mls/hr IVPB Q8H-IV NOE; Protocol Last Admin: 09/08/18 11:25 Dose: 100 mls/hr Sodium Chloride (Normal Saline -) 250 mls @ 3,000 mls/hr IV PRN PRN PRN Reason: Hypotension during Dialysis Stop: 09/09/18 07:38 Insulin Aspart (Novolog Vial Sliding Scale -) 1 vial SQ ACHS [facility]; Protocol Last Admin: 09/08/18 13:20 Dose: Not Given Labetalol HCl (Normodyne -) 300 mg PO BID [facility] Last Admin: 09/08/18 13:35 Dose: 300 mg Sevelamer Carbonate (Renvela -) 800 mg PO TIDCM [facility] Last Admin: 09/08/18 13:33 Dose: 800 mg - Objective Vital Signs: Vital Signs Temperature 98.0 F 09/08/18 09:05 Pulse Rate 62 09/08/18 12:45 Respiratory Rate 18 09/08/18 12:45 Blood Pressure 163/79 09/08/18 12:45 O2 Sat by Pulse Oximetry (%) 97 09/07/18 21:00 Constitutional: Yes: No Distress, Anxious Eyes: Yes: Conjunctiva Clear HENT: Yes: Normocephalic Neck: Yes: Trachea Midline Cardiovascular: Yes: Tachycardia Respiratory: Yes: CTA Bilaterally, Diminished Gastrointestinal: Yes: Normal Bowel Sounds, Soft Genitourinary: No: Bladder Distention, CVA Tenderness - Left, CVA Tenderness - Right Labs: CBC, BMP 09/08/18 07:50 09/08/18 07:50 INR, PTT INR 1.11 (0.83-1.09) H 09/07/18 06:00 Assessment/Plan 77 year old woman with hx of ESRD, DM, HTN, HLD S/p recent TMA of left foot for gas forming infection presented with worsening wound infection. The patient had amputation. Wound care. had HD earler. PLAN: Will continue the current regimen. IV Abx per schedule. TTS schedule for HD. Will follow. Ursula Echavarria MD
[2018-09-08] MEDS ORDERED: VANCOMYCIN 1 GRAM (PRE-DOCKED) 1,000 MG/250 ML BAG IVPB ONE (14:40)
--- NOTE | 2018-09-08 14:47 | PN ---
Progress Note, Physician History of Present Illness: Pt seen and examined, events noted. She is currently alert, afebrile, denying any foot pain. No specific complaints. - Current Medication List Current Medications: Active Medications Acetaminophen (Tylenol -) 650 mg PO Q6H PRN PRN Reason: PAIN LEVEL 1-5 Last Admin: 09/08/18 10:12 Dose: 650 mg Amlodipine Besylate (Norvasc -) 10 mg PO DAILY [facility] Last Admin: 09/08/18 13:35 Dose: 10 mg Atorvastatin Calcium (Lipitor -) 10 mg PO HS [facility] Last Admin: 09/07/18 21:13 Dose: 10 mg Calcium Acetate (Phoslo -) 667 mg PO TIDCM [facility] Last Admin: 09/08/18 13:33 Dose: 667 mg Clopidogrel Bisulfate (Plavix -) 75 mg PO DAILY [facility] Last Admin: 09/08/18 13:35 Dose: 75 mg Collagenase (Santyl -) 1 applic TP DAILY [facility]; Protocol Last Admin: 09/07/18 22:20 Dose: 1 applic Heparin Sodium (Porcine) (Heparin -) 5,000 unit SQ TID [facility] Last Admin: 09/08/18 14:03 Dose: 5,000 unit Piperacillin Sod/Tazobactam (Sod 2.25 gm/ Dextrose) 50 mls @ 100 mls/hr IVPB Q8H-IV [facility]; Protocol Last Admin: 09/08/18 11:25 Dose: 100 mls/hr Sodium Chloride (Normal Saline -) 250 mls @ 3,000 mls/hr IV PRN PRN PRN Reason: Hypotension during Dialysis Stop: 09/09/18 07:38 Vancomycin HCl 1,000 mg/ (Dextrose) 250 mls @ 166.667 mls/hr IVPB ONCE ONE; Protocol Stop: 09/08/18 16:09 Insulin Aspart (Novolog Vial Sliding Scale -) 1 vial SQ ACHS [facility]; Protocol Last Admin: 09/08/18 13:20 Dose: Not Given Labetalol HCl (Normodyne -) 300 mg PO BID [facility] Last Admin: 09/08/18 13:35 Dose: 300 mg Sevelamer Carbonate (Renvela -) 800 mg PO TIDCM [facility] Last Admin: 09/08/18 13:33 Dose: 800 mg - Objective Vital Signs: Vital Signs Temperature 98.0 F 09/08/18 09:05 Pulse Rate 62 09/08/18 12:45 Respiratory Rate 18 09/08/18 12:45 Blood Pressure 163/79 09/08/18 12:45 O2 Sat by Pulse Oximetry (%) 97 09/07/18 21:00 Constitutional: Yes: No Distress, Calm Cardiovascular: Yes: Regular Rate and Rhythm Respiratory: Yes: Regular Gastrointestinal: Yes: Normal Bowel Sounds, Soft Extremities: Yes: Amputation (Lt 3-5 toes) Wound/Incision: Yes: Other (Lt 2nd toe darkened discoloration, no current drainage) Neurological: Yes: Alert Labs: CBC, BMP 09/08/18 07:50 09/08/18 07:50 INR, PTT INR 1.11 (0.83-1.09) H 09/07/18 06:00 Microbiology 09/07/18 22:03 Foot - Lt Transmetatarsal Amp Site Gram Stain - Final 09/06/18 10:30 Blood - Peripheral Venous Blood Culture - Preliminary NO GROWTH OBTAINED AFTER 48 HOURS, INCUBATION TO CONTINUE FOR 3 DAYS. 09/06/18 11:25 Blood - Peripheral Venous Blood Culture - Preliminary NO GROWTH OBTAINED AFTER 48 HOURS, INCUBATION TO CONTINUE FOR 3 DAYS. - ....Imaging X-ray: Report Reviewed MRI: Report Reviewed Problem List - Problems (1) ESRD (end stage renal disease) on dialysis Code(s): N18.6 - END STAGE RENAL DISEASE; Z99.2 - DEPENDENCE ON RENAL DIALYSIS (2) Gangrene Code(s): I96 - GANGRENE, NOT ELSEWHERE CLASSIFIED (3) Wound infection Code(s): T14.8XXA - OTHER INJURY OF UNSPECIFIED BODY REGION, INITIAL ENCOUNTER; L08.9 - LOCAL INFECTION OF THE SKIN AND SUBCUTANEOUS TISSUE, UNSP (4) AVF (arteriovenous fistula) Code(s): I77.0 - ARTERIOVENOUS FISTULA, ACQUIRED (5) Hypertension Code(s): I10 - ESSENTIAL (PRIMARY) HYPERTENSION Qualifiers: Hypertension type: essential hypertension Qualified Code(s): I10 - Essential (primary) hypertension (6) Diabetes Code(s): E11.9 - TYPE 2 DIABETES MELLITUS WITHOUT COMPLICATIONS Qualifiers: Diabetes mellitus type: type 2 Diabetes mellitus care home insulin use: without care home use Diabetes mellitus complication status: with kidney complications Diabetes mellitus complication detail: with chronic kidney disease Chronic kidney disease stage: on chronic dialysis Qualified Code(s) : E11.22 - Type 2 diabetes mellitus with diabetic chronic kidney disease; N18.6 - End stage renal disease; Z99.2 - Dependence on renal dialysis Assessment/Plan Lt 2nd toe gangrene/infected wound PAD/Hx of Lt tibial artery angioplasty Hx of Lt 3/4/5 toe amputation ESRD on HD NIDDM HTN --Labs/imaging results noted -- continue Zosyn, Vancomycin to be given post HD (dose ordered today), monitor levels -- follow up wound culture results -- Vascular follow up -- Podiatry following continue wound care monitor closely
[2018-09-08] MEDS: COLLAGENASE CLOSTRIDIUM HIST. 30 GRAMS TUBE TP SCH (15:28)
[2018-09-08] MEDS: ATORVASTATIN CA 10 MG TABLET (FP) PO SCH (22:12)
[2018-09-09] MEDS ORDERED: PIPERACILLIN/TAZOBACTAM 2.25 GM VIAL IVPB ONE ×3 (00:36→17:43)
[2018-09-09] MEDS ORDERED: DEXTROSE 5%-WATER - 50 ML IVPB ONE ×3 (00:36→17:43)
[2018-09-09] MEDS: PIPERACILLIN/TAZOB 2.25 GM 2.25 GM in DEXTROSE 5%-WATER - 50 ML IVPB SCH ×3 (01:55→17:49)
[2018-09-09] MEDS: HEPARIN NA (PORCINE) 5,000 UNITS/ML 1ML VIAL SQ SCH ×3 (06:20→22:12)
[2018-09-09] MEDS: INSULIN SLIDING SCALE (NOVOLOG) 1 VIAL SQ SCH ×4 (06:27→22:12)
[2018-09-09] MEDS: CALCIUM ACETATE 667 MG CAPSULE (FP) PO SCH ×3 (08:38→17:49)
[2018-09-09] MEDS: SEVELAMER CARBONATE 800 MG TAB (FP) PO SCH ×3 (08:38→17:49)
[2018-09-09] MEDS ORDERED: PT OWN MED DRAWER 7, Y5N ONE ×2 (09:19→11:06)
[2018-09-09] MEDS: CLOPIDOGREL BISULFATE 75 MG TABLET (FP) PO SCH (09:30)
[2018-09-09] MEDS: amLODIPine BESYLATE 10 MG TABLET (FP) PO SCH (09:30)
[2018-09-09] MEDS: LABETALOL HCL 100 MG TABLET (FP) PO SCH ×2 (09:34→22:12)
[2018-09-09] MEDS ORDERED: INSULIN (NOVOLOG) ASPART 100 UNITS/ML 10ML VIAL ONE (10:49)
[2018-09-09] MEDS: ACETAMINOPHEN 325 MG TABLET (FP) PO PRN (11:12)
[2018-09-09] MEDS: COLLAGENASE CLOSTRIDIUM HIST. 30 GRAMS TUBE TP SCH (11:19)
--- NOTE | 2018-09-09 12:14 | PN ---
Progress Note, Physician Chief Complaint: The patient examined in her room. Sitting by her bed. reports feeling better. dressings noted over the left foot. Denies any new problems. History of Present Illness: This is a 77 year old woman with hx of ESRD, DM, HTN, HLD S/p recent TMA of left foot for gas forming infection presented with worsening wound infection. - Current Medication List Current Medications: Active Medications Acetaminophen (Tylenol -) 650 mg PO Q6H PRN PRN Reason: PAIN LEVEL 1-5 Last Admin: 09/09/18 11:12 Dose: 650 mg Amlodipine Besylate (Norvasc -) 10 mg PO DAILY [facility] Last Admin: 09/09/18 09:30 Dose: 10 mg Atorvastatin Calcium (Lipitor -) 10 mg PO HS [facility] Last Admin: 09/08/18 22:12 Dose: 10 mg Calcium Acetate (Phoslo -) 667 mg PO TIDCM [facility] Last Admin: 09/09/18 08:38 Dose: 667 mg Clopidogrel Bisulfate (Plavix -) 75 mg PO DAILY [facility] Last Admin: 09/09/18 09:30 Dose: 75 mg Collagenase (Santyl -) 1 applic TP DAILY [facility]; Protocol Last Admin: 09/09/18 11:19 Dose: 1 applic Heparin Sodium (Porcine) (Heparin -) 5,000 unit SQ TID [facility] Last Admin: 09/09/18 06:20 Dose: 5,000 unit Piperacillin Sod/Tazobactam (Sod 2.25 gm/ Dextrose) 50 mls @ 100 mls/hr IVPB Q8H-IV [facility]; Protocol Last Admin: 09/09/18 09:06 Dose: 100 mls/hr Insulin Aspart (Novolog Vial Sliding Scale -) 1 vial SQ ACHS [facility]; Protocol Last Admin: 09/09/18 11:14 Dose: Not Given Labetalol HCl (Normodyne -) 300 mg PO BID [facility] Last Admin: 09/09/18 09:34 Dose: 300 mg Sevelamer Carbonate (Renvela -) 800 mg PO TIDCM [facility] Last Admin: 09/09/18 08:38 Dose: 800 mg - Objective Vital Signs: Vital Signs Temperature 98.0 F 09/09/18 09:00 Pulse Rate 72 09/09/18 09:00 Respiratory Rate 18 09/09/18 09:00 Blood Pressure 139/75 09/09/18 09:00 O2 Sat by Pulse Oximetry (%) 97 09/09/18 10:00 Constitutional: Yes: No Distress Eyes: Yes: Conjunctiva Clear HENT: Yes: Normocephalic Neck: Yes: Trachea Midline Cardiovascular: Yes: Regular Rate and Rhythm, S1, S2 Respiratory: Yes: CTA Bilaterally, Diminished Gastrointestinal: Yes: Normal Bowel Sounds, Soft Genitourinary: No: CVA Tenderness - Left, CVA Tenderness - Right Musculoskeletal: Yes: Back Pain Edema: No Wound/Incision: Yes: Dressing Dry and Intact Neurological: Yes: Alert, Oriented Labs: CBC, BMP 09/08/18 07:50 09/08/18 07:50 INR, PTT INR 1.11 (0.83-1.09) H 09/07/18 06:00 Assessment/Plan 77 year old woman with hx of ESRD, DM, HTN, HLD S/p recent TMA of left foot for gas forming infection presented with worsening wound infection. The patient had amputation. Wound care. On IV Zosyn. Dressings in place. PLAN: Will continue the IV Abx as ordered. TTS schedule for HD. Will follow. Ursula Echavarria MD
--- NOTE | 2018-09-09 12:25 | PN ---
Physical Exam: SUBJECTIVE: Patient seen and examined, no complaints, no new left foot pain. No new complaints. OBJECTIVE: Vital Signs Period Temp Pulse Resp BP Sys/Jha Pulse Ox Last 24 Hr 97.9 F-99.9 F 22-74 18-22 132-167/69-98 95-97 GENERAL: The patient is awake, alert, and fully oriented, in no acute distress. HEAD: Normal with no signs of trauma. EYES: PERRL, extraocular movements intact, sclera anicteric, conjunctiva clear. No ptosis. ENT: Ears normal, nares patent, oropharynx clear without exudates, moist mucous membranes. NECK: Trachea midline, full range of motion, supple. LUNGS: Breath sounds equal, clear to auscultation bilaterally, no wheezes, no crackles, no accessory muscle use. HEART: Regular rate and rhythm, S1, S2 ABDOMEN: Soft, nontender, nondistended, normoactive bowel sounds, no guarding, no rebound EXTREMITIES: Left foot with wound base of 2nd digit with fibrinous base and some purulent discharge, dark skin discoloration around, area of discoloration progressive around the wound, unable to palpate left PT pulse, non tender, s/p amputation of left 3rd/4th/5th digits PSYCH: Normal mood, normal affect. SKIN: Warm, dry, normal turgor, no rashes or lesions noted Laboratory Results - last 24 hr 09/08/18 09/08/18 09/08/18 13:19 16:32 22:18 POC Glucometer 122 101 114 09/09/18 09/09/18 06:26 11:12 POC Glucometer 63 100 Active Medications Generic Name Dose Route Start Last Admin Trade Name Freq PRN Reason Stop Dose Admin Acetaminophen 650 mg 09/07/18 12:26 09/09/18 11:12 Tylenol - PO 650 mg Q6H PRN Administration PAIN LEVEL 1-5 Amlodipine Besylate 10 mg 09/06/18 21:00 09/09/18 09:30 Norvasc - PO 10 mg DAILY NOE Administration Atorvastatin Calcium 10 mg 09/06/18 22:00 09/08/18 22:12 Lipitor - PO 10 mg HS NEO Administration Calcium Acetate 667 mg 09/06/18 21:00 09/09/18 08:38 Phoslo - PO 667 mg TIDCM NOE Administration Clopidogrel Bisulfate 75 mg 09/07/18 10:00 09/09/18 09:30 Plavix - PO 75 mg DAILY NOE Administration Collagenase 1 applic 09/07/18 10:00 09/09/18 11:19 Santyl - TP 1 applic DAILY NOE Administration Protocol Docusate Sodium 100 mg 09/09/18 14:00 Colace - PO TID NOE Heparin Sodium (Porcine) 5,000 unit 09/06/18 22:00 09/09/18 06:20 Heparin - SQ 5,000 unit TID NOE Administration Piperacillin Sod/Tazobactam 50 mls @ 100 mls/hr 09/08/18 02:00 09/09/18 09:06 Sod 2.25 gm/ Dextrose IVPB 100 mls/hr Q8H-IV NOE Administration Protocol Insulin Aspart 1 vial 09/06/18 22:00 09/09/18 11:14 Novolog Vial Sliding Scale - SQ Not Given ACHS NOE Protocol Labetalol HCl 300 mg 09/06/18 22:00 09/09/18 09:34 Normodyne - PO 300 mg BID NOE Administration Senna 2 tab 09/09/18 22:00 Senna - PO HS NOE Sevelamer Carbonate 800 mg 09/06/18 21:00 09/09/18 08:38 Renvela - PO 800 mg TIDCM NOE Administration ASSESSMENT/PLAN: 77 yof with PMHx of ESRD on HD, NIDDM, HTN, recent left 3rd/4th/5th toe amputation for gangrenous changes, followed by Dr. Paul at wound care s/p repeat debridement at the surgical wound site x 2, sent in for worsening left foot infection. -Left foot wound infection with gangrenous changes -Recent left 3rd/4th/5th toes amputation -ESRD on HD -Calciphylaxis -PAD -NIDDM -HTN Plan: Vascular surgery/podiatry input noted. Overall wound unchanged Zosyn/vancomycin per ID. s/p left tibial artery angioplasty with Dr. Rodriguez in 07/2018. Awaiting vascular surgery input, ?amputation, will follo wup. HD per renal Continue plavix/statin/labetalol DVTPPX heparin Dispo pending clinical improvement and surgical plan Plan discussed with patient and nursing in detail, all questions answered. Visit type - Emergency Visit Emergency Visit: Yes ED Registration Date: 09/06/18 Care time: The patient presented to the Emergency Department on the above date and was hospitalized for further evaluation of their emergent condition. - New Patient This patient is new to me today: No - Critical Care Critical Care patient: No - Discharge Referral Referred to [facility] Med P.C.: No
--- NOTE | 2018-09-09 13:11 | PN ---
Progress Note (short form) - Note Progress Note: fu left foot. vss, tmax 98.2 +increasing gangrenous changes, +necrotic tissue, +drainage, -mal odor, wound culture pending gangarene Continue abx. Awaiting vascular. Santyl dressing changes. Will follow.
[2018-09-09] MEDS: DOCUSATE SODIUM 100 MG CAPSULE (FP) PO SCH ×2 (14:04→22:12)
--- NOTE | 2018-09-09 15:19 | PN ---
Progress Note, Physician History of Present Illness: Pt remains alert , afebrile. Denies pain. Tolerating antibiotics. - Current Medication List Current Medications: Active Medications Acetaminophen (Tylenol -) 650 mg PO Q6H PRN PRN Reason: PAIN LEVEL 1-5 Last Admin: 09/09/18 11:12 Dose: 650 mg Amlodipine Besylate (Norvasc -) 10 mg PO DAILY [facility] Last Admin: 09/09/18 09:30 Dose: 10 mg Atorvastatin Calcium (Lipitor -) 10 mg PO HS [facility] Last Admin: 09/08/18 22:12 Dose: 10 mg Calcium Acetate (Phoslo -) 667 mg PO TIDCM [facility] Last Admin: 09/09/18 12:30 Dose: 667 mg Clopidogrel Bisulfate (Plavix -) 75 mg PO DAILY [facility] Last Admin: 09/09/18 09:30 Dose: 75 mg Collagenase (Santyl -) 1 applic TP DAILY [facility]; Protocol Last Admin: 09/09/18 11:19 Dose: 1 applic Docusate Sodium (Colace -) 100 mg PO TID [facility] Last Admin: 09/09/18 14:04 Dose: 100 mg Heparin Sodium (Porcine) (Heparin -) 5,000 unit SQ TID [facility] Last Admin: 09/09/18 14:04 Dose: 5,000 unit Piperacillin Sod/Tazobactam (Sod 2.25 gm/ Dextrose) 50 mls @ 100 mls/hr IVPB Q8H-IV [facility]; Protocol Last Admin: 09/09/18 09:06 Dose: 100 mls/hr Insulin Aspart (Novolog Vial Sliding Scale -) 1 vial SQ ACHS [facility]; Protocol Last Admin: 09/09/18 11:14 Dose: Not Given Labetalol HCl (Normodyne -) 300 mg PO BID [facility] Last Admin: 09/09/18 09:34 Dose: 300 mg Senna (Senna -) 2 tab PO HS [facility] Sevelamer Carbonate (Renvela -) 800 mg PO TIDCM [facility] Last Admin: 09/09/18 12:30 Dose: 800 mg - Objective Vital Signs: Vital Signs Temperature 98.0 F 09/09/18 09:00 Pulse Rate 72 09/09/18 09:00 Respiratory Rate 18 09/09/18 09:00 Blood Pressure 139/75 09/09/18 09:00 O2 Sat by Pulse Oximetry (%) 97 09/09/18 10:00 Constitutional: Yes: No Distress, Calm Cardiovascular: Yes: Regular Rate and Rhythm Respiratory: Yes: Regular Gastrointestinal: Yes: Normal Bowel Sounds, Soft Wound/Incision: Yes: Other (Lt 2nd toe darkened discoloration, no purulence noted at this time) Neurological: Yes: Alert Labs: CBC, BMP 09/08/18 07:50 09/08/18 07:50 INR, PTT INR 1.11 (0.83-1.09) H 09/07/18 06:00 Microbiology 09/06/18 10:30 Blood - Peripheral Venous Blood Culture - Preliminary NO GROWTH OBTAINED AFTER 72 HOURS, INCUBATION TO CONTINUE FOR 2 DAYS. 09/06/18 11:25 Blood - Peripheral Venous Blood Culture - Preliminary NO GROWTH OBTAINED AFTER 72 HOURS, INCUBATION TO CONTINUE FOR 2 DAYS. 09/07/18 22:03 Foot - Lt Transmetatarsal Amp Site Gram Stain - Final 09/07/18 22:03 Foot - Lt Transmetatarsal Amp Site Wound Culture - Preliminary NO GROWTH OBTAINED AFTER 24 HOURS INCUBATION, REINCUBATED. Problem List - Problems (1) ESRD (end stage renal disease) on dialysis Code(s): N18.6 - END STAGE RENAL DISEASE; Z99.2 - DEPENDENCE ON RENAL DIALYSIS (2) Gangrene Code(s): I96 - GANGRENE, NOT ELSEWHERE CLASSIFIED (3) Wound infection Code(s): T14.8XXA - OTHER INJURY OF UNSPECIFIED BODY REGION, INITIAL ENCOUNTER; L08.9 - LOCAL INFECTION OF THE SKIN AND SUBCUTANEOUS TISSUE, UNSP (4) AVF (arteriovenous fistula) Code(s): I77.0 - ARTERIOVENOUS FISTULA, ACQUIRED (5) Hypertension Code(s): I10 - ESSENTIAL (PRIMARY) HYPERTENSION Qualifiers: Hypertension type: essential hypertension Qualified Code(s): I10 - Essential (primary) hypertension (6) Diabetes Code(s): E11.9 - TYPE 2 DIABETES MELLITUS WITHOUT COMPLICATIONS Qualifiers: Diabetes mellitus type: type 2 Diabetes mellitus jail insulin use: without roasterman use Diabetes mellitus complication status: with kidney complications Diabetes mellitus complication detail: with chronic kidney disease Chronic kidney disease stage: on chronic dialysis Qualified Code(s) : E11.22 - Type 2 diabetes mellitus with diabetic chronic kidney disease; N18.6 - End stage renal disease; Z99.2 - Dependence on renal dialysis Assessment/Plan Lt 2nd toe gangrene/infected wound PAD/Hx of Lt tibial artery angioplasty Hx of Lt //5 toe amputation ESRD on HD NIDDM HTN -- continue Zosyn -- Vancomycin level prior to next HD -- wound cultures no growth so far -- Vascular to follow up -- Podiatry following continue wound care Pt currently without distress, afebrile
[2018-09-09] MEDS: SENNOSIDES 8.6MG TABLET (FP) PO SCH (22:11)
[2018-09-09] MEDS: ATORVASTATIN CA 10 MG TABLET (FP) PO SCH (22:12)
[2018-09-10] MEDS: PIPERACILLIN/TAZOB 2.25 GM 2.25 GM in DEXTROSE 5%-WATER - 50 ML IVPB SCH ×3 (02:04→17:59)
[2018-09-10] MEDS: DOCUSATE SODIUM 100 MG CAPSULE (FP) PO SCH ×3 (06:11→22:47)
[2018-09-10] MEDS: HEPARIN NA (PORCINE) 5,000 UNITS/ML 1ML VIAL SQ SCH ×3 (06:11→22:47)
[2018-09-10] MEDS: INSULIN SLIDING SCALE (NOVOLOG) 1 VIAL SQ SCH ×4 (06:13→23:06)
[2018-09-10] MEDS ORDERED: PT OWN MED DRAWER 7, Y5N ONE (06:45)
[2018-09-10] MEDS ORDERED: INSULIN (NOVOLOG) ASPART 100 UNITS/ML 10ML VIAL ONE (06:45)
[2018-09-10] MEDS: ACETAMINOPHEN 325 MG TABLET (FP) PO PRN (07:13)
[2018-09-10 07:41] LABS: BASO % 1.4 % (0-2.0); EOS % 4.1 % (0-4.5); HEMOGLOBIN 11.4 GM/dL (10.7-15.3); LYMPH % 25.6 % (8-40); MCH 29.8 pg (25.7-33.7); MCHC 32.4 g/dl (32.0-36.0); MEAN CELL VOLUME 92.1 fl (80-96); MONO % 11.1 % (3.8-10.2); NEUT % 57.8 % (42.8-82.8); PLATELET COUNT 196 K/MM3 (134-434); RDW 17.9 % (11.6-15.6); WHITE BLOOD COUNT 4.3 K/mm3 (4.0-10.0)
[2018-09-10 08:01] LABS: ANION GAP 7 MMOL/L (8-16); BLOOD UREA NITROGEN 28 mg/dL (7-18); CHLORIDE 98 mmol/L (98-107); CO2 32 mmol/L (21-32); CREATININE 3.7 mg/dL (0.55-1.3); GLUCOSE,RANDOM 80 mg/dL (74-106); POTASSIUM 4.9 mmol/L (3.5-5.1); SODIUM 137 mmol/L (136-145)
[2018-09-10] MEDS: CALCIUM ACETATE 667 MG CAPSULE (FP) PO SCH ×3 (08:20→17:58)
[2018-09-10] MEDS: SEVELAMER CARBONATE 800 MG TAB (FP) PO SCH ×3 (08:22→17:58)
[2018-09-10] MEDS ORDERED: DEXTROSE 5%-WATER - 50 ML IVPB ONE ×3 (10:34→17:56)
[2018-09-10] MEDS ORDERED: PIPERACILLIN/TAZOBACTAM 2.25 GM VIAL IVPB ONE ×3 (10:34→17:55)
[2018-09-10] MEDS: LABETALOL HCL 100 MG TABLET (FP) PO SCH ×3 (10:36→22:47)
[2018-09-10] MEDS: CLOPIDOGREL BISULFATE 75 MG TABLET (FP) PO SCH (10:36)
[2018-09-10] MEDS: amLODIPine BESYLATE 10 MG TABLET (FP) PO SCH (10:36)
--- NOTE | 2018-09-10 10:38 | PN ---
Progress Note (short form) - Note Progress Note: Vascular Surgery Pt seen and examined. Dressing changed. 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 Boris Rodriguez DO
--- NOTE | 2018-09-10 10:39 | PN ---
Progress Note, Physician Chief Complaint: Pt sitting in chair in no acute distress. Denies any chest pain, sob, n/v/d - Current Medication List Current Medications: Active Medications Acetaminophen (Tylenol -) 650 mg PO Q6H PRN PRN Reason: PAIN LEVEL 1-5 Last Admin: 09/10/18 07:13 Dose: 650 mg Amlodipine Besylate (Norvasc -) 10 mg PO DAILY [facility] Last Admin: 09/10/18 10:36 Dose: 10 mg Atorvastatin Calcium (Lipitor -) 10 mg PO HS [facility] Last Admin: 09/09/18 22:12 Dose: 10 mg Calcium Acetate (Phoslo -) 667 mg PO TIDCM [facility] Last Admin: 09/10/18 08:20 Dose: 667 mg Clopidogrel Bisulfate (Plavix -) 75 mg PO DAILY [facility] Last Admin: 09/10/18 10:36 Dose: 75 mg Collagenase (Santyl -) 1 applic TP DAILY [facility]; Protocol Last Admin: 09/09/18 11:19 Dose: 1 applic Docusate Sodium (Colace -) 100 mg PO TID [facility] Last Admin: 09/10/18 06:11 Dose: 100 mg Heparin Sodium (Porcine) (Heparin -) 5,000 unit SQ TID [facility] Last Admin: 09/10/18 06:11 Dose: 5,000 unit Piperacillin Sod/Tazobactam (Sod 2.25 gm/ Dextrose) 50 mls @ 100 mls/hr IVPB Q8H-IV [facility]; Protocol Last Admin: 09/10/18 10:36 Dose: 100 mls/hr Insulin Aspart (Novolog Vial Sliding Scale -) 1 vial SQ ACHS [facility]; Protocol Last Admin: 09/10/18 06:13 Dose: Not Given Labetalol HCl (Normodyne -) 300 mg PO BID [facility] Last Admin: 09/10/18 10:36 Dose: 300 mg Senna (Senna -) 2 tab PO HS [facility] Last Admin: 09/09/18 22:11 Dose: 2 tab Sevelamer Carbonate (Renvela -) 800 mg PO TIDCM [facility] Last Admin: 09/10/18 08:22 Dose: 800 mg - Objective Vital Signs: Vital Signs Temperature 98.1 F 09/10/18 09:32 Pulse Rate 76 09/10/18 09:32 Respiratory Rate 18 09/10/18 09:32 Blood Pressure 162/87 09/10/18 09:32 O2 Sat by Pulse Oximetry (%) 96 09/09/18 21:00 Constitutional: Yes: Well Nourished, No Distress, Calm Cardiovascular: Yes: Regular Rate and Rhythm Respiratory: Yes: WNL, Regular, CTA Bilaterally. No: Accessory Muscle Use, SOB , Tachypnea, Wheezes Gastrointestinal: Yes: WNL, Normal Bowel Sounds, Soft. No: Distention Genitourinary: Yes: WNL Integumentary: Yes: Other (left foot s/p metatarsal amputation area- increased discoloration) Wound/Incision: Yes: Open to air Neurological: Yes: WNL, Alert, Oriented Psychiatric: Yes: WNL, Alert Labs: CBC, BMP 09/10/18 07:00 09/10/18 07:00 INR, PTT INR 1.11 (0.83-1.09) H 09/07/18 06:00 Assessment/Plan (1) Wound infection Assessment/Plan: worsening discoloration to left 2nd/1st digit CT LLE- edematous changes of soft tissue of foot, low suspicion for osteomyelitis antibx per ID plan for angiogram tomorrow wound care/debridement per podiatry Code(s): T14.8XXA - OTHER INJURY OF UNSPECIFIED BODY REGION, INITIAL ENCOUNTER; L08.9 - LOCAL INFECTION OF THE SKIN AND SUBCUTANEOUS TISSUE, UNSP (2) ESRD (end stage renal disease) on dialysis Assessment/Plan: nephrology following Code(s): N18.6 - END STAGE RENAL DISEASE; Z99.2 - DEPENDENCE ON RENAL DIALYSIS (3) Calciphylaxis Assessment/Plan: chronic nephrology following Code(s): E83.59 - OTHER DISORDERS OF CALCIUM METABOLISM (4) Hypertension Assessment/Plan: elevated labetalol increased to tid continue amlodipine Code(s): I10 - ESSENTIAL (PRIMARY) HYPERTENSION Qualifiers: Hypertension type: essential hypertension Qualified Code(s): I10 - Essential (primary) hypertension (5) Diabetes Assessment/Plan: BGM Insulin sliding scale diabetic diet Code(s): E11.9 - TYPE 2 DIABETES MELLITUS WITHOUT COMPLICATIONS Qualifiers: Diabetes mellitus type: type 2 Diabetes mellitus residential insulin use: without terminal block assembler use Diabetes mellitus complication status: with kidney complications Diabetes mellitus complication detail: with chronic kidney disease Chronic kidney disease stage: on chronic dialysis Qualified Code(s) : E11.22 - Type 2 diabetes mellitus with diabetic chronic kidney disease; N18.6 - End stage renal disease; Z99.2 - Dependence on renal dialysis (6) Hyperlipidemia Assessment/Plan: stable continue statin Code(s): E78.5 - HYPERLIPIDEMIA, UNSPECIFIED Qualifiers: Hyperlipidemia type: pure hypercholesterolemia Qualified Code(s): E78.00 - Pure hypercholesterolemia, unspecified; E78.0 - Pure hypercholesterolemia (7) GERD (gastroesophageal reflux disease) Assessment/Plan: stable Code(s): K21.9 - GASTRO-ESOPHAGEAL REFLUX DISEASE WITHOUT ESOPHAGITIS Qualifiers: Esophagitis presence: without esophagitis Qualified Code(s): K21.9 - Gastro -esophageal reflux disease without esophagitis
[2018-09-10] MEDS: COLLAGENASE CLOSTRIDIUM HIST. 30 GRAMS TUBE TP SCH (10:55)
--- NOTE | 2018-09-10 13:26 | PN ---
Progress Note, Physician History of Present Illness: stable no issues - Current Medication List Current Medications: Active Medications Acetaminophen (Tylenol -) 650 mg PO Q6H PRN PRN Reason: PAIN LEVEL 1-5 Last Admin: 09/10/18 07:13 Dose: 650 mg Amlodipine Besylate (Norvasc -) 10 mg PO DAILY [facility] Last Admin: 09/10/18 10:36 Dose: 10 mg Atorvastatin Calcium (Lipitor -) 10 mg PO HS [facility] Last Admin: 09/09/18 22:12 Dose: 10 mg Calcium Acetate (Phoslo -) 667 mg PO TIDCM [facility] Last Admin: 09/10/18 12:12 Dose: 667 mg Clopidogrel Bisulfate (Plavix -) 75 mg PO DAILY [facility] Last Admin: 09/10/18 10:36 Dose: 75 mg Collagenase (Santyl -) 1 applic TP DAILY [facility]; Protocol Last Admin: 09/10/18 10:55 Dose: 1 applic Docusate Sodium (Colace -) 100 mg PO TID [facility] Last Admin: 09/10/18 06:11 Dose: 100 mg Heparin Sodium (Porcine) (Heparin -) 5,000 unit SQ TID [facility] Last Admin: 09/10/18 06:11 Dose: 5,000 unit Piperacillin Sod/Tazobactam (Sod 2.25 gm/ Dextrose) 50 mls @ 100 mls/hr IVPB Q8H-IV [facility]; Protocol Last Admin: 09/10/18 10:36 Dose: 100 mls/hr Insulin Aspart (Novolog Vial Sliding Scale -) 1 vial SQ ACHS [facility]; Protocol Last Admin: 09/10/18 11:09 Dose: Not Given Labetalol HCl (Normodyne -) 300 mg PO TID [facility] Senna (Senna -) 2 tab PO HS [facility] Last Admin: 09/09/18 22:11 Dose: 2 tab Sevelamer Carbonate (Renvela -) 800 mg PO TIDCM [facility] Last Admin: 09/10/18 12:13 Dose: 800 mg - Objective Vital Signs: Vital Signs Temperature 98.1 F 09/10/18 09:32 Pulse Rate 76 09/10/18 09:32 Respiratory Rate 18 09/10/18 09:32 Blood Pressure 162/87 09/10/18 09:32 O2 Sat by Pulse Oximetry (%) 98 09/10/18 09:00 Constitutional: Yes: No Distress, Calm Cardiovascular: Yes: S1, S2 Respiratory: Yes: Regular, CTA Bilaterally Gastrointestinal: Yes: Normal Bowel Sounds, Soft Musculoskeletal: Yes: WNL Extremities: Yes: Other Wound/Incision: Yes: Dressing Dry and Intact Neurological: Yes: Alert, Oriented Psychiatric: Yes: Alert, Oriented Labs: CBC, BMP 09/10/18 07:00 09/10/18 07:00 INR, PTT INR 1.11 (0.83-1.09) H 09/07/18 06:00 Assessment/Plan Problem List - Problems (1) Gangrene Code(s): I96 - GANGRENE, NOT ELSEWHERE CLASSIFIED (2) ESRD (end stage renal disease) on dialysis Code(s): N18.6 - END STAGE RENAL DISEASE; Z99.2 - DEPENDENCE ON RENAL DIALYSIS (3) Calciphylaxis Code(s): E83.59 - OTHER DISORDERS OF CALCIUM METABOLISM (4) Hypertension Code(s): I10 - ESSENTIAL (PRIMARY) HYPERTENSION Qualifiers: Hypertension type: essential hypertension Qualified Code(s): I10 - Essential (primary) hypertension (5) Diabetes Code(s): E11.9 - TYPE 2 DIABETES MELLITUS WITHOUT COMPLICATIONS Qualifiers: Diabetes mellitus type: type 2 Diabetes mellitus snf insulin use: without snf use Diabetes mellitus complication status: with kidney complications Diabetes mellitus complication detail: with chronic kidney disease Chronic kidney disease stage: on chronic dialysis Qualified Code(s) : E11.22 - Type 2 diabetes mellitus with diabetic chronic kidney disease; N18.6 - End stage renal disease; Z99.2 - Dependence on renal dialysis (6) Hyperlipidemia Code(s): E78.5 - HYPERLIPIDEMIA, UNSPECIFIED Qualifiers: Hyperlipidemia type: pure hypercholesterolemia Qualified Code(s): E78.00 - Pure hypercholesterolemia, unspecified; E78.0 - Pure hypercholesterolemia (7) GERD (gastroesophageal reflux disease) Code(s): K21.9 - GASTRO-ESOPHAGEAL REFLUX DISEASE WITHOUT ESOPHAGITIS Qualifiers: Esophagitis presence: without esophagitis Qualified Code(s): K21.9 - Gastro -esophageal reflux disease without esophagitis plan continue zosyn wound care vascular to see the patient rest as per the team no vanco/stop vanco if patient is getting dialysis
[2018-09-10] MEDS: ATORVASTATIN CA 10 MG TABLET (FP) PO SCH (22:47)
[2018-09-10] MEDS: SENNOSIDES 8.6MG TABLET (FP) PO SCH (22:47)
[2018-09-11] MEDS ORDERED: PIPERACILLIN/TAZOBACTAM 2.25 GM VIAL IVPB ONE ×3 (00:31→18:06)
[2018-09-11] MEDS ORDERED: DEXTROSE 5%-WATER - 50 ML IVPB ONE ×3 (00:31→18:06)
[2018-09-11] MEDS: PIPERACILLIN/TAZOB 2.25 GM 2.25 GM in DEXTROSE 5%-WATER - 50 ML IVPB SCH ×3 (02:44→18:31)
[2018-09-11] MEDS: DOCUSATE SODIUM 100 MG CAPSULE (FP) PO SCH ×3 (06:14→23:01)
[2018-09-11] MEDS: LABETALOL HCL 100 MG TABLET (FP) PO SCH ×3 (06:14→23:01)
[2018-09-11] MEDS: HEPARIN NA (PORCINE) 5,000 UNITS/ML 1ML VIAL SQ SCH ×3 (06:14→23:00)
[2018-09-11] MEDS: INSULIN SLIDING SCALE (NOVOLOG) 1 VIAL SQ SCH ×4 (06:21→23:06)
[2018-09-11] MEDS ORDERED: DEXTROSE 50%-WATER - 25 GM/50 ML VIAL IVPUSH ONE (06:31)
[2018-09-11] MEDS ORDERED: DEXTROSE 50%-WATER 25 GM/50 ML DISP.SYRIN ONE ×2 (06:40→16:41)
[2018-09-11] MEDS ORDERED: SODIUM CHLORIDE 250 ML IV PRN ×2 (06:50→21:49)
[2018-09-11 08:21] LABS: BASO % 1.1 % (0-2.0); HEMATOCRIT 35.1 % (32.4-45.2); MCH 31.3 pg (25.7-33.7); MCHC 34.1 g/dl (32.0-36.0); MEAN CELL VOLUME 91.8 fl (80-96); MEAN PLT VOLUME 8.2 fl (7.5-11.1); MONO % 9.8 % (3.8-10.2); NEUT % 61.1 % (42.8-82.8); PLATELET COUNT 166 K/MM3 (134-434); RBC 3.83 M/mm3 (3.60-5.2); RDW 17.3 % (11.6-15.6); WHITE BLOOD COUNT 4.1 K/mm3 (4.0-10.0)
[2018-09-11] MEDS: CALCIUM ACETATE 667 MG CAPSULE (FP) PO SCH ×3 (08:25→16:32)
[2018-09-11] MEDS: SEVELAMER CARBONATE 800 MG TAB (FP) PO SCH ×3 (08:25→16:32)
[2018-09-11 10:34] LABS: ANION GAP 9 MMOL/L (8-16); BLOOD UREA NITROGEN 35 mg/dL (7-18); CHLORIDE 94 mmol/L (98-107); CO2 29 mmol/L (21-32); CREATININE 4.6 mg/dL (0.55-1.3); GLUCOSE,RANDOM 132 mg/dL (74-106); POTASSIUM 5.7 mmol/L (3.5-5.1); SODIUM 132 mmol/L (136-145)
[2018-09-11 10:35] LABS: CALCIUM 9.6 mg/dL (8.5-10.1)
--- NOTE | 2018-09-11 11:46 | PN ---
Progress Note (short form) - Note Progress Note: fu left foot. Pt seen in dialysis. vss, tmax 98.2 +increasing gangrenous changes, +necrotic tissue, +drainage, -mal odor, wound culture pending gangarene Continue abx. Angiogram to be done today. Santyl dressing changes. Will follow.
--- NOTE | 2018-09-11 13:03 | PN ---
Progress Note, Physician - Current Medication List Current Medications: Active Medications Acetaminophen (Tylenol -) 650 mg PO Q6H PRN PRN Reason: PAIN LEVEL 1-5 Last Admin: 09/10/18 07:13 Dose: 650 mg Amlodipine Besylate (Norvasc -) 10 mg PO DAILY [facility] Last Admin: 09/10/18 10:36 Dose: 10 mg Atorvastatin Calcium (Lipitor -) 10 mg PO HS [facility] Last Admin: 09/10/18 22:47 Dose: 10 mg Calcium Acetate (Phoslo -) 667 mg PO TIDCM [facility] Last Admin: 09/11/18 11:30 Dose: Not Given Clopidogrel Bisulfate (Plavix -) 75 mg PO DAILY [facility] Last Admin: 09/10/18 10:36 Dose: 75 mg Collagenase (Santyl -) 1 applic TP DAILY [facility]; Protocol Last Admin: 09/10/18 10:55 Dose: 1 applic Docusate Sodium (Colace -) 100 mg PO TID [facility] Last Admin: 09/11/18 06:14 Dose: 100 mg Heparin Sodium (Porcine) (Heparin -) 5,000 unit SQ TID [facility] Last Admin: 09/11/18 06:14 Dose: 5,000 unit Piperacillin Sod/Tazobactam (Sod 2.25 gm/ Dextrose) 50 mls @ 100 mls/hr IVPB Q8H-IV [facility]; Protocol Last Admin: 09/11/18 02:44 Dose: 100 mls/hr Sodium Chloride (Normal Saline -) 250 mls @ 3,000 mls/hr IV PRN PRN PRN Reason: Hypotension during Dialysis Stop: 09/12/18 06:50 Insulin Aspart ([facility]ial Sliding [facility] -[facility] Last Admin: 09/11/18 11:30 Dose: Not Given Labetalol HCl (Normodyne -) 300 mg PO TID [facility] Last Admin: 09/11/18 06:14 Dose: 300 mg Senna (Senna -) 2 tab PO [facility] Last Admin: 09/10/18 22:47 Dose: 2 tab Sevelamer Carbonate (Renvela -) 800 mg PO TIDCM [facility] Last Admin: 09/11/18 08:25 Dose: Not Given - Objective Vital Signs: Vital Signs Temperature 97.7 F 09/11/18 09:25 Pulse Rate 63 09/11/18 12:32 Respiratory Rate 18 09/11/18 12:32 Blood Pressure 130/87 09/11/18 12:32 O2 Sat by Pulse Oximetry (%) 97 09/11/18 09:00 Labs: CBC, BMP 09/11/18 07:00 09/11/18 07:00 INR, PTT INR 1.11 (0.83-1.09) H 09/07/18 06:00
[2018-09-11] MEDS: amLODIPine BESYLATE 10 MG TABLET (FP) PO SCH (13:38)
[2018-09-11] MEDS: CLOPIDOGREL BISULFATE 75 MG TABLET (FP) PO SCH (13:38)
--- NOTE | 2018-09-11 13:38 | PN ---
Progress Note (short form) - Note Progress Note: Renal follow up for ESRD on HD Pt seen and examined during dialysis awake and alert AVF working well BP stable pt w/o complaints goal UF ~3L Vital Signs Temperature 97.7 F 09/11/18 09:25 Pulse Rate 66 09/11/18 13:26 Respiratory Rate 18 09/11/18 13:26 Blood Pressure 145/73 09/11/18 13:26 O2 Sat by Pulse Oximetry (%) 97 09/11/18 09:00 NAD awake and alert no LE edema CBC, BMP 09/11/18 07:00 09/11/18 07:00 Current Medications Acetaminophen (Tylenol -) 650 mg PO Q6H PRN PRN Reason: PAIN LEVEL 1-5 Last Admin: 09/10/18 07:13 Dose: 650 mg Amlodipine Besylate (Norvasc -) 10 mg PO DAILY [facility] Last Admin: 09/10/18 10:36 Dose: 10 mg Atorvastatin Calcium (Lipitor -) 10 mg PO HS [facility] Last Admin: 09/10/18 22:47 Dose: 10 mg Calcium Acetate (Phoslo -) 667 mg PO TIDCM [facility] Last Admin: 09/11/18 11:30 Dose: Not Given Clopidogrel Bisulfate (Plavix -) 75 mg PO DAILY [facility] Last Admin: 09/10/18 10:36 Dose: 75 mg Collagenase (Santyl -) 1 applic TP DAILY [facility]; Protocol Last Admin: 09/10/18 10:55 Dose: 1 applic Docusate Sodium (Colace -) 100 mg PO TID [facility] Last Admin: 09/11/18 06:14 Dose: 100 mg Heparin Sodium (Porcine) (Heparin -) 5,000 unit SQ TID [facility] Last Admin: 09/11/18 06:14 Dose: 5,000 unit Piperacillin Sod/Tazobactam (Sod 2.25 gm/ Dextrose) 50 mls @ 100 mls/hr IVPB Q8H-IV [facility]; Protocol Last Admin: 09/11/18 13:31 Dose: 100 mls/hr Sodium Chloride (Normal Saline -) 250 mls @ 3,000 mls/hr IV PRN PRN PRN Reason: Hypotension during Dialysis Stop: 09/12/18 06:50 Insulin Aspart (Novolog Vial Sliding Scale -) 1 vial SQ ACHS [facility]; Protocol Last Admin: 09/11/18 11:30 Dose: Not Given Labetalol HCl (Normodyne -) 300 mg PO TID [facility] Last Admin: 09/11/18 06:14 Dose: 300 mg Senna (Senna -) 2 tab PO HS [facility] Last Admin: 09/10/18 22:47 Dose: 2 tab Sevelamer Carbonate (Renvela -) 800 mg PO TIDCM [facility] Last Admin: 09/11/18 08:25 Dose: Not Given 77 year old woman with hx of ESRD, DM, HTN, HLD s/p recent TMA of left foot for gas forming infection presented with worsening wound infection. #ESRD on HD #LE Wound infection with suspected PVD #HTN #DM #Renal Osteodystrophy Tolerating dialysis well for LE angiogram today per vascular will reaccess tomorrow for any signs of volume overload that would warrant additional HD/UF tomorrow on Zosyn as per ID, off ezequiel Smith DO
[2018-09-11] MEDS: COLLAGENASE CLOSTRIDIUM HIST. 30 GRAMS TUBE TP SCH (14:44)
--- NOTE | 2018-09-11 15:12 | PN ---
Progress Note, Physician Chief Complaint: Pt sitting in chair in no acute distress. Denies any chest pain, sob, n/v/d. family at bedside - Current Medication List Current Medications: Active Medications Acetaminophen (Tylenol -) 650 mg PO Q6H PRN PRN Reason: PAIN LEVEL 1-5 Last Admin: 09/10/18 07:13 Dose: 650 mg Amlodipine Besylate (Norvasc -) 10 mg PO DAILY [facility] Last Admin: 09/11/18 13:38 Dose: 10 mg Atorvastatin Calcium (Lipitor -) 10 mg PO HS [facility] Last Admin: 09/10/18 22:47 Dose: 10 mg Calcium Acetate (Phoslo -) 667 mg PO TIDCM [facility] Last Admin: 09/11/18 11:30 Dose: Not Given Clopidogrel Bisulfate (Plavix -) 75 mg PO DAILY [facility] Last Admin: 09/11/18 13:38 Dose: Not Given Collagenase (Santyl -) 1 applic TP DAILY [facility]; Protocol Last Admin: 09/11/18 14:44 Dose: 1 applic Docusate Sodium (Colace -) 100 mg PO TID [facility] Last Admin: 09/11/18 13:39 Dose: Not Given Heparin Sodium (Porcine) (Heparin -) 5,000 unit SQ TID [facility] Last Admin: 09/11/18 13:39 Dose: Not Given Piperacillin Sod/Tazobactam (Sod 2.25 gm/ Dextrose) 50 mls @ 100 mls/hr IVPB Q8H-IV [facility]; Protocol Last Admin: 09/11/18 13:31 Dose: 100 mls/hr Sodium Chloride (Normal Saline -) 250 mls @ 3,000 mls/hr IV PRN PRN PRN Reason: Hypotension during Dialysis Stop: 09/12/18 06:50 Insulin Aspart (Novolog Vial Sliding Scale -) 1 vial SQ ACHS [facility]; Protocol Last Admin: 09/11/18 11:30 Dose: Not Given Labetalol HCl (Normodyne -) 300 mg PO TID [facility] Last Admin: 09/11/18 13:40 Dose: 300 mg Senna (Senna -) 2 tab PO HS [facility] Last Admin: 09/10/18 22:47 Dose: 2 tab Sevelamer Carbonate (Renvela -) 800 mg PO TIDCM [facility] Last Admin: 09/11/18 12:00 Dose: Not Given - Objective Vital Signs: Vital Signs Temperature 97.9 F 09/11/18 13:43 Pulse Rate 73 09/11/18 13:43 Respiratory Rate 18 09/11/18 13:43 Blood Pressure 160/80 09/11/18 13:43 O2 Sat by Pulse Oximetry (%) 97 09/11/18 09:00 Constitutional: Yes: Well Nourished, No Distress, Calm Cardiovascular: Yes: Regular Rate and Rhythm, Murmur Respiratory: Yes: WNL, Regular, CTA Bilaterally. No: Accessory Muscle Use, SOB , Tachypnea, Wheezes Gastrointestinal: Yes: WNL, Normal Bowel Sounds, Soft. No: Distention, Tenderness Genitourinary: Yes: WNL Edema: No Integumentary: Yes: Other (left foot s/p metatarsal amputation area- increased discoloration) Wound/Incision: Yes: Dressing Dry and Intact Neurological: Yes: Alert, Oriented Psychiatric: Yes: WNL, Alert, Oriented Labs: CBC, BMP 09/11/18 07:00 09/11/18 07:00 INR, PTT INR 1.11 (0.83-1.09) H 09/07/18 06:00 Assessment/Plan (1) Wound infection Assessment/Plan: worsening discoloration to left 2nd/1st digit CT LLE- edematous changes of soft tissue of foot, low suspicion for osteomyelitis antibx per ID angiogram today wound care/debridement per podiatry/vascular Code(s): T14.8XXA - OTHER INJURY OF UNSPECIFIED BODY REGION, INITIAL ENCOUNTER; L08.9 - LOCAL INFECTION OF THE SKIN AND SUBCUTANEOUS TISSUE, UNSP (2) ESRD (end stage renal disease) on dialysis Assessment/Plan: nephrology following Code(s): N18.6 - END STAGE RENAL DISEASE; Z99.2 - DEPENDENCE ON RENAL DIALYSIS (3) Calciphylaxis Assessment/Plan: chronic nephrology following Code(s): E83.59 - OTHER DISORDERS OF CALCIUM METABOLISM (4) Hypertension Assessment/Plan: controlled continue amlodipine, labetalol Code(s): I10 - ESSENTIAL (PRIMARY) HYPERTENSION Qualifiers: Hypertension type: essential hypertension Qualified Code(s): I10 - Essential (primary) hypertension (5) Diabetes Assessment/Plan: BGM Insulin sliding scale diabetic diet Code(s): E11.9 - TYPE 2 DIABETES MELLITUS WITHOUT COMPLICATIONS Qualifiers: Diabetes mellitus type: type 2 Diabetes mellitus retirement insulin use: without retirement use Diabetes mellitus complication status: with kidney complications Diabetes mellitus complication detail: with chronic kidney disease Chronic kidney disease stage: on chronic dialysis Qualified Code(s) : E11.22 - Type 2 diabetes mellitus with diabetic chronic kidney disease; N18.6 - End stage renal disease; Z99.2 - Dependence on renal dialysis (6) Hyperlipidemia Assessment/Plan: stable continue statin Code(s): E78.5 - HYPERLIPIDEMIA, UNSPECIFIED Qualifiers: Hyperlipidemia type: pure hypercholesterolemia Qualified Code(s): E78.00 - Pure hypercholesterolemia, unspecified; E78.0 - Pure hypercholesterolemia (7) GERD (gastroesophageal reflux disease) Assessment/Plan: stable Code(s): K21.9 - GASTRO-ESOPHAGEAL REFLUX DISEASE WITHOUT ESOPHAGITIS Qualifiers: Esophagitis presence: without esophagitis Qualified Code(s): K21.9 - Gastro -esophageal reflux disease without esophagitis
[2018-09-11] MEDS ORDERED: DEXTROSE 50%-WATER 25 GM/50 ML DISP.SYRIN IVPUSH ONE (16:45)
[2018-09-11] MEDS ORDERED: PT OWN MED DRAWER 7, Y5N ONE (18:12)
[2018-09-11] MEDS ORDERED: ceFAZolin SODIUM 1 GM VIAL ONE (19:50)
[2018-09-11] MEDS ORDERED: KETOROLAC TROMETHAMINE 30 MG/1 ML VIAL ONE (19:50)
[2018-09-11] MEDS ORDERED: MIDAZOLAM HCL 2 MG/2 ML SINGLE DOSE VIAL ONE (19:51)
[2018-09-11] MEDS ORDERED: LIDOCAINE HCL 1%, 10 MG/ML (50 mL VIAL) INF ONE (20:24)
[2018-09-11] MEDS ORDERED: ceFAZolin SODIUM 1 GM VIAL IVPB ONE (20:25)
[2018-09-11] MEDS ORDERED: HEPARIN NA (PORCINE) 5,000 UNITS/ML 1ML VIAL SQ ONE (21:00)
[2018-09-11] MEDS ORDERED: PROMETHAZINE HCL 25 MG/1 ML VIAL IVPUSH PRN ×2 (21:24→21:49)
[2018-09-11] MEDS ORDERED: ONDANSETRON 4 MG/2 ML VIAL IVPUSH PRN ×2 (21:24→21:49)
[2018-09-11] MEDS ORDERED: oxyCODONE HCL 5 MG TABLET PO PRN ×2 (21:24→21:49)
--- NOTE | 2018-09-11 21:29 | PN ---
Progress Note (short form) - Note Progress Note: Vascular Surgery S/P left lower extremity tibial artery angioplasty. There is good anterior tibial artery runoff into fore foot. Can do debridement of foot. If cannot save foot, then next option will be BKA. Cleared for podiatry intervention. Boris kang DO
--- NOTE | 2018-09-11 21:30 | OP ---
Operative Note - Note: Operative Date: 09/11/18 Pre-Operative Diagnosis: Left foot gangrene Operation: Aortogram, Left lower extremity angiogram, anterior tibial artery angioplasty Findings: ant tibial artery stenosis Post-Operative Diagnosis: Same as Pre-op Surgeon: Boris Rodriguez Anesthesia: Fractional Estimated Blood Loss (mls): 50 Operative Report Dictated: Yes
[2018-09-11] MEDS ORDERED: ACETAMINOPHEN 325 MG TABLET (FP) PO PRN (21:49)
[2018-09-11] MEDS: SENNOSIDES 8.6MG TABLET (FP) PO SCH (23:00)
[2018-09-11] MEDS: ATORVASTATIN CA 10 MG TABLET (FP) PO SCH (23:01)
[2018-09-12] MEDS ORDERED: PIPERACILLIN/TAZOBACTAM 2.25 GM VIAL IVPB ONE ×3 (02:05→17:30)
[2018-09-12] MEDS ORDERED: DEXTROSE 5%-WATER - 50 ML IVPB ONE ×3 (02:06→17:31)
[2018-09-12] MEDS: PIPERACILLIN/TAZOB 2.25 GM 2.25 GM in DEXTROSE 5%-WATER - 50 ML IVPB SCH ×3 (02:56→17:37)
[2018-09-12] MEDS: LABETALOL HCL 100 MG TABLET (FP) PO SCH ×3 (06:35→22:10)
[2018-09-12] MEDS: DOCUSATE SODIUM 100 MG CAPSULE (FP) PO SCH ×3 (06:35→22:11)
[2018-09-12] MEDS: HEPARIN NA (PORCINE) 5,000 UNITS/ML 1ML VIAL SQ SCH ×3 (06:36→22:10)
[2018-09-12] MEDS: INSULIN SLIDING SCALE (NOVOLOG) 1 VIAL SQ SCH ×4 (06:57→22:11)
[2018-09-12] MEDS ORDERED: PT OWN MED DRAWER 7, Y5N ONE (08:49)
[2018-09-12] MEDS: CALCIUM ACETATE 667 MG CAPSULE (FP) PO SCH ×3 (09:17→17:38)
[2018-09-12] MEDS: amLODIPine BESYLATE 10 MG TABLET (FP) PO SCH (09:17)
[2018-09-12] MEDS: SEVELAMER CARBONATE 800 MG TAB (FP) PO SCH ×3 (09:17→17:38)
[2018-09-12] MEDS ORDERED: CLOPIDOGREL BISULFATE 75 MG TABLET (FP) PO SCH (10:00)
--- NOTE | 2018-09-12 11:00 | PN ---
Progress Note, Physician Chief Complaint: Pt lying in bed in no acute distress. Denies any chest pain, sob, n/v/d - Current Medication List Current Medications: Active Medications Acetaminophen (Tylenol -) 650 mg PO Q6H PRN PRN Reason: PAIN LEVEL 1-5 Amlodipine Besylate (Norvasc -) 10 mg PO DAILY [facility] Last Admin: 09/12/18 09:17 Dose: 10 mg Atorvastatin Calcium (Lipitor -) 10 mg PO HS [facility] Last Admin: 09/11/18 23:01 Dose: 10 mg Calcium Acetate (Phoslo -) 667 mg PO TIDCM [facility] Last Admin: 09/12/18 09:17 Dose: 667 mg Clopidogrel Bisulfate (Plavix -) 75 mg PO DAILY [facility] Last Admin: 09/12/18 09:17 Dose: 75 mg Collagenase (Santyl -) 1 applic TP DAILY [facility]; Protocol Docusate Sodium (Colace -) 100 mg PO TID [facility] Last Admin: 09/12/18 06:35 Dose: 100 mg Fentanyl (Sublimaze Injection -) 25 mcg IVPUSH [id number] PRN PRN Reason: PAIN-PACU ORDER X 4 DOSES ONLY Heparin Sodium (Porcine) (Heparin -) 5,000 unit SQ TID [facility] Last Admin: 09/12/18 06:36 Dose: 5,000 unit Sodium Chloride (Normal Saline -) 250 mls @ 3,000 mls/hr IV PRN PRN PRN Reason: Hypotension during Dialysis Stop: 09/12/18 06:50 Piperacillin Sod/Tazobactam (Sod 2.25 gm/ Dextrose) 50 mls @ 100 mls/hr IVPB Q8H-IV [facility]; Protocol Last Admin: 09/12/18 09:18 Dose: 100 mls/hr Insulin Aspart (Novolog Vial Sliding Scale -) 1 vial SQ ACHS [facility]; Protocol Last Admin: 09/12/18 06:57 Dose: Not Given Labetalol HCl (Normodyne -) 300 mg PO TID [facility] Last Admin: 09/12/18 06:35 Dose: 300 mg Ondansetron HCl (Zofran Injection) 4 mg IVPUSH Q6H PRN PRN Reason: NAUSEA AND/OR VOMITING Oxycodone HCl (Roxicodone -) 5 mg PO Q4H PRN PRN Reason: PAIN LEVEL 1-5 Stop: 09/12/18 21:23 Promethazine HCl (Phenergan Injection -) 12.5 mg IVPUSH Q6H PRN PRN Reason: NAUSEA-FOR RESCUE AFTER 15 MIN Senna (Senna -) 2 tab PO HS [facility] Last Admin: 09/11/18 23:00 Dose: 2 tab Sevelamer Carbonate (Renvela -) 800 mg PO TIDCM [facility] Last Admin: 09/12/18 09:17 Dose: 800 mg - Objective Vital Signs: Vital Signs Temperature 98.4 F 09/12/18 09:00 Pulse Rate 72 09/12/18 09:00 Respiratory Rate 18 09/12/18 09:00 Blood Pressure 143/74 09/12/18 09:00 O2 Sat by Pulse Oximetry (%) 97 09/11/18 22:25 Constitutional: Yes: Well Nourished, No Distress, Calm Cardiovascular: Yes: Regular Rate and Rhythm, Murmur Respiratory: Yes: WNL, Regular, CTA Bilaterally. No: Accessory Muscle Use, Rhonchi, SOB, Tachypnea, Wheezes Gastrointestinal: Yes: WNL, Normal Bowel Sounds, Soft. No: Distention, Tenderness Genitourinary: Yes: WNL Edema: No Integumentary: Yes: Other (left foot s/p metatarsal amputation area) Wound/Incision: Yes: Dressing Dry and Intact Neurological: Yes: WNL, Alert, Oriented Psychiatric: Yes: WNL, Alert, Oriented Labs: CBC, BMP 09/11/18 07:00 09/11/18 07:00 INR, PTT INR 1.11 (0.83-1.09) H 09/07/18 06:00 Assessment/Plan (1) Wound infection Assessment/Plan: worsening discoloration to left 2nd/1st digit s/p anterior tibial angioplasty antibx per ID wound care/debridement per podiatry Code(s): T14.8XXA - OTHER INJURY OF UNSPECIFIED BODY REGION, INITIAL ENCOUNTER; L08.9 - LOCAL INFECTION OF THE SKIN AND SUBCUTANEOUS TISSUE, UNSP (2) ESRD (end stage renal disease) on dialysis Assessment/Plan: nephrology following Code(s): N18.6 - END STAGE RENAL DISEASE; Z99.2 - DEPENDENCE ON RENAL DIALYSIS (3) Calciphylaxis Assessment/Plan: chronic nephrology following Code(s): E83.59 - OTHER DISORDERS OF CALCIUM METABOLISM (4) Hypertension Assessment/Plan: controlled continue amlodipine, labetalol Code(s): I10 - ESSENTIAL (PRIMARY) HYPERTENSION Qualifiers: Hypertension type: essential hypertension Qualified Code(s): I10 - Essential (primary) hypertension (5) Diabetes Assessment/Plan: BGM Insulin sliding scale diabetic diet Code(s): E11.9 - TYPE 2 DIABETES MELLITUS WITHOUT COMPLICATIONS Qualifiers: Diabetes mellitus type: type 2 Diabetes mellitus buttermaker helper insulin use: without custodial use Diabetes mellitus complication status: with kidney complications Diabetes mellitus complication detail: with chronic kidney disease Chronic kidney disease stage: on chronic dialysis Qualified Code(s) : E11.22 - Type 2 diabetes mellitus with diabetic chronic kidney disease; N18.6 - End stage renal disease; Z99.2 - Dependence on renal dialysis (6) Hyperlipidemia Assessment/Plan: stable continue statin Code(s): E78.5 - HYPERLIPIDEMIA, UNSPECIFIED Qualifiers: Hyperlipidemia type: pure hypercholesterolemia Qualified Code(s): E78.00 - Pure hypercholesterolemia, unspecified; E78.0 - Pure hypercholesterolemia (7) GERD (gastroesophageal reflux disease) Assessment/Plan: stable Code(s): K21.9 - GASTRO-ESOPHAGEAL REFLUX DISEASE WITHOUT ESOPHAGITIS Qualifiers: Esophagitis presence: without esophagitis Qualified Code(s): K21.9 - Gastro -esophageal reflux disease without esophagitis
--- NOTE | 2018-09-12 11:25 | OP ---
DATE OF OPERATION: 09/11/2018 PREOPERATIVE DIAGNOSIS: Left foot gangrene. POSTOPERATIVE DIAGNOSIS: Left foot gangrene. PROCEDURE: Aortogram, right lower extremity angiogram, anterior tibial artery angioplasty SURGEON: Boris Blake MD ANESTHESIA: Fractional. BLOOD LOSS: 50 mL. INDICATIONS: The patient is a 77-year-old female who has left foot gangrene. She had an amputation of her 3rd, 4th, and 5th rays, and the wound was left open, and now the wound is gangrenous. She had an angioplasty done one month ago, and we were able to open her anterior tibial artery, but now, the wound is getting worse, and we decided that she would need another angiogram. Patient was consented for the procedure understanding all risks, benefits, and alternatives and taken to the operating room. PROCEDURE IN DETAIL: Once in the operating suite, she was placed on the operating table in the supine manner, and the area of the right and left groin was prepped and draped in the sterile surgical manner. We then went ahead and injected 10 mL of lidocaine 1% over the right common femoral artery. We then used a sterile micropuncture needle, punctured the right common femoral artery, and a micropuncture wire was inserted. Micropuncture sheath was inserted. A 5-Cuban sheath was inserted. A 0.035 floppy guidewire was inserted into the aorta followed by an Omni Flush catheter. We then shot an aortogram via hand injection showing that the aorta and iliac arteries were without any disease, but very tortuous.. We then placed a 0.035 floppy guidewire down into the left common iliac artery and then into the left common femoral artery, and our Omni Flush catheter followed. We then shot an angiogram of the left lower extremity via hand injection showing that the common femoral artery, the profunda, and the SFA were patent. The popliteal artery was patent, but there was disease along the entire anterior tibial artery going into the foot. The anterior tibial artery is the only runoff that the patient has. At this point, we placed a 0.035 stiff guidewire into the SFA, removed our Omni Flush catheter. We then placed a 6 x 55 crossover sheath up and over; 5000 units of IV heparin were administered. We then used a Quick-Cross catheter and we brought our wire down and selectively cannulated into the anterior tibial artery, and we changed the wire for a airplane pilot photogrammetry wire. We then used a 2.5 x 150 Ultraverse Balloon and performed angioplasty of the anterior tibial artery from the calf up and all the way up to the origin. Completion angiogram now showed that the anterior tibial artery was patent, there was no recoils, the lesions were patent, and there was good brisk flow going into the loot and into the forefoot. At this point, we decided that no more intervention was needed and brought our sheath up and over, and StarClose device was successfully deployed in the right common femoral artery. Pressure was held for 5 minutes. After there was no bleeding, the area was wet and dried, and Dermabond was placed. The patient tolerated the procedure with no complications. Patient transferred to PACU in stable condition where there was good signal in the forefoot. BORIS BLAKE DO [id number]
[2018-09-12] MEDS ORDERED: SODIUM CHLORIDE 250 ML IV PRN (11:55)
--- NOTE | 2018-09-12 11:55 | PN ---
Progress Note (short form) - Note Progress Note: Renal follow up for ESRD on HD Pt seen and examined at the bedside no acute complaints s/p angiogram and angioplasty yesterday no sob, cp, abd pain Vital Signs Temperature 98.4 F 09/12/18 09:00 Pulse Rate 72 09/12/18 09:00 Respiratory Rate 18 09/12/18 09:00 Blood Pressure 143/74 09/12/18 09:00 O2 Sat by Pulse Oximetry (%) 97 09/11/18 22:25 NAD awake and alert no LE edema CBC, BMP 09/11/18 07:00 09/11/18 07:00 Current Medications Acetaminophen (Tylenol -) 650 mg PO Q6H PRN PRN Reason: PAIN LEVEL 1-5 Amlodipine Besylate (Norvasc -) 10 mg PO DAILY [facility] Last Admin: 09/12/18 09:17 Dose: 10 mg Atorvastatin Calcium (Lipitor -) 10 mg PO HS [facility] Last Admin: 09/11/18 23:01 Dose: 10 mg Calcium Acetate (Phoslo -) 667 mg PO TIDCM [facility] Last Admin: 09/12/18 09:17 Dose: 667 mg Clopidogrel Bisulfate (Plavix -) 75 mg PO DAILY [facility] Last Admin: 09/12/18 09:17 Dose: 75 mg Collagenase (Santyl -) 1 applic TP DAILY [facility]; Protocol Docusate Sodium (Colace -) 100 mg PO TID [facility] Last Admin: 09/12/18 06:35 Dose: 100 mg Fentanyl (Sublimaze Injection -) 25 mcg IVPUSH [id number] PRN PRN Reason: PAIN-PACU ORDER X 4 DOSES ONLY Heparin Sodium (Porcine) (Heparin -) 5,000 unit SQ TID [facility] Last Admin: 09/12/18 06:36 Dose: 5,000 unit Sodium Chloride (Normal Saline -) 250 mls @ 3,000 mls/hr IV PRN PRN PRN Reason: Hypotension during Dialysis Stop: 09/12/18 06:50 Piperacillin Sod/Tazobactam (Sod 2.25 gm/ Dextrose) 50 mls @ 100 mls/hr IVPB Q8H-IV [facility]; Protocol Last Admin: 09/12/18 09:18 Dose: 100 mls/hr Insulin Aspart (Novolog Vial Sliding Scale -) 1 vial SQ ACHS [facility]; Protocol Last Admin: 09/12/18 06:57 Dose: Not Given Labetalol HCl (Normodyne -) 300 mg PO TID [facility] Last Admin: 09/12/18 06:35 Dose: 300 mg Ondansetron HCl (Zofran Injection) 4 mg IVPUSH Q6H PRN PRN Reason: NAUSEA AND/OR VOMITING Oxycodone HCl (Roxicodone -) 5 mg PO Q4H PRN PRN Reason: PAIN LEVEL 1-5 Stop: 09/12/18 21:23 Promethazine HCl (Phenergan Injection -) 12.5 mg IVPUSH Q6H PRN PRN Reason: NAUSEA-FOR RESCUE AFTER 15 MIN Senna (Senna -) 2 tab PO HS [facility] Last Admin: 09/11/18 23:00 Dose: 2 tab Sevelamer Carbonate (Renvela -) 800 mg PO TIDCM [facility] Last Admin: 09/12/18 09:17 Dose: 800 mg 77 year old woman with hx of ESRD, DM, HTN, HLD s/p recent TMA of left foot for gas forming infection presented with worsening wound infection. 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
[2018-09-12 12:45] LABS: BASO % 0.6 % (0-2.0); EOS % 0.1 % (0-4.5); HEMATOCRIT 34.8 % (32.4-45.2); HEMOGLOBIN 11.6 GM/dL (10.7-15.3); LYMPH % 25.7 % (8-40); MCH 30.9 pg (25.7-33.7); MCHC 33.3 g/dl (32.0-36.0); MEAN CELL VOLUME 92.8 fl (80-96); MEAN PLT VOLUME 8.5 fl (7.5-11.1); MONO % 9.4 % (3.8-10.2); NEUT % 64.2 % (42.8-82.8); PLATELET COUNT 175 K/MM3 (134-434); RBC 3.75 M/mm3 (3.60-5.2); RDW 17.6 % (11.6-15.6)
[2018-09-12 12:56] LABS: ANION GAP 8 MMOL/L (8-16); BLOOD UREA NITROGEN 22 mg/dL (7-18); CALCIUM 9.2 mg/dL (8.5-10.1); CHLORIDE 95 mmol/L (98-107); CO2 32 mmol/L (21-32); CREATININE 3.4 mg/dL (0.55-1.3); GLUCOSE,RANDOM 166 mg/dL (74-106); POTASSIUM 4.9 mmol/L (3.5-5.1); SODIUM 134 mmol/L (136-145)
--- NOTE | 2018-09-12 13:23 | PN ---
Progress Note, Physician - Current Medication List Current Medications: Active Medications Acetaminophen (Tylenol -) 650 mg PO Q6H PRN PRN Reason: PAIN LEVEL 1-5 Amlodipine Besylate (Norvasc -) 10 mg PO DAILY [facility] Last Admin: 09/12/18 09:17 Dose: 10 mg Atorvastatin Calcium (Lipitor -) 10 mg PO HS [facility] Last Admin: 09/11/18 23:01 Dose: 10 mg Calcium Acetate (Phoslo -) 667 mg PO TIDCM [facility] Last Admin: 09/12/18 12:51 Dose: 667 mg Clopidogrel Bisulfate (Plavix -) 75 mg PO DAILY [facility] Last Admin: 09/12/18 09:17 Dose: 75 mg Collagenase (Santyl -) 1 applic TP DAILY [facility]; Protocol Docusate Sodium (Colace -) 100 mg PO TID [facility] Last Admin: 09/12/18 06:35 Dose: 100 mg Fentanyl (Sublimaze Injection -) 25 mcg IVPUSH [id number] PRN PRN Reason: PAIN-PACU ORDER X 4 DOSES ONLY Heparin Sodium (Porcine) (Heparin -) 5,000 unit SQ TID [facility] Last Admin: 09/12/18 06:36 Dose: 5,000 unit Sodium Chloride (Normal Saline -) 250 mls @ 3,000 mls/hr IV PRN PRN PRN Reason: Hypotension during Dialysis Stop: 09/12/18 06:50 Piperacillin Sod/Tazobactam (Sod 2.25 gm/ Dextrose) 50 mls @ 100 mls/hr IVPB Q8H-IV [facility]; Protocol Last Admin: 09/12/18 09:18 Dose: 100 mls/hr Sodium Chloride (Normal Saline -) 250 mls @ 3,000 mls/hr IV PRN PRN PRN Reason: Hypotension during Dialysis Stop: 09/13/18 11:55 Insulin Aspart (Novolog Vial Sliding Scale -) 1 vial SQ ACHS [facility]; Protocol Last Admin: 09/12/18 12:52 Dose: 2 units Labetalol HCl (Normodyne -) 300 mg PO TID [facility] Last Admin: 09/12/18 06:35 Dose: 300 mg Ondansetron HCl (Zofran Injection) 4 mg IVPUSH Q6H PRN PRN Reason: NAUSEA AND/OR VOMITING Oxycodone HCl (Roxicodone -) 5 mg PO Q4H PRN PRN Reason: PAIN LEVEL 1-5 Stop: 09/12/18 21:23 Promethazine HCl (Phenergan Injection -) 12.5 mg IVPUSH Q6H PRN PRN Reason: NAUSEA-FOR RESCUE AFTER 15 MIN Senna (Senna -) 2 tab PO HS [facility] Last Admin: 09/11/18 23:00 Dose: 2 tab Sevelamer Carbonate (Renvela -) 800 mg PO TIDCM [facility] Last Admin: 09/12/18 12:51 Dose: 800 mg - Objective Vital Signs: Vital Signs Temperature 98.4 F 09/12/18 09:00 Pulse Rate 72 09/12/18 09:00 Respiratory Rate 18 09/12/18 09:00 Blood Pressure 143/74 09/12/18 09:00 O2 Sat by Pulse Oximetry (%) 97 09/11/18 22:25 Labs: CBC, BMP 09/12/18 11:35 09/12/18 11:35 INR, PTT INR 1.11 (0.83-1.09) H 09/07/18 06:00
[2018-09-12] MEDS: COLLAGENASE CLOSTRIDIUM HIST. 30 GRAMS TUBE TP SCH (18:29)
[2018-09-12] MEDS: SENNOSIDES 8.6MG TABLET (FP) PO SCH (22:10)
[2018-09-12] MEDS: ATORVASTATIN CA 10 MG TABLET (FP) PO SCH (22:11)
[2018-09-13] MEDS ORDERED: DEXTROSE 5%-WATER - 50 ML IVPB ONE ×2 (00:39→08:40)
[2018-09-13] MEDS ORDERED: PIPERACILLIN/TAZOBACTAM 2.25 GM VIAL IVPB ONE ×2 (00:39→08:40)
[2018-09-13] MEDS: PIPERACILLIN/TAZOB 2.25 GM 2.25 GM in DEXTROSE 5%-WATER - 50 ML IVPB SCH ×2 (02:13→14:44)
[2018-09-13] MEDS ORDERED: SIMETHICONE 80 MG TAB.CHEW (FP) PO PRN (02:43)
[2018-09-13] MEDS: HEPARIN NA (PORCINE) 5,000 UNITS/ML 1ML VIAL SQ SCH (06:45)
[2018-09-13] MEDS: DOCUSATE SODIUM 100 MG CAPSULE (FP) PO SCH ×3 (06:46→22:13)
[2018-09-13] MEDS: LABETALOL HCL 100 MG TABLET (FP) PO SCH ×3 (06:46→22:13)
[2018-09-13] MEDS: INSULIN SLIDING SCALE (NOVOLOG) 1 VIAL SQ SCH ×4 (06:47→22:13)
[2018-09-13] MEDS ORDERED: PT OWN MED DRAWER 7, Y5N ONE (08:40)
[2018-09-13] MEDS: CALCIUM ACETATE 667 MG CAPSULE (FP) PO SCH ×3 (08:52→17:57)
[2018-09-13] MEDS: SEVELAMER CARBONATE 800 MG TAB (FP) PO SCH ×3 (08:52→17:57)
--- NOTE | 2018-09-13 09:06 | PN ---
Progress Note (short form) - Note Progress Note: fu left foot. vss, tmax 98.4 +increasing gangrenous changes, +necrotic tissue, +drainage, -mal odor, wound culture pending gangarene Discussed with vascular. Discussed with daughter. Patient and daughter agreed to debridement necrotic bone and soft tissue incuding amputation of toes 1&2 left. Daughter fully understands all risks benefits and alternatives. patient is scheduled for OR tomorrow 11am. Santyl dressing change. Please optimize for OR.
[2018-09-13 09:09] LABS: BASO % 1.2 % (0-2.0); EOS % 4.3 % (0-4.5); HEMATOCRIT 34.1 % (32.4-45.2); HEMOGLOBIN 11.3 GM/dL (10.7-15.3); LYMPH % 31.6 % (8-40); MCH 30.2 pg (25.7-33.7); MCHC 33.2 g/dl (32.0-36.0); MEAN PLT VOLUME 8.3 fl (7.5-11.1); MONO % 9.2 % (3.8-10.2); NEUT % 53.7 % (42.8-82.8); PLATELET COUNT 169 K/MM3 (134-434); RBC 3.74 M/mm3 (3.60-5.2); RDW 17.4 % (11.6-15.6); WHITE BLOOD COUNT 4.7 K/mm3 (4.0-10.0)
[2018-09-13 09:45] LABS: ANION GAP 9 MMOL/L (8-16); BLOOD UREA NITROGEN 31 mg/dL (7-18); CALCIUM 9.4 mg/dL (8.5-10.1); CHLORIDE 94 mmol/L (98-107); CO2 29 mmol/L (21-32); GLUCOSE,RANDOM 78 mg/dL (74-106); MAGNESIUM 2.1 mg/dL (1.8-2.4); PHOSPHOROUS 3.1 mg/dL (2.5-4.9); POTASSIUM 5.3 mmol/L (3.5-5.1); SODIUM 133 mmol/L (136-145)
[2018-09-13] MEDS: COLLAGENASE CLOSTRIDIUM HIST. 30 GRAMS TUBE TP SCH (10:00)
--- NOTE | 2018-09-13 11:54 | PN ---
Progress Note, Physician Chief Complaint: Pt lying in bed in no acute distress. Denies any chest pain, sob, n/v/d - Current Medication List Current Medications: Active Medications Acetaminophen (Tylenol -) 650 mg PO Q6H PRN PRN Reason: PAIN LEVEL 1-5 Last Admin: 09/13/18 06:46 Dose: 650 mg Amlodipine Besylate (Norvasc -) 10 mg PO DAILY [facility] Last Admin: 09/12/18 09:17 Dose: 10 mg Atorvastatin Calcium (Lipitor -) 10 mg PO HS [facility] Last Admin: 09/12/18 22:11 Dose: 10 mg Calcium Acetate (Phoslo -) 667 mg PO TIDCM [facility] Last Admin: 09/13/18 08:52 Dose: 667 mg Collagenase (Santyl -) 1 applic TP DAILY [facility]; Protocol Last Admin: 09/12/18 18:29 Dose: 1 applic Docusate Sodium (Colace -) 100 mg PO TID [facility] Last Admin: 09/13/18 06:46 Dose: 100 mg Fentanyl (Sublimaze Injection -) 25 mcg IVPUSH [id number] PRN PRN Reason: PAIN-PACU ORDER X 4 DOSES ONLY Heparin Sodium (Porcine) (Heparin -) 5,000 unit SQ TID [facility] Last Admin: 09/13/18 06:45 Dose: 5,000 unit Sodium Chloride (Normal Saline -) 250 mls @ 3,000 mls/hr IV PRN PRN PRN Reason: Hypotension during Dialysis Stop: 09/12/18 06:50 Piperacillin Sod/Tazobactam (Sod 2.25 gm/ Dextrose) 50 mls @ 100 mls/hr IVPB Q8H-IV [facility]; Protocol Last Admin: 09/13/18 02:13 Dose: 100 mls/hr Sodium Chloride (Normal Saline -) 250 mls @ 3,000 mls/hr IV PRN PRN PRN Reason: Hypotension during Dialysis Stop: 09/13/18 11:55 Insulin Aspart (Novolog Vial Sliding Scale -) 1 vial SQ ACHS [facility]; Protocol Last Admin: 09/13/18 11:31 Dose: Not Given Labetalol HCl (Normodyne -) 300 mg PO TID [facility] Last Admin: 09/13/18 06:46 Dose: 300 mg Ondansetron HCl (Zofran Injection) 4 mg IVPUSH Q6H PRN PRN Reason: NAUSEA AND/OR VOMITING Promethazine HCl (Phenergan Injection -) 12.5 mg IVPUSH Q6H PRN PRN Reason: NAUSEA-FOR RESCUE AFTER 15 MIN Senna (Senna -) 2 tab PO HS [facility] Last Admin: 09/12/18 22:10 Dose: 2 tab Sevelamer Carbonate (Renvela -) 800 mg PO TIDCM [facility] Last Admin: 09/13/18 08:52 Dose: 800 mg Simethicone (Mylicon -) 80 mg PO QID PRN PRN Reason: GAS Last Admin: 09/13/18 03:02 Dose: 80 mg - Objective Vital Signs: Vital Signs Temperature 98.1 F 09/13/18 09:30 Pulse Rate 60 09/13/18 11:20 Respiratory Rate 18 09/13/18 11:20 Blood Pressure 139/71 09/13/18 11:20 O2 Sat by Pulse Oximetry (%) 100 09/12/18 21:00 Constitutional: Yes: Well Nourished, No Distress Cardiovascular: Yes: Regular Rate and Rhythm, Murmur Respiratory: Yes: WNL, Regular, CTA Bilaterally. No: Accessory Muscle Use, SOB , Tachypnea, Wheezes Gastrointestinal: Yes: WNL, Normal Bowel Sounds, Soft. No: Distention, Tenderness Genitourinary: Yes: WNL Edema: No Integumentary: Yes: Other (left foot metatarsal wound) Wound/Incision: Yes: Dressing Dry and Intact Neurological: Yes: WNL, Alert, Oriented Psychiatric: Yes: WNL, Alert, Oriented Labs: CBC, BMP 09/13/18 07:45 09/13/18 08:00 INR, PTT INR 1.11 (0.83-1.09) H 09/07/18 06:00 Assessment/Plan (1) Wound infection Assessment/Plan: worsening discoloration to left 2nd/1st digit s/p anterior tibial angioplasty antibx per ID plan for debridement, amputation of left 1st/2nd digits tmrw pt is medically cleared for procedure tomorrow Code(s): T14.8XXA - OTHER INJURY OF UNSPECIFIED BODY REGION, INITIAL ENCOUNTER; L08.9 - LOCAL INFECTION OF THE SKIN AND SUBCUTANEOUS TISSUE, UNSP (2) ESRD (end stage renal disease) on dialysis Assessment/Plan: nephrology following Code(s): N18.6 - END STAGE RENAL DISEASE; Z99.2 - DEPENDENCE ON RENAL DIALYSIS (3) Calciphylaxis Assessment/Plan: chronic nephrology following Code(s): E83.59 - OTHER DISORDERS OF CALCIUM METABOLISM (4) Hypertension Assessment/Plan: controlled continue amlodipine, labetalol Code(s): I10 - ESSENTIAL (PRIMARY) HYPERTENSION Qualifiers: Hypertension type: essential hypertension Qualified Code(s): I10 - Essential (primary) hypertension (5) Diabetes Assessment/Plan: BGM Insulin sliding scale diabetic diet Code(s): E11.9 - TYPE 2 DIABETES MELLITUS WITHOUT COMPLICATIONS Qualifiers: Diabetes mellitus type: type 2 Diabetes mellitus skilled nursing insulin use: without terminal press operator use Diabetes mellitus complication status: with kidney complications Diabetes mellitus complication detail: with chronic kidney disease Chronic kidney disease stage: on chronic dialysis Qualified Code(s) : E11.22 - Type 2 diabetes mellitus with diabetic chronic kidney disease; N18.6 - End stage renal disease; Z99.2 - Dependence on renal dialysis (6) Hyperlipidemia Assessment/Plan: stable continue statin Code(s): E78.5 - HYPERLIPIDEMIA, UNSPECIFIED Qualifiers: Hyperlipidemia type: pure hypercholesterolemia Qualified Code(s): E78.00 - Pure hypercholesterolemia, unspecified; E78.0 - Pure hypercholesterolemia (7) GERD (gastroesophageal reflux disease) Assessment/Plan: stable Code(s): K21.9 - GASTRO-ESOPHAGEAL REFLUX DISEASE WITHOUT ESOPHAGITIS Qualifiers: Esophagitis presence: without esophagitis Qualified Code(s): K21.9 - Gastro -esophageal reflux disease without esophagitis
[2018-09-13 12:08] LABS: INR 1.1 (0.83-1.09)
--- NOTE | 2018-09-13 12:57 | PN ---
Progress Note (short form) - Note Progress Note: Renal follow up for ESRD on HD Pt seen and examined during dialysis BP stable, goal UF 2.5L, access with good flow pt w/o complaints no sob, cp, abd pain, fever, chills Vital Signs Temperature 98.1 F 09/13/18 09:30 Pulse Rate 60 09/13/18 12:50 Respiratory Rate 18 09/13/18 12:50 Blood Pressure 158/60 09/13/18 12:50 O2 Sat by Pulse Oximetry (%) 100 09/12/18 21:00 NAD awake and alert no LE edema CBC, BMP 09/13/18 07:45 09/13/18 08:00 Current Medications Acetaminophen (Tylenol -) 650 mg PO Q6H PRN PRN Reason: PAIN LEVEL 1-5 Last Admin: 09/13/18 06:46 Dose: 650 mg Amlodipine Besylate (Norvasc -) 10 mg PO DAILY [facility] Last Admin: 09/12/18 09:17 Dose: 10 mg Atorvastatin Calcium (Lipitor -) 10 mg PO HS [facility] Last Admin: 09/12/18 22:11 Dose: 10 mg Calcium Acetate (Phoslo -) 667 mg PO TIDCM [facility] Last Admin: 09/13/18 08:52 Dose: 667 mg Collagenase (Santyl -) 1 applic TP DAILY [facility]; Protocol Last Admin: 09/12/18 18:29 Dose: 1 applic Docusate Sodium (Colace -) 100 mg PO TID [facility] Last Admin: 09/13/18 06:46 Dose: 100 mg Fentanyl (Sublimaze Injection -) 25 mcg IVPUSH [id number] PRN PRN Reason: PAIN-PACU ORDER X 4 DOSES ONLY Heparin Sodium (Porcine) (Heparin -) 5,000 unit SQ TID [facility] Last Admin: 09/13/18 06:45 Dose: 5,000 unit Sodium Chloride (Normal Saline -) 250 mls @ 3,000 mls/hr IV PRN PRN PRN Reason: Hypotension during Dialysis Stop: 09/12/18 06:50 Piperacillin Sod/Tazobactam (Sod 2.25 gm/ Dextrose) 50 mls @ 100 mls/hr IVPB Q8H-IV [facility]; Protocol Last Admin: 09/13/18 02:13 Dose: 100 mls/hr Sodium Chloride (Normal Saline -) 250 mls @ 3,000 mls/hr IV PRN PRN PRN Reason: Hypotension during Dialysis Stop: 09/13/18 11:55 Insulin Aspart (Novolog Vial Sliding Scale -) 1 vial SQ ACHS [facility]; Protocol Last Admin: 09/13/18 11:31 Dose: Not Given Labetalol HCl (Normodyne -) 300 mg PO TID [facility] Last Admin: 09/13/18 06:46 Dose: 300 mg Ondansetron HCl (Zofran Injection) 4 mg IVPUSH Q6H PRN PRN Reason: NAUSEA AND/OR VOMITING Promethazine HCl (Phenergan Injection -) 12.5 mg IVPUSH Q6H PRN PRN Reason: NAUSEA-FOR RESCUE AFTER 15 MIN Senna (Senna -) 2 tab PO HS [facility] Last Admin: 09/12/18 22:10 Dose: 2 tab Sevelamer Carbonate (Renvela -) 800 mg PO TIDCM [facility] Last Admin: 09/13/18 08:52 Dose: 800 mg Simethicone (Mylicon -) 80 mg PO QID PRN PRN Reason: GAS Last Admin: 09/13/18 03:02 Dose: 80 mg 77 year old woman with hx of ESRD, DM, HTN, HLD s/p recent TMA of left foot for gas forming infection presented with worsening wound infection. #ESRD on HD #LE Wound infection with suspected PVD #HTN #DM #Renal Osteodystrophy Tolerating dialysis well continue Abx as per ID Vascular follow up continue same antihypertensives renal diet Asa Smith DO
[2018-09-13 14:02] VITALS: BMI 26.2
[2018-09-13] MEDS: amLODIPine BESYLATE 10 MG TABLET (FP) PO SCH (14:52)
--- NOTE | 2018-09-13 16:46 | PN ---
Progress Note, Physician History of Present Illness: stable no new issues - Current Medication List Current Medications: Active Medications Acetaminophen (Tylenol -) 650 mg PO Q6H PRN PRN Reason: PAIN LEVEL 1-5 Last Admin: 09/13/18 06:46 Dose: 650 mg Amlodipine Besylate (Norvasc -) [address] [facility] Last Admin: 09/13/18 14:52 Dose: 10 mg Atorvastatin Calcium (Lipitor -) [address] [facility] Last Admin: 09/12/18 22:11 Dose: 10 mg Calcium Acetate (Phoslo -) [address] [facility] Last Admin: 09/13/18 14:42 Dose: 667 mg Collagenase (Santyl -) [address] [facility]; Protocol Last Admin: 09/12/18 18:29 Dose: 1 applic Docusate Sodium (Colace -) [address] [facility] Last Admin: 09/13/18 14:42 Dose: 100 mg Fentanyl (Sublimaze Injection -) 25 mcg IVPUSH [id number] PRN PRN Reason: PAIN-PACU ORDER X 4 DOSES ONLY Heparin Sodium (Porcine) (Heparin -) 5,[address] [facility] Last Admin: 09/13/18 06:45 Dose: 5,000 unit Sodium Chloride (Normal Saline -) 250 mls @ 3,000 mls/hr IV PRN PRN PRN Reason: Hypotension during Dialysis Stop: 09/13/18 11:55 Dextrose/Sodium Chloride (D5-1/2ns -) 1,000 mls @ 42 mls/hr IV ASDIR [facility] Stop: 09/14/18 23:58 Insulin Aspart (Novolog Vial Sliding Scale -) [facility]; Protocol Last Admin: 09/13/18 11:31 Dose: Not Given Labetalol HCl (Normodyne -) [address] [facility] Last Admin: 09/13/18 06:46 Dose: 300 mg Ondansetron HCl (Zofran Injection) 4 mg IVPUSH Q6H PRN PRN Reason: NAUSEA AND/OR VOMITING Promethazine HCl (Phenergan Injection -) 12.5 mg IVPUSH Q6H PRN PRN Reason: NAUSEA-FOR RESCUE AFTER 15 MIN Senna (Senna -) 2 tab PO [facility] Last Admin: 09/12/18 22:10 Dose: 2 tab Sevelamer Carbonate (Renvela -) 800 mg PO TIDCM [facility] Last Admin: 09/13/18 14:43 Dose: 800 mg Simethicone (Mylicon -) 80 mg PO QID PRN PRN Reason: GAS Last Admin: 09/13/18 03:02 Dose: 80 mg - Objective Vital Signs: Vital Signs Temperature 97.8 F 09/13/18 16:10 Pulse Rate 68 09/13/18 16:10 Respiratory Rate 20 09/13/18 16:10 Blood Pressure 160/83 09/13/18 16:10 O2 Sat by Pulse Oximetry (%) 100 09/12/18 21:00 Constitutional: Yes: No Distress, Calm Cardiovascular: Yes: S1, S2 Respiratory: Yes: Regular, CTA Bilaterally Gastrointestinal: Yes: Normal Bowel Sounds, Soft Musculoskeletal: Yes: WNL Extremities: Yes: WNL Neurological: Yes: Alert, Oriented Psychiatric: Yes: Alert, Oriented Labs: CBC, BMP 09/13/18 07:45 INR, PTT INR 1.10 (0.83-1.09) H 09/13/18 11:30 Assessment/Plan Problem List - Problems (1) Gangrene Code(s): I96 - GANGRENE, NOT ELSEWHERE CLASSIFIED (2) ESRD (end stage renal disease) on dialysis Code(s): N18.6 - END STAGE RENAL DISEASE; Z99.2 - DEPENDENCE ON RENAL DIALYSIS (3) Calciphylaxis Code(s): E83.59 - OTHER DISORDERS OF CALCIUM METABOLISM (4) Hypertension Code(s): I10 - ESSENTIAL (PRIMARY) HYPERTENSION Qualifiers: Hypertension type: essential hypertension Qualified Code(s): I10 - Essential (primary) hypertension (5) Diabetes Code(s): E11.9 - TYPE 2 DIABETES MELLITUS WITHOUT COMPLICATIONS Qualifiers: Diabetes mellitus type: type 2 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 use: without middle or intermediate school principal use Diabetes mellitus complication status: with kidney complications Diabetes mellitus complication detail: with chronic kidney disease Chronic kidney disease stage: on chronic dialysis Qualified Code(s) : E11.22 - Type 2 diabetes mellitus with diabetic chronic kidney disease; N18.6 - End stage renal disease; Z99.2 - Dependence on renal dialysis (6) Hyperlipidemia Code(s): E78.5 - HYPERLIPIDEMIA, UNSPECIFIED Qualifiers: Hyperlipidemia type: pure hypercholesterolemia Qualified Code(s): E78.00 - Pure hypercholesterolemia, unspecified; E78.0 - Pure hypercholesterolemia (7) GERD (gastroesophageal reflux disease) Code(s): K21.9 - GASTRO-ESOPHAGEAL REFLUX DISEASE WITHOUT ESOPHAGITIS Qualifiers: Esophagitis presence: without esophagitis Qualified Code(s): K21.9 - Gastro -esophageal reflux disease without esophagitis plan will stop vanco wound care rest as per the team patient stable
[2018-09-13] MEDS: ATORVASTATIN CA 10 MG TABLET (FP) PO SCH (22:13)
[2018-09-13] MEDS: SENNOSIDES 8.6MG TABLET (FP) PO SCH (22:13)
[2018-09-13] MEDS ORDERED: DEXTROSE 5%-0.45% SALINE 1,000 ML IV SCH (23:59)
[2018-09-14] MEDS ORDERED: DEXTROSE 50%-WATER - 25 GM/50 ML VIAL IVPUSH ONE (06:02)
[2018-09-14] MEDS: INSULIN SLIDING SCALE (NOVOLOG) 1 VIAL SQ SCH ×4 (06:09→22:07)
[2018-09-14] MEDS: DOCUSATE SODIUM 100 MG CAPSULE (FP) PO SCH ×3 (06:09→21:50)
[2018-09-14] MEDS: LABETALOL HCL 100 MG TABLET (FP) PO SCH ×3 (06:09→21:49)
[2018-09-14 07:50] LABS: ANION GAP 7 MMOL/L (8-16); BLOOD UREA NITROGEN 17 mg/dL (7-18); CALCIUM 8.6 mg/dL (8.5-10.1); CHLORIDE 97 mmol/L (98-107); CO2 33 mmol/L (21-32); CREATININE 2.8 mg/dL (0.55-1.3); GLUCOSE,RANDOM 67 mg/dL (74-106); POTASSIUM 4.3 mmol/L (3.5-5.1); SODIUM 137 mmol/L (136-145)
[2018-09-14] MEDS: SEVELAMER CARBONATE 800 MG TAB (FP) PO SCH ×3 (10:01→17:14)
[2018-09-14] MEDS: amLODIPine BESYLATE 10 MG TABLET (FP) PO SCH (10:01)
[2018-09-14] MEDS: CALCIUM ACETATE 667 MG CAPSULE (FP) PO SCH ×3 (10:01→17:13)
[2018-09-14] MEDS: COLLAGENASE CLOSTRIDIUM HIST. 30 GRAMS TUBE TP SCH (10:02)
--- NOTE | 2018-09-14 10:34 | PN ---
Progress Note, Physician Chief Complaint: Pt lying in bed in no acute distress. Had some confusion this am from hypoglycemia.Denies any chest pain, sob, n/v/d - Current Medication List Current Medications: Active Medications Acetaminophen (Tylenol -) 650 mg PO Q6H PRN PRN Reason: PAIN LEVEL 1-5 Last Admin: 09/13/18 06:46 Dose: 650 mg Amlodipine Besylate (Norvasc -) 10 mg PO DAILY [facility] Last Admin: 09/14/18 10:01 Dose: Not Given Atorvastatin Calcium (Lipitor -) 10 mg PO HS [facility] Last Admin: 09/13/18 22:13 Dose: 10 mg Calcium Acetate (Phoslo -) 667 mg PO TIDCM [facility] Last Admin: 09/14/18 10:01 Dose: Not Given Collagenase (Santyl -) 1 applic TP DAILY [facility]; Protocol Last Admin: 09/14/18 10:02 Dose: Not Given Docusate Sodium (Colace -) 100 mg PO TID [facility] Last Admin: 09/14/18 06:09 Dose: Not Given Fentanyl (Sublimaze Injection -) 25 mcg IVPUSH [id number] PRN PRN Reason: PAIN-PACU ORDER X 4 DOSES ONLY Heparin Sodium (Porcine) (Heparin -) 5,000 unit SQ TID [facility] Last Admin: 09/13/18 06:45 Dose: 5,000 unit Sodium Chloride (Normal Saline -) 250 mls @ 3,000 mls/hr IV PRN PRN PRN Reason: Hypotension during Dialysis Stop: 09/13/18 11:55 Dextrose/Sodium Chloride (D5-1/2ns -) 1,000 mls @ 42 mls/hr IV ASDIR [facility] Stop: 09/14/18 23:58 Last Admin: 09/13/18 23:13 Dose: 42 mls/hr Insulin Aspart (Novolog Vial Sliding Scale -) 1 vial SQ ACHS [facility]; Protocol Last Admin: 09/14/18 06:09 Dose: Not Given Labetalol HCl (Normodyne -) 300 mg PO TID [facility] Last Admin: 09/14/18 06:09 Dose: Not Given Ondansetron HCl (Zofran Injection) 4 mg IVPUSH Q6H PRN PRN Reason: NAUSEA AND/OR VOMITING Promethazine HCl (Phenergan Injection -) 12.5 mg IVPUSH Q6H PRN PRN Reason: NAUSEA-FOR RESCUE AFTER 15 MIN Senna (Senna -) 2 tab PO HS [facility] Last Admin: 09/13/18 22:13 Dose: 2 tab Sevelamer Carbonate (Renvela -) 800 mg PO TIDCM [facility] Last Admin: 09/14/18 10:01 Dose: Not Given Simethicone (Mylicon -) 80 mg PO QID PRN PRN Reason: GAS Last Admin: 09/13/18 03:02 Dose: 80 mg - Objective Vital Signs: Vital Signs Temperature 97.9 F 09/14/18 08:56 Pulse Rate 68 09/14/18 08:56 Respiratory Rate 20 09/14/18 08:56 Blood Pressure 159/64 09/14/18 08:56 O2 Sat by Pulse Oximetry (%) 100 09/13/18 21:00 Constitutional: Yes: Well Nourished, No Distress, Calm Cardiovascular: Yes: Regular Rate and Rhythm, Murmur Respiratory: Yes: WNL, Regular, CTA Bilaterally. No: Accessory Muscle Use, SOB , Tachypnea, Wheezes Gastrointestinal: Yes: WNL, Normal Bowel Sounds, Soft. No: Distention, Tenderness Genitourinary: Yes: WNL Edema: No Wound/Incision: Yes: Dressing Dry and Intact Neurological: Yes: WNL, Alert, Oriented Psychiatric: Yes: WNL, Alert, Oriented Labs: CBC, BMP 09/13/18 07:45 09/14/18 06:20 INR, PTT INR 1.10 (0.83-1.09) H 09/13/18 11:30 Assessment/Plan (1) Wound infection Assessment/Plan: worsening discoloration to left 2nd/1st digit s/p anterior tibial angioplasty OR today for debridement, amputation of left 1st/2nd digits antibx per ID Code(s): T14.8XXA - OTHER INJURY OF UNSPECIFIED BODY REGION, INITIAL ENCOUNTER; L08.9 - LOCAL INFECTION OF THE SKIN AND SUBCUTANEOUS TISSUE, UNSP (2) ESRD (end stage renal disease) on dialysis Assessment/Plan: nephrology following Code(s): N18.6 - END STAGE RENAL DISEASE; Z99.2 - DEPENDENCE ON RENAL DIALYSIS (3) Calciphylaxis Assessment/Plan: chronic nephrology following Code(s): E83.59 - OTHER DISORDERS OF CALCIUM METABOLISM (4) Hypertension Assessment/Plan: controlled continue amlodipine, labetalol Code(s): I10 - ESSENTIAL (PRIMARY) HYPERTENSION Qualifiers: Hypertension type: essential hypertension Qualified Code(s): I10 - Essential (primary) hypertension (5) Diabetes Assessment/Plan: intermittent episodes of hypoglycemia BGM diabetic diet Code(s): E11.9 - TYPE 2 DIABETES MELLITUS WITHOUT COMPLICATIONS Qualifiers: Diabetes mellitus type: type 2 Diabetes mellitus correction insulin use: without correction use Diabetes mellitus complication status: with kidney complications Diabetes mellitus complication detail: with chronic kidney disease Chronic kidney disease stage: on chronic dialysis Qualified Code(s) : E11.22 - Type 2 diabetes mellitus with diabetic chronic kidney disease; N18.6 - End stage renal disease; Z99.2 - Dependence on renal dialysis (6) Hyperlipidemia Assessment/Plan: stable continue statin Code(s): E78.5 - HYPERLIPIDEMIA, UNSPECIFIED Qualifiers: Hyperlipidemia type: pure hypercholesterolemia Qualified Code(s): E78.00 - Pure hypercholesterolemia, unspecified; E78.0 - Pure hypercholesterolemia (7) GERD (gastroesophageal reflux disease) Assessment/Plan: stable Code(s): K21.9 - GASTRO-ESOPHAGEAL REFLUX DISEASE WITHOUT ESOPHAGITIS Qualifiers: Esophagitis presence: without esophagitis Qualified Code(s): K21.9 - Gastro -esophageal reflux disease without esophagitis
[2018-09-14] MEDS ORDERED: MIDAZOLAM HCL 2 MG/2 ML SINGLE DOSE VIAL ONE (11:17)
[2018-09-14] MEDS ORDERED: PROPOFOL 20 ML ONE (11:25)
[2018-09-14] MEDS ORDERED: LIDOCAINE HCL 1%, 10 MG/ML (20ML VIAL) NR ONE ×2 (11:39)
[2018-09-14] MEDS ORDERED: BACITRACIN 50,000 UNITS VIAL TP ONE (11:50)
[2018-09-14] MEDS ORDERED: ONDANSETRON 4 MG/2 ML VIAL ONE (12:23)
[2018-09-14] MEDS ORDERED: ONDANSETRON 4 MG/2 ML VIAL IVPUSH PRN ×2 (12:44→12:58)
[2018-09-14] MEDS ORDERED: SODIUM CHLORIDE 1,000 ML IV SCH (12:45)
[2018-09-14] MEDS ORDERED: PROMETHAZINE HCL 25 MG/1 ML VIAL IVPUSH PRN (12:58)
[2018-09-14] MEDS ORDERED: SIMETHICONE 80 MG TAB.CHEW (FP) PO PRN (12:58)
[2018-09-14] MEDS ORDERED: DEXTROSE 5%-0.45% SALINE 1,000 ML IV SCH (12:58)
[2018-09-14] MEDS ORDERED: SODIUM CHLORIDE 250 ML IV PRN (12:58)
--- NOTE | 2018-09-14 14:00 | PN ---
Progress Note, Physician - Current Medication List Current Medications: Active Medications Acetaminophen (Tylenol -) 650 mg PO Q6H PRN PRN Reason: PAIN LEVEL 1-5 Amlodipine Besylate (Norvasc -) 10 mg PO DAILY [facility] Atorvastatin Calcium (Lipitor -) 10 mg PO HS [facility] Calcium Acetate (Phoslo -) 667 mg PO TIDCM [facility] Docusate Sodium (Colace -) 100 mg PO TID [facility] Fentanyl (Sublimaze Injection -) 25 mcg IVPUSH [id number] PRN PRN Reason: PAIN-PACU ORDER X 4 DOSES ONLY Stop: 09/15/18 12:43 Sodium Chloride (Normal Saline -) 1,000 mls @ 42 mls/hr IV ASDIR [facility] Sodium Chloride (Normal Saline -) 250 mls @ 3,000 mls/hr IV PRN PRN PRN Reason: Hypotension during Dialysis Dextrose/Sodium Chloride (D5-1/2ns -) 1,000 mls @ 42 mls/hr IV ASDIR [facility] Stop: 09/14/18 23:58 Insulin Aspart (Novolog Vial Sliding Scale -) 1 vial SQ ACHS [facility]; Protocol Labetalol HCl (Normodyne -) 300 mg PO TID [facility] Ondansetron HCl (Zofran Injection) 4 mg IVPUSH Q6H PRN PRN Reason: NAUSEA AND/OR VOMITING Promethazine HCl (Phenergan Injection -) 12.5 mg IVPUSH Q6H PRN PRN Reason: NAUSEA-FOR RESCUE AFTER 15 MIN Senna (Senna -) 2 tab PO HS [facility] Sevelamer Carbonate (Renvela -) 800 mg PO TIDCM [facility] Simethicone (Mylicon -) 80 mg PO QID PRN PRN Reason: GAS - Objective Vital Signs: Vital Signs Temperature 97.9 F 09/14/18 08:56 Pulse Rate 68 09/14/18 08:56 Respiratory Rate 20 09/14/18 08:56 Blood Pressure 159/64 09/14/18 08:56 O2 Sat by Pulse Oximetry (%) 100 09/13/18 21:00 Labs: CBC, BMP 09/13/18 07:45 09/14/18 06:20 INR, PTT INR 1.10 (0.83-1.09) H 09/13/18 11:30
--- NOTE | 2018-09-14 15:08 | OP ---
Operative Note - Note: Operative Date: 09/14/18 Pre-Operative Diagnosis: [place] Operation: TMA 1&2, revsion metatarsal 3, 4, 5 left foot, plantar flap Findings: Necrotic bone and soft tissue. Implants: none Post-Operative Diagnosis: Same as Pre-op Surgeon: Remi Paul Anesthesia: MAC Estimated Blood Loss (mls): 30 Instrument used (Debridements only): Scalpel and blade. Saggital saw. Operative Report Dictated: No
[2018-09-14] MEDS: ACETAMINOPHEN 325 MG TABLET (FP) PO PRN (17:14)
[2018-09-14] MEDS: SENNOSIDES 8.6MG TABLET (FP) PO SCH (21:49)
[2018-09-14] MEDS: ATORVASTATIN CA 10 MG TABLET (FP) PO SCH (21:50)
[2018-09-15] MEDS: ACETAMINOPHEN 325 MG TABLET (FP) PO PRN ×3 (03:20→17:51)
[2018-09-15] MEDS: DOCUSATE SODIUM 100 MG CAPSULE (FP) PO SCH ×3 (06:30→22:56)
[2018-09-15] MEDS: INSULIN SLIDING SCALE (NOVOLOG) 1 VIAL SQ SCH ×4 (06:31→22:55)
[2018-09-15] MEDS: LABETALOL HCL 100 MG TABLET (FP) PO SCH ×3 (07:00→22:55)
[2018-09-15 07:46] LABS: EOS % 4.1 % (0-4.5); HEMATOCRIT 33.5 % (32.4-45.2); HEMOGLOBIN 10.9 GM/dL (10.7-15.3); LYMPH % 21.9 % (8-40); MCH 30.1 pg (25.7-33.7); MCHC 32.7 g/dl (32.0-36.0); MEAN CELL VOLUME 92.1 fl (80-96); MEAN PLT VOLUME 8.2 fl (7.5-11.1); MONO % 10.2 % (3.8-10.2); NEUT % 62.8 % (42.8-82.8); PLATELET COUNT 162 K/MM3 (134-434); RBC 3.64 M/mm3 (3.60-5.2); RDW 17.4 % (11.6-15.6); WHITE BLOOD COUNT 5.5 K/mm3 (4.0-10.0)
[2018-09-15 07:54] LABS: ANION GAP 7 MMOL/L (8-16); BLOOD UREA NITROGEN 27 mg/dL (7-18); CALCIUM 9.7 mg/dL (8.5-10.1); CHLORIDE 96 mmol/L (98-107); CO2 32 mmol/L (21-32); CREATININE 4.1 mg/dL (0.55-1.3); GLUCOSE,RANDOM 74 mg/dL (74-106); POTASSIUM 4.8 mmol/L (3.5-5.1); SODIUM 135 mmol/L (136-145)
[2018-09-15] MEDS: CALCIUM ACETATE 667 MG CAPSULE (FP) PO SCH ×3 (08:55→17:52)
[2018-09-15] MEDS: SEVELAMER CARBONATE 800 MG TAB (FP) PO SCH ×3 (08:55→17:52)
[2018-09-15] MEDS: amLODIPine BESYLATE 10 MG TABLET (FP) PO SCH (09:52)
--- NOTE | 2018-09-15 10:50 | PN ---
Progress Note (short form) - Note Progress Note: Renal follow up for ESRD on HD Pt seen and examined at the bedside no acute complaints s/p TMA yesterday no sob, cp, abd pain Vital Signs Temperature 98.1 F 09/15/18 06:00 Pulse Rate 72 09/15/18 06:00 Respiratory Rate 18 09/15/18 06:00 Blood Pressure 151/80 09/15/18 06:00 O2 Sat by Pulse Oximetry (%) 99 09/14/18 21:00 NAD awake and alert no LE edema CBC, BMP 09/15/18 06:30 09/15/18 06:30 Current Medications Acetaminophen (Tylenol -) 650 mg PO Q6H PRN PRN Reason: PAIN LEVEL 1-5 Last Admin: 09/15/18 08:57 Dose: 650 mg Amlodipine Besylate (Norvasc -) 10 mg PO DAILY [facility] Last Admin: 09/15/18 09:52 Dose: Not Given Atorvastatin Calcium (Lipitor -) 10 mg PO HS [facility] Last Admin: 09/14/18 21:50 Dose: 10 mg Calcium Acetate (Phoslo -) 667 mg PO TIDCM [facility] Last Admin: 09/15/18 08:55 Dose: 667 mg Docusate Sodium (Colace -) 100 mg PO TID [facility] Last Admin: 09/15/18 06:30 Dose: 100 mg Fentanyl (Sublimaze Injection -) 25 mcg IVPUSH [id number] PRN PRN Reason: PAIN-PACU ORDER X 4 DOSES ONLY Stop: 09/15/18 12:43 Sodium Chloride (Normal Saline -) 250 mls @ 3,000 mls/hr IV PRN PRN PRN Reason: Hypotension during Dialysis Sodium Chloride (Normal Saline -) 250 mls @ 3,000 mls/hr IV PRN PRN PRN Reason: Hypotension during Dialysis Stop: 09/16/18 10:02 Insulin Aspart (Novolog Vial Sliding Scale -) 1 vial SQ [facility]; Protocol Last Admin: 09/15/18 06:31 Dose: Not Given Labetalol HCl (Normodyne -) 300 mg PO TID [facility] Last Admin: 09/14/18 21:49 Dose: 300 mg Ondansetron HCl (Zofran Injection) 4 mg IVPUSH Q6H PRN PRN Reason: NAUSEA AND/OR VOMITING Promethazine HCl (Phenergan Injection -) 12.5 mg IVPUSH Q6H PRN PRN Reason: NAUSEA-FOR RESCUE AFTER 15 MIN Senna (Senna -) 2 tab PO HS [facility] Last Admin: 09/14/18 21:49 Dose: 2 tab Sevelamer Carbonate (Renvela -) 800 mg PO TIDCM [facility] Last Admin: 09/15/18 08:55 Dose: 800 mg Simethicone (Mylicon -) 80 mg PO QID PRN PRN Reason: GAS 77 year old woman with hx of ESRD, DM, HTN, HLD s/p recent TMA of left foot for gas forming infection presented with worsening wound infection. #ESRD on HD #LE Wound infection with suspected PVD #HTN #DM #Renal Osteodystrophy for dialysis today with 2k bath and goal UF of 2.5L Renal diet, 1.2L fluid restriction continue abx as per ID Post operative management as per podiatry Asa Smith DO
[2018-09-15] MEDS ORDERED: SODIUM CHLORIDE 250 ML IV PRN (12:17)
--- NOTE | 2018-09-15 15:22 | PN ---
Progress Note, Physician - Current Medication List Current Medications: Active Medications Acetaminophen (Tylenol -) 650 mg PO Q6H PRN PRN Reason: PAIN LEVEL 1-5 Last Admin: 09/15/18 08:57 Dose: 650 mg Amlodipine Besylate (Norvasc -) 10 mg PO DAILY [facility] Last Admin: 09/15/18 09:52 Dose: Not Given Atorvastatin Calcium (Lipitor -) 10 mg PO [facility] Last Admin: 09/14/18 21:50 Dose: 10 mg Calcium Acetate (Phoslo -) 667 mg PO TIDCM [facility] Last Admin: 09/15/18 12:27 Dose: Not Given Docusate Sodium (Colace -) 100 mg PO TID [facility] Last Admin: 09/15/18 06:30 Dose: 100 mg Sodium Chloride (Normal Saline -) 250 mls @ 3,000 mls/hr IV PRN PRN PRN Reason: Hypotension during Dialysis Sodium Chloride (Normal Saline -) 250 mls @ 3,000 mls/hr IV PRN PRN PRN Reason: Hypotension during Dialysis Stop: 09/16/18 12:16 Insulin Aspart (Novolog Vial Sliding Scale -) [facility]; Protocol Last Admin: 09/15/18 12:27 Dose: Not Given Labetalol HCl (Normodyne -) 300 mg PO TID [facility] Last Admin: 09/14/18 21:49 Dose: 300 mg Ondansetron HCl (Zofran Injection) 4 mg IVPUSH Q6H PRN PRN Reason: NAUSEA AND/OR VOMITING Promethazine HCl (Phenergan Injection -) 12.5 mg IVPUSH Q6H PRN PRN Reason: NAUSEA-FOR RESCUE AFTER 15 MIN Senna (Senna -) 2 tab PO [facility] Last Admin: 09/14/18 21:49 Dose: 2 tab Sevelamer Carbonate ([facility]vela -) [facility] Last Admin: 09/15/18 12:27 Dose: Not Given Simethicone (Mylicon -) 80 mg PO QID PRN PRN Reason: GAS - Objective Vital Signs: Vital Signs Temperature 98.1 F 09/15/18 06:00 Pulse Rate 62 09/15/18 14:40 Respiratory Rate 18 09/15/18 14:40 Blood Pressure 163/77 09/15/18 14:40 O2 Sat by Pulse Oximetry (%) 99 09/14/18 21:00 Labs: CBC, BMP 09/15/18 06:30 09/15/18 06:30 INR, PTT INR 1.10 (0.83-1.09) H 09/13/18 11:30
--- NOTE | 2018-09-15 18:11 | PN ---
Progress Note, Physician Chief Complaint: Ms Crain is without complaint. No cp, sob, n/v. No pain in her foot. - Current Medication List Current Medications: Active Medications Acetaminophen (Tylenol -) 650 mg PO Q6H PRN PRN Reason: PAIN LEVEL 1-5 Last Admin: 09/15/18 17:51 Dose: 650 mg Amlodipine Besylate (Norvasc -) 10 mg PO DAILY [facility] Last Admin: 09/15/18 09:52 Dose: Not Given Atorvastatin Calcium (Lipitor -) 10 mg PO HS [facility] Last Admin: 09/14/18 21:50 Dose: 10 mg Calcium Acetate (Phoslo -) 667 mg PO TIDCM [facility] Last Admin: 09/15/18 17:52 Dose: 667 mg Docusate Sodium (Colace -) 100 mg PO TID [facility] Last Admin: 09/15/18 15:37 Dose: 100 mg Sodium Chloride (Normal Saline -) 250 mls @ 3,000 mls/hr IV PRN PRN PRN Reason: Hypotension during Dialysis Sodium Chloride (Normal Saline -) 250 mls @ 3,000 mls/hr IV PRN PRN PRN Reason: Hypotension during Dialysis Stop: 09/16/18 12:16 Insulin Aspart (Novolog Vial Sliding Scale -) 1 vial SQ [facility]; Protocol Last Admin: 09/15/18 16:39 Dose: Not Given Labetalol HCl (Normodyne -) 300 mg PO TID [facility] Last Admin: 09/15/18 15:36 Dose: 300 mg Ondansetron HCl (Zofran Injection) 4 mg IVPUSH Q6H PRN PRN Reason: NAUSEA AND/OR VOMITING Promethazine HCl (Phenergan Injection -) 12.5 mg IVPUSH Q6H PRN PRN Reason: NAUSEA-FOR RESCUE AFTER 15 MIN Senna (Senna -) 2 tab PO HS [facility] Last Admin: 09/14/18 21:49 Dose: 2 tab Sevelamer Carbonate (Renvela -) 800 mg PO TIDCM [facility] Last Admin: 09/15/18 17:52 Dose: 800 mg Simethicone (Mylicon -) 80 mg PO QID PRN PRN Reason: GAS - Objective Vital Signs: Vital Signs Temperature 36.7 C 09/15/18 15:30 Pulse Rate 62 02/09/19 15:30 Respiratory Rate 18 09/15/18 15:30 Blood Pressure 163/67 09/15/18 15:30 O2 Sat by Pulse Oximetry (%) 99 09/14/18 21:00 Constitutional: Yes: Well Nourished, No Distress, Calm Cardiovascular: Yes: Regular Rate and Rhythm. No: Gallop, Murmur, Rub Respiratory: Yes: Regular, CTA Bilaterally. No: Rales, Rhonchi, Wheezes Gastrointestinal: Yes: Normal Bowel Sounds, Soft. 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 -antibx per ID -management per podiatry Code(s): T14.8XXA - OTHER INJURY OF UNSPECIFIED BODY REGION, INITIAL ENCOUNTER; L08.9 - LOCAL INFECTION OF THE SKIN AND SUBCUTANEOUS TISSUE, UNSP (2) ESRD (end stage renal disease) on dialysis Assessment/Plan: -tolerated HD today Code(s): N18.6 - END STAGE RENAL DISEASE; Z99.2 - DEPENDENCE ON RENAL DIALYSIS (3) Calciphylaxis Assessment/Plan: -chronic -nephrology following Code(s): E83.59 - OTHER DISORDERS OF CALCIUM METABOLISM (4) Hypertension Assessment/Plan: -controlled -continue amlodipine, labetalol Code(s): I10 - ESSENTIAL (PRIMARY) HYPERTENSION Qualifiers: Hypertension type: essential hypertension Qualified Code(s): I10 - Essential (primary) hypertension (5) Diabetes Assessment/Plan: -FSBS and SSI -diabetic diet Code(s): E11.9 - TYPE 2 DIABETES MELLITUS WITHOUT COMPLICATIONS Qualifiers: Diabetes mellitus type: type 2 Diabetes mellitus senior care insulin use: without senior care use Diabetes mellitus complication status: with kidney complications Diabetes mellitus complication detail: with chronic kidney disease Chronic kidney disease stage: on chronic dialysis Qualified Code(s) : E11.22 - Type 2 diabetes mellitus with diabetic chronic kidney disease; N18.6 - End stage renal disease; Z99.2 - Dependence on renal dialysis (6) Hyperlipidemia Assessment/Plan: -stable -continue statin Code(s): E78.5 - HYPERLIPIDEMIA, UNSPECIFIED Qualifiers: Hyperlipidemia type: pure hypercholesterolemia Qualified Code(s): E78.00 - Pure hypercholesterolemia, unspecified; E78.0 - Pure hypercholesterolemia (7) GERD (gastroesophageal reflux disease) Assessment/Plan: -stable Code(s): K21.9 - GASTRO-ESOPHAGEAL REFLUX DISEASE WITHOUT ESOPHAGITIS Qualifiers: Esophagitis presence: without esophagitis Qualified Code(s): K21.9 - Gastro -esophageal reflux disease without esophagitis
[2018-09-15] MEDS: SENNOSIDES 8.6MG TABLET (FP) PO SCH (22:55)
[2018-09-15] MEDS: ATORVASTATIN CA 10 MG TABLET (FP) PO SCH (22:56)
[2018-09-16] MEDS: INSULIN SLIDING SCALE (NOVOLOG) 1 VIAL SQ SCH ×4 (06:04→21:57)
[2018-09-16] MEDS: LABETALOL HCL 100 MG TABLET (FP) PO SCH ×3 (06:05→21:56)
[2018-09-16] MEDS: DOCUSATE SODIUM 100 MG CAPSULE (FP) PO SCH ×3 (06:05→21:56)
--- NOTE | 2018-09-16 08:12 | PN ---
Progress Note (short form) - Note Progress Note: pod #1. patient seen in am yesterday. mild pain. vss, tmax 98.0 +clean dry dressing, +intact, no growth wound culture from OR, wbc 5.5 normal post op remove dressing today and will pull packing. rest of tx as per team. abx as per ID. will follow.
[2018-09-16] MEDS: CALCIUM ACETATE 667 MG CAPSULE (FP) PO SCH ×3 (08:21→17:39)
[2018-09-16] MEDS: SEVELAMER CARBONATE 800 MG TAB (FP) PO SCH ×3 (08:21→17:39)
[2018-09-16] MEDS: ACETAMINOPHEN 325 MG TABLET (FP) PO PRN (11:23)
[2018-09-16] MEDS: amLODIPine BESYLATE 10 MG TABLET (FP) PO SCH (11:37)
--- NOTE | 2018-09-16 12:54 | PN ---
Progress Note, Physician Chief Complaint: Ms Crain is without complaint. No cp, sob, n/v. No pain in her foot. - Current Medication List Current Medications: Active Medications Acetaminophen (Tylenol -) 650 mg PO Q6H PRN PRN Reason: PAIN LEVEL 1-5 Last Admin: 09/16/18 11:23 Dose: 650 mg Amlodipine Besylate (Norvasc -) 10 mg PO DAILY [facility] Last Admin: 09/16/18 11:37 Dose: 10 mg Atorvastatin Calcium (Lipitor -) 10 mg PO HS [facility] Last Admin: 09/15/18 22:56 Dose: 10 mg Calcium Acetate (Phoslo -) 667 mg PO TIDCM [facility] Last Admin: 09/16/18 12:15 Dose: 667 mg Docusate Sodium (Colace -) 100 mg PO TID [facility] Last Admin: 09/16/18 06:05 Dose: 100 mg Sodium Chloride (Normal Saline -) 250 mls @ 3,000 mls/hr IV PRN PRN PRN Reason: Hypotension during Dialysis Insulin Aspart (Novolog Vial Sliding Scale -) 1 vial SQ [facility]; Protocol Last Admin: 09/16/18 11:45 Dose: Not Given Labetalol HCl (Normodyne -) 300 mg PO TID [facility] Last Admin: 09/16/18 06:05 Dose: 300 mg Ondansetron HCl (Zofran Injection) 4 mg IVPUSH Q6H PRN PRN Reason: NAUSEA AND/OR VOMITING Promethazine HCl (Phenergan Injection -) 12.5 mg IVPUSH Q6H PRN PRN Reason: NAUSEA-FOR RESCUE AFTER 15 MIN Senna (Senna -) 2 tab PO [facility] Last Admin: 09/15/18 22:55 Dose: 2 tab Sevelamer Carbonate (Renvela -) 800 mg PO TIDCM [facility] Last Admin: 09/16/18 12:15 Dose: 800 mg Simethicone (Mylicon -) 80 mg PO QID PRN PRN Reason: GAS - Objective Vital Signs: Vital Signs Temperature 37.1 C 09/16/18 09:37 Pulse Rate 72 09/16/18 09:37 Respiratory Rate 18 09/16/18 09:37 Blood Pressure 138/70 09/16/18 09:37 O2 Sat by Pulse Oximetry (%) 97 09/15/18 21:00 Constitutional: Yes: Well Nourished, No Distress, Calm Cardiovascular: Yes: Regular Rate and Rhythm. No: Gallop, Murmur, Rub Respiratory: Yes: Regular, CTA Bilaterally. No: Rales, Rhonchi, Wheezes Gastrointestinal: Yes: Normal Bowel Sounds, Soft. 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 -finished full course antibiotics -if stable, d/c tomorrow back to [facility] Code(s): T14.8XXA - OTHER INJURY OF UNSPECIFIED BODY REGION, INITIAL ENCOUNTER; L08.9 - LOCAL INFECTION OF THE SKIN AND SUBCUTANEOUS TISSUE, UNSP (2) ESRD (end stage renal disease) on dialysis Assessment/Plan: -nephrology following Code(s): N18.6 - END STAGE RENAL DISEASE; Z99.2 - DEPENDENCE ON RENAL DIALYSIS (3) Calciphylaxis Assessment/Plan: -chronic -nephrology following Code(s): E83.59 - OTHER DISORDERS OF CALCIUM METABOLISM (4) Hypertension Assessment/Plan: -controlled -continue amlodipine, labetalol Code(s): I10 - ESSENTIAL (PRIMARY) HYPERTENSION Qualifiers: Hypertension type: essential hypertension Qualified Code(s): I10 - Essential (primary) hypertension (5) Diabetes Assessment/Plan: -FSBS and SSI -diabetic diet Code(s): E11.9 - TYPE 2 DIABETES MELLITUS WITHOUT COMPLICATIONS Qualifiers: Diabetes mellitus type: type 2 Diabetes mellitus fdc insulin use: without information technology specialist use Diabetes mellitus complication status: with kidney complications Diabetes mellitus complication detail: with chronic kidney disease Chronic kidney disease stage: on chronic dialysis Qualified Code(s) : E11.22 - Type 2 diabetes mellitus with diabetic chronic kidney disease; N18.6 - End stage renal disease; Z99.2 - Dependence on renal dialysis (6) Hyperlipidemia Assessment/Plan: -stable -continue statin Code(s): E78.5 - HYPERLIPIDEMIA, UNSPECIFIED Qualifiers: Hyperlipidemia type: pure hypercholesterolemia Qualified Code(s): E78.00 - Pure hypercholesterolemia, unspecified; E78.0 - Pure hypercholesterolemia (7) GERD (gastroesophageal reflux disease) Assessment/Plan: -stable Code(s): K21.9 - GASTRO-ESOPHAGEAL REFLUX DISEASE WITHOUT ESOPHAGITIS Qualifiers: Esophagitis presence: without esophagitis Qualified Code(s): K21.9 - Gastro -esophageal reflux disease without esophagitis
--- NOTE | 2018-09-16 13:10 | PN ---
Progress Note, Physician History of Present Illness: stable no new issues - Current Medication List Current Medications: Active Medications Acetaminophen (Tylenol -) 650 mg PO Q6H PRN PRN Reason: PAIN LEVEL 1-5 Last Admin: 09/16/18 11:23 Dose: 650 mg Amlodipine Besylate (Norvasc -) 10 mg PO DAILY [facility] Last Admin: 09/16/18 11:37 Dose: 10 mg Atorvastatin Calcium (Lipitor -) 10 mg PO [facility] Last Admin: 09/15/18 22:56 Dose: 10 mg Calcium Acetate (Phoslo -) 667 mg PO TIDCM [facility] Last Admin: 09/16/18 12:15 Dose: 667 mg Docusate Sodium (Colace -) 100 mg PO TID [facility] Last Admin: 09/16/18 06:05 Dose: 100 mg Sodium Chloride (Normal Saline -) 250 mls @ 3,000 mls/hr IV PRN PRN PRN Reason: Hypotension during Dialysis Insulin Aspart (Novolog Vial Sliding Scale -) 1 vial SQ [facility]; Protocol Last Admin: 09/16/18 11:45 Dose: Not Given Labetalol HCl (Normodyne -) 300 mg PO TID [facility] Last Admin: 09/16/18 06:05 Dose: 300 mg Ondansetron HCl (Zofran Injection) 4 mg IVPUSH Q6H PRN PRN Reason: NAUSEA AND/OR VOMITING Promethazine HCl (Phenergan Injection -) 12.5 mg IVPUSH Q6H PRN PRN Reason: NAUSEA-FOR RESCUE AFTER 15 MIN Senna (Senna -) 2 tab PO [facility] Last Admin: 09/15/18 22:55 Dose: 2 tab Sevelamer Carbonate (Renvela -) 800 [facility] Last Admin: 09/16/18 12:15 Dose: 800 mg Simethicone (Mylicon -) 80 mg PO QID PRN PRN Reason: GAS - Objective Vital Signs: Vital Signs Temperature 98.7 F 09/16/18 09:37 Pulse Rate 72 09/16/18 09:37 Respiratory Rate 18 09/16/18 09:37 Blood Pressure 138/70 09/16/18 09:37 O2 Sat by Pulse Oximetry (%) 97 09/15/18 21:00 Constitutional: Yes: No Distress, Calm Cardiovascular: Yes: S1, S2 Respiratory: Yes: Regular, CTA Bilaterally Gastrointestinal: Yes: Normal Bowel Sounds, Soft Musculoskeletal: Yes: WNL Extremities: Yes: Other Neurological: Yes: Alert, Oriented Psychiatric: Yes: Alert, Oriented Labs: CBC, BMP 09/15/18 06:30 09/15/18 06:30 INR, PTT INR 1.10 (0.83-1.09) H 09/13/18 11:30 Assessment/Plan Problem List - Problems (1) Gangrene Code(s): I96 - GANGRENE, NOT ELSEWHERE CLASSIFIED (2) ESRD (end stage renal disease) on dialysis Code(s): N18.6 - END STAGE RENAL DISEASE; Z99.2 - DEPENDENCE ON RENAL DIALYSIS (3) Calciphylaxis Code(s): E83.59 - OTHER DISORDERS OF CALCIUM METABOLISM (4) Hypertension Code(s): I10 - ESSENTIAL (PRIMARY) HYPERTENSION Qualifiers: Hypertension type: essential hypertension Qualified Code(s): I10 - Essential (primary) hypertension (5) Diabetes Code(s): E11.9 - TYPE 2 DIABETES MELLITUS WITHOUT COMPLICATIONS Qualifiers: Diabetes mellitus type: type 2 Diabetes mellitus moth exterminator insulin use: without longterm use Diabetes mellitus complication status: with kidney complications Diabetes mellitus complication detail: with chronic kidney disease Chronic kidney disease stage: on chronic dialysis Qualified Code(s) : E11.22 - Type 2 diabetes mellitus with diabetic chronic kidney disease; N18.6 - End stage renal disease; Z99.2 - Dependence on renal dialysis (6) Hyperlipidemia Code(s): E78.5 - HYPERLIPIDEMIA, UNSPECIFIED Qualifiers: Hyperlipidemia type: pure hypercholesterolemia Qualified Code(s): E78.00 - Pure hypercholesterolemia, unspecified; E78.0 - Pure hypercholesterolemia (7) GERD (gastroesophageal reflux disease) Code(s): K21.9 - GASTRO-ESOPHAGEAL REFLUX DISEASE WITHOUT ESOPHAGITIS Qualifiers: Esophagitis presence: without esophagitis Qualified Code(s): K21.9 - Gastro -esophageal reflux disease without esophagitis plan wound care rest as per the team as per vascular patient doing well
--- NOTE | 2018-09-16 13:31 | PN ---
Progress Note (short form) - Note Progress Note: pod #2. no pain. vss, tmax 98.0 +clean dry dressing, +intact, no growth wound culture from OR, wbc 5.5 normal post op Removed packing and dressing. Re-applied betadine dressing. Will follow. Abx as per ID.
[2018-09-16] MEDS: ATORVASTATIN CA 10 MG TABLET (FP) PO SCH (21:56)
[2018-09-16] MEDS: SENNOSIDES 8.6MG TABLET (FP) PO SCH (21:57)
[2018-09-17] MEDS: DOCUSATE SODIUM 100 MG CAPSULE (FP) PO SCH ×2 (05:44→14:58)
[2018-09-17] MEDS: LABETALOL HCL 100 MG TABLET (FP) PO SCH ×2 (05:44→14:59)
[2018-09-17] MEDS: ACETAMINOPHEN 325 MG TABLET (FP) PO PRN ×2 (05:44→12:07)
[2018-09-17] MEDS: INSULIN SLIDING SCALE (NOVOLOG) 1 VIAL SQ SCH ×3 (07:05→17:14)
[2018-09-17 09:01] LABS: BASO % 0.8 % (0-2.0); EOS % 2.7 % (0-4.5); HEMATOCRIT 31.9 % (32.4-45.2); HEMOGLOBIN 10.6 GM/dL (10.7-15.3); LYMPH % 26.3 % (8-40); MCH 30.7 pg (25.7-33.7); MCHC 33.4 g/dl (32.0-36.0); MEAN PLT VOLUME 8.5 fl (7.5-11.1); MONO % 11.5 % (3.8-10.2); NEUT % 58.7 % (42.8-82.8); PLATELET COUNT 163 K/MM3 (134-434); RBC 3.46 M/mm3 (3.60-5.2); RDW 17.4 % (11.6-15.6); WHITE BLOOD COUNT 5.7 K/mm3 (4.0-10.0)
[2018-09-17] MEDS ORDERED: PT OWN MED DRAWER 7, Y5N ONE (09:08)
[2018-09-17] MEDS: CALCIUM ACETATE 667 MG CAPSULE (FP) PO SCH ×2 (09:26→12:07)
[2018-09-17] MEDS: amLODIPine BESYLATE 10 MG TABLET (FP) PO SCH (09:26)
[2018-09-17] MEDS: SEVELAMER CARBONATE 800 MG TAB (FP) PO SCH ×2 (09:26→12:07)
[2018-09-17 09:40] LABS: ANION GAP 9 MMOL/L (8-16); BLOOD UREA NITROGEN 26 mg/dL (7-18); CALCIUM 9.1 mg/dL (8.5-10.1); CHLORIDE 96 mmol/L (98-107); CO2 29 mmol/L (21-32); CREATININE 4.2 mg/dL (0.55-1.3); GLUCOSE,RANDOM 85 mg/dL (74-106); PHOSPHOROUS 2.7 mg/dL (2.5-4.9); POTASSIUM 4.1 mmol/L (3.5-5.1); SODIUM 134 mmol/L (136-145)
[2018-09-17 10:09] VITALS: TEMP 98.2
--- NOTE | 2018-09-17 13:43 | PN ---
Progress Note, Physician Chief Complaint: Pt lying in bed in no acute distress. reports feeling well.Denies any chest pain , sob, n/v/d - Current Medication List Current Medications: Active Medications Acetaminophen (Tylenol -) 650 mg PO Q6H PRN PRN Reason: PAIN LEVEL 1-5 Last Admin: 09/17/18 12:07 Dose: 650 mg Amlodipine Besylate (Norvasc -) 10 mg PO DAILY [facility] Last Admin: 09/17/18 09:26 Dose: 10 mg Atorvastatin Calcium (Lipitor -) 10 mg PO HS [facility] Last Admin: 09/16/18 21:56 Dose: 10 mg Calcium Acetate (Phoslo -) 667 mg PO TIDCM [facility] Last Admin: 09/17/18 12:07 Dose: 667 mg Docusate Sodium (Colace -) 100 mg PO TID [facility] Last Admin: 09/17/18 05:44 Dose: 100 mg Heparin Sodium (Porcine) (Heparin -) 5,000 unit SQ TID [facility] Sodium Chloride (Normal Saline -) 250 mls @ 3,000 mls/hr IV PRN PRN PRN Reason: Hypotension during Dialysis Insulin Aspart (Novolog Vial Sliding Scale -) 1 vial SQ [facility]; Protocol Last Admin: 09/17/18 12:07 Dose: Not Given Labetalol HCl (Normodyne -) 300 mg PO TID [facility] Last Admin: 09/17/18 05:44 Dose: 300 mg Ondansetron HCl (Zofran Injection) 4 mg IVPUSH Q6H PRN PRN Reason: NAUSEA AND/OR VOMITING Promethazine HCl (Phenergan Injection -) 12.5 mg IVPUSH Q6H PRN PRN Reason: NAUSEA-FOR RESCUE AFTER 15 MIN Senna (Senna -) 2 tab PO HS [facility] Last Admin: 09/16/18 21:57 Dose: 2 tab Sevelamer Carbonate (Renvela -) 800 mg PO TIDCM [facility] Last Admin: 09/17/18 12:07 Dose: 800 mg Simethicone (Mylicon -) 80 mg PO QID PRN PRN Reason: GAS - Objective Vital Signs: Vital Signs Temperature 98.2 F 09/17/18 09:00 Pulse Rate 69 09/17/18 09:00 Respiratory Rate 20 09/17/18 09:00 Blood Pressure 116/57 L 09/17/18 09:00 O2 Sat by Pulse Oximetry (%) 97 09/16/18 21:00 Constitutional: Yes: Well Nourished, No Distress, Calm Cardiovascular: Yes: Regular Rate and Rhythm, Murmur Respiratory: Yes: WNL, Regular, CTA Bilaterally. No: Accessory Muscle Use, Tachypnea, Wheezes Gastrointestinal: Yes: WNL, Normal Bowel Sounds. No: Distention, Tenderness Genitourinary: Yes: WNL Wound/Incision: Yes: Dressing Dry and Intact Neurological: Yes: WNL, Alert, Oriented Psychiatric: Yes: WNL, Alert, Oriented Labs: CBC, BMP 09/17/18 08:30 09/17/18 08:30 INR, PTT INR 1.10 (0.83-1.09) H 09/13/18 11:30 Assessment/Plan (1) Wound infection Assessment/Plan: s/p anterior tibial angioplasty, debridement, amputation of left 1st/2nd digit completed antibx course all cultures negative Code(s): T14.8XXA - OTHER INJURY OF UNSPECIFIED BODY REGION, INITIAL ENCOUNTER; L08.9 - LOCAL INFECTION OF THE SKIN AND SUBCUTANEOUS TISSUE, UNSP (2) ESRD (end stage renal disease) on dialysis Assessment/Plan: nephrology following Code(s): N18.6 - END STAGE RENAL DISEASE; Z99.2 - DEPENDENCE ON RENAL DIALYSIS (3) Calciphylaxis Assessment/Plan: chronic nephrology following Code(s): E83.59 - OTHER DISORDERS OF CALCIUM METABOLISM (4) Hypertension Assessment/Plan: controlled continue amlodipine, labetalol Code(s): I10 - ESSENTIAL (PRIMARY) HYPERTENSION Qualifiers: Hypertension type: essential hypertension Qualified Code(s): I10 - Essential (primary) hypertension (5) Diabetes Assessment/Plan: BGM diabetic diet Code(s): E11.9 - TYPE 2 DIABETES MELLITUS WITHOUT COMPLICATIONS Qualifiers: Diabetes mellitus type: type 2 Diabetes mellitus retrimmer insulin use: without retrimmer use Diabetes mellitus complication status: with kidney complications Diabetes mellitus complication detail: with chronic kidney disease Chronic kidney disease stage: on chronic dialysis Qualified Code(s) : E11.22 - Type 2 diabetes mellitus with diabetic chronic kidney disease; N18.6 - End stage renal disease; Z99.2 - Dependence on renal dialysis (6) Hyperlipidemia Assessment/Plan: stable continue statin Code(s): E78.5 - HYPERLIPIDEMIA, UNSPECIFIED Qualifiers: Hyperlipidemia type: pure hypercholesterolemia Qualified Code(s): E78.00 - Pure hypercholesterolemia, unspecified; E78.0 - Pure hypercholesterolemia (7) GERD (gastroesophageal reflux disease) Assessment/Plan: stable Code(s): K21.9 - GASTRO-ESOPHAGEAL REFLUX DISEASE WITHOUT ESOPHAGITIS Qualifiers: Esophagitis presence: without esophagitis Qualified Code(s): K21.9 - Gastro -esophageal reflux disease without esophagitis Dispo: SNF, pending podiatry clearance and discharge teaching on wound care/ followup
[2018-09-17] MEDS ORDERED: HEPARIN NA (PORCINE) 5,000 UNITS/ML 1ML VIAL SQ SCH (14:00)
--- NOTE | 2018-09-17 14:11 | PN ---
Progress Note, Physician - Current Medication List Current Medications: Active Medications Acetaminophen (Tylenol -) 650 mg PO Q6H PRN PRN Reason: PAIN LEVEL 1-5 Last Admin: 09/17/18 12:07 Dose: 650 mg Amlodipine Besylate (Norvasc -) 10 mg PO DAILY [facility] Last Admin: 09/17/18 09:26 Dose: 10 mg Atorvastatin Calcium (Lipitor -) 10 mg PO [facility] Last Admin: 09/16/18 21:56 Dose: 10 mg Calcium Acetate (Phoslo -) 667 mg PO TIDCM [facility] Last Admin: 09/17/18 12:07 Dose: 667 mg Docusate Sodium (Colace -) 100 mg PO TID [facility] Last Admin: 09/17/18 05:44 Dose: 100 mg Heparin Sodium (Porcine) (Heparin -) 5,000 unit SQ TID [facility] Sodium Chloride (Normal Saline -) 250 mls @ 3,000 mls/hr IV PRN PRN PRN Reason: Hypotension during Dialysis Insulin Aspart (Novolog Vial Sliding Scale -) 1 vial SQ [facility]; Protocol Last Admin: 09/17/18 12:07 Dose: Not Given Labetalol HCl (Normodyne -) 300 mg PO TID [facility] Last Admin: 09/17/18 05:44 Dose: 300 mg Ondansetron HCl (Zofran Injection) 4 mg IVPUSH Q6H PRN PRN Reason: NAUSEA AND/OR VOMITING Promethazine HCl (Phenergan Injection -) 12.5 mg IVPUSH Q6H PRN PRN Reason: NAUSEA-FOR RESCUE AFTER 15 MIN Senna (Senna -) 2 tab PO [facility] Last Admin: 09/16/18 21:57 Dose: 2 tab Sevelamer Carbonate (Renvela -) 800 mg PO TIDCM [facility] Last Admin: 09/17/18 12:07 Dose: 800 mg Simethicone (Mylicon -) 80 mg PO QID PRN PRN Reason: GAS - Objective Vital Signs: Vital Signs Temperature 98.2 F 09/17/18 09:00 Pulse Rate 69 09/17/18 09:00 Respiratory Rate 20 09/17/18 09:00 Blood Pressure 116/57 L 09/17/18 09:00 O2 Sat by Pulse Oximetry (%) 97 09/16/18 21:00 Labs: CBC, BMP 09/17/18 08:30 09/17/18 08:30 INR, PTT INR 1.10 (0.83-1.09) H 09/13/18 11:30
[2018-09-17 15:25] VITALS: BP 151/71; PULSE 67
--- NOTE | 2018-09-19 14:31 | PATH ---
Surgical Pathology Report Patient Name: REJI LY [facility]. Rec. #: [id number] /Age/Gender: 1940 (Age: 77) / F Account: [id number] Location: [address] [place] [address]/[facility] Taken: 09/14/2018 Received: 09/17/2018 Reported: 09/19/2018 Physicians: PATTIE Farah FNP Specimen(s) Received NECROTIC BONE/SOFT TISSUE Clinical History Gangrene Final Diagnosis NECROTIC BONE/SOFT TISSUE, TRANSMETATARSAL AMPUTATION: PORTION OF FOOT WITH MARKED ACUTE GANGRENOUS NECROSIS AND ULCERATION INVOLVING FIRST AND SECOND DIGITS AND ASSOCIATED SEVERE ACUTE OSTEOMYELITIS , FOCALLY EXTENDING TO SKIN/SOFT TISSUE MARGINS AND BONE MARGIN OF SECOND DIGIT. FOUR OF FIVE SEPARATELY RECEIVED BONE FRAGMENTS WITH FOCAL ACUTE AND CHRONIC OSTEOMYELITIS, BONE REMODELING, AND REACTIVE CHANGES. Electronically Signed Maria Elena Gonzalez M.D. Gross Description Received in formalin labeled "necrotic bone/soft tissue," is an 8.0 x 6.0 x 3.0 cm aggregate of multiple necrotic portions of skin, bone and soft tissue. The largest portion is consistent with a transmetatarsal amputation and displays 2 gangrenous digits, consistent with the hallux and second digit. There are 5 undesignated portions of bone separately received within the same container which appear to be metatarsals. Quality Compliance Manager sections are submitted in 9 cassettes as follows: 1-section of second digit lesion with underlying bone, following decalcification; 2-skin and soft tissue margin; 3-bone margin from hallux, following decalcification; 4-bone margin from second digit, following decalcification; [id number] from 5 separately received bone fragments, following decalcification. /09/17/2018 saudi09/17/2018
--- NOTE | 2018-09-20 15:39 | DS ---
Physical Examination Vital Signs: Vital Signs Temperature 98.2 F 09/17/18 15:22 Pulse Rate 67 09/17/18 15:22 Respiratory Rate 20 09/17/18 15:22 Blood Pressure 151/71 09/17/18 15:22 O2 Sat by Pulse Oximetry (%) 96 09/17/18 09:00 Labs: CBC, BMP 09/17/18 08:30 09/17/18 08:30 Discharge Summary Reason For Visit: GANGRENE Hospital Course: 77 year old female with PMH of ESRD on HD, NIDDM, HTN, HLD, recent transmetatarsal amputation of L foot 3rd 4th 5th digits on 08/03/18 presents with gangrenous changes to left 2nd digit. Pt underwent anterior tibial angioplasty, debridement, amputation of left 1st/2nd digit. Pt completed antibx and has been cleared by vascular/podiatry. Pt is medically stable for discharge , vitals/labs stable. Follow up as directed Condition: Stable - Instructions Diet, Activity, Other Instructions: pt/ diet as tolerated HD provide small snacks between meals to avoid hypoglycemia dressing change- daily betadine dressing change to left foot follow up Referrals: Gautam Driscoll MD [Primary Care Provider] - Remi Paul DPM [Staff Physician] - 2 Weeks Disposition: [facility]WAY FACILITY - Home Medications Comprehensive Discharge Medication List: Ambulatory Orders Amlodipine Besylate [Norvasc -] 10 mg PO DAILY 08/02/14 Atorvastatin Ca [Lipitor] 10 mg PO HS 03/29/17 Sevelamer Carbonate [Renvela -] 800 mg PO TID 03/29/17 Acetaminophen [Tylenol .Regular Strength -] 650 mg PO Q4H PRN tablet 08/06/18 Clopidogrel Bisulfate [Clopidogrel] 75 mg PO DAILY #30 tablet 08/06/18 Calcium Acetate [Phoslo -] 667 mg PO TID 08/23/18 Collagenase Clostridium Hist. [Santyl -] 1 applic TP DAILY 08/23/18 Ferrous Sulfate 325 mg PO DAILY 08/23/18 Labetalol HCl [Normodyne -] 300 mg PO TID tablet 09/17/18 Sennosides [Senna -] 2 tab PO HS tablet 09/17/18
--- NOTE | 2018-10-08 00:29 | OP ---
DATE OF OPERATION: 09/14/2018 SURGEON: Remi Paul DPM PREOPERATIVE DIAGNOSIS: Gangrene toes 1 and 2, gangrenous lateral aspect of the foot with dehiscence POSTOPERATIVE DIAGNOSIS: same SURGERY: Transmetatarsal amputation of 1 and 2, left foot. Revision of metatarsal bone 3, 4, and 5 left foot with harvesting of plantar flap. DESCRIPTION OF PROCEDURE: After noting all preoperative vital signs were within normal limit and after the surgical consent was signed and witnessed, the patient was brought to the OR and placed on the table in the supine position. Once the patient was on the table, the foot was prepped and draped in the usual sterile fashion. Prior to the prepping and draping, a local infiltrate was put in a Gutierrez block fashion around all 5 metatarsals. Attention was directed to the 1st and 2nd toes of the left foot where an incision was created over the metatarsophalangeal joint of both toes 1 and 2. This incision was deepened using sharp and blunt dissection to the level of the metatarsal heads. Both toes were resected and sent to pathology. All unavoidable vessels were ligated in the usual fashion. All other neurovascular structures were retracted out of the surgical site. At this time, it was noted that there were necrotic changes into the metatarsophalangeal joint. The metatarsal heads of 1 and 2 were inspected. They were noted to be soft with changes consistent with osteomyelitis and gangrenous tissue changes surrounding the area. Utilizing a sagittal saw, going from [id number] distal 1/3 of each metatarsal was resected after all soft tissue was liberated from the lateral, medial, dorsal, and plantar aspects of the metatarsal heads as well. Attention was then directed to the wound on the lateral aspect of the foot where the previous surgery had been done and dehiscence and necrosis had occurred. At this time, identification of metatarsal shafts 3, 4, 5 were done. Utilizing a sagittal saw, going from [id number], bone was resected approximately another third of the distal aspect of 3, 4, and 5. Once all bone had been resected, the wound was explored for any more remaining necrotic tissue or necrotic tendons. They were excised and sent down to Pathology. Both deep wound cultures and cultures of the superficial wounds were done and sent down to Pathology. A flush was then done with copious amounts of sterile saline with antibiotic added to it. Once the area was noted to be clean , the plantar flap was pulled up and re-approximated with the dorsal skin using retention sutures in a simple interrupted suture fashion after 0.25-inch plain iodoform packing had been put into place. Once this was done, Xeroform gauze, fluff dressing, and a combine were then applied. An Jonathan bandage was then applied. Patient returned to recovery room with vital signs stable and vascular status intact. PATTIE Farah/[id number] MTDD
== END 2018-09-17 17:38 | DRG 474 ==
LOC: JER 09:51 → JERBED 11:20 → J5S 14:43
PROVIDERS: ADMIT Hospitalist; ATTEND Nurse Practitioner Family
PROC: 5A1D70Z Performance of Urinary Filtration, Intermittent, Less than 6 Hours Per Day (ICD-10-PCS; 2018-09-08)
PROC: 047Q3Z1 Dilation of Left Anterior Tibial Artery using Drug-Coated Balloon, Percutaneous Approach (ICD-10-PCS; 2018-09-11)
PROC: B40DYZZ Plain Radiography of Aorta and Bilateral Lower Extremity Arteries using Other Contrast (ICD-10-PCS; 2018-09-11)
PROC: 0Y6N0ZB Detachment at Left Foot, Partial 2nd Ray, Open Approach (ICD-10-PCS; 2018-09-14)
PROC: 0SBN0ZZ Excision of Left Metatarsal-Phalangeal Joint, Open Approach (ICD-10-PCS; 2018-09-14)
PROC: 0QBR0ZZ Excision of Left Toe Phalanx, Open Approach (ICD-10-PCS; 2018-09-14)
PROC: 0Y6N0Z9 Detachment at Left Foot, Partial 1st Ray, Open Approach (ICD-10-PCS; principal; 2018-09-14 11:00)
DX: T87.44 Infection of amputation stump, left lower extremity (principal); N18.6 End stage renal disease; I96 Gangrene, not elsewhere classified; I12.0 Hypertensive chronic kidney disease with stage 5 chronic kidney disease or end stage renal disease; E11.52 Type 2 diabetes mellitus with diabetic peripheral angiopathy with gangrene; M86.172 Other acute osteomyelitis, left ankle and foot; M86.672 Other chronic osteomyelitis, left ankle and foot; E83.59 Other disorders of calcium metabolism; N25.0 Renal osteodystrophy; K21.9 Gastro-esophageal reflux disease without esophagitis; E78.5 Hyperlipidemia, unspecified; E11.22 Type 2 diabetes mellitus with diabetic chronic kidney disease; E11.69 Type 2 diabetes mellitus with other specified complication; Y83.9 Surgical procedure, unspecified as the cause of abnormal reaction of the patient, or of later complication, without mention of misadventure at the time of the procedure; Z99.2 Dependence on renal dialysis
CPT/HCPCS: 36415; 71045-TC-FY; 73630-TC-LT; 73700-TC-RT; 80048; 80053; 80074; 82565; 82962; 83605; 83735; 84100; 84520; 85025; 85610; 86803; 86850; 86900; 86901; 87040; 87070; 87205; 88307-TC; 88311-TC; 93005; 93010; 94760; 99283-25; G0463-25; G0480; J1644

== ENCOUNTER 2018-12-27 10:10 | Inpatient (IN) | payer OTHER ==
[2018-12-27 12:25] LABS: BASO % 0.4 % (0-2.0); EOS % 1.2 % (0-4.5); HEMATOCRIT 30.8 % (32.4-45.2); HEMOGLOBIN 10.1 GM/dL (10.7-15.3); LYMPH % 11.7 % (8-40); MCH 29.3 pg (25.7-33.7); MCHC 32.8 g/dl (32.0-36.0); MEAN CELL VOLUME 89.2 fl (80-96); MEAN PLT VOLUME 8.9 fl (7.5-11.1); MONO % 6.6 % (3.8-10.2); NEUT % 80.1 % (42.8-82.8); PLATELET COUNT 329 K/MM3 (134-434); RBC 3.46 M/mm3 (3.60-5.2); RDW 17.7 % (11.6-15.6); WHITE BLOOD COUNT 12.1 K/mm3 (4.0-10.0)
[2018-12-27 12:41] LABS: INR 1.13 (0.83-1.09); PROTHROMBIN TIME (PATIENT) 13.4 SEC (9.7-13.0)
--- NOTE | 2018-12-27 13:11 | EKG ---
Test Reason : Blood Pressure : / mmHG Vent. Rate : 061 BPM Atrial Rate : 061 BPM P-R Int : 192 ms QRS Dur : 084 ms QT Int : 452 ms P-R-T Axes : 043 -18 099 degrees QTc Int : 455 ms NORMAL SINUS RHYTHM MODERATE VOLTAGE CRITERIA FOR LVH, MAY BE NORMAL VARIANT CANNOT RULE OUT SEPTAL INFARCT (CITED ON OR BEFORE 12-AUG-2014) ABNORMAL ECG WHEN COMPARED WITH ECG OF 06-SEP-2018 10:27, PREMATURE ATRIAL COMPLEXES ARE NO LONGER PRESENT Confirmed by ALVARO MOULTON MD ([id number]) on 12/27/2018 1:10:49 PM Referred By: Confirmed By:ALVARO MOULTON MD
[2018-12-27] MEDS ORDERED: VANCOMYCIN 1,000 MG in DEXTROSE 5%-WATER - 250 ML IVPB ONE (13:14)
[2018-12-27] MEDS ORDERED: CEFTRIAXONE 1 GM in DEXTROSE 5%-WATER - 50 ML IVPB ONE (13:14)
[2018-12-27 13:41] LABS: ANISOCYTOSIS 0; MACROCYTOSIS 0; PLATELET ESTIMATE NORMAL
[2018-12-27 13:56] LABS: ALBUMIN 2.5 g/dl (3.4-5.0); BILIRUBIN,TOTAL 1.4 mg/dL (0.2-1); CALCIUM 9.3 mg/dL (8.5-10.1); CREATININE 4.1 mg/dL (0.55-1.3); POTASSIUM 3.6 mmol/L (3.5-5.1); TOT PROT 7.1 g/dl (6.4-8.2)
[2018-12-27] MEDS ORDERED: VANCOMYCIN 1 GRAM (PRE-DOCKED) 1,000 MG/250 ML BAG IVPB ONE (13:58)
[2018-12-27] MEDS ORDERED: CEFTRIAXONE 1 GM/50 ML BAG ONE (13:58)
--- NOTE | 2018-12-27 15:24 | HP ---
CHIEF COMPLAINT: foul smell form wound on left foot with discharge PCP: dr driscoll HISTORY OF PRESENT ILLNESS: The patient is a 78 year old female, with a significant past medical history of ESRD (T,Th,S), HTN, HLD, PVD (s/p amputation of L toes), who presents to the emergency department with, itchy left heel wound. As per patient, she was at wound care today with Dr. Paul and was advised to report to the ED for further evaluation and admission secondary to worsening wound with foul-smelling purulent discharge. She denies any pain to the wound. She denies recent fevers, chills, headache or dizziness. She denies recent nausea, vomit, diarrhea or constipation. She denies recent dysuria, frequency, urgency or hematuria. She denies recent chest pain or shortness of breath. Primary Care Physician: Dr. Driscoll Dictionary Editor/Wound Care: Dr. Paul ER course was notable for: (1)cbc, cmp, pt/inr (2)x ray (3) Recent Travel: no PAST MEDICAL HISTORY: as above PAST SURGICAL HISTORY: AV Fistula/Graft, Hysterectomy, Joint Replacement (R knee ), Oopherectomy, transmetatarsal amputaion of let foot toes, angioplasty left tibial artery. Flap closure Social History: Smoking: no Alcohol:no Drugs: no Family History: not relevent Allergies No Known Drug Allergies Allergy (Verified 09/06/18 10:08) HOME MEDICATIONS: Home Medications Medication Instructions Recorded Amlodipine Besylate [Norvasc -] 10 mg PO DAILY 08/02/14 Atorvastatin Ca [Lipitor] 10 mg PO HS 03/29/17 Sevelamer Carbonate [Renvela -] 800 mg PO TID 03/29/17 Acetaminophen [Tylenol .Regular 650 mg PO Q4H PRN tablet 08/06/18 Strength -] Clopidogrel Bisulfate [Clopidogrel] 75 mg PO DAILY #30 tablet 08/06/18 Calcium Acetate [Phoslo -] 667 mg PO TID 08/23/18 Ferrous Sulfate 325 mg PO DAILY 08/23/18 Labetalol HCl [Normodyne -] 300 mg PO TID tablet 09/17/18 Sennosides [Senna -] 2 tab PO HS tablet 09/17/18 REVIEW OF SYSTEMS CONSTITUTIONAL: Absent: fever, chills, diaphoresis, generalized weakness, malaise, loss of appetite, weight change HEENT: Absent: rhinorrhea, nasal congestion, throat pain, throat swelling, difficulty swallowing, mouth swelling, ear pain, eye pain, visual changes CARDIOVASCULAR: Absent: chest pain, syncope, palpitations, irregular heart rate, lightheadedness , peripheral edema RESPIRATORY: Absent: cough, shortness of breath, dyspnea with exertion, orthopnea, wheezing, stridor, hemoptysis GASTROINTESTINAL: Absent: abdominal pain, abdominal distension, nausea, vomiting, diarrhea, constipation, melena, hematochezia GENITOURINARY: Absent: dysuria, frequency, urgency, hesitancy, hematuria, flank pain, genital pain MUSCULOSKELETAL: Absent: myalgia, arthralgia, joint swelling, back pain, neck pain SKIN: Absent: rash, itching, pallor HEMATOLOGIC/IMMUNOLOGIC: Absent: easy bleeding, easy bruising, lymphadenopathy, frequent infections ENDOCRINE: Absent: unexplained weight gain, unexplained weight loss, heat intolerance, cold intolerance NEUROLOGIC: Absent: headache, focal weakness or paresthesias, dizziness, unsteady gait, seizure, mental status changes, bladder or bowel incontinence PSYCHIATRIC: Absent: anxiety, depression, suicidal or homicidal ideation, hallucinations. PHYSICAL EXAMINATION Vital Signs - 24 hr 12/27/18 10:15 Temperature 97.4 F L Pulse Rate 73 Respiratory 17 Rate Blood Pressure 114/53 L O2 Sat by Pulse 99 Oximetry (%) GENERAL: Awake, alert, and fully oriented, in no acute distress. HEAD: Normal with no signs of trauma. EARS, NOSE, THROAT: moist mucous membranes. NECK: Normal range of motion, supple without lymphadenopathy, JVD, or masses. LUNGS: Breath sounds equal, clear to auscultation bilaterally. No wheezes, and no crackles. No accessory muscle use. HEART: Regular rate and rhythm, normal S1 and S2 ABDOMEN: Soft, nontender, not distended, normoactive bowel sounds, no guarding, no rebound, no masses. . UPPER EXTREMITIES: 2+ pulses, warm, well-perfused. LOWER EXTREMITIES:R foot pulses palpable, senation to touch intact. Left amputation of transmetatarsal with flap closure with granulation and some slough , foul smell present, no discharge from dorsa wound, Heel of left foot appears necrotic, with opening having purulent discharge, foul sell. PSYCHIATRIC: Cooperative. Good eye contact. SKIN: Warm, dry, Laboratory Results - last 24 hr 12/27/18 12/27/18 12/27/18 12:00 12:00 12:00 WBC 12.1 H RBC 3.46 L Hgb 10.1 L Hct 30.8 L MCV 89.2 MCH 29.3 MCHC 32.8 RDW 17.7 H Plt Count 329 D MPV 8.9 Absolute Neuts (auto) 9.7 H Neutrophils % 80.1 D Neutrophils % (Manual) 81.6 Band Neutrophils % 0.0 Lymphocytes % 11.7 D Lymphocytes % (Manual) 10.2 Monocytes % 6.6 Monocytes % (Manual) 6 Eosinophils % 1.2 Eosinophils % (Manual) 2.1 Basophils % 0.4 Basophils % (Manual) 0.0 Myelocytes % (Man) 0 Promyelocytes % (Man) 0 Blast Cells % (Manual) 0 Nucleated RBC % 0 Metamyelocytes 0 Hypochromia 0 Platelet Estimate Normal Polychromasia 0 Poikilocytosis 0 Anisocytosis 0 Microcytosis 0 Macrocytosis 0 ESR PT with INR INR Sodium Cancelled Potassium Cancelled Chloride Cancelled Carbon Dioxide Cancelled Anion Gap Cancelled BUN Cancelled Creatinine Cancelled Est GFR (CKD-EPI)AfAm Cancelled Est GFR (CKD-EPI)NonAf Cancelled Random Glucose Cancelled Lactic Acid Calcium Cancelled Total Bilirubin Cancelled AST Cancelled ALT Cancelled Alkaline Phosphatase Cancelled Creatine Kinase Cancelled Troponin I Cancelled C-Reactive Protein Total Protein Cancelled Albumin Cancelled Blood Type Cancelled Antibody Screen Cancelled 12/27/18 12/27/18 12/27/18 12:00 12:00 12:00 WBC RBC Hgb Hct MCV MCH MCHC RDW Plt Count MPV Absolute Neuts (auto) Neutrophils % Neutrophils % (Manual) Band Neutrophils % Lymphocytes % Lymphocytes % (Manual) Monocytes % Monocytes % (Manual) Eosinophils % Eosinophils % (Manual) Basophils % Basophils % (Manual) Myelocytes % (Man) Promyelocytes % (Man) Blast Cells % (Manual) Nucleated RBC % Metamyelocytes Hypochromia Platelet Estimate Polychromasia Poikilocytosis Anisocytosis Microcytosis Macrocytosis ESR 54 H PT with INR 13.40 H INR 1.13 H Sodium Potassium Chloride Carbon Dioxide Anion Gap BUN Creatinine Est GFR (CKD-EPI)AfAm Est GFR (CKD-EPI)NonAf Random Glucose Lactic Acid Calcium Total Bilirubin AST ALT Alkaline Phosphatase Creatine Kinase Troponin I C-Reactive Protein 16.0 H Total Protein Albumin Blood Type Antibody Screen 12/27/18 12/27/18 12/27/18 12:00 13:09 13:09 WBC RBC Hgb Hct MCV MCH MCHC RDW Plt Count MPV Absolute Neuts (auto) Neutrophils % Neutrophils % (Manual) Band Neutrophils % Lymphocytes % Lymphocytes % (Manual) Monocytes % Monocytes % (Manual) Eosinophils % Eosinophils % (Manual) Basophils % Basophils % (Manual) Myelocytes % (Man) Promyelocytes % (Man) Blast Cells % (Manual) Nucleated RBC % Metamyelocytes Hypochromia Platelet Estimate Polychromasia Poikilocytosis Anisocytosis Microcytosis Macrocytosis ESR PT with INR INR Sodium Potassium Chloride Carbon Dioxide Anion Gap BUN Creatinine Est GFR (CKD-EPI)AfAm Est GFR (CKD-EPI)NonAf Random Glucose Lactic Acid Cancelled 0.8 Calcium Total Bilirubin AST ALT Alkaline Phosphatase Creatine Kinase Troponin I C-Reactive Protein Total Protein Albumin Blood Type AB POSITIVE Antibody Screen Negative 12/27/18 13:10 WBC RBC Hgb Hct MCV MCH MCHC RDW Plt Count MPV Absolute Neuts (auto) Neutrophils % Neutrophils % (Manual) Band Neutrophils % Lymphocytes % Lymphocytes % (Manual) Monocytes % Monocytes % (Manual) Eosinophils % Eosinophils % (Manual) Basophils % Basophils % (Manual) Myelocytes % (Man) Promyelocytes % (Man) Blast Cells % (Manual) Nucleated RBC % Metamyelocytes Hypochromia Platelet Estimate Polychromasia Poikilocytosis Anisocytosis Microcytosis Macrocytosis ESR PT with INR INR Sodium 138 Potassium 3.6 Chloride 100 Carbon Dioxide 28 Anion Gap 11 BUN 48 H Creatinine 4.1 H Est GFR (CKD-EPI)AfAm 11.27 Est GFR (CKD-EPI)NonAf 9.72 Random Glucose 98 Lactic Acid Calcium 9.3 Total Bilirubin 1.4 H AST 13 L ALT 10 L Alkaline Phosphatase 102 Creatine Kinase 67 Troponin I 0.02 C-Reactive Protein Total Protein 7.1 Albumin 2.5 L Blood Type Antibody Screen Home Medications Medication Instructions Recorded Amlodipine Besylate [Norvasc -] 10 mg PO DAILY 08/02/14 Atorvastatin Ca [Lipitor] 10 mg PO HS 03/29/17 Sevelamer Carbonate [Renvela -] 800 mg PO TID 03/29/17 Acetaminophen [Tylenol .Regular 650 mg PO Q4H PRN tablet 08/06/18 Strength -] Clopidogrel Bisulfate [Clopidogrel] 75 mg PO DAILY #30 tablet 08/06/18 Calcium Acetate [Phoslo -] 667 mg PO TID 08/23/18 Ferrous Sulfate 325 mg PO DAILY 08/23/18 Labetalol HCl [Normodyne -] 300 mg PO TID tablet 09/17/18 Sennosides [Senna -] 2 tab PO HS tablet 09/17/18 ASSESSMENT/PLAN: (1) Pressure ulcer n left heel ? osteo crp esr elevated IV antibiotic zosyn and vanco ID consult podiatry consult vascular surgery consult. change positing of pt q2 h avoid pressure on heel air mattress/ memory foam. (2) ESRD (end stage renal disease) on dialysis on , , sat dr kaufman consult continue renvela continue phoslo continue ferrous sulphate (3) Hypertension monitor continue home meds amlodipine and labetalol (4) Hyperlipidemia continue statin 5 PVD vascular surgery consult continue plavix dvt pro: heparin sq gi pro; not required fluid: orally allowed electrolyte: repeat in am nutrition: regular diet dispo; med surg Visit type - Emergency Visit Emergency Visit: Yes ED Registration Date: 12/27/18 Care time: The patient presented to the Emergency Department on the above date and was hospitalized for further evaluation of their emergent condition. - New Patient This patient is new to me today: Yes Date on this admission: 01/06/19 - Critical Care Critical Care patient: No
[2018-12-27] MEDS ORDERED: PIPERACILLIN/TAZOB 2.25 GM 2.25 GM in DEXTROSE 5%-WATER - 50 ML IVPB SCH (15:30)
[2018-12-27] MEDS ORDERED: PIPERACILLIN/TAZOB 2.25 GM 2.25 GM/50 ML BAG IVPB ONE (15:48)
[2018-12-27] MEDS: PIPERACILLIN/TAZOB 2.25 GM 2.25 GM in DEXTROSE 5%-WATER - 50 ML IVPB SCH ×2 (16:05→22:04)
--- NOTE | 2018-12-27 16:20 | PN ---
Teaching Attending Note Name of Resident: Morteza Montesinos ATTENDING PHYSICIAN STATEMENT I saw and evaluated the patient. I reviewed the resident's note and discussed the case with the resident. I agree with the resident's findings and plan as documented with exceptions below. 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 Paul/Dr. Rodriguez, sent in today with concerns for infected left heel wound. patient denies any fevers, chills, decreased oral intake, foot pain, trauma or bleed. 12 point ROS done, limited, uses wheelchair, in dependent in her ADLs at baseline. OBJECTIVE: Vital Signs Period Temp Pulse Resp BP Sys/Jha Pulse Ox Last 24 Hr 97.4 F 63-73 17-20 114-127/53-77 99-100 Intake & Output 12/24/18 12/25/18 12/26/18 12/27/18 23:59 23:59 23:59 23:59 Weight 156 lb GENERAL: Awake, alert,oriented to self, place, no acute distress HEAD: Normal with no signs of trauma. EYES: Pupils equal, round and reactive to light, extraocular movements intact, sclera anicteric, conjunctiva clear. No lid lag. EARS, NOSE, THROAT: Ears normal, nares patent, oropharynx clear without exudates. Moist mucous membranes. NECK: Soft, supple, no JVD noted LUNGS: decreased effort, no rales or wheezing appreciated HEART: Regular rate and rhythm, normal S1 and S2 ABDOMEN: Soft, nontender, not distended, normoactive bowel sounds, no guarding, no rebound, no masses. MUSCULOSKELETAL: Normal range of motion at all joints. No bony deformities or tenderness. No CVA tenderness. UPPER EXTREMITIES: 2+ pulses, warm, well-perfused. No cyanosis. No clubbing. No peripheral edema. Left arm AV fistula LOWER EXTREMITIES: Left foot TMA wound with granulation tissue, scant yellowish foul smelling discharge, black discoloration left heel, pos bogginess, with scant yellowish foul smelling discharge, unable to determine if probing to the bone, no palpable left DP pulse but pos capillary refill. RLE with pos palpable DP pulses, no swelling erythema or edema NEUROLOGICAL: AA, oriented to self, place, moves all extremities, Cranial nerves II-XII intact. Normal speech. Gait not observed PSYCHIATRIC: Cooperative. Good eye contact. Appropriate mood and affect. SKIN: Warm, dry, normal turgor, no rashes or lesions noted, normal capillary refill. Home Medications Medication Instructions Recorded Amlodipine Besylate [Norvasc -] 10 mg PO DAILY 08/02/14 Atorvastatin Ca [Lipitor] 10 mg PO HS 03/29/17 Sevelamer Carbonate [Renvela -] 800 mg PO TID 03/29/17 Acetaminophen [Tylenol .Regular 650 mg PO Q4H PRN tablet 08/06/18 Strength -] Clopidogrel Bisulfate [Clopidogrel] 75 mg PO DAILY #30 tablet 08/06/18 Calcium Acetate [Phoslo -] 667 mg PO TID 08/23/18 Ferrous Sulfate 325 mg PO DAILY 08/23/18 Labetalol HCl [Normodyne -] 300 mg PO TID tablet 09/17/18 Sennosides [Senna -] 2 tab PO HS tablet 09/17/18 Active Medications Acetaminophen (Tylenol -) 650 mg PO Q4H PRN PRN Reason: FEVER Amlodipine Besylate (Norvasc -) 10 mg PO DAILY [facility] Atorvastatin Calcium (Lipitor -) 10 mg PO HS NOE Clopidogrel Bisulfate (Plavix -) 75 mg PO DAILY [facility] Ferrous Sulfate (Feosol -) 325 mg PO DAILY [facility] Heparin Sodium (Porcine) (Heparin -) 5,000 unit SQ TID NOE Piperacillin Sod/Tazobactam (Sod 2.25 gm/ Dextrose) 50 mls @ 100 mls/hr IVPB Q6H-IV NOE; Protocol Piperacillin Sod/Tazobactam (Sod 2.25 gm/ Dextrose) 50 mls @ 100 mls/hr IVPB Q6H NOE Stop: 12/28/18 10:29 Last Admin: 12/27/18 16:05 Dose: 100 mls/hr Labetalol HCl (Normodyne -) 300 mg PO TID NOE Senna (Senna -) 2 tab PO HS NOE Sevelamer Carbonate (Renvela -) 800 mg PO TIDCM [facility] Laboratory Results - last 24 hr 12/27/18 12/27/18 12/27/18 12:00 12:00 12:00 WBC 12.1 H RBC 3.46 L Hgb 10.1 L Hct 30.8 L MCV 89.2 MCH 29.3 MCHC 32.8 RDW 17.7 H Plt Count 329 D MPV 8.9 Absolute Neuts (auto) 9.7 H Neutrophils % 80.1 D Neutrophils % (Manual) 81.6 Band Neutrophils % 0.0 Lymphocytes % 11.7 D Lymphocytes % (Manual) 10.2 Monocytes % 6.6 Monocytes % (Manual) 6 Eosinophils % 1.2 Eosinophils % (Manual) 2.1 Basophils % 0.4 Basophils % (Manual) 0.0 Myelocytes % (Man) 0 Promyelocytes % (Man) 0 Blast Cells % (Manual) 0 Nucleated RBC % 0 Metamyelocytes 0 Hypochromia 0 Platelet Estimate Normal Polychromasia 0 Poikilocytosis 0 Anisocytosis 0 Microcytosis 0 Macrocytosis 0 ESR PT with INR INR Sodium Cancelled Potassium Cancelled Chloride Cancelled Carbon Dioxide Cancelled Anion Gap Cancelled BUN Cancelled Creatinine Cancelled Est GFR (CKD-EPI)AfAm Cancelled Est GFR (CKD-EPI)NonAf Cancelled Random Glucose Cancelled Lactic Acid Calcium Cancelled Total Bilirubin Cancelled AST Cancelled ALT Cancelled Alkaline Phosphatase Cancelled Creatine Kinase Cancelled Troponin I Cancelled C-Reactive Protein Total Protein Cancelled Albumin Cancelled Blood Type Cancelled Antibody Screen Cancelled 12/27/18 12/27/18 12/27/18 12:00 12:00 12:00 WBC RBC Hgb Hct MCV MCH MCHC RDW Plt Count MPV Absolute Neuts (auto) Neutrophils % Neutrophils % (Manual) Band Neutrophils % Lymphocytes % Lymphocytes % (Manual) Monocytes % Monocytes % (Manual) Eosinophils % Eosinophils % (Manual) Basophils % Basophils % (Manual) Myelocytes % (Man) Promyelocytes % (Man) Blast Cells % (Manual) Nucleated RBC % Metamyelocytes Hypochromia Platelet Estimate Polychromasia Poikilocytosis Anisocytosis Microcytosis Macrocytosis ESR 54 H PT with INR 13.40 H INR 1.13 H Sodium Potassium Chloride Carbon Dioxide Anion Gap BUN Creatinine Est GFR (CKD-EPI)AfAm Est GFR (CKD-EPI)NonAf Random Glucose Lactic Acid Calcium Total Bilirubin AST ALT Alkaline Phosphatase Creatine Kinase Troponin I C-Reactive Protein 16.0 H Total Protein Albumin Blood Type Antibody Screen 12/27/18 12/27/18 12/27/18 12:00 13:09 13:09 WBC RBC Hgb Hct MCV MCH MCHC RDW Plt Count MPV Absolute Neuts (auto) Neutrophils % Neutrophils % (Manual) Band Neutrophils % Lymphocytes % Lymphocytes % (Manual) Monocytes % Monocytes % (Manual) Eosinophils % Eosinophils % (Manual) Basophils % Basophils % (Manual) Myelocytes % (Man) Promyelocytes % (Man) Blast Cells % (Manual) Nucleated RBC % Metamyelocytes Hypochromia Platelet Estimate Polychromasia Poikilocytosis Anisocytosis Microcytosis Macrocytosis ESR PT with INR INR Sodium Potassium Chloride Carbon Dioxide Anion Gap BUN Creatinine Est GFR (CKD-EPI)AfAm Est GFR (CKD-EPI)NonAf Random Glucose Lactic Acid Cancelled 0.8 Calcium Total Bilirubin AST ALT Alkaline Phosphatase Creatine Kinase Troponin I C-Reactive Protein Total Protein Albumin Blood Type AB POSITIVE Antibody Screen Negative 12/27/18 13:10 WBC RBC Hgb Hct MCV MCH MCHC RDW Plt Count MPV Absolute Neuts (auto) Neutrophils % Neutrophils % (Manual) Band Neutrophils % Lymphocytes % Lymphocytes % (Manual) Monocytes % Monocytes % (Manual) Eosinophils % Eosinophils % (Manual) Basophils % Basophils % (Manual) Myelocytes % (Man) Promyelocytes % (Man) Blast Cells % (Manual) Nucleated RBC % Metamyelocytes Hypochromia Platelet Estimate Polychromasia Poikilocytosis Anisocytosis Microcytosis Macrocytosis ESR PT with INR INR Sodium 138 Potassium 3.6 Chloride 100 Carbon Dioxide 28 Anion Gap 11 BUN 48 H Creatinine 4.1 H Est GFR (CKD-EPI)AfAm 11.27 Est GFR (CKD-EPI)NonAf 9.72 Random Glucose 98 Lactic Acid Calcium 9.3 Total Bilirubin 1.4 H AST 13 L ALT 10 L Alkaline Phosphatase 102 Creatine Kinase 67 Troponin I 0.02 C-Reactive Protein Total Protein 7.1 Albumin 2.5 L Blood Type Antibody Screen EKG NSR, LVH ASSESSMENT AND PLAN: 78 yof with PMHx of ESRD on HD (T,,S), HTN, HLD, PVD (s/p left TMA/flap), admitted with Left heel infection concerning for abscess +/- osteomyelitis. -Left heel infection, suspicious for abscess, r/o osteomyelitis -PVD -s/p Left TMA/flap surgery -ESRD on HD -HTN -HLD -?NIDDM Plan: Zosyn/Vanco renal dosing. Blood/wound cx. ID/podiatry/vascular surgery input. ESR/CRP noted. MRI LLE. Suspect will need I&D/Debridement +/- additional surgical intervention. Continue plavix/labetalol/amlodipine. Sevelamer/Iron ?NIDDM. Last A1c 4.5, monitor for now. DVTPPX heparin Dispo admit to med surg, needs IV antibiotics, and likely surgical intervention Plan discussed with patient in detail, all questions answered. total admit time 65 min.
--- NOTE | 2018-12-27 17:16 | PDOC ---
Documentation entered by Dean Gallagher SCRIBE, acting as scribe for Yuri Medina MD. Yuri Medina MD: This documentation has been prepared by the Elliott carver Nirvannie, SCRIBE, under my direction and personally reviewed by me in its entirety. I confirm that the documentation accurately reflects all work, treatment, procedures, and medical decision making performed by me. History of Present Illness - General Chief Complaint: Wound Stated Complaint: WOUND Time Seen by Provider: 12/27/18 11:12 History Source: Patient Exam Limitations: No Limitations - History of Present Illness Initial Comments: 12/27/18 11:59 The patient is a 78 year old female, with a significant past medical history of ESRD (T,Th,S), DM, HTN, HLD, PVD (s/p amputation of L toes), who presents to the emergency department with, itchy left heel wound. As per patient, she was at wound care today with Dr. Paul and was advised to report to the ED for further evaluation and admission secondary to worsening wound with foul- smelling purulent discharge. She denies any pain to the wound. She denies recent fevers, chills, headache or dizziness. She denies recent nausea, vomit, diarrhea or constipation. She denies recent dysuria, frequency, urgency or hematuria. She denies recent chest pain or shortness of breath. Allergies: NKDA Past surgical history: AV fistula, TAHBSO, Amputation of L toes Social history: Nonsmoker. Denies EtOH use and recreational drug use. Primary Care Physician: Dr. Driscoll Manager Forensic/Wound Care: Dr. Paul Past History - Past Medical History Allergies/Adverse Reactions: Allergies Allergy/AdvReac Type Severity Reaction Status Date / Time No Known Drug Allergies Allergy Verified 09/06/18 10:08 Home Medications: Ambulatory Orders Amlodipine Besylate [Norvasc -] 10 mg PO DAILY 08/02/14 Atorvastatin Ca [Lipitor] 10 mg PO HS 03/29/17 Sevelamer Carbonate [Renvela -] 800 mg PO TID 03/29/17 Acetaminophen [Tylenol .Regular Strength -] 650 mg PO Q4H PRN tablet 08/06/18 Clopidogrel Bisulfate [Clopidogrel] 75 mg PO DAILY #30 tablet 08/06/18 Calcium Acetate [Phoslo -] 667 mg PO TID 08/23/18 Ferrous Sulfate 325 mg PO DAILY 08/23/18 Labetalol HCl [Normodyne -] 300 mg PO TID tablet 09/17/18 Sennosides [Senna -] 2 tab PO HS tablet 09/17/18 Anemia: Yes Asthma: No Cancer: No Cardiac Disorders: Yes (HTN) CVA: No COPD: No CHF: No Dementia: No Diabetes: Yes (diet controlled) Dialysis: Yes (--mon) GI Disorders: No Disorders: No HTN: Yes (ESRD) Hypercholesterolemia: Yes Liver Disease: No Seizures: No Thyroid Disease: No - Surgical History Abdominal Surgery: No Appendectomy: No Cholecystectomy: Yes Lung Surgery: No Neurologic Surgery: No Orthopedic Surgery: Yes (RT KNEE REPLACEMENT) - Immunization History Immunization Up to Date: Yes - Suicide/Smoking/Psychosocial Hx Smoking History: Never smoked Have you smoked in the past 12 months: No Number of Cigarettes Smoked Daily: 0 Hx Alcohol Use: No Drug/Substance Use Hx: No Substance Use Type: None Hx Substance Use Treatment: No Review of Systems - Review of Systems Able to Perform ROS?: Yes Comments:: 12/27/18 12:00 CONSTITUTIONAL: No reported: Fever, Chills, Diaphoresis, Generalized Weakness, Malaise, Loss of Appetite HEENT: No reported: Rhinorrhea, Nasal Congestion, Throat Pain, Throat Swelling, Difficulty Swallowing, Mouth Swelling, Ear Pain, Eye Pain, Visual Changes CARDIOVASCULAR: No reported: Chest Pain, Syncope, Palpitations, Irregular Heart Rate, Lightheadedness, Peripheral Edema RESPIRATORY: No reported: Cough, Shortness of Breath, SOB with Exertion, Orthopnea, Wheezing , Stridor, Hemoptysis GASTROINTESTINAL: No reported: Abdominal pain, Abdominal Distension, Nausea, Vomiting, Diarrhea, Constipation, Melena, Hematochezia GENITOURINARY: No reported: Dysuria, Frequency, Urgency, Hesitancy, Flank Pain, Genital Pain MUSCULOSKELETAL: No reported: Myalgia, Arthralgia, Joint Swelling, Back pain, Neck Pain SKIN: Present: Left heel wound. No reported:Pallor HEMEATOLOGIC/IMMUNOLOGIC: No reported: Easy Bleeding, Easy Bruising, Lymphadenopathy, Frequent infections ENDOCRINE: No reported: Unexplained Weight Gain, Unexplained Weight Loss, Heat Intolerance , Cold Intolerance NEUROLOGIC: No reported: Headache, Focal Weakness, Paresthesias, Vertigo, Lightheadedness, Unsteady Gait, Seizure, Mental Status Changes, Incontinence PSYCHIATRIC: No reported: Anxiety, Depression All Other Systems: Reviewed and Negative *Physical Exam - Vital Signs Last Vital Signs Temp Pulse Resp BP Pulse Ox 97.4 F L 73 17 114/53 L 99 12/27/18 10:15 12/27/18 10:15 12/27/18 10:15 12/27/18 10:15 12/27/18 10:15 - Physical Exam Comments: 12/27/18 11:39 GENERAL: The patient is awake, alert, and fully oriented, Nontoxic - in no acute distress. HEAD: Normocephalic, atraumatic. EYES: extraocular movements intact, sclera anicteric, conjunctiva clear. ENT: Normal voice, Moist mucous membranes. NECK: Normal range of motion, supple LUNGS: Breath sounds equal, clear to auscultation bilaterally. No wheezes, no rhonchi, no rales. HEART: Regular rate and rhythm, normal S1 and S2 without murmur, rub or gallop. ABDOMEN: Soft, nontender, normoactive bowel sounds. No guarding, no rebound. . No CVA tenderness EXTREMITIES: L foot - clean wound on distal foot (s/p amputation, sp debridment by wound care), L heel - boggy/dusky with skin break, no warmth/redness, +foul d /c on dressing, measures 4.5cm x 6.5cm x 1.2cm NEUROLOGICAL: No facial assymetry, Normal speech, moving all 4 ext spontaneously and symmetrically PSYCH: Normal mood, normal affect. SKIN: Warm, Dry, normal turgor, Heart Score/ECG Review - ECG Impressions Comment:: 12/27/18 11:44 Twelve-lead EKG was performed and reviewed by me. There is normal sinus rhythm with a normal rate. Rate of 61 The intervals are normal. Abnormal R wave progression ED Treatment Course - LABORATORY CBC & Chemistry Diagram: 12/27/18 12:00 12/27/18 13:10 - RADIOLOGY Radiology Studies Ordered: Category Date Time Status CHEST X-RAY PORTABLE* [RAD] Stat Radiology 12/27/18 11:36 Ordered Medical Decision Making - Medical Decision Making 12/27/18 11:46 78-year-old female history of EESRD (T,Th,S), DM, HTN, HLD, PVD, sent from wound care for evaluation of a deep unstageable wound on the left heel - patient has otherwise been asymptomatic without increased pain, fevers of a does know that there was increased foul-smelling discharge from her left heel. On exam the patient is in no acute distress her left heel does reveal a large boggy area that is nontender there is a puncture wound to there is no active discharge currently Consider possible gangrene versus osteomyelitis versus abscess. We'll obtain x-ray of the left heel to rule out osteomyelitis, we'll obtain blood work, cultures anticipate antibiotics and inpatient management *DC/Admit/Observation/Transfer Diagnosis at time of Disposition: ESRD (end stage renal disease), Left foot infection - Discharge Dispostion Condition at time of disposition: Stable Decision to Admit order: Yes - Referrals Referrals: Gautam Driscoll MD [Primary Care Provider] - - Patient Instructions - Post Discharge Activity
[2018-12-27] MEDS: CLOPIDOGREL BISULFATE 75 MG TABLET (FP) PO SCH (17:58)
[2018-12-27] MEDS: SEVELAMER CARBONATE 800 MG TAB (FP) PO SCH (17:59)
[2018-12-27] MEDS ORDERED: CLOPIDOGREL BISULFATE 75 MG TABLET (FP) ONE (18:00)
[2018-12-27] MEDS ORDERED: PIPERACILLIN/TAZOBACTAM 2.25 GM VIAL IVPB ONE (21:04)
[2018-12-27] MEDS ORDERED: DEXTROSE 5%-WATER - 50 ML IVPB ONE (21:05)
[2018-12-27] MEDS: SENNOSIDES 8.6MG TABLET (FP) PO SCH (22:03)
[2018-12-27] MEDS: LABETALOL HCL 200 MG TABLET (FP) PO SCH (22:03)
[2018-12-27] MEDS: ATORVASTATIN CA 10 MG TABLET (FP) PO SCH (22:03)
[2018-12-27] MEDS: HEPARIN NA (PORCINE) 5,000 UNITS/ML 1ML VIAL SQ SCH (22:04)
[2018-12-28] MEDS: PIPERACILLIN/TAZOB 2.25 GM 2.25 GM in DEXTROSE 5%-WATER - 50 ML IVPB SCH ×3 (03:49→17:18)
[2018-12-28] MEDS: HEPARIN NA (PORCINE) 5,000 UNITS/ML 1ML VIAL SQ SCH ×3 (05:39→21:28)
[2018-12-28] MEDS: LABETALOL HCL 200 MG TABLET (FP) PO SCH ×3 (05:39→21:26)
[2018-12-28 08:04] LABS: BASO % 0.5 % (0-2.0); EOS % 1.7 % (0-4.5); HEMATOCRIT 30.8 % (32.4-45.2); HEMOGLOBIN 9.9 GM/dL (10.7-15.3); MCH 28.9 pg (25.7-33.7); MCHC 32.1 g/dl (32.0-36.0); MEAN CELL VOLUME 89.9 fl (80-96); MEAN PLT VOLUME 7.9 fl (7.5-11.1); MONO % 7.2 % (3.8-10.2); NEUT % 76.6 % (42.8-82.8); PLATELET COUNT 270 K/MM3 (134-434); RBC 3.43 M/mm3 (3.60-5.2); RDW 17.2 % (11.6-15.6); WHITE BLOOD COUNT 12.7 K/mm3 (4.0-10.0)
[2018-12-28 08:15] LABS: INR 1.15 (0.83-1.09); PROTHROMBIN TIME (PATIENT) 13.6 SEC (9.7-13.0)
[2018-12-28 08:17] LABS: ALBUMIN 2.4 g/dl (3.4-5.0); BILIRUBIN,TOTAL 1.4 mg/dL (0.2-1); CALCIUM 9.1 mg/dL (8.5-10.1); CREATININE 4.8 mg/dL (0.55-1.3); MAGNESIUM 2.4 mg/dL (1.8-2.4); POTASSIUM 3.7 mmol/L (3.5-5.1)
[2018-12-28 08:18] LABS: ACTIVATED PTT 45.7 SECONDS (25.2-36.5)
[2018-12-28] MEDS: SEVELAMER CARBONATE 800 MG TAB (FP) PO SCH ×3 (09:00→16:29)
[2018-12-28] MEDS ORDERED: PT OWN MED DRAWER 7, Y5N ONE (09:13)
[2018-12-28] MEDS ORDERED: PIPERACILLIN/TAZOBACTAM 2.25 GM VIAL IVPB ONE (09:13)
[2018-12-28] MEDS ORDERED: DEXTROSE 5%-WATER - 50 ML IVPB ONE (09:13)
--- NOTE | 2018-12-28 09:52 | CONSULT ---
- Consultation REQUESTING PROVIDER: CONSULT REQUEST: We have been asked to surgically evaluate this patient for ( left foot ulcers). 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 Pt reports she is unsure when or how L heel wound began. Initially noticed it a few days ago and was seen by her Meat Butcher for evaluation. Denies fevers/chills, n/v/d, calf pain/edema. Pt reports being at [facility] for re[facility] for the past few weeks due to her last completion TMA. Has not walked over the past few months due to issues with her left foot. At baseline pt lives home with , has daughters who visit often. Pt was treated with a wound vac for the wound over her TMA up until recently. Has not been prescribed any medication for her heel wound. According to EMR pt has been evaluated for HBO and planned for visits, has not been attending. PMHx: as above PSHx: as above Home Medications Medication Instructions Recorded Amlodipine Besylate [Norvasc -] 10 mg PO DAILY 08/02/14 Atorvastatin Ca [Lipitor] 10 mg PO HS 03/29/17 Sevelamer Carbonate [Renvela -] 800 mg PO TID 03/29/17 Acetaminophen [Tylenol .Regular 650 mg PO Q4H PRN tablet 08/06/18 Strength -] Clopidogrel Bisulfate [Clopidogrel] 75 mg PO DAILY #30 tablet 08/06/18 Calcium Acetate [Phoslo -] 667 mg PO TID 08/23/18 Ferrous Sulfate 325 mg PO DAILY 08/23/18 Labetalol HCl [Normodyne -] 300 mg PO TID tablet 09/17/18 Sennosides [Senna -] 2 tab PO HS tablet 09/17/18 Allergies Allergy/AdvReac Type Severity Reaction Status Date / Time No Known Drug Allergies Allergy Verified 09/06/18 10:08 REVIEW OF SYSTEMS: CONSTITUTIONAL: Absent: fever, chills CARDIOVASCULAR: Absent: chest pain RESPIRATORY: Absent: cough, shortness of breath GASTROINTESTINAL: Absent: abdominal pain PHYSICAL EXAM: GENERAL: Awake, alert, and fully oriented, in no acute distress. HEAD: Normal with no signs of trauma. UPPER EXTREMITIES: LUE AVF/BVT aneurysmal with good thrill. Two small superficial scabs overlying AVF likely from recent HD. LOWER EXTREMITIES: R foot without ulcers/ lesions. L foot with TMA, approx 3.0cm x 3.3cm x 0.5cm over distal aspect of TMA. Wound bed with fibrinous exudate centrally and necrotic tissue at edges of wound. Scant serous drainage, no erythema. Medial aspect of foot with healed ulcer. L heel with large soft eschar approximately 4.5cm x 6.5cm x 1.2cm. Unable to express any drainage from echar, however posterior aspect appears to be from the skin. No erythema. Minimal ttp. Vasc: 2+ b/l fem, R pt 1+, r dp/at not appreciated, left dp/pt/at not appreciated. Vital Signs Temperature 98.2 F 12/28/18 06:00 Pulse Rate 62 12/28/18 06:00 Respiratory Rate 20 12/28/18 06:00 Blood Pressure 132/69 12/28/18 06:00 O2 Sat by Pulse Oximetry (%) 98 12/27/18 20:00 Lab Results WBC 12.7 K/mm3 (4.0-10.0) H 12/28/18 06:30 RBC 3.43 M/mm3 (3.60-5.2) L 12/28/18 06:30 Hgb 9.9 GM/dL (10.7-15.3) L 12/28/18 06:30 Hct 30.8 % (32.4-45.2) L 12/28/18 06:30 MCV 89.9 fl (80-96) 12/28/18 06:30 MCHC 32.1 g/dl (32.0-36.0) 12/28/18 06:30 RDW 17.2 % (11.6-15.6) H 12/28/18 06:30 Plt Count 270 K/MM3 (134-434) 12/28/18 06:30 Sodium 136 mmol/L (136-145) 12/28/18 06:30 Potassium 3.7 mmol/L (3.5-5.1) 12/28/18 06:30 Chloride 97 mmol/L (98-107) L 12/28/18 06:30 Carbon Dioxide 28 mmol/L (21-32) 12/28/18 06:30 Anion Gap 12 MMOL/L (8-16) 12/28/18 06:30 BUN 51 mg/dL (7-18) H 12/28/18 06:30 Creatinine 4.8 mg/dL (0.55-1.3) H 12/28/18 06:30 Random Glucose 71 mg/dL (74-106) L 12/28/18 06:30 Calcium 9.1 mg/dL (8.5-10.1) 12/28/18 06:30 Blood Type AB POSITIVE 12/27/18 13:09 Antibody Screen Negative 12/27/18 13:09 INR 1.15 (0.83-1.09) H 12/28/18 06:30 A/P: 78 y/o F known to Vascular (followed by Dr Rodriguez) w/ PMHx ESRD via LUE AVF/ BVT (Dr Amato 07/2014) on HD T,Th,S, HTN, HLD, PVD s/p LLE PALLAVI angioplasty (Dr Rodriguez, 07/24/2018), 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 MRI pending, foot xray (12/27/18) with no evidence of fx or osteomyelitis Afebrile, Leukocytosis 12k. -F/U MRI read -Abx per ID -Continue Plavix/statin -Betadine solution to L heel, santyl to tma wound, change daily -Reposition every two hours while in bed -Air mattress recommended -Use drawsheets and Trendelenburg when repositioning to reduce friction and shear -Manageincontinence via timely cleansing, use of appropriate incontinence disposables and use of barrier ointment to intact skin -Ensure adequate hydration/nutrition, supplementation per primary team -Ensure off-loading to all bony areas (heels, ankles, hips and tailbone) with Allevyn/Optifoam -CTA b/l le's ordered for delineation of anatomy/vascular disease. Spoke with Radiology to obtain the study today, 12/28 as pt is on HD with a // schedule above d/w attending Dr Rodriguez, pts RN aware of plan
[2018-12-28] MEDS: ACETAMINOPHEN 325 MG TABLET (FP) PO PRN (10:34)
[2018-12-28] MEDS: CLOPIDOGREL BISULFATE 75 MG TABLET (FP) PO SCH (10:36)
[2018-12-28] MEDS: amLODIPine BESYLATE 10 MG TABLET (FP) PO SCH (10:38)
[2018-12-28] MEDS: FERROUS SO4 325 MG TABLET (FP) PO SCH (10:39)
--- NOTE | 2018-12-28 11:05 | PN ---
Physical Exam: SUBJECTIVE: Patient seen and examined at bedside. Offers no new complaints than presenting symptoms of some pain around L foot. No fevers, chills, nausea, vomiting. No acute events overnight. OBJECTIVE: Vital Signs Temperature 98.2 F 12/28/18 06:00 Pulse Rate 62 12/28/18 06:00 Respiratory Rate 20 12/28/18 06:00 Blood Pressure 132/69 12/28/18 06:00 O2 Sat by Pulse Oximetry (%) 98 12/27/18 20:00 GENERAL: The patient is awake, alert, and fully oriented, in no acute distress. EYES: extraocular movements intact, sclera anicteric, conjunctiva clear. NECK: Trachea midline, full range of motion LUNGS: Breath sounds equal, clear to auscultation bilaterally HEART: Regular rate and rhythm, S1, S2 ABDOMEN: Soft, nontender, nondistended, normoactive bowel sounds EXTREMITIES: RLE with no edema, no skin lesions, no ulcerations. LLE wrapped in dressing. NEUROLOGICAL: Cranial nerves II through XII grossly intact. Normal speech. PSYCH: Normal mood, normal affect. SKIN: Warm, dry, LLE wrapped in dressing. Laboratory Results - last 24 hr 12/27/18 12/27/18 12/27/18 12:00 12:00 12:00 WBC 12.1 H RBC 3.46 L Hgb 10.1 L Hct 30.8 L MCV 89.2 MCH 29.3 MCHC 32.8 RDW 17.7 H Plt Count 329 D MPV 8.9 Absolute Neuts (auto) 9.7 H Neutrophils % 80.1 D Neutrophils % (Manual) 81.6 Band Neutrophils % 0.0 Lymphocytes % 11.7 D Lymphocytes % (Manual) 10.2 Monocytes % 6.6 Monocytes % (Manual) 6 Eosinophils % 1.2 Eosinophils % (Manual) 2.1 Basophils % 0.4 Basophils % (Manual) 0.0 Myelocytes % (Man) 0 Promyelocytes % (Man) 0 Blast Cells % (Manual) 0 Nucleated RBC % 0 Metamyelocytes 0 Hypochromia 0 Platelet Estimate Normal Polychromasia 0 Poikilocytosis 0 Anisocytosis 0 Microcytosis 0 Macrocytosis 0 ESR PT with INR INR PTT (Actin FS) Sodium Cancelled Potassium Cancelled Chloride Cancelled Carbon Dioxide Cancelled Anion Gap Cancelled BUN Cancelled Creatinine Cancelled Est GFR (CKD-EPI)AfAm Cancelled Est GFR (CKD-EPI)NonAf Cancelled Random Glucose Cancelled Lactic Acid Calcium Cancelled Phosphorus Magnesium Total Bilirubin Cancelled AST Cancelled ALT Cancelled Alkaline Phosphatase Cancelled Creatine Kinase Cancelled Troponin I Cancelled C-Reactive Protein Total Protein Cancelled Albumin Cancelled Blood Type Cancelled Antibody Screen Cancelled 12/27/18 12/27/18 12/27/18 12:00 12:00 12:00 WBC RBC Hgb Hct MCV MCH MCHC RDW Plt Count MPV Absolute Neuts (auto) Neutrophils % Neutrophils % (Manual) Band Neutrophils % Lymphocytes % Lymphocytes % (Manual) Monocytes % Monocytes % (Manual) Eosinophils % Eosinophils % (Manual) Basophils % Basophils % (Manual) Myelocytes % (Man) Promyelocytes % (Man) Blast Cells % (Manual) Nucleated RBC % Metamyelocytes Hypochromia Platelet Estimate Polychromasia Poikilocytosis Anisocytosis Microcytosis Macrocytosis ESR 54 H PT with INR 13.40 H INR 1.13 H PTT (Actin FS) Sodium Potassium Chloride Carbon Dioxide Anion Gap BUN Creatinine Est GFR (CKD-EPI)AfAm Est GFR (CKD-EPI)NonAf Random Glucose Lactic Acid Calcium Phosphorus Magnesium Total Bilirubin AST ALT Alkaline Phosphatase Creatine Kinase Troponin I C-Reactive Protein 16.0 H Total Protein Albumin Blood Type Antibody Screen 12/27/18 12/27/18 12/27/18 12:00 13:09 13:09 WBC RBC Hgb Hct MCV MCH MCHC RDW Plt Count MPV Absolute Neuts (auto) Neutrophils % Neutrophils % (Manual) Band Neutrophils % Lymphocytes % Lymphocytes % (Manual) Monocytes % Monocytes % (Manual) Eosinophils % Eosinophils % (Manual) Basophils % Basophils % (Manual) Myelocytes % (Man) Promyelocytes % (Man) Blast Cells % (Manual) Nucleated RBC % Metamyelocytes Hypochromia Platelet Estimate Polychromasia Poikilocytosis Anisocytosis Microcytosis Macrocytosis ESR PT with INR INR PTT (Actin FS) Sodium Potassium Chloride Carbon Dioxide Anion Gap BUN Creatinine Est GFR (CKD-EPI)AfAm Est GFR (CKD-EPI)NonAf Random Glucose Lactic Acid Cancelled 0.8 Calcium Phosphorus Magnesium Total Bilirubin AST ALT Alkaline Phosphatase Creatine Kinase Troponin I C-Reactive Protein Total Protein Albumin Blood Type AB POSITIVE Antibody Screen Negative 12/27/18 12/28/18 12/28/18 13:10 06:30 06:30 WBC 12.7 H RBC 3.43 L Hgb 9.9 L Hct 30.8 L MCV 89.9 MCH 28.9 MCHC 32.1 RDW 17.2 H Plt Count 270 MPV 7.9 D Absolute Neuts (auto) 9.7 H Neutrophils % 76.6 Neutrophils % (Manual) Band Neutrophils % Lymphocytes % 14.0 Lymphocytes % (Manual) Monocytes % 7.2 Monocytes % (Manual) Eosinophils % 1.7 Eosinophils % (Manual) Basophils % 0.5 Basophils % (Manual) Myelocytes % (Man) Promyelocytes % (Man) Blast Cells % (Manual) Nucleated RBC % 0 Metamyelocytes Hypochromia Platelet Estimate Polychromasia Poikilocytosis Anisocytosis Microcytosis Macrocytosis ESR PT with INR 13.60 H INR 1.15 H PTT (Actin FS) 45.7 H Sodium 138 Potassium 3.6 Chloride 100 Carbon Dioxide 28 Anion Gap 11 BUN 48 H Creatinine 4.1 H Est GFR (CKD-EPI)AfAm 11.27 Est GFR (CKD-EPI)NonAf 9.72 Random Glucose 98 Lactic Acid Calcium 9.3 Phosphorus Magnesium Total Bilirubin 1.4 H AST 13 L ALT 10 L Alkaline Phosphatase 102 Creatine Kinase 67 Troponin I 0.02 C-Reactive Protein Total Protein 7.1 Albumin 2.5 L Blood Type Antibody Screen 12/28/18 06:30 WBC RBC Hgb Hct MCV MCH MCHC RDW Plt Count MPV Absolute Neuts (auto) Neutrophils % Neutrophils % (Manual) Band Neutrophils % Lymphocytes % Lymphocytes % (Manual) Monocytes % Monocytes % (Manual) Eosinophils % Eosinophils % (Manual) Basophils % Basophils % (Manual) Myelocytes % (Man) Promyelocytes % (Man) Blast Cells % (Manual) Nucleated RBC % Metamyelocytes Hypochromia Platelet Estimate Polychromasia Poikilocytosis Anisocytosis Microcytosis Macrocytosis ESR PT with INR INR PTT (Actin FS) Sodium 136 Potassium 3.7 Chloride 97 L Carbon Dioxide 28 Anion Gap 12 BUN 51 H Creatinine 4.8 H Est GFR (CKD-EPI)AfAm 9.31 Est GFR (CKD-EPI)NonAf 8.04 Random Glucose 71 L Lactic Acid Calcium 9.1 Phosphorus 4.0 Magnesium 2.4 Total Bilirubin 1.4 H AST 11 L ALT 8 L Alkaline Phosphatase 101 Creatine Kinase Troponin I C-Reactive Protein Total Protein 7.0 Albumin 2.4 L Blood Type Antibody Screen Active Medications Generic Name Dose Route Start Last Admin Trade Name Freq PRN Reason Stop Dose Admin Acetaminophen 650 mg 12/27/18 16:15 12/28/18 10:34 Tylenol - PO 650 mg Q4H PRN Administration FEVER Amlodipine Besylate 10 mg 12/28/18 10:00 12/28/18 10:38 Norvasc - PO 10 mg DAILY NOE Administration Atorvastatin Calcium 10 mg 12/27/18 22:00 12/27/18 22:03 Lipitor - PO 10 mg HS NOE Administration Clopidogrel Bisulfate 75 mg 12/27/18 16:30 12/28/18 10:36 Plavix - PO 75 mg DAILY NOE Administration Collagenase 1 applic 12/28/18 11:00 Santyl - TP DAILY [facility] Protocol Ferrous Sulfate 325 mg 12/28/18 10:00 12/28/18 10:39 Feosol - PO 325 mg DAILY NOE Administration Heparin Sodium (Porcine) 5,000 unit 12/27/18 22:00 12/28/18 05:39 Heparin - SQ 5,000 unit TID NOE Administration Piperacillin Sod/Tazobactam 50 mls @ 100 mls/hr 12/27/18 15:30 Sod 2.25 gm/ Dextrose IVPB Q6H-IV [facility] Protocol Labetalol HCl 300 mg 12/27/18 22:00 12/28/18 05:39 Normodyne - PO 300 mg TID NOE Administration Senna 2 tab 12/27/18 22:00 12/27/18 22:03 Senna - PO 2 tab HS NOE Administration Sevelamer Carbonate 800 mg 12/27/18 17:30 12/28/18 09:00 Renvela - PO 800 mg TIDCM NOE Administration ASSESSMENT/PLAN: 78 y/o M w/PMH of ESRD (T,Th,S), HTN, HLD, PVD (s/p amputation of L toes) presents for wound evaluation on LLE. -LLE ulceration -r/o OM. -c/w zosyn, vanco. ID consulted. Random vanco ordered. -vascular surgery following, podiatry consulted -CTA of b/l LE for delineation of anatomy/vascular dz -daily dressing changes, betadine solution to L heel -air mattress, pressure offloading -MRI LE: Impression: 1. Limited examination due to motion artifact. 2. Open wound over the posterior medial soft tissues over the posterior plantar aspect of the calcaneus with soft tissue edema deep to the open wound extending to level of the calcaneus. 3. Rim of increased T2 signal along the posterior plantar aspect of the medial calcaneus which could be in the soft tissues adjacent to the cortex however on one image is questionably involving the cortex which could be due to reactive osteitis however early osteomyelitis cannot be entirely excluded. 4. Question of faint bone marrow edema of the distal aspect of the residual second metatarsal. Clinical correlation recommended. -ESRD -HD TTS -nephrology following -HD per nephro -c/w renvela, phoslo, iron -1.2 L fluid restriction per nephro recs -HTN -c/w amlodipine, labetalol -HLD -c/w lipitor -PVD -c/w plavix, lipitor -Possible hx of DM -will monitor glucose here -DVT ppx -Heparin 5000 units q8h -FEN -No fluids -Monitor electrolytes -Regular diet -Dispo: monitor on m/s Visit type - Emergency Visit Emergency Visit: Yes ED Registration Date: 12/27/18 Care time: The patient presented to the Emergency Department on the above date and was hospitalized for further evaluation of their emergent condition. - New Patient This patient is new to me today: Yes Date on this admission: 12/28/18 - Critical Care Critical Care patient: No
--- NOTE | 2018-12-28 12:32 | CON.ID ---
Consult Consult Specialty:: infectious diseases Referred by:: Reason for Consultation:: non healing ulcer necrotic of the left heel - History of Present Illness Chief Complaint: non healing ulcer of the heel History of Present Illness: 78 year old female, with a significant past medical history of ESRD (T,Th,S), HTN, HLD, PVD (s/p amputation of L toes), who presents to the emergency department with, itchy left heel wound. As per patient, admitted for further evaluation and admission secondary to worsening wound with foul-smelling purulent discharge. She denies any pain to the wound. She denies recent fevers, chills, headache or dizziness. She denies recent nausea, vomit, diarrhea or constipation. She denies recent dysuria, frequency, urgency or hematuria. She denies recent chest pain or shortness of breath. - History Source History Provided By: Patient, Medical Record Limitations to Obtaining History: Poor Historian - Past Medical History Cardio/Vascular: Yes: HTN, Hyperlipdemia Gastrointestinal: Yes: GERD Renal/: Yes: Renal Failure, Hemodialysis ...: No Endocrine: Yes: Diabetes Mellitus - Past Surgical History Past Surgical History: Yes: AV Fistula/Graft, Hysterectomy, Joint Replacement, Oopherectomy - Alcohol/Substance Use Hx Alcohol Use: No History of Substance Use: reports: None - Smoking History Smoking history: Never smoked Have you smoked in the past 12 months: No Aproximately how many cigarettes per day: 0 - Social History Usual Living Arrangement: With Child ADL: Support Services History of Recent Travel: No Home Medications - Allergies Allergies/Adverse Reactions: Allergies Allergy/AdvReac Type Severity Reaction Status Date / Time No Known Drug Allergies Allergy Verified 09/06/18 10:08 - Home Medications Home Medications: Ambulatory Orders Amlodipine Besylate [Norvasc -] 10 mg PO DAILY 08/02/14 Atorvastatin Ca [Lipitor] 10 mg PO HS 03/29/17 Sevelamer Carbonate [Renvela -] 800 mg PO TID 03/29/17 Acetaminophen [Tylenol .Regular Strength -] 650 mg PO Q4H PRN tablet 08/06/18 Clopidogrel Bisulfate [Clopidogrel] 75 mg PO DAILY #30 tablet 08/06/18 Calcium Acetate [Phoslo -] 667 mg PO TID 08/23/18 Ferrous Sulfate 325 mg PO DAILY 08/23/18 Labetalol HCl [Normodyne -] 300 mg PO TID tablet 09/17/18 Sennosides [Senna -] 2 tab PO HS tablet 09/17/18 Family Disease History - Family Disease History Family Disease History: Diabetes: Sister, Heart Disease: Sister, Other: Mother Review of Systems - Review of Systems Constitutional: reports: No Symptoms Eyes: reports: No Symptoms HENT: reports: No Symptoms Neck: reports: No Symptoms Cardiovascular: reports: No Symptoms Respiratory: reports: No Symptoms Gastrointestinal: reports: No Symptoms Genitourinary: reports: No Symptoms Musculoskeletal: reports: Other Integumentary: reports: Erythema, Wound Neurological: reports: No Symptoms Endocrine: reports: No Symptoms Hematology/Lymphatic: reports: No Symptoms Psychiatric: reports: No Symptoms Physical Exam Vital Signs: Vital Signs Temperature 98.2 F 12/28/18 06:00 Pulse Rate 62 12/28/18 06:00 Respiratory Rate 20 12/28/18 06:00 Blood Pressure 132/69 12/28/18 06:00 O2 Sat by Pulse Oximetry (%) 98 12/27/18 20:00 Constitutional: Yes: No Distress, Calm Neck: Yes: Supple, Trachea Midline Cardiovascular: Yes: Regular Rate and Rhythm Respiratory: Yes: Regular, CTA Bilaterally Gastrointestinal: Yes: Normal Bowel Sounds, Soft Musculoskeletal: Yes: WNL Extremities: Yes: Other (necrotic ulcer on the heel,foul smell with discharge) Wound/Incision: Yes: Dressing Removed, Other (necrotic ulcer on the heel) Neurological: Yes: Alert, Oriented Psychiatric: Yes: Alert, Oriented Labs: CBC, BMP 12/28/18 06:30 12/28/18 06:30 Imaging - Results Chest X-ray: Report Reviewed, Image Reviewed MRI: Report Reviewed, Image Reviewed Assessment/Plan 78 yof with PMHx of ESRD on HD (T,Th,S), HTN, HLD, PVD (s/p left TMA/flap), admitted with Left heel infection concerning for abscess +/- osteomyelitis. -Left heel infection, suspicious for abscess, r/o osteomyelitis -PVD -s/p Left TMA/flap surgery -ESRD on HD -HTN -HLD looking at the wound i am leaning towards infection and osteo,patient going for imaging study plan will continue abx await for imaging studies await for cx report rest as per the team wound care
--- NOTE | 2018-12-28 14:01 | CONSULT ---
Consult - text type - Consultation Consultation Note: Renal follow up for ESRD on HD This is a 78 year old woman with hx of ESRD on HD (TTS, PVD s/ p TMA 09/2018, HTN, DM, hyperlipidemia who presented with left heel wound. Pt reports wound has been itching and had become foul smelling. Last dialysis was Monday w/o complication. No chest pain, sob, abd pain, fever, chlls, N/V/D, leg swelling. Tolerating oral diet. MRI showed soft tissue swelling in left foot and possible early osteomyelitis. PMhx: as above Allergies: NKDA Family hx: NC Social Hx: No T/A/D ROS: as per HPI Home Medications Medication Instructions Recorded Amlodipine Besylate [Norvasc -] 10 mg PO DAILY 08/02/14 Atorvastatin Ca [Lipitor] 10 mg PO HS 03/29/17 Sevelamer Carbonate [Renvela -] 800 mg PO TID 03/29/17 Acetaminophen [Tylenol .Regular 650 mg PO Q4H PRN tablet 08/06/18 Strength -] Clopidogrel Bisulfate [Clopidogrel] 75 mg PO DAILY #30 tablet 08/06/18 Calcium Acetate [Phoslo -] 667 mg PO TID 08/23/18 Ferrous Sulfate 325 mg PO DAILY 08/23/18 Labetalol HCl [Normodyne -] 300 mg PO TID tablet 09/17/18 Sennosides [Senna -] 2 tab PO HS tablet 09/17/18 Vital Signs Temperature 98.2 F 12/28/18 06:00 Pulse Rate 62 12/28/18 06:00 Respiratory Rate 20 12/28/18 06:00 Blood Pressure 132/69 12/28/18 06:00 O2 Sat by Pulse Oximetry (%) 98 12/27/18 20:00 Intake & Output 12/25/18 12/26/18 12/27/18 12/28/18 23:59 23:59 23:59 23:59 Intake Total 580 Balance 580 Weight 70.76 kg 62.596 kg NAD awake and alert neck supple, no JVD RRR, no M/R CTA, no rales or wheeze soft NT/ND trace LE edema, left foot in dressing CBC, BMP 12/28/18 06:30 12/28/18 06:30 Current Medications Acetaminophen (Tylenol -) 650 mg PO Q4H PRN PRN Reason: FEVER Last Admin: 12/28/18 10:34 Dose: 650 mg Amlodipine Besylate (Norvasc -) 10 mg PO DAILY [facility] Last Admin: 12/28/18 10:38 Dose: 10 mg Atorvastatin Calcium (Lipitor -) 10 mg PO HS [facility] Last Admin: 12/27/18 22:03 Dose: 10 mg Clopidogrel Bisulfate (Plavix -) 75 mg PO DAILY [facility] Last Admin: 12/28/18 10:36 Dose: 75 mg Collagenase (Santyl -) 1 applic TP DAILY [facility]; Protocol Ferrous Sulfate (Feosol -) 325 mg PO DAILY [facility] Last Admin: 12/28/18 10:39 Dose: 325 mg Heparin Sodium (Porcine) (Heparin -) 5,000 unit SQ TID [facility] Last Admin: 12/28/18 05:39 Dose: 5,000 unit Piperacillin Sod/Tazobactam (Sod 2.25 gm/ Dextrose) 50 mls @ 100 mls/hr IVPB Q8H-IV [facility]; Protocol Labetalol HCl (Normodyne -) 300 mg PO TID [facility] Last Admin: 12/28/18 05:39 Dose: 300 mg Senna (Senna -) 2 tab PO HS [facility] Last Admin: 12/27/18 22:03 Dose: 2 tab Sevelamer Carbonate (Renvela -) 800 mg PO TIDCM [facility] Last Admin: 12/28/18 12:23 Dose: 800 mg 78 year old woman with hx of ESRD on HD (TTS, PVD s/p TMA 2018, HTN, DM, hyperlipidemia who presented with left heel wound. Pt reports wound has been itching and had become foul smelling. #LE wound #ESRD on HD #DM #PVD #Hypertension No acute need for [employer] today, will plan for next dialysis tomorrow Renal diet, 1.2L fluid restriction Vascular/Podiatry/ID follow up Continue antibiotics as per ID continue renvela with meals, trend phos continue amlodipne Thank you Will follow Asa Smith DO
[2018-12-28] MEDS ORDERED: SODIUM CHLORIDE 250 ML IV PRN ×2 (14:11)
--- NOTE | 2018-12-28 16:08 | CONSULT ---
Consult Consult Specialty:: Podiatry Reason for Consultation:: Infected left heel. Granulating amputation site Left. - History of Present Illness History of Present Illness: Patient [facility] home from [facility]. Stopped offloading heel and now has a infected necrotic left heel. S/P amputation left forefoot granulating well. - History Source History Provided By: Patient, Family Member, Medical Record, Caregiver - Past Medical History Cardio/Vascular: Yes: HTN, Hyperlipdemia Gastrointestinal: Yes: GERD Renal/: Yes: Renal Failure, Hemodialysis ...: No Endocrine: Yes: Diabetes Mellitus - Past Surgical History Past Surgical History: Yes: AV Fistula/Graft, Hysterectomy, Joint Replacement, Oopherectomy - Alcohol/Substance Use Hx Alcohol Use: No History of Substance Use: reports: None - Smoking History Smoking history: Never smoked Have you smoked in the past 12 months: No Aproximately how many cigarettes per day: 0 - Social History Usual Living Arrangement: With Child ADL: Support Services History of Recent Travel: No Home Medications - Allergies Allergies/Adverse Reactions: Allergies Allergy/AdvReac Type Severity Reaction Status Date / Time No Known Drug Allergies Allergy Verified 09/06/18 10:08 - Home Medications Home Medications: Ambulatory Orders Amlodipine Besylate [Norvasc -] 10 mg PO DAILY 08/02/14 Atorvastatin Ca [Lipitor] 10 mg PO HS 03/29/17 Sevelamer Carbonate [Renvela -] 800 mg PO TID 03/29/17 Acetaminophen [Tylenol .Regular Strength -] 650 mg PO Q4H PRN tablet 08/06/18 Clopidogrel Bisulfate [Clopidogrel] 75 mg PO DAILY #30 tablet 08/06/18 Calcium Acetate [Phoslo -] 667 mg PO TID 08/23/18 Ferrous Sulfate 325 mg PO DAILY 08/23/18 Labetalol HCl [Normodyne -] 300 mg PO TID tablet 09/17/18 Sennosides [Senna -] 2 tab PO HS tablet 09/17/18 Family Disease History - Family Disease History Family Disease History: Diabetes: Sister, Heart Disease: Sister, Other: Mother Physical Exam Vital Signs: Vital Signs Temperature 97.8 F 12/28/18 15:00 Pulse Rate 62 12/28/18 15:00 Respiratory Rate 18 12/28/18 15:00 Blood Pressure 130/59 L 12/28/18 15:00 O2 Sat by Pulse Oximetry (%) 98 12/28/18 09:00 Extremities: Yes: Other (infected necrotic left heel, +granulating left forefoot. +pvd. -drainage, -malodor,) Labs: CBC, BMP 12/28/18 06:30 12/28/18 06:30 Assessment/Plan necrotic heel ulceration with infection granulating forefoot left Santyl to both areas of foot. IVABX as per ID. Vascular consulted. Will follow. Multiple family members including 2 daughters were present. Offload heels b/l.
--- NOTE | 2018-12-28 16:18 | PN ---
Teaching Attending Note Name of Resident: Fernando Rodriguez ATTENDING PHYSICIAN STATEMENT I saw and evaluated the patient. I reviewed the resident's note and discussed the case with the resident. I agree with the resident's findings and plan as documented with exceptions below. SUBJECTIVE: Patient seen and examined. left foot pain. OBJECTIVE: Vital Signs Period Temp Pulse Resp BP Sys/Jha Pulse Ox Last 24 Hr 97.8 F-98.2 F 61-71 18-20 122-146/59-69 97-98 Intake & Output 12/25/18 12/26/18 12/27/18 12/28/18 23:59 23:59 23:59 23:59 Intake Total 580 Balance 580 Weight 156 lb 138 lb General: lying in bed in no acute distress Chest: CTAB, no rales or wheezing Abdomen:soft, NT, ND Extremtiies: Right foot with no lesions, Left foot TMA with granulation tissue, some necrotic tissue around the edges, serous discharge, left heel boggy eschar , no fluid expressed, unable to palpate left DP or PT pulses Home Medications Medication Instructions Recorded Amlodipine Besylate [Norvasc -] 10 mg PO DAILY 08/02/14 Atorvastatin Ca [Lipitor] 10 mg PO HS 03/29/17 Sevelamer Carbonate [Renvela -] 800 mg PO TID 03/29/17 Acetaminophen [Tylenol .Regular 650 mg PO Q4H PRN tablet 08/06/18 Strength -] Clopidogrel Bisulfate [Clopidogrel] 75 mg PO DAILY #30 tablet 08/06/18 Calcium Acetate [Phoslo -] 667 mg PO TID 08/23/18 Ferrous Sulfate 325 mg PO DAILY 08/23/18 Labetalol HCl [Normodyne -] 300 mg PO TID tablet 09/17/18 Sennosides [Senna -] 2 tab PO HS tablet 09/17/18 Active Medications Acetaminophen (Tylenol -) 650 mg PO Q4H PRN PRN Reason: FEVER Last Admin: 12/28/18 10:34 Dose: 650 mg Amlodipine Besylate (Norvasc -) 10 mg PO DAILY [facility] Last Admin: 12/28/18 10:38 Dose: 10 mg Atorvastatin Calcium (Lipitor -) 10 mg PO HS [facility] Last Admin: 12/27/18 22:03 Dose: 10 mg Clopidogrel Bisulfate (Plavix -) 75 mg PO DAILY [facility] Last Admin: 12/28/18 10:36 Dose: 75 mg Collagenase (Santyl -) 1 applic TP DAILY [facility]; Protocol Epoetin Kin (Epogen -) 10,000 unit IVPUSH ONCE ONE Stop: 12/29/18 06:01 Ferrous Sulfate (Feosol -) 325 mg PO DAILY [facility] Last Admin: 12/28/18 10:39 Dose: 325 mg Heparin Sodium (Porcine) (Heparin -) 5,000 unit SQ TID [facility] Last Admin: 12/28/18 05:39 Dose: 5,000 unit Piperacillin Sod/Tazobactam (Sod 2.25 gm/ Dextrose) 50 mls @ 100 mls/hr IVPB Q8H-IV [facility]; Protocol Sodium Chloride (Normal Saline -) 250 mls @ 3,000 mls/hr IV PRN PRN PRN Reason: Hypotension during Dialysis Stop: 12/29/18 14:11 Sodium Chloride (Normal Saline -) 250 mls @ 3,000 mls/hr IV PRN PRN PRN Reason: Hypotension during Dialysis Stop: 12/29/18 14:11 Labetalol HCl (Normodyne -) 300 mg PO TID [facility] Last Admin: 12/28/18 05:39 Dose: 300 mg Senna (Senna -) 2 tab PO HS [facility] Last Admin: 12/27/18 22:03 Dose: 2 tab Sevelamer Carbonate (Renvela -) 800 mg PO TIDCM [facility] Last Admin: 12/28/18 12:23 Dose: 800 mg Laboratory Results - last 24 hr 12/28/18 12/28/18 12/28/18 06:30 06:30 06:30 WBC 12.7 H RBC 3.43 L Hgb 9.9 L Hct 30.8 L MCV 89.9 MCH 28.9 MCHC 32.1 RDW 17.2 H Plt Count 270 MPV 7.9 D Absolute Neuts (auto) 9.7 H Neutrophils % 76.6 Lymphocytes % 14.0 Monocytes % 7.2 Eosinophils % 1.7 Basophils % 0.5 Nucleated RBC % 0 PT with INR 13.60 H INR 1.15 H PTT (Actin FS) 45.7 H Sodium 136 Potassium 3.7 Chloride 97 L Carbon Dioxide 28 Anion Gap 12 BUN 51 H Creatinine 4.8 H Est GFR (CKD-EPI)AfAm 9.31 Est GFR (CKD-EPI)NonAf 8.04 Random Glucose 71 L Calcium 9.1 Phosphorus 4.0 Magnesium 2.4 Total Bilirubin 1.4 H AST 11 L ALT 8 L Alkaline Phosphatase 101 Total Protein 7.0 Albumin 2.4 L Microbiology 12/27/18 14:55 Foot - Right Gram Stain - Final 12/27/18 12:00 Blood - Peripheral Venous Blood Culture - Preliminary NO GROWTH OBTAINED AFTER 24 HOURS, INCUBATION TO CONTINUE FOR 4 DAYS. 12/27/18 12:00 Blood - Peripheral Venous Blood Culture - Preliminary NO GROWTH OBTAINED AFTER 24 HOURS, INCUBATION TO CONTINUE FOR 4 DAYS. MRI left foot results noted CTA results noted ASSESSMENT AND PLAN: 78 yof with PMHx of ESRD on HD (T,Th,S), HTN, HLD, PVD (s/p left TMA/flap), admitted with Left heel infection concerning for abscess +/- osteomyelitis. -Left heel infection, suspicious for abscess, +/- osteomyelitis -PVD -s/p Left TMA/flap surgery -ESRD on HD -HTN -HLD -?NIDDM Plan: Zosyn/Vanco renal dosing. Follow up blood and urine cultures. ID/vascular surgery input noted, CTA reviewed. Continue plavix, follow up for additional intervention. Follow up podiatry input. ESR/CRP noted. Continue labetalol/amlodipine. HD per renal. Sevelamer/Iron ?NIDDM. Last A1c 4.5, monitor for now. DVTPPX heparin Dispo pending clinical improvement. Plan discussed with patient and nursing in detail, all questions answered.
[2018-12-28] MEDS: COLLAGENASE CLOSTRIDIUM HIST. 30 GRAMS TUBE TP SCH (16:26)
[2018-12-28] MEDS: SENNOSIDES 8.6MG TABLET (FP) PO SCH (21:25)
[2018-12-28] MEDS: ATORVASTATIN CA 10 MG TABLET (FP) PO SCH (21:25)
[2018-12-29] MEDS ORDERED: PIPERACILLIN/TAZOBACTAM 2.25 GM VIAL IVPB ONE ×3 (00:53→17:16)
[2018-12-29] MEDS ORDERED: DEXTROSE 5%-WATER - 50 ML IVPB ONE ×3 (00:54→17:16)
[2018-12-29] MEDS: PIPERACILLIN/TAZOB 2.25 GM 2.25 GM in DEXTROSE 5%-WATER - 50 ML IVPB SCH ×3 (01:36→20:30)
[2018-12-29] MEDS ORDERED: EPOETIN ALFA 2,000 UNIT/1 ML VIAL IVPUSH ONE (06:00)
[2018-12-29] MEDS: LABETALOL HCL 200 MG TABLET (FP) PO SCH ×3 (06:15→21:11)
[2018-12-29] MEDS: HEPARIN NA (PORCINE) 5,000 UNITS/ML 1ML VIAL SQ SCH ×3 (06:16→21:11)
[2018-12-29] MEDS: SEVELAMER CARBONATE 800 MG TAB (FP) PO SCH ×3 (08:48→19:04)
[2018-12-29 08:53] LABS: ALBUMIN 2.3 g/dl (3.4-5.0); BILIRUBIN,TOTAL 1.5 mg/dL (0.2-1); CALCIUM 9.2 mg/dL (8.5-10.1); CREATININE 5.4 mg/dL (0.55-1.3); MAGNESIUM 2.3 mg/dL (1.8-2.4); PHOSPHOROUS 4.3 mg/dL (2.5-4.9); POTASSIUM 4.2 mmol/L (3.5-5.1); TOT PROT 7.2 g/dl (6.4-8.2)
[2018-12-29 08:55] LABS: BASO % 0.3 % (0-2.0); EOS % 2.2 % (0-4.5); HEMATOCRIT 30.9 % (32.4-45.2); HEMOGLOBIN 9.9 GM/dL (10.7-15.3); LYMPH % 12.2 % (8-40); MCH 28.9 pg (25.7-33.7); MCHC 32.1 g/dl (32.0-36.0); MEAN CELL VOLUME 89.9 fl (80-96); MEAN PLT VOLUME 7.8 fl (7.5-11.1); MONO % 8.2 % (3.8-10.2); NEUT % 77.1 % (42.8-82.8); PLATELET COUNT 287 K/MM3 (134-434); RBC 3.44 M/mm3 (3.60-5.2); RDW 17.3 % (11.6-15.6); WHITE BLOOD COUNT 12.3 K/mm3 (4.0-10.0)
[2018-12-29] MEDS: amLODIPine BESYLATE 10 MG TABLET (FP) PO SCH (09:28)
[2018-12-29] MEDS: FERROUS SO4 325 MG TABLET (FP) PO SCH (09:28)
[2018-12-29] MEDS: COLLAGENASE CLOSTRIDIUM HIST. 30 GRAMS TUBE TP SCH (09:28)
--- NOTE | 2018-12-29 09:37 | PN ---
Progress Note (short form) - Note Progress Note: Renal follow up for ESRD pt seen and examined at the bedside awake and alert has curtis discomfort at the heel no sob, cp abd pain, N/V/D Vital Signs Temperature 98.5 F 12/29/18 04:00 Pulse Rate 68 12/29/18 04:00 Respiratory Rate 20 12/29/18 04:00 Blood Pressure 155/73 12/29/18 04:00 O2 Sat by Pulse Oximetry (%) 98 12/28/18 21:00 Intake & Output 12/26/18 12/27/18 12/28/18 12/29/18 23:59 23:59 23:59 23:59 Intake Total 1220 Balance 1220 Weight 70.76 kg 62.596 kg 65.816 kg NAD awake and alert neck supple, no JVD RRR, no M/R CTA, no rales or wheeze soft NT/ND trace LE edema, left foot in dressing, foul smelling CBC, BMP 12/29/18 07:30 12/29/18 05:30 Current Medications Acetaminophen (Tylenol -) 650 mg PO Q4H PRN PRN Reason: FEVER Last Admin: 12/28/18 10:34 Dose: 650 mg Amlodipine Besylate (Norvasc -) 10 mg PO DAILY [facility] Last Admin: 12/29/18 09:28 Dose: 10 mg Atorvastatin Calcium (Lipitor -) 10 mg PO HS [facility] Last Admin: 12/28/18 21:25 Dose: 10 mg Clopidogrel Bisulfate (Plavix -) 75 mg PO DAILY [facility] Last Admin: 12/28/18 10:36 Dose: 75 mg Collagenase (Santyl -) 1 applic TP DAILY [facility]; Protocol Last Admin: 12/29/18 09:28 Dose: 1 applic Epoetin Kin (Epogen -) 10,000 unit IVPUSH ONCE ONE Stop: 12/29/18 06:01 Ferrous Sulfate (Feosol -) 325 mg PO DAILY [facility] Last Admin: 12/29/18 09:28 Dose: 325 mg Heparin Sodium (Porcine) (Heparin -) 5,000 unit SQ TID [facility] Last Admin: 12/29/18 06:16 Dose: 5,000 unit Piperacillin Sod/Tazobactam (Sod 2.25 gm/ Dextrose) 50 mls @ 100 mls/hr IVPB Q8H-IV [facility]; Protocol Last Admin: 12/29/18 09:29 Dose: 100 mls/hr Sodium Chloride (Normal Saline -) 250 mls @ 3,000 mls/hr IV PRN PRN PRN Reason: Hypotension during Dialysis Stop: 12/29/18 14:11 Sodium Chloride (Normal Saline -) 250 mls @ 3,000 mls/hr IV PRN PRN PRN Reason: Hypotension during Dialysis Stop: 12/29/18 14:11 Labetalol HCl (Normodyne -) 300 mg PO TID [facility] Last Admin: 12/29/18 06:15 Dose: Not Given Senna (Senna -) 2 tab PO HS [facility] Last Admin: 12/28/18 21:25 Dose: 2 tab Sevelamer Carbonate (Renvela -) 800 mg PO TIDCM [facility] Last Admin: 12/29/18 08:48 Dose: 800 mg 78 year old woman with hx of ESRD on HD (TTS, PVD s/p TMA 2018, HTN, DM, hyperlipidemia who presented with left heel wound. Pt reports wound has been itching and had become foul smelling. #LE wound #ESRD on HD #DM #PVD #Hypertension dialysis today with UF as tolerated Renal diet, 1.2L fluid restriction Vascular/Podiatry/ID follow up CTA of LE results noted continue wound care f/u cultures Continue antibiotics as per ID continue renvela with meals, trend phos continue amloditee Smith DO
--- NOTE | 2018-12-29 09:59 | PN ---
Physical Exam: SUBJECTIVE: Patient seen and examined, left foot pain well controlled, no complaints. OBJECTIVE: Vital Signs Period Temp Pulse Resp BP Sys/Jha Pulse Ox Last 24 Hr 97.8 F-98.5 F 61-72 18-20 129-159/59-105 96-98 Intake & Output 12/26/18 12/27/18 12/28/18 12/29/18 23:59 23:59 23:59 23:59 Intake Total 1220 Balance 1220 Weight 156 lb 138 lb 145 lb 1.6 oz GENERAL: lying in bed, no acute distress Chest: decreased effort, no rales or wheezing Abdomen:Soft, NT, obese Extremities: Left foot TMA with granulation tissue, with some sloughing and foul smelling discharge, Left heel eschar with with scant discharge, unable to palpate DP/PT pulses, right foot with no lesions. Laboratory Results - last 24 hr 12/28/18 12/29/18 12/29/18 21:31 05:30 06:35 WBC RBC Hgb Hct MCV MCH MCHC RDW Plt Count MPV Absolute Neuts (auto) Neutrophils % Lymphocytes % Monocytes % Eosinophils % Basophils % Nucleated RBC % Sodium 135 L Potassium 4.2 Chloride 98 Carbon Dioxide 23 Anion Gap 14 BUN 62 H Creatinine 5.4 H Est GFR (CKD-EPI)AfAm 8.08 Est GFR (CKD-EPI)NonAf 6.97 POC Glucometer 147 59 Random Glucose 71 L Calcium 9.2 Phosphorus 4.3 Magnesium 2.3 Total Bilirubin 1.5 H AST 12 L ALT 9 L Alkaline Phosphatase 98 Total Protein 7.2 Albumin 2.3 L Random Vancomycin 12/29/18 12/29/18 07:30 07:30 WBC 12.3 H RBC 3.44 L Hgb 9.9 L Hct 30.9 L MCV 89.9 MCH 28.9 MCHC 32.1 RDW 17.3 H Plt Count 287 MPV 7.8 Absolute Neuts (auto) 9.5 H Neutrophils % 77.1 Lymphocytes % 12.2 Monocytes % 8.2 Eosinophils % 2.2 Basophils % 0.3 Nucleated RBC % 0 Sodium Potassium Chloride Carbon Dioxide Anion Gap BUN Creatinine Est GFR (CKD-EPI)AfAm Est GFR (CKD-EPI)NonAf POC Glucometer Random Glucose Calcium Phosphorus Magnesium Total Bilirubin AST ALT Alkaline Phosphatase Total Protein Albumin Random Vancomycin 9.5 L Active Medications Generic Name Dose Route Start Last Admin Trade Name Freq PRN Reason Stop Dose Admin Acetaminophen 650 mg 12/27/18 16:15 12/28/18 10:34 Tylenol - PO 650 mg Q4H PRN Administration FEVER Amlodipine Besylate 10 mg 12/28/18 10:00 12/29/18 09:28 Norvasc - PO 10 mg DAILY [facility] Administration Atorvastatin Calcium 10 mg 12/27/18 22:00 12/28/18 21:25 Lipitor - PO 10 mg HS [facility] Administration Clopidogrel Bisulfate 75 mg 12/27/18 16:30 12/28/18 10:36 Plavix - PO 75 mg DAILY [facility] Administration Collagenase 1 applic 12/28/18 11:00 12/29/18 09:28 Santyl - TP 1 applic DAILY [facility] Administration Protocol Epoetin Kin 10,000 unit 12/29/18 06:00 Epogen - IVPUSH 12/29/18 06:01 ONCE ONE Ferrous Sulfate 325 mg 12/28/18 10:00 12/29/18 09:28 Feosol - PO 325 mg DAILY [facility] Administration Heparin Sodium (Porcine) 5,000 unit 12/27/18 22:00 12/29/18 06:16 Heparin - SQ 5,000 unit TID [facility] Administration Piperacillin Sod/Tazobactam 50 mls @ 100 mls/hr 12/28/18 18:00 12/29/18 09:29 Sod 2.25 gm/ Dextrose IVPB 100 mls/hr Q8H-IV [facility] Administration Protocol Sodium Chloride 250 mls @ 3,000 mls/hr 12/28/18 14:11 Normal Saline - IV 12/29/18 14:11 PRN PRN Hypotension during Dialysis Sodium Chloride 250 mls @ 3,000 mls/hr 12/28/18 14:11 Normal Saline - IV 12/29/18 14:11 PRN PRN Hypotension during Dialysis Labetalol HCl 300 mg 12/27/18 22:00 12/29/18 06:15 Normodyne - PO Not Given TID [facility] Senna 2 tab 12/27/18 22:00 12/28/18 21:25 Senna - PO 2 tab HS [facility] Administration Sevelamer Carbonate 800 mg 12/27/18 17:30 12/29/18 08:48 Renvela - PO 800 mg TIDCM [facility] Administration Microbiology 12/27/18 14:55 Foot - Right Gram Stain - Final 12/27/18 12:00 Blood - Peripheral Venous Blood Culture - Preliminary NO GROWTH OBTAINED AFTER 24 HOURS, INCUBATION TO CONTINUE FOR 4 DAYS. 12/27/18 12:00 Blood - Peripheral Venous Blood Culture - Preliminary NO GROWTH OBTAINED AFTER 24 HOURS, INCUBATION TO CONTINUE FOR 4 DAYS. ASSESSMENT/PLAN: 78 yof with PMHx of ESRD on HD (T,Th,S), HTN, HLD, PVD (s/p left TMA/flap), admitted with Left heel infection concerning for abscess +/- osteomyelitis. -Left heel infection, suspicious for abscess, +/- osteomyelitis -PVD -s/p Left TMA/flap surgery -ESRD on HD -HTN -HLD -?NIDDM Plan: Zosyn/Vanco renal dosing. Follow up blood and wound cultures. ID/vascular surgery input noted, CTA reviewed. Continue plavix, follow up for additional intervention. Follow up podiatry input. ESR/CRP noted. Continue labetalol/amlodipine. HD per renal. Sevelamer/Iron ?NIDDM. Last A1c 4.5, monitor for now. Place on BGM for now. DVTPPX heparin Dispo pending clinical improvement. Plan discussed with patient and nursing in detail, all questions answered. Visit type - Emergency Visit Emergency Visit: Yes ED Registration Date: 12/27/18 Care time: The patient presented to the Emergency Department on the above date and was hospitalized for further evaluation of their emergent condition. - New Patient This patient is new to me today: No - Critical Care Critical Care patient: No - Discharge Referral Referred to [facility] No
[2018-12-29] MEDS: CLOPIDOGREL BISULFATE 75 MG TABLET (FP) PO SCH (10:47)
--- NOTE | 2018-12-29 14:17 | PN ---
Progress Note, Physician History of Present Illness: Pt seen and examined. Events noted, labs/imaging reviewed. She is currently alert, without distress. Denies having any specific complaints. - Current Medication List Current Medications: Active Medications Acetaminophen (Tylenol -) 650 mg PO Q4H PRN PRN Reason: FEVER Last Admin: 12/28/18 10:34 Dose: 650 mg Amlodipine Besylate (Norvasc -) 10 mg PO DAILY [facility] Last Admin: 12/29/18 09:28 Dose: 10 mg Atorvastatin Calcium (Lipitor -) 10 mg PO HS NOE Last Admin: 12/28/18 21:25 Dose: 10 mg Clopidogrel Bisulfate (Plavix -) 75 mg PO DAILY [facility] Last Admin: 12/29/18 10:47 Dose: 75 mg Collagenase (Santyl -) [address] [facility]; Protocol Last Admin: 12/29/18 09:28 Dose: 1 applic Epoetin Kin (Epogen -) 10,000 unit IVPUSH ONCE ONE Stop: 12/29/18 06:01 Ferrous Sulfate (Feosol -) 325 mg PO DAILY [facility]E Last Admin: 12/29/18 09:28 Dose: 325 mg Heparin Sodium (Porcine) (Heparin -) 5,000 unit SQ TID [facility] Last Admin: 12/29/18 06:16 Dose: 5,000 unit Piperacillin Sod/Tazobactam (Sod 2.25 gm/ Dextrose) 50 mls @ 100 mls/hr IVPB Q8H-IV [facility]; Protocol Last Admin: 12/29/18 09:29 Dose: 100 mls/hr Sodium Chloride (Normal Saline -) 250 mls @ 3,000 mls/hr IV PRN PRN PRN Reason: Hypotension during Dialysis Stop: 12/29/18 14:11 Sodium Chloride (Normal Saline -) 250 mls @ 3,000 mls/hr IV PRN PRN PRN Reason: Hypotension during Dialysis Stop: 12/29/18 14:11 Labetalol HCl (Normodyne -) 300 mg PO TID [facility] Last Admin: 12/29/18 06:15 Dose: Not Given Senna (Senna -) 2 tab PO HS [facility]E Last Admin: 12/28/18 21:25 Dose: 2 tab Sevelamer Carbonate (Renvela -) [address] [facility] Last Admin: 12/29/18 11:43 Dose: 800 mg - Objective Vital Signs: Vital Signs Temperature 98.2 F 12/29/18 09:46 Pulse Rate 72 12/29/18 09:46 Respiratory Rate 20 12/29/18 09:46 Blood Pressure 142/105 H 12/29/18 09:46 O2 Sat by Pulse Oximetry (%) 96 12/29/18 09:00 Constitutional: Yes: No Distress, Calm Cardiovascular: Yes: Regular Rate and Rhythm Respiratory: Yes: Regular Gastrointestinal: Yes: Normal Bowel Sounds, Soft Wound/Incision: Yes: Other (Lt TMA, Lt heel ulcer with mild drainage) Neurological: Yes: Alert Labs: CBC, BMP 12/29/18 07:30 12/29/18 05:30 INR, PTT INR 1.15 (0.83-1.09) H 12/28/18 06:30 Microbiology 12/27/18 12:00 Blood - Peripheral Venous Blood Culture - Preliminary NO GROWTH OBTAINED AFTER 48 HOURS, INCUBATION TO CONTINUE FOR 3 DAYS. 12/27/18 12:00 Blood - Peripheral Venous Blood Culture - Preliminary NO GROWTH OBTAINED AFTER 48 HOURS, INCUBATION TO CONTINUE FOR 3 DAYS. 12/27/18 14:55 Foot - Right Gram Stain - Final 12/27/18 14:55 Foot - Right Wound Culture - Preliminary Non Lactose Fermenting Gnb Presumptive Mssa (Pbp2a Neg) - ....Imaging MRI: Report Reviewed Other: Report Reviewed Problem List - Problems (1) ESRD (end stage renal disease) Code(s): N18.6 - END STAGE RENAL DISEASE (2) Infection of left foot Code(s): L08.9 - LOCAL INFECTION OF THE SKIN AND SUBCUTANEOUS TISSUE, UNSP (3) AVF (arteriovenous fistula) Code(s): I77.0 - ARTERIOVENOUS FISTULA, ACQUIRED (4) ESRD (end stage renal disease) on dialysis Code(s): N18.6 - END STAGE RENAL DISEASE; Z99.2 - DEPENDENCE ON RENAL DIALYSIS (5) Foot ulcer Code(s): L97.509 - NON-PRESSURE CHRONIC ULCER OTH PRT UNSP FOOT W UNSP SEVERITY Qualifiers: Laterality: left Non-pressure ulcer stage: unspecified non-pressure ulcer stage Qualified Code(s): L97.529 - Non-pressure chronic ulcer of other part of left foot with unspecified severity (6) Wound infection Code(s): T14.8XXA - OTHER INJURY OF UNSPECIFIED BODY REGION, INITIAL ENCOUNTER; L08.9 - LOCAL INFECTION OF THE SKIN AND SUBCUTANEOUS TISSUE, UNSP (7) Anemia Code(s): D64.9 - ANEMIA, UNSPECIFIED Qualifiers: Anemia type: due to chronic kidney disease Chronic kidney disease stage: on chronic dialysis Qualified Code(s): N18.6 - End stage renal disease; D63.1 - Anemia in chronic kidney disease; Z99.2 - Dependence on renal dialysis Assessment/Plan Polymicrobial Infected Lt heel ulcer/Possible OM PVD ESRD on HD s/p Lt TMA/flap HTN HLD -- wbc mildly elevated, esr/crp elevated -- CTA results noted -- continue Zosyn/Vancomycin , Vancomycin post HD, follow up culture isolates -- Vascular following -- continue wound care
[2018-12-29] MEDS ORDERED: EPOETIN ALFA 10,000 UNIT/1 ML VIAL IVPUSH ONE (16:15)
[2018-12-29] MEDS: ACETAMINOPHEN 325 MG TABLET (FP) PO PRN (21:10)
[2018-12-29] MEDS: ATORVASTATIN CA 10 MG TABLET (FP) PO SCH (21:11)
[2018-12-29] MEDS: SENNOSIDES 8.6MG TABLET (FP) PO SCH (21:11)
[2018-12-30] MEDS ORDERED: DEXTROSE 5%-WATER - 50 ML IVPB ONE ×3 (01:33→18:01)
[2018-12-30] MEDS ORDERED: PIPERACILLIN/TAZOBACTAM 2.25 GM VIAL IVPB ONE ×3 (01:33→18:01)
[2018-12-30] MEDS: PIPERACILLIN/TAZOB 2.25 GM 2.25 GM in DEXTROSE 5%-WATER - 50 ML IVPB SCH ×3 (01:41→18:03)
[2018-12-30] MEDS: LABETALOL HCL 200 MG TABLET (FP) PO SCH ×3 (05:52→22:29)
[2018-12-30] MEDS: HEPARIN NA (PORCINE) 5,000 UNITS/ML 1ML VIAL SQ SCH ×3 (05:52→22:29)
[2018-12-30] MEDS: INSULIN SLIDING SCALE (NOVOLOG) 1 VIAL SQ SCH ×3 (06:47→17:58)
[2018-12-30 07:42] LABS: BASO % 0.6 % (0-2.0); EOS % 1.6 % (0-4.5); HEMATOCRIT 32.6 % (32.4-45.2); HEMOGLOBIN 10.5 GM/dL (10.7-15.3); LYMPH % 10.3 % (8-40); MCH 29.2 pg (25.7-33.7); MCHC 32.1 g/dl (32.0-36.0); MEAN CELL VOLUME 90.8 fl (80-96); MEAN PLT VOLUME 7.3 fl (7.5-11.1); MONO % 7.9 % (3.8-10.2); NEUT % 79.6 % (42.8-82.8); PLATELET COUNT 272 K/MM3 (134-434); RBC 3.59 M/mm3 (3.60-5.2); RDW 17.5 % (11.6-15.6); WHITE BLOOD COUNT 10.7 K/mm3 (4.0-10.0)
[2018-12-30 08:23] LABS: CALCIUM 9.2 mg/dL (8.5-10.1); CREATININE 2.9 mg/dL (0.55-1.3); POTASSIUM 3.7 mmol/L (3.5-5.1)
[2018-12-30] MEDS: SEVELAMER CARBONATE 800 MG TAB (FP) PO SCH ×3 (08:59→17:55)
--- NOTE | 2018-12-30 09:56 | PN ---
Progress Note (short form) - Note Progress Note: FUV right heel and forefoot. Patient resting comfortably. vss, +e.coli, +staph aureus, +dry eschar left heel, +granulating forefoot wound, - mal odor Infected left foot PVD Awaiting vascular. Having a CTA done. Will follow. Bhanuyl to both wounds.
[2018-12-30] MEDS: COLLAGENASE CLOSTRIDIUM HIST. 30 GRAMS TUBE TP SCH (10:59)
[2018-12-30] MEDS: FERROUS SO4 325 MG TABLET (FP) PO SCH (10:59)
[2018-12-30] MEDS: CLOPIDOGREL BISULFATE 75 MG TABLET (FP) PO SCH (10:59)
[2018-12-30] MEDS: amLODIPine BESYLATE 10 MG TABLET (FP) PO SCH (10:59)
--- NOTE | 2018-12-30 12:31 | PN ---
Physical Exam: SUBJECTIVE: Patient seen and examined, left foot itching. no complaints otherwise. OBJECTIVE: Vital Signs Period Temp Pulse Resp BP Sys/Jha Pulse Ox Last 24 Hr 98.1 F-98.3 F 60-77 18-20 133-177/50-109 Intake & Output 12/27/18 12/28/18 12/29/18 12/30/18 23:59 23:59 23:59 23:59 Intake Total 1220 365 150 Balance 1220 365 150 Weight 156 lb 138 lb 145 lb 1.6 oz 131 lb 5 oz GENERAL: sitting in bed in no acute distress Chest: CTAB, no rales or wheezing Abdomen:soft, NT, ND, pos bowel sounds Extremities: left foot with unchanged TMA wound with granulation tissue with sloughing and clear foul smelling discharge, Left heel eschar, non tender Psych: pleasant, co-operative CVS: S1S2 regular Laboratory Results - last 24 hr 12/29/18 12/30/18 12/30/18 21:09 05:52 07:00 WBC 10.7 H RBC 3.59 L Hgb 10.5 L Hct 32.6 MCV 90.8 MCH 29.2 MCHC 32.1 RDW 17.5 H Plt Count 272 MPV 7.3 L Absolute Neuts (auto) 8.5 H Neutrophils % 79.6 Lymphocytes % 10.3 Monocytes % 7.9 Eosinophils % 1.6 Basophils % 0.6 Nucleated RBC % 0 Sodium Potassium Chloride Carbon Dioxide Anion Gap BUN Creatinine Est GFR (CKD-EPI)AfAm Est GFR (CKD-EPI)NonAf POC Glucometer 106 66 Random Glucose Hemoglobin A1c % Calcium 12/30/18 12/30/18 12/30/18 07:00 07:00 11:38 WBC RBC Hgb Hct MCV MCH MCHC RDW Plt Count MPV Absolute Neuts (auto) Neutrophils % Lymphocytes % Monocytes % Eosinophils % Basophils % Nucleated RBC % Sodium 138 Potassium 3.7 Chloride 99 Carbon Dioxide 29 Anion Gap 9 BUN 21 H Creatinine 2.9 H Est GFR (CKD-EPI)AfAm 17.13 Est GFR (CKD-EPI)NonAf 14.78 POC Glucometer 99 Random Glucose 73 L Hemoglobin A1c % < 4.2 L Calcium 9.2 Active Medications Generic Name Dose Route Start Last Admin Trade Name Freq PRN Reason Stop Dose Admin Acetaminophen 650 mg 12/27/18 16:15 12/29/18 21:10 Tylenol - PO 650 mg Q4H PRN Administration FEVER Amlodipine Besylate 10 mg 12/28/18 10:00 12/30/18 10:59 Norvasc - PO 10 mg DAILY NOE Administration Atorvastatin Calcium 10 mg 12/27/18 22:00 12/29/18 21:11 Lipitor - PO 10 mg HS NOE Administration Clopidogrel Bisulfate 75 mg 12/27/18 16:30 12/30/18 10:59 Plavix - PO 75 mg DAILY NOE Administration Collagenase 1 applic 12/28/18 11:00 12/30/18 10:59 Santyl - TP 1 applic DAILY NOE Administration Protocol Ferrous Sulfate 325 mg 12/28/18 10:00 12/30/18 10:59 Feosol - PO 325 mg DAILY NOE Administration Heparin Sodium (Porcine) 5,000 unit 12/27/18 22:00 12/30/18 05:52 Heparin - SQ 5,000 unit TID NOE Administration Piperacillin Sod/Tazobactam 50 mls @ 100 mls/hr 12/28/18 18:00 12/30/18 10:59 Sod 2.25 gm/ Dextrose IVPB 100 mls/hr Q8H-IV NOE Administration Protocol Insulin Aspart 1 vial 12/30/18 07:00 12/30/18 06:47 Novolog Vial Sliding Scale - SQ Not Given TIDAC [facility] Protocol Labetalol HCl 300 mg 12/27/18 22:00 12/30/18 05:52 Normodyne - PO 300 mg TID NOE Administration Senna 2 tab 12/27/18 22:00 12/29/18 21:11 Senna - PO 2 tab HS NOE Administration Sevelamer Carbonate 800 mg 12/27/18 17:30 12/30/18 10:59 Renvela - PO 800 mg TIDCM NOE Administration Microbiology 12/27/18 12:00 Blood - Peripheral Venous Blood Culture - Preliminary NO GROWTH OBTAINED AFTER 72 HOURS, INCUBATION TO CONTINUE FOR 2 DAYS. 12/27/18 12:00 Blood - Peripheral Venous Blood Culture - Preliminary NO GROWTH OBTAINED AFTER 72 HOURS, INCUBATION TO CONTINUE FOR 2 DAYS. 12/27/18 14:55 Foot - Right Gram Stain - Final 12/27/18 14:55 Foot - Right Wound Culture - Preliminary Escherichia Coli Presumptive Mssa (Pbp2a Neg) ASSESSMENT/PLAN: 78 yof with PMHx of ESRD on HD (T,Th,S), HTN, HLD, PVD (s/p left TMA/flap), admitted with Left heel infection concerning for abscess +/- osteomyelitis. -Left heel infection, suspicious for abscess, +/- osteomyelitis -PVD -s/p Left TMA/flap surgery -ESRD on HD -HTN -HLD -?NIDDM Plan: Zosyn/Vanco renal dosing. Follow up blood and wound cultures. ID/vascular surgery input noted, CTA reviewed. Continue plavix, follow up for additional intervention. Follow up podiatry input. ESR/CRP noted. Continue labetalol/amlodipine. HD per renal. Sevelamer/Iron ?NIDDM. Last A1c 4.5, monitor for now. Place on BGM for now. DVTPPX heparin Dispo pending clinical improvement. Plan discussed with patient and nursing in detail, all questions answered. Visit type - Emergency Visit Emergency Visit: Yes ED Registration Date: 12/27/18 Care time: The patient presented to the Emergency Department on the above date and was hospitalized for further evaluation of their emergent condition. - New Patient This patient is new to me today: No - Critical Care Critical Care patient: No - Discharge Referral Referred to [facility] Med P.C.: No
--- NOTE | 2018-12-30 13:36 | PN ---
Progress Note, Physician - Current Medication List Current Medications: Active Medications Acetaminophen (Tylenol -) 650 mg PO Q4H PRN PRN Reason: FEVER Last Admin: 12/29/18 21:10 Dose: 650 mg Amlodipine Besylate (Norvasc -) 10 mg PO DAILY [facility] Last Admin: 12/30/18 10:59 Dose: 10 mg Atorvastatin Calcium (Lipitor -) 10 mg PO HS NOE Last Admin: 12/29/18 21:11 Dose: 10 mg Clopidogrel Bisulfate (Plavix -) 75 mg PO DAILY NOE Last Admin: 12/30/18 10:59 Dose: 75 mg Collagenase (Santyl -) 1 applic TP DAILY [facility]; Protocol Last Admin: 12/30/18 10:59 Dose: 1 applic Ferrous Sulfate (Feosol -) 325 mg PO DAILY [facility] Last Admin: 12/30/18 10:59 Dose: 325 mg Heparin Sodium (Porcine) (Heparin -) 5,000 unit SQ TID [facility] Last Admin: 12/30/18 05:52 Dose: 5,000 unit Piperacillin Sod/Tazobactam (Sod 2.25 gm/ Dextrose) 50 mls @ 100 mls/hr IVPB Q8H-IV [facility]; Protocol Last Admin: 12/30/18 10:59 Dose: 100 mls/hr Insulin Aspart (Novolog Vial Sliding Scale -) 1 vial SQ TIDAC [facility]; Protocol Last Admin: 12/30/18 06:47 Dose: Not Given Labetalol HCl (Normodyne -) 300 mg PO TID [facility] Last Admin: 12/30/18 05:52 Dose: 300 mg Senna (Senna -) 2 tab PO HS [facility] Last Admin: 12/29/18 21:11 Dose: 2 tab Sevelamer Carbonate (Renvela -) 800 mg PO TIDCM [facility] Last Admin: 12/30/18 10:59 Dose: 800 mg - Objective Vital Signs: Vital Signs Temperature 98.1 F 12/30/18 07:03 Pulse Rate 71 12/30/18 07:03 Respiratory Rate 20 12/30/18 07:03 Blood Pressure 173/76 H 12/30/18 07:03 O2 Sat by Pulse Oximetry (%) 96 12/29/18 09:00 Labs: CBC, BMP 12/30/18 07:00 12/30/18 07:00 INR, PTT INR 1.15 (0.83-1.09) H 12/28/18 06:30
--- NOTE | 2018-12-30 14:07 | PN ---
Progress Note, Physician History of Present Illness: Pt is alert, afebrile, without any specific complaints. Tolerating antibiotics. - Current Medication List Current Medications: Active Medications Acetaminophen (Tylenol -) 650 mg PO Q4H PRN PRN Reason: FEVER Last Admin: 12/29/18 21:10 Dose: 650 mg Amlodipine Besylate (Norvasc -) 10 mg PO DAILY [facility] Last Admin: 12/30/18 10:59 Dose: 10 mg Atorvastatin Calcium (Lipitor -) 10 mg PO HS [facility] Last Admin: 12/29/18 21:11 Dose: 10 mg Clopidogrel Bisulfate (Plavix -) 75 mg PO DAILY [facility] Last Admin: 12/30/18 10:59 Dose: 75 mg Collagenase (Santyl -) 1 applic TP DAILY [facility]; Protocol Last Admin: 12/30/18 10:59 Dose: 1 applic Ferrous Sulfate (Feosol -) 325 mg PO DAILY [facility] Last Admin: 12/30/18 10:59 Dose: 325 mg Heparin Sodium (Porcine) (Heparin -) 5,000 unit SQ TID [facility] Last Admin: 12/30/18 05:52 Dose: 5,000 unit Piperacillin Sod/Tazobactam (Sod 2.25 gm/ Dextrose) 50 mls @ 100 mls/hr IVPB Q8H-IV [facility]; Protocol Last Admin: 12/30/18 10:59 Dose: 100 mls/hr Insulin Aspart (Novolog Vial Sliding Scale -) 1 vial SQ TIDAC [facility]; Protocol Last Admin: 12/30/18 06:47 Dose: Not Given Labetalol HCl (Normodyne -) 300 mg PO TID [facility] Last Admin: 12/30/18 05:52 Dose: 300 mg Senna (Senna -) 2 tab PO HS [facility] Last Admin: 12/29/18 21:11 Dose: 2 tab Sevelamer Carbonate (Renvela -) 800 mg PO TIDCM [facility] Last Admin: 12/30/18 10:59 Dose: 800 mg - Objective Vital Signs: Vital Signs Temperature 98.1 F 12/30/18 07:03 Pulse Rate 71 12/30/18 07:03 Respiratory Rate 20 12/30/18 07:03 Blood Pressure 173/76 H 12/30/18 07:03 O2 Sat by Pulse Oximetry (%) 96 12/29/18 09:00 Constitutional: Yes: No Distress, Calm Respiratory: Yes: Regular Gastrointestinal: Yes: Normal Bowel Sounds, Soft Wound/Incision: Yes: Other (Lt TMA with eschar/mild necrosis/clear drainage, Lt heel ulcer) Neurological: Yes: Alert Labs: CBC, BMP 12/30/18 07:00 12/30/18 07:00 INR, PTT INR 1.15 (0.83-1.09) H 12/28/18 06:30 Microbiology 12/27/18 14:55 Foot - Right Gram Stain - Final 12/27/18 14:55 Foot - Right Wound Culture - Preliminary Escherichia Coli Presumptive Mssa (Pbp2a Neg) 12/27/18 12:00 Blood - Peripheral Venous Blood Culture - Preliminary NO GROWTH OBTAINED AFTER 72 HOURS, INCUBATION TO CONTINUE FOR 2 DAYS. 12/27/18 12:00 Blood - Peripheral Venous Blood Culture - Preliminary NO GROWTH OBTAINED AFTER 72 HOURS, INCUBATION TO CONTINUE FOR 2 DAYS. - ....Imaging MRI: Report Reviewed Problem List - Problems (1) ESRD (end stage renal disease) Code(s): N18.6 - END STAGE RENAL DISEASE (2) Infection of left foot Code(s): L08.9 - LOCAL INFECTION OF THE SKIN AND SUBCUTANEOUS TISSUE, UNSP (3) AVF (arteriovenous fistula) Code(s): I77.0 - ARTERIOVENOUS FISTULA, ACQUIRED (4) ESRD (end stage renal disease) on dialysis Code(s): N18.6 - END STAGE RENAL DISEASE; Z99.2 - DEPENDENCE ON RENAL DIALYSIS (5) Foot ulcer Code(s): L97.509 - NON-PRESSURE CHRONIC ULCER OTH PRT UNSP FOOT W UNSP SEVERITY Qualifiers: Laterality: left Non-pressure ulcer stage: unspecified non-pressure ulcer stage Qualified Code(s): L97.529 - Non-pressure chronic ulcer of other part of left foot with unspecified severity (6) Wound infection Code(s): T14.8XXA - OTHER INJURY OF UNSPECIFIED BODY REGION, INITIAL ENCOUNTER; L08.9 - LOCAL INFECTION OF THE SKIN AND SUBCUTANEOUS TISSUE, UNSP (7) Anemia Code(s): D64.9 - ANEMIA, UNSPECIFIED Qualifiers: Anemia type: due to chronic kidney disease Chronic kidney disease stage: on chronic dialysis Qualified Code(s): N18.6 - End stage renal disease; D63.1 - Anemia in chronic kidney disease; Z99.2 - Dependence on renal dialysis Assessment/Plan Polymicrobial Infected Lt heel ulcer/Possible OM PVD ESRD on HD s/p Lt TMA/flap HTN HLD -- continue IV antibiotics -- Vascular following -- continue wound care -- wbc trending down, afebrile
--- NOTE | 2018-12-30 16:06 | PN ---
Progress Note, Physician Chief Complaint: The patient seen in her room. Lying in bed. Comfortable. IV antibiotics infusing and tolerated well. denies any new complaints. Afebrile. No chest pains. No shortness of breath. History of Present Illness: 78 year old woman with hx of ESRD on HD (TTS), PVD s/p TMA 2018, HTN, DM, hyperlipidemia who presented with left heel wound. The patient had uneventful HD yesterday. - Current Medication List Current Medications: Active Medications Acetaminophen (Tylenol -) 650 mg PO Q4H PRN PRN Reason: FEVER Last Admin: 12/29/18 21:10 Dose: 650 mg Amlodipine Besylate (Norvasc -) 10 mg PO DAILY [facility] Last Admin: 12/30/18 10:59 Dose: 10 mg Atorvastatin Calcium (Lipitor -) 10 mg PO HS [facility] Last Admin: 12/29/18 21:11 Dose: 10 mg Clopidogrel Bisulfate (Plavix -) 75 mg PO DAILY [facility] Last Admin: 12/30/18 10:59 Dose: 75 mg Collagenase (Santyl -) 1 applic TP DAILY [facility]; Protocol Last Admin: 12/30/18 10:59 Dose: 1 applic Ferrous Sulfate (Feosol -) 325 mg PO DAILY [facility] Last Admin: 12/30/18 10:59 Dose: 325 mg Heparin Sodium (Porcine) (Heparin -) 5,000 unit SQ TID [facility] Last Admin: 12/30/18 15:19 Dose: 5,000 unit Piperacillin Sod/Tazobactam (Sod 2.25 gm/ Dextrose) 50 mls @ 100 mls/hr IVPB Q8H-IV [facility]; Protocol Last Admin: 12/30/18 10:59 Dose: 100 mls/hr Insulin Aspart (Novolog Vial Sliding Scale -) 1 vial SQ TIDAC [facility]; Protocol Last Admin: 12/30/18 15:15 Dose: Not Given Labetalol HCl (Normodyne -) 300 mg PO TID [facility] Last Admin: 12/30/18 15:19 Dose: 300 mg Senna (Senna -) 2 tab PO HS [facility] Last Admin: 12/29/18 21:11 Dose: 2 tab Sevelamer Carbonate (Renvela -) 800 mg PO TIDCM [facility] Last Admin: 12/30/18 10:59 Dose: 800 mg - Objective Vital Signs: Vital Signs Temperature 98.1 F 12/30/18 07:03 Pulse Rate 71 12/30/18 07:03 Respiratory Rate 20 12/30/18 07:03 Blood Pressure 173/76 H 12/30/18 07:03 O2 Sat by Pulse Oximetry (%) 96 12/29/18 09:00 Constitutional: Yes: Well Nourished, Anxious Eyes: Yes: Conjunctiva Clear HENT: Yes: Normocephalic Neck: Yes: Trachea Midline Respiratory: Yes: CTA Bilaterally Gastrointestinal: Yes: Normal Bowel Sounds, Soft Genitourinary: No: Bladder Distention, CVA Tenderness - Left, CVA Tenderness - Right Musculoskeletal: Yes: Back Pain Extremities: Yes: Amputation Edema: Yes Edema: LLE: Trace, RLE: Trace Neurological: Yes: Alert, Oriented Labs: CBC, BMP 12/30/18 07:00 12/30/18 07:00 INR, PTT INR 1.15 (0.83-1.09) H 12/28/18 06:30 Problem List - Problems (1) ESRD (end stage renal disease) Code(s): N18.6 - END STAGE RENAL DISEASE (2) Infection of left foot Code(s): L08.9 - LOCAL INFECTION OF THE SKIN AND SUBCUTANEOUS TISSUE, UNSP (3) AVF (arteriovenous fistula) Code(s): I77.0 - ARTERIOVENOUS FISTULA, ACQUIRED (4) Anemia associated with acute blood loss Code(s): D62 - ACUTE POSTHEMORRHAGIC ANEMIA (5) Osteomyelitis Code(s): M86.9 - OSTEOMYELITIS, UNSPECIFIED (6) Type 2 diabetes mellitus with foot ulcer Code(s): E11.621 - TYPE 2 DIABETES MELLITUS WITH FOOT ULCER; L97.509 - NON- PRESSURE CHRONIC ULCER OTH PRT UNSP FOOT W UNSP SEVERITY (7) Diabetes Code(s): E11.9 - TYPE 2 DIABETES MELLITUS WITHOUT COMPLICATIONS Qualifiers: Diabetes mellitus type: type 2 Diabetes mellitus plastic maker insulin use: without plastic maker use Diabetes mellitus complication status: with kidney complications Diabetes mellitus complication detail: with chronic kidney disease Chronic kidney disease stage: on chronic dialysis Qualified Code(s) : E11.22 - Type 2 diabetes mellitus with diabetic chronic kidney disease; N18.6 - End stage renal disease; Z99.2 - Dependence on renal dialysis (8) Osteoarthritis Code(s): M19.90 - UNSPECIFIED OSTEOARTHRITIS, UNSPECIFIED SITE Assessment/Plan 78 year old woman with hx of ESRD on HD 9TTS), PVD s/p TMA 2018, HTN, DM, hyperlipidemia who presented with left heel wound. She is being treated with IV antibiotics for possible Osteomyelitis. IV antibiotics well tolerated. denies any specific pains. Had HD yesterday. Next dialysis on Monday. Ursula Echavarria MD
[2018-12-30] MEDS: ACETAMINOPHEN 325 MG TABLET (FP) PO PRN (18:03)
[2018-12-30] MEDS: SENNOSIDES 8.6MG TABLET (FP) PO SCH (22:29)
[2018-12-30] MEDS: ATORVASTATIN CA 10 MG TABLET (FP) PO SCH (22:29)
[2018-12-31] MEDS ORDERED: PIPERACILLIN/TAZOBACTAM 2.25 GM VIAL IVPB ONE ×3 (01:46→17:11)
[2018-12-31] MEDS ORDERED: DEXTROSE 5%-WATER - 50 ML IVPB ONE ×3 (01:46→17:11)
[2018-12-31] MEDS: PIPERACILLIN/TAZOB 2.25 GM 2.25 GM in DEXTROSE 5%-WATER - 50 ML IVPB SCH ×3 (01:59→17:17)
[2018-12-31] MEDS: HEPARIN NA (PORCINE) 5,000 UNITS/ML 1ML VIAL SQ SCH ×3 (06:15→21:27)
[2018-12-31] MEDS: INSULIN SLIDING SCALE (NOVOLOG) 1 VIAL SQ SCH ×3 (06:16→17:32)
[2018-12-31] MEDS: LABETALOL HCL 200 MG TABLET (FP) PO SCH ×3 (06:16→21:27)
[2018-12-31 08:25] LABS: BASO % 0.6 % (0-2.0); EOS % 2.5 % (0-4.5); LYMPH % 11.2 % (8-40); MCH 28.9 pg (25.7-33.7); MCHC 32.1 g/dl (32.0-36.0); MEAN CELL VOLUME 90.1 fl (80-96); MEAN PLT VOLUME 7.5 fl (7.5-11.1); MONO % 7.7 % (3.8-10.2); PLATELET COUNT 314 K/MM3 (134-434); RBC 3.45 M/mm3 (3.60-5.2); RDW 17.2 % (11.6-15.6); WHITE BLOOD COUNT 13.8 K/mm3 (4.0-10.0)
[2018-12-31 08:34] LABS: CALCIUM 9.6 mg/dL (8.5-10.1)
[2018-12-31] MEDS: SEVELAMER CARBONATE 800 MG TAB (FP) PO SCH ×3 (09:12→17:17)
[2018-12-31] MEDS: FERROUS SO4 325 MG TABLET (FP) PO SCH (09:12)
[2018-12-31] MEDS: CLOPIDOGREL BISULFATE 75 MG TABLET (FP) PO SCH (09:12)
[2018-12-31] MEDS: amLODIPine BESYLATE 10 MG TABLET (FP) PO SCH (09:12)
[2018-12-31] MEDS: COLLAGENASE CLOSTRIDIUM HIST. 30 GRAMS TUBE TP SCH (09:13)
--- NOTE | 2018-12-31 11:27 | PN ---
Progress Note, Physician History of Present Illness: stable no new issues - Current Medication List Current Medications: Active Medications Acetaminophen (Tylenol -) 650 mg PO Q4H PRN PRN Reason: FEVER Last Admin: 12/30/18 18:03 Dose: 650 mg Amlodipine Besylate (Norvasc -) 10 mg PO DAILY [facility] Last Admin: 12/31/18 09:12 Dose: 10 mg Atorvastatin Calcium (Lipitor -) 10 mg PO HS [facility] Last Admin: 12/30/18 22:29 Dose: 10 mg Clopidogrel Bisulfate (Plavix -) 75 mg PO DAILY [facility] Last Admin: 12/31/18 09:12 Dose: 75 mg Collagenase (Santyl -) 1 applic TP DAILY [facility]; Protocol Last Admin: 12/31/18 09:13 Dose: 1 applic Ferrous Sulfate (Feosol -) 325 mg PO DAILY [facility] Last Admin: 12/31/18 09:12 Dose: 325 mg Heparin Sodium (Porcine) (Heparin -) 5,000 unit SQ TID [facility] Last Admin: 12/31/18 06:15 Dose: 5,000 unit Piperacillin Sod/Tazobactam (Sod 2.25 gm/ Dextrose) 50 mls @ 100 mls/hr IVPB Q8H-IV [facility]; Protocol Last Admin: 12/31/18 09:13 Dose: 100 mls/hr Insulin Aspart (Novolog Vial Sliding Scale -) 1 vial SQ TIDAC [facility]; Protocol Last Admin: 12/31/18 10:44 Dose: Not Given Labetalol HCl (Normodyne -) 300 mg PO TID [facility] Last Admin: 12/31/18 06:16 Dose: 300 mg Senna (Senna -) 2 tab PO HS [facility] Last Admin: 12/30/18 22:29 Dose: 2 tab Sevelamer Carbonate (Renvela -) 800 mg PO TIDCM [facility] Last Admin: 12/31/18 09:12 Dose: 800 mg - Objective Vital Signs: Vital Signs Temperature 98.2 F 12/31/18 06:00 Pulse Rate 74 12/31/18 06:00 Respiratory Rate 20 12/31/18 06:00 Blood Pressure 158/77 12/31/18 06:00 O2 Sat by Pulse Oximetry (%) 96 12/29/18 09:00 Constitutional: Yes: No Distress, Calm Cardiovascular: Yes: S1, S2 Respiratory: Yes: Regular, CTA Bilaterally Gastrointestinal: Yes: Normal Bowel Sounds, Soft Musculoskeletal: Yes: WNL Extremities: Yes: Other Wound/Incision: Yes: Dressing Dry and Intact Neurological: Yes: Alert, Oriented Psychiatric: Yes: Alert, Oriented Labs: CBC, BMP 12/31/18 06:30 12/31/18 06:30 INR, PTT INR 1.15 (0.83-1.09) H 12/28/18 06:30 Assessment/Plan 78 yof with PMHx of ESRD on HD (T,Th,S), HTN, HLD, PVD (s/p left TMA/flap), admitted with Left heel infection concerning for abscess +/- osteomyelitis. -Left heel infection, suspicious for abscess, r/o osteomyelitis -PVD -s/p Left TMA/flap surgery -ESRD on HD -HTN -HLD looking at the wound i am leaning towards infection and osteo,patient going for imaging study plan continue current mgmt wound care rest as per the team vascular
--- NOTE | 2018-12-31 12:12 | PN ---
Progress Note (short form) - Note Progress Note: Vascular Surgery Pt seen and examined. Pt has had angioplasty in the past. Thereafter pt had TMA -- which has not healed as of yet. Now pt comes in with left heel gangrene that is foul smelling. CTA reviewed. Pt has severe tibial disease. CAn do angiogram and try to open posterior tibial artery. Main runoff right now is dorsalis pedis to forefoot, which is why the heel has gangrene. If unsuccessful with angiogram, pt will need left BKA. Please clear for angiogram. Will then book. Boris Rodriguez DO
--- NOTE | 2018-12-31 12:21 | PN ---
Physical Exam: SUBJECTIVE: Patient seen and examined at bedside. No complaints. OBJECTIVE: Vital Signs Temperature 98.0 F 12/31/18 12:00 Pulse Rate 67 12/31/18 12:00 Respiratory Rate 20 12/31/18 12:00 Blood Pressure 164/70 12/31/18 12:00 O2 Sat by Pulse Oximetry (%) 96 12/29/18 09:00 GENERAL: The patient is awake, alert, and fully oriented, in no acute distress. EYES: extraocular movements intact, sclera anicteric, conjunctiva clear. NECK: Trachea midline, full range of motion LUNGS: Breath sounds equal, clear to auscultation bilaterally HEART: Regular rate and rhythm, S1, S2 ABDOMEN: Soft, nontender, nondistended, normoactive bowel sounds EXTREMITIES: RLE with no edema, no skin lesions, no ulcerations. LLE wrapped in dressing. NEUROLOGICAL: Cranial nerves II through XII grossly intact. Normal speech. PSYCH: Normal mood, normal affect. SKIN: Warm, dry, LLE wrapped in dressing. Laboratory Results - last 24 hr 12/30/18 12/31/18 12/31/18 17:58 06:13 06:30 WBC 13.8 H RBC 3.45 L Hgb 10.0 L Hct 31.0 L MCV 90.1 MCH 28.9 MCHC 32.1 RDW 17.2 H Plt Count 314 MPV 7.5 Absolute Neuts (auto) 10.8 H Neutrophils % 78.0 Lymphocytes % 11.2 Monocytes % 7.7 Eosinophils % 2.5 Basophils % 0.6 Nucleated RBC % 0 Sodium Potassium Chloride Carbon Dioxide Anion Gap BUN Creatinine Est GFR (CKD-EPI)AfAm Est GFR (CKD-EPI)NonAf POC Glucometer 88 69 Random Glucose Calcium 12/31/18 12/31/18 06:30 10:43 WBC RBC Hgb Hct MCV MCH MCHC RDW Plt Count MPV Absolute Neuts (auto) Neutrophils % Lymphocytes % Monocytes % Eosinophils % Basophils % Nucleated RBC % Sodium 138 Potassium 4.0 Chloride 100 Carbon Dioxide 27 Anion Gap 11 BUN 28 H Creatinine 4.0 H Est GFR (CKD-EPI)AfAm 11.61 Est GFR (CKD-EPI)NonAf 10.02 POC Glucometer 88 Random Glucose 69 L Calcium 9.6 Active Medications Generic Name Dose Route Start Last Admin Trade Name Freq PRN Reason Stop Dose Admin Acetaminophen 650 mg 12/27/18 16:15 12/30/18 18:03 Tylenol - PO 650 mg Q4H PRN Administration FEVER Amlodipine Besylate 10 mg 12/28/18 10:00 12/31/18 09:12 Norvasc - PO 10 mg DAILY NOE Administration Atorvastatin Calcium 10 mg 12/27/18 22:00 12/30/18 22:29 Lipitor - PO 10 mg HS NOE Administration Clopidogrel Bisulfate 75 mg 12/27/18 16:30 12/31/18 09:12 Plavix - PO 75 mg DAILY NOE Administration Collagenase 1 applic 12/28/18 11:00 12/31/18 09:13 Santyl - TP 1 applic DAILY NOE Administration Protocol Ferrous Sulfate 325 mg 12/28/18 10:00 12/31/18 09:12 Feosol - PO 325 mg DAILY NOE Administration Heparin Sodium (Porcine) 5,000 unit 12/27/18 22:00 12/31/18 06:15 Heparin - SQ 5,000 unit TID NOE Administration Piperacillin Sod/Tazobactam 50 mls @ 100 mls/hr 12/28/18 18:00 12/31/18 09:13 Sod 2.25 gm/ Dextrose IVPB 100 mls/hr Q8H-IV NOE Administration Protocol Insulin Aspart 1 vial 12/30/18 07:00 12/31/18 10:44 Novolog Vial Sliding Scale - SQ Not Given TIDAC [facility] Protocol Labetalol HCl 300 mg 12/27/18 22:00 12/31/18 06:16 Normodyne - PO 300 mg TID NOE Administration Senna 2 tab 12/27/18 22:00 12/30/18 22:29 Senna - PO 2 tab HS NOE Administration Sevelamer Carbonate 800 mg 12/27/18 17:30 12/31/18 11:45 Renvela - PO 800 mg TIDCM NOE Administration MRI LE: 12/27/18 Impression: 1. Limited examination due to motion artifact. 2. Open wound over the posterior medial soft tissues over the posterior plantar aspect of the calcaneus with soft tissue edema deep to the open wound extending to level of the calcaneus. 3. Rim of increased T2 signal along the posterior plantar aspect of the medial calcaneus which could be in the soft tissues adjacent to the cortex however on one image is questionably involving the cortex which could be due to reactive osteitis however early osteomyelitis cannot be entirely excluded. 4. Question of faint bone marrow edema of the distal aspect of the residual second metatarsal. Clinical correlation recommended. ASSESSMENT/PLAN: 78 y/o M w/PMH of ESRD (T,Th,S), HTN, HLD, PVD (s/p amputation of L toes) presents for wound evaluation on LLE. -LLE ulceration -r/o OM. -c/w abx per ID. ID consulted. -vascular surgery following, podiatry following -daily dressing changes, betadine solution to L heel -air mattress, pressure offloading -per nephro - would be ideal to dialyze patient immediately following angiogram -ESRD -HD TTS -nephrology following -HD per nephro -c/w renvela, phoslo, iron -HTN -c/w amlodipine, labetalol -HLD -c/w lipitor -PVD -c/w plavix, lipitor -Possible hx of DM -will monitor glucose here -DVT ppx -Heparin 5000 units q8h -FEN -No fluids -Monitor electrolytes -Sodium controlled, renal diet -Dispo: monitor on m/s Visit type - Emergency Visit Emergency Visit: Yes ED Registration Date: 12/27/18 Care time: The patient presented to the Emergency Department on the above date and was hospitalized for further evaluation of their emergent condition. - New Patient This patient is new to me today: No - Critical Care Critical Care patient: No
--- NOTE | 2018-12-31 12:26 | PN ---
Progress Note, Physician Chief Complaint: The patient seen in her room. Lying in bed. Comfortable. IV antibiotics infusing and tolerated well. Denies any new complaints. Afebrile. No chest pains. No shortness of breath. Vascular notes noted. For angiogram History of Present Illness: 78 year old woman with hx of ESRD on HD (TTS), PVD s/p TMA 2018, HTN, DM, hyperlipidemia who presented with left heel wound. Vascular evaluation in progress. - Current Medication List Current Medications: Active Medications Acetaminophen (Tylenol -) 650 mg PO Q4H PRN PRN Reason: FEVER Last Admin: 12/30/18 18:03 Dose: 650 mg Amlodipine Besylate (Norvasc -) 10 mg PO DAILY [facility] Last Admin: 12/31/18 09:12 Dose: 10 mg Atorvastatin Calcium (Lipitor -) 10 mg PO HS [facility] Last Admin: 12/30/18 22:29 Dose: 10 mg Clopidogrel Bisulfate (Plavix -) 75 mg PO DAILY [facility] Last Admin: 12/31/18 09:12 Dose: 75 mg Collagenase (Santyl -) 1 applic TP DAILY [facility]; Protocol Last Admin: 12/31/18 09:13 Dose: 1 applic Ferrous Sulfate (Feosol -) 325 mg PO DAILY [facility] Last Admin: 12/31/18 09:12 Dose: 325 mg Heparin Sodium (Porcine) (Heparin -) 5,000 unit SQ TID [facility] Last Admin: 12/31/18 06:15 Dose: 5,000 unit Piperacillin Sod/Tazobactam (Sod 2.25 gm/ Dextrose) 50 mls @ 100 mls/hr IVPB Q8H-IV [facility]; Protocol Last Admin: 12/31/18 09:13 Dose: 100 mls/hr Insulin Aspart (Novolog Vial Sliding Scale -) 1 vial SQ TIDAC [facility]; Protocol Last Admin: 12/31/18 10:44 Dose: Not Given Labetalol HCl (Normodyne -) 300 mg PO TID [facility] Last Admin: 12/31/18 06:16 Dose: 300 mg Senna (Senna -) 2 tab PO HS [facility] Last Admin: 12/30/18 22:29 Dose: 2 tab Sevelamer Carbonate (Renvela -) 800 mg PO TIDCM [facility] Last Admin: 12/31/18 11:45 Dose: 800 mg - Objective Vital Signs: Vital Signs Temperature 98.0 F 12/31/18 12:00 Pulse Rate 67 12/31/18 12:00 Respiratory Rate 20 12/31/18 12:00 Blood Pressure 164/70 12/31/18 12:00 O2 Sat by Pulse Oximetry (%) 96 12/29/18 09:00 Constitutional: Yes: Calm Eyes: Yes: Conjunctiva Clear HENT: Yes: Normocephalic Neck: Yes: Trachea Midline Cardiovascular: Yes: Regular Rate and Rhythm, S1, S2 Respiratory: Yes: CTA Bilaterally Gastrointestinal: Yes: Normal Bowel Sounds, Soft Musculoskeletal: Yes: Back Pain Extremities: Yes: Other (Dressings in place over both the heels.) Labs: CBC, BMP 12/31/18 06:30 12/31/18 06:30 INR, PTT INR 1.15 (0.83-1.09) H 12/28/18 06:30 Problem List - Problems (1) ESRD (end stage renal disease) Code(s): N18.6 - END STAGE RENAL DISEASE (2) Infection of left foot Code(s): L08.9 - LOCAL INFECTION OF THE SKIN AND SUBCUTANEOUS TISSUE, UNSP (3) AVF (arteriovenous fistula) Code(s): I77.0 - ARTERIOVENOUS FISTULA, ACQUIRED (4) Anemia associated with acute blood loss Code(s): D62 - ACUTE POSTHEMORRHAGIC ANEMIA (5) Osteomyelitis Code(s): M86.9 - OSTEOMYELITIS, UNSPECIFIED (6) Type 2 diabetes mellitus with foot ulcer Code(s): E11.621 - TYPE 2 DIABETES MELLITUS WITH FOOT ULCER; L97.509 - NON- PRESSURE CHRONIC ULCER OTH PRT UNSP FOOT W UNSP SEVERITY (7) Diabetes Code(s): E11.9 - TYPE 2 DIABETES MELLITUS WITHOUT COMPLICATIONS Qualifiers: Diabetes mellitus type: type 2 Diabetes mellitus fdc insulin use: without fdc use Diabetes mellitus complication status: with kidney complications Diabetes mellitus complication detail: with chronic kidney disease Chronic kidney disease stage: on chronic dialysis Qualified Code(s) : E11.22 - Type 2 diabetes mellitus with diabetic chronic kidney disease; N18.6 - End stage renal disease; Z99.2 - Dependence on renal dialysis (8) Osteoarthritis Code(s): M19.90 - UNSPECIFIED OSTEOARTHRITIS, UNSPECIFIED SITE Assessment/Plan 78 year old woman with hx of ESRD on HD 9TTS), PVD s/p TMA 2018, HTN, DM, hyperlipidemia who presented with left heel wound. She is being treated with IV antibiotics for possible Osteomyelitis. Vascular w/u in progress. IV antibiotics well tolerated. Denies any specific pains. No overt contraindication to Angiogram. It would be ideal to dialyze the patient immedialtely after the Angiogram. Please schedule the angiogram prior to dialysis. Next HD scheduled for tomorrow. Ursula Echavarria MD
--- NOTE | 2018-12-31 14:49 | PN ---
Teaching Attending Note Name of Resident: Fernando Rodriguez ATTENDING PHYSICIAN STATEMENT I saw and evaluated the patient. I reviewed the resident's note and discussed the case with the resident. I agree with the resident's findings and plan as documented with exceptions below. SUBJECTIVE: Patient seen and examined. No complaints. OBJECTIVE: Vital Signs Period Temp Pulse Resp BP Sys/Jha Pulse Ox Last 24 Hr 98.0 F-98.8 F 67-74 18-20 131-164/50-77 Intake & Output 12/28/18 12/29/18 12/30/18 12/31/18 23:59 23:59 23:59 23:59 Intake Total 1220 365 270 Balance 1220 365 270 Weight 138 lb 145 lb 1.6 oz 131 lb 5 oz 135 lb 8 oz GENERAL: sitting in bed in no acute distress Chest: CTAB, no rales or wheezing Abdomen:soft, NT, ND, pos bowel sounds Extremities: left foot with unchanged TMA wound with granulation tissue with sloughing and clear foul smelling discharge, Left heel eschar, non tender Psych: pleasant, co-operative CVS: S1S2 regular Home Medications Medication Instructions Recorded Amlodipine Besylate [Norvasc -] 10 mg PO DAILY 08/02/14 Atorvastatin Ca [Lipitor] 10 mg PO HS 03/29/17 Sevelamer Carbonate [Renvela -] 800 mg PO TID 03/29/17 Acetaminophen [Tylenol .Regular 650 mg PO Q4H PRN tablet 08/06/18 Strength -] Clopidogrel Bisulfate [Clopidogrel] 75 mg PO DAILY #30 tablet 08/06/18 Calcium Acetate [Phoslo -] 667 mg PO TID 08/23/18 Ferrous Sulfate 325 mg PO DAILY 08/23/18 Labetalol HCl [Normodyne -] 300 mg PO TID tablet 09/17/18 Sennosides [Senna -] 2 tab PO HS tablet 09/17/18 Active Medications Acetaminophen (Tylenol -) 650 mg PO Q4H PRN PRN Reason: FEVER Last Admin: 12/30/18 18:03 Dose: 650 mg Amlodipine Besylate (Norvasc -) 10 mg PO DAILY NOE Last Admin: 12/31/18 09:12 Dose: 10 mg Atorvastatin Calcium (Lipitor -) 10 mg PO HS [facility] Last Admin: 12/30/18 22:29 Dose: 10 mg Clopidogrel Bisulfate (Plavix -) 75 mg PO DAILY [facility] Last Admin: 12/31/18 09:12 Dose: 75 mg Collagenase (Santyl -) 1 applic TP DAILY [facility]; Protocol Last Admin: 12/31/18 09:13 Dose: 1 applic Epoetin Kin (Procrit -) 10,000 unit SQ ONCE ONE Stop: 01/01/19 12:32 Ferrous Sulfate (Feosol -) 325 mg PO DAILY NOE Last Admin: 12/31/18 09:12 Dose: 325 mg Heparin Sodium (Porcine) (Heparin -) 5,000 unit SQ TID NOE Last Admin: 12/31/18 14:13 Dose: 5,000 unit Piperacillin Sod/Tazobactam (Sod 2.25 gm/ Dextrose) 50 mls @ 100 mls/hr IVPB Q8H-IV [facility]; Protocol Last Admin: 12/31/18 09:13 Dose: 100 mls/hr Insulin Aspart (Novolog Vial Sliding Scale -) 1 vial SQ TIDAC [facility]; Protocol Last Admin: 12/31/18 10:44 Dose: Not Given Labetalol HCl (Normodyne -) 300 mg PO TID [facility] Last Admin: 12/31/18 14:13 Dose: 300 mg Senna (Senna -) 2 tab PO HS NOE Last Admin: 12/30/18 22:29 Dose: 2 tab Sevelamer Carbonate (Renvela -) 800 mg PO TIDCM [facility] Last Admin: 12/31/18 11:45 Dose: 800 mg Laboratory Results - last 24 hr 12/30/18 12/31/18 12/31/18 17:58 06:13 06:30 WBC 13.8 H RBC 3.45 L Hgb 10.0 L Hct 31.0 L MCV 90.1 MCH 28.9 MCHC 32.1 RDW 17.2 H Plt Count 314 MPV 7.5 Absolute Neuts (auto) 10.8 H Neutrophils % 78.0 Lymphocytes % 11.2 Monocytes % 7.7 Eosinophils % 2.5 Basophils % 0.6 Nucleated RBC % 0 Sodium Potassium Chloride Carbon Dioxide Anion Gap BUN Creatinine Est GFR (CKD-EPI)AfAm Est GFR (CKD-EPI)NonAf POC Glucometer 88 69 Random Glucose Calcium 12/31/18 12/31/18 06:30 10:43 WBC RBC Hgb Hct MCV MCH MCHC RDW Plt Count MPV Absolute Neuts (auto) Neutrophils % Lymphocytes % Monocytes % Eosinophils % Basophils % Nucleated RBC % Sodium 138 Potassium 4.0 Chloride 100 Carbon Dioxide 27 Anion Gap 11 BUN 28 H Creatinine 4.0 H Est GFR (CKD-EPI)AfAm 11.61 Est GFR (CKD-EPI)NonAf 10.02 POC Glucometer 88 Random Glucose 69 L Calcium 9.6 Microbiology 12/27/18 12:00 Blood - Peripheral Venous Blood Culture - Preliminary NO GROWTH OBTAINED AFTER 96 HOURS, INCUBATION TO CONTINUE FOR 1 DAYS. 12/27/18 12:00 Blood - Peripheral Venous Blood Culture - Preliminary NO GROWTH OBTAINED AFTER 96 HOURS, INCUBATION TO CONTINUE FOR 1 DAYS. 12/27/18 14:55 Foot - Right Gram Stain - Final 12/27/18 14:55 Foot - Right Wound Culture - Final Escherichia Coli Staphylococcus Aureus ASSESSMENT AND PLAN: 78 yof with PMHx of ESRD on HD (T,Th,S), HTN, HLD, PVD (s/p left TMA/flap), admitted with Left heel infection concerning for abscess +/- osteomyelitis. -Left heel infection, suspicious for abscess, +/- osteomyelitis -PVD -s/p Left TMA/flap surgery -ESRD on HD -HTN -HLD -?NIDDM Plan: Zosyn/Vanco renal dosing. Blood cx neg so far, wound cx noted. CTA noted. Vascular surgery input noted. For angiography. If fail to revascularize, need to address BKA. Cardiology consult for pre-op risk stratification. Continue plavix Follow up podiatry input. ESR/CRP noted. Continue labetalol/amlodipine. HD per renal. Sevelamer/Iron ?NIDDM. Last A1c 4.5, monitor for now. Place on BGM for now. DVTPPX heparin Dispo pending clinical improvement. Plan discussed with patient and nursing in detail, all questions answered.
[2018-12-31] MEDS: DEXTROSE 5%-NORMAL SALINE 1,000 ML IV SCH (17:32)
[2018-12-31] MEDS: ATORVASTATIN CA 10 MG TABLET (FP) PO SCH (21:27)
[2018-12-31] MEDS: SENNOSIDES 8.6MG TABLET (FP) PO SCH (21:27)
[2019-01-01] MEDS ORDERED: PIPERACILLIN/TAZOBACTAM 2.25 GM VIAL IVPB ONE ×3 (01:09→16:51)
[2019-01-01] MEDS ORDERED: DEXTROSE 5%-WATER - 50 ML IVPB ONE ×3 (01:10→16:51)
[2019-01-01] MEDS: PIPERACILLIN/TAZOB 2.25 GM 2.25 GM in DEXTROSE 5%-WATER - 50 ML IVPB SCH ×3 (01:16→18:11)
[2019-01-01] MEDS: HEPARIN NA (PORCINE) 5,000 UNITS/ML 1ML VIAL SQ SCH ×2 (06:31→15:59)
[2019-01-01] MEDS: LABETALOL HCL 200 MG TABLET (FP) PO SCH ×2 (06:31→15:57)
[2019-01-01] MEDS: INSULIN SLIDING SCALE (NOVOLOG) 1 VIAL SQ SCH ×3 (06:39→15:00)
[2019-01-01 08:43] LABS: BASO % 1.2 % (0-2.0); EOS % 2.9 % (0-4.5); HEMATOCRIT 29.1 % (32.4-45.2); HEMOGLOBIN 9.3 GM/dL (10.7-15.3); LYMPH % 10.4 % (8-40); MCH 28.9 pg (25.7-33.7); MEAN CELL VOLUME 90.2 fl (80-96); MEAN PLT VOLUME 7.1 fl (7.5-11.1); MONO % 6.6 % (3.8-10.2); NEUT % 78.9 % (42.8-82.8); PLATELET COUNT 293 K/MM3 (134-434); RBC 3.23 M/mm3 (3.60-5.2); RDW 17.2 % (11.6-15.6)
[2019-01-01 08:48] LABS: WHITE BLOOD COUNT 14.1 K/mm3 (4.0-10.0)
[2019-01-01 09:08] LABS: ALBUMIN 2.2 g/dl (3.4-5.0); CALCIUM 9.1 mg/dL (8.5-10.1); CREATININE 4.8 mg/dL (0.55-1.3); MAGNESIUM 2.4 mg/dL (1.8-2.4); PHOSPHOROUS 4.1 mg/dL (2.5-4.9); POTASSIUM 3.7 mmol/L (3.5-5.1)
[2019-01-01] MEDS: SEVELAMER CARBONATE 800 MG TAB (FP) PO SCH ×3 (09:46→18:10)
[2019-01-01] MEDS: CLOPIDOGREL BISULFATE 75 MG TABLET (FP) PO SCH (09:46)
[2019-01-01] MEDS: amLODIPine BESYLATE 10 MG TABLET (FP) PO SCH (09:46)
[2019-01-01] MEDS: FERROUS SO4 325 MG TABLET (FP) PO SCH (09:46)
[2019-01-01] MEDS: COLLAGENASE CLOSTRIDIUM HIST. 30 GRAMS TUBE TP SCH (09:46)
--- NOTE | 2019-01-01 10:46 | CON.CARD ---
Consult Consult Specialty:: Cardiology Referred by:: Dr. Sanchez Reason for Consultation:: Preop cardiac eval prior to LE angiography - History of Present Illness Chief Complaint: Left heel gangrene, PAD planned for angiogram History of Present Illness: 78F DM, ESRD on HD with gangrene of LLE. CTA LE revealed significant PAD for which Vascular surgery was consulted. A LE angiogram was recommended with possible PTCA and possible future amputation. Patient denies prior ND or coronary interventions. She uses a walker to get around as well as a wheelchair. With her limited activity, she denies CP or SOB. Had cardiac work up here in July of 2018: Echo and nuclear stress. Echo 07/2018 showed LVH, normal LV fx with AVS, mild MR and AR. Nuclear stress ( pharm) showed diaphragmatic attenuation artifact with no ischemia and normal LVEF. - History Source History Provided By: Patient, Medical Record - Past Medical History Cardio/Vascular: Yes: HTN, Hyperlipdemia Gastrointestinal: Yes: GERD Renal/: Yes: Renal Failure, Hemodialysis ...: No Endocrine: Yes: Diabetes Mellitus - Past Surgical History Past Surgical History: Yes: AV Fistula/Graft, Hysterectomy, Joint Replacement, Oopherectomy - Alcohol/Substance Use Hx Alcohol Use: No History of Substance Use: reports: None - Smoking History Smoking history: Never smoked Have you smoked in the past 12 months: No Aproximately how many cigarettes per day: 0 - Social History Usual Living Arrangement: With Child ADL: Support Services History of Recent Travel: No Home Medications - Allergies Allergies/Adverse Reactions: Allergies Allergy/AdvReac Type Severity Reaction Status Date / Time No Known Drug Allergies Allergy Verified 09/06/18 10:08 - Home Medications Home Medications: Ambulatory Orders Amlodipine Besylate [Norvasc -] 10 mg PO DAILY 08/02/14 Atorvastatin Ca [Lipitor] 10 mg PO HS 03/29/17 Sevelamer Carbonate [Renvela -] 800 mg PO TID 03/29/17 Acetaminophen [Tylenol .Regular Strength -] 650 mg PO Q4H PRN tablet 08/06/18 Clopidogrel Bisulfate [Clopidogrel] 75 mg PO DAILY #30 tablet 08/06/18 Calcium Acetate [Phoslo -] 667 mg PO TID 08/23/18 Ferrous Sulfate 325 mg PO DAILY 08/23/18 Labetalol HCl [Normodyne -] 300 mg PO TID tablet 09/17/18 Sennosides [Senna -] 2 tab PO HS tablet 09/17/18 Family Disease History - Family Disease History Family Disease History: Diabetes: Sister, Heart Disease: Sister, Other: Mother Review of Systems - Review of Systems Constitutional: reports: No Symptoms Eyes: reports: No Symptoms HENT: reports: No Symptoms Neck: reports: No Symptoms Cardiovascular: reports: No Symptoms Respiratory: reports: No Symptoms Gastrointestinal: reports: No Symptoms Genitourinary: reports: No Symptoms Musculoskeletal: reports: No Symptoms Integumentary: reports: Wound Neurological: reports: No Symptoms Endocrine: reports: No Symptoms Hematology/Lymphatic: reports: No Symptoms Psychiatric: reports: No Symptoms - Risk Factors Known Risk Factors: Yes: Diabetes Mellitus, Hypertension, Other (ESRD) Vital Signs: Vital Signs Temperature 98.3 F 01/01/19 04:00 Pulse Rate 66 01/01/19 04:00 Respiratory Rate 20 01/01/19 04:00 Blood Pressure 175/76 H 01/01/19 04:00 O2 Sat by Pulse Oximetry (%) 96 12/29/18 09:00 Constitutional: Yes: No Distress Eyes: Yes: Conjunctiva Clear Respiratory: Yes: CTA Bilaterally Gastrointestinal: Yes: Soft Cardiovascular: Yes: Regular Rate and Rhythm (soft systolic murmur RSB) JVD: No Carotid Bruit: No PMI: Non-Displaced Edema: No Peripheral Pulses WNL: No Peripheral Pulses: 1+ Left Doralis Pedis, 2+ Right Dorsalis Pedis Neurological: Yes: Alert, Oriented - Other Data Labs, Other Data: CBC, BMP 01/01/19 08:30 01/01/19 08:30 INR, PTT INR 1.15 (0.83-1.09) H 12/28/18 06:30 Laboratory Tests 12/28/18 12/29/18 01/01/19 06:30 07:30 08:30 WBC 14.1 H Hgb 9.3 L Plt Count 293 INR 1.15 H Sodium Potassium BUN Creatinine Calcium Phosphorus Magnesium Random Vancomycin 9.5 L 01/01/19 08:30 WBC Hgb Plt Count INR Sodium 138 Potassium 3.7 BUN 35 H Creatinine 4.8 H Calcium 9.1 Phosphorus 4.1 Magnesium 2.4 Random Vancomycin NSR, LVH, NSST cahnges, left axis Echo: Report Reviewed Ejection Fraction %: LVEF > or = 40 % Imaging - Results Chest X-ray: Report Reviewed EKG: Image Reviewed Assessment/Plan DATA: Echo and Pharm MPI done here 07/2018 showed Normal LV fx, LVH, AVS, mild MR/AR with no ischemia on nuclear st IMP: 1. ESRD 2. DM w/ LLE gangrene planned for LE angiogram, possible PTCA and possible future LE amputation 3. HTN RECL 1. There are no absolute cardiac contraindications to planned LE angiography. Coordinate with HD. 2. Overall, BP average is near goal of < 150/90. Cont. current meds. 3. Cont statin and antiplatelet Rx: currently on plavix and atorva 10mg 4. Abx as per PMD and Vascular sx. 5. DVT prophylaxis. Will follow. Thank you.
--- NOTE | 2019-01-01 10:49 | PN ---
Teaching Attending Note Name of Resident: Fernando Kang ATTENDING PHYSICIAN STATEMENT I saw and evaluated the patient. I reviewed the resident's note and discussed the case with the resident. I agree with the resident's findings and plan as documented with exceptions below. SUBJECTIVE: Patient seen and examined. left foot itching, no pain or complaints otherwise. OBJECTIVE: Vital Signs Period Temp Pulse Resp BP Sys/Jha Pulse Ox Last 24 Hr 98.0 F-98.9 F 66-75 18-20 130-175/57-89 Intake & Output 12/29/18 12/30/18 12/31/18 01/01/19 23:59 23:59 23:59 23:59 Intake Total 365 270 930 Balance 365 270 930 Weight 145 lb 1.6 oz 131 lb 5 oz 135 lb 8 oz 136 lb General :sitting in bed in no acute distress Chest: decreased effort, no rales or wheezing Abdomen:Soft, NT Extremities: left foot TMA with granulation tissue/sloughing/some serous discharge, left heel eschar unchanged Home Medications Medication Instructions Recorded Amlodipine Besylate [Norvasc -] 10 mg PO DAILY 08/02/14 Atorvastatin Ca [Lipitor] 10 mg PO HS 03/29/17 Sevelamer Carbonate [Renvela -] 800 mg PO TID 03/29/17 Acetaminophen [Tylenol .Regular 650 mg PO Q4H PRN tablet 08/06/18 Strength -] Clopidogrel Bisulfate [Clopidogrel] 75 mg PO DAILY #30 tablet 08/06/18 Calcium Acetate [Phoslo -] 667 mg PO TID 08/23/18 Ferrous Sulfate 325 mg PO DAILY 08/23/18 Labetalol HCl [Normodyne -] 300 mg PO TID tablet 09/17/18 Sennosides [Senna -] 2 tab PO HS tablet 09/17/18 Home Medication List Medication Instructions Recorded Confirmed Type Amlodipine Besylate [Norvasc -] 10 mg PO DAILY 08/02/14 12/27/18 History Atorvastatin Ca [Lipitor] 10 mg PO HS 03/29/17 12/27/18 History Sevelamer Carbonate [Renvela -] 800 mg PO TID 03/29/17 12/27/18 History Calcium Acetate [Phoslo -] 667 mg PO TID 08/23/18 12/27/18 History Ferrous Sulfate 325 mg PO DAILY 08/23/18 12/27/18 History Active Medications Generic Name Dose Route Start Last Admin Trade Name Zeny PRN Reason Stop Dose Admin Acetaminophen 650 mg 12/27/18 16:15 12/30/18 18:03 Tylenol - PO 650 mg Q4H PRN Administration FEVER Amlodipine Besylate 10 mg 12/28/18 10:00 01/01/19 09:46 Norvasc - PO 10 mg DAILY NOE Administration Atorvastatin Calcium 10 mg 12/27/18 22:00 12/31/18 21:27 Lipitor - PO 10 mg HS NOE Administration Clopidogrel Bisulfate 75 mg 12/27/18 16:30 01/01/19 09:46 Plavix - PO 75 mg DAILY NOE Administration Collagenase 1 applic 12/28/18 11:00 01/01/19 09:46 Santyl - TP 1 applic DAILY NOE Administration Protocol Epoetin Kin 10,000 unit 01/01/19 12:31 Procrit - SQ 01/01/19 12:32 ONCE ONE Ferrous Sulfate 325 mg 12/28/18 10:00 01/01/19 09:46 Feosol - PO 325 mg DAILY NOE Administration Heparin Sodium (Porcine) 5,000 unit 12/27/18 22:00 01/01/19 06:31 Heparin - SQ 5,000 unit TID NOE Administration Piperacillin Sod/Tazobactam 50 mls @ 100 mls/hr 12/28/18 18:00 01/01/19 09:47 Sod 2.25 gm/ Dextrose IVPB 100 mls/hr Q8H-IV NOE Administration Protocol Dextrose/Sodium Chloride 1,000 mls @ 83 mls/hr 12/31/18 16:45 12/31/18 17:32 D5-Ns - IV 83 mls/hr ASDIR NOE Administration Insulin Aspart 1 vial 12/30/18 07:00 01/01/19 06:39 Novolog Vial Sliding Scale - SQ Not Given TIDAC [facility] Protocol Labetalol HCl 300 mg 12/27/18 22:00 01/01/19 06:31 Normodyne - PO 300 mg TID NOE Administration Senna 2 tab 12/27/18 22:00 12/31/18 21:27 Senna - PO 2 tab HS NOE Administration Sevelamer Carbonate 800 mg 12/27/18 17:30 01/01/19 09:46 Renvela - PO 800 mg TIDCM NOE Administration Microbiology 12/27/18 12:00 Blood - Peripheral Venous Blood Culture - Preliminary NO GROWTH OBTAINED AFTER 96 HOURS, INCUBATION TO CONTINUE FOR 1 DAYS. 12/27/18 12:00 Blood - Peripheral Venous Blood Culture - Preliminary NO GROWTH OBTAINED AFTER 96 HOURS, INCUBATION TO CONTINUE FOR 1 DAYS. 12/27/18 14:55 Foot - Right Gram Stain - Final 12/27/18 14:55 Foot - Right Wound Culture - Final Escherichia Coli Staphylococcus Aureus ASSESSMENT AND PLAN: 78 yof with PMHx of ESRD on HD (T,Th,S), HTN, HLD, PVD (s/p left TMA/flap), admitted with Left heel infection concerning for abscess +/- osteomyelitis. -Left heel infection/eschar, +/- osteomyelitis -PVD -s/p Left TMA/flap surgery -ESRD on HD -HTN -HLD -?NIDDM Plan: Zosyn/Vanco renal dosing. Blood cx neg so far, wound cx noted. CTA noted. Vascular surgery input noted. Discussed with Dr. kang, for angiography today. If fails to revascularize, need to address BKA. Cardiology consult for pre-op risk stratification. Continue plavix Follow up podiatry input. ESR/CRP noted. Continue labetalol/amlodipine, hypertensive, start losartan 50 mg daily, discussed with Dr. Smith. HD per renal. Sevelamer/Iron ?NIDDM. Last A1c 4.5, and hypoglycemic here, D5NS while NPO. DVTPPX heparin Dispo pending surgical plans and clinical improvement. Plan discussed with patient and nursing in detail, all questions answered.
--- NOTE | 2019-01-01 11:05 | PN ---
Physical Exam: SUBJECTIVE: Patient seen and examined at bedside. No complaints. No acute events overnight. OBJECTIVE: Vital Signs Temperature 98.4 F 01/01/19 10:00 Pulse Rate 64 01/01/19 10:00 Respiratory Rate 20 01/01/19 10:00 Blood Pressure 143/76 01/01/19 10:00 O2 Sat by Pulse Oximetry (%) 100 01/01/19 09:00 GENERAL: The patient is awake, alert, and fully oriented, in no acute distress. EYES: extraocular movements intact, sclera anicteric, conjunctiva clear. NECK: Trachea midline, full range of motion LUNGS: Breath sounds equal, clear to auscultation bilaterally HEART: Regular rate and rhythm, S1, S2 ABDOMEN: Soft, nontender, nondistended, normoactive bowel sounds EXTREMITIES: RLE with no edema, no skin lesions, no ulcerations. LLE wound noted with eschar of heel and some granulmoatous tissue at forefront of foot at site of amputation. NEUROLOGICAL: Cranial nerves II through XII grossly intact. Normal speech. PSYCH: Normal mood, normal affect. SKIN: Warm, dry, as described above. Laboratory Results - last 24 hr 12/31/18 12/31/18 01/01/19 17:31 20:45 05:58 WBC RBC Hgb Hct MCV MCH MCHC RDW Plt Count MPV Absolute Neuts (auto) Neutrophils % Lymphocytes % Monocytes % Eosinophils % Basophils % Nucleated RBC % Sodium Potassium Chloride Carbon Dioxide Anion Gap BUN Creatinine Est GFR (CKD-EPI)AfAm Est GFR (CKD-EPI)NonAf POC Glucometer 92 110 80 Random Glucose Calcium Phosphorus Magnesium Albumin 01/01/19 01/01/19 08:30 08:30 WBC 14.1 H RBC 3.23 L Hgb 9.3 L Hct 29.1 L MCV 90.2 MCH 28.9 MCHC 32.0 RDW 17.2 H Plt Count 293 MPV 7.1 L Absolute Neuts (auto) 11.1 H Neutrophils % 78.9 Lymphocytes % 10.4 Monocytes % 6.6 Eosinophils % 2.9 Basophils % 1.2 Nucleated RBC % 0 Sodium 138 Potassium 3.7 Chloride 101 Carbon Dioxide 26 Anion Gap 11 BUN 35 H Creatinine 4.8 H Est GFR (CKD-EPI)AfAm 9.31 Est GFR (CKD-EPI)NonAf 8.04 POC Glucometer Random Glucose 77 Calcium 9.1 Phosphorus 4.1 Magnesium 2.4 Albumin 2.2 L Active Medications Generic Name Dose Route Start Last Admin Trade Name Freq PRN Reason Stop Dose Admin Acetaminophen 650 mg 12/27/18 16:15 12/30/18 18:03 Tylenol - PO 650 mg Q4H PRN Administration FEVER Amlodipine Besylate 10 mg 12/28/18 10:00 01/01/19 09:46 Norvasc - PO 10 mg DAILY NOE Administration Atorvastatin Calcium 10 mg 12/27/18 22:00 12/31/18 21:27 Lipitor - PO 10 mg HS NOE Administration Clopidogrel Bisulfate 75 mg 12/27/18 16:30 01/01/19 09:46 Plavix - PO 75 mg DAILY NOE Administration Collagenase 1 applic 12/28/18 11:00 01/01/19 09:46 Santyl - TP 1 applic DAILY NOE Administration Protocol Epoetin Kin 10,000 unit 01/01/19 12:31 Procrit - SQ 01/01/19 12:32 ONCE ONE Ferrous Sulfate 325 mg 12/28/18 10:00 01/01/19 09:46 Feosol - PO 325 mg DAILY NOE Administration Heparin Sodium (Porcine) 5,000 unit 12/27/18 22:00 01/01/19 06:31 Heparin - SQ 5,000 unit TID NOE Administration Piperacillin Sod/Tazobactam 50 mls @ 100 mls/hr 12/28/18 18:00 01/01/19 09:47 Sod 2.25 gm/ Dextrose IVPB 100 mls/hr Q8H-IV NOE Administration Protocol Dextrose/Sodium Chloride 1,000 mls @ 83 mls/hr 12/31/18 16:45 12/31/18 17:32 D5-Ns - IV 83 mls/hr ASDIR NOE Administration Insulin Aspart 1 vial 12/30/18 07:00 01/01/19 06:39 Novolog Vial Sliding Scale - SQ Not Given TIDAC [facility] Protocol Labetalol HCl 300 mg 12/27/18 22:00 01/01/19 06:31 Normodyne - PO 300 mg TID NOE Administration Losartan Potassium 50 mg 01/01/19 11:00 Cozaar - PO DAILY NOE Senna 2 tab 12/27/18 22:00 12/31/18 21:27 Senna - PO 2 tab HS NOE Administration Sevelamer Carbonate 800 mg 12/27/18 17:30 01/01/19 09:46 Renvela - PO 800 mg TIDCM NOE Administration ASSESSMENT/PLAN: 78 y/o M w/PMH of ESRD (T,Th,S), HTN, HLD, PVD (s/p amputation of L toes) presents for wound evaluation on LLE. -LLE ulceration -r/o OM. -c/w abx per ID. ID consulted. -vascular surgery following, podiatry following -daily dressing changes, betadine solution to L heel -air mattress, pressure offloading -per nephro - would be ideal to dialyze patient immediately following angiogram -for angiography today. -ESRD -HD TTS -nephrology following -HD per nephro -c/w renvela, phoslo, iron -HTN -c/w amlodipine, labetalol -losartan 50mg po added -HLD -c/w lipitor -PVD -c/w plavix, lipitor -Possible hx of DM -will monitor glucose here -DVT ppx -Heparin 5000 units q8h -FEN -No fluids -Monitor electrolytes -NPO -Dispo: monitor on m/s Visit type - Emergency Visit Emergency Visit: Yes ED Registration Date: 12/27/18 Care time: The patient presented to the Emergency Department on the above date and was hospitalized for further evaluation of their emergent condition. - New Patient This patient is new to me today: No - Critical Care Critical Care patient: No
[2019-01-01] MEDS ORDERED: LOSARTAN POTASSIUM 50 MG TABLET (FP) PO SCH (11:15)
--- NOTE | 2019-01-01 11:50 | PN ---
Progress Note, Physician History of Present Illness: patient stable doing well no issues - Current Medication List Current Medications: Active Medications Acetaminophen (Tylenol -) 650 mg PO Q4H PRN PRN Reason: FEVER Last Admin: 12/30/18 18:03 Dose: 650 mg Amlodipine Besylate (Norvasc -) 10 mg PO DAILY [facility] Last Admin: 01/01/19 09:46 Dose: 10 mg Atorvastatin Calcium (Lipitor -) 10 mg PO HS [facility] Last Admin: 12/31/18 21:27 Dose: 10 mg Clopidogrel Bisulfate (Plavix -) 75 mg PO DAILY [facility] Last Admin: 01/01/19 09:46 Dose: 75 mg Collagenase (Santyl -) 1 applic TP DAILY [facility]; Protocol Last Admin: 01/01/19 09:46 Dose: 1 applic Epoetin Kin (Procrit -) 10,000 unit SQ ONCE ONE Stop: 01/01/19 12:32 Ferrous Sulfate (Feosol -) 325 mg PO DAILY [facility] Last Admin: 01/01/19 09:46 Dose: 325 mg Heparin Sodium (Porcine) (Heparin -) 5,000 unit SQ TID [facility] Last Admin: 01/01/19 06:31 Dose: 5,000 unit Piperacillin Sod/Tazobactam (Sod 2.25 gm/ Dextrose) 50 mls @ 100 mls/hr IVPB Q8H-IV [facility]; Protocol Last Admin: 01/01/19 09:47 Dose: 100 mls/hr Dextrose/Sodium Chloride (D5-Ns -) 1,000 mls @ 83 mls/hr IV ASDIR [facility] Last Admin: 12/31/18 17:32 Dose: 83 mls/hr Insulin Aspart (Novolog Vial Sliding Scale -) 1 vial SQ TIDAC [facility]; Protocol Last Admin: 01/01/19 06:39 Dose: Not Given Labetalol HCl (Normodyne -) 300 mg PO TID [facility] Last Admin: 01/01/19 06:31 Dose: 300 mg Losartan Potassium (Cozaar -) 50 mg PO DAILY [facility] Senna (Senna -) 2 tab PO HS [facility] Last Admin: 12/31/18 21:27 Dose: 2 tab Sevelamer Carbonate (Renvela -) 800 mg PO TIDCM [facility] Last Admin: 01/01/19 09:46 Dose: 800 mg - Objective Vital Signs: Vital Signs Temperature 98.4 F 01/01/19 10:00 Pulse Rate 64 01/01/19 10:00 Respiratory Rate 20 01/01/19 10:00 Blood Pressure 143/76 01/01/19 10:00 O2 Sat by Pulse Oximetry (%) 100 01/01/19 09:00 Constitutional: Yes: No Distress, Calm Cardiovascular: Yes: S1, S2 Respiratory: Yes: Regular, CTA Bilaterally Gastrointestinal: Yes: Normal Bowel Sounds, Soft Musculoskeletal: Yes: WNL Extremities: Yes: Other Neurological: Yes: Alert, Oriented Psychiatric: Yes: Alert Labs: CBC, BMP 01/01/19 08:30 01/01/19 08:30 INR, PTT INR 1.15 (0.83-1.09) H 12/28/18 06:30 Assessment/Plan 78 yof with PMHx of ESRD on HD (T,Th,S), HTN, HLD, PVD (s/p left TMA/flap), admitted with Left heel infection concerning for abscess +/- osteomyelitis. -Left heel infection, suspicious for abscess, r/o osteomyelitis -PVD -s/p Left TMA/flap surgery -ESRD on HD -HTN -HLD plan continue current mgmt wound care rest as per the team vascular input will decide after that further plan
[2019-01-01 12:17] LABS: HBSAG SCREEN Negative (Negative); HEP B CORE AB, TOT Negative (Negative)
[2019-01-01] MEDS ORDERED: EPOETIN ALFA 10,000 UNIT/1 ML VIAL SQ ONE (12:31)
--- NOTE | 2019-01-01 14:11 | PN ---
Progress Note (short form) - Note Progress Note: FUV right heel and forefoot. Patient resting comfortably. vss, +e.coli, +staph aureus, +dry eschar left heel, +granulating forefoot wound, - mal odor Infected left foot PVD Discussed with vascular. Recommending BKA. Continue wound care. Will follow till dc.
[2019-01-01] MEDS ORDERED: PT OWN MED DRAWER 7, Y5N ONE (15:22)
[2019-01-01] MEDS: DEXTROSE 5%-NORMAL SALINE 1,000 ML IV SCH (15:56)
--- NOTE | 2019-01-01 15:59 | PN ---
Progress Note (short form) - Note Progress Note: Renal follow up for ESRD pt seen and examined at the bedside awake and alert no acute complaints awaiting angiogram no sob, cp, fever, chills, N/V/D NAD RRR, no M/R CTA, no rales or wheeze soft NT/ND trace LE edema, left foot in dressing CBC, BMP 01/01/19 08:30 01/01/19 08:30 Current Medications Acetaminophen (Tylenol -) 650 mg PO Q4H PRN PRN Reason: FEVER Last Admin: 12/30/18 18:03 Dose: 650 mg Amlodipine Besylate (Norvasc -) 10 mg PO DAILY [facility] Last Admin: 01/01/19 09:46 Dose: 10 mg Atorvastatin Calcium (Lipitor -) 10 mg PO HS [facility] Last Admin: 12/31/18 21:27 Dose: 10 mg Clopidogrel Bisulfate (Plavix -) 75 mg PO DAILY [facility] Last Admin: 01/01/19 09:46 Dose: 75 mg Collagenase (Santyl -) 1 applic TP DAILY [facility]; Protocol Last Admin: 01/01/19 09:46 Dose: 1 applic Epoetin Kin (Procrit -) 10,000 unit SQ ONCE ONE Stop: 01/01/19 12:32 Ferrous Sulfate (Feosol -) 325 mg PO DAILY [facility] Last Admin: 01/01/19 09:46 Dose: 325 mg Heparin Sodium (Porcine) (Heparin -) 5,000 unit SQ TID [facility] Last Admin: 01/01/19 06:31 Dose: 5,000 unit Piperacillin Sod/Tazobactam (Sod 2.25 gm/ Dextrose) 50 mls @ 100 mls/hr IVPB Q8H-IV [facility]; Protocol Last Admin: 01/01/19 09:47 Dose: 100 mls/hr Dextrose/Sodium Chloride (D5-Ns -) 1,000 mls @ 83 mls/hr IV ASDIR [facility] Last Admin: 12/31/18 17:32 Dose: 83 mls/hr Insulin Aspart (Novolog Vial Sliding Scale -) 1 vial SQ TIDAC [facility]; Protocol Last Admin: 01/01/19 11:49 Dose: Not Given Labetalol HCl (Normodyne -) 300 mg PO TID [facility] Last Admin: 01/01/19 06:31 Dose: 300 mg Losartan Potassium (Cozaar -) 50 mg PO DAILY NOE Senna (Senna -) 2 tab PO HS NOE Last Admin: 12/31/18 21:27 Dose: 2 tab Sevelamer Carbonate (Renvela -) 800 mg PO TIDCM [facility] Last Admin: 01/01/19 09:46 Dose: 800 mg 78 year old woman with hx of ESRD on HD (TTS, PVD s/p TMA 2018, HTN, DM, hyperlipidemia who presented with left heel wound. Pt reports wound has been itching and had become foul smelling. #LE wound #ESRD on HD #DM #PVD #Hypertension Hd today following angiogram Renal diet, 1.2L fluid restriction Vascular/Podiatry/ID follow up continue wound care f/u cultures Continue antibiotics as per ID continue renvela with meals, trend phos continue amlodipne Losartan added for BP control Asa Smith DO
[2019-01-01] MEDS ORDERED: PROMETHAZINE HCL 25 MG/1 ML VIAL IVPB PRN ×2 (16:52→18:37)
[2019-01-01] MEDS ORDERED: ONDANSETRON 4 MG/2 ML VIAL IVPUSH PRN ×2 (16:52→18:37)
[2019-01-01] MEDS ORDERED: SODIUM CHLORIDE 1,000 ML IV SCH ×2 (17:00→18:37)
[2019-01-01] MEDS ORDERED: HEPARIN NA (PORCINE) 5,000 UNITS/ML 1ML VIAL ONE (17:03)
[2019-01-01] MEDS ORDERED: LIDOCAINE HCL 1%, 10 MG/ML (20ML VIAL) ONE (17:03)
[2019-01-01] MEDS ORDERED: MIDAZOLAM HCL 2 MG/2 ML SINGLE DOSE VIAL ONE (17:32)
[2019-01-01] MEDS ORDERED: SODIUM CHLORIDE 0.9% P/F 10 ML VIAL IJ ONE (17:33)
[2019-01-01] MEDS ORDERED: ceFAZolin SODIUM 1 GM VIAL ONE (17:33)
[2019-01-01] MEDS ORDERED: ceFAZolin SODIUM 1 GM VIAL IVPB ONE (17:35)
[2019-01-01] MEDS ORDERED: METOPROLOL TARTRATE 5 MG/5 ML VIAL ONE (17:39)
[2019-01-01] MEDS ORDERED: LABETALOL HCL 5 MG/1 ML (100MG/20 ML VIAL) ONE (17:50)
--- NOTE | 2019-01-01 18:05 | OP ---
Operative Note - Note: Operative Date: 01/01/19 Pre-Operative Diagnosis: left foot gangrene Operation: Aortogram, LLE angiogram Findings: Good flow to popliteal artery Tibial disease with minimal flow to foot. CTA shows occluded posterior tibial artery Post-Operative Diagnosis: Same as Pre-op Surgeon: Boris Rodriguez Anesthesia: Fractional Estimated Blood Loss (mls): 50
--- NOTE | 2019-01-01 18:08 | PN ---
Progress Note (short form) - Note Progress Note: Vascular Surgery s/P angiogram of left lower ext. Pt with non-healing left TMA. Now with gangrene of heel, foul smelling. Posterior tibial artery is occluded feeding the heel. Minimal flow into foot. Ant tibial artery patent supplying to fore- foot. However not enough to heal gangrene of the heel. Next option is BKA. Pt will heal that operation. Please clear for BKA. Can do on monday. Will speak to pt about her wishes. Boris Rodriguez DO
[2019-01-01] MEDS ORDERED: DEXTROSE 5%-NORMAL SALINE 1,000 ML IV SCH (18:37)
[2019-01-01] MEDS ORDERED: EPOETIN ALFA 10,000 UNIT/1 ML VIAL IVPUSH ONE (22:00)
[2019-01-01] MEDS ORDERED: ATORVASTATIN CA 10 MG TABLET (FP) PO SCH (22:00)
[2019-01-02] MEDS: HEPARIN NA (PORCINE) 5,000 UNITS/ML 1ML VIAL SQ SCH ×3 (06:39→22:10)
[2019-01-02] MEDS: LABETALOL HCL 100 MG TABLET (FP) PO SCH ×4 (06:40→22:10)
[2019-01-02] MEDS: SENNOSIDES 8.6MG TABLET (FP) PO SCH ×2 (06:41→22:10)
[2019-01-02] MEDS: PIPERACILLIN/TAZOB 2.25 GM 2.25 GM in DEXTROSE 5%-WATER - 50 ML IVPB SCH ×3 (06:41→17:51)
[2019-01-02] MEDS: INSULIN SLIDING SCALE (NOVOLOG) 1 VIAL SQ SCH ×3 (06:42→17:51)
[2019-01-02 07:31] LABS: BASO % 0.4 % (0-2.0); EOS % 2.1 % (0-4.5); HEMATOCRIT 30.3 % (32.4-45.2); HEMOGLOBIN 9.5 GM/dL (10.7-15.3); LYMPH % 7.6 % (8-40); MCH 28.4 pg (25.7-33.7); MCHC 31.4 g/dl (32.0-36.0); MEAN CELL VOLUME 90.5 fl (80-96); MEAN PLT VOLUME 7.2 fl (7.5-11.1); MONO % 6.8 % (3.8-10.2); NEUT % 83.1 % (42.8-82.8); PLATELET COUNT 289 K/MM3 (134-434); RBC 3.35 M/mm3 (3.60-5.2); WHITE BLOOD COUNT 11.1 K/mm3 (4.0-10.0)
[2019-01-02 08:24] LABS: ALBUMIN 2.2 g/dl (3.4-5.0); CALCIUM 9.1 mg/dL (8.5-10.1); CREATININE 2.5 mg/dL (0.55-1.3); PHOSPHOROUS 2.2 mg/dL (2.5-4.9); POTASSIUM 3.4 mmol/L (3.5-5.1)
[2019-01-02] MEDS: SEVELAMER CARBONATE 800 MG TAB (FP) PO SCH ×3 (09:00→17:51)
--- NOTE | 2019-01-02 09:08 | PN ---
Progress Note, Physician Chief Complaint: s/p left lower extremity angiogram post op day one History of Present Illness: under sedation anesthesia - Current Medication List Current Medications: Active Medications Acetaminophen (Tylenol -) 650 mg PO Q4H PRN PRN Reason: FEVER Amlodipine Besylate (Norvasc -) 10 mg PO DAILY [facility] Atorvastatin Calcium (Lipitor -) 10 mg PO HS [facility] Last Admin: 01/02/19 06:39 Dose: 10 mg Clopidogrel Bisulfate (Plavix -) 75 mg PO DAILY [facility] Collagenase (Santyl -) 1 applic TP DAILY [facility]; Protocol Fentanyl (Sublimaze Injection -) 50 mcg IVPUSH [id number] PRN PRN Reason: PAIN-PACU ORDER X 4 DOSES ONLY Ferrous Sulfate (Feosol -) 325 mg PO DAILY [facility] Heparin Sodium (Porcine) (Heparin -) 5,000 unit SQ TID [facility] Last Admin: 01/02/19 06:39 Dose: 5,000 unit Dextrose/Sodium Chloride (D5-Ns -) 1,000 mls @ 83 mls/hr IV ASDIR [facility] Last Admin: 01/01/19 19:30 Dose: 0 mls Piperacillin Sod/Tazobactam (Sod 2.25 gm/ Dextrose) 50 mls @ 100 mls/hr IVPB Q8H-IV [facility]; Protocol Last Admin: 01/02/19 06:41 Dose: 100 mls/hr Insulin Aspart (Novolog Vial Sliding Scale -) 1 vial SQ TIDAC [facility]; Protocol Last Admin: 01/02/19 06:42 Dose: Not Given Labetalol HCl (Normodyne -) 300 mg PO TID [facility] Last Admin: 01/02/19 06:41 Dose: 300 mg Losartan Potassium (Cozaar -) 50 mg PO DAILY [facility] Ondansetron HCl (Zofran Injection) 4 mg IVPUSH Q6H PRN PRN Reason: NAUSEA AND/OR VOMITING Promethazine HCl (Phenergan Injection -) 12.5 mg IVPB Q6H PRN PRN Reason: NAUSEA-FOR RESCUE AFTER 15 MIN Senna (Senna -) 2 tab PO HS [facility] Last Admin: 01/02/19 06:41 Dose: 2 tab Sevelamer Carbonate (Renvela -) 800 mg PO TIDCM [facility] - Objective Vital Signs: Vital Signs Temperature 98.4 F 01/02/19 06:41 Pulse Rate 68 01/02/19 06:41 Respiratory Rate 20 01/02/19 06:41 Blood Pressure 170/74 01/02/19 06:41 O2 Sat by Pulse Oximetry (%) 100 01/01/19 19:15 Constitutional: Yes: Well Nourished Cardiovascular: Yes: WNL Respiratory: Yes: WNL Gastrointestinal: Yes: WNL Labs: CBC, BMP 01/02/19 06:30 01/02/19 06:30 INR, PTT INR 1.15 (0.83-1.09) H 12/28/18 06:30 Assessment/Plan No adverse effects of anesthetic, no nausea or vomiting, dept of anesthesia will sign off care at this time.
[2019-01-02] MEDS ORDERED: amLODIPine BESYLATE 10 MG TABLET (FP) PO SCH (10:00)
[2019-01-02] MEDS ORDERED: DEXTROSE 5%-WATER - 50 ML IVPB ONE ×2 (10:23→17:19)
[2019-01-02] MEDS ORDERED: PIPERACILLIN/TAZOBACTAM 2.25 GM VIAL IVPB ONE ×2 (10:23→17:19)
--- NOTE | 2019-01-02 10:28 | PN ---
Progress Note (short form) - Note Progress Note: Vascular Surgery: PT without complaints of left foot pain today. Vital Signs Period Temp Pulse Resp BP Sys/Jha Pulse Ox Last 24 Hr 98.0 F-98.9 F 55-68 14-20 136-187/54-104 98-100 GEN: A&0x3, NAD Right groin: no evidence of ecchymosis/bleeding. Left foot dressing dry and intact. CBC, BMP 01/02/19 06:30 01/02/19 06:30 A/P: 78 yo female left foot gangrene s/p aortogram/LLE angiogram / Michael to speak with the family, minimal blood flow in the extremity and planning for Left BKA if the family agrees. Please medically optimize the patient. Surgery to follow D/w Dr. Rodriguez
[2019-01-02] MEDS: LOSARTAN POTASSIUM 50 MG TABLET (FP) PO SCH (10:41)
[2019-01-02] MEDS: FERROUS SO4 325 MG TABLET (FP) PO SCH (10:41)
[2019-01-02] MEDS: CLOPIDOGREL BISULFATE 75 MG TABLET (FP) PO SCH (10:42)
[2019-01-02] MEDS: COLLAGENASE CLOSTRIDIUM HIST. 30 GRAMS TUBE TP SCH (10:58)
--- NOTE | 2019-01-02 10:58 | PN ---
Progress Note, Physician Chief Complaint: No CP or SOB History of Present Illness: Had angio, BKA recommended by Vascular sx - Current Medication List Current Medications: Active Medications Acetaminophen (Tylenol -) 650 mg PO Q4H PRN PRN Reason: FEVER Amlodipine Besylate (Norvasc -) 10 mg PO DAILY [facility] Last Admin: 01/02/19 10:41 Dose: 10 mg Atorvastatin Calcium (Lipitor -) 10 mg PO HS [facility] Last Admin: 01/02/19 06:39 Dose: 10 mg Clopidogrel Bisulfate (Plavix -) 75 mg PO DAILY [facility] Last Admin: 01/02/19 10:42 Dose: 75 mg Collagenase (Santyl -) 1 applic TP DAILY [facility]; Protocol Fentanyl (Sublimaze Injection -) 50 mcg IVPUSH [id number] PRN PRN Reason: PAIN-PACU ORDER X 4 DOSES ONLY Ferrous Sulfate (Feosol -) 325 mg PO DAILY [facility] Last Admin: 01/02/19 10:41 Dose: 325 mg Heparin Sodium (Porcine) (Heparin -) 5,000 unit SQ TID [facility] Last Admin: 01/02/19 06:39 Dose: 5,000 unit Dextrose/Sodium Chloride (D5-Ns -) 1,000 mls @ 83 mls/hr IV ASDIR [facility] Last Admin: 01/01/19 19:30 Dose: 0 mls Piperacillin Sod/Tazobactam (Sod 2.25 gm/ Dextrose) 50 mls @ 100 mls/hr IVPB Q8H-IV [facility]; Protocol Last Admin: 01/02/19 10:42 Dose: 100 mls/hr Insulin Aspart (Novolog Vial Sliding Scale -) 1 vial SQ TIDAC [facility]; Protocol Last Admin: 01/02/19 06:42 Dose: Not Given Labetalol HCl (Normodyne -) 300 mg PO TID [facility] Last Admin: 01/02/19 06:41 Dose: 300 mg Losartan Potassium (Cozaar -) 50 mg PO DAILY [facility] Last Admin: 01/02/19 10:41 Dose: 50 mg Ondansetron HCl (Zofran Injection) 4 mg IVPUSH Q6H PRN PRN Reason: NAUSEA AND/OR VOMITING Promethazine HCl (Phenergan Injection -) 12.5 mg IVPB Q6H PRN PRN Reason: NAUSEA-FOR RESCUE AFTER 15 MIN Senna (Senna -) 2 tab PO HS [facility] Last Admin: 01/02/19 06:41 Dose: 2 tab Sevelamer Carbonate (Renvela -) 800 mg PO TIDCM [facility] Last Admin: 01/02/19 09:00 Dose: 800 mg - Objective Vital Signs: Vital Signs Temperature 98.4 F 01/02/19 06:41 Pulse Rate 68 01/02/19 06:41 Respiratory Rate 20 01/02/19 06:41 Blood Pressure 170/74 01/02/19 06:41 O2 Sat by Pulse Oximetry (%) 100 01/01/19 19:15 Constitutional: Yes: No Distress Cardiovascular: Yes: Regular Rate and Rhythm Respiratory: Yes: CTA Bilaterally Gastrointestinal: Yes: Soft Edema: No Labs: CBC, BMP 01/02/19 06:30 01/02/19 06:30 INR, PTT INR 1.15 (0.83-1.09) H 12/28/18 06:30 Laboratory Tests 01/02/19 01/02/19 06:30 06:30 WBC 11.1 H Hgb 9.5 L Plt Count 289 Sodium 138 Potassium 3.4 L BUN 11 Creatinine 2.5 H Assessment/Plan Assessment/Plan DATA: Echo and Pharm MPI done here 07/2018 showed Normal LV fx, LVH, AVS, mild MR/AR with no ischemia on nuclear st IMP: 1. ESRD 2. 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 3. HTN RECL 1. There are no absolute cardiac contraindications to planned BKA, if family agrees Coordinate with HD. 2. Overall, BP is slightly above goal. Will switch Amlodipine to Procardia XL 30mg BID 3. Cont statin and antiplatelet Rx: currently on plavix and atorva 10mg. Hold antiplatelet Rx as per Vascular prior to BKA 4. Abx as per PMD and Vascular sx. 5. DVT prophylaxis.
--- NOTE | 2019-01-02 11:43 | PN ---
Progress Note, Physician History of Present Illness: patient stable doing well no issues - Current Medication List Current Medications: Active Medications Acetaminophen (Tylenol -) 650 mg PO Q4H PRN PRN Reason: FEVER Atorvastatin Calcium (Lipitor -) 10 mg PO HS [facility] Clopidogrel Bisulfate (Plavix -) 75 mg PO DAILY [facility] Last Admin: 01/02/19 10:42 Dose: 75 mg Collagenase (Santyl -) 1 applic TP DAILY [facility]; Protocol Last Admin: 01/02/19 10:58 Dose: 1 applic Fentanyl (Sublimaze Injection -) 50 mcg IVPUSH [id number] PRN PRN Reason: PAIN-PACU ORDER X 4 DOSES ONLY Ferrous Sulfate (Feosol -) 325 mg PO DAILY [facility] Last Admin: 01/02/19 10:41 Dose: 325 mg Heparin Sodium (Porcine) (Heparin -) 5,000 unit SQ TID [facility] Last Admin: 01/02/19 06:39 Dose: 5,000 unit Piperacillin Sod/Tazobactam (Sod 2.25 gm/ Dextrose) 50 mls @ 100 mls/hr IVPB Q8H-IV [facility]; Protocol Last Admin: 01/02/19 10:42 Dose: 100 mls/hr Insulin Aspart (Novolog Vial Sliding Scale -) 1 vial SQ TIDAC [facility]; Protocol Last Admin: 01/02/19 06:42 Dose: Not Given Labetalol HCl (Normodyne -) 300 mg PO TID [facility] Last Admin: 01/02/19 06:41 Dose: 300 mg Losartan Potassium (Cozaar -) 50 mg PO DAILY [facility] Last Admin: 01/02/19 10:41 Dose: 50 mg Nifedipine (Procardia Xl -) 30 mg PO BID [facility] Ondansetron HCl (Zofran Injection) 4 mg IVPUSH Q6H PRN PRN Reason: NAUSEA AND/OR VOMITING Promethazine HCl (Phenergan Injection -) 12.5 mg IVPB Q6H PRN PRN Reason: NAUSEA-FOR RESCUE AFTER 15 MIN Senna (Senna -) 2 tab PO HS [facility] Last Admin: 01/02/19 06:41 Dose: 2 tab Sevelamer Carbonate (Renvela -) 800 mg PO TIDCM [facility] Last Admin: 01/02/19 09:00 Dose: 800 mg - Objective Vital Signs: Vital Signs Temperature 98.4 F 01/02/19 06:41 Pulse Rate 68 05/29/19 06:41 Respiratory Rate 20 01/02/19 06:41 Blood Pressure 170/74 01/02/19 06:41 O2 Sat by Pulse Oximetry (%) 100 01/01/19 19:15 Constitutional: Yes: No Distress, Calm Cardiovascular: Yes: S1, S2 Respiratory: Yes: Regular, CTA Bilaterally Gastrointestinal: Yes: Normal Bowel Sounds, Soft Musculoskeletal: Yes: WNL Extremities: Yes: Other Wound/Incision: Yes: Dressing Dry and Intact Neurological: Yes: Alert, Oriented Psychiatric: Yes: Alert, Oriented Labs: CBC, BMP 01/02/19 06:30 01/02/19 06:30 INR, PTT INR 1.15 (0.83-1.09) H 12/28/18 06:30 Assessment/Plan 78 yof with PMHx of ESRD on HD (T,Th,S), HTN, HLD, PVD (s/p left TMA/flap), admitted with Left heel infection concerning for abscess +/- osteomyelitis. -Left heel infection, suspicious for abscess, r/o osteomyelitis -PVD -s/p Left TMA/flap surgery -ESRD on HD -HTN -HLD plan continue current mgmt wound care rest as per the team vascular input will decide after that further plan
--- NOTE | 2019-01-02 11:55 | PN ---
Physical Exam: SUBJECTIVE: Patient seen and examined at bedside. No complaints. Had LLE angiogram yesterday. OBJECTIVE: Vital Signs Temperature 98.4 F 01/02/19 06:41 Pulse Rate 68 01/02/19 06:41 Respiratory Rate 20 01/02/19 06:41 Blood Pressure 170/74 01/02/19 06:41 O2 Sat by Pulse Oximetry (%) 100 01/01/19 19:15 GENERAL: The patient is awake, alert, and fully oriented, in no acute distress. EYES: extraocular movements intact, sclera anicteric, conjunctiva clear. NECK: Trachea midline, full range of motion LUNGS: Breath sounds equal, clear to auscultation bilaterally HEART: Regular rate and rhythm, S1, S2 ABDOMEN: Soft, nontender, nondistended, normoactive bowel sounds EXTREMITIES: RLE with no edema, no skin lesions, no ulcerations. LLE wound noted with eschar of heel and some granulmoatous tissue at forefront of foot at site of amputation. NEUROLOGICAL: Cranial nerves II through XII grossly intact. Normal speech. PSYCH: Normal mood, normal affect. SKIN: Warm, dry, as described above. Laboratory Results - last 24 hr 12/29/18 01/01/19 01/02/19 16:00 11:47 06:30 WBC 11.1 H RBC 3.35 L Hgb 9.5 L Hct 30.3 L MCV 90.5 MCH 28.4 MCHC 31.4 L RDW 17.0 H Plt Count 289 MPV 7.2 L Absolute Neuts (auto) 9.2 H Neutrophils % 83.1 H Lymphocytes % 7.6 L D Monocytes % 6.8 Eosinophils % 2.1 Basophils % 0.4 Nucleated RBC % 0 Sodium Potassium Chloride Carbon Dioxide Anion Gap BUN Creatinine Est GFR (CKD-EPI)AfAm Est GFR (CKD-EPI)NonAf POC Glucometer 89 Random Glucose Calcium Phosphorus Magnesium Albumin Hepatitis A Ab Total Negative Hep Bs Antigen Negative Hep Bs Antibody Reactive Hep B Core Total Ab Negative Hep C Ab Diagnostic <0.1 01/02/19 01/02/19 06:30 06:37 WBC RBC Hgb Hct MCV MCH MCHC RDW Plt Count MPV Absolute Neuts (auto) Neutrophils % Lymphocytes % Monocytes % Eosinophils % Basophils % Nucleated RBC % Sodium 138 Potassium 3.4 L Chloride 100 Carbon Dioxide 31 Anion Gap 7 L BUN 11 Creatinine 2.5 H Est GFR (CKD-EPI)AfAm 20.49 Est GFR (CKD-EPI)NonAf 17.68 POC Glucometer 102 Random Glucose 106 Calcium 9.1 Phosphorus 2.2 L Magnesium 2.0 Albumin 2.2 L Hepatitis A Ab Total Hep Bs Antigen Hep Bs Antibody Hep B Core Total Ab Hep C Ab Diagnostic Active Medications Generic Name Dose Route Start Last Admin Trade Name Freq PRN Reason Stop Dose Admin Acetaminophen 650 mg 01/01/19 18:37 Tylenol - PO Q4H PRN FEVER Atorvastatin Calcium 10 mg 01/02/19 22:00 Lipitor - PO HS [facility] Clopidogrel Bisulfate 75 mg 01/02/19 10:00 01/02/19 10:42 Plavix - PO 75 mg DAILY [facility] Administration Collagenase 1 applic 01/02/19 10:00 01/02/19 10:58 Santyl - TP 1 applic DAILY [facility] Administration Protocol Fentanyl 50 mcg 01/01/19 18:37 Sublimaze Injection - IVPUSH [id number] PRN PAIN-PACU ORDER X 4 DOSES ONLY Ferrous Sulfate 325 mg 01/02/19 10:00 01/02/19 10:41 Feosol - PO 325 mg DAILY [facility] Administration Heparin Sodium (Porcine) 5,000 unit 01/01/19 22:00 01/02/19 06:39 Heparin - SQ 5,000 unit TID [facility] Administration Piperacillin Sod/Tazobactam 50 mls @ 100 mls/hr 01/02/19 02:00 01/02/19 10:42 Sod 2.25 gm/ Dextrose IVPB 100 mls/hr Q8H-IV [facility] Administration Protocol Insulin Aspart 1 vial 01/02/19 07:00 01/02/19 06:42 Novolog Vial Sliding Scale - SQ Not Given TIDAC [facility] Protocol Labetalol HCl 300 mg 01/01/19 22:00 01/02/19 06:41 Normodyne - PO 300 mg TID [facility] Administration Losartan Potassium 50 mg 01/02/19 10:00 01/02/19 10:41 Cozaar - PO 50 mg DAILY [facility] Administration Nifedipine 30 mg 01/02/19 22:00 Procardia Xl - PO BID [facility] Ondansetron HCl 4 mg 01/01/19 18:37 Zofran Injection IVPUSH Q6H PRN NAUSEA AND/OR VOMITING Promethazine HCl 12.5 mg 01/01/19 18:37 Phenergan Injection - IVPB Q6H PRN NAUSEA-FOR RESCUE AFTER 15 MIN Senna 2 tab 01/01/19 22:00 01/02/19 06:41 Senna - PO 2 tab HS [facility] Administration Sevelamer Carbonate 800 mg 01/02/19 08:00 01/02/19 09:00 Renvela - PO 800 mg TIDCM [facility] Administration ASSESSMENT/PLAN: 78 y/o M w/PMH of ESRD (T,Th,S), HTN, HLD, PVD (s/p amputation of L toes) presents for wound evaluation on LLE. -LLE ulceration -r/o OM. -c/w zosyn per ID. -vascular surgery following, podiatry following -daily dressing changes, betadine solution to L heel -air mattress, pressure offloading -per nephro - would be ideal to dialyze patient immediately following angiogram -angiogram 01/01/19 - minimal blood flow to LLE. -Surgery plans for BKA pending patient/family consent -ESRD -HD TTS -nephrology following -HD per nephro -c/w renvela, phoslo, iron -HTN -c/w labetalol -losartan 50mg po -now on nifidepine XL 30 mg bid -fluids stopped. monitor BP -HLD -c/w lipitor -PVD -c/w plavix, lipitor -Possible hx of DM -will monitor glucose here -DVT ppx -Heparin 5000 units q8h -FEN -No fluids -Monitor electrolytes -diabetic/sodium diet -Dispo: monitor on m/s Visit type - Emergency Visit Emergency Visit: Yes ED Registration Date: 12/27/18 Care time: The patient presented to the Emergency Department on the above date and was hospitalized for further evaluation of their emergent condition. - New Patient This patient is new to me today: No - Critical Care Critical Care patient: No
--- NOTE | 2019-01-02 12:37 | PN ---
Teaching Attending Note Name of Resident: Fernando Rodriguez ATTENDING PHYSICIAN STATEMENT I saw and evaluated the patient. I reviewed the resident's note and discussed the case with the resident. I agree with the resident's findings and plan as documented. SUBJECTIVE: Ms Crain says she is feeling well and is without complaint. Denies cp, sob, n/v. OBJECTIVE: Last Vital Signs Temp Pulse Resp BP Pulse Ox 36.9 C 68 20 170/74 100 01/02/19 06:41 01/02/19 06:41 01/02/19 06:41 01/02/19 06:41 01/01/19 19:15 Gen: nad Pulm: ctab w/o w/r/r CV: rrr w/o m/r/g Abd: +bs, s/nt/nd Ext: L foot wrapped CBC, BMP 01/02/19 06:30 01/02/19 06:30 ASSESSMENT AND PLAN: Problem List - Problems (1) Osteomyelitis Assessment/Plan: -vascular surgery following -very poor blood flow to the L foot -planning on L BKA if patient/family agrees -continue zosyn Code(s): M86.9 - OSTEOMYELITIS, UNSPECIFIED (2) Foot ulcer Assessment/Plan: -as above Code(s): L97.509 - NON-PRESSURE CHRONIC ULCER OTH PRT UNSP FOOT W UNSP SEVERITY Qualifiers: Laterality: left Non-pressure ulcer stage: unspecified non-pressure ulcer stage Qualified Code(s): L97.529 - Non-pressure chronic ulcer of other part of left foot with unspecified severity (3) ESRD (end stage renal disease) on dialysis Assessment/Plan: -continue HD -Dr Smith following and case discussed Code(s): N18.6 - END STAGE RENAL DISEASE; Z99.2 - DEPENDENCE ON RENAL DIALYSIS (4) Hypertension Assessment/Plan: -continue losartan, labetalol, and nifedipine -controlled after receiving medications this am Code(s): I10 - ESSENTIAL (PRIMARY) HYPERTENSION Qualifiers: Hypertension type: essential hypertension Qualified Code(s): I10 - Essential (primary) hypertension (5) Anemia Assessment/Plan: -at baseline Code(s): D64.9 - ANEMIA, UNSPECIFIED Qualifiers: Anemia type: due to chronic kidney disease Chronic kidney disease stage: on chronic dialysis Qualified Code(s): N18.6 - End stage renal disease; D63.1 - Anemia in chronic kidney disease; Z99.2 - Dependence on renal dialysis (6) Diabetes Assessment/Plan: -continue diabetic diet -continue SSI Code(s): E11.9 - TYPE 2 DIABETES MELLITUS WITHOUT COMPLICATIONS Qualifiers: Diabetes mellitus type: type 2 Diabetes mellitus assisted insulin use: without assisted use Diabetes mellitus complication status: with kidney complications Diabetes mellitus complication detail: with chronic kidney disease Chronic kidney disease stage: on chronic dialysis Qualified Code(s) : E11.22 - Type 2 diabetes mellitus with diabetic chronic kidney disease; N18.6 - End stage renal disease; Z99.2 - Dependence on renal dialysis (7) Hyperlipidemia Assessment/Plan: -continue statin Code(s): E78.5 - HYPERLIPIDEMIA, UNSPECIFIED Qualifiers: Hyperlipidemia type: pure hypercholesterolemia Qualified Code(s): E78.00 - Pure hypercholesterolemia, unspecified; E78.0 - Pure hypercholesterolemia (8) PAD (peripheral artery disease) Assessment/Plan: -on plavix -will need to hold for surgery Code(s): I73.9 - PERIPHERAL VASCULAR DISEASE, UNSPECIFIED (9) Hypokalemia Assessment/Plan: -nephrology following Code(s): E87.6 - HYPOKALEMIA
--- NOTE | 2019-01-02 14:48 | OP ---
DATE OF OPERATION: 01/01/2019 PREOPERATIVE DIAGNOSIS: Left foot gangrene. POSTOPERATIVE DIAGNOSIS: Left foot gangrene. PROCEDURE: Aortogram, left lower extremity angiogram. SURGEON: Boris Blake DO ANESTHESIA: Fractional. BLOOD LOSS: 50 mL. The patient is a 78-year-old female that comes in with a nonhealing TMA performed months ago and now has left heel gangrene that is foul smelling. Preoperative CTA shows minimal flow in the tibial arteries and runoff showing the anterior tibial artery. It was decided that we would try to see if we can open the posterior tibial artery and give the patient more runoff. The patient was consented for the procedure understanding all risks, benefits and alternatives and was then brought to the operating room. Once in the operating room she was placed on the operating table in the supine manner and the areas of the right and left groin were prepped and draped in a sterile surgical manner. We then went ahead and injected 5 mL of lidocaine 1% over the right common femoral artery. We then took our Micropuncture needle, punctured the right common femoral artery. Micropuncture wire was inserted. Micropuncture sheath was inserted and a traditional 5-[place] sheath was inserted floppy guidewire up into the aorta followed by an Omni Flush catheter. We then shot an aortogram showing that the iliacs were extremely tortuous and the aorta and the iliac arteries were without any disease. We then went to the left groin and shot an angiogram again to the aorta showing that the iliac artery was patent, the common femoral artery was patent, the profunda was patent, the SFA was patent, the popliteal artery was patent, the TP trunk was patent and beyond that there was severe disease, the AT seems like it is patent, posterior tibial artery was occluded. There is no peroneal artery and at this point we decided that due to where the lesion for her is located on her heel and she has minimal to no flow there, the best operation for her would be a BKA considering how sick she is and she is nonambulatory and the area is completely foul smelling. At this point we brought our Omni Flush catheter up and out. We removed our sheath. Pressure was held over the right groin for 5 minutes. After that there was no more bleeding. The area was wet and dried and Dermabond was placed. Patient tolerated the procedure with no complications. Patient transferred to PACU in stable condition. Total blood loss 50 mL. BORIS BLAKE DO [id number]
--- NOTE | 2019-01-02 16:15 | PN ---
Progress Note (short form) - Note Progress Note: Renal follow up for ESRD pt seen and examined at the bedside awake and alert no acute complaints no sob, cp, abd pain, fever, chills s/p angiogram yesterday Vital Signs Temperature 98.3 F 01/02/19 10:00 Pulse Rate 65 01/02/19 10:00 Respiratory Rate 18 01/02/19 10:00 Blood Pressure 140/56 L 01/02/19 10:00 O2 Sat by Pulse Oximetry (%) 100 01/01/19 19:15 Intake & Output 12/30/18 12/31/18 01/01/19 01/02/19 23:59 23:59 23:59 23:59 Intake Total 270 930 300 498 Output Total 0 Balance 270 930 300 498 Weight 59.562 kg 61.462 kg 61.689 kg 62.681 kg NAD RRR, no M/R CTA, no rales or wheeze soft NT/ND trace LE edema, left foot in dressing CBC, BMP 01/02/19 06:30 01/02/19 06:30 Current Medications Acetaminophen (Tylenol -) 650 mg PO Q4H PRN PRN Reason: FEVER Atorvastatin Calcium (Lipitor -) 10 mg PO HS [facility] Clopidogrel Bisulfate (Plavix -) 75 mg PO DAILY [facility] Last Admin: 01/02/19 10:42 Dose: 75 mg Collagenase (Santyl -) 1 applic TP DAILY [facility]; Protocol Last Admin: 01/02/19 10:58 Dose: 1 applic Fentanyl (Sublimaze Injection -) 50 mcg IVPUSH [id number] PRN PRN Reason: PAIN-PACU ORDER X 4 DOSES ONLY Ferrous Sulfate (Feosol -) 325 mg PO DAILY [facility] Last Admin: 01/02/19 10:41 Dose: 325 mg Heparin Sodium (Porcine) (Heparin -) 5,000 unit SQ TID [facility] Last Admin: 01/02/19 14:09 Dose: 5,000 unit Piperacillin Sod/Tazobactam (Sod 2.25 gm/ Dextrose) 50 mls @ 100 mls/hr IVPB Q8H-IV [facility]; Protocol Last Admin: 01/02/19 10:42 Dose: 100 mls/hr Insulin Aspart (Novolog Vial Sliding Scale -) 1 vial SQ TIDAC [facility]; Protocol Last Admin: 01/02/19 12:15 Dose: Not Given Labetalol HCl (Normodyne -) 300 mg PO TID [facility] Last Admin: 01/02/19 14:08 Dose: 300 mg Losartan Potassium (Cozaar -) 50 mg PO DAILY [facility] Last Admin: 01/02/19 10:41 Dose: 50 mg Nifedipine (Procardia Xl -) 30 mg PO BID [facility] Ondansetron HCl (Zofran Injection) 4 mg IVPUSH Q6H PRN PRN Reason: NAUSEA AND/OR VOMITING Promethazine HCl (Phenergan Injection -) 12.5 mg IVPB Q6H PRN PRN Reason: NAUSEA-FOR RESCUE AFTER 15 MIN Senna (Senna -) 2 tab PO HS [facility] Last Admin: 01/02/19 06:41 Dose: 2 tab Sevelamer Carbonate (Renvela -) 800 mg PO TIDCM [facility] Last Admin: 01/02/19 12:17 Dose: 800 mg 78 year old woman with hx of ESRD on HD (TTS, PVD s/p TMA 2018, HTN, DM, hyperlipidemia who presented with left heel wound. Pt reports wound has been itching and had become foul smelling. #LE wound #ESRD on HD #DM #PVD #Hypertension no indication for TRIMMER MEAT today, next dialysis planned for tomorrow wound care Vascular/Podiatry/ID follow up possible amputation Continue antibiotics as per ID continue renvela with meals, trend phos continue amlodipine, losartan Asa Smith DO
[2019-01-02] MEDS: NIFEdipine E.R. 30 MG TABLET (FP) PO SCH (22:10)
[2019-01-02] MEDS: ATORVASTATIN CA 10 MG TABLET (FP) PO SCH (22:10)
[2019-01-03] MEDS ORDERED: PIPERACILLIN/TAZOBACTAM 2.25 GM VIAL IVPB ONE ×3 (01:04→21:05)
[2019-01-03] MEDS ORDERED: DEXTROSE 5%-WATER - 50 ML IVPB ONE ×3 (01:05→21:05)
[2019-01-03] MEDS: PIPERACILLIN/TAZOB 2.25 GM 2.25 GM in DEXTROSE 5%-WATER - 50 ML IVPB SCH ×4 (01:20→21:22)
[2019-01-03] MEDS: LABETALOL HCL 100 MG TABLET (FP) PO SCH ×3 (06:03→21:09)
[2019-01-03] MEDS: HEPARIN NA (PORCINE) 5,000 UNITS/ML 1ML VIAL SQ SCH ×3 (06:03→21:10)
[2019-01-03] MEDS: INSULIN SLIDING SCALE (NOVOLOG) 1 VIAL SQ SCH ×3 (06:07→17:02)
[2019-01-03 08:07] LABS: ALBUMIN 2.2 g/dl (3.4-5.0); CALCIUM 8.9 mg/dL (8.5-10.1); CREATININE 3.3 mg/dL (0.55-1.3); HEMATOCRIT 28.4 % (32.4-45.2); HEMOGLOBIN 9.1 GM/dL (10.7-15.3); MCH 29.2 pg (25.7-33.7); MCHC 32.1 g/dl (32.0-36.0); MEAN CELL VOLUME 91.1 fl (80-96); MEAN PLT VOLUME 7.1 fl (7.5-11.1); PHOSPHOROUS 2.8 mg/dL (2.5-4.9); PLATELET COUNT 279 K/MM3 (134-434); POTASSIUM 3.5 mmol/L (3.5-5.1); RBC 3.12 M/mm3 (3.60-5.2); RDW 17.3 % (11.6-15.6); WHITE BLOOD COUNT 11.6 K/mm3 (4.0-10.0)
[2019-01-03] MEDS ORDERED: PT OWN MED DRAWER 7, Y5N ONE (08:27)
--- NOTE | 2019-01-03 09:24 | PN ---
Progress Note (short form) - Note Progress Note: Vascular Surgery Pt for left bka zenobia. Please clear for surgery NPO past midnight Boris Rodriguez DO
[2019-01-03] MEDS: SEVELAMER CARBONATE 800 MG TAB (FP) PO SCH ×3 (09:44→17:03)
[2019-01-03] MEDS: LOSARTAN POTASSIUM 50 MG TABLET (FP) PO SCH (09:44)
[2019-01-03] MEDS: FERROUS SO4 325 MG TABLET (FP) PO SCH (09:45)
[2019-01-03] MEDS: NIFEdipine E.R. 30 MG TABLET (FP) PO SCH ×2 (09:45→21:10)
[2019-01-03] MEDS: COLLAGENASE CLOSTRIDIUM HIST. 30 GRAMS TUBE TP SCH (09:47)
[2019-01-03] MEDS: CLOPIDOGREL BISULFATE 75 MG TABLET (FP) PO SCH (09:53)
[2019-01-03] MEDS: ACETAMINOPHEN 325 MG TABLET (FP) PO PRN (09:53)
--- NOTE | 2019-01-03 10:50 | PN ---
Progress Note, Physician Chief Complaint: no new issues vascular plan noted - Current Medication List Current Medications: Active Medications Acetaminophen (Tylenol -) 650 mg PO Q4H PRN PRN Reason: FEVER Last Admin: 01/03/19 09:53 Dose: 650 mg Atorvastatin Calcium (Lipitor -) 10 mg PO HS [facility] Last Admin: 01/02/19 22:10 Dose: 10 mg Clopidogrel Bisulfate (Plavix -) 75 mg PO DAILY [facility] Last Admin: 01/03/19 09:53 Dose: 75 mg Collagenase (Santyl -) 1 applic TP DAILY [facility]; Protocol Last Admin: 01/03/19 09:47 Dose: 1 applic Fentanyl (Sublimaze Injection -) 50 mcg IVPUSH [id number] PRN PRN Reason: PAIN-PACU ORDER X 4 DOSES ONLY Ferrous Sulfate (Feosol -) 325 mg PO DAILY [facility] Last Admin: 01/03/19 09:45 Dose: 325 mg Heparin Sodium (Porcine) (Heparin -) 5,000 unit SQ TID [facility] Last Admin: 01/03/19 06:03 Dose: 5,000 unit Piperacillin Sod/Tazobactam (Sod 2.25 gm/ Dextrose) 50 mls @ 100 mls/hr IVPB Q8H-IV [facility]; Protocol Last Admin: 01/03/19 09:48 Dose: 100 mls/hr Insulin Aspart (Novolog Vial Sliding Scale -) 1 vial SQ TIDAC [facility]; Protocol Last Admin: 01/03/19 06:07 Dose: Not Given Labetalol HCl (Normodyne -) 300 mg PO TID [facility] Last Admin: 01/03/19 06:03 Dose: 300 mg Losartan Potassium (Cozaar -) 50 mg PO DAILY [facility] Last Admin: 01/03/19 09:44 Dose: 50 mg Nifedipine (Procardia Xl -) 30 mg PO BID [facility] Last Admin: 01/03/19 09:45 Dose: 30 mg Ondansetron HCl (Zofran Injection) 4 mg IVPUSH Q6H PRN PRN Reason: NAUSEA AND/OR VOMITING Promethazine HCl (Phenergan Injection -) 12.5 mg IVPB Q6H PRN PRN Reason: NAUSEA-FOR RESCUE AFTER 15 MIN Senna (Senna -) 2 tab PO HS [facility] Last Admin: 01/02/19 22:10 Dose: 2 tab Sevelamer Carbonate (Renvela -) 800 mg PO TIDCM [facility] Last Admin: 01/03/19 09:44 Dose: 800 mg - Objective Vital Signs: Vital Signs Temperature 98.5 F 01/03/19 05:57 Pulse Rate 72 01/03/19 05:57 Respiratory Rate 20 01/03/19 05:57 Blood Pressure 162/74 01/03/19 05:57 O2 Sat by Pulse Oximetry (%) 96 01/02/19 21:00 Constitutional: Yes: No Distress, Calm Cardiovascular: Yes: S1, S2 Respiratory: Yes: Regular, CTA Bilaterally Gastrointestinal: Yes: Normal Bowel Sounds, Soft Musculoskeletal: Yes: WNL Extremities: Yes: Other Wound/Incision: Yes: Dressing Dry and Intact Neurological: Yes: Alert, Oriented Psychiatric: Yes: Other Labs: CBC, BMP 01/03/19 07:00 01/03/19 07:00 INR, PTT INR 1.15 (0.83-1.09) H 12/28/18 06:30 Assessment/Plan 78 yof with PMHx of ESRD on HD (T,Th,S), HTN, HLD, PVD (s/p left TMA/flap), admitted with Left heel infection concerning for abscess +/- osteomyelitis. -Left heel infection, suspicious for abscess, r/o osteomyelitis -PVD -s/p Left TMA/flap surgery -ESRD on HD -HTN -HLD plan continue current mgmt plan for bka
--- NOTE | 2019-01-03 11:17 | PN ---
Physical Exam: SUBJECTIVE: Patient seen and examined at bedside. Has no complaints. Is in agreement with surgical plan. OBJECTIVE: Vital Signs Temperature 98.8 F 01/03/19 09:25 Pulse Rate 68 01/03/19 09:25 Respiratory Rate 20 01/03/19 09:25 Blood Pressure 144/73 01/03/19 09:25 O2 Sat by Pulse Oximetry (%) 96 01/03/19 09:00 GENERAL: The patient is awake, alert, and fully oriented, in no acute distress. EYES: extraocular movements intact, sclera anicteric, conjunctiva clear. NECK: Trachea midline, full range of motion LUNGS: Breath sounds equal, clear to auscultation bilaterally HEART: Regular rate and rhythm, S1, S2 ABDOMEN: Soft, nontender, nondistended, normoactive bowel sounds EXTREMITIES: RLE with no edema, LLE wrapped. NEUROLOGICAL: Cranial nerves II through XII grossly intact. Normal speech. PSYCH: Normal mood, normal affect. SKIN: Warm, dry, as described above. Laboratory Results - last 24 hr 01/02/19 01/02/19 01/02/19 11:44 17:48 21:33 WBC RBC Hgb Hct MCV MCH MCHC RDW Plt Count MPV Sodium Potassium Chloride Carbon Dioxide Anion Gap BUN Creatinine Est GFR (CKD-EPI)AfAm Est GFR (CKD-EPI)NonAf POC Glucometer 111 88 96 Random Glucose Calcium Phosphorus Magnesium Albumin Blood Type Antibody Screen Crossmatch 01/03/19 01/03/19 01/03/19 06:06 07:00 07:00 WBC 11.6 H RBC 3.12 L Hgb 9.1 L Hct 28.4 L MCV 91.1 MCH 29.2 MCHC 32.1 RDW 17.3 H Plt Count 279 MPV 7.1 L Sodium 139 Potassium 3.5 Chloride 100 Carbon Dioxide 29 Anion Gap 10 BUN 15 Creatinine 3.3 H Est GFR (CKD-EPI)AfAm 14.65 Est GFR (CKD-EPI)NonAf 12.64 POC Glucometer 66 Random Glucose 67 L Calcium 8.9 Phosphorus 2.8 Magnesium 2.0 Albumin 2.2 L Blood Type Antibody Screen Crossmatch 01/03/19 09:45 WBC RBC Hgb Hct MCV MCH MCHC RDW Plt Count MPV Sodium Potassium Chloride Carbon Dioxide Anion Gap BUN Creatinine Est GFR (CKD-EPI)AfAm Est GFR (CKD-EPI)NonAf POC Glucometer Random Glucose Calcium Phosphorus Magnesium Albumin Blood Type AB POSITIVE Antibody Screen Negative Crossmatch See Detail Active Medications Generic Name Dose Route Start Last Admin Trade Name Megaq PRN Reason Stop Dose Admin Acetaminophen 650 mg 01/01/19 18:37 01/03/19 09:53 Tylenol - PO 650 mg Q4H PRN Administration FEVER Atorvastatin Calcium 10 mg 01/02/19 22:00 01/02/19 22:10 Lipitor - PO 10 mg HS NOE Administration Clopidogrel Bisulfate 75 mg 01/02/19 10:00 01/03/19 09:53 Plavix - PO 75 mg DAILY NOE Administration Collagenase 1 applic 01/02/19 10:00 01/03/19 09:47 Santyl - TP 1 applic DAILY NOE Administration Protocol Fentanyl 50 mcg 01/01/19 18:37 Sublimaze Injection - IVPUSH [id number] PRN PAIN-PACU ORDER X 4 DOSES ONLY Ferrous Sulfate 325 mg 01/02/19 10:00 01/03/19 09:45 Feosol - PO 325 mg DAILY NOE Administration Heparin Sodium (Porcine) 5,000 unit 01/01/19 22:00 01/03/19 06:03 Heparin - SQ 5,000 unit TID NOE Administration Piperacillin Sod/Tazobactam 50 mls @ 100 mls/hr 01/02/19 02:00 01/03/19 09:48 Sod 2.25 gm/ Dextrose IVPB 100 mls/hr Q8H-IV NOE Administration Protocol Insulin Aspart 1 vial 01/02/19 07:00 01/03/19 06:07 Novolog Vial Sliding Scale - SQ Not Given TIDAC [facility] Protocol Labetalol HCl 300 mg 01/01/19 22:00 01/03/19 06:03 Normodyne - PO 300 mg TID NOE Administration Losartan Potassium 50 mg 01/02/19 10:00 01/03/19 09:44 Cozaar - PO 50 mg DAILY NOE Administration Nifedipine 30 mg 01/02/19 22:00 01/03/19 09:45 Procardia Xl - PO 30 mg BID NOE Administration Ondansetron HCl 4 mg 01/01/19 18:37 Zofran Injection IVPUSH Q6H PRN NAUSEA AND/OR VOMITING Promethazine HCl 12.5 mg 01/01/19 18:37 Phenergan Injection - IVPB Q6H PRN NAUSEA-FOR RESCUE AFTER 15 MIN Senna 2 tab 01/01/19 22:00 01/02/19 22:10 Senna - PO 2 tab HS NOE Administration Sevelamer Carbonate 800 mg 01/02/19 08:00 01/03/19 09:44 Renvela - PO 800 mg TIDCM NOE Administration ASSESSMENT/PLAN: 78 y/o M w/PMH of ESRD (T,Th,S), HTN, HLD, PVD (s/p amputation of L toes) presents for wound evaluation on LLE. -LLE ulceration -r/o OM -c/w zosyn per ID. -vascular surgery following, podiatry following -daily dressing changes, betadine solution to L heel -air mattress, pressure offloading -per nephro - would be ideal to dialyze patient immediately following angiogram -angiogram 01/01/19 - minimal blood flow to LLE. -For BKA tomorrow. Will hold AM plavix, AM heparin -Pt is currently medically optimized for this surgical procedure. -ESRD -HD TTS -nephrology following -HD per nephro -c/w renvela, phoslo, iron -HTN -c/w labetalol -losartan 50mg po -now on nifidepine XL 30 mg bid -fluids stopped. monitor BP -HLD -c/w lipitor -PVD -c/w plavix, lipitor -Possible hx of DM -will monitor glucose here -DVT ppx -Heparin 5000 units q8h. Hold in AM for surgery. -FEN -No fluids -Monitor electrolytes -diabetic/sodium diet -Dispo: monitor on m/s Visit type - Emergency Visit Emergency Visit: Yes ED Registration Date: 12/27/18 Care time: The patient presented to the Emergency Department on the above date and was hospitalized for further evaluation of their emergent condition. - New Patient This patient is new to me today: No - Critical Care Critical Care patient: No
--- NOTE | 2019-01-03 11:32 | PN ---
Teaching Attending Note Name of Resident: Fernando Rodriguez ATTENDING PHYSICIAN STATEMENT I saw and evaluated the patient. I reviewed the resident's note and discussed the case with the resident. I agree with the resident's findings and plan as documented. SUBJECTIVE: Ms Crain is without complaint. Denies cp, sob, n/v. OBJECTIVE: Last Vital Signs Temp Pulse Resp BP Pulse Ox 37.1 C 68 20 144/73 96 01/03/19 09:25 01/03/19 09:25 01/03/19 09:25 01/03/19 09:25 01/03/19 09:00 Gen: nad Pulm: ctab w/o w/r/r CV: rrr w/o m/r/g Abd: +bs, s/nt/nd Ext: L foot wrapped CBC, BMP 01/03/19 07:00 01/03/19 07:00 ASSESSMENT AND PLAN: (1) Osteomyelitis Assessment/Plan: -vascular surgery following -very poor blood flow to the L foot -plan for BKA LLE tomorrow -continue zosyn -patient without chest pain or shortness of breath -EKG showing no changes -chest x-ray without pathology -patient medically optimized for surgical intervention -recommend taking antihypertensives prior to surgery to avoid hypertension Code(s): M86.9 - OSTEOMYELITIS, UNSPECIFIED (2) Foot ulcer Assessment/Plan: -as above Code(s): L97.509 - NON-PRESSURE CHRONIC ULCER OTH PRT UNSP FOOT W UNSP SEVERITY Qualifiers: Laterality: left Non-pressure ulcer stage: unspecified non-pressure ulcer stage Qualified Code(s): L97.529 - Non-pressure chronic ulcer of other part of left foot with unspecified severity (3) ESRD (end stage renal disease) on dialysis Assessment/Plan: -continue HD Code(s): N18.6 - END STAGE RENAL DISEASE; Z99.2 - DEPENDENCE ON RENAL DIALYSIS (4) Hypertension Assessment/Plan: -continue losartan, labetalol, and nifedipine Code(s): I10 - ESSENTIAL (PRIMARY) HYPERTENSION Qualifiers: Hypertension type: essential hypertension Qualified Code(s): I10 - Essential (primary) hypertension (5) Anemia Assessment/Plan: -at baseline Code(s): D64.9 - ANEMIA, UNSPECIFIED Qualifiers: Anemia type: due to chronic kidney disease Chronic kidney disease stage: on chronic dialysis Qualified Code(s): N18.6 - End stage renal disease; D63.1 - Anemia in chronic kidney disease; Z99.2 - Dependence on renal dialysis (6) Diabetes Assessment/Plan: -continue diabetic diet -continue SSI Code(s): E11.9 - TYPE 2 DIABETES MELLITUS WITHOUT COMPLICATIONS Qualifiers: Diabetes mellitus type: type 2 Diabetes mellitus manager long term care insulin use: without manager long term care use Diabetes mellitus complication status: with kidney complications Diabetes mellitus complication detail: with chronic kidney disease Chronic kidney disease stage: on chronic dialysis Qualified Code(s) : E11.22 - Type 2 diabetes mellitus with diabetic chronic kidney disease; N18.6 - End stage renal disease; Z99.2 - Dependence on renal dialysis (7) Hyperlipidemia Assessment/Plan: -continue statin Code(s): E78.5 - HYPERLIPIDEMIA, UNSPECIFIED Qualifiers: Hyperlipidemia type: pure hypercholesterolemia Qualified Code(s): E78.00 - Pure hypercholesterolemia, unspecified; E78.0 - Pure hypercholesterolemia (8) PAD (peripheral artery disease) Assessment/Plan: -hold plavix tonight Code(s): I73.9 - PERIPHERAL VASCULAR DISEASE, UNSPECIFIED (9) Hypokalemia Assessment/Plan: -nephrology following Code(s): E87.6 - HYPOKALEMIA Problem List - Problems (1) Osteomyelitis Code(s): M86.9 - OSTEOMYELITIS, UNSPECIFIED (2) Foot ulcer Code(s): L97.509 - NON-PRESSURE CHRONIC ULCER OTH PRT UNSP FOOT W UNSP SEVERITY Qualifiers: Laterality: left Non-pressure ulcer stage: unspecified non-pressure ulcer stage Qualified Code(s): L97.529 - Non-pressure chronic ulcer of other part of left foot with unspecified severity (3) ESRD (end stage renal disease) on dialysis Code(s): N18.6 - END STAGE RENAL DISEASE; Z99.2 - DEPENDENCE ON RENAL DIALYSIS (4) Hypertension Code(s): I10 - ESSENTIAL (PRIMARY) HYPERTENSION Qualifiers: Hypertension type: essential hypertension Qualified Code(s): I10 - Essential (primary) hypertension (5) Anemia Code(s): D64.9 - ANEMIA, UNSPECIFIED Qualifiers: Anemia type: due to chronic kidney disease Chronic kidney disease stage: on chronic dialysis Qualified Code(s): N18.6 - End stage renal disease; D63.1 - Anemia in chronic kidney disease; Z99.2 - Dependence on renal dialysis (6) Diabetes Code(s): E11.9 - TYPE 2 DIABETES MELLITUS WITHOUT COMPLICATIONS Qualifiers: Diabetes mellitus type: type 2 Diabetes mellitus manager long term care insulin use: without manager long term care use Diabetes mellitus complication status: with kidney complications Diabetes mellitus complication detail: with chronic kidney disease Chronic kidney disease stage: on chronic dialysis Qualified Code(s) : E11.22 - Type 2 diabetes mellitus with diabetic chronic kidney disease; N18.6 - End stage renal disease; Z99.2 - Dependence on renal dialysis (7) Hyperlipidemia Code(s): E78.5 - HYPERLIPIDEMIA, UNSPECIFIED Qualifiers: Hyperlipidemia type: pure hypercholesterolemia Qualified Code(s): E78.00 - Pure hypercholesterolemia, unspecified; E78.0 - Pure hypercholesterolemia (8) PAD (peripheral artery disease) Code(s): I73.9 - PERIPHERAL VASCULAR DISEASE, UNSPECIFIED (9) Hypokalemia Code(s): E87.6 - HYPOKALEMIA
[2019-01-03] MEDS ORDERED: SODIUM CHLORIDE 250 ML IV PRN ×2 (12:58→13:00)
[2019-01-03] MEDS ORDERED: EPOETIN ALFA 10,000 UNIT/1 ML VIAL IVPUSH ONE (13:30)
--- NOTE | 2019-01-03 13:37 | PN ---
Progress Note (short form) - Note Progress Note: Renal follow up for ESRD pt seen and examined at the bedside awake and alert no acute complaints no sob, cp, abd pain, fever, chills Vital Signs Temperature 98.8 F 01/03/19 09:25 Pulse Rate 68 01/03/19 09:25 Respiratory Rate 20 01/03/19 09:25 Blood Pressure 144/73 01/03/19 09:25 O2 Sat by Pulse Oximetry (%) 96 01/03/19 09:00 Intake & Output 12/31/18 01/01/19 01/02/19 01/03/19 23:59 23:59 23:59 23:59 Intake Total 945 018 2116 50 Output Total 0 Balance 903 013 8234 50 Weight 61.462 kg 61.689 kg 62.681 kg 62.199 kg NAD RRR, no M/R CTA, no rales or wheeze soft NT/ND trace LE edema, left foot in dressing CBC, BMP 01/03/19 07:00 01/03/19 07:00 Current Medications Acetaminophen (Tylenol -) 650 mg PO Q4H PRN PRN Reason: FEVER Last Admin: 01/03/19 09:53 Dose: 650 mg Atorvastatin Calcium (Lipitor -) 10 mg PO HS NOE Last Admin: 01/02/19 22:10 Dose: 10 mg Clopidogrel Bisulfate (Plavix -) 75 mg PO DAILY NOE Last Admin: 01/03/19 09:53 Dose: 75 mg Collagenase (Santyl -) 1 applic TP DAILY NOE; Protocol Last Admin: 01/03/19 09:47 Dose: 1 applic Fentanyl (Sublimaze Injection -) 50 mcg IVPUSH [id number] PRN PRN Reason: PAIN-PACU ORDER X 4 DOSES ONLY Ferrous Sulfate (Feosol -) 325 mg PO DAILY NOE Last Admin: 01/03/19 09:45 Dose: 325 mg Heparin Sodium (Porcine) (Heparin -) 5,000 unit SQ TID NOE Last Admin: 01/03/19 06:03 Dose: 5,000 unit Piperacillin Sod/Tazobactam (Sod 2.25 gm/ Dextrose) 50 mls @ 100 mls/hr IVPB Q8H-IV NOE; Protocol Last Admin: 01/03/19 09:48 Dose: 100 mls/hr Sodium Chloride (Normal Saline -) 250 mls @ 3,000 mls/hr IV PRN PRN PRN Reason: Hypotension during Dialysis Stop: 01/04/19 12:58 Sodium Chloride (Normal Saline -) 250 mls @ 3,000 mls/hr IV PRN PRN PRN Reason: Hypotension during Dialysis Stop: 01/04/19 13:00 Insulin Aspart (Novolog Vial Sliding Scale -) 1 vial SQ TIDAC [facility]; Protocol Last Admin: 01/03/19 12:11 Dose: Not Given Labetalol HCl (Normodyne -) 300 mg PO TID [facility] Last Admin: 01/03/19 06:03 Dose: 300 mg Losartan Potassium (Cozaar -) 50 mg PO DAILY [facility] Last Admin: 01/03/19 09:44 Dose: 50 mg Nifedipine (Procardia Xl -) 30 mg PO BID [facility] Last Admin: 01/03/19 09:45 Dose: 30 mg Ondansetron HCl (Zofran Injection) 4 mg IVPUSH Q6H PRN PRN Reason: NAUSEA AND/OR VOMITING Promethazine HCl (Phenergan Injection -) 12.5 mg IVPB Q6H PRN PRN Reason: NAUSEA-FOR RESCUE AFTER 15 MIN Senna (Senna -) 2 tab PO HS [facility] Last Admin: 01/02/19 22:10 Dose: 2 tab Sevelamer Carbonate (Renvela -) 800 mg PO TIDCM [facility] Last Admin: 01/03/19 12:11 Dose: 800 mg 78 year old woman with hx of ESRD on HD (TTS, PVD s/p TMA 2018, HTN, DM, hyperlipidemia who presented with left heel wound. Pt reports wound has been itching and had become foul smelling. #LE wound #ESRD on HD #DM #PVD #Hypertension for dialysis today with UF as tolerated planned for BKA tomorrow continue SHARA for Anemia continue phos binder for hyperphosphatemia continue Losartan and Labetalol abx as per ELLI Smith DO
[2019-01-03 14:07] LABS: HEMATOCRIT 29.6 % (32.4-45.2); HEMOGLOBIN 9.1 GM/dL (10.7-15.3); MCH 27.9 pg (25.7-33.7); MCHC 30.8 g/dl (32.0-36.0); MEAN CELL VOLUME 90.7 fl (80-96); MEAN PLT VOLUME 7.1 fl (7.5-11.1); PLATELET COUNT 276 K/MM3 (134-434); RBC 3.27 M/mm3 (3.60-5.2); RDW 17.1 % (11.6-15.6); WHITE BLOOD COUNT 11.1 K/mm3 (4.0-10.0)
[2019-01-03 14:30] LABS: CALCIUM 9.1 mg/dL (8.5-10.1); CREATININE 3.7 mg/dL (0.55-1.3); POTASSIUM 3.7 mmol/L (3.5-5.1)
--- NOTE | 2019-01-03 14:31 | SPA.PREOP ---
- PRE-OP NOTE Dx: Severe vascular disease L foot with no options for revascularization, nonhealing L foot wounds Planned Procedure: Left below knee amputation with Dr Rodriguez 01/04 Surgeon: Dr Boris Rodriguez Last Vital Signs Temp Pulse Resp BP Pulse Ox 98.8 F 68 20 144/73 96 01/03/19 09:25 01/03/19 09:25 01/03/19 09:25 01/03/19 09:25 01/03/19 09:00 Lab Results WBC 11.1 K/mm3 (4.0-10.0) H 01/03/19 13:40 RBC 3.27 M/mm3 (3.60-5.2) L 01/03/19 13:40 Hgb 9.1 GM/dL (10.7-15.3) L 01/03/19 13:40 Hct 29.6 % (32.4-45.2) L 01/03/19 13:40 MCV 90.7 fl (80-96) 01/03/19 13:40 MCHC 30.8 g/dl (32.0-36.0) L 01/03/19 13:40 RDW 17.1 % (11.6-15.6) H 01/03/19 13:40 Plt Count 276 K/MM3 (134-434) 01/03/19 13:40 Sodium 137 mmol/L (136-145) 01/03/19 13:40 Potassium 3.7 mmol/L (3.5-5.1) 01/03/19 13:40 Chloride 98 mmol/L (98-107) 01/03/19 13:40 Carbon Dioxide 28 mmol/L (21-32) 01/03/19 13:40 Anion Gap 10 MMOL/L (8-16) 01/03/19 13:40 BUN 17 mg/dL (7-18) 01/03/19 13:40 Creatinine 3.7 mg/dL (0.55-1.3) H 01/03/19 13:40 Random Glucose 88 mg/dL (74-106) 01/03/19 13:40 Calcium 9.1 mg/dL (8.5-10.1) 01/03/19 13:40 Blood Type AB POSITIVE 01/03/19 09:45 Antibody Screen Negative 01/03/19 09:45 INR 1.15 (0.83-1.09) H 12/28/18 06:30 - IMAGING Chest X-ray: Report Reviewed (In chart 01/02) X-ray: Report Reviewed (In chart 12/27) Cat Scan: Report Reviewed (CTA 12/28 (aorta w/ runoff)) MRI: Report Reviewed (In chart 12/27) EKG: Report Reviewed (In chart 12/27) - ASSESSMENT/PLAN 1. Make NPO after midnight except po meds 2. GI/DVT PPX 3. Medical optimization / clearance 4. Consent to be obtained by surgeon after risks, benefits and alternatives discussed with patient and or Health Care Proxy. 5. T&S active, 2 units prbc on hold with BB 6. AM labs (cbc, chem, coags) 7. Hold Heparin SQ and Plavix
[2019-01-03 14:50] VITALS: BMI 23.5
[2019-01-03] MEDS: ATORVASTATIN CA 10 MG TABLET (FP) PO SCH (21:10)
[2019-01-03] MEDS: SENNOSIDES 8.6MG TABLET (FP) PO SCH (21:10)
[2019-01-04] MEDS ORDERED: PIPERACILLIN/TAZOBACTAM 2.25 GM VIAL IVPB ONE ×3 (03:08→23:52)
[2019-01-04] MEDS ORDERED: DEXTROSE 5%-WATER - 50 ML IVPB ONE ×3 (03:09→23:53)
[2019-01-04] MEDS: PIPERACILLIN/TAZOB 2.25 GM 2.25 GM in DEXTROSE 5%-WATER - 50 ML IVPB SCH ×4 (03:14→19:12)
[2019-01-04] MEDS: LABETALOL HCL 100 MG TABLET (FP) PO SCH ×3 (06:18→21:16)
[2019-01-04] MEDS ORDERED: DEXTROSE 50%-WATER 25 GM/50 ML DISP.SYRIN IVPUSH ONE (06:32)
[2019-01-04] MEDS ORDERED: DEXTROSE 50%-WATER 25 GM/50 ML DISP.SYRIN ONE ×2 (06:51→14:15)
[2019-01-04] MEDS: INSULIN SLIDING SCALE (NOVOLOG) 1 VIAL SQ SCH ×3 (07:35→18:51)
[2019-01-04 07:41] LABS: BASO % 0.4 % (0-2.0); EOS % 1.1 % (0-4.5); HEMATOCRIT 30.3 % (32.4-45.2); HEMOGLOBIN 9.8 GM/dL (10.7-15.3); LYMPH % 10.7 % (8-40); MCH 29.2 pg (25.7-33.7); MCHC 32.4 g/dl (32.0-36.0); MEAN CELL VOLUME 90.3 fl (80-96); MEAN PLT VOLUME 7.3 fl (7.5-11.1); MONO % 7.6 % (3.8-10.2); NEUT % 80.2 % (42.8-82.8); PLATELET COUNT 290 K/MM3 (134-434); RBC 3.35 M/mm3 (3.60-5.2); RDW 16.9 % (11.6-15.6); WHITE BLOOD COUNT 12.1 K/mm3 (4.0-10.0)
[2019-01-04 07:44] LABS: INR 1.25 (0.83-1.09); PROTHROMBIN TIME (PATIENT) 14.8 SEC (9.7-13.0)
[2019-01-04 07:44] LABS: ALBUMIN 2.2 g/dl (3.4-5.0); BILIRUBIN,TOTAL 0.8 mg/dL (0.2-1); CALCIUM 9.2 mg/dL (8.5-10.1); CREATININE 2.1 mg/dL (0.55-1.3); POTASSIUM 3.5 mmol/L (3.5-5.1); TOT PROT 6.9 g/dl (6.4-8.2)
[2019-01-04 07:47] LABS: ACTIVATED PTT 38.4 SECONDS (25.2-36.5)
[2019-01-04] MEDS: SEVELAMER CARBONATE 800 MG TAB (FP) PO SCH ×3 (09:13→18:51)
[2019-01-04] MEDS: COLLAGENASE CLOSTRIDIUM HIST. 30 GRAMS TUBE TP SCH (09:14)
[2019-01-04] MEDS: NIFEdipine E.R. 30 MG TABLET (FP) PO SCH ×2 (09:14→21:16)
[2019-01-04] MEDS: LOSARTAN POTASSIUM 50 MG TABLET (FP) PO SCH (09:14)
[2019-01-04] MEDS: FERROUS SO4 325 MG TABLET (FP) PO SCH (09:14)
[2019-01-04] MEDS: ACETAMINOPHEN 325 MG TABLET (FP) PO PRN (10:15)
--- NOTE | 2019-01-04 11:35 | PN ---
Progress Note, Physician - Current Medication List Current Medications: Active Medications Acetaminophen (Tylenol -) 650 mg PO Q4H PRN PRN Reason: FEVER Last Admin: 01/04/19 10:15 Dose: 650 mg Atorvastatin Calcium (Lipitor -) 10 mg PO HS [facility] Last Admin: 01/03/19 21:10 Dose: 10 mg Clopidogrel Bisulfate (Plavix -) 75 mg PO DAILY [facility] Last Admin: 01/03/19 09:53 Dose: 75 mg Collagenase (Santyl -) 1 applic TP DAILY [facility]; Protocol Last Admin: 01/04/19 09:14 Dose: Not Given Fentanyl (Sublimaze Injection -) 50 mcg IVPUSH [id number] PRN PRN Reason: PAIN-PACU ORDER X 4 DOSES ONLY Ferrous Sulfate (Feosol -) 325 mg PO DAILY [facility] Last Admin: 01/04/19 09:14 Dose: 325 mg Heparin Sodium (Porcine) (Heparin -) 5,000 unit SQ TID [facility] Last Admin: 01/03/19 21:10 Dose: 5,000 unit Piperacillin Sod/Tazobactam (Sod 2.25 gm/ Dextrose) 50 mls @ 100 mls/hr IVPB Q8H-IV [facility]; Protocol Last Admin: 01/04/19 09:14 Dose: 100 mls/hr Sodium Chloride (Normal Saline -) 250 mls @ 3,000 mls/hr IV PRN PRN PRN Reason: Hypotension during Dialysis Stop: 01/04/19 12:58 Sodium Chloride (Normal Saline -) 250 mls @ 3,000 mls/hr IV PRN PRN PRN Reason: Hypotension during Dialysis Stop: 01/04/19 13:00 Insulin Aspart (Novolog Vial Sliding Scale -) 1 vial SQ TIDAC [facility]; Protocol Last Admin: 01/04/19 11:17 Dose: Not Given Labetalol HCl (Normodyne -) 300 mg PO TID [facility] Last Admin: 01/04/19 06:18 Dose: 300 mg Losartan Potassium (Cozaar -) 50 mg PO DAILY [facility] Last Admin: 01/04/19 09:14 Dose: 50 mg Nifedipine (Procardia Xl -) 30 mg PO BID [facility] Last Admin: 01/04/19 09:14 Dose: 30 mg Ondansetron HCl (Zofran Injection) 4 mg IVPUSH Q6H PRN PRN Reason: NAUSEA AND/OR VOMITING Promethazine HCl (Phenergan Injection -) 12.5 mg IVPB Q6H PRN PRN Reason: NAUSEA-FOR RESCUE AFTER 15 MIN Senna (Senna -) 2 tab PO HS [facility] Last Admin: 01/03/19 21:10 Dose: 2 tab Sevelamer Carbonate (Renvela -) 800 mg PO TIDCM [facility] Last Admin: 01/04/19 09:13 Dose: Not Given - Objective Vital Signs: Vital Signs Temperature 99.2 F 01/04/19 09:13 Pulse Rate 72 01/04/19 09:13 Respiratory Rate 16 01/04/19 09:13 Blood Pressure 138/72 01/04/19 09:13 O2 Sat by Pulse Oximetry (%) 96 01/03/19 21:00 Labs: CBC, BMP 01/04/19 06:27 01/04/19 06:20 INR, PTT INR 1.25 (0.83-1.09) H 01/04/19 06:27
--- NOTE | 2019-01-04 11:43 | PN ---
Progress Note (short form) - Note Progress Note: FUV right heel and forefoot. Patient resting comfortably. Scheduled for BKA today. vss, +e.coli, +staph aureus, +dry eschar left heel, +granulating forefoot wound, - mal odor Infected left foot PVD BKA today. Monitor right lower extremity for break down. Continue heel pad left. Will follow till dc.
[2019-01-04] MEDS ORDERED: DEXTROSE 50%-WATER - 25 GM/50 ML VIAL IVPUSH ONE (14:15)
[2019-01-04] MEDS ORDERED: DEXTROSE 5%-WATER - 1,000 ML IV SCH ×2 (14:30→18:00)
[2019-01-04] MEDS ORDERED: SODIUM CHLORIDE 250 ML IV PRN ×2 (14:47→18:00)
--- NOTE | 2019-01-04 14:47 | PN ---
Progress Note (short form) - Note Progress Note: Renal follow up for ESRD pt seen and examined at the bedside Blood gloucose is 59, no acute complaints NPO for OR today no sob, cp, abd pain Vital Signs Temperature 99.2 F 01/04/19 09:13 Pulse Rate 72 01/04/19 09:13 Respiratory Rate 16 01/04/19 09:13 Blood Pressure 138/72 01/04/19 09:13 O2 Sat by Pulse Oximetry (%) 96 01/03/19 21:00 Intake & Output 01/01/19 01/02/19 01/03/19 01/04/19 23:59 23:59 23:59 23:59 Intake Total 300 1048 500 50 Output Total 0 Balance 300 1048 500 50 Weight 61.689 kg 62.681 kg 62.142 kg 62.256 kg NAD RRR, no M/R CTA, no rales or wheeze soft NT/ND trace LE edema, left foot in dressing CBC, BMP 01/04/19 06:27 01/04/19 06:20 Current Medications Acetaminophen (Tylenol -) 650 mg PO Q4H PRN PRN Reason: FEVER Last Admin: 01/04/19 10:15 Dose: 650 mg Atorvastatin Calcium (Lipitor -) 10 mg PO HS [facility] Last Admin: 01/03/19 21:10 Dose: 10 mg Clopidogrel Bisulfate (Plavix -) 75 mg PO DAILY [facility] Last Admin: 01/03/19 09:53 Dose: 75 mg Collagenase (Santyl -) 1 applic TP DAILY [facility]; Protocol Last Admin: 01/04/19 09:14 Dose: Not Given Fentanyl (Sublimaze Injection -) 50 mcg IVPUSH [id number] PRN PRN Reason: PAIN-PACU ORDER X 4 DOSES ONLY Ferrous Sulfate (Feosol -) 325 mg PO DAILY [facility] Last Admin: 01/04/19 09:14 Dose: 325 mg Heparin Sodium (Porcine) (Heparin -) 5,000 unit SQ TID [facility] Last Admin: 01/03/19 21:10 Dose: 5,000 unit Piperacillin Sod/Tazobactam (Sod 2.25 gm/ Dextrose) 50 mls @ 100 mls/hr IVPB Q8H-IV [facility]; Protocol Last Admin: 01/04/19 09:14 Dose: 100 mls/hr Dextrose (D5w -) 1,000 mls @ 42 mls/hr IV [facility] Insulin Aspart (Novolog Vial Sliding Scale -) 1 vial SQ TIDAC [facility]; Protocol Last Admin: 01/04/19 11:17 Dose: Not Given Labetalol HCl (Normodyne -) 300 mg PO TID [facility] Last Admin: 01/04/19 14:01 Dose: Not Given Losartan Potassium (Cozaar -) 50 mg PO DAILY [facility] Last Admin: 01/04/19 09:14 Dose: 50 mg Nifedipine (Procardia Xl -) 30 mg PO BID [facility] Last Admin: 01/04/19 09:14 Dose: 30 mg Ondansetron HCl (Zofran Injection) 4 mg IVPUSH Q6H PRN PRN Reason: NAUSEA AND/OR VOMITING Promethazine HCl (Phenergan Injection -) 12.5 mg IVPB Q6H PRN PRN Reason: NAUSEA-FOR RESCUE AFTER 15 MIN Senna (Senna -) 2 tab PO HS [facility] Last Admin: 01/03/19 21:10 Dose: 2 tab Sevelamer Carbonate (Renvela -) 800 mg PO TIDCM [facility] Last Admin: 01/04/19 12:14 Dose: Not Given 78 year old woman with hx of ESRD on HD (TTS, PVD s/p TMA 2018, HTN, DM, hyperlipidemia who presented with left heel wound. Pt reports wound has been itching and had become foul smelling. #LE wound #ESRD on HD #DM #PVD #Hypertension tolerated HD well yesterday for next dialysis on Monday OR today for BKA pain control as needed will continue SHARA with HD for anemia Abx as per ELLI Smith DO
[2019-01-04] MEDS ORDERED: SUCCINYLCHOLINE CHLORIDE 200 MG/10 ML VIAL ONE (14:53)
[2019-01-04] MEDS ORDERED: PROPOFOL 20 ML ONE (14:53)
[2019-01-04] MEDS ORDERED: ROCURONIUM BROMIDE 50 MG/5 ML VIAL ONE (14:57)
[2019-01-04] MEDS ORDERED: SODIUM CHLORIDE 0.9% P/F 10 ML VIAL IJ ONE (14:57)
[2019-01-04] MEDS ORDERED: DEXAMETHASONE SOD PHOSPHATE 4 MG/1 ML VIAL ONE (14:57)
[2019-01-04] MEDS ORDERED: ceFAZolin SODIUM 1 GM VIAL ONE (14:57)
[2019-01-04] MEDS ORDERED: LIDOCAINE HCL/PF 2% SDV 5ML VIAL ONE (14:57)
[2019-01-04] MEDS ORDERED: PHENYLEPHRINE HCL 10 MG/1 ML SINGLE DOSE VIAL ONE (15:00)
[2019-01-04] MEDS ORDERED: ceFAZolin SODIUM 1 GM VIAL IVPB ONE (15:24)
--- NOTE | 2019-01-04 16:41 | PN ---
Physical Exam: SUBJECTIVE: Patient seen and examined at bedside. Offers no complaints. For BKA today. OBJECTIVE: Vital Signs Temperature 99.2 F 01/04/19 09:13 Pulse Rate 72 01/04/19 09:13 Respiratory Rate 16 01/04/19 09:13 Blood Pressure 138/72 01/04/19 09:13 O2 Sat by Pulse Oximetry (%) 98 01/04/19 09:00 GENERAL: The patient is awake, alert, and fully oriented, in no acute distress. EYES: extraocular movements intact, sclera anicteric, conjunctiva clear. NECK: Trachea midline, full range of motion LUNGS: Breath sounds equal, clear to auscultation bilaterally HEART: Regular rate and rhythm, S1, S2 ABDOMEN: Soft, nontender, nondistended, normoactive bowel sounds EXTREMITIES: RLE with no edema, LLE wrapped. NEUROLOGICAL: Cranial nerves II through XII grossly intact. Normal speech. PSYCH: Normal mood, normal affect. SKIN: Warm, dry, as described above. Laboratory Results - last 24 hr 01/03/19 01/04/19 01/04/19 21:32 06:20 06:24 WBC RBC Hgb Hct MCV MCH MCHC RDW Plt Count MPV Absolute Neuts (auto) Neutrophils % Lymphocytes % Monocytes % Eosinophils % Basophils % Nucleated RBC % PT with INR INR PTT (Actin FS) Sodium 139 Potassium 3.5 Chloride 100 Carbon Dioxide 32 Anion Gap 8 BUN 7 Creatinine 2.1 H Est GFR (CKD-EPI)AfAm 25.30 Est GFR (CKD-EPI)NonAf 21.83 POC Glucometer 79 59 Random Glucose 61 L Calcium 9.2 Total Bilirubin 0.8 AST 15 ALT 7 L Alkaline Phosphatase 89 Total Protein 6.9 Albumin 2.2 L 01/04/19 01/04/19 01/04/19 06:27 06:27 11:03 WBC 12.1 H RBC 3.35 L Hgb 9.8 L Hct 30.3 L MCV 90.3 MCH 29.2 MCHC 32.4 RDW 16.9 H Plt Count 290 MPV 7.3 L Absolute Neuts (auto) 9.7 H Neutrophils % 80.2 Lymphocytes % 10.7 D Monocytes % 7.6 Eosinophils % 1.1 Basophils % 0.4 Nucleated RBC % 0 PT with INR 14.80 H INR 1.25 H PTT (Actin FS) 38.4 H Sodium Potassium Chloride Carbon Dioxide Anion Gap BUN Creatinine Est GFR (CKD-EPI)AfAm Est GFR (CKD-EPI)NonAf POC Glucometer 71 Random Glucose Calcium Total Bilirubin AST ALT Alkaline Phosphatase Total Protein Albumin 01/04/19 14:09 WBC RBC Hgb Hct MCV MCH MCHC RDW Plt Count MPV Absolute Neuts (auto) Neutrophils % Lymphocytes % Monocytes % Eosinophils % Basophils % Nucleated RBC % PT with INR INR PTT (Actin FS) Sodium Potassium Chloride Carbon Dioxide Anion Gap BUN Creatinine Est GFR (CKD-EPI)AfAm Est GFR (CKD-EPI)NonAf POC Glucometer 56 Random Glucose Calcium Total Bilirubin AST ALT Alkaline Phosphatase Total Protein Albumin Active Medications Generic Name Dose Route Start Last Admin Trade Name Freq PRN Reason Stop Dose Admin Acetaminophen 650 mg 01/01/19 18:37 01/04/19 10:15 Tylenol - PO 650 mg Q4H PRN Administration FEVER Atorvastatin Calcium 10 mg 01/02/19 22:00 01/03/19 21:10 Lipitor - PO 10 mg HS NOE Administration Clopidogrel Bisulfate 75 mg 01/02/19 10:00 01/03/19 09:53 Plavix - PO 75 mg DAILY NOE Administration Collagenase 1 applic 01/02/19 10:00 01/04/19 09:14 Santyl - TP Not Given DAILY NOE Protocol Epoetin Kin 10,000 unit 01/05/19 06:00 Epogen - IVPUSH 01/05/19 06:01 ONCE ONE Fentanyl 50 mcg 01/01/19 18:37 Sublimaze Injection - IVPUSH [id number] PRN PAIN-PACU ORDER X 4 DOSES ONLY Ferrous Sulfate 325 mg 01/02/19 10:00 01/04/19 09:14 Feosol - PO 325 mg DAILY NOE Administration Heparin Sodium (Porcine) 5,000 unit 01/01/19 22:00 01/03/19 21:10 Heparin - SQ 5,000 unit TID NOE Administration Piperacillin Sod/Tazobactam 50 mls @ 100 mls/hr 01/02/19 02:00 01/04/19 09:14 Sod 2.25 gm/ Dextrose IVPB 100 mls/hr Q8H-IV NOE Administration Protocol Dextrose 1,000 mls @ 42 mls/hr 01/04/19 14:30 D5w - IV ASDIR NOE Sodium Chloride 250 mls @ 3,000 mls/hr 01/04/19 14:47 Normal Saline - IV 01/05/19 14:47 PRN PRN Hypotension during Dialysis Insulin Aspart 1 vial 01/02/19 07:00 01/04/19 11:17 Novolog Vial Sliding Scale - SQ Not Given TIDAC [facility] Protocol Labetalol HCl 300 mg 01/01/19 22:00 01/04/19 14:01 Normodyne - PO Not Given TID NOE Losartan Potassium 50 mg 01/02/19 10:00 01/04/19 09:14 Cozaar - PO 50 mg DAILY NOE Administration Nifedipine 30 mg 01/02/19 22:00 01/04/19 09:14 Procardia Xl - PO 30 mg BID NOE Administration Ondansetron HCl 4 mg 01/01/19 18:37 Zofran Injection IVPUSH Q6H PRN NAUSEA AND/OR VOMITING Promethazine HCl 12.5 mg 01/01/19 18:37 Phenergan Injection - IVPB Q6H PRN NAUSEA-FOR RESCUE AFTER 15 MIN Senna 2 tab 01/01/19 22:00 01/03/19 21:10 Senna - PO 2 tab HS NOE Administration Sevelamer Carbonate 800 mg 01/02/19 08:00 01/04/19 12:14 Renvela - PO Not Given TIDCM [facility] ASSESSMENT/PLAN: 78 y/o M w/PMH of ESRD (T,Th,S), HTN, HLD, PVD (s/p amputation of L toes) presents for wound evaluation on LLE. -LLE ulceration -r/o OM -c/w zosyn per ID. -for BKA today -Pt is currently medically optimized for this surgical procedure. -ESRD -HD TTS -nephrology following -HD per nephro -c/w renvela, phoslo, iron -HTN -c/w labetalol -losartan 50mg po -now on nifidepine XL 30 mg bid -fluids stopped. monitor BP -HLD -c/w lipitor -PVD -c/w plavix, lipitor -Possible hx of DM -will monitor glucose here -DVT ppx -Heparin 5000 units q8h. Hold in AM for surgery. -FEN -No fluids -Monitor electrolytes -diabetic/sodium diet -Dispo: monitor on m/s Visit type - Emergency Visit Emergency Visit: Yes ED Registration Date: 12/27/18 Care time: The patient presented to the Emergency Department on the above date and was hospitalized for further evaluation of their emergent condition. - New Patient This patient is new to me today: No - Critical Care Critical Care patient: No
--- NOTE | 2019-01-04 17:18 | OP ---
Operative Note - Note: Operative Date: 01/04/19 Pre-Operative Diagnosis: Left foot gangrene Operation: left below knee amputation Post-Operative Diagnosis: Same as Pre-op Surgeon: Boris Rodriguez Anesthesia: General Estimated Blood Loss (mls): 150 Operative Report Dictated: Yes
--- NOTE | 2019-01-04 17:21 | PN ---
Teaching Attending Note Name of Resident: Fernando Rodriguez ATTENDING PHYSICIAN STATEMENT I saw and evaluated the patient. I reviewed the resident's note and discussed the case with the resident. I agree with the resident's findings and plan as documented. SUBJECTIVE: Ms Crain is without complaint. No cp, sob, n/v. OBJECTIVE: Last Vital Signs Temp Pulse Resp BP Pulse Ox 37.3 C 72 16 138/72 98 01/04/19 09:13 01/04/19 09:13 01/04/19 09:13 01/04/19 09:13 01/04/19 09:00 Gen: nad Pulm: ctab w/o w/r/r CV: rrr w/o m/r/g Abd: +bs, s/nt/nd Ext: L foot wrapped CBC, BMP 01/04/19 06:27 01/04/19 06:20 ASSESSMENT AND PLAN: (1) Osteomyelitis Assessment/Plan: -plan for BKA today -continue zosyn per ID Code(s): M86.9 - OSTEOMYELITIS, UNSPECIFIED (2) Foot ulcer Assessment/Plan: -as above Code(s): L97.509 - NON-PRESSURE CHRONIC ULCER OTH PRT UNSP FOOT W UNSP SEVERITY Qualifiers: Laterality: left Non-pressure ulcer stage: unspecified non-pressure ulcer stage Qualified Code(s): L97.529 - Non-pressure chronic ulcer of other part of left foot with unspecified severity (3) ESRD (end stage renal disease) on dialysis Assessment/Plan: -continue HD Code(s): N18.6 - END STAGE RENAL DISEASE; Z99.2 - DEPENDENCE ON RENAL DIALYSIS (4) Hypertension Assessment/Plan: -continue losartan, labetalol, and nifedipine Code(s): I10 - ESSENTIAL (PRIMARY) HYPERTENSION Qualifiers: Hypertension type: essential hypertension Qualified Code(s): I10 - Essential (primary) hypertension (5) Anemia Assessment/Plan: -at baseline Code(s): D64.9 - ANEMIA, UNSPECIFIED Qualifiers: Anemia type: due to chronic kidney disease Chronic kidney disease stage: on chronic dialysis Qualified Code(s): N18.6 - End stage renal disease; D63.1 - Anemia in chronic kidney disease; Z99.2 - Dependence on renal dialysis (6) Diabetes Assessment/Plan: -continue diabetic diet -continue SSI Code(s): E11.9 - TYPE 2 DIABETES MELLITUS WITHOUT COMPLICATIONS Qualifiers: Diabetes mellitus type: type 2 Diabetes mellitus detention insulin use: without terminologist use Diabetes mellitus complication status: with kidney complications Diabetes mellitus complication detail: with chronic kidney disease Chronic kidney disease stage: on chronic dialysis Qualified Code(s) : E11.22 - Type 2 diabetes mellitus with diabetic chronic kidney disease; N18.6 - End stage renal disease; Z99.2 - Dependence on renal dialysis (7) Hyperlipidemia Assessment/Plan: -continue statin Code(s): E78.5 - HYPERLIPIDEMIA, UNSPECIFIED Qualifiers: Hyperlipidemia type: pure hypercholesterolemia Qualified Code(s): E78.00 - Pure hypercholesterolemia, unspecified; E78.0 - Pure hypercholesterolemia (8) PAD (peripheral artery disease) Assessment/Plan: -holding plavix -restart when safe from vascular surgery standpoint Code(s): I73.9 - PERIPHERAL VASCULAR DISEASE, UNSPECIFIED (9) Hypokalemia Assessment/Plan: -nephrology following Code(s): E87.6 - HYPOKALEMIA Problem List - Problems (1) Osteomyelitis Code(s): M86.9 - OSTEOMYELITIS, UNSPECIFIED (2) Foot ulcer Code(s): L97.509 - NON-PRESSURE CHRONIC ULCER OTH PRT UNSP FOOT W UNSP SEVERITY Qualifiers: Laterality: left Non-pressure ulcer stage: unspecified non-pressure ulcer stage Qualified Code(s): L97.529 - Non-pressure chronic ulcer of other part of left foot with unspecified severity (3) ESRD (end stage renal disease) on dialysis Code(s): N18.6 - END STAGE RENAL DISEASE; Z99.2 - DEPENDENCE ON RENAL DIALYSIS (4) Hypertension Code(s): I10 - ESSENTIAL (PRIMARY) HYPERTENSION Qualifiers: Hypertension type: essential hypertension Qualified Code(s): I10 - Essential (primary) hypertension (5) Anemia Code(s): D64.9 - ANEMIA, UNSPECIFIED Qualifiers: Anemia type: due to chronic kidney disease Chronic kidney disease stage: on chronic dialysis Qualified Code(s): N18.6 - End stage renal disease; D63.1 - Anemia in chronic kidney disease; Z99.2 - Dependence on renal dialysis (6) Diabetes Code(s): E11.9 - TYPE 2 DIABETES MELLITUS WITHOUT COMPLICATIONS Qualifiers: Diabetes mellitus type: type 2 Diabetes mellitus terminologist insulin use: without detention use Diabetes mellitus complication status: with kidney complications Diabetes mellitus complication detail: with chronic kidney disease Chronic kidney disease stage: on chronic dialysis Qualified Code(s) : E11.22 - Type 2 diabetes mellitus with diabetic chronic kidney disease; N18.6 - End stage renal disease; Z99.2 - Dependence on renal dialysis (7) Hyperlipidemia Code(s): E78.5 - HYPERLIPIDEMIA, UNSPECIFIED Qualifiers: Hyperlipidemia type: pure hypercholesterolemia Qualified Code(s): E78.00 - Pure hypercholesterolemia, unspecified; E78.0 - Pure hypercholesterolemia (8) PAD (peripheral artery disease) Code(s): I73.9 - PERIPHERAL VASCULAR DISEASE, UNSPECIFIED (9) Hypokalemia Code(s): E87.6 - HYPOKALEMIA
[2019-01-04] MEDS ORDERED: ONDANSETRON 4 MG/2 ML VIAL IVPUSH PRN (18:00)
[2019-01-04] MEDS ORDERED: PROMETHAZINE HCL 25 MG/1 ML VIAL IVPB PRN (18:00)
--- NOTE | 2019-01-04 18:23 | SURG ---
Surgery Resident Medical Officer Note Resident Medical Officer: Alcira Bradley PA-C (Suzy) Date of Service: 01/04/19 Diagnosis: Left foot gangrene Procedure: left below knee amputation I was present for the entirety of the operative procedure. For further detail, please refer to operative report. Visit type - Case Type Case Type: Scheduled - Emergency Emergency Visit: No - New patient This patient is new to me today: Yes Date on this admission: 01/04/19 - Critical Care Critical Care patient: No
[2019-01-04] MEDS: ATORVASTATIN CA 10 MG TABLET (FP) PO SCH (21:15)
[2019-01-04] MEDS: SENNOSIDES 8.6MG TABLET (FP) PO SCH (21:15)
[2019-01-04] MEDS: HEPARIN NA (PORCINE) 5,000 UNITS/ML 1ML VIAL SQ SCH (21:25)
[2019-01-04] MEDS: morphine SULFATE 4 MG/ML VIAL IVPUSH PRN (21:27)
[2019-01-05] MEDS: ACETAMINOPHEN 325 MG TABLET (FP) PO PRN (02:09)
[2019-01-05] MEDS: PIPERACILLIN/TAZOB 2.25 GM 2.25 GM in DEXTROSE 5%-WATER - 50 ML IVPB SCH ×3 (02:24→17:50)
[2019-01-05] MEDS: morphine SULFATE 4 MG/ML VIAL IVPUSH PRN ×2 (05:27→16:29)
[2019-01-05] MEDS: HEPARIN NA (PORCINE) 5,000 UNITS/ML 1ML VIAL SQ SCH ×3 (05:32→21:17)
[2019-01-05] MEDS ORDERED: EPOETIN ALFA 2,000 UNIT/1 ML VIAL IVPUSH ONE (06:00)
[2019-01-05] MEDS ORDERED: EPOETIN ALFA 10,000 UNIT/1 ML VIAL IVPUSH ONE ×2 (06:00→11:30)
[2019-01-05] MEDS: LABETALOL HCL 100 MG TABLET (FP) PO SCH ×3 (06:07→21:17)
[2019-01-05] MEDS: INSULIN SLIDING SCALE (NOVOLOG) 1 VIAL SQ SCH ×3 (06:08→17:54)
[2019-01-05] MEDS: SEVELAMER CARBONATE 800 MG TAB (FP) PO SCH ×3 (08:58→17:50)
[2019-01-05] MEDS ORDERED: DEXTROSE 5%-WATER - 50 ML IVPB ONE ×2 (09:12→17:49)
[2019-01-05] MEDS ORDERED: PIPERACILLIN/TAZOBACTAM 2.25 GM VIAL IVPB ONE ×2 (09:12→17:48)
--- NOTE | 2019-01-05 09:18 | PN ---
Progress Note (short form) - Note Progress Note: RENAL Coverage for Dr Smith Pt seen and examined she denies complaints stated she needed help to eat but that was it Last Vital Signs Temp Pulse Resp BP Pulse Ox 98.6 F 66 20 144/71 99 01/05/19 06:00 01/05/19 06:00 01/05/19 06:00 01/05/19 06:00 01/04/19 21:00 lungs clear cvs s1s2 rr abd soft ext no edema on RLE, had amputaion on left, bruit over avf neuro a+ox3 CBC, BMP 01/04/19 06:27 01/04/19 06:20 Current Medications Generic Name Dose Route Start Last Admin Trade Name Freq PRN Reason Stop Dose Admin Acetaminophen 650 mg 01/04/19 18:00 01/05/19 02:09 Tylenol - PO 650 mg Q4H PRN Administration FEVER Atorvastatin Calcium 10 mg 01/04/19 22:00 01/04/19 21:15 Lipitor - PO 10 mg HS NOE Administration Clopidogrel Bisulfate 75 mg 01/05/19 10:00 Plavix - PO DAILY NOE Collagenase 1 applic 01/05/19 10:00 Santyl - TP DAILY NOE Protocol Epoetin Kin 10,000 unit 01/05/19 06:00 Epogen - IVPUSH 01/05/19 06:01 ONCE ONE Ferrous Sulfate 325 mg 01/05/19 10:00 Feosol - PO DAILY NOE Heparin Sodium (Porcine) 5,000 unit 01/04/19 22:00 01/05/19 05:32 Heparin - SQ 5,000 unit TID NOE Administration Sodium Chloride 250 mls @ 3,000 mls/hr 01/04/19 18:00 Normal Saline - IV 01/05/19 14:47 PRN PRN Hypotension during Dialysis Dextrose 1,000 mls @ 42 mls/hr 01/04/19 18:00 01/04/19 18:34 D5w - IV Not Given ASDIR NOE Piperacillin Sod/Tazobactam 50 mls @ 100 mls/hr 01/04/19 18:00 01/05/19 02:24 Sod 2.25 gm/ Dextrose IVPB 100 mls/hr Q8H-IV NOE Administration Protocol Insulin Aspart 1 vial 01/05/19 07:00 01/05/19 06:08 Novolog Vial Sliding Scale - SQ Not Given [facility]AC [facility] Protocol Labetalol HCl 300 mg 01/04/19 22:00 01/05/19 06:07 Normodyne - PO Not Given TID NOE Losartan Potassium 50 mg 01/05/19 10:00 Cozaar - PO DAILY NOE Morphine Sulfate 4 mg 01/04/19 17:21 01/05/19 05:27 Morphine Sulfate IVPUSH 4 mg Q6H PRN Administration PAIN LEVEL 6-10 Nifedipine 30 mg 01/04/19 22:00 01/04/19 21:16 Procardia Xl - PO 30 mg BID NOE Administration Ondansetron HCl 4 mg 01/04/19 18:00 Zofran Injection IVPUSH Q6H PRN NAUSEA AND/OR VOMITING Promethazine HCl 12.5 mg 01/04/19 18:00 Phenergan Injection - IVPB Q6H PRN NAUSEA-FOR RESCUE AFTER 15 MIN Senna 2 tab 01/04/19 22:00 01/04/19 21:15 Senna - PO 2 tab HS NOE Administration Sevelamer Carbonate 800 mg 01/05/19 08:00 01/05/19 08:58 Renvela - PO 800 mg TIDCM NOE Administration IMPRESSION 78 year old woman with hx of ESRD on HD (TTS, PVD s/p TMA 2018, HTN, DM, hyperlipidemia who presented with left heel wound. Pt reports wound has been itching and had become foul smelling. #s/p BKA yesterday #ESRD on HD #DM #PVD #Hypertension PLAN will be dialyzed today pain control as needed- seems comfortable will continue SHARA with HD for anemia Abx as per ID monitor hgb given BKA MV
--- NOTE | 2019-01-05 09:22 | OP ---
DATE OF OPERATION: 01/04/2019 PREOPERATIVE DIAGNOSIS: Left foot gangrene. POSTOPERATIVE DIAGNOSIS: Left foot gangrene. PROCEDURE PERFORMED: Left below-knee amputation. SURGEON: Boris Blake DO GRADUATE ASSISTANT ATHLETIC TRAINER: , YUMIKO ANESTHESIA: General. ESTIMATED BLOOD LOSS: 150 mL. INDICATIONS: The patient is a 78-year-old female with left foot gangrene. She has had multiple procedures done to her left foot. She has had an angioplasty with TMA performed in the past. She then went on to go to a subacute rehabilitation facility, where she ended up developing left heel gangrene that was foul-smelling, and she came back to [facility]. We then shot an angiogram recently of her left lower extremity, showing that she does not have any runoff to her posterior tibial artery and there is only minimal runoff going down to the forefoot. At this point we decided that the patient would need a BKA. The patient was consented for the procedure, understanding all risks, benefits and alternatives. DESCRIPTION OF PROCEDURE: The patient was then taken to the operating room. Once in the operating room, she was laid on the operating table in the supine manner. The area of the left lower extremity was prepped and draped in a sterile surgical manner. We then went ahead and went 4 fingerbreadths below the tibial tuberosity and rizwana a step-off incision for our flap. We then went ahead and used a number 15 blade and we cut along our marked incision site, going circumferentially. Bovie electrocautery was used to control hemostasis. We were then able to get through the subcutaneous tissue using Bovie electrocautery, and we got down to the tibia. Once we got down to the tibia, we went lateral to the tibia and we were able to take down all the muscular attachments around the tibia. We then got down to the posterior tibial artery, and the posterior tibial artery was dissected anteriorly and posteriorly, along with the vein, and clamped, and we ligated it and tied it off using 0 silk. We then went medially and went through the muscular attachments and got down to the anterior tibial artery. The anterior tibial artery was dissected anteriorly and posteriorly, along with the vein. Then it was both clamped and ligated, and 0 silk was used to ligate the vein and the artery. We then took down the soleus muscle and got down to the peroneal artery and vein. Those were clamped together and ligated using. Using a 0 tie, we were able to tie off the anterior tibial vein and artery. Once completed there, we were able to take down the posterior attachments to the muscle. The hamstring muscles were taken down, and the flap was freed up. At this point we took our bone saw, and we were able to take down the tibia and the fibula. Once the leg was free, it was sent down to pathology. We then took our bone saw, and we were able to take the fibula up a little bit higher, and we bovied the tibia so it cannot interfere in the wound. We then irrigated the wound copiously. Bovie electrocautery was used to control all hemostasis. We then went ahead and used 2-0 Vicryl and we went ahead and approximated the flap, going fascia to fascia. We were able to do 2 layers of that. We then went ahead and closed the skin with skin basil. Once completed, the area was wet and dried. Xeroform, 4 x 4's, Kerlix and Coban were placed. The patient tolerated the procedure with no complications. Total blood loss was 150 mL. The patient's leg was placed into a knee immobilizer on the way out. BORIS BLAKE DO [id number]
--- NOTE | 2019-01-05 09:23 | PN ---
Progress Note, Physician History of Present Illness: patient post op stable - Current Medication List Current Medications: Active Medications Acetaminophen (Tylenol -) 650 mg PO Q4H PRN PRN Reason: FEVER Last Admin: 01/05/19 02:09 Dose: 650 mg Atorvastatin Calcium (Lipitor -) 10 mg PO HS [facility] Last Admin: 01/04/19 21:15 Dose: 10 mg Clopidogrel Bisulfate (Plavix -) 75 mg PO DAILY [facility] Collagenase (Santyl -) 1 applic TP DAILY [facility]; Protocol Epoetin Kin (Epogen -) 10,000 unit IVPUSH ONCE ONE Stop: 01/05/19 06:01 Ferrous Sulfate (Feosol -) 325 mg PO DAILY [facility] Heparin Sodium (Porcine) (Heparin -) 5,000 unit SQ TID [facility] Last Admin: 01/05/19 05:32 Dose: 5,000 unit Sodium Chloride (Normal Saline -) 250 mls @ 3,000 mls/hr IV PRN PRN PRN Reason: Hypotension during Dialysis Stop: 01/05/19 14:47 Dextrose (D5w -) 1,000 mls @ 42 mls/hr IV ASDIR [facility] Last Admin: 01/04/19 18:34 Dose: Not Given Piperacillin Sod/Tazobactam (Sod 2.25 gm/ Dextrose) 50 mls @ 100 mls/hr IVPB Q8H-IV [facility]; Protocol Last Admin: 01/05/19 02:24 Dose: 100 mls/hr Insulin Aspart (Novolog Vial Sliding Scale -) 1 vial SQ TIDAC [facility]; Protocol Last Admin: 01/05/19 06:08 Dose: Not Given Labetalol HCl (Normodyne -) 300 mg PO TID [facility] Last Admin: 01/05/19 06:07 Dose: Not Given Losartan Potassium (Cozaar -) 50 mg PO DAILY [facility] Morphine Sulfate (Morphine Sulfate) 4 mg IVPUSH Q6H PRN PRN Reason: PAIN LEVEL 6-10 Last Admin: 01/05/19 05:27 Dose: 4 mg Nifedipine (Procardia Xl -) 30 mg PO BID [facility] Last Admin: 01/04/19 21:16 Dose: 30 mg Ondansetron HCl (Zofran Injection) 4 mg IVPUSH Q6H PRN PRN Reason: NAUSEA AND/OR VOMITING Promethazine HCl (Phenergan Injection -) 12.5 mg IVPB Q6H PRN PRN Reason: NAUSEA-FOR RESCUE AFTER 15 MIN Senna (Senna -) 2 tab PO HS [facility] Last Admin: 01/04/19 21:15 Dose: 2 tab Sevelamer Carbonate (Renvela -) 800 mg PO TIDCM [facility] Last Admin: 01/05/19 08:58 Dose: 800 mg - Objective Vital Signs: Vital Signs Temperature 98.6 F 01/05/19 06:00 Pulse Rate 66 01/05/19 06:00 Respiratory Rate 20 01/05/19 06:00 Blood Pressure 144/71 01/05/19 06:00 O2 Sat by Pulse Oximetry (%) 99 01/04/19 21:00 Constitutional: Yes: Calm Cardiovascular: Yes: S1, S2 Respiratory: Yes: Regular, CTA Bilaterally Gastrointestinal: Yes: Normal Bowel Sounds, Soft Musculoskeletal: Yes: WNL Extremities: Yes: Other Neurological: Yes: Alert, Oriented Psychiatric: Yes: Alert, Oriented Labs: CBC, BMP 01/04/19 06:27 01/04/19 06:20 INR, PTT INR 1.25 (0.83-1.09) H 01/04/19 06:27 Assessment/Plan 78 yof with PMHx of ESRD on HD (T,Th,S), HTN, HLD, PVD (s/p left TMA/flap), admitted with Left heel infection concerning for abscess +/- osteomyelitis. -Left heel infection, suspicious for abscess, r/o osteomyelitis -PVD -s/p Left TMA/flap surgery -ESRD on HD -HTN -HLD plan deescalate abx tomorrow continue current mgmt wound care rest as per the team
[2019-01-05] MEDS: COLLAGENASE CLOSTRIDIUM HIST. 30 GRAMS TUBE TP SCH (10:15)
[2019-01-05 11:00] LABS: BASO % 0.4 % (0-2.0); EOS % 0.1 % (0-4.5); HEMATOCRIT 26.1 % (32.4-45.2); HEMOGLOBIN 8.2 GM/dL (10.7-15.3); LYMPH % 11.4 % (8-40); MCH 28.6 pg (25.7-33.7); MCHC 31.3 g/dl (32.0-36.0); MEAN CELL VOLUME 91.4 fl (80-96); MEAN PLT VOLUME 7.8 fl (7.5-11.1); MONO % 7.5 % (3.8-10.2); NEUT % 80.6 % (42.8-82.8); PLATELET COUNT 266 K/MM3 (134-434); RBC 2.86 M/mm3 (3.60-5.2); RDW 17.1 % (11.6-15.6); WHITE BLOOD COUNT 11.1 K/mm3 (4.0-10.0)
[2019-01-05 11:49] LABS: CALCIUM 8.7 mg/dL (8.5-10.1); CREATININE 3.4 mg/dL (0.55-1.3); PHOSPHOROUS 3.4 mg/dL (2.5-4.9); POTASSIUM 3.7 mmol/L (3.5-5.1)
--- NOTE | 2019-01-05 13:46 | PN ---
Progress Note, Physician Chief Complaint: Ms Crain is without complaint. Denies cp, sob, n/v. - Current Medication List Current Medications: Active Medications Acetaminophen (Tylenol -) 650 mg PO Q4H PRN PRN Reason: FEVER Last Admin: 01/05/19 02:09 Dose: 650 mg Atorvastatin Calcium (Lipitor -) 10 mg PO HS [facility]E Last Admin: 01/04/19 21:15 Dose: 10 mg Clopidogrel Bisulfate (Plavix -) 75 mg PO DAILY [facility] Collagenase (Santyl -) 1 applic TP DAILY [facility]; Protocol Last Admin: 01/05/19 10:15 Dose: Not Given Ferrous Sulfate (Feosol -) 325 mg PO DAILY [facility] Heparin Sodium (Porcine) (Heparin -) 5,000 unit SQ TID [facility] Last Admin: 01/05/19 05:32 Dose: 5,000 unit Sodium Chloride (Normal Saline -) 250 mls @ 3,000 mls/hr IV PRN PRN PRN Reason: Hypotension during Dialysis Stop: 01/05/19 14:47 Dextrose (D5w -) 1,000 mls @ 42 mls/hr IV ASDIR [facility] Last Admin: 01/04/19 18:34 Dose: Not Given Piperacillin Sod/Tazobactam (Sod 2.25 gm/ Dextrose) 50 mls @ 100 mls/hr IVPB Q8H-IV [facility]; Protocol Last Admin: 01/05/19 09:31 Dose: 100 mls/hr Insulin Aspart (Novolog Vial Sliding Scale -) 1 vial SQ TIDAC [facility]; Protocol Last Admin: 01/05/19 06:08 Dose: Not Given Labetalol HCl (Normodyne -) 300 mg PO TID [facility] Last Admin: 01/05/19 06:07 Dose: Not Given Losartan Potassium (Cozaar -) 50 mg PO DAILY [facility] Morphine Sulfate (Morphine Sulfate) 4 mg IVPUSH Q6H PRN PRN Reason: PAIN LEVEL 6-10 Last Admin: 01/05/19 05:27 Dose: 4 mg Nifedipine (Procardia Xl -) 30 mg PO BID [facility] Last Admin: 01/04/19 21:16 Dose: 30 mg Ondansetron HCl (Zofran Injection) 4 mg IVPUSH Q6H PRN PRN Reason: NAUSEA AND/OR VOMITING Promethazine HCl (Phenergan Injection -) 12.5 mg IVPB Q6H PRN PRN Reason: NAUSEA-FOR RESCUE AFTER 15 MIN Senna (Senna -) 2 tab PO HS [facility] Last Admin: 01/04/19 21:15 Dose: 2 tab Sevelamer Carbonate (Renvela -) 800 mg PO TIDCM [facility] Last Admin: 01/05/19 08:58 Dose: 800 mg - Objective Vital Signs: Vital Signs Temperature 37.2 C 01/05/19 09:00 Pulse Rate 66 01/05/19 12:55 Respiratory Rate 18 01/05/19 12:55 Blood Pressure 140/73 01/05/19 12:55 O2 Sat by Pulse Oximetry (%) 99 01/04/19 21:00 Constitutional: Yes: Well Nourished, No Distress, Calm Cardiovascular: Yes: Regular Rate and Rhythm. No: Gallop, Murmur, Rub Respiratory: Yes: Regular, CTA Bilaterally. No: Rales, Rhonchi, Wheezes Gastrointestinal: Yes: Normal Bowel Sounds, Soft. No: Distention, Tenderness Musculoskeletal: Yes: Other (L BKA) Edema: No Labs: CBC, BMP 01/05/19 10:30 01/05/19 10:30 INR, PTT INR 1.25 (0.83-1.09) H 01/04/19 06:27 Problem List - Problems (1) Osteomyelitis Code(s): M86.9 - OSTEOMYELITIS, UNSPECIFIED (2) Foot ulcer Code(s): L97.509 - NON-PRESSURE CHRONIC ULCER OTH PRT UNSP FOOT W UNSP SEVERITY Qualifiers: Laterality: left Non-pressure ulcer stage: unspecified non-pressure ulcer stage Qualified Code(s): L97.529 - Non-pressure chronic ulcer of other part of left foot with unspecified severity (3) ESRD (end stage renal disease) on dialysis Code(s): N18.6 - END STAGE RENAL DISEASE; Z99.2 - DEPENDENCE ON RENAL DIALYSIS (4) Hypertension Code(s): I10 - ESSENTIAL (PRIMARY) HYPERTENSION Qualifiers: Hypertension type: essential hypertension Qualified Code(s): I10 - Essential (primary) hypertension (5) Anemia Code(s): D64.9 - ANEMIA, UNSPECIFIED Qualifiers: Anemia type: due to chronic kidney disease Chronic kidney disease stage: on chronic dialysis Qualified Code(s): N18.6 - End stage renal disease; D63.1 - Anemia in chronic kidney disease; Z99.2 - Dependence on renal dialysis (6) Diabetes Code(s): E11.9 - TYPE 2 DIABETES MELLITUS WITHOUT COMPLICATIONS Qualifiers: Diabetes mellitus type: type 2 Diabetes mellitus snf insulin use: without snf use Diabetes mellitus complication status: with kidney complications Diabetes mellitus complication detail: with chronic kidney disease Chronic kidney disease stage: on chronic dialysis Qualified Code(s) : E11.22 - Type 2 diabetes mellitus with diabetic chronic kidney disease; N18.6 - End stage renal disease; Z99.2 - Dependence on renal dialysis (7) Hyperlipidemia Code(s): E78.5 - HYPERLIPIDEMIA, UNSPECIFIED Qualifiers: Hyperlipidemia type: pure hypercholesterolemia Qualified Code(s): E78.00 - Pure hypercholesterolemia, unspecified; E78.0 - Pure hypercholesterolemia (8) PAD (peripheral artery disease) Code(s): I73.9 - PERIPHERAL VASCULAR DISEASE, UNSPECIFIED (9) Hypokalemia Code(s): E87.6 - HYPOKALEMIA Assessment/Plan (1) Osteomyelitis Assessment/Plan: -s/p BKA and tolerated well -case d/w ID, de-escalate antibiotics tomorrow Code(s): M86.9 - OSTEOMYELITIS, UNSPECIFIED (2) Foot ulcer Assessment/Plan: -as above Code(s): L97.509 - NON-PRESSURE CHRONIC ULCER OTH PRT UNSP FOOT W UNSP SEVERITY Qualifiers: Laterality: left Non-pressure ulcer stage: unspecified non-pressure ulcer stage Qualified Code(s): L97.529 - Non-pressure chronic ulcer of other part of left foot with unspecified severity (3) ESRD (end stage renal disease) on dialysis Assessment/Plan: -continue HD Code(s): N18.6 - END STAGE RENAL DISEASE; Z99.2 - DEPENDENCE ON RENAL DIALYSIS (4) Hypertension Assessment/Plan: -continue losartan, labetalol, and nifedipine Code(s): I10 - ESSENTIAL (PRIMARY) HYPERTENSION Qualifiers: Hypertension type: essential hypertension Qualified Code(s): I10 - Essential (primary) hypertension (5) Anemia Assessment/Plan: -at baseline Code(s): D64.9 - ANEMIA, UNSPECIFIED Qualifiers: Anemia type: due to chronic kidney disease Chronic kidney disease stage: on chronic dialysis Qualified Code(s): N18.6 - End stage renal disease; D63.1 - Anemia in chronic kidney disease; Z99.2 - Dependence on renal dialysis (6) Diabetes Assessment/Plan: -continue diabetic diet -continue SSI Code(s): E11.9 - TYPE 2 DIABETES MELLITUS WITHOUT COMPLICATIONS Qualifiers: Diabetes mellitus type: type 2 Diabetes mellitus snf insulin use: 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 Diabetes mellitus complication status: with kidney complications Diabetes mellitus complication detail: with chronic kidney disease Chronic kidney disease stage: on chronic dialysis Qualified Code(s) : E11.22 - Type 2 diabetes mellitus with diabetic chronic kidney disease; N18.6 - End stage renal disease; Z99.2 - Dependence on renal dialysis (7) Hyperlipidemia Assessment/Plan: -continue statin Code(s): E78.5 - HYPERLIPIDEMIA, UNSPECIFIED Qualifiers: Hyperlipidemia type: pure hypercholesterolemia Qualified Code(s): E78.00 - Pure hypercholesterolemia, unspecified; E78.0 - Pure hypercholesterolemia (8) PAD (peripheral artery disease) Assessment/Plan: -plavix restarted Code(s): I73.9 - PERIPHERAL VASCULAR DISEASE, UNSPECIFIED (9) Hypokalemia Assessment/Plan: -nephrology following Code(s): E87.6 - HYPOKALEMIA
[2019-01-05] MEDS: NIFEdipine E.R. 30 MG TABLET (FP) PO SCH ×2 (16:21→21:18)
[2019-01-05] MEDS: CLOPIDOGREL BISULFATE 75 MG TABLET (FP) PO SCH (16:28)
[2019-01-05] MEDS: FERROUS SO4 325 MG TABLET (FP) PO SCH (16:29)
[2019-01-05] MEDS: LOSARTAN POTASSIUM 50 MG TABLET (FP) PO SCH (16:30)
[2019-01-05] MEDS: ATORVASTATIN CA 10 MG TABLET (FP) PO SCH (21:17)
[2019-01-05] MEDS: SENNOSIDES 8.6MG TABLET (FP) PO SCH (21:17)
[2019-01-06] MEDS ORDERED: PIPERACILLIN/TAZOBACTAM 2.25 GM VIAL IVPB ONE ×2 (00:15→08:19)
[2019-01-06] MEDS ORDERED: DEXTROSE 5%-WATER - 50 ML IVPB ONE ×2 (00:15→08:19)
[2019-01-06] MEDS: morphine SULFATE 4 MG/ML VIAL IVPUSH PRN (00:37)
[2019-01-06] MEDS: PIPERACILLIN/TAZOB 2.25 GM 2.25 GM in DEXTROSE 5%-WATER - 50 ML IVPB SCH ×2 (01:33→09:21)
[2019-01-06] MEDS: INSULIN SLIDING SCALE (NOVOLOG) 1 VIAL SQ SCH ×3 (06:05→16:41)
[2019-01-06] MEDS: HEPARIN NA (PORCINE) 5,000 UNITS/ML 1ML VIAL SQ SCH ×3 (06:14→21:09)
[2019-01-06] MEDS: LABETALOL HCL 100 MG TABLET (FP) PO SCH ×3 (06:15→21:08)
[2019-01-06] MEDS: SEVELAMER CARBONATE 800 MG TAB (FP) PO SCH ×3 (08:34→16:44)
--- NOTE | 2019-01-06 08:57 | PN ---
Progress Note (short form) - Note Progress Note: RENAL Coverage for Dr Smith Pt seen and examined she denies complaints Last Vital Signs Temp Pulse Resp BP Pulse Ox 99.4 F 72 20 150/68 98 01/06/19 06:00 01/06/19 06:00 01/06/19 06:00 01/06/19 06:00 01/05/19 21:00 lungs clear cvs s1s2 rr abd soft ext no edema on RLE, had amputaion on left, bruit over avf neuro a+ox3 CBC, BMP 01/05/19 10:30 01/05/19 14:00 Current Medications Generic Name Dose Route Start Last Admin Trade Name Freq PRN Reason Stop Dose Admin Acetaminophen 650 mg 01/04/19 18:00 01/05/19 02:09 Tylenol - PO 650 mg Q4H PRN Administration FEVER Atorvastatin Calcium 10 mg 01/04/19 22:00 01/05/19 21:17 Lipitor - PO 10 mg HS NOE Administration Clopidogrel Bisulfate 75 mg 01/05/19 10:00 01/05/19 16:28 Plavix - PO 75 mg DAILY [facility] Administration Collagenase 1 applic 01/05/19 10:00 01/05/19 10:15 Santyl - TP Not Given DAILY [facility] Protocol Ferrous Sulfate 325 mg 01/05/19 10:00 01/05/19 16:29 Feosol - PO 325 mg DAILY [facility] Administration Heparin Sodium (Porcine) 5,000 unit 01/04/19 22:00 01/06/19 06:14 Heparin - SQ 5,000 unit TID NOE Administration Dextrose 1,000 mls @ 42 mls/hr 01/04/19 18:00 01/04/19 18:34 D5w - IV Not Given ASDIR [facility]E Piperacillin Sod/Tazobactam 50 mls @ 100 mls/hr 01/04/19 18:00 01/06/19 01:33 Sod 2.25 gm/ Dextrose IVPB 100 mls/hr Q8H-IV [facility] Administration Protocol Insulin Aspart 1 vial 01/05/19 07:00 01/06/19 06:05 Novolog Vial Sliding Scale - SQ Not Given TIDAC NOE Protocol Labetalol HCl 300 mg 01/04/19 22:00 01/06/19 06:15 Normodyne - PO 300 mg TID [facility]E Administration Losartan Potassium 50 mg 01/05/19 10:00 01/05/19 16:30 Cozaar - PO 50 mg DAILY [facility] Administration Morphine Sulfate 4 mg 01/04/19 17:21 01/06/19 00:37 Morphine Sulfate IVPUSH 4 mg Q6H PRN Administration PAIN LEVEL 6-10 Nifedipine 30 mg 01/04/19 22:00 01/05/19 21:18 Procardia Xl - PO 30 mg BID [facility]E Administration Ondansetron HCl 4 mg 01/04/19 18:00 Zofran Injection IVPUSH Q6H PRN NAUSEA AND/OR VOMITING Promethazine HCl 12.5 mg 01/04/19 18:00 Phenergan Injection - IVPB Q6H PRN NAUSEA-FOR RESCUE AFTER 15 MIN Senna 2 tab 01/04/19 22:00 01/05/19 21:17 Senna - PO 2 tab HS NOE Administration Sevelamer Carbonate 800 mg 01/05/19 08:00 01/06/19 08:34 Renvela - PO 800 mg TIDCM [facility]E Administration IMPRESSION 78 year old woman with hx of ESRD on HD (TTS, PVD s/p TMA 2018, HTN, DM, hyperlipidemia who presented with left heel wound. Pt reported wound has been itching and had become foul smelling. #s/p BKA 2 days ago #ESRD on HD #DM #PVD #Hypertension PLAN was dialyzed yesterday. creat may be an error. Seems to have been post HD pain control as needed- seems comfortable will continue SHARA with HD for anemia Abx as per ID monitor hgb given BKA- had dropped yesterday MV
[2019-01-06] MEDS: CLOPIDOGREL BISULFATE 75 MG TABLET (FP) PO SCH (09:20)
[2019-01-06] MEDS: NIFEdipine E.R. 30 MG TABLET (FP) PO SCH ×2 (09:20→21:08)
[2019-01-06] MEDS: FERROUS SO4 325 MG TABLET (FP) PO SCH (09:20)
[2019-01-06] MEDS: LOSARTAN POTASSIUM 50 MG TABLET (FP) PO SCH (09:20)
[2019-01-06] MEDS: COLLAGENASE CLOSTRIDIUM HIST. 30 GRAMS TUBE TP SCH (09:21)
--- NOTE | 2019-01-06 13:12 | PN ---
Progress Note, Physician History of Present Illness: stable no issues feels better - Current Medication List Current Medications: Active Medications Acetaminophen (Tylenol -) 650 mg PO Q4H PRN PRN Reason: FEVER Last Admin: 01/05/19 02:09 Dose: 650 mg Atorvastatin Calcium (Lipitor -) [address] [facility] Last Admin: 01/05/19 21:17 Dose: 10 mg Clopidogrel Bisulfate (Plavix -) [address] [facility] Last Admin: 01/06/19 09:20 Dose: 75 mg Collagenase (Santyl -) [address] [facility]; Protocol Last Admin: 01/06/19 09:21 Dose: Not Given Ferrous Sulfate (Feosol -) [address] [facility] Last Admin: 01/06/19 09:20 Dose: 325 mg Heparin Sodium (Porcine) (Heparin -) 5,[address] [facility] Last Admin: 01/06/19 06:14 Dose: 5,000 unit Dextrose (D5w -) 1,000 mls @ 42 mls/hr IV ASDIR [facility] Last Admin: 01/04/19 18:34 Dose: Not Given Piperacillin Sod/Tazobactam (Sod 2.25 gm/ Dextrose) 50 mls @ 100 mls/hr IVPB Q8H-IV [facility]; Protocol Last Admin: 01/06/19 09:21 Dose: 100 mls/hr Insulin Aspart (Novolog Vial Sliding Scale -) [address] [facility]; Protocol Last Admin: 01/06/19 11:27 Dose: Not Given Labetalol HCl (Normodyne -) [address] [facility] Last Admin: 01/06/19 06:15 Dose: 300 mg Losartan Potassium (Cozaar -) [address] [facility] Last Admin: 01/06/19 09:20 Dose: 50 mg Morphine Sulfate (Morphine Sulfate) 4 mg IVPUSH Q6H PRN PRN Reason: PAIN LEVEL 6-10 Last Admin: 01/06/19 00:37 Dose: 4 mg Nifedipine (Procardia Xl -) [address] [facility] Last Admin: 01/06/19 09:20 Dose: 30 mg Ondansetron HCl (Zofran Injection) 4 mg IVPUSH Q6H PRN PRN Reason: NAUSEA AND/OR VOMITING Promethazine HCl (Phenergan Injection -) 12.5 mg IVPB Q6H PRN PRN Reason: NAUSEA-FOR RESCUE AFTER 15 MIN Senna (Senna -) [address] [facility] Last Admin: 01/05/19 21:17 Dose: 2 tab Sevelamer Carbonate (Renvela -) [address] [facility] Last Admin: 01/06/19 11:25 Dose: 800 mg - Objective Vital Signs: Vital Signs Temperature 98.8 F 01/06/19 10:00 Pulse Rate 72 01/06/19 10:00 Respiratory Rate 69 H 01/06/19 10:00 Blood Pressure 118/61 01/06/19 10:00 O2 Sat by Pulse Oximetry (%) 94 L 01/06/19 09:00 Constitutional: Yes: No Distress, Calm Cardiovascular: Yes: S1, S2 Respiratory: Yes: Regular, CTA Bilaterally Gastrointestinal: Yes: Normal Bowel Sounds, Soft Musculoskeletal: Yes: Other Extremities: Yes: Other Wound/Incision: Yes: Dressing Dry and Intact Neurological: Yes: Alert, Oriented Psychiatric: Yes: Alert, Oriented Labs: CBC, BMP 01/05/19 10:30 01/05/19 14:00 INR, PTT INR 1.25 (0.83-1.09) H 01/04/19 06:27 Assessment/Plan 78 yof with PMHx of ESRD on HD (T,Th,S), HTN, HLD, PVD (s/p left TMA/flap), admitted with Left heel infection concerning for abscess +/- osteomyelitis. -Left heel infection, suspicious for abscess, r/o osteomyelitis -PVD -s/p Left TMA/flap surgery -ESRD on HD -HTN -HLD plan will monitor off of abx wound care vascular rest as per the team
--- NOTE | 2019-01-06 15:01 | PN ---
Progress Note, Physician Chief Complaint: Ms Crain is without complaint today. Denies cp, sob, n/v. - Current Medication List Current Medications: Active Medications Acetaminophen (Tylenol -) 650 mg PO Q4H PRN PRN Reason: FEVER Last Admin: 01/05/19 02:09 Dose: 650 mg Atorvastatin Calcium (Lipitor -) 10 mg PO HS [facility] Last Admin: 01/05/19 21:17 Dose: 10 mg Clopidogrel Bisulfate (Plavix -) 75 mg PO DAILY [facility] Last Admin: 01/06/19 09:20 Dose: 75 mg Collagenase (Santyl -) 1 applic TP DAILY [facility]; Protocol Last Admin: 01/06/19 09:21 Dose: Not Given Ferrous Sulfate (Feosol -) 325 mg PO DAILY [facility] Last Admin: 01/06/19 09:20 Dose: 325 mg Heparin Sodium (Porcine) (Heparin -) 5,000 unit SQ TID [facility] Last Admin: 01/06/19 14:03 Dose: 5,000 unit Insulin Aspart (Novolog Vial Sliding Scale -) 1 vial SQ TIDAC [facility]; Protocol Last Admin: 01/06/19 11:27 Dose: Not Given Labetalol HCl (Normodyne -) 300 mg PO TID [facility] Last Admin: 01/06/19 14:03 Dose: 300 mg Losartan Potassium (Cozaar -) 50 mg PO DAILY [facility] Last Admin: 01/06/19 09:20 Dose: 50 mg Morphine Sulfate (Morphine Sulfate) 4 mg IVPUSH Q6H PRN PRN Reason: PAIN LEVEL 6-10 Last Admin: 01/06/19 00:37 Dose: 4 mg Nifedipine (Procardia Xl -) 30 mg PO BID [facility] Last Admin: 01/06/19 09:20 Dose: 30 mg Ondansetron HCl (Zofran Injection) 4 mg IVPUSH Q6H PRN PRN Reason: NAUSEA AND/OR VOMITING Promethazine HCl (Phenergan Injection -) 12.5 mg IVPB Q6H PRN PRN Reason: NAUSEA-FOR RESCUE AFTER 15 MIN Senna (Senna -) 2 tab PO HS [facility] Last Admin: 01/05/19 21:17 Dose: 2 tab Sevelamer Carbonate (Renvela -) 800 mg PO TIDCM [facility] Last Admin: 01/06/19 11:25 Dose: 800 mg - Objective Vital Signs: Vital Signs Temperature 37.1 C 01/06/19 10:00 Pulse Rate 72 01/06/19 10:00 Respiratory Rate 69 H 01/06/19 10:00 Blood Pressure 118/61 01/06/19 10:00 O2 Sat by Pulse Oximetry (%) 94 L 01/06/19 09:00 Constitutional: Yes: Well Nourished, No Distress, Calm Cardiovascular: Yes: Regular Rate and Rhythm. No: Gallop, Murmur, Rub Respiratory: Yes: Regular, CTA Bilaterally. No: Rales, Rhonchi, Wheezes Gastrointestinal: Yes: Normal Bowel Sounds, Soft. No: Distention, Tenderness Extremities: Yes: Other (L BKA) Edema: No Labs: CBC, BMP 01/05/19 10:30 01/05/19 14:00 INR, PTT INR 1.25 (0.83-1.09) H 01/04/19 06:27 Problem List - Problems (1) Osteomyelitis Code(s): M86.9 - OSTEOMYELITIS, UNSPECIFIED (2) Foot ulcer Code(s): L97.509 - NON-PRESSURE CHRONIC ULCER OTH PRT UNSP FOOT W UNSP SEVERITY Qualifiers: Laterality: left Non-pressure ulcer stage: unspecified non-pressure ulcer stage Qualified Code(s): L97.529 - Non-pressure chronic ulcer of other part of left foot with unspecified severity (3) ESRD (end stage renal disease) on dialysis Code(s): N18.6 - END STAGE RENAL DISEASE; Z99.2 - DEPENDENCE ON RENAL DIALYSIS (4) Hypertension Code(s): I10 - ESSENTIAL (PRIMARY) HYPERTENSION Qualifiers: Hypertension type: essential hypertension Qualified Code(s): I10 - Essential (primary) hypertension (5) Anemia Code(s): D64.9 - ANEMIA, UNSPECIFIED Qualifiers: Anemia type: due to chronic kidney disease Chronic kidney disease stage: on chronic dialysis Qualified Code(s): N18.6 - End stage renal disease; D63.1 - Anemia in chronic kidney disease; Z99.2 - Dependence on renal dialysis (6) Diabetes Code(s): E11.9 - TYPE 2 DIABETES MELLITUS WITHOUT COMPLICATIONS Qualifiers: Diabetes mellitus type: type 2 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 use Diabetes mellitus complication status: with kidney complications Diabetes mellitus complication detail: with chronic kidney disease Chronic kidney disease stage: on chronic dialysis Qualified Code(s) : E11.22 - Type 2 diabetes mellitus with diabetic chronic kidney disease; N18.6 - End stage renal disease; Z99.2 - Dependence on renal dialysis (7) Hyperlipidemia Code(s): E78.5 - HYPERLIPIDEMIA, UNSPECIFIED Qualifiers: Hyperlipidemia type: pure hypercholesterolemia Qualified Code(s): E78.00 - Pure hypercholesterolemia, unspecified; E78.0 - Pure hypercholesterolemia (8) PAD (peripheral artery disease) Code(s): I73.9 - PERIPHERAL VASCULAR DISEASE, UNSPECIFIED (9) Hypokalemia Code(s): E87.6 - HYPOKALEMIA Assessment/Plan (1) Osteomyelitis Assessment/Plan: -s/p BKA and tolerated well -monitor off of antibiotics -begin dispo planning Code(s): M86.9 - OSTEOMYELITIS, UNSPECIFIED (2) Foot ulcer Assessment/Plan: -as above Code(s): L97.509 - NON-PRESSURE CHRONIC ULCER OTH PRT UNSP FOOT W UNSP SEVERITY Qualifiers: Laterality: left Non-pressure ulcer stage: unspecified non-pressure ulcer stage Qualified Code(s): L97.529 - Non-pressure chronic ulcer of other part of left foot with unspecified severity (3) ESRD (end stage renal disease) on dialysis Assessment/Plan: -continue HD Code(s): N18.6 - END STAGE RENAL DISEASE; Z99.2 - DEPENDENCE ON RENAL DIALYSIS (4) Hypertension Assessment/Plan: -continue losartan, labetalol, and nifedipine Code(s): I10 - ESSENTIAL (PRIMARY) HYPERTENSION Qualifiers: Hypertension type: essential hypertension Qualified Code(s): I10 - Essential (primary) hypertension (5) Anemia Assessment/Plan: -at baseline Code(s): D64.9 - ANEMIA, UNSPECIFIED Qualifiers: Anemia type: due to chronic kidney disease Chronic kidney disease stage: on chronic dialysis Qualified Code(s): N18.6 - End stage renal disease; D63.1 - Anemia in chronic kidney disease; Z99.2 - Dependence on renal dialysis (6) Diabetes Assessment/Plan: -continue diabetic diet -continue SSI Code(s): E11.9 - TYPE 2 DIABETES MELLITUS WITHOUT COMPLICATIONS Qualifiers: Diabetes mellitus type: type 2 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 use Diabetes mellitus complication status: with kidney complications Diabetes mellitus complication detail: with chronic kidney disease Chronic kidney disease stage: on chronic dialysis Qualified Code(s) : E11.22 - Type 2 diabetes mellitus with diabetic chronic kidney disease; N18.6 - End stage renal disease; Z99.2 - Dependence on renal dialysis (7) Hyperlipidemia Assessment/Plan: -continue statin Code(s): E78.5 - HYPERLIPIDEMIA, UNSPECIFIED Qualifiers: Hyperlipidemia type: pure hypercholesterolemia Qualified Code(s): E78.00 - Pure hypercholesterolemia, unspecified; E78.0 - Pure hypercholesterolemia (8) PAD (peripheral artery disease) Assessment/Plan: -continue plavix Code(s): I73.9 - PERIPHERAL VASCULAR DISEASE, UNSPECIFIED (9) Hypokalemia Assessment/Plan: -resolved Code(s): E87.6 - HYPOKALEMIA
[2019-01-06] MEDS: ACETAMINOPHEN 325 MG TABLET (FP) PO PRN (19:58)
[2019-01-06] MEDS: SENNOSIDES 8.6MG TABLET (FP) PO SCH (21:08)
[2019-01-06] MEDS: ATORVASTATIN CA 10 MG TABLET (FP) PO SCH (21:08)
[2019-01-07] MEDS: LABETALOL HCL 100 MG TABLET (FP) PO SCH ×3 (06:18→21:02)
[2019-01-07] MEDS: HEPARIN NA (PORCINE) 5,000 UNITS/ML 1ML VIAL SQ SCH ×3 (06:18→21:02)
[2019-01-07] MEDS: INSULIN SLIDING SCALE (NOVOLOG) 1 VIAL SQ SCH ×3 (06:21→17:54)
[2019-01-07 07:30] LABS: BASO % 0.7 % (0-2.0); EOS % 5.5 % (0-4.5); HEMATOCRIT 25.4 % (32.4-45.2); HEMOGLOBIN 8.1 GM/dL (10.7-15.3); LYMPH % 18.6 % (8-40); MCH 29.3 pg (25.7-33.7); MEAN CELL VOLUME 91.8 fl (80-96); MEAN PLT VOLUME 7.4 fl (7.5-11.1); MONO % 10.7 % (3.8-10.2); NEUT % 64.5 % (42.8-82.8); PLATELET COUNT 299 K/MM3 (134-434); RBC 2.76 M/mm3 (3.60-5.2); RDW 17.1 % (11.6-15.6); WHITE BLOOD COUNT 7.5 K/mm3 (4.0-10.0)
[2019-01-07 07:52] LABS: CALCIUM 8.7 mg/dL (8.5-10.1); CREATININE 3.4 mg/dL (0.55-1.3); MAGNESIUM 1.9 mg/dL (1.8-2.4); PHOSPHOROUS 2.1 mg/dL (2.5-4.9)
[2019-01-07] MEDS: SEVELAMER CARBONATE 800 MG TAB (FP) PO SCH ×3 (08:38→17:56)
--- NOTE | 2019-01-07 09:17 | PN ---
Progress Note, Physician History of Present Illness: patient stable no new issues - Current Medication List Current Medications: Active Medications Acetaminophen (Tylenol -) 650 mg PO Q4H PRN PRN Reason: FEVER Last Admin: 01/06/19 19:58 Dose: 650 mg Atorvastatin Calcium (Lipitor -) 10 mg PO HS [facility] Last Admin: 01/06/19 21:08 Dose: 10 mg Clopidogrel Bisulfate (Plavix -) 75 mg PO DAILY [facility] Last Admin: 01/06/19 09:20 Dose: 75 mg Collagenase (Santyl -) 1 applic TP DAILY [facility]; Protocol Last Admin: 01/06/19 09:21 Dose: Not Given Ferrous Sulfate (Feosol -) 325 mg PO DAILY [facility] Last Admin: 01/06/19 09:20 Dose: 325 mg Heparin Sodium (Porcine) (Heparin -) 5,000 unit SQ TID [facility] Last Admin: 01/07/19 06:18 Dose: 5,000 unit Insulin Aspart (Novolog Vial Sliding Scale -) 1 vial SQ TIDAC [facility]; Protocol Last Admin: 01/07/19 06:21 Dose: Not Given Labetalol HCl (Normodyne -) 300 mg PO TID [facility] Last Admin: 01/07/19 06:18 Dose: 300 mg Losartan Potassium (Cozaar -) 50 mg PO DAILY [facility] Last Admin: 01/06/19 09:20 Dose: 50 mg Morphine Sulfate (Morphine Sulfate) 4 mg IVPUSH Q6H PRN PRN Reason: PAIN LEVEL 6-10 Last Admin: 01/06/19 00:37 Dose: 4 mg Nifedipine (Procardia Xl -) 30 mg PO BID [facility] Last Admin: 01/06/19 21:08 Dose: 30 mg Ondansetron HCl (Zofran Injection) 4 mg IVPUSH Q6H PRN PRN Reason: NAUSEA AND/OR VOMITING Promethazine HCl (Phenergan Injection -) 12.5 mg IVPB Q6H PRN PRN Reason: NAUSEA-FOR RESCUE AFTER 15 MIN Senna (Senna -) 2 tab PO HS [facility] Last Admin: 01/06/19 21:08 Dose: 2 tab Sevelamer Carbonate (Renvela -) 800 mg PO TIDCM [facility] Last Admin: 01/07/19 08:38 Dose: 800 mg - Objective Vital Signs: Vital Signs Temperature 98.9 F 06/03/19 06:00 Pulse Rate 64 01/07/19 06:00 Respiratory Rate 18 01/07/19 06:00 Blood Pressure 135/76 01/07/19 06:00 O2 Sat by Pulse Oximetry (%) 94 L 01/06/19 21:00 Constitutional: Yes: No Distress, Calm Cardiovascular: Yes: S1, S2 Respiratory: Yes: Regular, CTA Bilaterally Gastrointestinal: Yes: Normal Bowel Sounds, Soft Musculoskeletal: Yes: WNL Extremities: Yes: Other (amputation) Neurological: Yes: Alert, Oriented Psychiatric: Yes: Alert, Oriented Labs: CBC, BMP 01/07/19 06:43 01/07/19 06:43 INR, PTT INR 1.25 (0.83-1.09) H 01/04/19 06:27 Assessment/Plan 78 yof with PMHx of ESRD on HD (T,Th,S), HTN, HLD, PVD (s/p left TMA/flap), admitted with Left heel infection concerning for abscess +/- osteomyelitis. -Left heel infection, suspicious for abscess, r/o osteomyelitis -PVD -s/p Left TMA/flap surgery -ESRD on HD -HTN -HLD plan continue current management wound care vascular rest as per the team
--- NOTE | 2019-01-07 10:00 | PN ---
Progress Note (short form) - Note Progress Note: POD 3, s/p L BKA Pt seen and examined. Reports she is feeling well. No issues over the weekend. Reports pain has been well controlled. Tolerating PO, voiding without issue. Denies cp/sob, n/v/d, calf pain/edema. Vital Signs Temp 98.9 F 01/07/19 06:00 Pulse 64 01/07/19 06:00 Resp 18 01/07/19 06:00 BP 135/76 01/07/19 06:00 Pulse Ox 94 L 01/06/19 21:00 Intake & Output 01/06/19 01/06/19 01/07/19 11:59 23:59 11:59 Intake Total 400 Balance 400 Weight 134 lb 11.2 oz 136 lb 14.4 oz Intake: IVPB 50 Oral 350 Other: Voiding Method Incontinent Incontinent # Unmeasured Voids Void 0 0 Bowel Movement No No Weight Measurement Method Built in Bedscale Built in Bedscale CBC, BMP 01/07/19 06:43 01/07/19 06:43 Gen: awake, alert nad Resp: Unlabored on RA LLE with dressing c/d/i. Dressing removed, incision c/d/i with basil in place , no erythema, no oozing, no hematoma. Approx 3x2cm blister at distal stump, no surrounding erythema or drainage. +TTP with dressing change. New 4x4 and kerlix placed as well as knee immobilizer. A/P: 78 y/o F w/ PMHx ESRD (T,Th,S), HTN, HLD, PVD (s/p amputation of L toes), admitted 12/27 with new L heel wound/gangrene, s/p angio 01/01 found to have Tibial disease with minimal flow to foot, now POD 3, s/p L BKA. Low grade temps over the weekend (Tmax 99), remainder of VSS. H/H 8.1 today from 9.8 on the day of surgery Wound stable -Change dressing daily, cover with 4x4, kerlix -Keep KI in place to avoid contracture -PT for range of motion -Monitor h/h, transfuse prn -Consider rehab if feasible -Encourage incentive spirometry -Pt should f/u in 2 weeks for staple removal d/w attending Dr Rodriguez
[2019-01-07] MEDS: CLOPIDOGREL BISULFATE 75 MG TABLET (FP) PO SCH (10:37)
[2019-01-07] MEDS: NIFEdipine E.R. 30 MG TABLET (FP) PO SCH ×2 (10:37→21:03)
[2019-01-07] MEDS: COLLAGENASE CLOSTRIDIUM HIST. 30 GRAMS TUBE TP SCH (10:37)
[2019-01-07] MEDS: LOSARTAN POTASSIUM 50 MG TABLET (FP) PO SCH (10:37)
[2019-01-07] MEDS: FERROUS SO4 325 MG TABLET (FP) PO SCH (10:37)
[2019-01-07] MEDS: ACETAMINOPHEN 325 MG TABLET (FP) PO PRN ×2 (10:43→15:43)
[2019-01-07] MEDS ORDERED: traMADol HCL 50 MG TABLET PO PRN ×2 (13:57→13:59)
[2019-01-07] MEDS ORDERED: SODIUM CHLORIDE 250 ML IV PRN (14:01)
--- NOTE | 2019-01-07 14:01 | PN ---
Progress Note (short form) - Note Progress Note: Renal follow up for ESRD pt seen and examined at the bedside awake and alert complains of pain in leg at operative site, 02/13 no IV access so unable to get morphine no cp, sob, abd pain, N/V/D last dialysis was Monday Vital Signs Temperature 98.6 F 01/07/19 10:00 Pulse Rate 68 01/07/19 10:00 Respiratory Rate 17 01/07/19 10:00 Blood Pressure 135/71 01/07/19 10:00 O2 Sat by Pulse Oximetry (%) 96 01/07/19 09:00 Intake & Output 01/04/19 01/05/19 01/06/19 01/07/19 23:59 23:59 23:59 23:59 Intake Total 475 100 400 150 Output Total 0 Balance 475 100 400 150 Weight 62.256 kg 62.369 kg 61.099 kg 62.097 kg NAD RRR, no M/R CTA, no rales or wheeze soft NT/ND trace LE edema, left foot in dressing CBC, BMP 01/07/19 06:43 01/07/19 06:43 Current Medications Acetaminophen (Tylenol -) 650 mg PO Q4H PRN PRN Reason: FEVER Last Admin: 01/07/19 10:43 Dose: 650 mg Atorvastatin Calcium (Lipitor -) 10 mg PO HS [facility] Last Admin: 01/06/19 21:08 Dose: 10 mg Clopidogrel Bisulfate (Plavix -) 75 mg PO DAILY [facility] Last Admin: 01/07/19 10:37 Dose: 75 mg Collagenase (Santyl -) 1 applic TP DAILY [facility]; Protocol Last Admin: 01/07/19 10:37 Dose: 1 applic Ferrous Sulfate (Feosol -) 325 mg PO DAILY [facility] Last Admin: 01/07/19 10:37 Dose: 325 mg Heparin Sodium (Porcine) (Heparin -) 5,000 unit SQ TID [facility] Last Admin: 01/07/19 06:18 Dose: 5,000 unit Insulin Aspart (Novolog Vial Sliding Scale -) 1 vial SQ TIDAC [facility]; Protocol Last Admin: 01/07/19 06:21 Dose: Not Given Labetalol HCl (Normodyne -) 300 mg PO TID [facility] Last Admin: 01/07/19 06:18 Dose: 300 mg Losartan Potassium (Cozaar -) 50 mg PO DAILY [facility] Last Admin: 01/07/19 10:37 Dose: 50 mg Morphine Sulfate (Morphine Sulfate) 4 mg IVPUSH Q6H PRN PRN Reason: PAIN LEVEL 6-10 Last Admin: 01/06/19 00:37 Dose: 4 mg Nifedipine (Procardia Xl -) 30 mg PO BID [facility] Last Admin: 01/07/19 10:37 Dose: 30 mg Ondansetron HCl (Zofran Injection) 4 mg IVPUSH Q6H PRN PRN Reason: NAUSEA AND/OR VOMITING Promethazine HCl (Phenergan Injection -) 12.5 mg IVPB Q6H PRN PRN Reason: NAUSEA-FOR RESCUE AFTER 15 MIN Senna (Senna -) 2 tab PO HS [facility] Last Admin: 01/06/19 21:08 Dose: 2 tab Sevelamer Carbonate (Renvela -) 800 mg PO TIDCM [facility] Last Admin: 01/07/19 08:38 Dose: 800 mg Tramadol HCl (Ultram -) 50 mg PO Q12H PRN PRN Reason: PAIN LEVEL 7 - 10 78 year old woman with hx of ESRD on HD (TTS, PVD s/p TMA 2018, HTN, DM, hyperlipidemia who presented with left heel wound. Pt reports wound has been itching and had become foul smelling. 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 Renal diet, 1.2L fluid restriction pain control, will add Ultram as pt does not have IV access to get morphine. vascular surgery follow up will give SHARA with HD for anemia check iron studies Asa Smith DO
--- NOTE | 2019-01-07 17:23 | PN ---
Progress Note, Physician Chief Complaint: Ms Crain is without complaint today. Denies cp, sob, n/v. - Current Medication List Current Medications: Active Medications Acetaminophen (Tylenol -) 650 mg PO Q4H PRN PRN Reason: FEVER Last Admin: 01/07/19 15:43 Dose: 650 mg Atorvastatin Calcium (Lipitor -) 10 mg PO HS [facility] Last Admin: 01/06/19 21:08 Dose: 10 mg Clopidogrel Bisulfate (Plavix -) 75 mg PO DAILY [facility] Last Admin: 01/07/19 10:37 Dose: 75 mg Collagenase (Santyl -) 1 applic TP DAILY [facility]; Protocol Last Admin: 01/07/19 10:37 Dose: 1 applic Epoetin Kin (Epogen -) 20,000 unit IVPUSH ONCE ONE Stop: 01/08/19 06:01 Ferrous Sulfate (Feosol -) 325 mg PO DAILY [facility] Last Admin: 01/07/19 10:37 Dose: 325 mg Heparin Sodium (Porcine) (Heparin -) 5,000 unit SQ TID [facility] Last Admin: 01/07/19 15:35 Dose: 5,000 unit Sodium Chloride (Normal Saline -) 250 mls @ 3,000 mls/hr IV PRN PRN PRN Reason: Hypotension during Dialysis Stop: 01/08/19 14:01 Insulin Aspart (Novolog Vial Sliding Scale -) 1 vial SQ TIDAC [facility]; Protocol Last Admin: 01/07/19 11:30 Dose: Not Given Labetalol HCl (Normodyne -) 300 mg PO TID [facility] Last Admin: 01/07/19 15:36 Dose: 300 mg Losartan Potassium (Cozaar -) 50 mg PO DAILY [facility] Last Admin: 01/07/19 10:37 Dose: 50 mg Nifedipine (Procardia Xl -) 30 mg PO BID [facility] Last Admin: 01/07/19 10:37 Dose: 30 mg Ondansetron HCl (Zofran Injection) 4 mg IVPUSH Q6H PRN PRN Reason: NAUSEA AND/OR VOMITING Promethazine HCl (Phenergan Injection -) 12.5 mg IVPB Q6H PRN PRN Reason: NAUSEA-FOR RESCUE AFTER 15 MIN Senna (Senna -) 2 tab PO HS [facility] Last Admin: 01/06/19 21:08 Dose: 2 tab Sevelamer Carbonate (Renvela -) 800 mg PO TIDCM [facility] Last Admin: 01/07/19 15:36 Dose: 800 mg Tramadol HCl (Ultram -) 50 mg PO Q12H PRN PRN Reason: PAIN LEVEL 7 - 10 Last Admin: 01/07/19 15:37 Dose: 50 mg - Objective Vital Signs: Vital Signs Temperature 37.2 C 01/07/19 14:12 Pulse Rate 69 01/07/19 14:12 Respiratory Rate 18 01/07/19 14:12 Blood Pressure 152/73 01/07/19 14:12 O2 Sat by Pulse Oximetry (%) 96 01/07/19 09:00 Constitutional: Yes: Well Nourished, No Distress, Calm Cardiovascular: Yes: Regular Rate and Rhythm. No: Gallop, Murmur, Rub Respiratory: Yes: Regular, CTA Bilaterally. No: Rales, Rhonchi, Wheezes Gastrointestinal: Yes: Normal Bowel Sounds, Soft. No: Distention, Tenderness Extremities: Yes: Other (L BKA) Edema: No Labs: CBC, BMP 01/07/19 06:43 01/07/19 06:43 INR, PTT INR 1.25 (0.83-1.09) H 01/04/19 06:27 Problem List - Problems (1) Osteomyelitis Code(s): M86.9 - OSTEOMYELITIS, UNSPECIFIED (2) Foot ulcer Code(s): L97.509 - NON-PRESSURE CHRONIC ULCER OTH PRT UNSP FOOT W UNSP SEVERITY Qualifiers: Laterality: left Non-pressure ulcer stage: unspecified non-pressure ulcer stage Qualified Code(s): L97.529 - Non-pressure chronic ulcer of other part of left foot with unspecified severity (3) ESRD (end stage renal disease) on dialysis Code(s): N18.6 - END STAGE RENAL DISEASE; Z99.2 - DEPENDENCE ON RENAL DIALYSIS (4) Hypertension Code(s): I10 - ESSENTIAL (PRIMARY) HYPERTENSION Qualifiers: Hypertension type: essential hypertension Qualified Code(s): I10 - Essential (primary) hypertension (5) Anemia Code(s): D64.9 - ANEMIA, UNSPECIFIED Qualifiers: Anemia type: due to chronic kidney disease Chronic kidney disease stage: on chronic dialysis Qualified Code(s): N18.6 - End stage renal disease; D63.1 - Anemia in chronic kidney disease; Z99.2 - Dependence on renal dialysis (6) Diabetes Code(s): E11.9 - TYPE 2 DIABETES MELLITUS WITHOUT COMPLICATIONS Qualifiers: Diabetes mellitus type: type 2 Diabetes mellitus terminal make up operator insulin use: without terminal make up operator use Diabetes mellitus complication status: with kidney complications Diabetes mellitus complication detail: with chronic kidney disease Chronic kidney disease stage: on chronic dialysis Qualified Code(s) : E11.22 - Type 2 diabetes mellitus with diabetic chronic kidney disease; N18.6 - End stage renal disease; Z99.2 - Dependence on renal dialysis (7) Hyperlipidemia Code(s): E78.5 - HYPERLIPIDEMIA, UNSPECIFIED Qualifiers: Hyperlipidemia type: pure hypercholesterolemia Qualified Code(s): E78.00 - Pure hypercholesterolemia, unspecified; E78.0 - Pure hypercholesterolemia (8) PAD (peripheral artery disease) Code(s): I73.9 - PERIPHERAL VASCULAR DISEASE, UNSPECIFIED (9) Hypokalemia Code(s): E87.6 - HYPOKALEMIA Assessment/Plan (1) Osteomyelitis Assessment/Plan: -s/p BKA and tolerated well -off antibiotics -plan to discharge to SNF Code(s): M86.9 - OSTEOMYELITIS, UNSPECIFIED (2) Foot ulcer Assessment/Plan: -as above Code(s): L97.509 - NON-PRESSURE CHRONIC ULCER OTH PRT UNSP FOOT W UNSP SEVERITY Qualifiers: Laterality: left Non-pressure ulcer stage: unspecified non-pressure ulcer stage Qualified Code(s): L97.529 - Non-pressure chronic ulcer of other part of left foot with unspecified severity (3) ESRD (end stage renal disease) on dialysis Assessment/Plan: -continue HD Code(s): N18.6 - END STAGE RENAL DISEASE; Z99.2 - DEPENDENCE ON RENAL DIALYSIS (4) Hypertension Assessment/Plan: -continue losartan, labetalol, and nifedipine Code(s): I10 - ESSENTIAL (PRIMARY) HYPERTENSION Qualifiers: Hypertension type: essential hypertension Qualified Code(s): I10 - Essential (primary) hypertension (5) Anemia Assessment/Plan: -at baseline Code(s): D64.9 - ANEMIA, UNSPECIFIED Qualifiers: Anemia type: due to chronic kidney disease Chronic kidney disease stage: on chronic dialysis Qualified Code(s): N18.6 - End stage renal disease; D63.1 - Anemia in chronic kidney disease; Z99.2 - Dependence on renal dialysis (6) Diabetes Assessment/Plan: -continue diabetic diet -continue SSI Code(s): E11.9 - TYPE 2 DIABETES MELLITUS WITHOUT COMPLICATIONS Qualifiers: Diabetes mellitus type: type 2 Diabetes mellitus snf insulin use: without terminal make up operator use Diabetes mellitus complication status: with kidney complications Diabetes mellitus complication detail: with chronic kidney disease Chronic kidney disease stage: on chronic dialysis Qualified Code(s) : E11.22 - Type 2 diabetes mellitus with diabetic chronic kidney disease; N18.6 - End stage renal disease; Z99.2 - Dependence on renal dialysis (7) Hyperlipidemia Assessment/Plan: -continue statin Code(s): E78.5 - HYPERLIPIDEMIA, UNSPECIFIED Qualifiers: Hyperlipidemia type: pure hypercholesterolemia Qualified Code(s): E78.00 - Pure hypercholesterolemia, unspecified; E78.0 - Pure hypercholesterolemia (8) PAD (peripheral artery disease) Assessment/Plan: -continue plavix Code(s): I73.9 - PERIPHERAL VASCULAR DISEASE, UNSPECIFIED (9) Hypokalemia Assessment/Plan: -resolved Code(s): E87.6 - HYPOKALEMIA
[2019-01-07] MEDS: SENNOSIDES 8.6MG TABLET (FP) PO SCH (21:03)
[2019-01-07] MEDS: ATORVASTATIN CA 10 MG TABLET (FP) PO SCH (21:03)
[2019-01-08] MEDS: LABETALOL HCL 100 MG TABLET (FP) PO SCH ×2 (06:04→16:18)
[2019-01-08] MEDS: HEPARIN NA (PORCINE) 5,000 UNITS/ML 1ML VIAL SQ SCH ×2 (06:04→16:18)
[2019-01-08] MEDS: INSULIN SLIDING SCALE (NOVOLOG) 1 VIAL SQ SCH ×2 (06:05→11:48)
--- NOTE | 2019-01-08 08:31 | PN ---
Progress Note, Physician - Current Medication List Current Medications: Active Medications Acetaminophen (Tylenol -) 650 mg PO Q4H PRN PRN Reason: FEVER Last Admin: 01/07/19 15:43 Dose: 650 mg Atorvastatin Calcium (Lipitor -) 10 mg PO HS [facility] Last Admin: 01/07/19 21:03 Dose: 10 mg Clopidogrel Bisulfate (Plavix -) 75 mg PO DAILY [facility] Last Admin: 01/07/19 10:37 Dose: 75 mg Collagenase (Santyl -) 1 applic TP DAILY [facility]; Protocol Last Admin: 01/07/19 10:37 Dose: 1 applic Epoetin Kin (Epogen -) 20,000 unit IVPUSH ONCE ONE Stop: 01/08/19 06:01 Ferrous Sulfate (Feosol -) 325 mg PO DAILY [facility] Last Admin: 01/07/19 10:37 Dose: 325 mg Heparin Sodium (Porcine) (Heparin -) 5,000 unit SQ TID [facility] Last Admin: 01/08/19 06:04 Dose: 5,000 unit Sodium Chloride (Normal Saline -) 250 mls @ 3,000 mls/hr IV PRN PRN PRN Reason: Hypotension during Dialysis Stop: 01/08/19 14:01 Insulin Aspart (Novolog Vial Sliding Scale -) 1 vial SQ TIDAC [facility]; Protocol Last Admin: 01/08/19 06:05 Dose: Not Given Labetalol HCl (Normodyne -) 300 mg PO TID [facility] Last Admin: 01/08/19 06:04 Dose: 300 mg Losartan Potassium (Cozaar -) 50 mg PO DAILY [facility] Last Admin: 01/07/19 10:37 Dose: 50 mg Nifedipine (Procardia Xl -) 30 mg PO BID [facility] Last Admin: 01/07/19 21:03 Dose: 30 mg Ondansetron HCl (Zofran Injection) 4 mg IVPUSH Q6H PRN PRN Reason: NAUSEA AND/OR VOMITING Promethazine HCl (Phenergan Injection -) 12.5 mg IVPB Q6H PRN PRN Reason: NAUSEA-FOR RESCUE AFTER 15 MIN Senna (Senna -) 2 tab PO HS [facility] Last Admin: 01/07/19 21:03 Dose: 2 tab Sevelamer Carbonate (Renvela -) 800 mg PO TIDCM [facility] Last Admin: 01/07/19 17:56 Dose: 800 mg Tramadol HCl (Ultram -) 50 mg PO Q12H PRN PRN Reason: PAIN LEVEL 7 - 10 Last Admin: 01/07/19 15:37 Dose: 50 mg - Objective Vital Signs: Vital Signs Temperature 98.8 F 01/08/19 06:00 Pulse Rate 57 L 01/08/19 06:00 Respiratory Rate 20 01/08/19 06:00 Blood Pressure 147/64 01/08/19 06:00 O2 Sat by Pulse Oximetry (%) 96 01/07/19 09:00 Labs: CBC, BMP 01/07/19 06:43 01/07/19 06:43 INR, PTT INR 1.25 (0.83-1.09) H 01/04/19 06:27
[2019-01-08] MEDS: SEVELAMER CARBONATE 800 MG TAB (FP) PO SCH ×2 (09:08→11:48)
[2019-01-08] MEDS: NIFEdipine E.R. 30 MG TABLET (FP) PO SCH (09:09)
[2019-01-08] MEDS: LOSARTAN POTASSIUM 50 MG TABLET (FP) PO SCH (09:09)
[2019-01-08] MEDS: FERROUS SO4 325 MG TABLET (FP) PO SCH (09:10)
[2019-01-08] MEDS: CLOPIDOGREL BISULFATE 75 MG TABLET (FP) PO SCH (09:10)
[2019-01-08 09:52] LABS: HEMATOCRIT 25.7 % (32.4-45.2); MCH 28.7 pg (25.7-33.7); MCHC 31.2 g/dl (32.0-36.0); MEAN PLT VOLUME 7.5 fl (7.5-11.1); PLATELET COUNT 312 K/MM3 (134-434); RBC 2.79 M/mm3 (3.60-5.2); RDW 17.5 % (11.6-15.6); WHITE BLOOD COUNT 7.5 K/mm3 (4.0-10.0)
[2019-01-08 10:01] VITALS: TEMP 98
[2019-01-08 10:31] LABS: CALCIUM 8.9 mg/dL (8.5-10.1); CREATININE 4.4 mg/dL (0.55-1.3); PHOSPHOROUS 3.3 mg/dL (2.5-4.9); POTASSIUM 4.4 mmol/L (3.5-5.1)
[2019-01-08] MEDS ORDERED: EPOETIN ALFA 20,000 UNIT/1 ML VIAL IVPUSH ONE (10:45)
[2019-01-08] MEDS: COLLAGENASE CLOSTRIDIUM HIST. 30 GRAMS TUBE TP SCH (11:47)
--- NOTE | 2019-01-08 13:49 | PN ---
Progress Note (short form) - Note Progress Note: Renal follow up for ESRD pt seen and examined during dialysis awake and alert no acute complaints pain is well controlled BP stable, UF goal 1.5-2L access with good flow Vital Signs Temperature 98 F 01/08/19 10:00 Pulse Rate 57 L 01/08/19 11:55 Respiratory Rate 18 01/08/19 11:55 Blood Pressure 147/64 01/08/19 11:55 O2 Sat by Pulse Oximetry (%) 96 01/08/19 09:00 Intake & Output 01/05/19 01/06/19 01/07/19 01/08/19 23:59 23:59 23:59 23:59 Intake Total 100 400 490 100 Balance 100 400 490 100 Weight 62.369 kg 61.099 kg 62.097 kg 61.416 kg NAD RRR, no M/R CTA, no rales or wheeze soft NT/ND trace LE edema, left foot in dressing CBC, BMP 01/08/19 09:10 01/08/19 09:10 Current Medications Acetaminophen (Tylenol -) 650 mg PO Q4H PRN PRN Reason: FEVER Last Admin: 01/07/19 15:43 Dose: 650 mg Atorvastatin Calcium (Lipitor -) 10 mg PO HS [facility] Last Admin: 01/07/19 21:03 Dose: 10 mg Clopidogrel Bisulfate (Plavix -) 75 mg PO DAILY [facility] Last Admin: 01/08/19 09:10 Dose: 75 mg Collagenase (Santyl -) 1 applic TP DAILY [facility]; Protocol Last Admin: 01/08/19 11:47 Dose: Not Given Ferrous Sulfate (Feosol -) 325 mg PO DAILY [facility] Last Admin: 01/08/19 09:10 Dose: 325 mg Heparin Sodium (Porcine) (Heparin -) 5,000 unit SQ TID [facility] Last Admin: 01/08/19 06:04 Dose: 5,000 unit Sodium Chloride (Normal Saline -) 250 mls @ 3,000 mls/hr IV PRN PRN PRN Reason: Hypotension during Dialysis Stop: 01/08/19 14:01 Insulin Aspart (Novolog Vial Sliding Scale -) 1 vial SQ TIDAC [facility]; Protocol Last Admin: 01/08/19 11:48 Dose: Not Given Labetalol HCl (Normodyne -) 300 mg PO TID [facility] Last Admin: 01/08/19 06:04 Dose: 300 mg Losartan Potassium (Cozaar -) 50 mg PO DAILY [facility] Last Admin: 01/08/19 09:09 Dose: 50 mg Nifedipine (Procardia Xl -) 30 mg PO BID [facility] Last Admin: 01/08/19 09:09 Dose: 30 mg Ondansetron HCl (Zofran Injection) 4 mg IVPUSH Q6H PRN PRN Reason: NAUSEA AND/OR VOMITING Promethazine HCl (Phenergan Injection -) 12.5 mg IVPB Q6H PRN PRN Reason: NAUSEA-FOR RESCUE AFTER 15 MIN Senna (Senna -) 2 tab PO HS [facility] Last Admin: 01/07/19 21:03 Dose: 2 tab Sevelamer Carbonate (Renvela -) 800 mg PO TIDCM [facility] Last Admin: 01/08/19 11:48 Dose: Not Given Tramadol HCl (Ultram -) 50 mg PO Q12H PRN PRN Reason: PAIN LEVEL 7 - 10 Last Admin: 01/07/19 15:37 Dose: 50 mg 78 year old woman with hx of ESRD on HD (TTS, PVD s/p TMA 2018, HTN, DM, hyperlipidemia who presented with left heel wound. Pt reports wound has been itching and had become foul smelling. #LE wound #ESRD on HD #DM #PVD #Hypertension tolerating dialysis well Renal diet, 1.2L fluid restriction pain control vascular surgery follow up, wound care will give SHARA with HD for anemia Asa Smith DO
[2019-01-08 14:41] VITALS: BP 132/60; PULSE 59
--- NOTE | 2019-01-08 15:33 | PN ---
Progress Note (short form) - Note Progress Note: s: no cp sob palps dizzy Current Medications Generic Name Dose Route Start Last Admin Trade Name Freq PRN Reason Stop Dose Admin Acetaminophen 650 mg 01/04/19 18:00 01/07/19 15:43 Tylenol - PO 650 mg Q4H PRN Administration FEVER Atorvastatin Calcium 10 mg 01/04/19 22:00 01/07/19 21:03 Lipitor - PO 10 mg HS [facility] Administration Clopidogrel Bisulfate 75 mg 01/05/19 10:00 01/08/19 09:10 Plavix - PO 75 mg DAILY [facility] Administration Collagenase 1 applic 01/05/19 10:00 01/08/19 11:47 Santyl - TP Not Given DAILY [facility] Protocol Ferrous Sulfate 325 mg 01/05/19 10:00 01/08/19 09:10 Feosol - PO 325 mg DAILY [facility] Administration Heparin Sodium (Porcine) 5,000 unit 01/04/19 22:00 01/08/19 06:04 Heparin - SQ 5,000 unit TID [facility] Administration Insulin Aspart 1 vial 01/05/19 07:00 01/08/19 11:48 Novolog Vial Sliding Scale - SQ Not Given TIDAC [facility] Protocol Labetalol HCl 300 mg 01/04/19 22:00 01/08/19 06:04 Normodyne - PO 300 mg TID [facility] Administration Losartan Potassium 50 mg 01/05/19 10:00 01/08/19 09:09 Cozaar - PO 50 mg DAILY [facility] Administration Nifedipine 30 mg 01/04/19 22:00 01/08/19 09:09 Procardia Xl - PO 30 mg BID [facility] Administration Ondansetron HCl 4 mg 01/04/19 18:00 Zofran Injection IVPUSH Q6H PRN NAUSEA AND/OR VOMITING Promethazine HCl 12.5 mg 01/04/19 18:00 Phenergan Injection - IVPB Q6H PRN NAUSEA-FOR RESCUE AFTER 15 MIN Senna 2 tab 01/04/19 22:00 01/07/19 21:03 Senna - PO 2 tab HS [facility] Administration Sevelamer Carbonate 800 mg 01/05/19 08:00 01/08/19 11:48 Renvela - PO Not Given TIDCM [facility] Tramadol HCl 50 mg 01/07/19 13:59 01/07/19 15:37 Ultram - PO 50 mg Q12H PRN Administration PAIN LEVEL 7 - 10 Vital Signs Period Temp Pulse Resp BP Sys/Jha Pulse Ox Last 24 Hr 98 F-99.1 F 55-69 18-20 121-152/48-73 96 Constitutional: Yes: No Distress no jvd Cardiovascular: Yes: Regular Rate and Rhythm, s1s2 no mrg Respiratory: Yes: CTA Bilaterally nl eff Gastrointestinal: Yes: Soft Edema: No aao3 no diaphoresis jaundice Labs: CBC, BMP 01/08/19 09:10 01/08/19 09:10 Assessment/Plan DATA: Echo and Pharm MPI done here 07/2018 showed Normal LV fx, LVH, AVS, mild MR/AR with no ischemia on nuclear st IMP: 1. ESRD 2. 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 3. HTN RECL 1. s/p bka, plans for snf now 2. Cont current bp meds. 3. Cont statin and antiplatelet Rx: currently on plavix and atorva 10mg. 4. Abx as per PMD and Vascular 5. cardiac garcia stable for snf
--- NOTE | 2019-01-08 17:18 | DS ---
Physical Examination Vital Signs: Vital Signs Temperature 36.6 C 01/08/19 10:00 Pulse Rate 59 L 01/08/19 14:15 Respiratory Rate 18 01/08/19 14:15 Blood Pressure 132/60 01/08/19 14:15 O2 Sat by Pulse Oximetry (%) 96 01/08/19 09:00 Constitutional: Yes: Well Nourished, No Distress, Calm Cardiovascular: Yes: Regular Rate and Rhythm. No: Gallop, Murmur, Rub Respiratory: Yes: Regular, CTA Bilaterally. No: Rales, Rhonchi, Wheezes Gastrointestinal: Yes: Normal Bowel Sounds, Soft. No: Distention, Tenderness Extremities: Yes: WNL, Other (L BKA) Edema: No Labs: CBC, BMP 01/08/19 09:10 01/08/19 09:10 Discharge Summary Reason For Visit: CHRONIC KIDNEY DISEASE Hospital Course: (1) Osteomyelitis Code(s): M86.9 - OSTEOMYELITIS, UNSPECIFIED (2) Foot ulcer Code(s): L97.509 - NON-PRESSURE CHRONIC ULCER OTH PRT UNSP FOOT W UNSP SEVERITY Qualifiers: Laterality: left Non-pressure ulcer stage: unspecified non-pressure ulcer stage Qualified Code(s): L97.529 - Non-pressure chronic ulcer of other part of left foot with unspecified severity (3) ESRD (end stage renal disease) on dialysis Code(s): N18.6 - END STAGE RENAL DISEASE; Z99.2 - DEPENDENCE ON RENAL DIALYSIS (4) Hypertension Code(s): I10 - ESSENTIAL (PRIMARY) HYPERTENSION Qualifiers: Hypertension type: essential hypertension Qualified Code(s): I10 - Essential (primary) hypertension (5) Anemia Code(s): D64.9 - ANEMIA, UNSPECIFIED Qualifiers: Anemia type: due to chronic kidney disease Chronic kidney disease stage: on chronic dialysis Qualified Code(s): N18.6 - End stage renal disease; D63.1 - Anemia in chronic kidney disease; Z99.2 - Dependence on renal dialysis (6) Diabetes Code(s): E11.9 - TYPE 2 DIABETES MELLITUS WITHOUT COMPLICATIONS Qualifiers: Diabetes mellitus type: type 2 Diabetes mellitus local intermodal truck driver insulin use: without local intermodal truck driver use Diabetes mellitus complication status: with kidney complications Diabetes mellitus complication detail: with chronic kidney disease Chronic kidney disease stage: on chronic dialysis Qualified Code(s) : E11.22 - Type 2 diabetes mellitus with diabetic chronic kidney disease; N18.6 - End stage renal disease; Z99.2 - Dependence on renal dialysis (7) Hyperlipidemia Code(s): E78.5 - HYPERLIPIDEMIA, UNSPECIFIED Qualifiers: Hyperlipidemia type: pure hypercholesterolemia Qualified Code(s): E78.00 - Pure hypercholesterolemia, unspecified; E78.0 - Pure hypercholesterolemia (8) PAD (peripheral artery disease) Code(s): I73.9 - PERIPHERAL VASCULAR DISEASE, UNSPECIFIED (9) Hypokalemia Code(s): E87.6 - HYPOKALEMIA Ms Crain is a very pleasant 78 year old female who came in with osteomyelitis. She was seen by ID and vascular surgery. She was placed on zosyn at first and then transitioned to rocephin. She was evaluated for L BKA and she agreed. She was cleared by cardiology and underwent L BKA without difficulty. She finished her course of antibiotics and observed off of antibiotics. She remained stable. She was seen by nephrology and continued on her HD. she is currently doing well and stable for transfer to SNF. She will be discharged today. 37 minutes spent in preparation of this discharge Condition: Stable - Instructions Diet, Activity, Other Instructions: Post-operative Instructions Wound: Change dressing daily (dry gauze over suture site, wrap with kerlix and stan, keep dressing clean and dry. Keep knee immobilizer intact. You may remove it only to participate in physical therapy. Sponge bath only, no showering. Check the incision daily after removal of the dressing for redness or drainage. If you note any redness or drainage, contact your surgeon immediately. Do not put creams or ointments on the wound until cleared by your surgeon. Diet/Self Care: Continue your regular diet. We recommend eating a nutritious diet as this will aid in wound healing. If you are on Aspirin or Clopidogrel (Plavix), you may resume these medications as directed. Increase your fiber intake if taking narcotic pain medications as constipation is a common side effect. Pain Relief: Take pain medication as prescribed. Do not drive, drink alcohol or operate heavy machinery while taking narcotic pain medications. If the pain medication you have been prescribed for pain contains Acetaminophen (Tylenol), do not take additional Tylenol with this pain medication. You should not exceed more than 3g (3000mg) of Tylenol in 24 hours as this can lead to liver damage or failure. Follow-up Please call the office to schedule your follow up appointment in 2 weeks. Call your doctors office or go to the ER immediately if you develop: Trouble breathing, chest tightness or shortness of breath Oral temperature greater than 100.5 F Excessive redness, swelling, or drainage at the incision site. Foul odor from the incision. Referrals: Gautam Driscoll MD [Primary Care Provider] - Boris Rodriguez DO [Staff Physician] - Asa Smith MD [Staff Physician] - Disposition: [facility] - Home Medications Comprehensive Discharge Medication List: Ambulatory Orders Atorvastatin Ca [Lipitor] 10 mg PO HS 03/29/17 Sevelamer Carbonate [Renvela -] 800 mg PO TID 03/29/17 Acetaminophen [Tylenol .Regular Strength -] 650 mg PO Q4H PRN tablet 08/06/18 Clopidogrel Bisulfate [Clopidogrel] 75 mg PO DAILY #30 tablet 08/06/18 Ferrous Sulfate 325 mg PO DAILY 08/23/18 Labetalol HCl [Normodyne -] 300 mg PO TID tablet 09/17/18 Sennosides [Senna -] 2 tab PO HS tablet 09/17/18 Collagenase Clostridium Hist. [Santyl -] 1 applic TP DAILY tube 01/07/19 Insulin Sliding Scale [Novolog Vial Sliding Scale -] 1 vial SQ TIDAC units 10/23 Losartan Potassium [Cozaar -] 50 mg PO DAILY tablet 01/07/19 Nifedipine ER [Procardia XL -] 30 mg PO BID tab.er.24 01/07/19 traMADol HCL [Ultram -] 50 mg PO Q12H PRN tablet MDD 100mg 01/07/19
[2019-01-09 08:06] LABS: SERUM IRON SATURATION 17 % (15-55); TOTAL IRON BINDING CAPACITY 122 ug/dL (250-450); UIBC 101 ug/dL (118-369)
--- NOTE | 2019-01-11 11:10 | PATH ---
Surgical Pathology Report Patient Name: REJI LY Med. Rec. #: [id number] /Age/Gender: 1940 (Age: 78) / F Account: [id number] Location: [facility] MED/SURG Taken: 01/04/2019 Received: 01/08/2019 Reported: 01/11/2019 Physicians: Boris Rodriguez PHYSICIAN EMERGENCY DEPT Specimen(s) Received LEFT LOWER EXTREMITY Clinical History Chronic kidney disease/gangrene Left lower leg Final Diagnosis LOWER EXTREMITY, LEFT, BELOW THE KNEE AMPUTATION: LOWER LEG WITH MARKED ACUTE AND CHRONIC INFLAMMATION, ULCERATION, AND GANGRENOUS NECROSIS INVOLVING PREVIOUS AMPUTATION SITE, HEEL, AND VOLAR SURFACE OF FOOT. UNDERLYING BONE WITH ACUTE AND CHRONIC OSTEOMYELITIS. SEGMENTAL MODERATE TO SEVERE CALCIFIC ATHEROSCLEROSIS INVOLVING ANTERIOR AND POSTERIOR TIBIAL ARTERIES, AND DORSALIS PEDIS. SURGICAL MARGINS ARE VIABLE. Electronically Signed Maria Elena Gonzalez M.D. Gross Description Received fresh, labeled with the patient's name and indicated on the requisition to be a left lower extremity, is a 25 cm length, left below the knee amputation. There is a portion of foot present measuring 17.5 cm in length. All 5 digits appear to have been previously amputated. The previous amputation site displays a 9.0 x 3.3 cm ulcerated, necrotic-appearing lesion. There is an additional 6.5 x 6.0 cm black, gangrenous lesion occupying the heel and involving the underlying bone. There is a 3.3 x 2.0 cm black, gangrenous, focally ulcerated lesion on the medial aspect of the volar surface. The margin of resection grossly appears viable. Sectioning of the vasculature displays focal, segmental, moderate to severe atherosclerosis. Prop Maker sections are submitted in 8 cassettes as follows: 1-lesion from previous amputation site; 2-heel lesion with underlying bone, following decalcification; 3-medial foot lesion; 4-skin and soft tissue margin; 5-bone margin, following decalcification; 6-anterior tibial artery, following decalcification; 7-posterior tibial artery, following decalcification; 8-dorsalis pedis. /01/09/201901/09/2019
== END 2019-01-08 16:28 | DRG 239 ==
LOC: JER 10:10 → JERBED 14:36 → J8W 18:46
PROVIDERS: ADMIT Hospitalist; ATTEND Internal Medicine
PROC: B40GYZZ Plain Radiography of Left Lower Extremity Arteries using Other Contrast (ICD-10-PCS; 2019-01-01)
PROC: 0Y6J0Z2 Detachment at Left Lower Leg, Mid, Open Approach (ICD-10-PCS; principal; 2019-01-04 14:30)
PROC: 5A1D70Z Performance of Urinary Filtration, Intermittent, Less than 6 Hours Per Day (ICD-10-PCS; 2019-01-08)
DX: E11.52 Type 2 diabetes mellitus with diabetic peripheral angiopathy with gangrene (principal); N18.6 End stage renal disease; I96 Gangrene, not elsewhere classified; M86.10 Other acute osteomyelitis, unspecified site; I12.0 Hypertensive chronic kidney disease with stage 5 chronic kidney disease or end stage renal disease; L89.620 Pressure ulcer of left heel, unstageable; E11.69 Type 2 diabetes mellitus with other specified complication; E78.5 Hyperlipidemia, unspecified; E87.6 Hypokalemia; D63.1 Anemia in chronic kidney disease; Z99.2 Dependence on renal dialysis; E11.22 Type 2 diabetes mellitus with diabetic chronic kidney disease; K21.9 Gastro-esophageal reflux disease without esophagitis
CPT/HCPCS: 36415; 71045-TC-FY; 73630-TC-LT; 73718-TC-LT; 75635-TC; 76000-TC-FY; 80048; 80053; 82040; 82550; 82565; 82728; 82962; 83036; 83540; 83550; 83605; 83735; 84100; 84484; 84520; 85025; 85027; 85610; 85651; 85730; 86140; 86704; 86706; 86708; 86803; 86850; 86900; 86901; 86922; 87040; 87070; 87186; 87205; 87340; 88307-TC; 88311-TC; 93005; 93010; 94760; 97116-GP; 97162-GP; 97597; 99285-25; G0480; J0885; J1644